=== PATIENT | male | born 1955 | race Caucasian/White ===

== ENCOUNTER 2016-07-15 19:24 | Emergency (ER) | payer OTHER ==
[~2016-07-15 19:24] MED LIST: TRAM-29 PO
--- NOTE | 2016-07-15 20:32 | PHYS DOC ---
Past Medical History Past Medical History: No Pertinent History Past Surgical History: Other Additional Past Surgical Histo: bilateral groin hernia repair Additional Information: 3 ppd Alcohol Use: None Drug Use: None Adult General Chief Complaint Chief Complaint: LOWER EXT PAIN [facility] HPI Patient is a 61 year old male who presents emergency room today with complaint of bilateral lower leg swelling and redness that is been going on for greater than 1 month. States he has redness that is constant bilaterally and fluctuating bilateral lower extremity swelling. States swelling is worse in the evening after work. Has achy pain when swelling is worst. Swelling improves after he sleeps. He is not purposefully elevating feet. Patient's was concerned that it may be due to an episode that happened years ago in which a tree had fallen onto his left leg causing an injury. 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 He denies any additional injury to his leg. Patient states that he does have a primary care doctor. He denies any history of chronic, ongoing medical conditions. He denies antibiotic use within the past 90 days. He states that the pain in his left leg in the swelling in his foot is primary reason for coming to the emergency room tonight. Review of Systems Review of Systems Constitutional: Denies fever or chills [] Eyes: Denies change in visual acuity, redness, or eye pain [] HENT: Denies nasal congestion or sore throat [] Respiratory: Denies cough or shortness of breath [] Cardiovascular: No additional information not addressed in HPI [] GI: Denies abdominal pain, nausea, vomiting, bloody stools or diarrhea [] : Denies dysuria or hematuria [] Musculoskeletal: Denies back pain or joint pain [] Integument: Denies rash or skin lesions [] Neurologic: Denies headache, focal weakness or sensory changes [] Endocrine: Denies polyuria or polydipsia [] Allergies Allergies Allergies Coded Allergies Type Severity Reaction Last Updated Verified codeine Allergy Intermediate Rash 06/07/14 Yes Physical Exam Physical Exam Constitutional: Well developed, well nourished, no acute distress, non-toxic appearance. Patient is afebrile. HENT: Normocephalic, atraumatic, bilateral external ears normal, oropharynx moist, no oral exudates, nose normal. [] Eyes: PERRLA, EOMI, conjunctiva normal, no discharge. [] Neck: Normal range of motion, no tenderness, supple, no stridor. [] Cardiovascular:Heart rate regular rhythm, no murmur [] Lungs & Thorax: Bilateral breath sounds clear to auscultation [] Abdomen: Bowel sounds normal, soft, no tenderness, no masses, no pulsatile masses. [] Skin: Warm, dry, no erythema, no rash. [] Back: No tenderness, no CVA tenderness. [] Extremities: Bilateral lower extremities with 2+ edema distal to knees. Left minimally greater than right. No tenderness/warmth/crepitance/induration/ fluctuance. The color and character of the patient's skin is more consistent with chronic venous stasis and hemosiderin deposition in the skin itself.. There are callous formation primarily to the medial and lateral aspects of each foot were friction areas from shoe wear would be. There are also small blisters to the medial edge of his feet with clear fluid filling. These areas are nontender. There is no purulent drainage. Neurologic: Alert and oriented X 3, normal motor function, normal sensory function, no focal deficits noted. [] Psychologic: Affect normal, judgement normal, mood normal. [] Current Patient Data Vital Signs Vital Signs Date Time Temp Pulse Resp B/P Pulse Ox O2 Delivery O2 Flow Rate FiO2 07/15/16 21:54 86 22 162/93 98 Room Air 07/15/16 20:10 98.3 98.3 Lab Values Laboratory Tests Test 07/15/16 20:31 White Blood Count 6.9x10^3/uL (4.0-11.0) Red Blood Count 4.68x10^6/uL (4.30-5.70) Hemoglobin 14.9g/dL (13.0-17.5) Hematocrit 44.4% (39.0-53.0) Mean Corpuscular Volume 95fL (79-100) Mean Corpuscular Hemoglobin 32pg (25-35) Mean Corpuscular Hemoglobin Concent 34g/dL (31-37) Red Cell Distribution Width 13.7% (11.5-14.5) Platelet Count 228x10^3/uL (140-400) Neutrophils (%) (Auto) 47% (31-73) Lymphocytes (%) (Auto) 37% (24-48) Monocytes (%) (Auto) 10% (0-9) H Eosinophils (%) (Auto) 6% (0-3) H Basophils (%) (Auto) 1% (0-3) Neutrophils # (Auto) 3.2x10^3uL (1.8-7.7) Lymphocytes # (Auto) 2.6x10^3/uL (1.0-4.8) Monocytes # (Auto) 0.7x10^3/uL (0.0-1.1) Eosinophils # (Auto) 0.4x10^3/uL (0.0-0.7) Basophils # (Auto) 0.1x10^3/uL (0.0-0.2) Sodium Level 139mmol/L (136-145) Potassium Level 3.6mmol/L (3.5-5.1) Chloride Level 104mmol/L (98-107) Carbon Dioxide Level 27mmol/L (21-32) Anion Gap 8 (6-14) Blood Urea Nitrogen 13mg/dL (8-26) Creatinine 0.7mg/dL (0.7-1.3) Estimated GFR (Cockcroft-Gault) 113.9 BUN/Creatinine Ratio 19 (6-20) Glucose Level 114mg/dL (70-99) H Calcium Level 9.3mg/dL (8.5-10.1) Total Bilirubin 0.5mg/dL (0.2-1.0) Aspartate Amino Transferase (AST) 95U/L (15-37) H Alanine Aminotransferase (ALT) 129U/L (16-63) H Alkaline Phosphatase 139U/L (46-116) H Troponin I Quantitative < 0.017ng/mL (0.000-0.055) LX-Wqh-N-Type Natriuretic Peptide 41pg/mL (0-124) Total Protein 7.7g/dL (6.4-8.2) Albumin 3.6g/dL (3.4-5.0) Albumin/Globulin Ratio 0.9 (1.0-1.7) L Laboratory Tests 07/15/16 20:31 Laboratory Tests 07/15/16 20:31 EKG EKG Twelve-lead EKG performed at 2028 shows a sinus rhythm with a heart rate of 103 bpm. There appeared to be PACs. MD interval is 152 ms with a QRS mandaeism of 88 ms and a QT duration of 468 ms. Radiology/Procedures Radiology/Procedures 3 views patient's left leg, ankle and foot were performed with adequate technique. The lamination technician had initially performed x-rays of the right leg instead of the left. There is no evidence of acute injury, osteomyelitis. There is evidence of an old avulsion fracture the base of the fifth metatarsal. Course & Med Decision Making Course & Med Decision Making Patient was moved from the [facility] area the emergency department to the acute area for IV access, laboratory work and EKG to workup possible infectious vs cardiogenic vs other cause of edema and skin discoloration. Laboratory evaluation is unremarkable other than transaminitis which is not likely related to his current issue. Discussed he likely has chronic venous stasis changes. Discussed symptomatic care with leg elevation and use of compressive stockings. Discussed the importance of follow-up with primary care for further symptomatic care and evaluation. Return precautions given. He understands and agrees with plan. Patient was seen and examined with FABIO Bourgeois. I agree with documentation. I have edited documentation to coincide with my encounter as well as his. -MD Ivette Panchal Disclaimer Ivette Disclaimer This electronic medical record was generated, in whole or in part, using a voice recognition dictation system. Departure Departure Impression: Primary Impression: Venous stasis dermatitis Additional Impression: Friction blisters of the soles Disposition: 01 HOME, SELF-CARE Condition: GOOD Referrals: UNKNOWN PCP NAME (PCP) Patient Instructions: Blisters, Venous Stasis and Chronic Venous Insufficiency Additional Instructions: 1. There is no evidence of infection at this time. Your laboratory work and x- rays here today are normal. 2. Review the discharge instructions provided for self-care guidelines and reasons to return to the emergency department. You will need to put your feet above the level of your heart at the end of the day to help get the swelling down in your legs. 3. You need a primary care doctor to address your medical concerns. A pamphlet is provided to you for assistance in finding a primary care doctor in which you should follow-up within the next 7-10 days. Problem Qualifiers LEE SANTIAGO Jul 15, 2016 20:32 Felicia CARSON MD Jul 16, 2016 22:14
[2016-07-15 20:39] LABS: BASO # 0.1 x10^3/uL (0.0-0.2); BASO % 1 % (0-3); EOS % 6 % (0-3); HEMATOCRIT 44.4 % (39.0-53.0); HEMOGLOBIN 14.9 g/dL (13.0-17.5); LYMPH # 2.6 x10^3/uL (1.0-4.8); LYMPH % 37 % (24-48); MEAN CORPUSCULAR HEMOGLOBIN 32 pg (25-35); MEAN CORPUSCULAR HGB CONC 34 g/dL (31-37); MEAN CORPUSCULAR VOLUME 95 fL (79-100); MONO % 10 % (0-9); NEUT % 47 % (31-73); PLATELET COUNT 228 x10^3/uL (140-400); RED BLOOD COUNT 4.68 x10^6/uL (4.30-5.70); RED CELL DISTRIBUTION WIDTH 13.7 % (11.5-14.5); WHITE BLOOD COUNT 6.9 x10^3/uL (4.0-11.0)
[2016-07-15 21:04] LABS: CALCIUM 9.3 mg/dL (8.5-10.1); CREATININE 0.7 mg/dL (0.7-1.3); GFR 113.9; POTASSIUM 3.6 mmol/L (3.5-5.1)
[2016-07-15 21:10] LABS: TOTAL BILIRUBIN 0.5 mg/dL (0.2-1.0); TOTAL PROTEIN 7.7 g/dL (6.4-8.2)
[2016-07-15 21:26] LABS: ALBUMIN 3.6 g/dL (3.4-5.0); ALBUMIN/GLOBULIN RATIO 0.9 (1.0-1.7)
[2016-07-15 21:54] VITALS: BP 162/93
--- NOTE | 2016-07-16 06:31 | EKG ---
[facility] [address] [place] [address] Test Date: 2016-07-15 Test Time: 20:29:42 Pat Name: DEANDRE WARREN Department: Room: Gender: M Physical Therapy Resident: : 1955 Requested By: LEE SANTIAGO Order Number: [id number] Reading MD: Measurements Intervals [place] Rate: 103 P: 38 [place]: 152 QRS: 43 QRSD: 88 T: 43 QT: 356 QTc: 468 Interpretive Statements SINUS TACHYCARDIA ATRIAL PREMATURE COMPLEX(ES) OTHERWISE NORMAL ECG RI6.01 No previous ECG available for comparison
--- NOTE | 2016-07-16 09:10 | RAD ---
Bilateral feet, 6 views, 07/15/2016: History: Foot pain, erythema A well-defined calcific density adjacent to the base of the fifth metatarsal is compatible with an old nonunited fracture fragment. There are mild scattered degenerative changes, including the first MTP joints bilaterally. No acute fracture or destructive bony lesion is seen. There is moderate diffuse soft tissue swelling about both feet. IMPRESSION: 1. Old nonunited fracture fragment at the base of the right fifth metatarsal. 2. Mild degenerative changes. 3. No acute bony abnormality is detected. Bilateral ankles, 6 views, 07/15/2016: No acute fracture or dislocation is identified. There is moderate diffuse soft tissue swelling about both ankles. IMPRESSION: No acute bony abnormality is detected. Bilateral lower legs, 4 views, 07/15/2016: History: Pain, swelling No fracture or destructive bony lesion is seen. There is moderate diffuse subcutaneous edema about both lower legs.
== END 2016-07-15 22:01 | disposition home or self-care (01) ==
LOC: ER 19:24
DX: I83.10 Varicose veins of unspecified lower extremity with inflammation (principal); F17.200 Nicotine dependence, unspecified, uncomplicated; Z88.6 Allergy status to analgesic agent
CPT/HCPCS: 36415; 73590; 73610; 73630; 80053; 83880; 84484; 85027; 93005; 99285-25

== ENCOUNTER 2017-01-07 09:57 | Emergency (ER) | payer OTHER ==
[~2017-01-07] VITALS: Ht 175.3 cm; Wt 83.9 kg
[~2017-01-07 09:57] MED LIST changes: -TRAM-29 PO; +TRAM-48 PO
[2017-01-07 10:10] VITALS: BP 125/81
--- NOTE | 2017-01-07 10:44 | RAD ---
Indication pain. Fall. AP oblique and lateral views of the left wrist were obtained. There are chronic changes involving the carpal bones. There appears to be an old, healed, fracture associated with the navicular. There is a subtle lucency through the radial styloid suggesting a nondisplaced fracture at this level. No additional bony finding seen IMPRESSION: Probable nondisplaced fracture involving the radial styloid
--- NOTE | 2017-01-07 10:56 | PHYS DOC ---
Past Medical History Past Medical History: Asthma Past Surgical History: Other Additional Past Surgical Histo: bilateral groin hernia repair, r arm sx Alcohol Use: None Drug Use: None Adult General Chief Complaint Chief Complaint: WRIST PAIN HPI HPI Patient is a 61 year old male with history of asthma who presents today complaining of moderate pain to the left distal radius that began 3 days ago after he fell on some logs. Patient denies any loss of consciousness. Review of Systems Review of Systems Constitutional: Denies fever or chills [] Musculoskeletal: left wrist pain Integument: Denies rash or skin lesions [] Neurologic: Denies headache, focal weakness or sensory changes [] Endocrine: Denies polyuria or polydipsia [] Current Medications Current Medications Current Medications Medications (Trade) Dose Ordered Sig/[place] Start Time Stop Time Status Last Admin Dose Admin Fentanyl Citrate (Fentanyl 2ml Vial) 50 mcg 1X ONCE 01/07/17 11:00 01/07/17 11:01 DC 01/07/17 10:37 50 MCG Ondansetron HCl (Zofran Odt) 4 mg 1X ONCE 01/07/17 11:00 01/07/17 11:01 DC 01/07/17 10:37 4 MG Allergies Allergies Allergies Coded Allergies Type Severity Reaction Last Updated Verified codeine Allergy Intermediate Rash 06/07/14 Yes Physical Exam Physical Exam Constitutional: Well developed, well nourished, no acute distress, non-toxic appearance. [] Skin: Warm, dry, no erythema, no rash. [] Back: No tenderness, no CVA tenderness. [] Extremities: Left wrist appears very swollen. Moderate tenderness on the distal radial bone on exam of the left wrist. Mild scaphoid tenderness. Full range of motion to the left fingers. Very limited range of motion to the left wrist. Adequate radial medial and ulnar sensation to the left hand. +2 left radial pulse. Cap refill less than 2 seconds the left fingers. Neurologic: Alert and oriented X 3, normal motor function, normal sensory function, no focal deficits noted. [] Psychologic: Affect normal, judgement normal, mood normal. [] Current Patient Data Vital Signs Vital Signs Date Time Temp Pulse Resp B/P (MAP) Pulse Ox O2 Delivery O2 Flow Rate FiO2 01/07/17 10:10 98.6 108 16 98 Room Air 98.6 EKG EKG [] Radiology/Procedures Radiology/Procedures []PROCEDURE: WRIST 3V LEFT Indication pain. Fall. AP oblique and lateral views of the left wrist were obtained. There are chronic changes involving the carpal bones. There appears to be an old, healed, fracture associated with the navicular. There is a subtle lucency through the radial styloid suggesting a nondisplaced fracture at this level. No additional bony finding seen IMPRESSION: Probable nondisplaced fracture involving the radial styloid DICTATED and SIGNED BY: JANET ZARATE MD DATE: 01/07/17 1040 CC: KRISTI HAMM APRN; NO PCP; NON,STAFF ~ Course & Med Decision Making Course & Med Decision Making Pertinent Labs and Imaging studies reviewed. (See chart for details) Patient is in the ED with left wrist pain after falling. Left wrist x-rays interpreted by radiologist 3 views:probable nondisplaced fracture involving the radial styloid. Patient was placed in a thumb spica by the endoscopy technician, neurovascular exam done by me is normal. Follow-up with orthopedic doctor by calling the office today. Ice elevation encouraged. Dragon Disclaimer Dragon Disclaimer This electronic medical record was generated, in whole or in part, using a voice recognition dictation system. Departure Departure Impression: Primary Impression: Radius distal fracture Additional Impression: Fall from standing Disposition: 01 HOME, SELF-CARE Condition: STABLE Referrals: NO PCP (PCP) Call the orthopedic doctor provided today and set up a follow-up appointment LUX RAMOS MD Patient Instructions: Wrist Fracture Additional Instructions: You were seen for left wrist fracture. Ice and elevate the extremity. Take Tylenol or Motrin as needed for pain. Follow-up with the orthopedic doctor provided by calling the office today to set up a follow-up appointment. Scripts Ondansetron (ZOFRAN ODT) 4 Mg Tab.rapdis 1 TAB SL Q8HRS, #15 TAB Prov: KRISTI HAMM APRN 01/07/17 Problem Qualifiers Primary Impression: Radius distal fracture Encounter type: initial encounter Fracture type: closed Fracture morphology : unspecified fracture morphology Laterality: left Qualified Codes: S52.502A - Unspecified fracture of the lower end of left radius, initial encounter for closed fracture Additional Impression: Fall from standing Encounter type: initial encounter Qualified Codes: W19.XXXA - Unspecified fall, initial encounter KRISTI HAMM APRN Jan 07, 2017 10:56
[2017-01-07] MEDS ORDERED: fentaNYL PF VIAL 100 MCG/2 ML VIAL IM ONE (11:00)
[2017-01-07] MEDS ORDERED: ONDANSETRON ODT 4 MG TAB.RAPDIS. PO ONE (11:00)
[2017-01-07] MEDS ORDERED: ONDA4TAB10 SL (11:08)
== END 2017-01-07 11:16 | disposition home or self-care (01) ==
LOC: ER 09:57
DX: S52.502A Unspecified fracture of the lower end of left radius, initial encounter for closed fracture (principal); J45.909 Unspecified asthma, uncomplicated; Z88.5 Allergy status to narcotic agent; Z98.890 Other specified postprocedural states; W18.30XA Fall on same level, unspecified, initial encounter; Y93.89 Activity, other specified; Y99.8 Other external cause status; Y92.89 Other specified places as the place of occurrence of the external cause
CPT/HCPCS: 29125; 73110; 96372; 99284; J3010; Q0162

== ENCOUNTER 2017-03-21 12:44 | Emergency (ER) | payer OTHER ==
[~2017-03-21] VITALS: Ht 175.3 cm; Wt 83.5 kg
[~2017-03-21 12:44] MED LIST changes: +ONDA4TAB10 SL
[2017-03-21 12:58] VITALS: BP 105/73
[2017-03-21] MEDS ORDERED: IBUP800T19 PO (13:08)
[2017-03-21] MEDS ORDERED: CYCL5TAB PO (13:08)
--- NOTE | 2017-03-21 13:08 | PHYS DOC ---
Past Medical History Past Medical History: Asthma Past Surgical History: Other Additional Past Surgical Histo: bilateral groin hernia repair, r arm sx Alcohol Use: None Drug Use: None Adult General Chief Complaint Chief Complaint: NECK INJURY [facility] HPI Patient is a 61 year old male presents the ED complaining of right shoulder injury times one day ago. Patient states he was lifting a log and felt a pull in his muscle above the shoulder. Describes the pain as sharp. Rates the pain as 5 out of 10. States the pain is worse with range of motion. Denies chest pain , shortness of breath, dizziness, neck pain, trauma, headache, vision changes or fever. Review of Systems Review of Systems Constitutional: Denies fever or chills [] Eyes: Denies change in visual acuity, redness, or eye pain [] HENT: Denies nasal congestion or sore throat [] Respiratory: Denies cough or shortness of breath [] Cardiovascular: No additional information not addressed in HPI [] GI: Denies abdominal pain, nausea, vomiting, bloody stools or diarrhea [] : Denies dysuria or hematuria [] Musculoskeletal: Complains of shoulder pain. Denies back pain or joint pain [] Integument: Denies rash or skin lesions [] Neurologic: Denies headache, focal weakness or sensory changes [] Endocrine: Denies polyuria or polydipsia [] Allergies Allergies Allergies Coded Allergies Type Severity Reaction Last Updated Verified codeine Allergy Intermediate Rash 06/07/14 Yes Physical Exam Physical Exam Constitutional: Well developed, well nourished, no acute distress, non-toxic appearance. [] HENT: Normocephalic, atraumatic, bilateral external ears normal, oropharynx moist, no oral exudates, nose normal. [] Eyes: PERRLA, EOMI, conjunctiva normal, no discharge. [] Neck: Normal range of motion, no tenderness, supple, no stridor. [] Cardiovascular:Heart rate regular rhythm, no murmur [] Lungs & Thorax: Bilateral breath sounds clear to auscultation [] Abdomen: Bowel sounds normal, soft, no tenderness, no masses, no pulsatile masses. [] Skin: Warm, dry, no erythema, no rash. [] Back: No tenderness, no CVA tenderness. [] Extremities: MILD TENDERNESS TO TRAPEZIUS MUSCLE WITH FLEXION OF SHOULDER. NO BONY TENDERNESS. no cyanosis, no clubbing, ROM intact, no edema. [] Neurologic: Alert and oriented X 3, normal motor function, normal sensory function, no focal deficits noted. [] Psychologic: Affect normal, judgement normal, mood normal. [] Current Patient Data Vital Signs Vital Signs Date Time Temp Pulse Resp B/P (MAP) Pulse Ox O2 Delivery O2 Flow Rate FiO2 03/21/17 12:58 97.6 61 16 98 Room Air 97.6 EKG EKG [] Radiology/Procedures Radiology/Procedures [] Course & Med Decision Making Course & Med Decision Making Pertinent Labs and Imaging studies reviewed. (See chart for details) []No bony tenderness. No x-ray warranted. Patient requesting muscle relaxers. Will discharge with ibuprofen and Flexeril. Discussed symptomatic treatment and follow-up with orthopedics. Discussed reasons to return to the ED. Patient understands and agrees with plan. Dragon Disclaimer Dragon Disclaimer This electronic medical record was generated, in whole or in part, using a voice recognition dictation system. Departure Departure Impression: Primary Impression: Muscle strain Disposition: 01 HOME, SELF-CARE Condition: STABLE Referrals: NO PCP (PCP) DEANDRE DYKES MD Patient Instructions: Muscle Strain Scripts Cyclobenzaprine Hcl (CYCLOBENZAPRINE HCL) 5 Mg Tablet 1 TAB PO TID, #14 TAB Prov: SELENE MOREL 03/21/17 Ibuprofen (Ibuprofen) 800 Mg Tablet 800 MG PO Q6-8HRS, #14 TAB Prov: SELENE MOREL 03/21/17 SELENE MOREL Mar 21, 2017 13:08
== END 2017-03-21 13:15 | disposition home or self-care (01) ==
LOC: ER 12:44
DX: S46.911A Strain of unspecified muscle, fascia and tendon at shoulder and upper arm level, right arm, initial encounter (principal); J45.909 Unspecified asthma, uncomplicated; Z88.5 Allergy status to narcotic agent; X50.0XXA Overexertion from strenuous movement or load, initial encounter; Y93.89 Activity, other specified; Y99.8 Other external cause status; Y92.89 Other specified places as the place of occurrence of the external cause
CPT/HCPCS: 99283

== ENCOUNTER 2017-09-23 15:17 | Emergency (ER) | payer OTHER | END 2017-09-23 16:41 | disposition left against medical advice (07) | LOC: ER 16:41 | DX: M79.671 Pain in right foot (principal); Z53.21 Procedure and treatment not carried out due to patient leaving prior to being seen by health care provider ==

== ENCOUNTER 2019-01-12 08:44 | Emergency (ER) | payer MEDICAID, OTHER ==
[~2019-01-12] VITALS: Ht 175.3 cm; Wt 81.6 kg
[~2019-01-12 08:44] MED LIST changes: +CYCL5TAB PO; +IBUP800T19 PO
[2019-01-12 09:17] VITALS: BP 143/91
--- NOTE | 2019-01-12 09:38 | PHYS DOC ---
Past Medical History Past Medical History: Asthma Past Surgical History: Other Additional Past Surgical Histo: bilateral groin hernia repair, r arm sx Alcohol Use: None Drug Use: None Adult General Chief Complaint Chief Complaint: HAND PROBLEM HPI HPI Patient is a 63 year old male presents to the ED complaining of right hand injury �2 days ago. 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 States he landed on his right hand. Describes the pain as sharp. Rates the pain as 7 out of 10. Denies head/neck injury, LOC, vision changes, nausea/vomiting, dizziness, weakness, symptoms prior to fall or use of blood thinners. Review of Systems Review of Systems Constitutional: Denies fever or chills [] Eyes: Denies change in visual acuity, redness, or eye pain [] HENT: Denies nasal congestion or sore throat [] Respiratory: Denies cough or shortness of breath [] Cardiovascular: No additional information not addressed in HPI [] GI: Denies abdominal pain, nausea, vomiting, bloody stools or diarrhea [] : Denies dysuria or hematuria [] Musculoskeletal: Complains of hand pain. Denies back pain.[] Integument: Denies rash or skin lesions [] Neurologic: Denies headache, focal weakness or sensory changes [] All other systems were reviewed and found to be within normal limits, except as documented in this note. Allergies Allergies Allergies Coded Allergies Type Severity Reaction Last Updated Verified codeine Allergy Intermediate Rash 06/07/14 Yes Physical Exam Physical Exam Constitutional: Well developed, well nourished, no acute distress, non-toxic appearance. [] HENT: Normocephalic, atraumatic Neck: Normal range of motion, no tenderness, supple, no stridor. [] Cardiovascular:Heart rate regular rhythm, no murmur [] Lungs & Thorax: Bilateral breath sounds clear to auscultation [] Skin: Warm, dry, no erythema, no rash. [] Back: No tenderness, no CVA tenderness. [] Extremities: mild right 4th and 5th metacarpal tenderness, Decreased ROM with extension due to pain. NV intact. no overlying skin changes. no cyanosis, no clubbing, ROM intact. [] Neurologic: Alert and oriented X 3, normal motor function, normal sensory function, no focal deficits noted. [] Psychologic: Affect normal, judgement normal, mood normal. [] Current Patient Data Vital Signs Vital Signs Date Time Temp Pulse Resp B/P (MAP) Pulse Ox O2 Delivery O2 Flow Rate FiO2 01/12/19 09:17 97.8 89 16 143/91 (108) 96 Room Air 97.8 EKG EKG [] Radiology/Procedures Radiology/Procedures []PROCEDURE: HAND RIGHT 3V Three-view right hand study Clinical indications: Injury and pain FINDINGS: No acute fracture or dislocation or lytic process is seen. Degenerative spurring of the interphalangeal joints and the first metacarpal phalangeal joint and third metacarpal phalangeal joint and the first carpal metacarpal joint and the scaphoid trapezium joint is seen. There is medial subluxation of the first proximal phalanx with respect to the first metacarpal bone. This may be secondary to ligament laxity from degenerative osteoarthritis or could be due to a ligament injury. IMPRESSION: No acute osseous abnormality. Subluxation of the first metacarpal phalangeal joint. Degenerative osteoarthritis. Course & Med Decision Making Course & Med Decision Making Pertinent Labs and Imaging studies reviewed. (See chart for details) []Discussed imaging findings with patient. Patient's pain improved in the ED. Patient placed in a brace. Neurovascular intact post placement. Discussed symptomatic treatment. Discussed follow-up with orthopedics if pain persists. Provided contact information/education. Discussed reasons to return to the ED. Patient understands and agrees with plan. Dragon Disclaimer Dragon Disclaimer This electronic medical record was generated, in whole or in part, using a voice recognition dictation system. Departure Departure Impression: Primary Impression: Hand sprain Disposition: 01 HOME, SELF-CARE Condition: IMPROVED Referrals: NO PCP (PCP) PASTOR SANTAMARIA MD Patient Instructions: Hand Injuries SELENE MOREL Jan 12, 2019 09:38
--- NOTE | 2019-01-12 10:03 | RAD ---
Three-view right hand study Clinical indications: Injury and pain FINDINGS: No acute fracture or dislocation or lytic process is seen. Degenerative spurring of the interphalangeal joints and the first metacarpal phalangeal joint and third metacarpal phalangeal joint and the first carpal metacarpal joint and the scaphoid trapezium joint is seen. There is medial subluxation of the first proximal phalanx with respect to the first metacarpal bone. This may be secondary to ligament laxity from degenerative osteoarthritis or could be due to a ligament injury. IMPRESSION: No acute osseous abnormality. Subluxation of the first metacarpal phalangeal joint. Degenerative osteoarthritis. Electronically signed by: David Hodges MD (01/12/2019 10:00 AM) [facility]
== END 2019-01-12 10:33 | disposition home or self-care (01) ==
LOC: ER 08:44
DX: S63.8X1A Sprain of other part of right wrist and hand, initial encounter (principal); J45.909 Unspecified asthma, uncomplicated; Z88.5 Allergy status to narcotic agent; W23.1XXA Caught, crushed, jammed, or pinched between stationary objects, initial encounter; Y93.89 Activity, other specified; Y92.89 Other specified places as the place of occurrence of the external cause; Y99.0 Civilian activity done for income or pay
CPT/HCPCS: 29125; 73130; 99284

== ENCOUNTER 2019-07-25 11:09 | Emergency (ER) | payer MEDICAID ==
[~2019-07-25] VITALS: Ht 175.3 cm; Wt 84.1 kg
[2019-07-25] MEDS ORDERED: IPRATRPIUM/ALBUTEROL 0.5/2.5MG 3 ML NEBU. NEB ONE (12:15)
[2019-07-25 12:39] LABS: INFLUENZA A PATIENT NEGATIVE (NEGATIVE); INFLUENZA B PATIENT NEGATIVE (NEGATIVE)
--- NOTE | 2019-07-25 12:57 | RAD ---
CHEST PA LATERAL Clinical indications: Fever and cough for 3 days COMPARISON: June 07, 2014. Findings: No acute lung infiltrate or pleural effusion or pulmonary edema or lung mass or pneumothorax is seen. The heart size, pulmonary vasculature, mediastinum and both shakeel are unremarkable. The osseous structures appear intact. Impression: No acute radiographic abnormality is seen. Electronically signed by: David Hodges MD (07/25/2019 12:55 PM) [facility]
[2019-07-25] MEDS ORDERED: ALBU2.5V8 IH (13:13)
[2019-07-25] MEDS ORDERED: BENZ100C PO (13:13)
[2019-07-25] MEDS ORDERED: PRED50TA PO (13:13)
--- NOTE | 2019-07-25 13:13 | PHYS DOC ---
Past Medical History Past Medical History: Asthma Past Surgical History: Other Additional Past Surgical Histo: bilateral groin hernia repair, r arm sx Smoking Status: Current Every Day Smoker Alcohol Use: None Drug Use: None Adult General Chief Complaint Chief Complaint: COUGH HPI HPI Patient is a 64 year old male with history of asthma who presents to the ED today complaining of productive cough, subjective fevers, body aches and chills for 3 days. Review of Systems Review of Systems Constitutional: Reports subjective fevers, body aches and chills Eyes: Denies change in visual acuity, redness, or eye pain [] HENT: Denies nasal congestion or sore throat [] Respiratory: Reports cough, denies shortness of breath [] Cardiovascular: No additional information not addressed in HPI [] GI: Denies abdominal pain, nausea, vomiting, bloody stools or diarrhea [] : Denies dysuria or hematuria [] Musculoskeletal: Denies back pain or joint pain [] Integument: Denies rash or skin lesions [] Neurologic: Denies headache, focal weakness or sensory changes [] All other systems were reviewed and found to be within normal limits, except as documented in this note. Current Medications Current Medications Current Medications Medications (Trade) Dose Ordered Sig/Casper Start Time Stop Time Status Last Admin Dose Admin Albuterol/ Ipratropium (Duoneb) 3 ml 1X ONCE 07/25/19 12:15 07/25/19 12:16 DC 07/25/19 12:22 3 ML Allergies Allergies Allergies Coded Allergies Type Severity Reaction Last Updated Verified codeine Allergy Intermediate Rash 06/07/14 Yes Physical Exam Physical Exam Constitutional: Well developed, well nourished, no acute distress, non-toxic appearance. [] HENT: Normocephalic, atraumatic, bilateral external ears normal, oropharynx moist, no oral exudates, nose normal. [] Eyes: PERRLA, EOMI, conjunctiva normal, no discharge. [] Neck: Normal range of motion, no tenderness, supple, no stridor. [] Cardiovascular:Heart rate regular rhythm, no murmur [] Lungs & Thorax: Coarse lungs Abdomen: Bowel sounds normal, soft, no tenderness, no masses, no pulsatile masses. [] Skin: Warm, dry, no erythema, no rash. [] Back: No tenderness, no CVA tenderness. [] Extremities: No tenderness, no cyanosis, no clubbing, ROM intact, no edema. [] Neurologic: Alert and oriented X 3, normal motor function, normal sensory function, no focal deficits noted. [] Psychologic: Affect normal, judgement normal, mood normal. [] Current Patient Data Vital Signs Vital Signs Date Time Temp Pulse Resp B/P (MAP) Pulse Ox O2 Delivery O2 Flow Rate FiO2 07/25/19 12:24 Room Air 07/25/19 11:37 99.0 63 16 110/70 (83) 97 99.0 Lab Values Laboratory Tests Test 07/25/19 12:00 Influenza Type A Antigen Negative (NEGATIVE) Influenza Type B Antigen Negative (NEGATIVE) EKG EKG [] Radiology/Procedures Radiology/Procedures []PROCEDURE: CHEST PA & LATERAL CHEST PA LATERAL Clinical indications: Fever and cough for 3 days COMPARISON: June 07, 2014. Findings: No acute lung infiltrate or pleural effusion or pulmonary edema or lung mass or pneumothorax is seen. The heart size, pulmonary vasculature, mediastinum and both shakeel are unremarkable. The osseous structures appear intact. Impression: No acute radiographic abnormality is seen. Electronically signed by: Tom Hodges MD (07/25/2019 12:55 PM) [facility] DICTATED and SIGNED BY: TOM HODGES MD DATE: 07/25/19 0935 Course & Med Decision Making Course & Med Decision Making Pertinent Labs and Imaging studies reviewed. (See chart for details) This is a 64-year-old male patient presenting to the ED today with productive cough, fever body aches and chills for 3 days, negative influenza A or B. Chest x-ray interpreted by radiologist is negative for any acute findings. Discharged to home. Follow-up with PCP next week. Dragon Disclaimer Dragon Disclaimer This electronic medical record was generated, in whole or in part, using a voice recognition dictation system. Departure Departure Impression: Primary Impression: Acute bronchitis Additional Impression: Fever Disposition: 01 HOME, SELF-CARE Condition: STABLE Referrals: NO PCP (PCP) follow up in 1-2 weeks Patient Instructions: Acute Bronchitis, Fever, Adult Additional Instructions: Your Influenza test is negative, your chest x-ray is negative. We sent you home on medications, take them as prescribed. Follow-up with your doctor in one week Scripts Albuterol Sulfate (Proair Hfa) 8.5 Gm Hfa.aer.ad 2 PUFF IH PRN Q4-6HRS PRN for wheezing for 21 Days, #1 INHALER 0 Refills Prov: KRISTI HAMM APRN 07/25/19 Benzonatate (TESSALON PERLE) 100 Mg Capsule 1 CAP PO TID, #30 CAP Prov: KRISTI HAMM APRN 07/25/19 Prednisone (PREDNISONE) 50 Mg Tablet 1 TAB PO DAILY, #5 TAB Prov: KRISTI HAMM APRN 07/25/19 Problem Qualifiers Primary Impression: Acute bronchitis Bronchitis organism: unspecified organism Qualified Codes: J20.9 - Acute bronchitis, unspecified Additional Impression: Fever Fever type: unspecified Qualified Codes: R50.9 - Fever, unspecified KRISTI HAMM APRN Jul 25, 2019 13:13
[2019-07-25 13:20] VITALS: BP 127/72
== END 2019-07-25 13:22 | disposition home or self-care (01) ==
LOC: ER 11:09
DX: J20.9 Acute bronchitis, unspecified (principal); J45.909 Unspecified asthma, uncomplicated; F17.200 Nicotine dependence, unspecified, uncomplicated; Z88.5 Allergy status to narcotic agent
CPT/HCPCS: 71046; 87804; 94640; 99284; J7620

== ENCOUNTER 2019-07-30 17:36 | Inpatient (IN) | payer MEDICAID ==
[~2019-07-30] VITALS: Ht 182.9 cm; Wt 78.6 kg
[~2019-07-30 17:36] MED LIST changes: +ALBU2.5V8 IH; +BENZ100C PO; +PRED50TA PO
[2019-07-30 17:57] LABS: BASE EXCESS ABG -2 mmol/L (-3-3); HCO3 ABG 19 mmol/L (21-28); PCO2 ABG 23 mmHg (35-46); PO2 ABG 136 mmHg (65-108); SAT O2 ABG 99 % (92-99)
[2019-07-30] MEDS ORDERED: dilTIAZem IV PUSH 25 MG/5 ML VIAL IVP ONE (18:00)
[2019-07-30] MEDS ORDERED: IPRATRPIUM/ALBUTEROL 0.5/2.5MG 3 ML NEBU. NEB ONE (18:00)
[2019-07-30] MEDS ORDERED: ALBUTEROL SULFATE 2.5 MG/3 ML NEBU. CONT NEB ONE (18:00)
[2019-07-30] MEDS ORDERED: MORPHINE SULFATE 2 MG/ML VIAL. IV/SQ PRN (18:00)
[2019-07-30] MEDS ORDERED: dilTIAZem INJ 125 MG in IV NORMAL SALINE 100ML 100 ML IV ONE (18:00)
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
[2019-07-30 18:12] LABS: BASO % 0 % (0-3); EOS % 0 % (0-3); HEMATOCRIT 48.2 % (39.0-53.0); HEMOGLOBIN 16.6 g/dL (13.0-17.5); LYMPH # 0.6 x10^3/uL (1.0-4.8); LYMPH % 6 % (24-48); MEAN CORPUSCULAR HEMOGLOBIN 32 pg (25-35); MEAN CORPUSCULAR HGB CONC 34 g/dL (31-37); MEAN CORPUSCULAR VOLUME 94 fL (79-100); MONO % 0 % (0-9); NEUT # 9.4 x10^3/uL (1.8-7.7); NEUT % 94 % (31-73); PLATELET COUNT 298 x10^3/uL (140-400); RED BLOOD COUNT 5.12 x10^6/uL (4.30-5.70); RED CELL DISTRIBUTION WIDTH 13.5 % (11.5-14.5)
[2019-07-30 18:17] LABS: BILIRUBIN,URINE MODERATE (NEG); CLARITY,URINE CLOUDY; COLOR,URINE ORANGE; NITRITE,URINE POSITIVE (NEG); PROTEIN,URINE 100 mg/dL (NEG-TRACE)
[2019-07-30 18:22] LABS: FIO2 ABG 60
[2019-07-30 18:27] LABS: AMORPHOUS SEDIMENT,UR PRESENT /HPF; SQUAMOUS EPITHELIAL CELL,UR MOD /LPF
[2019-07-30 18:28] LABS: BACTERIA,URINE FEW /HPF (0-FEW); RBC,URINE OCC /HPF (0-2)
[2019-07-30 18:40] LABS: INFLUENZA A PATIENT POSITIVE (NEGATIVE); INFLUENZA B PATIENT NEGATIVE (NEGATIVE)
[2019-07-30] MEDS ORDERED: AMIODARONE 150 MG in IV DEXTROSE 5% 100ML 100 ML IV ONE (18:45)
[2019-07-30] MEDS ORDERED: AMIODARONE 450 MG in IV DEXTROSE 5% 250 ML IV PRN (18:45)
[2019-07-30] MEDS ORDERED: IV NORMAL SALINE 1000ML BAG 1,000 ML IV ONE (18:45)
[2019-07-30] MEDS ORDERED: DIGOXIN IV 500 MCG/2 ML AMPUL. IV ONE (18:45)
[2019-07-30 18:50] LABS: CALCIUM 8.9 mg/dL (8.5-10.1); GFR 74.8; POTASSIUM 3.2 mmol/L (3.5-5.1)
[2019-07-30] MEDS ORDERED: NORMAL SALINE IV SCH (18:53)
[2019-07-30 18:56] LABS: % ATYL 3 % (0-0); % BANDS 59 % (0-9); % LYMPHS 9 % (24-48); % MONOS 1 % (0-10); % SEGS 28 % (35-66); PLT ESTIMATE ADEQUATE (ADEQUATE); TOXIC GRANULATION MOD
[2019-07-30 18:56] LABS: ALBUMIN 2.1 g/dL (3.4-5.0); ALBUMIN/GLOBULIN RATIO 0.5 (1.0-1.7); TOTAL BILIRUBIN 2.3 mg/dL (0.2-1.0); TOTAL PROTEIN 6.5 g/dL (6.4-8.2)
[2019-07-30 18:57] LABS: TOXIC VACUOLATION MOD
[2019-07-30] MEDS ORDERED: PIPERACILLIN/TAZOBACTAM 4.5 GM in IV NORMAL SALINE 100ML 100 ML IV ONE (19:00)
[2019-07-30] MEDS ORDERED: NOREPINEPHRINE VIAL 8 MG in IV DEXTROSE 5% 250 ML IV PRN (19:00)
[2019-07-30] MEDS ORDERED: VANCOMYCIN PER PHARMACY MC ONE (19:00)
--- NOTE | 2019-07-30 19:12 | RAD ---
AP chest. HISTORY: Dyspnea Portal AP view was taken of the chest. There is been marked worsening compared to the study of July 25. There is a consolidating infiltrate superimposed on the right hilum. There is a right pleural effusion. There are other basilar infiltrates on the right. There is mild infiltrate in the medial left lung base. Heart is normal in size. IMPRESSION: 1. Worsening infiltrates. 2. Right pleural effusion. 3. Follow-up study recommended. Electronically signed by: Daniel Nieves MD (07/30/2019 7:09 PM) [id number]
[2019-07-30] MEDS ORDERED: MORPHINE SULFATE 4 MG/ML VIAL. IV PRN (19:15)
[2019-07-30] MEDS ORDERED: VANCOMYCIN 2 GM in IV NORMAL SALINE 500ML BAG 500 ML IV ONE (19:15)
[2019-07-30] MEDS ORDERED: MIDAZOLAM HCL 50 MG in IV NORMAL SALINE 50ML 50 ML IV PRN (19:15)
[2019-07-30] MEDS ORDERED: MORPHINE SULFATE 2 MG/ML VIAL. IV PRN (19:15)
[2019-07-30] MEDS ORDERED: fentaNYL PF VIAL 100 MCG/2 ML VIAL IV PRN ×2 (19:15)
--- NOTE | 2019-07-30 20:12 | EKG ---
[facility] [address] [place] [address] Test Date: 2019-07-30 Test Time: 18:10:43 Pat Name: DEANDRE WARREN Department: Room: Gender: M [employer] Support Specialist: : 1955 Requested By: RANDOLPH MAYS Order Number: [id number] Reading MD: Measurements Intervals Gary Rate: 185 P: AL: QRS: 31 QRSD: 92 T: 29 QT: 264 QTc: 463 Interpretive Statements IRREGULAR RHYTHM, NO P-WAVE FOUND T ABNORMALITY IN INFERIOR LEADS ABNORMAL ECG RI6.01 No previous ECG available for comparison
--- NOTE | 2019-07-30 20:13 | RAD ---
AP chest. HISTORY: Post intubation AP view was taken of the chest. There is an endotracheal tube at the level the bottom of the clavicles just above the aortic arch. There is a right pleural effusion. There are right lung infiltrates. There is a right jugular central line extending to the mid superior vena cava. NG tube extends into the abdomen. IMPRESSION: 1. Endotracheal tube in good position. 2. Central line in good position. 3. Persistent right infiltrates and right pleural effusion. Electronically signed by: Daniel Nieves MD (07/30/2019 8:10 PM) [id number]
[2019-07-30] MEDS ORDERED: ACETAMINOPHEN 650 MG SUPP.RECT. PR ONE (20:15)
[2019-07-30] MEDS: POTASSIUM CHLORIDE 10MEQ 100 ML IV SCH ×2 (20:23→21:31)
[2019-07-30] MEDS ORDERED: ACETAMINOPHEN 325 MG TABLET. PO PRN (20:30)
[2019-07-30] MEDS ORDERED: ONDANSETRON PF 4 MG/2 ML VIAL. IV PRN (20:30)
[2019-07-30 20:32] LABS: BASE EXCESS COOX -7 mmol/L (-3-3); HCO3 COOX 24 mmol/L (21-28); METHEMOGLOBIN 0.6 % (0.0-1.9); OXYHEMOGLOBIN 86.5 %; PO2 COOX 67 mmHg (65-108); SAT O2 COOX 88 % (92-99)
[2019-07-30 20:35] LABS: CORRECTED PCO2 COOX 79 mmHg; CORRECTED PH COOX 7.12; CORRECTED PO2 COOX 80 mmHg
[2019-07-30] MEDS: CHLORHEXIDINE 0.12% 15 ML MOUTHWASH. MM SCH (21:00)
[2019-07-30] MEDS ORDERED: ETOMIDATE 20 MG/10 ML VIAL. IV ONE ×2 (21:15→23:45)
[2019-07-30] MEDS ORDERED: ROCURONIUM 50 MG/5 ML VIAL. ONE (21:16)
--- NOTE | 2019-07-30 21:34 | RAD ---
Exam: Ultrasound right lower extremity arterial study Indication: Cold legs with dorsal pedal pulse Technique: Real-time grayscale and color Doppler images of the right lower extremity were obtained by the department children's literature professor. Comparisons: None FINDINGS: Peak systolic velocities as follows(cm/s) GATE TENDER: 144 DFA: 122 Proximal SFA: 114 Mid SFA: 137 Distal SFA: 135 Popliteal: 89 SUPPLY CHAIN SYSTEMS MANAGER proximal: 60 SUPPLY CHAIN SYSTEMS MANAGER distal: 76 Peroneal: 72 NILAY: 50 DPA: 24 Triphasic waveforms in the upper leg with biphasic waveforms from the popliteal artery into the distal lower extremity. Mild to moderate plaque in the GATE TENDER Mild plaque in the SFA and distal arterial extremity vessels vasculature IMPRESSION: Patent arterial vasculature in the right lower extremity. Mild to moderate plaque as described above. Electronically signed by: Don Chaudhry MD (07/30/2019 9:32 PM) [id number]
[2019-07-30] MEDS ORDERED: dilTIAZem INJ 125 MG in IV NORMAL SALINE 100ML 100 ML IV PRN (22:30)
[2019-07-30 22:36] LABS: PCO2 COOX 71 mmHg (35-46)
[2019-07-30] MEDS ORDERED: SODIUM BICARBONATE VIAL 100 MEQ in IV DEXTROSE 5% 1,000 ML IV ONE (23:00)
[2019-07-30 23:02] LABS: ALBUMIN/GLOBULIN RATIO 0.4 (1.0-1.7); CALCIUM 8.5 mg/dL (8.5-10.1); CREATININE 1.2 mg/dL (0.7-1.3); GFR 60.6; POTASSIUM 3.6 mmol/L (3.5-5.1); TOTAL BILIRUBIN 2.4 mg/dL (0.2-1.0); TOTAL PROTEIN 6.5 g/dL (6.4-8.2)
--- NOTE | 2019-07-30 23:12 | RAD ---
Exam: CT head INDICATION: Altered mental status TECHNIQUE: Sequential axial images through the head were obtained without the administration of IV contrast. Comparisons: None FINDINGS: No focal parenchymal lesion or hemorrhage is identified. There is no midline shift or sulcal effacement. No acute vascular territory infarction is identified. Lindsey-white distinction is preserved. The ventricular system is within normal limits without compression hydrocephalus. The basal cisterns are well maintained. The visualized portions of the paranasal sinuses and mastoid air cells are well-pneumatized. No acute fractures. IMPRESSION: No acute intracranial abnormality. Exposure: One or more of the following in the visualized dose reduction techniques were utilized for this examination: 1. Automated exposure control 2. Adjustment of the MA and/or KV according to patient size Use of iterative of reconstructive technique Electronically signed by: Don Chaudhry MD (07/30/2019 11:09 PM) [id number]
[2019-07-30 23:15] VITALS: BP 96/49
[2019-07-30 23:30] VITALS: BP 99/51
[2019-07-30 23:45] VITALS: BP 102/51
[2019-07-30] MEDS ORDERED: ROCURONIUM 50 MG/5 ML VIAL. IV ONE ×2 (23:45)
[2019-07-30 23:49] LABS: FIO2 ABG 65; HCO3 ABG 22 mmol/L (21-28); PCO2 ABG 58 mmHg (35-46); PO2 ABG 75 mmHg (65-108); SAT O2 ABG 93 % (92-99)
[2019-07-31] VITALS (25 sets, daily range): BP systolic 87–136; BP diastolic 42–71
[2019-07-31] MEDS ORDERED: HEPARIN 25,000UTS/250ML PREMIX 250 ML IV PRN
[2019-07-31] MEDS ORDERED: DIGOXIN IV 500 MCG/2 ML AMPUL. IV ONE (00:30)
[2019-07-31] MEDS: MIDAZOLAM HCL 50 MG in IV NORMAL SALINE 50ML 50 ML IV PRN ×2 (00:45→12:40)
[2019-07-31] MEDS: HEPARIN for IV BOLUS 10,000 UNIT/10 ML VIAL. IV PRN ×4 (01:03→23:13)
[2019-07-31] MEDS: HEPARIN 25,000UTS/250ML PREMIX 250 ML IV PRN ×2 (01:03→20:07)
[2019-07-31] MEDS: IPRATRPIUM/ALBUTEROL 0.5/2.5MG 3 ML NEBU. NEB SCH ×6 (01:37→20:53)
[2019-07-31] MEDS ORDERED: VANCOMYCIN PER PHARMACY MC PRN (02:30)
[2019-07-31] MEDS: IV NORMAL SALINE 1000ML BAG 1,000 ML IV SCH ×2 (02:30→10:50)
[2019-07-31] MEDS: ANTI-COAG MONITOR BY PHARMACY. MC PRN ×2 (03:29→13:57)
--- NOTE | 2019-07-31 03:31 | NUR ---
Pharmacy Vancomycin Dosing Note S:Consulted to monitor and dose vancomycin started 07/30/19. O:DEANDRE WARREN is a 64 year old M with Sepsis Pneumonia . Height: 5 feet, 9 inches Weight: 88.0 kg [place] Body Weight: 70.70 Adjusted Body Weight: 77.62 Dosing Weight: Actual Other Antibiotics: LABS: Last BUN: 35 Last Creatinine: 1.2 Creatinine Clearance: 66 mL/min Last WBC: 10 Last Procalcitonin: Tmax (past 24 hours): Microbiology: I/O: Drug Levels: Last level: on at Last dose given 07/30/19 at 2000 Vancomycin Dosing: Loading Dose: 2000 mg x1 Dosing Weight: Actual Target Trough: 15-20 A: Based on: WT AND CRCL P: 1. Begin Vancomycin 1250 mg IV q12h 2. Follow up Trough level on 08/01/19 at 0730 3. Pharmacy will continue to monitor, follow and adjust therapy as needed. ADELINE ZARATE RPH, 07/31/19330 Signed: 07/31/19 at 330 by ADELINE ZARATE RPH PHA
[2019-07-31 06:07] LABS: ALBUMIN 1.6 g/dL (3.4-5.0); ALBUMIN/GLOBULIN RATIO 0.4 (1.0-1.7); CALCIUM 7.6 mg/dL (8.5-10.1); CREATININE 1.7 mg/dL (0.7-1.3); GFR 40.5; POTASSIUM 3.4 mmol/L (3.5-5.1); TOTAL BILIRUBIN 2.2 mg/dL (0.2-1.0); TOTAL PROTEIN 5.5 g/dL (6.4-8.2)
[2019-07-31 06:10] LABS: BASO % 0 % (0-3); EOS % 0 % (0-3); HEMATOCRIT 41.7 % (39.0-53.0); HEMOGLOBIN 13.8 g/dL (13.0-17.5); LYMPH # 1.2 x10^3/uL (1.0-4.8); LYMPH % 7 % (24-48); MEAN CORPUSCULAR HEMOGLOBIN 32 pg (25-35); MEAN CORPUSCULAR HGB CONC 33 g/dL (31-37); MEAN CORPUSCULAR VOLUME 96 fL (79-100); MONO # 0.1 x10^3/uL (0.0-1.1); MONO % 1 % (0-9); NEUT # 15.2 x10^3/uL (1.8-7.7); NEUT % 92 % (31-73); PLATELET COUNT 301 x10^3/uL (140-400); RED BLOOD COUNT 4.35 x10^6/uL (4.30-5.70); RED CELL DISTRIBUTION WIDTH 13.8 % (11.5-14.5); WHITE BLOOD COUNT 16.5 x10^3/uL (4.0-11.0)
[2019-07-31] MEDS ORDERED: VANCOMYCIN 1.25 GM in IV NORMAL SALINE 250ML 250 ML IV SCH (08:00)
[2019-07-31 08:47] LABS: BASE EXCESS ABG -3 mmol/L (-3-3); HCO3 ABG 22 mmol/L (21-28); PCO2 ABG 37 mmHg (35-46); PO2 ABG 65 mmHg (65-108); SAT O2 ABG 93 % (92-99)
[2019-07-31 08:49] LABS: FIO2 ABG 50%
[2019-07-31] MEDS: CHLORHEXIDINE 0.12% 15 ML MOUTHWASH. MM SCH ×2 (09:04→21:15)
[2019-07-31] MEDS: MICAFUNGIN 100 MG in IV DEXTROSE 5% 100ML 100 ML IV SCH (09:05)
[2019-07-31] MEDS: OSELTAMIVIR 30 MG CAPSULE PO SCH ×2 (09:05→21:16)
--- NOTE | 2019-07-31 09:18 | NUR ---
IP: Pt is Influenza + requiring droplet precautions for 7 days and 24 hours without a fever, whichever is longest.
[2019-07-31] MEDS ORDERED: DAPTOmycin (GENERIC) IVPB 490 MG in IV NORMAL SALINE 50ML 50 ML IV SCH (10:00)
[2019-07-31] MEDS: MEROPENEM 1 GM in IV NORMAL SALINE 100ML 100 ML IV SCH ×2 (10:14→21:15)
[2019-07-31] MEDS ORDERED: POTASSIUM BICARB 20 MEQ EFFERVESCENT TABLET. PEG ONE (10:30)
--- NOTE | 2019-07-31 10:33 | PDOC1 ---
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 ventricular systolic function is normal. The ejection fraction is 55-60%. Trace mitral regurgitation. Trace tricuspid regurgitation with an estimated PAP of 27 mmHg. There is no evidence of significant pericardial effusion. Signed by : Leobardo Kim, Electronically Approved : 07/31/2019 13:10:54 AP chest. HISTORY: Post intubation AP view was taken of the chest. There is an endotracheal tube at the level the bottom of the clavicles just above the aortic arch. There is a right pleural effusion. There are right lung infiltrates. There is a right jugular central line extending to the mid superior vena cava. NG tube extends into the abdomen. IMPRESSION: 1. Endotracheal tube in good position. 2. Central line in good position. 3. Persistent right infiltrates and right pleural effusion. Electronically signed by: Daniel Nieves MD (07/30/2019 8:10 PM) [id number] VTE Prophylaxis Ordered VTE Prophylaxis Devices: Contraindicated VTE Pharmacological Prophylaxi: Yes Assessment/Plan Assessment/Plan impression 1. ACUTE HYPOXIC RESPIRATORY FAILURE 2. INFLUENZA A 3. Sepsis 4, PNA (pneumonia) 5. Altered mental status 6. ischemic right 4th toe 7. SONIA 8. a fib rvr 9. severe sepsis 10. homeless, self neglect due to lack of funds plan admit ICU BED CONSULT PULM CONSULT ID VENT SUPPORT CONSULT NEUROLOGY dvt prophylaxis vascular surgery consult Nephrology consult cardiology consult CORY Andrew MD Jul 31, 2019 10:33
--- NOTE | 2019-07-31 10:44 | PDOC2 ---
CARDIAC CONSULT DATE OF CONSULT Date of Consult DATE: 07/31/19 TIME: 10:20 SOURCE Source: Chart review, Patient PAST MEDICAL HISTORY Pulmonary: Asthma PAST SURGICAL HISTORY Past Surgical History: Hernia Repair (bilateral inguinal) FAMILY HISTORY Family History: Family History Unknown SOCIAL HISTORY Smoke: <1 pack per day ALCOHOL: none Drugs: None Lives: Alone CURRENT MEDICATIONS CURRENT MEDICATIONS Current Medications Medications (Trade) Dose Ordered Sig/[place] Route PRN Reason Start Time Stop Time Status Last Admin Dose Admin Albuterol/ Ipratropium (Duoneb) 3 ml 1X ONCE NEB 07/30/19 18:00 07/30/19 18:01 DC 07/30/19 18:00 Albuterol Sulfate (Ventolin Neb Soln) 10 mg 1X ONCE CONT NEB 07/30/19 18:00 07/30/19 18:01 DC 07/30/19 18:00 Morphine Sulfate (Morphine Sulfate) 2 mg PRN Q15MIN PRN IV/SQ PAIN GREATER THAN 3/10 07/30/19 18:00 07/31/19 00:10 DC 07/30/19 18:08 Diltiazem HCl (Cardizem Iv Push) 10 mg 1X ONCE IVP 07/30/19 18:00 07/30/19 18:01 DC 07/30/19 18:01 Diltiazem HCl 125 mg/Sodium Chloride 125 ml @ 5 mls/hr 1X ONCE IV 07/30/19 18:00 07/31/19 18:59 07/30/19 18:36 Lorazepam (Ativan Inj) 2 mg 1X ONCE IVP 07/30/19 18:15 07/30/19 18:16 DC 07/30/19 18:35 Digoxin (Lanoxin) 250 mcg 1X ONCE IV 07/30/19 18:45 07/30/19 18:46 DC 07/30/19 18:53 Amiodarone HCl 150 mg/Dextrose 103 ml @ 618 mls/hr 1X ONCE IV 07/30/19 18:45 07/30/19 18:54 DC 07/30/19 20:07 Amiodarone HCl 450 mg/Dextrose 259 ml @ 0 mls/hr CONT PRN IV SEE I/O RECORD 07/30/19 18:45 07/30/19 20:21 Sodium Chloride 1,000 ml @ 1,000 mls/hr 1X ONCE IV 07/30/19 18:45 07/31/19 02:15 DC 07/30/19 18:20 Sodium Chloride 2,130 ml @ 2,130 mls/hr Q1H IV 07/30/19 18:53 07/31/19 02:15 DC 07/30/19 19:02 Piperacillin Sod/ Tazobactam Sod 4.5 gm/Sodium Chloride 100 ml @ 200 mls/hr 1X ONCE IV 07/30/19 19:00 07/31/19 08:04 DC 07/30/19 19:06 Potassium Chloride/Water 100 ml @ 100 mls/hr Q1H IV 07/30/19 19:30 07/30/19 21:29 DC 07/30/19 21:31 Vancomycin HCl 2 gm/Sodium Chloride 500 ml @ 250 mls/hr 1X ONCE IV 07/30/19 19:15 07/30/19 21:14 DC 07/30/19 20:15 Chlorhexidine Gluconate (Peridex) 15 ml BID MM 07/30/19 21:00 07/31/19 09:04 Midazolam HCl 50 mg/Sodium Chloride 50 ml @ 0 mls/hr CONT PRN IV SEE PROTOCOL 07/30/19 19:15 07/31/19 00:10 DC 07/30/19 20:40 Acetaminophen (Tylenol Supp) 650 mg 1X ONCE [place] 07/30/19 20:15 07/30/19 20:16 DC 07/30/19 20:49 Heparin Sodium/ Dextrose 250 ml @ 0 mls/hr CONT PRN IV PER PROTOCOL 07/30/19 20:45 07/31/19 01:03 Heparin Sodium (Porcine) (Heparin Sodium) 2,200 unit PRN Q6HRS PRN IV FOR UFH LEVEL LESS THAN 0.2 07/30/19 20:45 07/31/19 07:59 Info (Anti-Coagulation Monitoring By Pharmacy) 1 each PRN DAILY PRN MC SEE COMMENTS 07/30/19 21:00 07/31/19 03:29 Sodium Bicarbonate 100 meq/Dextrose 1,100 ml @ 75 mls/hr 1X ONCE IV 07/30/19 23:00 07/31/19 13:39 07/31/19 01:54 Etomidate (Amidate) 20 mg 1X ONCE IV 07/30/19 23:45 07/30/19 23:46 DC 07/30/19 19:27 Rocuronium [place] (Zemuron) 50 mg 1X ONCE IV 07/30/19 23:45 07/30/19 23:46 DC 07/30/19 19:28 Rocuronium [place] (Zemuron) 50 mg 1X ONCE IV 07/30/19 23:45 07/30/19 23:46 DC 07/30/19 19:28 Digoxin (Lanoxin) 250 mcg 1X ONCE IV 07/31/19 00:30 07/31/19 00:31 DC 07/31/19 00:12 Fentanyl Citrate 30 ml @ 0 mls/hr CONT PRN IV SEE PROTOCOL 07/31/19 00:15 07/31/19 00:47 Midazolam HCl 50 mg/Sodium Chloride 50 ml @ 0 mls/hr CONT PRN IV SEE PROTOCOL 07/31/19 00:15 07/31/19 00:45 Albuterol/ Ipratropium (Duoneb) 3 ml Q4HRS NEB 07/31/19 04:00 07/31/19 08:32 Sodium Chloride 1,000 ml @ 120 mls/hr Q8H20M IV 07/31/19 02:30 07/31/19 02:30 Vancomycin HCl (Vanco Per Pharmacy) 1 each PRN DAILY PRN MC SEE COMMENTS 07/31/19 02:30 07/31/19 08:06 DC 07/31/19 03:30 Vancomycin HCl 1.25 gm/Sodium Chloride 250 ml @ 167 mls/hr Q12H IV 07/31/19 08:00 07/31/19 08:06 DC 07/31/19 07:57 Micafungin Sodium 100 mg/Dextrose 100 ml @ 100 mls/hr Q24H IV 07/31/19 08:00 07/31/19 09:05 Oseltamivir Phosphate (Tamiflu) 30 mg BID PO 07/31/19 09:00 08/05/19 08:59 07/31/19 09:05 Linezolid/Dextrose 300 ml @ 300 mls/hr Q12HR IV 07/31/19 09:00 07/31/19 10:04 Meropenem 1 gm/ Sodium Chloride 100 ml @ 200 mls/hr Q12HR IV 07/31/19 09:00 07/31/19 10:14 ALLERGIES ALLERGIES: Coded Allergies: codeine (Verified Allergy, Intermediate, Rash, 1/5/15) ROS Review of System unreliable, intubated PHYSICAL EXAM General: Other (sedated) HEENT: Atraumatic, Mucous membr. moist/pink Lungs: Other (vent, intubated) Abdomen: Soft Extremities: Other (1+ bilateral LE pitting edema; dusky right foot and hillman 4th toe; dopplerable DP) Skin: Other (right 4th toe lesion) Psych/Mental Status: Other (sedated) MUSCULOSKELETAL: Osteoarthritic changes both hands VITALS/I&O VITALS/I&O: Vital Signs Date Time Temp Pulse Resp B/P (MAP) Pulse Ox O2 Delivery O2 Flow Rate FiO2 07/31/19 09:30 97 Ventilator 07/31/19 09:00 111 20 95/61 (72) 07/31/19 08:00 101.2 101.2 07/31/19 01:17 80.0 I & O 07/30/19 07/30/19 07/31/19 15:00 23:00 07:00 Intake Total 3046.8 ml Output Total 185 ml Balance 3046.8 ml -185 ml LABS Lab: Laboratory Tests Test 07/30/19 17:45 07/30/19 17:53 07/30/19 18:00 07/30/19 18:12 White Blood Count 10.0 x10^3/uL (4.0-11.0) Red Blood Count 5.12 x10^6/uL (4.30-5.70) Hemoglobin 16.6 g/dL (13.0-17.5) Hematocrit 48.2 % (39.0-53.0) Mean Corpuscular Volume 94 fL (79-100) Mean Corpuscular Hemoglobin 32 pg (25-35) Mean Corpuscular Hemoglobin Concent 34 g/dL (31-37) Red Cell Distribution Width 13.5 % (11.5-14.5) Platelet Count 298 x10^3/uL (140-400) Neutrophils (%) (Auto) 94 % (31-73) H Lymphocytes (%) (Auto) 6 % (24-48) L Monocytes (%) (Auto) 0 % (0-9) Eosinophils (%) (Auto) 0 % (0-3) Basophils (%) (Auto) 0 % (0-3) Neutrophils # (Auto) 9.4 x10^3/uL (1.8-7.7) H Lymphocytes # (Auto) 0.6 x10^3/uL (1.0-4.8) L Monocytes # (Auto) 0.0 x10^3/uL (0.0-1.1) Eosinophils # (Auto) 0.0 x10^3/uL (0.0-0.7) Basophils # (Auto) 0.0 x10^3/uL (0.0-0.2) Segmented Neutrophils % 28 % (35-66) L Band Neutrophils % 59 % (0-9) H Lymphocytes % 9 % (24-48) L Atypical Lymphocytes % (Manual) 3 % (0-0) H Monocytes % 1 % (0-10) Toxic Granulation Mod Toxic Vacuolation Mod Platelet Estimate Adequate (ADEQUATE) Large Platelets Mod Giant Platelets Occ Lactic Acid Level 6.6 mmol/L (0.4-2.0) *H O2 Saturation 99 % (92-99) Arterial Blood pH 7.52 (7.35-7.45) H Arterial Blood pCO2 at Patient Temp 23 mmHg (35-46) L Arterial Blood pO2 at Patient Temp 136 mmHg (65-108) H Arterial Blood HCO3 19 mmol/L (21-28) L Arterial Blood Base Excess -2 mmol/L (-3-3) FiO2 60 Urine Collection Type Unknown Urine Color [place] Urine Clarity Cloudy Urine pH 6.0 Urine Specific [place] 1.025 Urine Protein 100 mg/dL (NEG-TRACE) Urine Glucose (UA) Negative mg/dL (NEG) Urine Ketones (Stick) Trace mg/dL (NEG) Urine Blood Small (NEG) Urine Nitrite Positive (NEG) Urine Bilirubin Moderate (NEG) Urine Urobilinogen Dipstick 2.0 mg/dL (0.2 mg/dL) Urine Leukocyte Esterase Small (NEG) Urine RBC Occ /HPF (0-2) Urine WBC 1-4 /HPF (0-4) Urine Squamous Epithelial Cells Mod /LPF Urine Amorphous Sediment Present /HPF Urine Bacteria Few /HPF (0-FEW) Urine Mucus Marked /LPF Influenza Type A Antigen Positive (NEGATIVE) Influenza Type B Antigen Negative (NEGATIVE) Test 07/30/19 18:15 07/30/19 18:25 07/30/19 20:26 07/30/19 21:25 Ammonia 14 mcmol/L (11-34) D-Dimer (Arlette) 2.92 ug/mlFEU (0.00-0.50) H Sodium Level 138 mmol/L (136-145) 139 mmol/L (136-145) Potassium Level 3.2 mmol/L (3.5-5.1) L 3.6 mmol/L (3.5-5.1) Chloride Level 99 mmol/L (98-107) 102 mmol/L (98-107) Carbon Dioxide Level 23 mmol/L (21-32) 22 mmol/L (21-32) Anion Gap 16 (6-14) H 15 (6-14) H Blood Urea Nitrogen 34 mg/dL (8-26) H 35 mg/dL (8-26) H Creatinine 1.0 mg/dL (0.7-1.3) 1.2 mg/dL (0.7-1.3) Estimated GFR (Cockcroft-Gault) 74.8 60.6 BUN/Creatinine Ratio 34 (6-20) H 29 (6-20) H Glucose Level 89 mg/dL (70-99) 98 mg/dL (70-99) Calcium Level 8.9 mg/dL (8.5-10.1) 8.5 mg/dL (8.5-10.1) Total Bilirubin 2.3 mg/dL (0.2-1.0) H 2.4 mg/dL (0.2-1.0) H Aspartate Amino Transferase (AST) 45 U/L (15-37) H 49 U/L (15-37) H Alanine Aminotransferase (ALT) 22 U/L (16-63) 22 U/L (16-63) Alkaline Phosphatase 73 U/L (46-116) 72 U/L (46-116) Troponin I Quantitative 0.041 ng/mL (0.000-0.055) 0.109 ng/mL (0.000-0.055) TS-Tpq-W-Type Natriuretic Peptide 727 pg/mL (0-124) H Total Protein 6.5 g/dL (6.4-8.2) 6.5 g/dL (6.4-8.2) Albumin 2.1 g/dL (3.4-5.0) L 2.0 g/dL (3.4-5.0) L Albumin/Globulin Ratio 0.5 (1.0-1.7) L 0.4 (1.0-1.7) L Thyroid Stimulating Hormone (TSH) 0.823 uIU/mL (0.358-3.74) O2 Saturation 88 % (92-99) L Arterial Blood pH 7.15 (7.35-7.45) *L Arterial Blood pH (Temp corrected) 7.12 Arterial Blood pCO2 at Patient Temp 71 mmHg (35-46) *H Arterial Blood pCO2 (Temp correct) 79 mmHg Arterial Blood pO2 at Patient Temp 67 mmHg (65-108) Arterial Blood pO2 (Temp corrected) 80 mmHg Arterial Blood HCO3 24 mmol/L (21-28) Arterial Blood Base Excess -7 mmol/L (-3-3) L Oxyhemoglobin 86.5 % Methemoglobin 0.6 % (0.0-1.9) Carbon Monoxide, Quantitative 0.7 % (0.0-1.9) FiO2 65 Lactic Acid Level 6.1 mmol/L (0.4-2.0) *H Test 07/30/19 22:25 07/31/19 02:50 07/31/19 05:30 07/31/19 06:40 O2 Saturation 93 % (92-99) Arterial Blood pH 7.19 (7.35-7.45) *L Arterial Blood pCO2 at Patient Temp 58 mmHg (35-46) H Arterial Blood pO2 at Patient Temp 75 mmHg (65-108) Arterial Blood HCO3 22 mmol/L (21-28) FiO2 65 Troponin I Quantitative 0.118 ng/mL (0.000-0.055) White Blood Count 16.5 x10^3/uL (4.0-11.0) H Red Blood Count 4.35 x10^6/uL (4.30-5.70) Hemoglobin 13.8 g/dL (13.0-17.5) Hematocrit 41.7 % (39.0-53.0) Mean Corpuscular Volume 96 fL (79-100) Mean Corpuscular Hemoglobin 32 pg (25-35) Mean Corpuscular Hemoglobin Concent 33 g/dL (31-37) Red Cell Distribution Width 13.8 % (11.5-14.5) Platelet Count 301 x10^3/uL (140-400) Neutrophils (%) (Auto) 92 % (31-73) H Lymphocytes (%) (Auto) 7 % (24-48) L Monocytes (%) (Auto) 1 % (0-9) Eosinophils (%) (Auto) 0 % (0-3) Basophils (%) (Auto) 0 % (0-3) Neutrophils # (Auto) 15.2 x10^3/uL (1.8-7.7) H Lymphocytes # (Auto) 1.2 x10^3/uL (1.0-4.8) Monocytes # (Auto) 0.1 x10^3/uL (0.0-1.1) Eosinophils # (Auto) 0.0 x10^3/uL (0.0-0.7) Basophils # (Auto) 0.0 x10^3/uL (0.0-0.2) Sodium Level 138 mmol/L (136-145) Potassium Level 3.4 mmol/L (3.5-5.1) L Chloride Level 103 mmol/L (98-107) Carbon Dioxide Level 23 mmol/L (21-32) Anion Gap 12 (6-14) Blood Urea Nitrogen 40 mg/dL (8-26) H Creatinine 1.7 mg/dL (0.7-1.3) H Estimated GFR (Cockcroft-Gault) 40.5 BUN/Creatinine Ratio 24 (6-20) H Glucose Level 98 mg/dL (70-99) Calcium Level 7.6 mg/dL (8.5-10.1) L Total Bilirubin 2.2 mg/dL (0.2-1.0) H Aspartate Amino Transferase (AST) 86 U/L (15-37) H Alanine Aminotransferase (ALT) 27 U/L (16-63) Alkaline Phosphatase 55 U/L (46-116) Total Protein 5.5 g/dL (6.4-8.2) L Albumin 1.6 g/dL (3.4-5.0) L Albumin/Globulin Ratio 0.4 (1.0-1.7) L Heparin Anti-Xa Act, Unfractionated < 0.10 IU/mL (0.30-0.70) L Test 07/31/19 08:20 07/31/19 08:45 Lactic Acid Level 3.7 mmol/L (0.4-2.0) H O2 Saturation 93 % (92-99) Arterial Blood pH 7.39 (7.35-7.45) Arterial Blood pCO2 at Patient Temp 37 mmHg (35-46) Arterial Blood pO2 at Patient Temp 65 mmHg (65-108) Arterial Blood HCO3 22 mmol/L (21-28) Arterial Blood Base Excess -3 mmol/L (-3-3) FiO2 50% Laboratory Tests 07/30/19 17:45 07/31/19 05:30 Laboratory Tests 07/30/19 18:25 07/30/19 21:25 07/31/19 05:30 ASSESSMENT/PLAN ASSESSMENT/PLAN 1. Acute respiratory hypercapnic respiratory failure with Pneumonia, flu and possible COPD 2. Flu A 3. Sepsis with UTI/pneumonia 4. Pneumonia 5. SONIA 6. AFIB RVR: chronic per report. rate goal <110 7. Mildly elevated troponin: peaked at 0.11. Demand mediated with culprits above 8. Metabolic/hypoxic encephalopathy 9. Noncompliance: limited financial constraints. Does not take any routine meds. 10. Severe PAD: ischemia to right foot with grayish 4th toe possibly cardioemboli. Vascular surgery has been consulted 11. Noncompliance: no noted home medications 12. Homelessness 13. Tobaccoism Recommendations 1. Vent per pulmonary. ID consulted 2. Will obtain baseline TTE. Continue cardizem drip and titrate per trend, heparin drip. Dig total given at 500 mcg IV. 3. SS consult. per staff recently lost his home and living in car. 4. Supportive care. VANNA WHITNEY APRN Jul 31, 2019 10:44
--- NOTE | 2019-07-31 10:51 | PDOC ---
PULMONARY PROGRESS NOTES Vitals Vital Signs Date Time Temp Pulse Resp B/P (MAP) Pulse Ox O2 Delivery O2 Flow Rate FiO2 07/31/19 10:00 121 20 116/71 (86) 96 Ventilator 07/31/19 08:00 101.2 101.2 07/31/19 01:17 80.0 Labs Laboratory Tests Test 07/30/19 17:45 07/30/19 17:53 07/30/19 18:00 07/30/19 18:12 White Blood Count 10.0 x10^3/uL (4.0-11.0) Red Blood Count 5.12 x10^6/uL (4.30-5.70) Hemoglobin 16.6 g/dL (13.0-17.5) Hematocrit 48.2 % (39.0-53.0) Mean Corpuscular Volume 94 fL (79-100) Mean Corpuscular Hemoglobin 32 pg (25-35) Mean Corpuscular Hemoglobin Concent 34 g/dL (31-37) Red Cell Distribution Width 13.5 % (11.5-14.5) Platelet Count 298 x10^3/uL (140-400) Neutrophils (%) (Auto) 94 % (31-73) Lymphocytes (%) (Auto) 6 % (24-48) Monocytes (%) (Auto) 0 % (0-9) Eosinophils (%) (Auto) 0 % (0-3) Basophils (%) (Auto) 0 % (0-3) Neutrophils # (Auto) 9.4 x10^3/uL (1.8-7.7) Lymphocytes # (Auto) 0.6 x10^3/uL (1.0-4.8) Monocytes # (Auto) 0.0 x10^3/uL (0.0-1.1) Eosinophils # (Auto) 0.0 x10^3/uL (0.0-0.7) Basophils # (Auto) 0.0 x10^3/uL (0.0-0.2) Segmented Neutrophils % 28 % (35-66) Band Neutrophils % 59 % (0-9) Lymphocytes % 9 % (24-48) Atypical Lymphocytes % (Manual) 3 % (0-0) Monocytes % 1 % (0-10) Toxic Granulation Mod Toxic Vacuolation Mod Platelet Estimate Adequate (ADEQUATE) Large Platelets Mod Giant Platelets Occ Lactic Acid Level 6.6 mmol/L (0.4-2.0) O2 Saturation 99 % (92-99) Arterial Blood pH 7.52 (7.35-7.45) Arterial Blood pCO2 at Patient Temp 23 mmHg (35-46) Arterial Blood pO2 at Patient Temp 136 mmHg (65-108) Arterial Blood HCO3 19 mmol/L (21-28) Arterial Blood Base Excess -2 mmol/L (-3-3) FiO2 60 Urine Collection Type Unknown Urine Color Alsen Urine Clarity Cloudy Urine pH 6.0 Urine Specific [place] 1.025 Urine Protein 100 mg/dL (NEG-TRACE) Urine Glucose (UA) Negative mg/dL (NEG) Urine Ketones (Stick) Trace mg/dL (NEG) Urine Blood Small (NEG) Urine Nitrite Positive (NEG) Urine Bilirubin Moderate (NEG) Urine Urobilinogen Dipstick 2.0 mg/dL (0.2 mg/dL) Urine Leukocyte Esterase Small (NEG) Urine RBC Occ /HPF (0-2) Urine WBC 1-4 /HPF (0-4) Urine Squamous Epithelial Cells Mod /LPF Urine Amorphous Sediment Present /HPF Urine Bacteria Few /HPF (0-FEW) Urine Mucus Marked /LPF Influenza Type A Antigen Positive (NEGATIVE) Influenza Type B Antigen Negative (NEGATIVE) Test 07/30/19 18:15 07/30/19 18:25 07/30/19 20:26 07/30/19 21:25 Ammonia 14 mcmol/L (11-34) D-Dimer (Arlette) 2.92 ug/mlFEU (0.00-0.50) Sodium Level 138 mmol/L (136-145) 139 mmol/L (136-145) Potassium Level 3.2 mmol/L (3.5-5.1) 3.6 mmol/L (3.5-5.1) Chloride Level 99 mmol/L (98-107) 102 mmol/L (98-107) Carbon Dioxide Level 23 mmol/L (21-32) 22 mmol/L (21-32) Anion Gap 16 (6-14) 15 (6-14) Blood Urea Nitrogen 34 mg/dL (8-26) 35 mg/dL (8-26) Creatinine 1.0 mg/dL (0.7-1.3) 1.2 mg/dL (0.7-1.3) Estimated GFR (Cockcroft-Gault) 74.8 60.6 BUN/Creatinine Ratio 34 (6-20) 29 (6-20) Glucose Level 89 mg/dL (70-99) 98 mg/dL (70-99) Calcium Level 8.9 mg/dL (8.5-10.1) 8.5 mg/dL (8.5-10.1) Total Bilirubin 2.3 mg/dL (0.2-1.0) 2.4 mg/dL (0.2-1.0) Aspartate Amino Transf (AST/SGOT) 45 U/L (15-37) 49 U/L (15-37) Alanine Aminotransferase (ALT/SGPT) 22 U/L (16-63) 22 U/L (16-63) Alkaline Phosphatase 73 U/L (46-116) 72 U/L (46-116) Troponin I Quantitative 0.041 ng/mL (0.000-0.055) 0.109 ng/mL (0.000-0.055) LE-Vfw-Z-Type Natriuretic Peptide 727 pg/mL (0-124) Total Protein 6.5 g/dL (6.4-8.2) 6.5 g/dL (6.4-8.2) Albumin 2.1 g/dL (3.4-5.0) 2.0 g/dL (3.4-5.0) Albumin/Globulin Ratio 0.5 (1.0-1.7) 0.4 (1.0-1.7) Thyroid Stimulating Hormone (TSH) 0.823 uIU/mL (0.358-3.74) O2 Saturation 88 % (92-99) Arterial Blood pH 7.15 (7.35-7.45) Arterial Blood pH (Temp corrected) 7.12 Arterial Blood pCO2 at Patient Temp 71 mmHg (35-46) Arterial Blood pCO2 (Temp correct) 79 mmHg Arterial Blood pO2 at Patient Temp 67 mmHg (65-108) Arterial Blood pO2 (Temp corrected) 80 mmHg Arterial Blood HCO3 24 mmol/L (21-28) Arterial Blood Base Excess -7 mmol/L (-3-3) Oxyhemoglobin 86.5 % Methemoglobin 0.6 % (0.0-1.9) Carbon Monoxide, Quantitative 0.7 % (0.0-1.9) FiO2 65 Lactic Acid Level 6.1 mmol/L (0.4-2.0) Test 07/30/19 22:25 07/31/19 02:50 07/31/19 05:30 07/31/19 06:40 O2 Saturation 93 % (92-99) Arterial Blood pH 7.19 (7.35-7.45) Arterial Blood pCO2 at Patient Temp 58 mmHg (35-46) Arterial Blood pO2 at Patient Temp 75 mmHg (65-108) Arterial Blood HCO3 22 mmol/L (21-28) FiO2 65 Troponin I Quantitative 0.118 ng/mL (0.000-0.055) White Blood Count 16.5 x10^3/uL (4.0-11.0) Red Blood Count 4.35 x10^6/uL (4.30-5.70) Hemoglobin 13.8 g/dL (13.0-17.5) Hematocrit 41.7 % (39.0-53.0) Mean Corpuscular Volume 96 fL (79-100) Mean Corpuscular Hemoglobin 32 pg (25-35) Mean Corpuscular Hemoglobin Concent 33 g/dL (31-37) Red Cell Distribution Width 13.8 % (11.5-14.5) Platelet Count 301 x10^3/uL (140-400) Neutrophils (%) (Auto) 92 % (31-73) Lymphocytes (%) (Auto) 7 % (24-48) Monocytes (%) (Auto) 1 % (0-9) Eosinophils (%) (Auto) 0 % (0-3) Basophils (%) (Auto) 0 % (0-3) Neutrophils # (Auto) 15.2 x10^3/uL (1.8-7.7) Lymphocytes # (Auto) 1.2 x10^3/uL (1.0-4.8) Monocytes # (Auto) 0.1 x10^3/uL (0.0-1.1) Eosinophils # (Auto) 0.0 x10^3/uL (0.0-0.7) Basophils # (Auto) 0.0 x10^3/uL (0.0-0.2) Sodium Level 138 mmol/L (136-145) Potassium Level 3.4 mmol/L (3.5-5.1) Chloride Level 103 mmol/L (98-107) Carbon Dioxide Level 23 mmol/L (21-32) Anion Gap 12 (6-14) Blood Urea Nitrogen 40 mg/dL (8-26) Creatinine 1.7 mg/dL (0.7-1.3) Estimated GFR (Cockcroft-Gault) 40.5 BUN/Creatinine Ratio 24 (6-20) Glucose Level 98 mg/dL (70-99) Calcium Level 7.6 mg/dL (8.5-10.1) Total Bilirubin 2.2 mg/dL (0.2-1.0) Aspartate Amino Transf (AST/SGOT) 86 U/L (15-37) Alanine Aminotransferase (ALT/SGPT) 27 U/L (16-63) Alkaline Phosphatase 55 U/L (46-116) Creatine Kinase 96 U/L (39-308) Total Protein 5.5 g/dL (6.4-8.2) Albumin 1.6 g/dL (3.4-5.0) Albumin/Globulin Ratio 0.4 (1.0-1.7) Heparin Anti-Xa Act, Unfractionated < 0.10 IU/mL (0.30-0.70) Test 07/31/19 08:20 07/31/19 08:45 Lactic Acid Level 3.7 mmol/L (0.4-2.0) O2 Saturation 93 % (92-99) Arterial Blood pH 7.39 (7.35-7.45) Arterial Blood pCO2 at Patient Temp 37 mmHg (35-46) Arterial Blood pO2 at Patient Temp 65 mmHg (65-108) Arterial Blood HCO3 22 mmol/L (21-28) Arterial Blood Base Excess -3 mmol/L (-3-3) FiO2 50% Laboratory Tests Test 07/30/19 17:45 07/30/19 17:53 07/30/19 18:00 07/30/19 18:12 White Blood Count 10.0 x10^3/uL (4.0-11.0) Red Blood Count 5.12 x10^6/uL (4.30-5.70) Hemoglobin 16.6 g/dL (13.0-17.5) Hematocrit 48.2 % (39.0-53.0) Mean Corpuscular Volume 94 fL (79-100) Mean Corpuscular Hemoglobin 32 pg (25-35) Mean Corpuscular Hemoglobin Concent 34 g/dL (31-37) Red Cell Distribution Width 13.5 % (11.5-14.5) Platelet Count 298 x10^3/uL (140-400) Neutrophils (%) (Auto) 94 % (31-73) Lymphocytes (%) (Auto) 6 % (24-48) Monocytes (%) (Auto) 0 % (0-9) Eosinophils (%) (Auto) 0 % (0-3) Basophils (%) (Auto) 0 % (0-3) Neutrophils # (Auto) 9.4 x10^3/uL (1.8-7.7) Lymphocytes # (Auto) 0.6 x10^3/uL (1.0-4.8) Monocytes # (Auto) 0.0 x10^3/uL (0.0-1.1) Eosinophils # (Auto) 0.0 x10^3/uL (0.0-0.7) Basophils # (Auto) 0.0 x10^3/uL (0.0-0.2) Segmented Neutrophils % 28 % (35-66) Band Neutrophils % 59 % (0-9) Lymphocytes % 9 % (24-48) Atypical Lymphocytes % (Manual) 3 % (0-0) Monocytes % 1 % (0-10) Toxic Granulation Mod Toxic Vacuolation Mod Platelet Estimate Adequate (ADEQUATE) Large Platelets Mod Giant Platelets Occ Lactic Acid Level 6.6 mmol/L (0.4-2.0) O2 Saturation 99 % (92-99) Arterial Blood pH 7.52 (7.35-7.45) Arterial Blood pCO2 at Patient Temp 23 mmHg (35-46) Arterial Blood pO2 at Patient Temp 136 mmHg (65-108) Arterial Blood HCO3 19 mmol/L (21-28) Arterial Blood Base Excess -2 mmol/L (-3-3) FiO2 60 Urine Collection Type Unknown Urine Color Alsen Urine Clarity Cloudy Urine pH 6.0 Urine Specific [place] 1.025 Urine Protein 100 mg/dL (NEG-TRACE) Urine Glucose (UA) Negative mg/dL (NEG) Urine Ketones (Stick) Trace mg/dL (NEG) Urine Blood Small (NEG) Urine Nitrite Positive (NEG) Urine Bilirubin Moderate (NEG) Urine Urobilinogen Dipstick 2.0 mg/dL (0.2 mg/dL) Urine Leukocyte Esterase Small (NEG) Urine RBC Occ /HPF (0-2) Urine WBC 1-4 /HPF (0-4) Urine Squamous Epithelial Cells Mod /LPF Urine Amorphous Sediment Present /HPF Urine Bacteria Few /HPF (0-FEW) Urine Mucus Marked /LPF Influenza Type A Antigen Positive (NEGATIVE) Influenza Type B Antigen Negative (NEGATIVE) Test 07/30/19 18:15 07/30/19 18:25 07/30/19 20:26 07/30/19 21:25 Ammonia 14 mcmol/L (11-34) D-Dimer (Arlette) 2.92 ug/mlFEU (0.00-0.50) Sodium Level 138 mmol/L (136-145) 139 mmol/L (136-145) Potassium Level 3.2 mmol/L (3.5-5.1) 3.6 mmol/L (3.5-5.1) Chloride Level 99 mmol/L (98-107) 102 mmol/L (98-107) Carbon Dioxide Level 23 mmol/L (21-32) 22 mmol/L (21-32) Anion Gap 16 (6-14) 15 (6-14) Blood Urea Nitrogen 34 mg/dL (8-26) 35 mg/dL (8-26) Creatinine 1.0 mg/dL (0.7-1.3) 1.2 mg/dL (0.7-1.3) Estimated GFR (Cockcroft-Gault) 74.8 60.6 BUN/Creatinine Ratio 34 (6-20) 29 (6-20) Glucose Level 89 mg/dL (70-99) 98 mg/dL (70-99) Calcium Level 8.9 mg/dL (8.5-10.1) 8.5 mg/dL (8.5-10.1) Total Bilirubin 2.3 mg/dL (0.2-1.0) 2.4 mg/dL (0.2-1.0) Aspartate Amino Transf (AST/SGOT) 45 U/L (15-37) 49 U/L (15-37) Alanine Aminotransferase (ALT/SGPT) 22 U/L (16-63) 22 U/L (16-63) Alkaline Phosphatase 73 U/L (46-116) 72 U/L (46-116) Troponin I Quantitative 0.041 ng/mL (0.000-0.055) 0.109 ng/mL (0.000-0.055) KB-Vfl-T-Type Natriuretic Peptide 727 pg/mL (0-124) Total Protein 6.5 g/dL (6.4-8.2) 6.5 g/dL (6.4-8.2) Albumin 2.1 g/dL (3.4-5.0) 2.0 g/dL (3.4-5.0) Albumin/Globulin Ratio 0.5 (1.0-1.7) 0.4 (1.0-1.7) Thyroid Stimulating Hormone (TSH) 0.823 uIU/mL (0.358-3.74) O2 Saturation 88 % (92-99) Arterial Blood pH 7.15 (7.35-7.45) Arterial Blood pH (Temp corrected) 7.12 Arterial Blood pCO2 at Patient Temp 71 mmHg (35-46) Arterial Blood pCO2 (Temp correct) 79 mmHg Arterial Blood pO2 at Patient Temp 67 mmHg (65-108) Arterial Blood pO2 (Temp corrected) 80 mmHg Arterial Blood HCO3 24 mmol/L (21-28) Arterial Blood Base Excess -7 mmol/L (-3-3) Oxyhemoglobin 86.5 % Methemoglobin 0.6 % (0.0-1.9) Carbon Monoxide, Quantitative 0.7 % (0.0-1.9) FiO2 65 Lactic Acid Level 6.1 mmol/L (0.4-2.0) Test 07/30/19 22:25 07/31/19 02:50 07/31/19 05:30 07/31/19 06:40 O2 Saturation 93 % (92-99) Arterial Blood pH 7.19 (7.35-7.45) Arterial Blood pCO2 at Patient Temp 58 mmHg (35-46) Arterial Blood pO2 at Patient Temp 75 mmHg (65-108) Arterial Blood HCO3 22 mmol/L (21-28) FiO2 65 Troponin I Quantitative 0.118 ng/mL (0.000-0.055) White Blood Count 16.5 x10^3/uL (4.0-11.0) Red Blood Count 4.35 x10^6/uL (4.30-5.70) Hemoglobin 13.8 g/dL (13.0-17.5) Hematocrit 41.7 % (39.0-53.0) Mean Corpuscular Volume 96 fL (79-100) Mean Corpuscular Hemoglobin 32 pg (25-35) Mean Corpuscular Hemoglobin Concent 33 g/dL (31-37) Red Cell Distribution Width 13.8 % (11.5-14.5) Platelet Count 301 x10^3/uL (140-400) Neutrophils (%) (Auto) 92 % (31-73) Lymphocytes (%) (Auto) 7 % (24-48) Monocytes (%) (Auto) 1 % (0-9) Eosinophils (%) (Auto) 0 % (0-3) Basophils (%) (Auto) 0 % (0-3) Neutrophils # (Auto) 15.2 x10^3/uL (1.8-7.7) Lymphocytes # (Auto) 1.2 x10^3/uL (1.0-4.8) Monocytes # (Auto) 0.1 x10^3/uL (0.0-1.1) Eosinophils # (Auto) 0.0 x10^3/uL (0.0-0.7) Basophils # (Auto) 0.0 x10^3/uL (0.0-0.2) Sodium Level 138 mmol/L (136-145) Potassium Level 3.4 mmol/L (3.5-5.1) Chloride Level 103 mmol/L (98-107) Carbon Dioxide Level 23 mmol/L (21-32) Anion Gap 12 (6-14) Blood Urea Nitrogen 40 mg/dL (8-26) Creatinine 1.7 mg/dL (0.7-1.3) Estimated GFR (Cockcroft-Gault) 40.5 BUN/Creatinine Ratio 24 (6-20) Glucose Level 98 mg/dL (70-99) Calcium Level 7.6 mg/dL (8.5-10.1) Total Bilirubin 2.2 mg/dL (0.2-1.0) Aspartate Amino Transf (AST/SGOT) 86 U/L (15-37) Alanine Aminotransferase (ALT/SGPT) 27 U/L (16-63) Alkaline Phosphatase 55 U/L (46-116) Creatine Kinase 96 U/L (39-308) Total Protein 5.5 g/dL (6.4-8.2) Albumin 1.6 g/dL (3.4-5.0) Albumin/Globulin Ratio 0.4 (1.0-1.7) Heparin Anti-Xa Act, Unfractionated < 0.10 IU/mL (0.30-0.70) Test 07/31/19 08:20 07/31/19 08:45 Lactic Acid Level 3.7 mmol/L (0.4-2.0) O2 Saturation 93 % (92-99) Arterial Blood pH 7.39 (7.35-7.45) Arterial Blood pCO2 at Patient Temp 37 mmHg (35-46) Arterial Blood pO2 at Patient Temp 65 mmHg (65-108) Arterial Blood HCO3 22 mmol/L (21-28) Arterial Blood Base Excess -3 mmol/L (-3-3) FiO2 50% Medications Active Scripts Medications Dose Route/Sig Max Daily Dose Days Date Category Proair Hfa (Albuterol Sulfate) 8.5 Gm Hfa.aer.ad 2 Puff IH PRN Q4-6HRS PRN 21 07/25/19 Rx Tessalon Perle (Benzonatate) 100 Mg Capsule 1 Cap PO TID 07/25/19 Rx Prednisone 50 Mg Tablet 1 Tab PO DAILY 07/25/19 Rx Cyclobenzaprine Hcl 5 Mg Tablet 1 Tab PO TID 03/21/17 Rx Ibuprofen 800 Mg Tablet 800 Mg PO Q6-8HRS 03/21/17 Rx Zofran Odt (Ondansetron) 4 Mg Tab.rapdis 1 Tab SL Q8HRS 01/07/17 Rx Ultram (Tramadol Hcl) 50 Mg Tablet 1 Tab PO Q6HRS 01/29/16 Rx Impression . FULL NOTE DICTATED THANKS ACUTE RESP FAILURE SEPSIS INFLUENZA PVD AGREE WITH CURRENT RX AISHA ARIZA MD Jul 31, 2019 10:51
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
[2019-07-31] MEDS: dilTIAZem INJ 125 MG in IV NORMAL SALINE 100ML 100 ML IV PRN (12:40)
--- NOTE | 2019-07-31 13:11 | CARD ---
MR#: [id number] Date of Study: 07/31/2019 Ordering Physician: YURI CHAWLA, Referring Physician: YURI CHAWLA, Tech: Yessica De Guzman APPROVED REPORT EXAM: Two-dimensional and M-mode echocardiogram with Doppler and color Doppler. Other Information Quality : AverageHR: 121bpm Technically limited study due to rapid heart rate INDICATION Arrhythmia Atrial Fibrillation RVR RISK FACTORS Smoking 2D DIMENSIONS RVDd3.0 (2.9-3.5cm)Left Atrium(2D)2.8 (1.6-4.0cm) IVSd1.1 (0.7-1.1cm)Aortic Root(2D)3.5 (2.0-3.7cm) LVDd3.8 (3.9-5.9cm)LVOT Diameter2.2 (1.8-2.4cm) PWd1.1 (0.7-1.1cm)LVDs2.6 (2.5-4.0cm) FS (%) 32.9 %SV38.7 ml LVEF(%)62.1 (>50%) Aortic Valve AoV Peak Junaid.153.4cm/sAoV VTI26.9cm AO Peak GR.9.4mmHgLVOT VTI 20.91cm AO Mean GR.11mmHg Mitral Valve MV E Jvgerpgf25.3cm/sMV DECEL [id number] MV A Heegynle25.3cm/sE/A Ratio1.2 TDI Lateral E' P. V8.30cm/sMedial E' P. V9.40cm/s E/Lateral E'7.5E/Medial E'6.6 Tricuspid Valve TR P. Hwdypmvv539ki/sRAP LEMLNLYV8lbMf TR Peak Gr.90ucHcABPR94zbDb Pulmonary Vein S1 Biqnmalp77.5cm/sS2 Ixuqxeoc77.05cm/s D2 Tsuujyqx11.0cm/sPVa okiwvaju62lgls LEFT VENTRICLE The left ventricle is normal size. There is mild concentric left ventricular hypertrophy. The left ve ntricular systolic function is normal. The ejection fraction is 55-60%. Wall motion consistent with c onduction abnormality. RIGHT VENTRICLE The right ventricle is normal size. There is normal right ventricular wall thickness. The right ventr icular systolic function is normal. ATRIA The left atrium is borderline dilated. The right atrium size is normal. The interatrial septum is int act with no evidence for an atrial septal defect or patent foramen ovale as noted on 2-D or Doppler i maging. AORTIC VALVE The aortic valve is not well visualized. Doppler and Color Flow revealed no significant aortic regurg itation. There is no significant aortic valvular stenosis. MITRAL VALVE The mitral valve is normal in structure and function. There is no evidence of mitral valve prolapse. There is no mitral valve stenosis. Doppler and Color-flow revealed trace mitral regurgitation. TRICUSPID VALVE The tricuspid valve is normal in structure and function. Doppler and Color Flow revealed trace tricus pid regurgitation with an estimated PAP of 27 mmHg. There is no tricuspid valve stenosis. PULMONIC VALVE The pulmonic valve is not well visualized. Doppler and Color Flow revealed no pulmonic valvular regur gitation. GREAT VESSELS The aortic root is normal in size. The IVC is normal in size and collapses >50% with inspiration. PERICARDIAL EFFUSION There is no evidence of significant pericardial effusion. Critical Notification Critical Value: No <Conclusion> The left ventricular systolic function is normal. The ejection fraction is 55-60%. Trace mitral regurgitation. Trace tricuspid regurgitation with an estimated PAP of 27 mmHg. There is no evidence of significant pericardial effusion. Signed by : Leobardo Kim, Electronically Approved : 07/31/2019 13:10:54
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
[2019-07-31] MEDS: ALBUMIN HUMAN 25% 100 ML IV SCH ×2 (14:22→21:16)
--- NOTE | 2019-07-31 14:31 | NUR ---
SS following for discharge planning. SS reviewed pt chart. Pt is from home and is currently on the vent. SS will continue to follow for discharge planning.
[2019-07-31] MEDS ORDERED: IV NORMAL SALINE 1000ML BAG 2,340 ML IV SCH (14:48)
[2019-07-31] MEDS ORDERED: BISACODYL 10 MG SUPP.RECT. PR PRN (15:00)
[2019-07-31] MEDS ORDERED: 0.9 % SODIUM CHLORIDE 10 ML DISP.SYRIN. IV PRN (15:00)
[2019-07-31] MEDS ORDERED: IV NORMAL SALINE 500ML BAG 500 ML IV PRN (15:00)
[2019-07-31] MEDS ORDERED: ONDANSETRON PF 4 MG/2 ML VIAL. IV PRN (15:00)
[2019-07-31] MEDS ORDERED: PROCHLORPERAZINE 25 MG SUPP.RECT. PR PRN (15:00)
[2019-07-31 15:17] LABS: PROTHROMBIN TIME PATIENT 14.7 SEC (11.7-14.0)
[2019-07-31 15:34] LABS: D-DIMER 3.94 ug/mlFEU (0.00-0.50)
[2019-07-31] MEDS ORDERED: VITS A & D/LANOLIN TOPICAL OINTMENT 42GM TUBE. TP PRN (16:45)
--- NOTE | 2019-07-31 17:10 | NUR ---
Wound Care: Patient seen per wound care consult. See wound assessment. Tube feeding placed on hold. 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 Wound cleansed, assessed, measured, and pictured. Recommendations for Iodoflex to wound bed, cover with gauze and kerlix. Patient has bilateral rooke boots. Vascular has been consulted. No other wounds noted upon complete head to toe assessment. Dressing change instructions left in room as well as extra Iodoflex. Bed lowered and HOB elevated above 30 degrees, tube feeding turned back on. patient on ICU bed at this time. patient on vent at this time. Will follow patient regarding wound care.
[2019-07-31] MEDS: THIAMINE INJ 100 MG in IV DEXTROSE 5% 50 ML IV SCH (17:18)
--- NOTE | 2019-07-31 19:41 | CONS ---
DATE OF CONSULTATION: 07/31/2019 CHIEF COMPLAINT: Cyanosis of his feet. HISTORY OF PRESENT ILLNESS: The patient is a 64-year-old male who has been homeless and living in his car, presented to the hospital very confused after he was found driving around in circles. The patient was hypoxic with respiratory failure and intubated. He was also found to have tachycardia and was in atrial fibrillation. It was noted that his feet were fairly cyanotic with severe mottling of the right foot. Vascular Surgery was consulted. An arterial duplex scan of the right leg shows atherosclerotic disease without significant stenosis and patency of his vessels. He is currently intubated and cannot give us a history. REVIEW OF SYSTEMS: Unobtainable because he is intubated. PAST MEDICAL HISTORY: There is no past medical history listed and he has been homeless without medical care. PAST SURGICAL HISTORY: None that we know of. ALLERGIES: INCLUDE CODEINE. MEDICATIONS: Please see his full MAR. PHYSICAL EXAMINATION: GENERAL: The patient is intubated and sedated on the ventilator. VITAL SIGNS: His blood pressure is 102/62, pulse is 117. He is febrile with a temperature of 101.2. NECK: Supple. HEART: Tachycardic without murmurs. LUNGS: He has bilateral breath sounds to auscultation. ABDOMEN: Soft, nondistended. EXTREMITIES: His bilateral lower extremities have palpable femoral pulses in his feet. He has strong dopplerable dorsalis pedis and posterior tibial pulses in his feet. He has no significant swelling. His right foot is very mottled and cyanotic and appears that he has had ischemia or mal-perfusion at some point; however, the circulation is definitely intact and strong at this point. He has signs of early gangrene developing in his toes. His left forefoot has some areas of cyanosis and mild mottling of the skin with no sandy gangrene. His calves are soft without significant swelling. His bilateral upper extremities are warm without edema. LABORATORY STUDIES: His white blood count is 16, hemoglobin is 13. His CK level is normal at 96. His creatinine is 1.7. IMPRESSION: 1. Ischemic skin changes to his right and left foot, worse in the right foot compared to the left with early gangrene despite adequate circulation. 2. Respiratory failure. 3. Confusion at presentation and he has been homeless with no medical care. PLAN: The patient has ischemic type changes in his right and left foot. The right foot is significantly worse than the left. There is mottling, demarcation and signs of early gangrene in his right foot. His left foot has mottling, but no sandy gangrene at this point. He does have good circulation in his legs with dopplerable pulses in both of his feet and duplex scan of the right leg shows patency of his vessels. No arterial intervention is needed at this point. I do recommend continuing his heparin drip and warming his feet and lower legs. He may end up requiring amputation of his feet in the future, but no urgent surgical intervention is needed at this point. We will continue to monitor. CYNTHIA DE ANDA MD DR: JAKOB/darling JOB#: [id number] / [id number]
[2019-07-31] MEDS ORDERED: FAMOTIDINE 20 MG/2 ML VIAL IVP SCH (21:00)
[2019-07-31] MEDS: FAMOTIDINE 20 MG/2 ML VIAL IVP SCH (21:16)
[2019-08-01] VITALS (24 sets, daily range): BP systolic 108–131; BP diastolic 52–68
[2019-08-01] MEDS: IPRATRPIUM/ALBUTEROL 0.5/2.5MG 3 ML NEBU. NEB SCH ×6 (00:33→20:00)
[2019-08-01] MEDS: dilTIAZem INJ 125 MG in IV NORMAL SALINE 100ML 100 ML IV PRN (03:03)
[2019-08-01] MEDS: MIDAZOLAM HCL 50 MG in IV NORMAL SALINE 50ML 50 ML IV PRN ×2 (03:04→14:09)
--- NOTE | 2019-08-01 05:38 | RAD ---
Single view chest dated 08/01/2019. Comparison made to 07/30/2019. Clinical data indication: Intubation. FINDINGS: Single upright portable exam performed. Endotracheal tube, nasogastric tube and right internal jugular catheter is in place, unchanged. Heart and mediastinal contours are stable. There is patchy airspace disease at the mid and lower lung zone on the right, unchanged. There is also patchy perihilar opacity in the left, stable. No new infiltrate or pleural effusion. No pneumothorax. IMPRESSION: No significant interval change compared to 07/30/2019. Electronically signed by: Robert Meyer MD (08/01/2019 5:35 AM) [id number]
[2019-08-01 05:43] LABS: BASO % 0 % (0-3); EOS # 0.1 x10^3/uL (0.0-0.7); EOS % 1 % (0-3); HEMATOCRIT 35.2 % (39.0-53.0); HEMOGLOBIN 11.8 g/dL (13.0-17.5); LYMPH # 1.2 x10^3/uL (1.0-4.8); LYMPH % 8 % (24-48); MEAN CORPUSCULAR HEMOGLOBIN 32 pg (25-35); MEAN CORPUSCULAR HGB CONC 34 g/dL (31-37); MEAN CORPUSCULAR VOLUME 96 fL (79-100); MONO # 0.1 x10^3/uL (0.0-1.1); MONO % 1 % (0-9); NEUT # 13.6 x10^3/uL (1.8-7.7); NEUT % 91 % (31-73); PLATELET COUNT 277 x10^3/uL (140-400); RED BLOOD COUNT 3.68 x10^6/uL (4.30-5.70); RED CELL DISTRIBUTION WIDTH 13.9 % (11.5-14.5)
[2019-08-01 05:50] LABS: ALBUMIN 2.1 g/dL (3.4-5.0); ALBUMIN/GLOBULIN RATIO 0.8 (1.0-1.7); CALCIUM 7.7 mg/dL (8.5-10.1); CREATININE 3.4 mg/dL (0.7-1.3); GFR 18.2; POTASSIUM 3.5 mmol/L (3.5-5.1); TOTAL BILIRUBIN 2.1 mg/dL (0.2-1.0); TOTAL PROTEIN 4.9 g/dL (6.4-8.2)
[2019-08-01 07:18] LABS: BASE EXCESS ABG -3 mmol/L (-3-3); HCO3 ABG 21 mmol/L (21-28); PCO2 ABG 35 mmHg (35-46); PO2 ABG 101 mmHg (65-108); SAT O2 ABG 97 % (92-99)
[2019-08-01 07:20] LABS: FIO2 ABG 50%
[2019-08-01] MEDS: MICAFUNGIN 100 MG in IV DEXTROSE 5% 100ML 100 ML IV SCH (07:23)
--- NOTE | 2019-08-01 08:05 | PDOC ---
PULMONARY PROGRESS NOTES Subjective SEDATED ON AC MODE IV HEPARIN IV CARDIZEM Vitals Vital Signs Date Time Temp Pulse Resp B/P (MAP) Pulse Ox O2 Delivery O2 Flow Rate FiO2 08/01/19 07:07 97 Ventilator 08/01/19 07:00 109 16 110/56 (74) 08/01/19 04:00 101.3 101.3 Lungs: Crackles Cardiovascular: S1, S2 Abdomen: Soft Extremities: Other (PVD) Skin: Warm Labs Laboratory Tests Test 07/30/19 17:45 07/30/19 17:53 07/30/19 18:00 07/30/19 18:12 White Blood Count 10.0 x10^3/uL (4.0-11.0) Red Blood Count 5.12 x10^6/uL (4.30-5.70) Hemoglobin 16.6 g/dL (13.0-17.5) Hematocrit 48.2 % (39.0-53.0) Mean Corpuscular Volume 94 fL (79-100) Mean Corpuscular Hemoglobin 32 pg (25-35) Mean Corpuscular Hemoglobin Concent 34 g/dL (31-37) Red Cell Distribution Width 13.5 % (11.5-14.5) Platelet Count 298 x10^3/uL (140-400) Neutrophils (%) (Auto) 94 % (31-73) Lymphocytes (%) (Auto) 6 % (24-48) Monocytes (%) (Auto) 0 % (0-9) Eosinophils (%) (Auto) 0 % (0-3) Basophils (%) (Auto) 0 % (0-3) Neutrophils # (Auto) 9.4 x10^3/uL (1.8-7.7) Lymphocytes # (Auto) 0.6 x10^3/uL (1.0-4.8) Monocytes # (Auto) 0.0 x10^3/uL (0.0-1.1) Eosinophils # (Auto) 0.0 x10^3/uL (0.0-0.7) Basophils # (Auto) 0.0 x10^3/uL (0.0-0.2) Segmented Neutrophils % 28 % (35-66) Band Neutrophils % 59 % (0-9) Lymphocytes % 9 % (24-48) Atypical Lymphocytes % (Manual) 3 % (0-0) Monocytes % 1 % (0-10) Toxic Granulation Mod Toxic Vacuolation Mod Platelet Estimate Adequate (ADEQUATE) Large Platelets Mod Giant Platelets Occ Lactic Acid Level 6.6 mmol/L (0.4-2.0) O2 Saturation 99 % (92-99) Arterial Blood pH 7.52 (7.35-7.45) Arterial Blood pCO2 at Patient Temp 23 mmHg (35-46) Arterial Blood pO2 at Patient Temp 136 mmHg (65-108) Arterial Blood HCO3 19 mmol/L (21-28) Arterial Blood Base Excess -2 mmol/L (-3-3) FiO2 60 Urine Collection Type Unknown Urine Color [place] Urine Clarity Cloudy Urine pH 6.0 Urine Specific [place] 1.025 Urine Protein 100 mg/dL (NEG-TRACE) Urine Glucose (UA) Negative mg/dL (NEG) Urine Ketones (Stick) Trace mg/dL (NEG) Urine Blood Small (NEG) Urine Nitrite Positive (NEG) Urine Bilirubin Moderate (NEG) Urine Urobilinogen Dipstick 2.0 mg/dL (0.2 mg/dL) Urine Leukocyte Esterase Small (NEG) Urine RBC Occ /HPF (0-2) Urine WBC 1-4 /HPF (0-4) Urine Squamous Epithelial Cells Mod /LPF Urine Amorphous Sediment Present /HPF Urine Bacteria Few /HPF (0-FEW) Urine Mucus Marked /LPF Influenza Type A Antigen Positive (NEGATIVE) Influenza Type B Antigen Negative (NEGATIVE) Test 07/30/19 18:15 07/30/19 18:25 07/30/19 20:26 07/30/19 21:25 Ammonia 14 mcmol/L (11-34) D-Dimer (Arlette) 2.92 ug/mlFEU (0.00-0.50) Sodium Level 138 mmol/L (136-145) 139 mmol/L (136-145) Potassium Level 3.2 mmol/L (3.5-5.1) 3.6 mmol/L (3.5-5.1) Chloride Level 99 mmol/L (98-107) 102 mmol/L (98-107) Carbon Dioxide Level 23 mmol/L (21-32) 22 mmol/L (21-32) Anion Gap 16 (6-14) 15 (6-14) Blood Urea Nitrogen 34 mg/dL (8-26) 35 mg/dL (8-26) Creatinine 1.0 mg/dL (0.7-1.3) 1.2 mg/dL (0.7-1.3) Estimated GFR (Cockcroft-Gault) 74.8 60.6 BUN/Creatinine Ratio 34 (6-20) 29 (6-20) Glucose Level 89 mg/dL (70-99) 98 mg/dL (70-99) Calcium Level 8.9 mg/dL (8.5-10.1) 8.5 mg/dL (8.5-10.1) Total Bilirubin 2.3 mg/dL (0.2-1.0) 2.4 mg/dL (0.2-1.0) Aspartate Amino Transf (AST/SGOT) 45 U/L (15-37) 49 U/L (15-37) Alanine Aminotransferase (ALT/SGPT) 22 U/L (16-63) 22 U/L (16-63) Alkaline Phosphatase 73 U/L (46-116) 72 U/L (46-116) Troponin I Quantitative 0.041 ng/mL (0.000-0.055) 0.109 ng/mL (0.000-0.055) HI-Xmw-G-Type Natriuretic Peptide 727 pg/mL (0-124) Total Protein 6.5 g/dL (6.4-8.2) 6.5 g/dL (6.4-8.2) Albumin 2.1 g/dL (3.4-5.0) 2.0 g/dL (3.4-5.0) Albumin/Globulin Ratio 0.5 (1.0-1.7) 0.4 (1.0-1.7) Thyroid Stimulating Hormone (TSH) 0.823 uIU/mL (0.358-3.74) O2 Saturation 88 % (92-99) Arterial Blood pH 7.15 (7.35-7.45) Arterial Blood pH (Temp corrected) 7.12 Arterial Blood pCO2 at Patient Temp 71 mmHg (35-46) Arterial Blood pCO2 (Temp correct) 79 mmHg Arterial Blood pO2 at Patient Temp 67 mmHg (65-108) Arterial Blood pO2 (Temp corrected) 80 mmHg Arterial Blood HCO3 24 mmol/L (21-28) Arterial Blood Base Excess -7 mmol/L (-3-3) Oxyhemoglobin 86.5 % Methemoglobin 0.6 % (0.0-1.9) Carbon Monoxide, Quantitative 0.7 % (0.0-1.9) FiO2 65 Lactic Acid Level 6.1 mmol/L (0.4-2.0) Test 07/30/19 22:25 07/31/19 02:50 07/31/19 05:30 07/31/19 06:40 O2 Saturation 93 % (92-99) Arterial Blood pH 7.19 (7.35-7.45) Arterial Blood pCO2 at Patient Temp 58 mmHg (35-46) Arterial Blood pO2 at Patient Temp 75 mmHg (65-108) Arterial Blood HCO3 22 mmol/L (21-28) FiO2 65 Troponin I Quantitative 0.118 ng/mL (0.000-0.055) White Blood Count 16.5 x10^3/uL (4.0-11.0) Red Blood Count 4.35 x10^6/uL (4.30-5.70) Hemoglobin 13.8 g/dL (13.0-17.5) Hematocrit 41.7 % (39.0-53.0) Mean Corpuscular Volume 96 fL (79-100) Mean Corpuscular Hemoglobin 32 pg (25-35) Mean Corpuscular Hemoglobin Concent 33 g/dL (31-37) Red Cell Distribution Width 13.8 % (11.5-14.5) Platelet Count 301 x10^3/uL (140-400) Neutrophils (%) (Auto) 92 % (31-73) Lymphocytes (%) (Auto) 7 % (24-48) Monocytes (%) (Auto) 1 % (0-9) Eosinophils (%) (Auto) 0 % (0-3) Basophils (%) (Auto) 0 % (0-3) Neutrophils # (Auto) 15.2 x10^3/uL (1.8-7.7) Lymphocytes # (Auto) 1.2 x10^3/uL (1.0-4.8) Monocytes # (Auto) 0.1 x10^3/uL (0.0-1.1) Eosinophils # (Auto) 0.0 x10^3/uL (0.0-0.7) Basophils # (Auto) 0.0 x10^3/uL (0.0-0.2) Sodium Level 138 mmol/L (136-145) Potassium Level 3.4 mmol/L (3.5-5.1) Chloride Level 103 mmol/L (98-107) Carbon Dioxide Level 23 mmol/L (21-32) Anion Gap 12 (6-14) Blood Urea Nitrogen 40 mg/dL (8-26) Creatinine 1.7 mg/dL (0.7-1.3) Estimated GFR (Cockcroft-Gault) 40.5 BUN/Creatinine Ratio 24 (6-20) Glucose Level 98 mg/dL (70-99) Calcium Level 7.6 mg/dL (8.5-10.1) Magnesium Level 2.1 mg/dL (1.8-2.4) Total Bilirubin 2.2 mg/dL (0.2-1.0) Aspartate Amino Transf (AST/SGOT) 86 U/L (15-37) Alanine Aminotransferase (ALT/SGPT) 27 U/L (16-63) Alkaline Phosphatase 55 U/L (46-116) Creatine Kinase 96 U/L (39-308) Total Protein 5.5 g/dL (6.4-8.2) Albumin 1.6 g/dL (3.4-5.0) Albumin/Globulin Ratio 0.4 (1.0-1.7) Procalcitonin 25.67 ng/mL (0.00-0.10) Heparin Anti-Xa Act, Unfractionated < 0.10 IU/mL (0.30-0.70) Test 07/31/19 08:20 07/31/19 08:45 07/31/19 15:00 07/31/19 22:20 Lactic Acid Level 3.7 mmol/L (0.4-2.0) O2 Saturation 93 % (92-99) Arterial Blood pH 7.39 (7.35-7.45) Arterial Blood pCO2 at Patient Temp 37 mmHg (35-46) Arterial Blood pO2 at Patient Temp 65 mmHg (65-108) Arterial Blood HCO3 22 mmol/L (21-28) Arterial Blood Base Excess -3 mmol/L (-3-3) FiO2 50% Prothrombin Time 14.7 SEC (11.7-14.0) Prothromb Time International Ratio 1.2 (0.8-1.1) Activated Partial Thromboplast Time 39 SEC (24-38) Fibrinogen 755 mg/dL (200-440) D-Dimer (Arlette) 3.94 ug/mlFEU (0.00-0.50) Heparin Anti-Xa Act, Unfractionated < 0.10 IU/mL (0.30-0.70) < 0.10 IU/mL (0.30-0.70) Test 08/01/19 05:15 08/01/19 07:15 White Blood Count 15.0 x10^3/uL (4.0-11.0) Red Blood Count 3.68 x10^6/uL (4.30-5.70) Hemoglobin 11.8 g/dL (13.0-17.5) Hematocrit 35.2 % (39.0-53.0) Mean Corpuscular Volume 96 fL (79-100) Mean Corpuscular Hemoglobin 32 pg (25-35) Mean Corpuscular Hemoglobin Concent 34 g/dL (31-37) Red Cell Distribution Width 13.9 % (11.5-14.5) Platelet Count 277 x10^3/uL (140-400) Neutrophils (%) (Auto) 91 % (31-73) Lymphocytes (%) (Auto) 8 % (24-48) Monocytes (%) (Auto) 1 % (0-9) Eosinophils (%) (Auto) 1 % (0-3) Basophils (%) (Auto) 0 % (0-3) Neutrophils # (Auto) 13.6 x10^3/uL (1.8-7.7) Lymphocytes # (Auto) 1.2 x10^3/uL (1.0-4.8) Monocytes # (Auto) 0.1 x10^3/uL (0.0-1.1) Eosinophils # (Auto) 0.1 x10^3/uL (0.0-0.7) Basophils # (Auto) 0.0 x10^3/uL (0.0-0.2) Sodium Level 139 mmol/L (136-145) Potassium Level 3.5 mmol/L (3.5-5.1) Chloride Level 101 mmol/L (98-107) Carbon Dioxide Level 24 mmol/L (21-32) Anion Gap 14 (6-14) Blood Urea Nitrogen 60 mg/dL (8-26) Creatinine 3.4 mg/dL (0.7-1.3) Estimated GFR (Cockcroft-Gault) 18.2 BUN/Creatinine Ratio 18 (6-20) Glucose Level 89 mg/dL (70-99) Calcium Level 7.7 mg/dL (8.5-10.1) Total Bilirubin 2.1 mg/dL (0.2-1.0) Aspartate Amino Transf (AST/SGOT) 79 U/L (15-37) Alanine Aminotransferase (ALT/SGPT) 23 U/L (16-63) Alkaline Phosphatase 61 U/L (46-116) Total Protein 4.9 g/dL (6.4-8.2) Albumin 2.1 g/dL (3.4-5.0) Albumin/Globulin Ratio 0.8 (1.0-1.7) O2 Saturation 97 % (92-99) Arterial Blood pH 7.41 (7.35-7.45) Arterial Blood pCO2 at Patient Temp 35 mmHg (35-46) Arterial Blood pO2 at Patient Temp 101 mmHg (65-108) Arterial Blood HCO3 21 mmol/L (21-28) Arterial Blood Base Excess -3 mmol/L (-3-3) FiO2 50% Laboratory Tests Test 07/31/19 08:20 07/31/19 08:45 07/31/19 15:00 07/31/19 22:20 Lactic Acid Level 3.7 mmol/L (0.4-2.0) O2 Saturation 93 % (92-99) Arterial Blood pH 7.39 (7.35-7.45) Arterial Blood pCO2 at Patient Temp 37 mmHg (35-46) Arterial Blood pO2 at Patient Temp 65 mmHg (65-108) Arterial Blood HCO3 22 mmol/L (21-28) Arterial Blood Base Excess -3 mmol/L (-3-3) FiO2 50% Prothrombin Time 14.7 SEC (11.7-14.0) Prothromb Time International Ratio 1.2 (0.8-1.1) Activated Partial Thromboplast Time 39 SEC (24-38) Fibrinogen 755 mg/dL (200-440) D-Dimer (Arlette) 3.94 ug/mlFEU (0.00-0.50) Heparin Anti-Xa Act, Unfractionated < 0.10 IU/mL (0.30-0.70) < 0.10 IU/mL (0.30-0.70) Test 08/01/19 05:15 08/01/19 07:15 White Blood Count 15.0 x10^3/uL (4.0-11.0) Red Blood Count 3.68 x10^6/uL (4.30-5.70) Hemoglobin 11.8 g/dL (13.0-17.5) Hematocrit 35.2 % (39.0-53.0) Mean Corpuscular Volume 96 fL (79-100) Mean Corpuscular Hemoglobin 32 pg (25-35) Mean Corpuscular Hemoglobin Concent 34 g/dL (31-37) Red Cell Distribution Width 13.9 % (11.5-14.5) Platelet Count 277 x10^3/uL (140-400) Neutrophils (%) (Auto) 91 % (31-73) Lymphocytes (%) (Auto) 8 % (24-48) Monocytes (%) (Auto) 1 % (0-9) Eosinophils (%) (Auto) 1 % (0-3) Basophils (%) (Auto) 0 % (0-3) Neutrophils # (Auto) 13.6 x10^3/uL (1.8-7.7) Lymphocytes # (Auto) 1.2 x10^3/uL (1.0-4.8) Monocytes # (Auto) 0.1 x10^3/uL (0.0-1.1) Eosinophils # (Auto) 0.1 x10^3/uL (0.0-0.7) Basophils # (Auto) 0.0 x10^3/uL (0.0-0.2) Sodium Level 139 mmol/L (136-145) Potassium Level 3.5 mmol/L (3.5-5.1) Chloride Level 101 mmol/L (98-107) Carbon Dioxide Level 24 mmol/L (21-32) Anion Gap 14 (6-14) Blood Urea Nitrogen 60 mg/dL (8-26) Creatinine 3.4 mg/dL (0.7-1.3) Estimated GFR (Cockcroft-Gault) 18.2 BUN/Creatinine Ratio 18 (6-20) Glucose Level 89 mg/dL (70-99) Calcium Level 7.7 mg/dL (8.5-10.1) Total Bilirubin 2.1 mg/dL (0.2-1.0) Aspartate Amino Transf (AST/SGOT) 79 U/L (15-37) Alanine Aminotransferase (ALT/SGPT) 23 U/L (16-63) Alkaline Phosphatase 61 U/L (46-116) Total Protein 4.9 g/dL (6.4-8.2) Albumin 2.1 g/dL (3.4-5.0) Albumin/Globulin Ratio 0.8 (1.0-1.7) O2 Saturation 97 % (92-99) Arterial Blood pH 7.41 (7.35-7.45) Arterial Blood pCO2 at Patient Temp 35 mmHg (35-46) Arterial Blood pO2 at Patient Temp 101 mmHg (65-108) Arterial Blood HCO3 21 mmol/L (21-28) Arterial Blood Base Excess -3 mmol/L (-3-3) FiO2 50% Medications Active Scripts Medications Dose Route/Sig Max Daily Dose Days Date Category Proair Hfa (Albuterol Sulfate) 8.5 Gm Hfa.aer.ad 2 Puff IH PRN Q4-6HRS PRN 21 07/25/19 Rx Tessalon Perle (Benzonatate) 100 Mg Capsule 1 Cap PO TID 07/25/19 Rx Prednisone 50 Mg Tablet 1 Tab PO DAILY 07/25/19 Rx Cyclobenzaprine Hcl 5 Mg Tablet 1 Tab PO TID 03/21/17 Rx Ibuprofen 800 Mg Tablet 800 Mg PO Q6-8HRS 03/21/17 Rx Zofran Odt (Ondansetron) 4 Mg Tab.rapdis 1 Tab SL Q8HRS 01/07/17 Rx Ultram (Tramadol Hcl) 50 Mg Tablet 1 Tab PO Q6HRS 01/29/16 Rx Impression . IMPRESSION: 1. Acute hypoxemic respiratory failure. MULTIFACTORIAL 2. Sepsis. 3. Pneumonia, suspect gram-negative, possibly gram-positive. 4. Influenza A. 5. New onset atrial fibrillation. 6. Peripheral vascular disease with possible peripheral emboli. 7. Metabolic acidosis. 8. Acute renal failure. 9. Severe protein malnutrition, present upon admission. 10. Elevated total bilirubin. DR DE ANDA NOTE IMPRESSION: 1. Ischemic skin changes to his right and left foot, worse in the right foot compared to the left with early gangrene despite adequate circulation. 2. Respiratory failure. 3. Confusion at presentation and he has been homeless with no medical care. PLAN: The patient has ischemic type changes in his right and left foot. The right foot is significantly worse than the left. There is mottling, demarcation and signs of early gangrene in his right foot. His left foot has mottling, but no sandy gangrene at this point. He does have good circulation in his legs with dopplerable pulses in both of his feet and duplex scan of the right leg shows patency of his vessels. No arterial intervention is needed at this point. I do recommend continuing his heparin drip and warming his feet and lower legs. He may end up requiring amputation of his feet in the future, but no urgent surgical intervention is needed at this point. We will continue to monitor. Plan . WILL CONTINUE SUPPORT NO SURGERY PLANNED FOR NOW IV HEPARIN ANTI BX DECREASE MINUTE VENTILATION 07/31 1. We will continue support with mechanical ventilation, adjust minute ventilation to normalize pH. 2. Continue IV antibiotics. 3. Vascular Surgery has been consulted. 4. Follow Cardiology. 4. Echocardiogram pending. 5. Follow up blood cultures. 6. DVT and GI prophylaxis. 7. Nebulized treatments. 8. Control ventricular response in atrial fibrillation. AISHA ARIZA MD Aug 01, 2019 08:05
[2019-08-01] MEDS: MEROPENEM 1 GM in IV NORMAL SALINE 100ML 100 ML IV SCH ×2 (08:30→20:45)
[2019-08-01] MEDS: CHLORHEXIDINE 0.12% 15 ML MOUTHWASH. MM SCH ×2 (08:57→20:46)
[2019-08-01] MEDS: ALBUMIN HUMAN 25% 100 ML IV SCH ×3 (08:57→20:45)
[2019-08-01] MEDS: THIAMINE INJ 100 MG in IV DEXTROSE 5% 50 ML IV SCH (08:57)
[2019-08-01] MEDS: OSELTAMIVIR 30 MG CAPSULE PO SCH ×2 (08:57→20:46)
[2019-08-01] MEDS: HEPARIN for IV BOLUS 10,000 UNIT/10 ML VIAL. IV PRN ×2 (09:11→15:42)
--- NOTE | 2019-08-01 09:24 | PDOC ---
PROGRESS NOTES History of Present Illness History of Present Illness VTE Prophylaxis Ordered VTE Prophylaxis Devices: Contraindicated VTE Pharmacological Prophylaxi: Yes Assessment/Plan Assessment/Plan impression 1. ACUTE HYPOXIC RESPIRATORY FAILURE 2. INFLUENZA A 3. Sepsis 4, PNA (pneumonia) 5. Altered mental status 6. ischemic right 4th toe 7. SONIA 8. a fib rvr 9. severe sepsis 10. homeless, self neglect due to lack of funds plan admit ICU BED CONSULT PULM CONSULT ID Daptomycin and Merrem and Tamiflu renally dosed Zyvox Micafungin, for groin dermatitis, // yeast. VENT SUPPORT CONSULT NEUROLOGY dvt prophylaxis vascular surgery FOLLOWING Nephrology consult cardiology consult cardizem drip Let the tissues demarcate and possibly areas heal. He has good circulation to both feet. Will continue heparin drip and [place] boots. 33 min cc time Vitals Vitals Vital Signs Date Time Temp Pulse Resp B/P (MAP) Pulse Ox O2 Delivery O2 Flow Rate FiO2 08/01/19 09:00 111 14 114/56 (75) 96 Ventilator 08/01/19 08:00 100.0 100.0 Physical Exam Physical Exam Cardiovascular: tachycardic rate with irregular rhythm[] Lungs & Thorax: [place] breath sounds are noted bilaterally with coarse inspiratory and expiratory rhonchi to auscultation [] Abdomen: Bowel sounds normal, soft, no tenderness. [] Skin: Warm, dry, no erythema, no rash. [] Extremities: No tenderness, mottled on the anterior aspect of thighs, ROM intact, feet are cold with bilateral edema. [] Neurologic: SEDATED ON VENT Rectal Exam: not examined Extremities: No cyanosis, Other (ischemic right 4th toe) General: No acute distress, Other (sedated) Lungs: Crackles Abdomen: Soft Extremities: No cyanosis, Other (ischemic right 4th toe) Skin: Other (right 4th toe lesion) Labs LABS Single view chest dated 08/01/2019. Comparison made to 07/30/2019. Clinical data indication: Intubation. FINDINGS: Single upright portable exam performed. Endotracheal tube, nasogastric tube and right internal jugular catheter is in place, unchanged. Heart and mediastinal contours are stable. There is patchy airspace disease at the mid and lower lung zone on the right, unchanged. There is also patchy perihilar opacity in the left, stable. No new infiltrate or pleural effusion. No pneumothorax. IMPRESSION: No significant interval change compared to 07/30/2019. Electronically signed by: Robert Meyer MD (08/01/2019 5:35 AM) [id number] DICTATED and SIGNED BY: ROBERT MEYER MD DATE: 08/01/19 0535 Laboratory Tests Test 07/31/19 15:00 07/31/19 22:20 08/01/19 05:15 08/01/19 07:15 Prothrombin Time 14.7 SEC (11.7-14.0) Prothromb Time International Ratio 1.2 (0.8-1.1) Activated Partial Thromboplast Time 39 SEC (24-38) Fibrinogen 755 mg/dL (200-440) D-Dimer (Arlette) 3.94 ug/mlFEU (0.00-0.50) Heparin Anti-Xa Act, Unfractionated < 0.10 IU/mL (0.30-0.70) < 0.10 IU/mL (0.30-0.70) White Blood Count 15.0 x10^3/uL (4.0-11.0) Red Blood Count 3.68 x10^6/uL (4.30-5.70) Hemoglobin 11.8 g/dL (13.0-17.5) Hematocrit 35.2 % (39.0-53.0) Mean Corpuscular Volume 96 fL (79-100) Mean Corpuscular Hemoglobin 32 pg (25-35) Mean Corpuscular Hemoglobin Concent 34 g/dL (31-37) Red Cell Distribution Width 13.9 % (11.5-14.5) Platelet Count 277 x10^3/uL (140-400) Neutrophils (%) (Auto) 91 % (31-73) Lymphocytes (%) (Auto) 8 % (24-48) Monocytes (%) (Auto) 1 % (0-9) Eosinophils (%) (Auto) 1 % (0-3) Basophils (%) (Auto) 0 % (0-3) Neutrophils # (Auto) 13.6 x10^3/uL (1.8-7.7) Lymphocytes # (Auto) 1.2 x10^3/uL (1.0-4.8) Monocytes # (Auto) 0.1 x10^3/uL (0.0-1.1) Eosinophils # (Auto) 0.1 x10^3/uL (0.0-0.7) Basophils # (Auto) 0.0 x10^3/uL (0.0-0.2) Sodium Level 139 mmol/L (136-145) Potassium Level 3.5 mmol/L (3.5-5.1) Chloride Level 101 mmol/L (98-107) Carbon Dioxide Level 24 mmol/L (21-32) Anion Gap 14 (6-14) Blood Urea Nitrogen 60 mg/dL (8-26) Creatinine 3.4 mg/dL (0.7-1.3) Estimated GFR (Cockcroft-Gault) 18.2 BUN/Creatinine Ratio 18 (6-20) Glucose Level 89 mg/dL (70-99) Calcium Level 7.7 mg/dL (8.5-10.1) Total Bilirubin 2.1 mg/dL (0.2-1.0) Aspartate Amino Transf (AST/SGOT) 79 U/L (15-37) Alanine Aminotransferase (ALT/SGPT) 23 U/L (16-63) Alkaline Phosphatase 61 U/L (46-116) Total Protein 4.9 g/dL (6.4-8.2) Albumin 2.1 g/dL (3.4-5.0) Albumin/Globulin Ratio 0.8 (1.0-1.7) O2 Saturation 97 % (92-99) Arterial Blood pH 7.41 (7.35-7.45) Arterial Blood pCO2 at Patient Temp 35 mmHg (35-46) Arterial Blood pO2 at Patient Temp 101 mmHg (65-108) Arterial Blood HCO3 21 mmol/L (21-28) Arterial Blood Base Excess -3 mmol/L (-3-3) FiO2 50% Test 08/01/19 08:15 Heparin Anti-Xa Act, Unfractionated 0.13 IU/mL (0.30-0.70) Assessment and Plan Assessmemt and Plan Problems Medical Problems: (1) Altered mental status Status: Acute Comment Review of Relevant I have reviewed the following items hay (where applicable) has been applied. Labs Laboratory Tests Test 07/30/19 17:45 07/30/19 17:53 07/30/19 18:00 07/30/19 18:12 White Blood Count 10.0 x10^3/uL (4.0-11.0) Red Blood Count 5.12 x10^6/uL (4.30-5.70) Hemoglobin 16.6 g/dL (13.0-17.5) Hematocrit 48.2 % (39.0-53.0) Mean Corpuscular Volume 94 fL (79-100) Mean Corpuscular Hemoglobin 32 pg (25-35) Mean Corpuscular Hemoglobin Concent 34 g/dL (31-37) Red Cell Distribution Width 13.5 % (11.5-14.5) Platelet Count 298 x10^3/uL (140-400) Neutrophils (%) (Auto) 94 % (31-73) Lymphocytes (%) (Auto) 6 % (24-48) Monocytes (%) (Auto) 0 % (0-9) Eosinophils (%) (Auto) 0 % (0-3) Basophils (%) (Auto) 0 % (0-3) Neutrophils # (Auto) 9.4 x10^3/uL (1.8-7.7) Lymphocytes # (Auto) 0.6 x10^3/uL (1.0-4.8) Monocytes # (Auto) 0.0 x10^3/uL (0.0-1.1) Eosinophils # (Auto) 0.0 x10^3/uL (0.0-0.7) Basophils # (Auto) 0.0 x10^3/uL (0.0-0.2) Segmented Neutrophils % 28 % (35-66) Band Neutrophils % 59 % (0-9) Lymphocytes % 9 % (24-48) Atypical Lymphocytes % (Manual) 3 % (0-0) Monocytes % 1 % (0-10) Toxic Granulation Mod Toxic Vacuolation Mod Platelet Estimate Adequate (ADEQUATE) Large Platelets Mod Giant Platelets Occ Lactic Acid Level 6.6 mmol/L (0.4-2.0) O2 Saturation 99 % (92-99) Arterial Blood pH 7.52 (7.35-7.45) Arterial Blood pCO2 at Patient Temp 23 mmHg (35-46) Arterial Blood pO2 at Patient Temp 136 mmHg (65-108) Arterial Blood HCO3 19 mmol/L (21-28) Arterial Blood Base Excess -2 mmol/L (-3-3) FiO2 60 Urine Collection Type Unknown Urine Color [place] Urine Clarity Cloudy Urine pH 6.0 Urine Specific [place] 1.025 Urine Protein 100 mg/dL (NEG-TRACE) Urine Glucose (UA) Negative mg/dL (NEG) Urine Ketones (Stick) Trace mg/dL (NEG) Urine Blood Small (NEG) Urine Nitrite Positive (NEG) Urine Bilirubin Moderate (NEG) Urine Urobilinogen Dipstick 2.0 mg/dL (0.2 mg/dL) Urine Leukocyte Esterase Small (NEG) Urine RBC Occ /HPF (0-2) Urine WBC 1-4 /HPF (0-4) Urine Squamous Epithelial Cells Mod /LPF Urine Amorphous Sediment Present /HPF Urine Bacteria Few /HPF (0-FEW) Urine Mucus Marked /LPF Influenza Type A Antigen Positive (NEGATIVE) Influenza Type B Antigen Negative (NEGATIVE) Test 07/30/19 18:15 07/30/19 18:25 07/30/19 20:26 07/30/19 21:25 Ammonia 14 mcmol/L (11-34) D-Dimer (Arlette) 2.92 ug/mlFEU (0.00-0.50) Sodium Level 138 mmol/L (136-145) 139 mmol/L (136-145) Potassium Level 3.2 mmol/L (3.5-5.1) 3.6 mmol/L (3.5-5.1) Chloride Level 99 mmol/L (98-107) 102 mmol/L (98-107) Carbon Dioxide Level 23 mmol/L (21-32) 22 mmol/L (21-32) Anion Gap 16 (6-14) 15 (6-14) Blood Urea Nitrogen 34 mg/dL (8-26) 35 mg/dL (8-26) Creatinine 1.0 mg/dL (0.7-1.3) 1.2 mg/dL (0.7-1.3) Estimated GFR (Cockcroft-Gault) 74.8 60.6 BUN/Creatinine Ratio 34 (6-20) 29 (6-20) Glucose Level 89 mg/dL (70-99) 98 mg/dL (70-99) Calcium Level 8.9 mg/dL (8.5-10.1) 8.5 mg/dL (8.5-10.1) Total Bilirubin 2.3 mg/dL (0.2-1.0) 2.4 mg/dL (0.2-1.0) Aspartate Amino Transf (AST/SGOT) 45 U/L (15-37) 49 U/L (15-37) Alanine Aminotransferase (ALT/SGPT) 22 U/L (16-63) 22 U/L (16-63) Alkaline Phosphatase 73 U/L (46-116) 72 U/L (46-116) Troponin I Quantitative 0.041 ng/mL (0.000-0.055) 0.109 ng/mL (0.000-0.055) IG-Wgi-Q-Type Natriuretic Peptide 727 pg/mL (0-124) Total Protein 6.5 g/dL (6.4-8.2) 6.5 g/dL (6.4-8.2) Albumin 2.1 g/dL (3.4-5.0) 2.0 g/dL (3.4-5.0) Albumin/Globulin Ratio 0.5 (1.0-1.7) 0.4 (1.0-1.7) Thyroid Stimulating Hormone (TSH) 0.823 uIU/mL (0.358-3.74) O2 Saturation 88 % (92-99) Arterial Blood pH 7.15 (7.35-7.45) Arterial Blood pH (Temp corrected) 7.12 Arterial Blood pCO2 at Patient Temp 71 mmHg (35-46) Arterial Blood pCO2 (Temp correct) 79 mmHg Arterial Blood pO2 at Patient Temp 67 mmHg (65-108) Arterial Blood pO2 (Temp corrected) 80 mmHg Arterial Blood HCO3 24 mmol/L (21-28) Arterial Blood Base Excess -7 mmol/L (-3-3) Oxyhemoglobin 86.5 % Methemoglobin 0.6 % (0.0-1.9) Carbon Monoxide, Quantitative 0.7 % (0.0-1.9) FiO2 65 Lactic Acid Level 6.1 mmol/L (0.4-2.0) Test 07/30/19 22:25 07/31/19 02:50 07/31/19 05:30 07/31/19 06:40 O2 Saturation 93 % (92-99) Arterial Blood pH 7.19 (7.35-7.45) Arterial Blood pCO2 at Patient Temp 58 mmHg (35-46) Arterial Blood pO2 at Patient Temp 75 mmHg (65-108) Arterial Blood HCO3 22 mmol/L (21-28) FiO2 65 Troponin I Quantitative 0.118 ng/mL (0.000-0.055) White Blood Count 16.5 x10^3/uL (4.0-11.0) Red Blood Count 4.35 x10^6/uL (4.30-5.70) Hemoglobin 13.8 g/dL (13.0-17.5) Hematocrit 41.7 % (39.0-53.0) Mean Corpuscular Volume 96 fL (79-100) Mean Corpuscular Hemoglobin 32 pg (25-35) Mean Corpuscular Hemoglobin Concent 33 g/dL (31-37) Red Cell Distribution Width 13.8 % (11.5-14.5) Platelet Count 301 x10^3/uL (140-400) Neutrophils (%) (Auto) 92 % (31-73) Lymphocytes (%) (Auto) 7 % (24-48) Monocytes (%) (Auto) 1 % (0-9) Eosinophils (%) (Auto) 0 % (0-3) Basophils (%) (Auto) 0 % (0-3) Neutrophils # (Auto) 15.2 x10^3/uL (1.8-7.7) Lymphocytes # (Auto) 1.2 x10^3/uL (1.0-4.8) Monocytes # (Auto) 0.1 x10^3/uL (0.0-1.1) Eosinophils # (Auto) 0.0 x10^3/uL (0.0-0.7) Basophils # (Auto) 0.0 x10^3/uL (0.0-0.2) Sodium Level 138 mmol/L (136-145) Potassium Level 3.4 mmol/L (3.5-5.1) Chloride Level 103 mmol/L (98-107) Carbon Dioxide Level 23 mmol/L (21-32) Anion Gap 12 (6-14) Blood Urea Nitrogen 40 mg/dL (8-26) Creatinine 1.7 mg/dL (0.7-1.3) Estimated GFR (Cockcroft-Gault) 40.5 BUN/Creatinine Ratio 24 (6-20) Glucose Level 98 mg/dL (70-99) Calcium Level 7.6 mg/dL (8.5-10.1) Magnesium Level 2.1 mg/dL (1.8-2.4) Total Bilirubin 2.2 mg/dL (0.2-1.0) Aspartate Amino Transf (AST/SGOT) 86 U/L (15-37) Alanine Aminotransferase (ALT/SGPT) 27 U/L (16-63) Alkaline Phosphatase 55 U/L (46-116) Creatine Kinase 96 U/L (39-308) Total Protein 5.5 g/dL (6.4-8.2) Albumin 1.6 g/dL (3.4-5.0) Albumin/Globulin Ratio 0.4 (1.0-1.7) Procalcitonin 25.67 ng/mL (0.00-0.10) Heparin Anti-Xa Act, Unfractionated < 0.10 IU/mL (0.30-0.70) Test 07/31/19 08:20 07/31/19 08:45 07/31/19 15:00 07/31/19 22:20 Lactic Acid Level 3.7 mmol/L (0.4-2.0) O2 Saturation 93 % (92-99) Arterial Blood pH 7.39 (7.35-7.45) Arterial Blood pCO2 at Patient Temp 37 mmHg (35-46) Arterial Blood pO2 at Patient Temp 65 mmHg (65-108) Arterial Blood HCO3 22 mmol/L (21-28) Arterial Blood Base Excess -3 mmol/L (-3-3) FiO2 50% Prothrombin Time 14.7 SEC (11.7-14.0) Prothromb Time International Ratio 1.2 (0.8-1.1) Activated Partial Thromboplast Time 39 SEC (24-38) Fibrinogen 755 mg/dL (200-440) D-Dimer (Arlette) 3.94 ug/mlFEU (0.00-0.50) Heparin Anti-Xa Act, Unfractionated < 0.10 IU/mL (0.30-0.70) < 0.10 IU/mL (0.30-0.70) Test 08/01/19 05:15 08/01/19 07:15 08/01/19 08:15 White Blood Count 15.0 x10^3/uL (4.0-11.0) Red Blood Count 3.68 x10^6/uL (4.30-5.70) Hemoglobin 11.8 g/dL (13.0-17.5) Hematocrit 35.2 % (39.0-53.0) Mean Corpuscular Volume 96 fL (79-100) Mean Corpuscular Hemoglobin 32 pg (25-35) Mean Corpuscular Hemoglobin Concent 34 g/dL (31-37) Red Cell Distribution Width 13.9 % (11.5-14.5) Platelet Count 277 x10^3/uL (140-400) Neutrophils (%) (Auto) 91 % (31-73) Lymphocytes (%) (Auto) 8 % (24-48) Monocytes (%) (Auto) 1 % (0-9) Eosinophils (%) (Auto) 1 % (0-3) Basophils (%) (Auto) 0 % (0-3) Neutrophils # (Auto) 13.6 x10^3/uL (1.8-7.7) Lymphocytes # (Auto) 1.2 x10^3/uL (1.0-4.8) Monocytes # (Auto) 0.1 x10^3/uL (0.0-1.1) Eosinophils # (Auto) 0.1 x10^3/uL (0.0-0.7) Basophils # (Auto) 0.0 x10^3/uL (0.0-0.2) Sodium Level 139 mmol/L (136-145) Potassium Level 3.5 mmol/L (3.5-5.1) Chloride Level 101 mmol/L (98-107) Carbon Dioxide Level 24 mmol/L (21-32) Anion Gap 14 (6-14) Blood Urea Nitrogen 60 mg/dL (8-26) Creatinine 3.4 mg/dL (0.7-1.3) Estimated GFR (Cockcroft-Gault) 18.2 BUN/Creatinine Ratio 18 (6-20) Glucose Level 89 mg/dL (70-99) Calcium Level 7.7 mg/dL (8.5-10.1) Total Bilirubin 2.1 mg/dL (0.2-1.0) Aspartate Amino Transf (AST/SGOT) 79 U/L (15-37) Alanine Aminotransferase (ALT/SGPT) 23 U/L (16-63) Alkaline Phosphatase 61 U/L (46-116) Total Protein 4.9 g/dL (6.4-8.2) Albumin 2.1 g/dL (3.4-5.0) Albumin/Globulin Ratio 0.8 (1.0-1.7) O2 Saturation 97 % (92-99) Arterial Blood pH 7.41 (7.35-7.45) Arterial Blood pCO2 at Patient Temp 35 mmHg (35-46) Arterial Blood pO2 at Patient Temp 101 mmHg (65-108) Arterial Blood HCO3 21 mmol/L (21-28) Arterial Blood Base Excess -3 mmol/L (-3-3) FiO2 50% Heparin Anti-Xa Act, Unfractionated 0.13 IU/mL (0.30-0.70) Laboratory Tests Test 07/31/19 15:00 07/31/19 22:20 08/01/19 05:15 08/01/19 07:15 Prothrombin Time 14.7 SEC (11.7-14.0) Prothromb Time International Ratio 1.2 (0.8-1.1) Activated Partial Thromboplast Time 39 SEC (24-38) Fibrinogen 755 mg/dL (200-440) D-Dimer (Arlette) 3.94 ug/mlFEU (0.00-0.50) Heparin Anti-Xa Act, Unfractionated < 0.10 IU/mL (0.30-0.70) < 0.10 IU/mL (0.30-0.70) White Blood Count 15.0 x10^3/uL (4.0-11.0) Red Blood Count 3.68 x10^6/uL (4.30-5.70) Hemoglobin 11.8 g/dL (13.0-17.5) Hematocrit 35.2 % (39.0-53.0) Mean Corpuscular Volume 96 fL (79-100) Mean Corpuscular Hemoglobin 32 pg (25-35) Mean Corpuscular Hemoglobin Concent 34 g/dL (31-37) Red Cell Distribution Width 13.9 % (11.5-14.5) Platelet Count 277 x10^3/uL (140-400) Neutrophils (%) (Auto) 91 % (31-73) Lymphocytes (%) (Auto) 8 % (24-48) Monocytes (%) (Auto) 1 % (0-9) Eosinophils (%) (Auto) 1 % (0-3) Basophils (%) (Auto) 0 % (0-3) Neutrophils # (Auto) 13.6 x10^3/uL (1.8-7.7) Lymphocytes # (Auto) 1.2 x10^3/uL (1.0-4.8) Monocytes # (Auto) 0.1 x10^3/uL (0.0-1.1) Eosinophils # (Auto) 0.1 x10^3/uL (0.0-0.7) Basophils # (Auto) 0.0 x10^3/uL (0.0-0.2) Sodium Level 139 mmol/L (136-145) Potassium Level 3.5 mmol/L (3.5-5.1) Chloride Level 101 mmol/L (98-107) Carbon Dioxide Level 24 mmol/L (21-32) Anion Gap 14 (6-14) Blood Urea Nitrogen 60 mg/dL (8-26) Creatinine 3.4 mg/dL (0.7-1.3) Estimated GFR (Cockcroft-Gault) 18.2 BUN/Creatinine Ratio 18 (6-20) Glucose Level 89 mg/dL (70-99) Calcium Level 7.7 mg/dL (8.5-10.1) Total Bilirubin 2.1 mg/dL (0.2-1.0) Aspartate Amino Transf (AST/SGOT) 79 U/L (15-37) Alanine Aminotransferase (ALT/SGPT) 23 U/L (16-63) Alkaline Phosphatase 61 U/L (46-116) Total Protein 4.9 g/dL (6.4-8.2) Albumin 2.1 g/dL (3.4-5.0) Albumin/Globulin Ratio 0.8 (1.0-1.7) O2 Saturation 97 % (92-99) Arterial Blood pH 7.41 (7.35-7.45) Arterial Blood pCO2 at Patient Temp 35 mmHg (35-46) Arterial Blood pO2 at Patient Temp 101 mmHg (65-108) Arterial Blood HCO3 21 mmol/L (21-28) Arterial Blood Base Excess -3 mmol/L (-3-3) FiO2 50% Test 08/01/19 08:15 Heparin Anti-Xa Act, Unfractionated 0.13 IU/mL (0.30-0.70) Microbiology 07/30/19 Blood Culture - Final, Complete Medications Current Medications Albuterol/ Ipratropium (Duoneb) 3 ml 1X ONCE NEB Last administered on 07/30/19at 18:00; Start 07/30/19 at 18:00; Stop 07/30/19 at 18:01; Status DC Albuterol Sulfate (Ventolin Neb Soln) 10 mg 1X ONCE CONT NEB Last administered on 07/30/19at 18:00; Start 07/30/19 at 18:00; Stop 07/30/19 at 18:01; Status DC Morphine Sulfate (Morphine Sulfate) 2 mg PRN Q15MIN PRN IV/SQ PAIN GREATER THAN 3/10 Last administered on 07/30/19at 18:08; Start 07/30/19 at 18:00; Stop 07/31/19 at 00:10; Status DC Diltiazem HCl (Cardizem Iv Push) 10 mg 1X ONCE IVP Last administered on 07/30/19at 18:01; Start 07/30/19 at 18:00; Stop 07/30/19 at 18:01; Status DC Diltiazem HCl 125 mg/Sodium Chloride 125 ml @ 5 mls/hr 1X ONCE IV Last administered on 07/30/19at 18:36; Start 07/30/19 at 18:00; Stop 07/31/19 at 18:59; Status DC Lorazepam (Ativan Inj) 2 mg 1X ONCE IVP Last administered on 07/30/19at 18:35; Start 07/30/19 at 18:15; Stop 07/30/19 at 18:16; Status DC Lorazepam (Ativan Inj) 2 mg STK-MED ONCE .ROUTE ; Start 07/30/19 at 18:14; Stop 07/30/19 at 18:14; Status DC Digoxin (Lanoxin) 250 mcg 1X ONCE IV Last administered on 07/30/19at 18:53; Start 07/30/19 at 18:45; Stop 07/30/19 at 18:46; Status DC Amiodarone HCl 150 mg/Dextrose 103 ml @ 618 mls/hr 1X ONCE IV Last administered on 07/30/19at 20:07; Start 07/30/19 at 18:45; Stop 07/30/19 at 18:54; Status DC Amiodarone HCl 450 mg/Dextrose 259 ml @ 0 mls/hr CONT PRN IV SEE I/O RECORD Last administered on 07/30/19at 20:21; Start 07/30/19 at 18:45 Sodium Chloride 1,000 ml @ 1,000 mls/hr 1X ONCE IV Last administered on 07/30/19at 18:20; Start 07/30/19 at 18:45; Stop 07/31/19 at 02:15; Status DC Sodium Chloride 2,130 ml @ 2,130 mls/hr Q1H IV Last administered on 07/30/19at 19:02; Start 07/30/19 at 18:53; Stop 07/31/19 at 02:15; Status DC Piperacillin Sod/ Tazobactam Sod 4.5 gm/Sodium Chloride 100 ml @ 200 mls/hr 1X ONCE IV Last administered on 07/30/19at 19:06; Start 07/30/19 at 19:00; Stop 07/31/19 at 08:04; Status DC Vancomycin HCl (Vanco Per Pharmacy) 1 each 1X ONCE MC ; Start 07/30/19 at 19:00; Stop 07/31/19 at 08:04; Status DC Norepinephrine Bitartrate 8 mg/ Dextrose 258 ml @ 0 mls/hr CONT PRN IV PER PROTOCOL; Start 07/30/19 at 19:00; Stop 07/31/19 at 08:04; Status DC Potassium Chloride/Water 100 ml @ 100 mls/hr Q1H IV Last administered on 07/30/19at 21:31; Start 07/30/19 at 19:30; Stop 07/30/19 at 21:29; Status DC Vancomycin HCl 2 gm/Sodium Chloride 500 ml @ 250 mls/hr 1X ONCE IV Last administered on 07/30/19at 20:15; Start 07/30/19 at 19:15; Stop 07/30/19 at 21:14; Status DC Fentanyl Citrate (Fentanyl 2ml Vial) 25 mcg PRN Q1HR PRN IV SEE COMMENTS; Start 07/30/19 at 19:15; Stop 07/31/19 at 00:11; Status DC Fentanyl Citrate (Fentanyl 2ml Vial) 50 mcg PRN Q1HR PRN IV SEE COMMENTS; Start 07/30/19 at 19:15; Stop 07/31/19 at 00:11; Status DC Chlorhexidine Gluconate (Peridex) 15 ml BID MM Last administered on 08/01/19at 08:57; Start 07/30/19 at 21:00 Morphine Sulfate (Morphine Sulfate) 2 mg PRN Q1HR PRN IV SEE COMMENTS.; Start 07/30/19 at 19:15; Stop 07/31/19 at 00:11; Status DC Morphine Sulfate (Morphine Sulfate) 4 mg PRN Q1HR PRN IV SEE COMMENTS.; Start 07/30/19 at 19:15; Stop 07/31/19 at 00:11; Status DC Midazolam HCl 50 mg/Sodium Chloride 50 ml @ 0 mls/hr CONT PRN IV SEE PROTOCOL Last administered on 07/30/19at 20:40; Start 07/30/19 at 19:15; Stop 07/31/19 at 00:10; Status DC Acetaminophen (Tylenol Supp) 650 mg 1X ONCE IA Last administered on 07/30/19at 20:49; Start 07/30/19 at 20:15; Stop 07/30/19 at 20:16; Status DC Ondansetron HCl (Zofran) 4 mg PRN Q8HRS PRN IV NAUSEA/VOMITING; Start 07/30/19 at 20:30; Stop 07/31/19 at 20:29; Status DC Acetaminophen (Tylenol) 650 mg PRN Q4HRS PRN PO FEVER Last administered on 07/31/19at 12:49; Start 07/30/19 at 20:30; Stop 07/31/19 at 20:29; Status DC Heparin Sodium/ Dextrose 250 ml @ 0 mls/hr CONT PRN IV PER PROTOCOL Last ad ministered on 07/31/19at 20:07; Start 07/30/19 at 20:45 Heparin Sodium (Porcine) (Heparin Sodium) 2,200 unit PRN Q6HRS PRN IV FOR UFH LEVEL LESS THAN 0.2 Last administered on 08/01/19at 09:11; Start 07/30/19 at 20:45 Info (Anti-Coagulation Monitoring By Pharmacy) 1 each PRN DAILY PRN MC SEE COMMENTS Last administered on 07/31/19at 13:57; Start 07/30/19 at 21:00 Etomidate (Amidate) 20 mg STK-MED ONCE IV ; Start 07/30/19 at 21:15; Stop 07/30/19 at 21:16; Status DC Rocuronium Chase (Zemuron) 50 mg STK-MED ONCE .ROUTE ; Start 07/30/19 at 21:16; Stop 07/30/19 at 21:16; Status DC Diltiazem HCl 125 mg/Sodium Chloride 125 ml @ 5 mls/hr CONT PRN IV SEE I/O RECORD; Start 07/30/19 at 22:30; Stop 07/31/19 at 06:01; Status DC Sodium Bicarbonate 100 meq/Dextrose 1,100 ml @ 75 mls/hr 1X ONCE IV Last administered on 07/31/19at 01:54; Start 07/30/19 at 23:00; Stop 07/31/19 at 13:39; Status DC Etomidate (Amidate) 20 mg 1X ONCE IV Last administered on 07/30/19at 19:27; Start 07/30/19 at 23:45; Stop 07/30/19 at 23:46; Status DC Rocuronium [place] (Zemuron) 50 mg 1X ONCE IV Last administered on 07/30/19at 19:28; Start 07/30/19 at 23:45; Stop 07/30/19 at 23:46; Status DC Rocuronium Chase (Zemuron) 50 mg 1X ONCE IV Last administered on 07/30/19at 19:28; Start 07/30/19 at 23:45; Stop 07/30/19 at 23:46; Status DC Digoxin (Lanoxin) 250 mcg 1X ONCE IV Last administered on 07/31/19at 00:12; Start 07/31/19 at 00:30; Stop 07/31/19 at 00:31; Status DC Heparin Sodium/ Dextrose 250 ml @ 0 mls/hr CONT PRN IV SEE I/O RECORD; Start 07/31/19 at 00:00; Status UNV Fentanyl Citrate 30 ml @ 0 mls/hr CONT PRN IV SEE PROTOCOL Last administered on 07/31/19at 22:27; Start 07/31/19 at 00:15 Midazolam HCl 50 mg/Sodium Chloride 50 ml @ 0 mls/hr CONT PRN IV SEE PROTOCOL Last administered on 08/01/19at 03:04; Start 07/31/19 at 00:15 Diltiazem HCl 125 mg/Sodium Chloride 125 ml @ 5 mls/hr CONT PRN IV SEE I/O RECORD Last administered on 08/01/19at 03:03; Start 07/31/19 at 01:00 Albuterol/ Ipratropium (Duoneb) 3 ml Q4HRS NEB Last administered on 08/01/19at 07:07; Start 07/31/19 at 04:00 Sodium Chloride 1,000 ml @ 120 mls/hr Q8H20M IV Last administered on 07/31/19at 02:30; Start 07/31/19 at 02:30; Stop 07/31/19 at 13:55; Status DC Vancomycin HCl (Vanco Per Pharmacy) 1 each PRN DAILY PRN MC SEE COMMENTS Last administered on 07/31/19at 03:30; Start 07/31/19 at 02:30; Stop 07/31/19 at 08:06; Status DC Vancomycin HCl 1.25 gm/Sodium Chloride 250 ml @ 167 mls/hr Q12H IV Last administered on 07/31/19at 07:57; Start 07/31/19 at 08:00; Stop 07/31/19 at 0 8:06; Status DC Vancomycin HCl (Vancomycin Trough Level) 1 each 1X ONCE MC ; Start 08/01/19 at 07:30; Stop 08/01/19 at 07:31; Status Cancel Micafungin Sodium 100 mg/Dextrose 100 ml @ 100 mls/hr Q24H IV Last administered on 08/01/19at 07:23; Start 07/31/19 at 08:00 Oseltamivir Phosphate (Tamiflu) 30 mg BID PO Last administered on 08/01/19at 08:57; Start 07/31/19 at 09:00; Stop 08/05/19 at 08:59 Linezolid/Dextrose 300 ml @ 300 mls/hr Q12HR IV Last administered on 07/31/19at 21:15; Start 07/31/19 at 09:00 Daptomycin 490 mg/ Sodium Chloride 50 ml @ 100 mls/hr Q24H IV Last administered on 07/31/19at 12:40; Start 07/31/19 at 10:00; Stop 08/01/19 at 09:01; Status DC Meropenem 1 gm/ Sodium Chloride 100 ml @ 200 mls/hr Q12HR IV Last administered on 08/01/19at 08:30; Start 07/31/19 at 09:00 Potassium Bicarbonate (Potassium Effervescent Tablet) 40 meq 1X ONCE PEG Last administered on 07/31/19at 10:54; Start 07/31/19 at 10:30; Stop 07/31/19 at 10:43; Status DC Famotidine (Pepcid Vial) 20 mg QHS IVP Last administered on 07/31/19at 21:16; Start 07/31/19 at 21:00 Albumin Human 100 ml @ 100 mls/hr TID IV Last administered on 08/01/19at 08:57; Start 07/31/19 at 14:30; Stop 08/02/19 at 09:59 Sodium Chloride 2,340 ml @ 2,340 mls/hr Q1H IV ; Start 07/31/19 at 14:48; St atus UNV Sodium Chloride 500 ml @ 1,000 mls/hr PRN Q30MIN PRN IV SEE COMMENTS; Start 07/31/19 at 15:00; Status UNV Dobutamine HCl/ Dextrose 250 ml @ 0 mls/hr CONT PRN IV SEE I/O RECORD; Start 07/31/19 at 15:00; Status UNV Ondansetron HCl (Zofran) 4 mg PRN Q6HRS PRN IV NAUSEA/VOMITING; Start 07/31/19 at 15:00 Prochlorperazine (Compazine) 25 mg PRN Q12HR PRN IA NAUSEA/VOMITING; Start 07/31/19 at 15:00 Famotidine (Pepcid Vial) 20 mg BID IVP ; Start 07/31/19 at 21:00; Status UNV Sodium Chloride (Normal Saline Flush) 3 ml QSHIFT PRN IV AFTER MEDS AND BLOOD DRAWS; Start 07/31/19 at 15:00 Bisacodyl (Dulcolax Supp) 10 mg PRN DAILY PRN IA CONSTIPATION; Start 07/31/19 at 15:00 Thiamine HCl 100 mg/Dextrose 51 ml @ 102 mls/hr DAILY IV Last administered on 08/01/19at 08:57; Start 07/31/19 at 17:00 Vitamin A/Vitamin D (Vitamin A & D Ointment) 1 milton PRN Q1HR PRN TP SKIN PROTECTION; Start 07/31/19 at 16:45 Daptomycin 490 mg/ Sodium Chloride 50 ml @ 100 mls/hr Q48H IV ; Start 08/01/19 at 10:00 Active Scripts Active Proair Hfa (Albuterol Sulfate) 8.5 Gm Hfa.aer.ad 2 Puff IH PRN Q4-6HRS PRN 21 Days Tessalon Perle (Benzonatate) 100 Mg Capsule 1 Cap PO TID Prednisone 50 Mg Tablet 1 Tab PO DAILY Cyclobenzaprine Hcl 5 Mg Tablet 1 Tab PO TID Ibuprofen 800 Mg Tablet 800 Mg PO Q6-8HRS Zofran Odt (Ondansetron) 4 Mg Tab.rapdis 1 Tab SL Q8HRS Ultram (Tramadol Hcl) 50 Mg Tablet 1 Tab PO Q6HRS Vitals/I & O Vital Sign - Last 24 Hours 07/31/19 07/31/19 07/31/19 07/31/19 09:30 10:00 11:00 11:13 Pulse 121 123 Resp 20 20 B/P (MAP) 116/71 (86) 109/64 (79) Pulse Ox 97 96 97 96 O2 Delivery Ventilator Ventilator Ventilator Ventilator 07/31/19 07/31/19 07/31/19 07/31/19 11:46 12:00 13:00 13:09 Temp 103.0 103.0 Pulse 117 121 Resp 20 16 B/P (MAP) 102/62 (75) 91/61 (71) Pulse Ox 97 96 97 O2 Delivery Mechanical Ventilator Ventilator Ventilator Ventilator 07/31/19 07/31/19 07/31/19 07/31/19 14:00 15:00 15:31 15:43 Temp 102.2 102.2 Pulse 114 111 Resp 17 18 B/P (MAP) 105/60 (75) 100/62 (75) Pulse Ox 98 97 93 O2 Delivery Ventilator Ventilator Ventilator Mechanical Ventilator 07/31/19 07/31/19 07/31/19 07/31/19 16:00 16:51 17:00 18:00 Temp 100.2 100.2 Pulse 108 105 104 Resp 18 16 16 B/P (MAP) 98/56 (70) 98/57 (71) 104/52 (69) Pulse Ox 96 92 94 96 O2 Delivery Ventilator Ventilator Ventilator Ventilator 07/31/19 07/31/19 07/31/19 07/31/19 19:00 20:00 20:00 20:50 Temp 100.2 100.2 Pulse 107 112 Resp 16 16 B/P (MAP) 108/63 (78) 112/59 (76) Pulse Ox 96 97 93 O2 Delivery Ventilator Ventilator Mechanical Ventilator Ventilator 07/31/19 07/31/19 07/31/19 07/31/19 21:00 22:00 22:09 23:00 Pulse 110 110 107 Resp 16 16 16 B/P (MAP) 136/64 (88) 124/59 (80) 99/51 (67) Pulse Ox 96 96 93 97 O2 Delivery Ventilator Ventilator Ventilator Ventilator 08/01/19 08/01/19 08/01/19 08/01/19 00:00 00:00 00:31 01:00 Temp 101.2 101.2 Pulse 105 103 Resp 16 16 B/P (MAP) 112/52 (72) 123/54 (77) Pulse Ox 98 96 98 O2 Delivery Ventilator Mechanical Ventilator Ventilator Ventilator 08/01/19 08/01/19 08/01/19 08/01/19 02:00 03:00 03:06 04:00 Pulse 105 104 Resp 16 16 B/P (MAP) 112/53 (72) 119/56 (77) Pulse Ox 98 98 96 O2 Delivery Ventilator Ventilator Ventilator Mechanical Ventilator 08/01/19 08/01/19 08/01/19 08/01/19 04:00 05:00 05:44 06:00 Temp 101.3 101.3 Pulse 106 108 109 Resp 16 16 16 B/P (MAP) 124/58 (80) 128/62 (84) 118/53 (74) Pulse Ox 98 98 96 98 O2 Delivery Ventilator Ventilator Ventilator Ventilator 08/01/19 08/01/19 08/01/19 08/01/19 07:00 07:07 08:00 08:00 Temp 100.0 100.0 Pulse 109 106 Resp 16 16 B/P (MAP) 110/56 (74) 111/55 (73) Pulse Ox 96 97 97 O2 Delivery Ventilator Ventilator Mechanical Ventilator Ventilator 08/01/19 08/01/19 08:34 09:00 Pulse 111 Resp 14 B/P (MAP) 114/56 (75) Pulse Ox 96 96 O2 Delivery Ventilator Ventilator Intake and Output 07/31/19 07/31/19 08/01/19 14:59 22:59 06:59 Intake Total 1000 ml 2165 ml 1606.4 ml Output Total 93 ml 34 ml 35 ml Balance 907 ml 2131 ml 1571.4 ml Nutrition Consultation Dietary Evaluation: Recommendations by RD: Dietary education by RD, Increase Calorie Intake Comments: REC TFs per following: VitalAF@20 ml/hr, increase 10 ml q8 hrs as tolerated to goal rate 65 ml/hr w/200 ml water flushes q4 hrs or flushes per MD Expected Outcomes/Goals: Initiation of TFs within 24 - 48 hrs of intubation Malnutrition Findings: Food and Nutrition Intake (Mod: <75% est energy req 7days Body Fat Depletion (Non Severe: Mild Depletion Weight Status: Appropriate CORY SCHMIDT MD Aug 01, 2019 09:24
--- NOTE | 2019-08-01 09:55 | PDOC ---
Infectious Disease Note Subjective Subjective Orally intubated and sedated FiO2 45%, SpO2 96% Tube feedings on hold On a Cardizem gtt Fevers Tmax 103 ROS ROS unobtainable Vital Sign Vital Signs Vital Signs Date Time Temp Pulse Resp B/P (MAP) Pulse Ox O2 Delivery O2 Flow Rate FiO2 08/01/19 09:00 111 14 114/56 (75) 96 Ventilator 08/01/19 08:00 100.0 100.0 Physical Exam PHYSICAL EXAM GENERAL: Sedated, orally intubated HEENT: Pupils equal, little bit blood left eye, ETT and OGT in place. NECK: Supple. LUNGS: Improved aeration HEART: S1, S2, tachycardic, irregular rhythm. ABDOMEN: Obese, soft : Valladares in place, scrotal swelling, erythema EXTREMITIES: Mottling/ischemic changes to feet bilaterally, (R>L). Rooke boots DERMATOLOGIC: As above. No generalized rash. NEUROLOGIC: Sedated and intubated. RIJ in place. PIV Labs Lab Laboratory Tests Test 07/31/19 15:00 07/31/19 22:20 08/01/19 05:15 08/01/19 07:15 Prothrombin Time 14.7 SEC (11.7-14.0) Prothromb Time International Ratio 1.2 (0.8-1.1) Activated Partial Thromboplast Time 39 SEC (24-38) Fibrinogen 755 mg/dL (200-440) D-Dimer (Arlette) 3.94 ug/mlFEU (0.00-0.50) Heparin Anti-Xa Act, Unfractionated < 0.10 IU/mL (0.30-0.70) < 0.10 IU/mL (0.30-0.70) White Blood Count 15.0 x10^3/uL (4.0-11.0) Red Blood Count 3.68 x10^6/uL (4.30-5.70) Hemoglobin 11.8 g/dL (13.0-17.5) Hematocrit 35.2 % (39.0-53.0) Mean Corpuscular Volume 96 fL (79-100) Mean Corpuscular Hemoglobin 32 pg (25-35) Mean Corpuscular Hemoglobin Concent 34 g/dL (31-37) Red Cell Distribution Width 13.9 % (11.5-14.5) Platelet Count 277 x10^3/uL (140-400) Neutrophils (%) (Auto) 91 % (31-73) Lymphocytes (%) (Auto) 8 % (24-48) Monocytes (%) (Auto) 1 % (0-9) Eosinophils (%) (Auto) 1 % (0-3) Basophils (%) (Auto) 0 % (0-3) Neutrophils # (Auto) 13.6 x10^3/uL (1.8-7.7) Lymphocytes # (Auto) 1.2 x10^3/uL (1.0-4.8) Monocytes # (Auto) 0.1 x10^3/uL (0.0-1.1) Eosinophils # (Auto) 0.1 x10^3/uL (0.0-0.7) Basophils # (Auto) 0.0 x10^3/uL (0.0-0.2) Sodium Level 139 mmol/L (136-145) Potassium Level 3.5 mmol/L (3.5-5.1) Chloride Level 101 mmol/L (98-107) Carbon Dioxide Level 24 mmol/L (21-32) Anion Gap 14 (6-14) Blood Urea Nitrogen 60 mg/dL (8-26) Creatinine 3.4 mg/dL (0.7-1.3) Estimated GFR (Cockcroft-Gault) 18.2 BUN/Creatinine Ratio 18 (6-20) Glucose Level 89 mg/dL (70-99) Calcium Level 7.7 mg/dL (8.5-10.1) Total Bilirubin 2.1 mg/dL (0.2-1.0) Aspartate Amino Transf (AST/SGOT) 79 U/L (15-37) Alanine Aminotransferase (ALT/SGPT) 23 U/L (16-63) Alkaline Phosphatase 61 U/L (46-116) Total Protein 4.9 g/dL (6.4-8.2) Albumin 2.1 g/dL (3.4-5.0) Albumin/Globulin Ratio 0.8 (1.0-1.7) O2 Saturation 97 % (92-99) Arterial Blood pH 7.41 (7.35-7.45) Arterial Blood pCO2 at Patient Temp 35 mmHg (35-46) Arterial Blood pO2 at Patient Temp 101 mmHg (65-108) Arterial Blood HCO3 21 mmol/L (21-28) Arterial Blood Base Excess -3 mmol/L (-3-3) FiO2 50% Test 08/01/19 08:15 Heparin Anti-Xa Act, Unfractionated 0.13 IU/mL (0.30-0.70) Micro 07/30. BLOOD CULTURE Final GRAM POSITIVE COCCI, IN SINGLES, PAIRS AND CHAINS, IN 4 OF 4 BOTTLES, TWO SETS DRAWN ON 07/30/19. CALLED TO KAYLEIGH BROWN RN IN ICU AT 8:40 ON 08/01/19 [facility] Objective Assessment Septic shock GPC in chains/pairs bacteremia, (4 of 4 bottles), 07/30 ? source Influenza A, respiratory tract infection. Acute hypoxic respiratory failure with pneumonia, status post intubation. Encephalopathy. Lactic acidosis. Acute kidney injury. Hyperbilirubinemia. LFT elevation. High troponin. Atrial fibrillation with rapid ventricular response, on amiodarone. Severe peripheral vascular disease, mainly in the right lower extremity. Right 4th toe ? ischemic/ embolic Homelessness. Groin dermatitis. Tinea Plan Plan of Care Daptomycin and Merrem and Tamiflu renally dosed Zyvox Micafungin, for groin dermatitis, likely yeast. Follow up labs and cultures Repeat BC Maintain aspiration precautions Droplet precautions Critically ill Prognosis poor Patient seen and examined. Labs, micro, and chart reviewed. D/W SWATCH CHECKER Agree with above A/P D/W EVELINA HANSEN APRN Aug 01, 2019 09:55 YURI CHAWLA MD Aug 01, 2019 11:17
[2019-08-01] MEDS: DAPTOmycin (GENERIC) IVPB 490 MG in IV NORMAL SALINE 50ML 50 ML IV SCH (10:36)
--- NOTE | 2019-08-01 11:10 | PDOC ---
Provider Note Provider Note Vascular Surgery Intubated on the vent bilateral lower extremities with swelling right foot with demarcating areas of tissue ischemic type changes with cyanosis/early gangrene and blistering, the plantar foot and several toes are much pinker today, strong DP/PT doppler pulses left foot is pink, no further cyanosis, doppler DP/PT pulse A/P 64 year old male in septic shock has early demarcating gangrene in the right foot. This may be secondary to ischemic event however he has had good circulation and patent duplex since admission. He is homeless and present confused to hospital so could also be frostbite or injury? He surgical intervention needed at this point. Will let the tissues demarcate and possibly areas heal. He has good circulation to both feet. Will continue heparin drip and Rooke boots. CYNTHIA DE ANDA MD Aug 01, 2019 11:10
--- NOTE | 2019-08-01 12:06 | PDOC ---
SUBJECTIVE ROS Patient remains sedated intubated on the vent area and he has not made much urine over the last 24 hours. OBJECTIVE Vital Signs Vital Signs Date Time Temp Pulse Resp B/P (MAP) Pulse Ox O2 Delivery O2 Flow Rate FiO2 08/01/19 11:57 Mechanical Ventilator 08/01/19 11:30 98 08/01/19 11:00 105 14 130/59 (82) 08/01/19 08:00 100.0 100.0 I & 0 Intake and Output 08/01/19 07:00 Intake Total 4771.4 ml Output Total 137 ml Balance 4634.4 ml Intake IV Total 2864.4 ml Tube Feeding 1307 ml Other 600 ml Output Urine Total 137 ml PHYSICAL EXAM Physical Exam GEN: sedated intubated on the vent EYES: , Conjunctiva Normal, sclera anicteric EN: No EN Drainage, Mucous Membranes moist, orally intubated NECK: no JVD, min JVP, Supple, no Thyromegaly CVS: S1S2, ? Murmur, No Gallop, No Rub, no Edema RESP: few Rales, no Rhonchi,no Acc. Muscle Use GI: BS + ve, NO Bruit, Non Tender, Non Distended : no CVA tenderness, no Suprapubic Tenderness Assessment & Plan ARF: Possible ATN: Patient remains oligo anuric at this time. We'll proceed with hemodialysis in the near future Elevated lactic acid: Appears to be trending downwards. Gap was closed and hence suspect this is resolved. Hypoalbuminemia: Suspect malnutrition, IV albumin as ordered Oligo anuria: IV Lasix will be ordered after albumin is down to see if this can elicit the urinary response Hypokalemia: Appears to have been replaced. Replace as needed thereafter hypocalcemia: Appropriate for low albumin Respiratory failure: Patient on the ventilator defer to Dr. Bowden. Influenza A is positive. COMMENT/RELEVANT DATA Meds Current Medications Medications (Trade) Dose Ordered Sig/Casper Start Time Stop Time Status Last Admin Dose Admin Acetaminophen (Tylenol Supp) 650 mg 1X ONCE 07/30/19 20:15 07/30/19 20:16 DC 07/30/19 20:49 650 MG Acetaminophen (Tylenol) 650 mg PRN Q4HRS PRN 07/30/19 20:30 07/31/19 20:29 DC 07/31/19 12:49 650 MG Albumin Human 100 ml @ 100 mls/hr TID 07/31/19 14:30 08/02/19 09:59 08/01/19 08:57 100 MLS/HR Albuterol Sulfate (Ventolin Neb Soln) 10 mg 1X ONCE 07/30/19 18:00 07/30/19 18:01 DC 07/30/19 18:00 10 MG Albuterol/ Ipratropium (Duoneb) 3 ml Q4HRS 07/31/19 04:00 08/01/19 11:30 3 ML Amiodarone HCl 150 mg/Dextrose 103 ml @ 618 mls/hr 1X ONCE 07/30/19 18:45 07/30/19 18:54 DC 07/30/19 20:07 618 MLS/HR Amiodarone HCl 450 mg/Dextrose 259 ml @ 0 mls/hr CONT PRN 07/30/19 18:45 07/30/19 20:21 33.3 MLS/HR Bisacodyl (Dulcolax Supp) 10 mg PRN DAILY PRN 07/31/19 15:00 Chlorhexidine Gluconate (Peridex) 15 ml BID 07/30/19 21:00 08/01/19 08:57 15 ML Daptomycin 490 mg/ Sodium Chloride 50 ml @ 100 mls/hr Q48H 08/01/19 10:00 08/01/19 10:36 100 MLS/HR Digoxin (Lanoxin) 250 mcg 1X ONCE 07/31/19 00:30 07/31/19 00:31 DC 07/31/19 00:12 250 MCG Diltiazem HCl (Cardizem Iv Push) 10 mg 1X ONCE 07/30/19 18:00 07/30/19 18:01 DC 07/30/19 18:01 10 MG Diltiazem HCl 125 mg/Sodium Chloride 125 ml @ 5 mls/hr CONT PRN 07/31/19 01:00 08/01/19 03:03 5 MLS/HR Dobutamine HCl/ Dextrose 250 ml @ 0 mls/hr CONT PRN 07/31/19 15:00 UNV Etomidate (Amidate) 20 mg 1X ONCE 07/30/19 23:45 07/30/19 23:46 DC 07/30/19 19:27 20 MG Famotidine (Pepcid Vial) 20 mg BID 07/31/19 21:00 UNV Fentanyl Citrate 30 ml @ 0 mls/hr CONT PRN 07/31/19 00:15 07/31/19 22:27 1.25 MLS/HR Fentanyl Citrate (Fentanyl 2ml Vial) 50 mcg PRN Q1HR PRN 07/30/19 19:15 07/31/19 00:11 DC Furosemide (Lasix) 40 mg 1X ONCE 08/01/19 22:30 08/01/19 22:31 Heparin Sodium (Porcine) (Heparin Sodium) 2,200 unit PRN Q6HRS PRN 07/30/19 20:45 08/01/19 09:11 2,200 UNIT Heparin Sodium/ Dextrose 250 ml @ 0 mls/hr CONT PRN 07/31/19 00:00 UNV Info (Anti-Coagulation Monitoring By Pharmacy) 1 each PRN DAILY PRN 07/30/19 21:00 07/31/19 13:57 1 EACH Linezolid/Dextrose 300 ml @ 300 mls/hr Q12HR 07/31/19 09:00 08/01/19 09:33 300 MLS/HR Lorazepam (Ativan Inj) 2 mg STK-MED ONCE 07/30/19 18:14 07/30/19 18:14 DC Meropenem 1 gm/ Sodium Chloride 100 ml @ 200 mls/hr Q12HR 07/31/19 09:00 08/01/19 08:30 200 MLS/HR Micafungin Sodium 100 mg/Dextrose 100 ml @ 100 mls/hr Q24H 07/31/19 08:00 08/01/19 07:23 100 MLS/HR Midazolam HCl 50 mg/Sodium Chloride 50 ml @ 0 mls/hr CONT PRN 07/31/19 00:15 08/01/19 03:04 5 MLS/HR Morphine Sulfate (Morphine Sulfate) 4 mg PRN Q1HR PRN 07/30/19 19:15 07/31/19 00:11 DC Norepinephrine Bitartrate 8 mg/ Dextrose 258 ml @ 0 mls/hr CONT PRN 07/30/19 19:00 07/31/19 08:04 DC Ondansetron HCl (Zofran) 4 mg PRN Q6HRS PRN 07/31/19 15:00 Oseltamivir Phosphate (Tamiflu) 30 mg BID 07/31/19 09:00 08/05/19 08:59 08/01/19 08:57 30 MG Piperacillin Sod/ Tazobactam Sod 4.5 gm/Sodium Chloride 100 ml @ 200 mls/hr 1X ONCE 07/30/19 19:00 07/31/19 08:04 DC 07/30/19 19:06 200 MLS/HR Potassium Bicarbonate (Potassium Effervescent Tablet) 40 meq 1X ONCE 07/31/19 10:30 07/31/19 10:43 DC 07/31/19 10:54 40 MEQ Potassium Chloride/Water 100 ml @ 100 mls/hr Q1H 07/30/19 19:30 07/30/19 21:29 DC 07/30/19 21:31 100 MLS/HR Prochlorperazine (Compazine) 25 mg PRN Q12HR PRN 07/31/19 15:00 Rocuronium Wanda (Zemuron) 50 mg 1X ONCE 07/30/19 23:45 07/30/19 23:46 DC 07/30/19 19:28 50 MG Sodium Bicarbonate 100 meq/Dextrose 1,100 ml @ 75 mls/hr 1X ONCE 07/30/19 23:00 07/31/19 13:39 DC 07/31/19 01:54 75 MLS/HR Sodium Chloride (Normal Saline Flush) 3 ml QSHIFT PRN 07/31/19 15:00 Thiamine HCl 100 mg/Dextrose 51 ml @ 102 mls/hr DAILY 07/31/19 17:00 08/01/19 08:57 102 MLS/HR Vancomycin HCl (Vanco Per Pharmacy) 1 each PRN DAILY PRN 07/31/19 02:30 07/31/19 08:06 DC 07/31/19 03:30 1 EACH Vancomycin HCl (Vancomycin Trough Level) 1 each 1X ONCE 08/01/19 07:30 08/01/19 07:31 Cancel Vancomycin HCl 1.25 gm/Sodium Chloride 250 ml @ 167 mls/hr Q12H 07/31/19 08:00 07/31/19 08:06 DC 07/31/19 07:57 167 MLS/HR Vancomycin HCl 2 gm/Sodium Chloride 500 ml @ 250 mls/hr 1X ONCE 07/30/19 19:15 2/27/20 21:14 DC 07/30/19 20:15 250 MLS/HR Vitamin A/Vitamin D (Vitamin A & D Ointment) 1 milton PRN Q1HR PRN 07/31/19 16:45 Lab Laboratory Tests Test 07/31/19 15:00 07/31/19 22:20 08/01/19 05:15 08/01/19 07:15 Prothrombin Time 14.7 SEC (11.7-14.0) Prothromb Time International Ratio 1.2 (0.8-1.1) Activated Partial Thromboplast Time 39 SEC (24-38) Fibrinogen 755 mg/dL (200-440) D-Dimer (Arlette) 3.94 ug/mlFEU (0.00-0.50) Heparin Anti-Xa Act, Unfractionated < 0.10 IU/mL (0.30-0.70) < 0.10 IU/mL (0.30-0.70) White Blood Count 15.0 x10^3/uL (4.0-11.0) Red Blood Count 3.68 x10^6/uL (4.30-5.70) Hemoglobin 11.8 g/dL (13.0-17.5) Hematocrit 35.2 % (39.0-53.0) Mean Corpuscular Volume 96 fL (79-100) Mean Corpuscular Hemoglobin 32 pg (25-35) Mean Corpuscular Hemoglobin Concent 34 g/dL (31-37) Red Cell Distribution Width 13.9 % (11.5-14.5) Platelet Count 277 x10^3/uL (140-400) Neutrophils (%) (Auto) 91 % (31-73) Lymphocytes (%) (Auto) 8 % (24-48) Monocytes (%) (Auto) 1 % (0-9) Eosinophils (%) (Auto) 1 % (0-3) Basophils (%) (Auto) 0 % (0-3) Neutrophils # (Auto) 13.6 x10^3/uL (1.8-7.7) Lymphocytes # (Auto) 1.2 x10^3/uL (1.0-4.8) Monocytes # (Auto) 0.1 x10^3/uL (0.0-1.1) Eosinophils # (Auto) 0.1 x10^3/uL (0.0-0.7) Basophils # (Auto) 0.0 x10^3/uL (0.0-0.2) Sodium Level 139 mmol/L (136-145) Potassium Level 3.5 mmol/L (3.5-5.1) Chloride Level 101 mmol/L (98-107) Carbon Dioxide Level 24 mmol/L (21-32) Anion Gap 14 (6-14) Blood Urea Nitrogen 60 mg/dL (8-26) Creatinine 3.4 mg/dL (0.7-1.3) Estimated GFR (Cockcroft-Gault) 18.2 BUN/Creatinine Ratio 18 (6-20) Glucose Level 89 mg/dL (70-99) Calcium Level 7.7 mg/dL (8.5-10.1) Total Bilirubin 2.1 mg/dL (0.2-1.0) Aspartate Amino Transf (AST/SGOT) 79 U/L (15-37) Alanine Aminotransferase (ALT/SGPT) 23 U/L (16-63) Alkaline Phosphatase 61 U/L (46-116) Total Protein 4.9 g/dL (6.4-8.2) Albumin 2.1 g/dL (3.4-5.0) Albumin/Globulin Ratio 0.8 (1.0-1.7) O2 Saturation 97 % (92-99) Arterial Blood pH 7.41 (7.35-7.45) Arterial Blood pCO2 at Patient Temp 35 mmHg (35-46) Arterial Blood pO2 at Patient Temp 101 mmHg (65-108) Arterial Blood HCO3 21 mmol/L (21-28) Arterial Blood Base Excess -3 mmol/L (-3-3) FiO2 50% Test 08/01/19 08:15 Heparin Anti-Xa Act, Unfractionated 0.13 IU/mL (0.30-0.70) Results All relevant outside records, renal labs, imaging studies, telemetry/EKG's were reviewed. STEPHANE CHAWLA MD Aug 01, 2019 12:06
[2019-08-01] MEDS: HEPARIN 25,000UTS/250ML PREMIX 250 ML IV PRN (12:11)
--- NOTE | 2019-08-01 16:15 | PDOC ---
PROGRESS NOTES Subjective Subjective Intubated and sedated Objective Objective Vital Signs Date Time Temp Pulse Resp B/P (MAP) Pulse Ox O2 Delivery O2 Flow Rate FiO2 08/01/19 16:00 99.8 103 14 119/59 (79) 97 Ventilator 99.8 Intake and Output 08/01/19 07:00 Intake Total 4771.4 ml Output Total 137 ml Balance 4634.4 ml Intake IV Total 2864.4 ml Tube Feeding 1307 ml Other 600 ml Output Urine Total 137 ml Physical Exam Abdomen: Soft Heart: Other (heart rate is irregular) Extremities: No cyanosis, Other (ischemic right 4th toe) General: Other (sedated) HEENT: Atraumatic Lungs: Other (vent, intubated) Psych/Mental Status: Other (sedated) Skin: Other (right 4th toe lesion) Assessment Assessment 1. Acute respiratory hypercapnic respiratory failure with Pneumonia, flu and possible COPD s/p intubation. Continue vent management per pulmonary team. 2. Flu A 3. Sepsis with UTI/pneumonia: Continue antibiotics 4. Pneumonia 5. SONIA: Per nephrology team 6. AFIB RVR: chronic per report. Heart rate is relatively well controlled with Cardizem infusion. Continue heparin infusion per protocol. 7. Mildly elevated troponin: peaked at 0.11. Demand mediated with culprits above. 2-D echo showed normal LV systolic function. 8. Metabolic/hypoxic encephalopathy 9. Noncompliance: limited financial constraints. Does not take any routine meds. 10. Severe PAD: ischemia to right foot with grayish 4th toe possibly cardioemboli. Vascular surgery has been consulted 11. Noncompliance: no noted home medications 12. Homelessness 13. Tobaccoism Plan Plan of Care Problems Medical Problems: (1) Altered mental status Status: Acute Comment Review of Relevant I have reviewed the following items hay (where applicable) has been applied. Labs Laboratory Tests Test 07/31/19 22:20 08/01/19 05:15 08/01/19 07:15 08/01/19 08:15 Heparin Anti-Xa Act, Unfractionated < 0.10 IU/mL (0.30-0.70) 0.13 IU/mL (0.30-0.70) White Blood Count 15.0 x10^3/uL (4.0-11.0) Red Blood Count 3.68 x10^6/uL (4.30-5.70) Hemoglobin 11.8 g/dL (13.0-17.5) Hematocrit 35.2 % (39.0-53.0) Mean Corpuscular Volume 96 fL (79-100) Mean Corpuscular Hemoglobin 32 pg (25-35) Mean Corpuscular Hemoglobin Concent 34 g/dL (31-37) Red Cell Distribution Width 13.9 % (11.5-14.5) Platelet Count 277 x10^3/uL (140-400) Neutrophils (%) (Auto) 91 % (31-73) Lymphocytes (%) (Auto) 8 % (24-48) Monocytes (%) (Auto) 1 % (0-9) Eosinophils (%) (Auto) 1 % (0-3) Basophils (%) (Auto) 0 % (0-3) Neutrophils # (Auto) 13.6 x10^3/uL (1.8-7.7) Lymphocytes # (Auto) 1.2 x10^3/uL (1.0-4.8) Monocytes # (Auto) 0.1 x10^3/uL (0.0-1.1) Eosinophils # (Auto) 0.1 x10^3/uL (0.0-0.7) Basophils # (Auto) 0.0 x10^3/uL (0.0-0.2) Sodium Level 139 mmol/L (136-145) Potassium Level 3.5 mmol/L (3.5-5.1) Chloride Level 101 mmol/L (98-107) Carbon Dioxide Level 24 mmol/L (21-32) Anion Gap 14 (6-14) Blood Urea Nitrogen 60 mg/dL (8-26) Creatinine 3.4 mg/dL (0.7-1.3) Estimated GFR (Cockcroft-Gault) 18.2 BUN/Creatinine Ratio 18 (6-20) Glucose Level 89 mg/dL (70-99) Calcium Level 7.7 mg/dL (8.5-10.1) Total Bilirubin 2.1 mg/dL (0.2-1.0) Aspartate Amino Transf (AST/SGOT) 79 U/L (15-37) Alanine Aminotransferase (ALT/SGPT) 23 U/L (16-63) Alkaline Phosphatase 61 U/L (46-116) Total Protein 4.9 g/dL (6.4-8.2) Albumin 2.1 g/dL (3.4-5.0) Albumin/Globulin Ratio 0.8 (1.0-1.7) O2 Saturation 97 % (92-99) Arterial Blood pH 7.41 (7.35-7.45) Arterial Blood pCO2 at Patient Temp 35 mmHg (35-46) Arterial Blood pO2 at Patient Temp 101 mmHg (65-108) Arterial Blood HCO3 21 mmol/L (21-28) Arterial Blood Base Excess -3 mmol/L (-3-3) FiO2 50% Test 08/01/19 15:00 Heparin Anti-Xa Act, Unfractionated 0.16 IU/mL (0.30-0.70) Microbiology 07/30/19 Blood Culture - Final, Complete Medications Current Medications Daptomycin 490 mg/ Sodium Chloride 50 ml @ 100 mls/hr Q48H IV Last administered on 08/01/19at 10:36; Start 08/01/19 at 10:00 Famotidine (Pepcid Vial) 20 mg BID IVP ; Start 07/31/19 at 21:00; Status UNV Famotidine (Pepcid Vial) 20 mg QHS IVP Last administered on 07/31/19at 21:16; Start 07/31/19 at 21:00 Furosemide (Lasix) 40 mg 1X ONCE IVP ; Start 08/01/19 at 22:30; Stop 08/01/19 at 22:31 Thiamine HCl 100 mg/Dextrose 51 ml @ 102 mls/hr DAILY IV Last administered on 08/01/19at 08:57; Start 07/31/19 at 17:00 Vancomycin HCl (Vancomycin Trough Level) 1 each 1X ONCE MC ; Start 08/01/19 at 07:30; Stop 08/01/19 at 07:31; Status Cancel Vitamin A/Vitamin D (Vitamin A & D Ointment) 1 milton PRN Q1HR PRN TP SKIN PROTECTION; Start 07/31/19 at 16:45 Vitals/I & O Vital Sign - Last 24 Hours 07/31/19 07/31/19 07/31/19 07/31/19 16:51 17:00 18:00 19:00 Temp 100.2 100.2 Pulse 105 104 107 Resp 16 16 16 B/P (MAP) 98/57 (71) 104/52 (69) 108/63 (78) Pulse Ox 92 94 96 96 O2 Delivery Ventilator Ventilator Ventilator Ventilator 07/31/19 07/31/19 07/31/19 07/31/19 20:00 20:00 20:50 21:00 Temp 100.2 100.2 Pulse 112 110 Resp 16 16 B/P (MAP) 112/59 (76) 136/64 (88) Pulse Ox 97 93 96 O2 Delivery Ventilator Mechanical Ventilator Ventilator Ventilator 07/31/19 07/31/19 07/31/19 08/01/19 22:00 22:09 23:00 00:00 Temp 101.2 101.2 Pulse 110 107 105 Resp 16 16 16 B/P (MAP) 124/59 (80) 99/51 (67) 112/52 (72) Pulse Ox 96 93 97 98 O2 Delivery Ventilator Ventilator Ventilator Ventilator 08/01/19 08/01/19 08/01/19 08/01/19 00:00 00:31 01:00 02:00 Pulse 103 105 Resp 16 16 B/P (MAP) 123/54 (77) 112/53 (72) Pulse Ox 96 98 98 O2 Delivery Mechanical Ventilator Ventilator Ventilator Ventilator 08/01/19 08/01/19 08/01/19 08/01/19 03:00 03:06 04:00 04:00 Temp 101.3 101.3 Pulse 104 106 Resp 16 16 B/P (MAP) 119/56 (77) 124/58 (80) Pulse Ox 98 96 98 O2 Delivery Ventilator Ventilator Mechanical Ventilator Ventilator 08/01/19 08/01/19 08/01/19 08/01/19 05:00 05:44 06:00 07:00 Pulse 108 109 109 Resp 16 16 16 B/P (MAP) 128/62 (84) 118/53 (74) 110/56 (74) Pulse Ox 98 96 98 96 O2 Delivery Ventilator Ventilator Ventilator Ventilator 08/01/19 08/01/19 08/01/19 08/01/19 07:07 08:00 08:00 08:34 Temp 100.0 100.0 Pulse 106 Resp 16 B/P (MAP) 111/55 (73) Pulse Ox 97 97 96 O2 Delivery Ventilator Mechanical Ventilator Ventilator Ventilator 08/01/19 08/01/19 08/01/19 08/01/19 09:00 10:00 11:00 11:30 Pulse 111 108 105 Resp 14 14 14 B/P (MAP) 114/56 (75) 116/56 (76) 130/59 (82) Pulse Ox 96 97 98 98 O2 Delivery Ventilator Ventilator Ventilator Ventilator 08/01/19 08/01/19 08/01/19 08/01/19 11:57 12:00 13:00 14:00 Temp 100.0 100.0 Pulse 109 101 104 Resp 14 14 14 B/P (MAP) 126/63 (84) 119/63 (81) 122/62 (82) Pulse Ox 97 98 98 O2 Delivery Mechanical Ventilator Ventilator Ventilator Ventilator 08/01/19 08/01/19 08/01/19 08/01/19 15:00 15:04 15:47 16:00 Temp 99.8 99.8 Pulse 106 103 Resp 14 14 B/P (MAP) 128/60 (82) 119/59 (79) Pulse Ox 98 98 97 O2 Delivery Ventilator Ventilator Mechanical Ventilator Ventilator Intake and Output 07/31/19 07/31/19 08/01/19 15:00 23:00 07:00 Intake Total 1000 ml 2165 ml 1606.4 ml Output Total 73 ml 29 ml 35 ml Balance 927 ml 2136 ml 1571.4 ml ISAURA CORTES MD Aug 01, 2019 16:15
[2019-08-01] MEDS: FAMOTIDINE 20 MG/2 ML VIAL IVP SCH (20:46)
[2019-08-01] MEDS ORDERED: FUROSEMIDE 40 MG/4 ML VIAL. IVP ONE (22:30)
[2019-08-01] MEDS ORDERED: POTASSIUM BICARB 20 MEQ EFFERVESCENT TABLET. PEG ONE (22:30)
[2019-08-02] VITALS (24 sets, daily range): BP systolic 94–135; BP diastolic 48–68
[2019-08-02] MEDS: MIDAZOLAM HCL 50 MG in IV NORMAL SALINE 50ML 50 ML IV PRN ×2 (01:32→15:39)
[2019-08-02] MEDS: HEPARIN 25,000UTS/250ML PREMIX 250 ML IV PRN ×3 (01:33→21:18)
[2019-08-02] MEDS: IPRATRPIUM/ALBUTEROL 0.5/2.5MG 3 ML NEBU. NEB SCH ×7 (04:00→23:00)
[2019-08-02 05:53] LABS: BASO % 0 % (0-3); EOS # 0.2 x10^3/uL (0.0-0.7); EOS % 2 % (0-3); HEMATOCRIT 33.4 % (39.0-53.0); HEMOGLOBIN 11.2 g/dL (13.0-17.5); LYMPH # 1.2 x10^3/uL (1.0-4.8); LYMPH % 8 % (24-48); MEAN CORPUSCULAR HEMOGLOBIN 32 pg (25-35); MEAN CORPUSCULAR HGB CONC 34 g/dL (31-37); MEAN CORPUSCULAR VOLUME 96 fL (79-100); MONO # 0.2 x10^3/uL (0.0-1.1); MONO % 2 % (0-9); NEUT # 13.9 x10^3/uL (1.8-7.7); NEUT % 89 % (31-73); PLATELET COUNT 251 x10^3/uL (140-400); RED BLOOD COUNT 3.49 x10^6/uL (4.30-5.70); WHITE BLOOD COUNT 15.7 x10^3/uL (4.0-11.0)
[2019-08-02 06:13] LABS: ALBUMIN 2.5 g/dL (3.4-5.0); ALBUMIN/GLOBULIN RATIO 0.9 (1.0-1.7); CALCIUM 7.5 mg/dL (8.5-10.1); CREATININE 4.5 mg/dL (0.7-1.3); GFR 13.2; POTASSIUM 3.6 mmol/L (3.5-5.1); TOTAL BILIRUBIN 2.3 mg/dL (0.2-1.0); TOTAL PROTEIN 5.3 g/dL (6.4-8.2)
[2019-08-02] MEDS: MICAFUNGIN 100 MG in IV DEXTROSE 5% 100ML 100 ML IV SCH (07:06)
[2019-08-02 07:27] LABS: BASE EXCESS ABG -3 mmol/L (-3-3); HCO3 ABG 22 mmol/L (21-28); PCO2 ABG 38 mmHg (35-46); PO2 ABG 94 mmHg (65-108); SAT O2 ABG 97 % (92-99)
[2019-08-02 07:28] LABS: FIO2 ABG 40%
--- NOTE | 2019-08-02 08:26 | RAD ---
PORTABLE CHEST 1V INDICATION: Respiratory failure. COMPARISON STUDY: 08/01/2019. FINDINGS: Life Support Devices: Stable endotracheal tube, enteric tube, and right IJ central venous catheter. Lungs: Low lung volume. Bilateral perihilar and basilar heterogeneous opacities, slightly improved on the right. Stable pulmonary vasculature. Pleura: Stable small bilateral pleural effusions. Heart and Mediastinum: Stable cardiomediastinal silhouette and great vessels. IMPRESSION: 1. Stable life support devices. 2. Bilateral perihilar and basilar opacities, slightly improved on the right. 3. Stable small bilateral effusions. Electronically signed by: Duglas Donahue MD (08/02/2019 8:23 AM) [id number]
--- NOTE | 2019-08-02 08:35 | PDOC ---
SUBJECTIVE ROS Follow-up for acute kidney injury, ATN Patient remains sedated and intubated on the vent urine output has been minimal. thick secretions from ETT OBJECTIVE Vital Signs Vital Signs Date Time Temp Pulse Resp B/P (MAP) Pulse Ox O2 Delivery O2 Flow Rate FiO2 08/02/19 08:00 Mechanical Ventilator 08/02/19 07:17 97 08/02/19 06:00 88 14 117/64 (81) 08/02/19 04:00 99.3 99.3 I & 0 Intake and Output 08/02/19 07:00 Intake Total 1270 ml Output Total 640 ml Balance 630 ml Intake IV Total 1270 ml Output Urine Total 215 ml Gastric Drainage Total 425 ml PHYSICAL EXAM Physical Exam GEN: sedated intubated on the vent EYES: , Conjunctiva Normal, sclera anicteric EN: No EN Drainage, Mucous Membranes moist, orally intubated NECK: no JVD, min JVP, Supple, no Thyromegaly CVS: S1S2, ? Murmur, No Gallop, No Rub, no Edema RESP: few Rales, no Rhonchi,no Acc. Muscle Use GI: BS + ve, NO Bruit, Non Tender, Non Distended : no CVA tenderness, no Suprapubic Tenderness Assessment & Plan ARF: Possible ATN: Patient remains oligo anuric at this time. We'll proceed with hemodialysis in the a.m. Hypoalbuminemia: Suspect malnutrition, IV albumin as ordered Oligo anuria: IV Lasix will be ordered after albumin is down to see if this can elicit the urinary response Hypokalemia: Appears to have been replaced. Replace as needed for potassium less than 3.5. Nonoliguric state will not be aggressive with placement of this time hypocalcemia: Appropriate for low albumin Respiratory failure: Patient on the ventilator defer to Dr. Bowden. Influenza A is positive, Peak Pressures are acceptable COMMENT/RELEVANT DATA Meds Current Medications Medications (Trade) Dose Ordered Sig/[place] Start Time Stop Time Status Last Admin Dose Admin Acetaminophen (Tylenol Supp) 650 mg 1X ONCE 07/30/19 20:15 07/30/19 20:16 DC 07/30/19 20:49 650 MG Acetaminophen (Tylenol) 650 mg PRN Q4HRS PRN 07/30/19 20:30 07/31/19 20:29 DC 2/28/20 12:49 650 MG Albumin Human 100 ml @ 100 mls/hr TID 07/31/19 14:30 08/02/19 09:59 08/01/19 20:45 100 MLS/HR Albuterol Sulfate (Ventolin Neb Soln) 10 mg 1X ONCE 07/30/19 18:00 07/30/19 18:01 DC 07/30/19 18:00 10 MG Albuterol/ Ipratropium (Duoneb) 3 ml Q4HRS 07/31/19 04:00 08/02/19 07:17 3 ML Amiodarone HCl 150 mg/Dextrose 103 ml @ 618 mls/hr 1X ONCE 07/30/19 18:45 07/30/19 18:54 DC 07/30/19 20:07 618 MLS/HR Amiodarone HCl 450 mg/Dextrose 259 ml @ 0 mls/hr CONT PRN 07/30/19 18:45 07/30/19 20:21 33.3 MLS/HR Bisacodyl (Dulcolax Supp) 10 mg PRN DAILY PRN 07/31/19 15:00 Chlorhexidine Gluconate (Peridex) 15 ml BID 07/30/19 21:00 08/01/19 20:46 15 ML Daptomycin 490 mg/ Sodium Chloride 50 ml @ 100 mls/hr Q48H 08/01/19 10:00 08/01/19 10:36 100 MLS/HR Digoxin (Lanoxin) 250 mcg 1X ONCE 07/31/19 00:30 07/31/19 00:31 DC 07/31/19 00:12 250 MCG Diltiazem HCl (Cardizem Iv Push) 10 mg 1X ONCE 07/30/19 18:00 07/30/19 18:01 DC 07/30/19 18:01 10 MG Diltiazem HCl 125 mg/Sodium Chloride 125 ml @ 5 mls/hr CONT PRN 07/31/19 01:00 08/01/19 03:03 5 MLS/HR Dobutamine HCl/ Dextrose 250 ml @ 0 mls/hr CONT PRN 07/31/19 15:00 UNV Etomidate (Amidate) 20 mg 1X ONCE 07/30/19 23:45 07/30/19 23:46 DC 07/30/19 19:27 20 MG Famotidine (Pepcid Vial) 20 mg BID 07/31/19 21:00 UNV Fentanyl Citrate 30 ml @ 0 mls/hr CONT PRN 07/31/19 00:15 08/01/19 20:48 1.25 MLS/HR Fentanyl Citrate (Fentanyl 2ml Vial) 50 mcg PRN Q1HR PRN 07/30/19 19:15 07/31/19 00:11 DC Furosemide (Lasix) 40 mg 1X ONCE 08/01/19 22:30 08/01/19 22:31 DC 08/01/19 22:14 40 MG Heparin Sodium (Porcine) (Heparin Sodium) 2,200 unit PRN Q6HRS PRN 07/30/19 20:45 08/01/19 15:42 2,200 UNIT Heparin Sodium/ Dextrose 250 ml @ 0 mls/hr CONT PRN 07/31/19 00:00 UNV Info (Anti-Coagulation Monitoring By Pharmacy) 1 each PRN DAILY PRN 07/30/19 21:00 07/31/19 13:57 1 EACH Linezolid/Dextrose 300 ml @ 300 mls/hr Q12HR 07/31/19 09:00 08/01/19 20:46 300 MLS/HR Lorazepam (Ativan Inj) 2 mg STK-MED ONCE 07/30/19 18:14 07/30/19 18:14 DC Meropenem 1 gm/ Sodium Chloride 100 ml @ 200 mls/hr Q12HR 07/31/19 09:00 08/01/19 20:45 200 MLS/HR Micafungin Sodium 100 mg/Dextrose 100 ml @ 100 mls/hr Q24H 07/31/19 08:00 08/02/19 07:06 100 MLS/HR Midazolam HCl 50 mg/Sodium Chloride 50 ml @ 0 mls/hr CONT PRN 07/31/19 00:15 08/02/19 01:32 5 MLS/HR Morphine Sulfate (Morphine Sulfate) 4 mg PRN Q1HR PRN 07/30/19 19:15 07/31/19 00:11 DC Norepinephrine Bitartrate 8 mg/ Dextrose 258 ml @ 0 mls/hr CONT PRN 07/30/19 19:00 07/31/19 08:04 DC Ondansetron HCl (Zofran) 4 mg PRN Q6HRS PRN 07/31/19 15:00 Oseltamivir Phosphate (Tamiflu) 30 mg BID 07/31/19 09:00 08/05/19 08:59 08/01/19 20:46 30 MG Piperacillin Sod/ Tazobactam Sod 4.5 gm/Sodium Chloride 100 ml @ 200 mls/hr 1X ONCE 07/30/19 19:00 07/31/19 08:04 DC 07/30/19 19:06 200 MLS/HR Potassium Bicarbonate (Potassium Effervescent Tablet) 20 meq 1X ONCE 08/01/19 22:30 08/01/19 22:31 DC 08/01/19 22:14 20 MEQ Potassium Chloride/Water 100 ml @ 100 mls/hr Q1H 07/30/19 19:30 07/30/19 21:29 DC 07/30/19 21:31 100 MLS/HR Prochlorperazine (Compazine) 25 mg PRN Q12HR PRN 07/31/19 15:00 Rocuronium [place] (Zemuron) 50 mg 1X ONCE 07/30/19 23:45 07/30/19 23:46 DC 07/30/19 19:28 50 MG Sodium Bicarbonate 100 meq/Dextrose 1,100 ml @ 75 mls/hr 1X ONCE 07/30/19 23:00 07/31/19 13:39 DC 07/31/19 01:54 75 MLS/HR Sodium Chloride (Normal Saline Flush) 3 ml QSHIFT PRN 07/31/19 15:00 Thiamine HCl 100 mg/Dextrose 51 ml @ 102 mls/hr DAILY 07/31/19 17:00 08/01/19 08:57 102 MLS/HR Vancomycin HCl (Vanco Per Pharmacy) 1 each PRN DAILY PRN 07/31/19 02:30 07/31/19 08:06 DC 07/31/19 03:30 1 EACH Vancomycin HCl (Vancomycin Trough Level) 1 each 1X ONCE 08/01/19 07:30 08/01/19 07:31 Cancel Vancomycin HCl 1.25 gm/Sodium Chloride 250 ml @ 167 mls/hr Q12H 07/31/19 08:00 07/31/19 08:06 DC 07/31/19 07:57 167 MLS/HR Vancomycin HCl 2 gm/Sodium Chloride 500 ml @ 250 mls/hr 1X ONCE 07/30/19 19:15 07/30/19 21:14 DC 07/30/19 20:15 250 MLS/HR Vitamin A/Vitamin D (Vitamin A & D Ointment) 1 [place] PRN Q1HR PRN 07/31/19 16:45 Lab Laboratory Tests Test 08/01/19 15:00 08/01/19 22:20 08/02/19 05:00 08/02/19 07:20 Heparin Anti-Xa Act, Unfractionated 0.16 IU/mL (0.30-0.70) 0.26 IU/mL (0.30-0.70) White Blood Count 15.7 x10^3/uL (4.0-11.0) Red Blood Count 3.49 x10^6/uL (4.30-5.70) Hemoglobin 11.2 g/dL (13.0-17.5) Hematocrit 33.4 % (39.0-53.0) Mean Corpuscular Volume 96 fL (79-100) Mean Corpuscular Hemoglobin 32 pg (25-35) Mean Corpuscular Hemoglobin Concent 34 g/dL (31-37) Red Cell Distribution Width 14.0 % (11.5-14.5) Platelet Count 251 x10^3/uL (140-400) Neutrophils (%) (Auto) 89 % (31-73) Lymphocytes (%) (Auto) 8 % (24-48) Monocytes (%) (Auto) 2 % (0-9) Eosinophils (%) (Auto) 2 % (0-3) Basophils (%) (Auto) 0 % (0-3) Neutrophils # (Auto) 13.9 x10^3/uL (1.8-7.7) Lymphocytes # (Auto) 1.2 x10^3/uL (1.0-4.8) Monocytes # (Auto) 0.2 x10^3/uL (0.0-1.1) Eosinophils # (Auto) 0.2 x10^3/uL (0.0-0.7) Basophils # (Auto) 0.0 x10^3/uL (0.0-0.2) Sodium Level 136 mmol/L (136-145) Potassium Level 3.6 mmol/L (3.5-5.1) Chloride Level 99 mmol/L (98-107) Carbon Dioxide Level 23 mmol/L (21-32) Anion Gap 14 (6-14) Blood Urea Nitrogen 81 mg/dL (8-26) Creatinine 4.5 mg/dL (0.7-1.3) Estimated GFR (Cockcroft-Gault) 13.2 BUN/Creatinine Ratio 18 (6-20) Glucose Level 89 mg/dL (70-99) Calcium Level 7.5 mg/dL (8.5-10.1) Total Bilirubin 2.3 mg/dL (0.2-1.0) Aspartate Amino Transf (AST/SGOT) 66 U/L (15-37) Alanine Aminotransferase (ALT/SGPT) 21 U/L (16-63) Alkaline Phosphatase 58 U/L (46-116) Total Protein 5.3 g/dL (6.4-8.2) Albumin 2.5 g/dL (3.4-5.0) Albumin/Globulin Ratio 0.9 (1.0-1.7) O2 Saturation 97 % (92-99) Arterial Blood pH 7.37 (7.35-7.45) Arterial Blood pCO2 at Patient Temp 38 mmHg (35-46) Arterial Blood pO2 at Patient Temp 94 mmHg (65-108) Arterial Blood HCO3 22 mmol/L (21-28) Arterial Blood Base Excess -3 mmol/L (-3-3) FiO2 40% Test 08/02/19 07:25 Heparin Anti-Xa Act, Unfractionated 0.25 IU/mL (0.30-0.70) Results All relevant outside records, renal labs, imaging studies, telemetry/EKG's were reviewed. Other Life Support Devices: Stable endotracheal tube, enteric tube, and right IJ central venous catheter. Lungs: Low lung volume. Bilateral perihilar and basilar heterogeneous opacities, slightly improved on the right. Stable pulmonary vasculature. Pleura: Stable small bilateral pleural effusions. Heart and Mediastinum: Stable cardiomediastinal silhouette and great vessels. IMPRESSION: 1. Stable life support devices. 2. Bilateral perihilar and basilar opacities, slightly improved on the right. 3. Stable small bilateral effusions. STEPHANE CHAWLA MD Aug 02, 2019 08:35
--- NOTE | 2019-08-02 08:44 | PDOC ---
Infectious Disease Note Subjective Subjective Orally intubated/vent and sedated FiO2 40% down from 45%, SpO2 96% Fevers Tmax 101.4 UO low ROS ROS unobtainable Vital Sign Vital Signs Vital Signs Date Time Temp Pulse Resp B/P (MAP) Pulse Ox O2 Delivery O2 Flow Rate FiO2 08/02/19 08:00 Mechanical Ventilator 08/02/19 07:17 97 08/02/19 06:00 88 14 117/64 (81) 08/02/19 04:00 99.3 99.3 Physical Exam PHYSICAL EXAM GENERAL: Sedated, orally intubated/vent HEENT: Pupils equal, ETT and OGT in place. NECK: Supple. LUNGS: Diminished aeration bases HEART: S1, S2, irregular rhythm. ABDOMEN: Obese, soft, mildly distended : Valladares in place, scrotal swelling, erythema, EXTREMITIES: Ischemic changes right foot; Left foot pink. Rooke boots bilaterally DERMATOLOGIC: No generalized rash. NEUROLOGIC: Sedated and intubated. RIJ without signs of complications PIVs Labs Lab Laboratory Tests Test 08/01/19 15:00 08/01/19 22:20 08/02/19 05:00 08/02/19 07:20 Heparin Anti-Xa Act, Unfractionated 0.16 IU/mL (0.30-0.70) 0.26 IU/mL (0.30-0.70) White Blood Count 15.7 x10^3/uL (4.0-11.0) Red Blood Count 3.49 x10^6/uL (4.30-5.70) Hemoglobin 11.2 g/dL (13.0-17.5) Hematocrit 33.4 % (39.0-53.0) Mean Corpuscular Volume 96 fL (79-100) Mean Corpuscular Hemoglobin 32 pg (25-35) Mean Corpuscular Hemoglobin Concent 34 g/dL (31-37) Red Cell Distribution Width 14.0 % (11.5-14.5) Platelet Count 251 x10^3/uL (140-400) Neutrophils (%) (Auto) 89 % (31-73) Lymphocytes (%) (Auto) 8 % (24-48) Monocytes (%) (Auto) 2 % (0-9) Eosinophils (%) (Auto) 2 % (0-3) Basophils (%) (Auto) 0 % (0-3) Neutrophils # (Auto) 13.9 x10^3/uL (1.8-7.7) Lymphocytes # (Auto) 1.2 x10^3/uL (1.0-4.8) Monocytes # (Auto) 0.2 x10^3/uL (0.0-1.1) Eosinophils # (Auto) 0.2 x10^3/uL (0.0-0.7) Basophils # (Auto) 0.0 x10^3/uL (0.0-0.2) Sodium Level 136 mmol/L (136-145) Potassium Level 3.6 mmol/L (3.5-5.1) Chloride Level 99 mmol/L (98-107) Carbon Dioxide Level 23 mmol/L (21-32) Anion Gap 14 (6-14) Blood Urea Nitrogen 81 mg/dL (8-26) Creatinine 4.5 mg/dL (0.7-1.3) Estimated GFR (Cockcroft-Gault) 13.2 BUN/Creatinine Ratio 18 (6-20) Glucose Level 89 mg/dL (70-99) Calcium Level 7.5 mg/dL (8.5-10.1) Total Bilirubin 2.3 mg/dL (0.2-1.0) Aspartate Amino Transf (AST/SGOT) 66 U/L (15-37) Alanine Aminotransferase (ALT/SGPT) 21 U/L (16-63) Alkaline Phosphatase 58 U/L (46-116) Total Protein 5.3 g/dL (6.4-8.2) Albumin 2.5 g/dL (3.4-5.0) Albumin/Globulin Ratio 0.9 (1.0-1.7) O2 Saturation 97 % (92-99) Arterial Blood pH 7.37 (7.35-7.45) Arterial Blood pCO2 at Patient Temp 38 mmHg (35-46) Arterial Blood pO2 at Patient Temp 94 mmHg (65-108) Arterial Blood HCO3 22 mmol/L (21-28) Arterial Blood Base Excess -3 mmol/L (-3-3) FiO2 40% Test 08/02/19 07:25 Heparin Anti-Xa Act, Unfractionated 0.25 IU/mL (0.30-0.70) TTE, 07/31 <Conclusion> The left ventricular systolic function is normal. The ejection fraction is 55-60%. Trace mitral regurgitation. Trace tricuspid regurgitation with an estimated PAP of 27 mmHg. There is no evidence of significant pericardial effusion. Micro 07/30. BLOOD CULTURE Final GRAM POSITIVE COCCI, IN SINGLES, PAIRS AND CHAINS, IN 4 OF 4 BOTTLES, TWO SETS DRAWN ON 07/30/19. CALLED TO KAYLEIGH BROWN RN IN ICU AT 8:40 ON 08/01/19 DW MT BLOOD CULTURE Preliminary NO GROWTH AFTER 1 DAY 07/31. GRAM STAIN RESULT 1 Final Few gram positive cocci GRAM STAIN RESULT 2 Final Few gram positive rods. SPUTUM CULTURE-LC PENDING 07/30. URINE CULTURE RES 1 Final Mixed urogenital jany Objective Assessment Septic shock procalcitonin 25.26 GPC in chains/pairs bacteremia, (4 of 4 bottles), 07/30 ? source. -Repeat BC neg to date. TTE (07/31) no evidence veg Influenza A, respiratory tract infection. Acute hypoxic respiratory failure with pneumonia, status post intubation. 07/31. GPC & GPR on gram stain. culture in process Encephalopathy. Lactic acidosis. Acute kidney injury Hyperbilirubinemia. LFT elevation. High troponin. Atrial fibrillation with rapid ventricular response, on amiodarone. Severe peripheral vascular disease, right foot ischemia Homelessness. Groin dermatitis. Tinea Plan Plan of Care Daptomycin, Merrem, Zyvox and micafungin Tamiflu renally dosed Follow up labs and cultures Repeat BC neg to date Maintain aspiration precautions Droplet precautions Dialysis plans underway D/w Dr. Jonnie Xavier Critically ill Prognosis poor Attending Co-Sign Attending Co-Sign The patient was seen and examined at the bedside. The chart was reviewed. The case was discussed with [employer]. Continue current treatment . Condition critical EVELINA CORREA APRN Aug 02, 2019 08:44 YURI XAVIER MD Aug 02, 2019 10:43
[2019-08-02] MEDS: MEROPENEM 1 GM in IV NORMAL SALINE 100ML 100 ML IV SCH ×2 (08:53→21:11)
[2019-08-02] MEDS: THIAMINE INJ 100 MG in IV DEXTROSE 5% 50 ML IV SCH (08:53)
--- NOTE | 2019-08-02 09:23 | PDOC ---
PROGRESS NOTES Subjective Subjective Intubated and sedated Objective Objective Vital Signs Date Time Temp Pulse Resp B/P (MAP) Pulse Ox O2 Delivery O2 Flow Rate FiO2 08/02/19 09:10 97 Ventilator 08/02/19 09:00 84 14 119/68 (85) 08/02/19 08:00 99.0 99.0 Intake and Output 08/02/19 07:00 Intake Total 1270 ml Output Total 640 ml Balance 630 ml Intake IV Total 1270 ml Output Urine Total 215 ml Gastric Drainage Total 425 ml Physical Exam Abdomen: Soft Heart: Other (heart rate is irregular) Extremities: No cyanosis, Other (ischemic right 4th toe) General: Other (sedated) HEENT: Atraumatic Lungs: Other (vent, intubated) Psych/Mental Status: Other (sedated) Skin: Other (right 4th toe lesion) Assessment Assessment 1. Acute respiratory hypercapnic respiratory failure with Pneumonia, flu and possible COPD s/p intubation. Continue vent management per pulmonary team. 2. Flu A 3. Sepsis with UTI/pneumonia: Continue antibiotics 4. Pneumonia 5. SONIA: Per nephrology team 6. AFIB RVR: chronic per report. Heart rate is relatively well controlled with Cardizem infusion. Continue heparin infusion per protocol. 7. Mildly elevated troponin: peaked at 0.11. Demand mediated with culprits above. 2-D echo showed normal LV systolic function. 8. Metabolic/hypoxic encephalopathy 9. Noncompliance: limited financial constraints. Does not take any routine meds. 10. Severe PAD: ischemia to right foot with grayish 4th toe possibly cardioemboli. Vascular surgery following 11. Noncompliance: no noted home medications 12. Homelessness 13. Tobaccoism Plan Plan of Care Problems Medical Problems: (1) Altered mental status Status: Acute Comment Review of Relevant I have reviewed the following items hay (where applicable) has been applied. Labs Laboratory Tests Test 08/01/19 15:00 08/01/19 22:20 08/02/19 05:00 08/02/19 07:20 Heparin Anti-Xa Act, Unfractionated 0.16 IU/mL (0.30-0.70) 0.26 IU/mL (0.30-0.70) White Blood Count 15.7 x10^3/uL (4.0-11.0) Red Blood Count 3.49 x10^6/uL (4.30-5.70) Hemoglobin 11.2 g/dL (13.0-17.5) Hematocrit 33.4 % (39.0-53.0) Mean Corpuscular Volume 96 fL (79-100) Mean Corpuscular Hemoglobin 32 pg (25-35) Mean Corpuscular Hemoglobin Concent 34 g/dL (31-37) Red Cell Distribution Width 14.0 % (11.5-14.5) Platelet Count 251 x10^3/uL (140-400) Neutrophils (%) (Auto) 89 % (31-73) Lymphocytes (%) (Auto) 8 % (24-48) Monocytes (%) (Auto) 2 % (0-9) Eosinophils (%) (Auto) 2 % (0-3) Basophils (%) (Auto) 0 % (0-3) Neutrophils # (Auto) 13.9 x10^3/uL (1.8-7.7) Lymphocytes # (Auto) 1.2 x10^3/uL (1.0-4.8) Monocytes # (Auto) 0.2 x10^3/uL (0.0-1.1) Eosinophils # (Auto) 0.2 x10^3/uL (0.0-0.7) Basophils # (Auto) 0.0 x10^3/uL (0.0-0.2) Sodium Level 136 mmol/L (136-145) Potassium Level 3.6 mmol/L (3.5-5.1) Chloride Level 99 mmol/L (98-107) Carbon Dioxide Level 23 mmol/L (21-32) Anion Gap 14 (6-14) Blood Urea Nitrogen 81 mg/dL (8-26) Creatinine 4.5 mg/dL (0.7-1.3) Estimated GFR (Cockcroft-Gault) 13.2 BUN/Creatinine Ratio 18 (6-20) Glucose Level 89 mg/dL (70-99) Calcium Level 7.5 mg/dL (8.5-10.1) Total Bilirubin 2.3 mg/dL (0.2-1.0) Aspartate Amino Transf (AST/SGOT) 66 U/L (15-37) Alanine Aminotransferase (ALT/SGPT) 21 U/L (16-63) Alkaline Phosphatase 58 U/L (46-116) Total Protein 5.3 g/dL (6.4-8.2) Albumin 2.5 g/dL (3.4-5.0) Albumin/Globulin Ratio 0.9 (1.0-1.7) O2 Saturation 97 % (92-99) Arterial Blood pH 7.37 (7.35-7.45) Arterial Blood pCO2 at Patient Temp 38 mmHg (35-46) Arterial Blood pO2 at Patient Temp 94 mmHg (65-108) Arterial Blood HCO3 22 mmol/L (21-28) Arterial Blood Base Excess -3 mmol/L (-3-3) FiO2 40% Test 08/02/19 07:25 Heparin Anti-Xa Act, Unfractionated 0.25 IU/mL (0.30-0.70) Microbiology 08/01/19 Blood Culture - Preliminary, Resulted NO GROWTH AFTER 1 DAY 07/31/19 - Final, Resulted 07/31/19 - Final, Resulted 07/31/19 - Final, Resulted 07/31/19 - Final, Resulted 07/31/19 - Preliminary, Resulted 07/31/19 - Preliminary, Resulted 07/31/19 Gram Stain Evaluation - Final, Resulted 07/31/19 Sputum Culture, Resulted Pending 07/30/19 Urine Culture - Final, Complete 07/30/19 Urine Culture Result 1 (SONIA) - Final, Complete Medications Current Medications Daptomycin 490 mg/ Sodium Chloride 50 ml @ 100 mls/hr Q48H IV Last administered on 08/01/19at 10:36; Start 08/01/19 at 10:00 Furosemide (Lasix) 40 mg 1X ONCE IVP Last administered on 08/01/19at 22:14; Start 08/01/19 at 22:30; Stop 08/01/19 at 22:31; Status DC Potassium Bicarbonate (Potassium Effervescent Tablet) 20 meq 1X ONCE PEG Last administered on 08/01/19at 22:14; Start 08/01/19 at 22:30; Stop 08/01/19 at 22:31; Status DC Vitals/I & O Vital Sign - Last 24 Hours 08/01/19 08/01/19 08/01/19 08/01/19 10:00 11:00 11:30 11:57 Pulse 108 105 Resp 14 14 B/P (MAP) 116/56 (76) 130/59 (82) Pulse Ox 97 98 98 O2 Delivery Ventilator Ventilator Ventilator Mechanical Ventilator 08/01/19 08/01/19 08/01/19 08/01/19 12:00 13:00 14:00 15:00 Temp 100.0 100.0 Pulse 109 101 104 106 Resp 14 14 14 14 B/P (MAP) 126/63 (84) 119/63 (81) 122/62 (82) 128/60 (82) Pulse Ox 97 98 98 98 O2 Delivery Ventilator Ventilator Ventilator Ventilator 08/01/19 08/01/19 08/01/19 08/01/19 15:04 15:47 16:00 16:32 Temp 99.8 99.8 Pulse 103 Resp 14 B/P (MAP) 119/59 (79) Pulse Ox 98 97 97 O2 Delivery Ventilator Mechanical Ventilator Ventilator Ventilator 08/01/19 08/01/19 08/01/19 08/01/19 17:00 18:00 19:00 20:00 Pulse 104 105 106 Resp 14 14 14 B/P (MAP) 119/56 (77) 121/68 (85) 131/68 (89) Pulse Ox 96 97 97 O2 Delivery Ventilator Ventilator Ventilator Mechanical Ventilator 08/01/19 08/01/19 08/01/19 08/01/19 20:00 20:40 21:00 22:00 Temp 101.4 101.4 Pulse 134 126 115 Resp 14 14 14 B/P (MAP) 108/56 (73) 110/62 (78) 108/64 (79) Pulse Ox 97 97 97 97 O2 Delivery Ventilator Ventilator Ventilator Ventilator 08/01/19 08/02/19 08/02/19 08/02/19 23:00 00:00 00:00 00:31 Temp 99.4 99.4 Pulse 96 92 Resp 14 14 B/P (MAP) 126/57 (80) 94/48 (63) Pulse Ox 97 98 96 O2 Delivery Ventilator Mechanical Ventilator Ventilator Ventilator 08/02/19 08/02/19 08/02/19 08/02/19 01:00 02:00 02:40 03:00 Pulse 96 91 91 Resp 14 14 14 B/P (MAP) 101/50 (67) 110/53 (72) 107/50 (69) Pulse Ox 96 97 96 97 O2 Delivery Ventilator Ventilator Ventilator Ventilator 08/02/19 08/02/19 08/02/19 08/02/19 04:00 04:00 04:48 05:00 Temp 99.3 99.3 Pulse 85 90 Resp 14 14 B/P (MAP) 104/50 (68) 110/54 (72) Pulse Ox 98 97 96 O2 Delivery Mechanical Ventilator Ventilator Ventilator Ventilator 08/02/19 08/02/19 08/02/19 08/02/19 05:44 06:00 07:00 07:17 Pulse 88 89 Resp 14 14 B/P (MAP) 117/64 (81) 113/58 (76) Pulse Ox 97 97 98 97 O2 Delivery Ventilator Ventilator Ventilator Ventilator 08/02/19 08/02/19 08/02/19 08/02/19 08:00 08:00 09:00 09:10 Temp 99.0 99.0 Pulse 88 84 Resp 14 14 B/P (MAP) 118/64 (82) 119/68 (85) Pulse Ox 97 98 97 O2 Delivery Mechanical Ventilator Ventilator Ventilator Ventilator Intake and Output 08/01/19 08/01/19 08/02/19 15:00 23:00 07:00 Intake Total 401 ml 443 ml 426 ml Output Total 467 ml 18 ml 155 ml Balance -66 ml 425 ml 271 ml ISAURA CORTES MD Aug 02, 2019 09:23
[2019-08-02] MEDS: CHLORHEXIDINE 0.12% 15 ML MOUTHWASH. MM SCH ×2 (09:44→21:00)
[2019-08-02] MEDS: ALBUMIN HUMAN 25% 100 ML IV SCH (09:44)
[2019-08-02] MEDS: OSELTAMIVIR 30 MG CAPSULE PO SCH ×2 (09:44→21:16)
--- NOTE | 2019-08-02 10:52 | PDOC ---
PROGRESS NOTES History of Present Illness History of Present Illness VTE Prophylaxis Ordered VTE Prophylaxis Devices: Contraindicated VTE Pharmacological Prophylaxi: Yes Assessment/Plan Assessment/Plan impression 1. ACUTE HYPOXIC RESPIRATORY FAILURE 2. INFLUENZA A 3. Sepsis 4, PNA (pneumonia) 5. Altered mental status 6. ischemic right 4th toe 7. SONIA 8. a fib rvr 9. severe sepsis 10. homeless, self neglect due to lack of funds plan admit ICU BED CONSULT PULM CONSULT ID Daptomycin and Merrem and Tamiflu renally dosed Zyvox Micafungin, for groin dermatitis, // yeast. VENT SUPPORT CONSULT NEUROLOGY dvt prophylaxis vascular surgery FOLLOWING Nephrology consult cardiology consult cardizem drip Let the tissues demarcate and possibly areas heal. He has good circulation to both feet. Will continue heparin drip and Rooke boots. 36 min cc time Vitals Vitals Vital Signs Date Time Temp Pulse Resp B/P (MAP) Pulse Ox O2 Delivery O2 Flow Rate FiO2 08/02/19 10:00 84 14 115/68 (84) 96 Ventilator 08/02/19 08:00 99.0 99.0 Physical Exam Physical Exam GENERAL: Sedated, orally intubated/vent HEENT: Pupils equal, ETT and OGT in place. NECK: Supple. LUNGS: Diminished aeration bases HEART: S1, S2, irregular rhythm. ABDOMEN: Obese, soft, mildly distended : Valladares in place, scrotal swelling, erythema, EXTREMITIES: Ischemic changes right foot; Left foot pink. Rooke boots bilaterally DERMATOLOGIC: No generalized rash. NEUROLOGIC: Sedated and intubated. RIJ without signs of complications PIVs General: Other (sedated) Heart: Other (heart rate is irregular) Lungs: Crackles Abdomen: Soft Extremities: No cyanosis, Other (ischemic right 4th toe) Skin: Other (right 4th toe lesion) Labs LABS APPROVED REPORT EXAM: Two-dimensional and M-mode echocardiogram with Doppler and color Doppler. Other Information Quality : Average HR: 121bpm Technically limited study due to rapid heart rate INDICATION Arrhythmia Atrial Fibrillation RVR RISK FACTORS Smoking 2D DIMENSIONS RVDd 3.0 (2.9-3.5cm) Left Atrium(2D) 2.8 (1.6-4.0cm) IVSd 1.1 (0.7-1.1cm) Aortic Root(2D) 3.5 (2.0-3.7cm) LVDd 3.8 (3.9-5.9cm) LVOT Diameter 2.2 (1.8-2.4cm) PWd 1.1 (0.7-1.1cm) LVDs 2.6 (2.5-4.0cm) FS (%) 32.9 % SV 38.7 ml LVEF(%) 62.1 (>50%) Aortic Valve AoV Peak Junaid. 153.4cm/s AoV VTI 26.9cm AO Peak GR. 9.4mmHg LVOT VTI 20.91cm AO Mean GR. 11mmHg Mitral Valve MV E Velocity 62.3cm/s MV DECEL TIME 158ms MV A Velocity 52.3cm/s E/A Ratio 1.2 TDI Lateral E' P. V 8.30cm/s Medial E' P. V 9.40cm/s E/Lateral E' 7.5 E/Medial E' 6.6 Tricuspid Valve TR P. Velocity 232cm/s RAP ESTIMATE 3mmHg TR Peak Gr. 24mmHg RVSP 27mmHg Pulmonary Vein S1 Velocity 44.5cm/s S2 Velocity 50.05cm/s D2 Velocity 50.0cm/s PVa duration 72msec LEFT VENTRICLE The left ventricle is normal size. There is mild concentric left ventricular hypertrophy. The left ventricular systolic function is normal. The ejection fraction is 55-60%. Wall motion consistent with conduction abnormality. RIGHT VENTRICLE The right ventricle is normal size. There is normal right ventricular wall thickness. The right ventricular systolic function is normal. ATRIA The left atrium is borderline dilated. The right atrium size is normal. The interatrial septum is intact with no evidence for an atrial septal defect or patent foramen ovale as noted on 2-D or Doppler imaging. AORTIC VALVE The aortic valve is not well visualized. Doppler and Color Flow revealed no significant aortic regurgitation. There is no significant aortic valvular stenosis. MITRAL VALVE The mitral valve is normal in structure and function. There is no evidence of mitral valve prolapse. There is no mitral valve stenosis. Doppler and Color-flow revealed trace mitral regurgitation. TRICUSPID VALVE The tricuspid valve is normal in structure and function. Doppler and Color Flow revealed trace tricuspid regurgitation with an estimated PAP of 27 mmHg. There is no tricuspid valve stenosis. PULMONIC VALVE The pulmonic valve is not well visualized. Doppler and Color Flow revealed no pulmonic valvular regurgitation. GREAT VESSELS The aortic root is normal in size. The IVC is normal in size and collapses >50% with inspiration. PERICARDIAL EFFUSION There is no evidence of significant pericardial effusion. Critical Notification Critical Value: No <Conclusion> The left ventricular systolic function is normal. The ejection fraction is 55-60%. Trace mitral regurgitation. Trace tricuspid regurgitation with an estimated PAP of 27 mmHg. There is no evidence of significant pericardial effusion. Signed by : Isaura Kim, Electronically Approved : 07/31/2019 13:10:54 DICTATED and SIGNED BY: ISAURA KIM MD DATE: 07/31/19 1304 Laboratory Tests Test 08/01/19 15:00 08/01/19 22:20 08/02/19 05:00 08/02/19 07:20 Heparin Anti-Xa Act, Unfractionated 0.16 IU/mL (0.30-0.70) 0.26 IU/mL (0.30-0.70) White Blood Count 15.7 x10^3/uL (4.0-11.0) Red Blood Count 3.49 x10^6/uL (4.30-5.70) Hemoglobin 11.2 g/dL (13.0-17.5) Hematocrit 33.4 % (39.0-53.0) Mean Corpuscular Volume 96 fL (79-100) Mean Corpuscular Hemoglobin 32 pg (25-35) Mean Corpuscular Hemoglobin Concent 34 g/dL (31-37) Red Cell Distribution Width 14.0 % (11.5-14.5) Platelet Count 251 x10^3/uL (140-400) Neutrophils (%) (Auto) 89 % (31-73) Lymphocytes (%) (Auto) 8 % (24-48) Monocytes (%) (Auto) 2 % (0-9) Eosinophils (%) (Auto) 2 % (0-3) Basophils (%) (Auto) 0 % (0-3) Neutrophils # (Auto) 13.9 x10^3/uL (1.8-7.7) Lymphocytes # (Auto) 1.2 x10^3/uL (1.0-4.8) Monocytes # (Auto) 0.2 x10^3/uL (0.0-1.1) Eosinophils # (Auto) 0.2 x10^3/uL (0.0-0.7) Basophils # (Auto) 0.0 x10^3/uL (0.0-0.2) Sodium Level 136 mmol/L (136-145) Potassium Level 3.6 mmol/L (3.5-5.1) Chloride Level 99 mmol/L (98-107) Carbon Dioxide Level 23 mmol/L (21-32) Anion Gap 14 (6-14) Blood Urea Nitrogen 81 mg/dL (8-26) Creatinine 4.5 mg/dL (0.7-1.3) Estimated GFR (Cockcroft-Gault) 13.2 BUN/Creatinine Ratio 18 (6-20) Glucose Level 89 mg/dL (70-99) Calcium Level 7.5 mg/dL (8.5-10.1) Total Bilirubin 2.3 mg/dL (0.2-1.0) Aspartate Amino Transf (AST/SGOT) 66 U/L (15-37) Alanine Aminotransferase (ALT/SGPT) 21 U/L (16-63) Alkaline Phosphatase 58 U/L (46-116) Total Protein 5.3 g/dL (6.4-8.2) Albumin 2.5 g/dL (3.4-5.0) Albumin/Globulin Ratio 0.9 (1.0-1.7) O2 Saturation 97 % (92-99) Arterial Blood pH 7.37 (7.35-7.45) Arterial Blood pCO2 at Patient Temp 38 mmHg (35-46) Arterial Blood pO2 at Patient Temp 94 mmHg (65-108) Arterial Blood HCO3 22 mmol/L (21-28) Arterial Blood Base Excess -3 mmol/L (-3-3) FiO2 40% Test 08/02/19 07:25 Heparin Anti-Xa Act, Unfractionated 0.25 IU/mL (0.30-0.70) Assessment and Plan Assessmemt and Plan Problems Medical Problems: (1) Altered mental status Status: Acute Comment Review of Relevant I have reviewed the following items hay (where applicable) has been applied. Labs Laboratory Tests Test 07/31/19 15:00 07/31/19 22:20 2/29/20 05:15 08/01/19 07:15 Prothrombin Time 14.7 SEC (11.7-14.0) Prothromb Time International Ratio 1.2 (0.8-1.1) Activated Partial Thromboplast Time 39 SEC (24-38) Fibrinogen 755 mg/dL (200-440) D-Dimer (Arlette) 3.94 ug/mlFEU (0.00-0.50) Heparin Anti-Xa Act, Unfractionated < 0.10 IU/mL (0.30-0.70) < 0.10 IU/mL (0.30-0.70) White Blood Count 15.0 x10^3/uL (4.0-11.0) Red Blood Count 3.68 x10^6/uL (4.30-5.70) Hemoglobin 11.8 g/dL (13.0-17.5) Hematocrit 35.2 % (39.0-53.0) Mean Corpuscular Volume 96 fL (79-100) Mean Corpuscular Hemoglobin 32 pg (25-35) Mean Corpuscular Hemoglobin Concent 34 g/dL (31-37) Red Cell Distribution Width 13.9 % (11.5-14.5) Platelet Count 277 x10^3/uL (140-400) Neutrophils (%) (Auto) 91 % (31-73) Lymphocytes (%) (Auto) 8 % (24-48) Monocytes (%) (Auto) 1 % (0-9) Eosinophils (%) (Auto) 1 % (0-3) Basophils (%) (Auto) 0 % (0-3) Neutrophils # (Auto) 13.6 x10^3/uL (1.8-7.7) Lymphocytes # (Auto) 1.2 x10^3/uL (1.0-4.8) Monocytes # (Auto) 0.1 x10^3/uL (0.0-1.1) Eosinophils # (Auto) 0.1 x10^3/uL (0.0-0.7) Basophils # (Auto) 0.0 x10^3/uL (0.0-0.2) Sodium Level 139 mmol/L (136-145) Potassium Level 3.5 mmol/L (3.5-5.1) Chloride Level 101 mmol/L (98-107) Carbon Dioxide Level 24 mmol/L (21-32) Anion Gap 14 (6-14) Blood Urea Nitrogen 60 mg/dL (8-26) Creatinine 3.4 mg/dL (0.7-1.3) Estimated GFR (Cockcroft-Gault) 18.2 BUN/Creatinine Ratio 18 (6-20) Glucose Level 89 mg/dL (70-99) Calcium Level 7.7 mg/dL (8.5-10.1) Total Bilirubin 2.1 mg/dL (0.2-1.0) Aspartate Amino Transf (AST/SGOT) 79 U/L (15-37) Alanine Aminotransferase (ALT/SGPT) 23 U/L (16-63) Alkaline Phosphatase 61 U/L (46-116) Total Protein 4.9 g/dL (6.4-8.2) Albumin 2.1 g/dL (3.4-5.0) Albumin/Globulin Ratio 0.8 (1.0-1.7) O2 Saturation 97 % (92-99) Arterial Blood pH 7.41 (7.35-7.45) Arterial Blood pCO2 at Patient Temp 35 mmHg (35-46) Arterial Blood pO2 at Patient Temp 101 mmHg (65-108) Arterial Blood HCO3 21 mmol/L (21-28) Arterial Blood Base Excess -3 mmol/L (-3-3) FiO2 50% Test 08/01/19 08:15 08/01/19 15:00 08/01/19 22:20 08/02/19 05:00 Heparin Anti-Xa Act, Unfractionated 0.13 IU/mL (0.30-0.70) 0.16 IU/mL (0.30-0.70) 0.26 IU/mL (0.30-0.70) White Blood Count 15.7 x10^3/uL (4.0-11.0) Red Blood Count 3.49 x10^6/uL (4.30-5.70) Hemoglobin 11.2 g/dL (13.0-17.5) Hematocrit 33.4 % (39.0-53.0) Mean Corpuscular Volume 96 fL (79-100) Mean Corpuscular Hemoglobin 32 pg (25-35) Mean Corpuscular Hemoglobin Concent 34 g/dL (31-37) Red Cell Distribution Width 14.0 % (11.5-14.5) Platelet Count 251 x10^3/uL (140-400) Neutrophils (%) (Auto) 89 % (31-73) Lymphocytes (%) (Auto) 8 % (24-48) Monocytes (%) (Auto) 2 % (0-9) Eosinophils (%) (Auto) 2 % (0-3) Basophils (%) (Auto) 0 % (0-3) Neutrophils # (Auto) 13.9 x10^3/uL (1.8-7.7) Lymphocytes # (Auto) 1.2 x10^3/uL (1.0-4.8) Monocytes # (Auto) 0.2 x10^3/uL (0.0-1.1) Eosinophils # (Auto) 0.2 x10^3/uL (0.0-0.7) Basophils # (Auto) 0.0 x10^3/uL (0.0-0.2) Sodium Level 136 mmol/L (136-145) Potassium Level 3.6 mmol/L (3.5-5.1) Chloride Level 99 mmol/L (98-107) Carbon Dioxide Level 23 mmol/L (21-32) Anion Gap 14 (6-14) Blood Urea Nitrogen 81 mg/dL (8-26) Creatinine 4.5 mg/dL (0.7-1.3) Estimated GFR (Cockcroft-Gault) 13.2 BUN/Creatinine Ratio 18 (6-20) Glucose Level 89 mg/dL (70-99) Calcium Level 7.5 mg/dL (8.5-10.1) Total Bilirubin 2.3 mg/dL (0.2-1.0) Aspartate Amino Transf (AST/SGOT) 66 U/L (15-37) Alanine Aminotransferase (ALT/SGPT) 21 U/L (16-63) Alkaline Phosphatase 58 U/L (46-116) Total Protein 5.3 g/dL (6.4-8.2) Albumin 2.5 g/dL (3.4-5.0) Albumin/Globulin Ratio 0.9 (1.0-1.7) Test 08/02/19 07:20 08/02/19 07:25 O2 Saturation 97 % (92-99) Arterial Blood pH 7.37 (7.35-7.45) Arterial Blood pCO2 at Patient Temp 38 mmHg (35-46) Arterial Blood pO2 at Patient Temp 94 mmHg (65-108) Arterial Blood HCO3 22 mmol/L (21-28) Arterial Blood Base Excess -3 mmol/L (-3-3) FiO2 40% Heparin Anti-Xa Act, Unfractionated 0.25 IU/mL (0.30-0.70) Laboratory Tests Test 08/01/19 15:00 08/01/19 22:20 08/02/19 05:00 08/02/19 07:20 Heparin Anti-Xa Act, Unfractionated 0.16 IU/mL (0.30-0.70) 0.26 IU/mL (0.30-0.70) White Blood Count 15.7 x10^3/uL (4.0-11.0) Red Blood Count 3.49 x10^6/uL (4.30-5.70) Hemoglobin 11.2 g/dL (13.0-17.5) Hematocrit 33.4 % (39.0-53.0) Mean Corpuscular Volume 96 fL (79-100) Mean Corpuscular Hemoglobin 32 pg (25-35) Mean Corpuscular Hemoglobin Concent 34 g/dL (31-37) Red Cell Distribution Width 14.0 % (11.5-14.5) Platelet Count 251 x10^3/uL (140-400) Neutrophils (%) (Auto) 89 % (31-73) Lymphocytes (%) (Auto) 8 % (24-48) Monocytes (%) (Auto) 2 % (0-9) Eosinophils (%) (Auto) 2 % (0-3) Basophils (%) (Auto) 0 % (0-3) Neutrophils # (Auto) 13.9 x10^3/uL (1.8-7.7) Lymphocytes # (Auto) 1.2 x10^3/uL (1.0-4.8) Monocytes # (Auto) 0.2 x10^3/uL (0.0-1.1) Eosinophils # (Auto) 0.2 x10^3/uL (0.0-0.7) Basophils # (Auto) 0.0 x10^3/uL (0.0-0.2) Sodium Level 136 mmol/L (136-145) Potassium Level 3.6 mmol/L (3.5-5.1) Chloride Level 99 mmol/L (98-107) Carbon Dioxide Level 23 mmol/L (21-32) Anion Gap 14 (6-14) Blood Urea Nitrogen 81 mg/dL (8-26) Creatinine 4.5 mg/dL (0.7-1.3) Estimated GFR (Cockcroft-Gault) 13.2 BUN/Creatinine Ratio 18 (6-20) Glucose Level 89 mg/dL (70-99) Calcium Level 7.5 mg/dL (8.5-10.1) Total Bilirubin 2.3 mg/dL (0.2-1.0) Aspartate Amino Transf (AST/SGOT) 66 U/L (15-37) Alanine Aminotransferase (ALT/SGPT) 21 U/L (16-63) Alkaline Phosphatase 58 U/L (46-116) Total Protein 5.3 g/dL (6.4-8.2) Albumin 2.5 g/dL (3.4-5.0) Albumin/Globulin Ratio 0.9 (1.0-1.7) O2 Saturation 97 % (92-99) Arterial Blood pH 7.37 (7.35-7.45) Arterial Blood pCO2 at Patient Temp 38 mmHg (35-46) Arterial Blood pO2 at Patient Temp 94 mmHg (65-108) Arterial Blood HCO3 22 mmol/L (21-28) Arterial Blood Base Excess -3 mmol/L (-3-3) FiO2 40% Test 08/02/19 07:25 Heparin Anti-Xa Act, Unfractionated 0.25 IU/mL (0.30-0.70) Microbiology 08/01/19 Blood Culture - Preliminary, Resulted NO GROWTH AFTER 1 DAY 07/31/19 - Final, Resulted 07/31/19 - Final, Resulted 07/31/19 - Final, Resulted 07/31/19 - Final, Resulted 07/31/19 - Preliminary, Resulted 07/31/19 - Preliminary, Resulted 07/31/19 Gram Stain Evaluation - Final, Resulted 07/31/19 Sputum Culture, Resulted Pending 07/30/19 Urine Culture - Final, Complete 07/30/19 Urine Culture Result 1 (SONIA) - Final, Complete Medications Current Medications Albuterol/ Ipratropium (Duoneb) 3 ml 1X ONCE NEB Last administered on 07/30/19at 18:00; Start 07/30/19 at 18:00; Stop 07/30/19 at 18:01; Status DC Albuterol Sulfate (Ventolin Neb Soln) 10 mg 1X ONCE CONT NEB Last administered on 07/30/19at 18:00; Start 07/30/19 at 18:00; Stop 07/30/19 at 18:01; Status DC Morphine Sulfate (Morphine Sulfate) 2 mg PRN Q15MIN PRN IV/SQ PAIN GREATER THAN 3/10 Last administered on 07/30/19at 18:08; Start 07/30/19 at 18:00; Stop 07/31/19 at 00:10; Status DC Diltiazem HCl (Cardizem Iv Push) 10 mg 1X ONCE IVP Last administered on 07/30/19at 18:01; Start 07/30/19 at 18:00; Stop 07/30/19 at 18:01; Status DC Diltiazem HCl 125 mg/Sodium Chloride 125 ml @ 5 mls/hr 1X ONCE IV Last administered on 07/30/19at 18:36; Start 07/30/19 at 18:00; Stop 07/31/19 at 18:59; Status DC Lorazepam (Ativan Inj) 2 mg 1X ONCE IVP Last administered on 07/30/19at 18:35; Start 07/30/19 at 18:15; Stop 07/30/19 at 18:16; Status DC Lorazepam (Ativan Inj) 2 mg STK-MED ONCE .ROUTE ; Start 07/30/19 at 18:14; Stop 07/30/19 at 18:14; Status DC Digoxin (Lanoxin) 250 mcg 1X ONCE IV Last administered on 07/30/19at 18:53; Start 07/30/19 at 18:45; Stop 07/30/19 at 18:46; Status DC Amiodarone HCl 150 mg/Dextrose 103 ml @ 618 mls/hr 1X ONCE IV Last administered on 07/30/19at 20:07; Start 07/30/19 at 18:45; Stop 07/30/19 at 18:54; Status DC Amiodarone HCl 450 mg/Dextrose 259 ml @ 0 mls/hr CONT PRN IV SEE I/O RECORD Last administered on 07/30/19at 20:21; Start 07/30/19 at 18:45 Sodium Chloride 1,000 ml @ 1,000 mls/hr 1X ONCE IV Last administered on 07/30/19at 18:20; Start 07/30/19 at 18:45; Stop 07/31/19 at 02:15; Status DC Sodium Chloride 2,130 ml @ 2,130 mls/hr Q1H IV Last administered on 07/30/19at 19:02; Start 07/30/19 at 18:53; Stop 07/31/19 at 02:15; Status DC Piperacillin Sod/ Tazobactam Sod 4.5 gm/Sodium Chloride 100 ml @ 200 mls/hr 1X ONCE IV Last administered on 07/30/19at 19:06; Start 07/30/19 at 19:00; Stop 07/31/19 at 08:04; Status DC Vancomycin HCl (Vanco Per Pharmacy) 1 each 1X ONCE MC ; Start 07/30/19 at 19:00; Stop 07/31/19 at 08:04; Status DC Norepinephrine Bitartrate 8 mg/ Dextrose 258 ml @ 0 mls/hr CONT PRN IV PER PROTOCOL; Start 07/30/19 at 19:00; Stop 07/31/19 at 08:04; Status DC Potassium Chloride/Water 100 ml @ 100 mls/hr Q1H IV Last administered on 07/30/19at 21:31; Start 07/30/19 at 19:30; Stop 07/30/19 at 21:29; Status DC Vancomycin HCl 2 gm/Sodium Chloride 500 ml @ 250 mls/hr 1X ONCE IV Last administered on 07/30/19at 20:15; Start 07/30/19 at 19:15; Stop 07/30/19 at 21:14; Status DC Fentanyl Citrate (Fentanyl 2ml Vial) 25 mcg PRN Q1HR PRN IV SEE COMMENTS; Start 07/30/19 at 19:15; Stop 07/31/19 at 00:11; Status DC Fentanyl Citrate (Fentanyl 2ml Vial) 50 mcg PRN Q1HR PRN IV SEE COMMENTS; Start 07/30/19 at 19:15; Stop 07/31/19 at 00:11; Status DC Chlorhexidine Gluconate (Peridex) 15 ml BID MM Last administered on 08/02/19at 09:44; Start 07/30/19 at 21:00 Morphine Sulfate (Morphine Sulfate) 2 mg PRN Q1HR PRN IV SEE COMMENTS.; Start 07/30/19 at 19:15; Stop 07/31/19 at 00:11; Status DC Morphine Sulfate (Morphine Sulfate) 4 mg PRN Q1HR PRN IV SEE COMMENTS.; Start 07/30/19 at 19:15; Stop 07/31/19 at 00:11; Status DC Midazolam HCl 50 mg/Sodium Chloride 50 ml @ 0 mls/hr CONT PRN IV SEE PROTOCOL Last administered on 07/30/19at 20:40; Start 07/30/19 at 19:15; Stop 07/31/19 at 00:10; Status DC Acetaminophen (Tylenol Supp) 650 mg 1X ONCE RI Last administered on 07/30/19at 20:49; Start 07/30/19 at 20:15; Stop 07/30/19 at 20:16; Status DC Ondansetron HCl (Zofran) 4 mg PRN Q8HRS PRN IV NAUSEA/VOMITING; Start 07/30/19 at 20:30; Stop 07/31/19 at 20:29; Status DC Acetaminophen (Tylenol) 650 mg PRN Q4HRS PRN PO FEVER Last administered on 07/31/19at 12:49; Start 07/30/19 at 20:30; Stop 07/31/19 at 20:29; Status DC Heparin Sodium/ Dextrose 250 ml @ 0 mls/hr CONT PRN IV PER PROTOCOL Last admi nistered on 08/02/19at 01:33; Start 07/30/19 at 20:45 Heparin Sodium (Porcine) (Heparin Sodium) 2,200 unit PRN Q6HRS PRN IV FOR UFH LEVEL LESS THAN 0.2 Last administered on 08/01/19at 15:42; Start 07/30/19 at 20:45 Info (Anti-Coagulation Monitoring By Pharmacy) 1 each PRN DAILY PRN MC SEE COMMENTS Last administered on 07/31/19at 13:57; Start 07/30/19 at 21:00 Etomidate (Amidate) 20 mg STK-MED ONCE IV ; Start 07/30/19 at 21:15; Stop 07/30/19 at 21:16; Status DC Rocuronium Seguin (Zemuron) 50 mg STK-MED ONCE .ROUTE ; Start 2/27/20 at 21:16; Stop 07/30/19 at 21:16; Status DC Diltiazem HCl 125 mg/Sodium Chloride 125 ml @ 5 mls/hr CONT PRN IV SEE I/O RECORD; Start 07/30/19 at 22:30; Stop 07/31/19 at 06:01; Status DC Sodium Bicarbonate 100 meq/Dextrose 1,100 ml @ 75 mls/hr 1X ONCE IV Last administered on 07/31/19at 01:54; Start 07/30/19 at 23:00; Stop 07/31/19 at 13:39; Status DC Etomidate (Amidate) 20 mg 1X ONCE IV Last administered on 07/30/19at 19:27; Start 07/30/19 at 23:45; Stop 07/30/19 at 23:46; Status DC Rocuronium Seguin (Zemuron) 50 mg 1X ONCE IV Last administered on 07/30/19at 19:28; Start 07/30/19 at 23:45; Stop 07/30/19 at 23:46; Status DC Rocuronium Seguin (Zemuron) 50 mg 1X ONCE IV Last administered on 07/30/19at 19:28; Start 07/30/19 at 23:45; Stop 07/30/19 at 23:46; Status DC Digoxin (Lanoxin) 250 mcg 1X ONCE IV Last administered on 07/31/19at 00:12; Start 07/31/19 at 00:30; Stop 07/31/19 at 00:31; Status DC Heparin Sodium/ Dextrose 250 ml @ 0 mls/hr CONT PRN IV SEE I/O RECORD; Start 07/31/19 at 00:00; Status UNV Fentanyl Citrate 30 ml @ 0 mls/hr CONT PRN IV SEE PROTOCOL Last administered on 08/01/19at 20:48; Start 07/31/19 at 00:15 Midazolam HCl 50 mg/Sodium Chloride 50 ml @ 0 mls/hr CONT PRN IV SEE PROTOCOL Last administered on 08/02/19at 01:32; Start 07/31/19 at 00:15 Diltiazem HCl 125 mg/Sodium Chloride 125 ml @ 5 mls/hr CONT PRN IV SEE I/O RECORD Last administered on 08/01/19at 03:03; Start 07/31/19 at 01:00 Albuterol/ Ipratropium (Duoneb) 3 ml Q4HRS NEB Last administered on 08/02/19at 07:17; Start 07/31/19 at 04:00 Sodium Chloride 1,000 ml @ 120 mls/hr Q8H20M IV Last administered on 07/31/19at 02:30; Start 07/31/19 at 02:30; Stop 07/31/19 at 13:55; Status DC Vancomycin HCl (Vanco Per Pharmacy) 1 each PRN DAILY PRN MC SEE COMMENTS Last administered on 07/31/19at 03:30; Start 07/31/19 at 02:30; Stop 07/31/19 at 08:06; Status DC Vancomycin HCl 1.25 gm/Sodium Chloride 250 ml @ 167 mls/hr Q12H IV Last administered on 07/31/19at 07:57; Start 07/31/19 at 08:00; Stop 07/31/19 at 08:06; Status DC Vancomycin HCl (Vancomycin Trough Level) 1 each 1X ONCE MC ; Start 08/01/19 at 07:30; Stop 08/01/19 at 07:31; Status Cancel Micafungin Sodium 100 mg/Dextrose 100 ml @ 100 mls/hr Q24H IV Last administered on 08/02/19at 07:06; Start 07/31/19 at 08:00 Oseltamivir Phosphate (Tamiflu) 30 mg BID PO Last administered on 08/02/19at 09:44; Start 07/31/19 at 09:00; Stop 08/05/19 at 08:59 Linezolid/Dextrose 300 ml @ 300 mls/hr Q12HR IV Last administered on 08/02/19at 09:44; Start 07/31/19 at 09:00 Daptomycin 490 mg/ Sodium Chloride 50 ml @ 100 mls/hr Q24H IV Last administered on 07/31/19at 12:40; Start 07/31/19 at 10:00; Stop 08/01/19 at 09:01; Status DC Meropenem 1 gm/ Sodium Chloride 100 ml @ 200 mls/hr Q12HR IV Last administered on 08/02/19at 08:53; Start 07/31/19 at 09:00 Potassium Bicarbonate (Potassium Effervescent Tablet) 40 meq 1X ONCE PEG Last administered on 07/31/19at 10:54; Start 07/31/19 at 10:30; Stop 07/31/19 at 10:43; Status DC Famotidine (Pepcid Vial) 20 mg QHS IVP Last administered on 08/01/19at 20:46; Start 07/31/19 at 21:00 Albumin Human 100 ml @ 100 mls/hr TID IV Last administered on 08/02/19at 09:44; Start 07/31/19 at 14:30; Stop 08/02/19 at 09:59; Status DC Sodium Chloride 2,340 ml @ 2,340 mls/hr Q1H IV ; Start 07/31/19 at 14:48; Status UNV Sodium Chloride 500 ml @ 1,000 mls/hr PRN Q30MIN PRN IV SEE COMMENTS; Start 07/31/19 at 15:00; Status UNV Dobutamine HCl/ Dextrose 250 ml @ 0 mls/hr CONT PRN IV SEE I/O RECORD; Start 07/31/19 at 15:00; Status UNV Ondansetron HCl (Zofran) 4 mg PRN Q6HRS PRN IV NAUSEA/VOMITING; Start 07/31/19 at 15:00 Prochlorperazine (Compazine) 25 mg PRN Q12HR PRN RI NAUSEA/VOMITING; Start 07/31/19 at 15:00 Famotidine (Pepcid Vial) 20 mg BID IVP ; Start 07/31/19 at 21:00; Status UNV Sodium Chloride (Normal Saline Flush) 3 ml QSHIFT PRN IV AFTER MEDS AND BLOOD DRAWS; Start 07/31/19 at 15:00 Bisacodyl (Dulcolax Supp) 10 mg PRN DAILY PRN RI CONSTIPATION; Start 07/31/19 at 15:00 Thiamine HCl 100 mg/Dextrose 51 ml @ 102 mls/hr DAILY IV Last administered on 08/02/19at 08:53; Start 07/31/19 at 17:00 Vitamin A/Vitamin D (Vitamin A & D Ointment) 1 milton PRN Q1HR PRN TP SKIN PROTECTION; Start 07/31/19 at 16:45 Daptomycin 490 mg/ Sodium Chloride 50 ml @ 100 mls/hr Q48H IV Last administered on 08/01/19at 10:36; Start 08/01/19 at 10:00 Furosemide (Lasix) 40 mg 1X ONCE IVP Last administered on 08/01/19at 22:14; Start 08/01/19 at 22:30; Stop 08/01/19 at 22:31; Status DC Potassium Bicarbonate (Potassium Effervescent Tablet) 20 meq 1X ONCE PEG Last administered on 08/01/19at 22:14; Start 08/01/19 at 22:30; Stop 08/01/19 at 22:31; Status DC Active Scripts Active Proair Hfa (Albuterol Sulfate) 8.5 Gm Hfa.aer.ad 2 Puff IH PRN Q4-6HRS PRN 21 Days Tessalon Perle (Benzonatate) 100 Mg Capsule 1 Cap PO TID Prednisone 50 Mg Tablet 1 Tab PO DAILY Cyclobenzaprine Hcl 5 Mg Tablet 1 Tab PO TID Ibuprofen 800 Mg Tablet 800 Mg PO Q6-8HRS Zofran Odt (Ondansetron) 4 Mg Tab.rapdis 1 Tab SL Q8HRS Ultram (Tramadol Hcl) 50 Mg Tablet 1 Tab PO Q6HRS Vitals/I & O Vital Sign - Last 24 Hours 08/01/19 08/01/19 08/01/19 08/01/19 11:00 11:30 11:57 12:00 Temp 100.0 100.0 Pulse 105 109 Resp 14 14 B/P (MAP) 130/59 (82) 126/63 (84) Pulse Ox 98 98 97 O2 Delivery Ventilator Ventilator Mechanical Ventilator Ventilator 08/01/19 08/01/19 08/01/19 08/01/19 13:00 14:00 15:00 15:04 Pulse 101 104 106 Resp 14 14 14 B/P (MAP) 119/63 (81) 122/62 (82) 128/60 (82) Pulse Ox 98 98 98 98 O2 Delivery Ventilator Ventilator Ventilator Ventilator 08/01/19 08/01/19 08/01/19 08/01/19 15:47 16:00 16:32 17:00 Temp 99.8 99.8 Pulse 103 104 Resp 14 14 B/P (MAP) 119/59 (79) 119/56 (77) Pulse Ox 97 97 96 O2 Delivery Mechanical Ventilator Ventilator Ventilator Ventilator 08/01/19 08/01/19 08/01/19 08/01/19 18:00 19:00 20:00 20:00 Temp 101.4 101.4 Pulse 105 106 134 Resp 14 14 14 B/P (MAP) 121/68 (85) 131/68 (89) 108/56 (73) Pulse Ox 97 97 97 O2 Delivery Ventilator Ventilator Mechanical Ventilator Ventilator 08/01/19 08/01/19 08/01/19 08/01/19 20:40 21:00 22:00 23:00 Pulse 126 115 96 Resp 14 14 14 B/P (MAP) 110/62 (78) 108/64 (79) 126/57 (80) Pulse Ox 97 97 97 97 O2 Delivery Ventilator Ventilator Ventilator Ventilator 08/02/19 08/02/19 08/02/19 08/02/19 00:00 00:00 00:31 01:00 Temp 99.4 99.4 Pulse 92 96 Resp 14 14 B/P (MAP) 94/48 (63) 101/50 (67) Pulse Ox 98 96 96 O2 Delivery Mechanical Ventilator Ventilator Ventilator Ventilator 08/02/19 08/02/19 08/02/19 08/02/19 02:00 02:40 03:00 04:00 Pulse 91 91 Resp 14 14 B/P (MAP) 110/53 (72) 107/50 (69) Pulse Ox 97 96 97 O2 Delivery Ventilator Ventilator Ventilator Mechanical Ventilator 08/02/19 08/02/19 08/02/19 08/02/19 04:00 04:48 05:00 05:44 Temp 99.3 99.3 Pulse 85 90 Resp 14 14 B/P (MAP) 104/50 (68) 110/54 (72) Pulse Ox 98 97 96 97 O2 Delivery Ventilator Ventilator Ventilator Ventilator 08/02/19 08/02/19 08/02/19 08/02/19 06:00 07:00 07:17 08:00 Pulse 88 89 Resp 14 14 B/P (MAP) 117/64 (81) 113/58 (76) Pulse Ox 97 98 97 O2 Delivery Ventilator Ventilator Ventilator Mechanical Ventilator 08/02/19 08/02/19 08/02/19 08/02/19 08:00 09:00 09:10 10:00 Temp 99.0 99.0 Pulse 88 84 84 Resp 14 14 14 B/P (MAP) 118/64 (82) 119/68 (85) 115/68 (84) Pulse Ox 97 98 97 96 O2 Delivery Ventilator Ventilator Ventilator Ventilator Intake and Output 08/01/19 08/01/19 08/02/19 15:00 23:00 07:00 Intake Total 401 ml 443 ml 426 ml Output Total 467 ml 18 ml 155 ml Balance -66 ml 425 ml 271 ml Nutrition Consultation Dietary Evaluation: Recommendations by RD: Dietary education by RD, Increase Calorie Intake Comments: REC TFs per following: VitalAF@20 ml/hr, increase 10 ml q8 hrs as tolerated to goal rate 65 ml/hr w/200 ml water flushes q4 hrs or flushes per MD Expected Outcomes/Goals: Initiation of TFs within 24 - 48 hrs of intubation Malnutrition Findings: Food and Nutrition Intake (Mod: <75% est energy req 7days Body Fat Depletion (Non Severe: Mild Depletion Weight Status: Appropriate CORY SCHMIDT MD Aug 02, 2019 10:52
--- NOTE | 2019-08-02 11:22 | PDOC ---
PULMONARY PROGRESS NOTES Subjective SEDATED ON AC MODE IV HEPARIN IV CARDIZEM Vitals Vital Signs Date Time Temp Pulse Resp B/P (MAP) Pulse Ox O2 Delivery O2 Flow Rate FiO2 08/02/19 11:00 82 14 116/64 (81) 98 Ventilator 08/02/19 08:00 99.0 99.0 Lungs: Crackles Cardiovascular: S1, S2 Abdomen: Soft Extremities: Other (PVD) Skin: Warm Labs Laboratory Tests Test 07/31/19 15:00 07/31/19 22:20 08/01/19 05:15 08/01/19 07:15 Prothrombin Time 14.7 SEC (11.7-14.0) Prothromb Time International Ratio 1.2 (0.8-1.1) Activated Partial Thromboplast Time 39 SEC (24-38) Fibrinogen 755 mg/dL (200-440) D-Dimer (Arlette) 3.94 ug/mlFEU (0.00-0.50) Heparin Anti-Xa Act, Unfractionated < 0.10 IU/mL (0.30-0.70) < 0.10 IU/mL (0.30-0.70) White Blood Count 15.0 x10^3/uL (4.0-11.0) Red Blood Count 3.68 x10^6/uL (4.30-5.70) Hemoglobin 11.8 g/dL (13.0-17.5) Hematocrit 35.2 % (39.0-53.0) Mean Corpuscular Volume 96 fL (79-100) Mean Corpuscular Hemoglobin 32 pg (25-35) Mean Corpuscular Hemoglobin Concent 34 g/dL (31-37) Red Cell Distribution Width 13.9 % (11.5-14.5) Platelet Count 277 x10^3/uL (140-400) Neutrophils (%) (Auto) 91 % (31-73) Lymphocytes (%) (Auto) 8 % (24-48) Monocytes (%) (Auto) 1 % (0-9) Eosinophils (%) (Auto) 1 % (0-3) Basophils (%) (Auto) 0 % (0-3) Neutrophils # (Auto) 13.6 x10^3/uL (1.8-7.7) Lymphocytes # (Auto) 1.2 x10^3/uL (1.0-4.8) Monocytes # (Auto) 0.1 x10^3/uL (0.0-1.1) Eosinophils # (Auto) 0.1 x10^3/uL (0.0-0.7) Basophils # (Auto) 0.0 x10^3/uL (0.0-0.2) Sodium Level 139 mmol/L (136-145) Potassium Level 3.5 mmol/L (3.5-5.1) Chloride Level 101 mmol/L (98-107) Carbon Dioxide Level 24 mmol/L (21-32) Anion Gap 14 (6-14) Blood Urea Nitrogen 60 mg/dL (8-26) Creatinine 3.4 mg/dL (0.7-1.3) Estimated GFR (Cockcroft-Gault) 18.2 BUN/Creatinine Ratio 18 (6-20) Glucose Level 89 mg/dL (70-99) Calcium Level 7.7 mg/dL (8.5-10.1) Total Bilirubin 2.1 mg/dL (0.2-1.0) Aspartate Amino Transf (AST/SGOT) 79 U/L (15-37) Alanine Aminotransferase (ALT/SGPT) 23 U/L (16-63) Alkaline Phosphatase 61 U/L (46-116) Total Protein 4.9 g/dL (6.4-8.2) Albumin 2.1 g/dL (3.4-5.0) Albumin/Globulin Ratio 0.8 (1.0-1.7) O2 Saturation 97 % (92-99) Arterial Blood pH 7.41 (7.35-7.45) Arterial Blood pCO2 at Patient Temp 35 mmHg (35-46) Arterial Blood pO2 at Patient Temp 101 mmHg (65-108) Arterial Blood HCO3 21 mmol/L (21-28) Arterial Blood Base Excess -3 mmol/L (-3-3) FiO2 50% Test 08/01/19 08:15 08/01/19 15:00 08/01/19 22:20 08/02/19 05:00 Heparin Anti-Xa Act, Unfractionated 0.13 IU/mL (0.30-0.70) 0.16 IU/mL (0.30-0.70) 0.26 IU/mL (0.30-0.70) White Blood Count 15.7 x10^3/uL (4.0-11.0) Red Blood Count 3.49 x10^6/uL (4.30-5.70) Hemoglobin 11.2 g/dL (13.0-17.5) Hematocrit 33.4 % (39.0-53.0) Mean Corpuscular Volume 96 fL (79-100) Mean Corpuscular Hemoglobin 32 pg (25-35) Mean Corpuscular Hemoglobin Concent 34 g/dL (31-37) Red Cell Distribution Width 14.0 % (11.5-14.5) Platelet Count 251 x10^3/uL (140-400) Neutrophils (%) (Auto) 89 % (31-73) Lymphocytes (%) (Auto) 8 % (24-48) Monocytes (%) (Auto) 2 % (0-9) Eosinophils (%) (Auto) 2 % (0-3) Basophils (%) (Auto) 0 % (0-3) Neutrophils # (Auto) 13.9 x10^3/uL (1.8-7.7) Lymphocytes # (Auto) 1.2 x10^3/uL (1.0-4.8) Monocytes # (Auto) 0.2 x10^3/uL (0.0-1.1) Eosinophils # (Auto) 0.2 x10^3/uL (0.0-0.7) Basophils # (Auto) 0.0 x10^3/uL (0.0-0.2) Sodium Level 136 mmol/L (136-145) Potassium Level 3.6 mmol/L (3.5-5.1) Chloride Level 99 mmol/L (98-107) Carbon Dioxide Level 23 mmol/L (21-32) Anion Gap 14 (6-14) Blood Urea Nitrogen 81 mg/dL (8-26) Creatinine 4.5 mg/dL (0.7-1.3) Estimated GFR (Cockcroft-Gault) 13.2 BUN/Creatinine Ratio 18 (6-20) Glucose Level 89 mg/dL (70-99) Calcium Level 7.5 mg/dL (8.5-10.1) Total Bilirubin 2.3 mg/dL (0.2-1.0) Aspartate Amino Transf (AST/SGOT) 66 U/L (15-37) Alanine Aminotransferase (ALT/SGPT) 21 U/L (16-63) Alkaline Phosphatase 58 U/L (46-116) Total Protein 5.3 g/dL (6.4-8.2) Albumin 2.5 g/dL (3.4-5.0) Albumin/Globulin Ratio 0.9 (1.0-1.7) Test 08/02/19 07:20 08/02/19 07:25 O2 Saturation 97 % (92-99) Arterial Blood pH 7.37 (7.35-7.45) Arterial Blood pCO2 at Patient Temp 38 mmHg (35-46) Arterial Blood pO2 at Patient Temp 94 mmHg (65-108) Arterial Blood HCO3 22 mmol/L (21-28) Arterial Blood Base Excess -3 mmol/L (-3-3) FiO2 40% Heparin Anti-Xa Act, Unfractionated 0.25 IU/mL (0.30-0.70) Laboratory Tests Test 08/01/19 15:00 08/01/19 22:20 08/02/19 05:00 08/02/19 07:20 Heparin Anti-Xa Act, Unfractionated 0.16 IU/mL (0.30-0.70) 0.26 IU/mL (0.30-0.70) White Blood Count 15.7 x10^3/uL (4.0-11.0) Red Blood Count 3.49 x10^6/uL (4.30-5.70) Hemoglobin 11.2 g/dL (13.0-17.5) Hematocrit 33.4 % (39.0-53.0) Mean Corpuscular Volume 96 fL (79-100) Mean Corpuscular Hemoglobin 32 pg (25-35) Mean Corpuscular Hemoglobin Concent 34 g/dL (31-37) Red Cell Distribution Width 14.0 % (11.5-14.5) Platelet Count 251 x10^3/uL (140-400) Neutrophils (%) (Auto) 89 % (31-73) Lymphocytes (%) (Auto) 8 % (24-48) Monocytes (%) (Auto) 2 % (0-9) Eosinophils (%) (Auto) 2 % (0-3) Basophils (%) (Auto) 0 % (0-3) Neutrophils # (Auto) 13.9 x10^3/uL (1.8-7.7) Lymphocytes # (Auto) 1.2 x10^3/uL (1.0-4.8) Monocytes # (Auto) 0.2 x10^3/uL (0.0-1.1) Eosinophils # (Auto) 0.2 x10^3/uL (0.0-0.7) Basophils # (Auto) 0.0 x10^3/uL (0.0-0.2) Sodium Level 136 mmol/L (136-145) Potassium Level 3.6 mmol/L (3.5-5.1) Chloride Level 99 mmol/L (98-107) Carbon Dioxide Level 23 mmol/L (21-32) Anion Gap 14 (6-14) Blood Urea Nitrogen 81 mg/dL (8-26) Creatinine 4.5 mg/dL (0.7-1.3) Estimated GFR (Cockcroft-Gault) 13.2 BUN/Creatinine Ratio 18 (6-20) Glucose Level 89 mg/dL (70-99) Calcium Level 7.5 mg/dL (8.5-10.1) Total Bilirubin 2.3 mg/dL (0.2-1.0) Aspartate Amino Transf (AST/SGOT) 66 U/L (15-37) Alanine Aminotransferase (ALT/SGPT) 21 U/L (16-63) Alkaline Phosphatase 58 U/L (46-116) Total Protein 5.3 g/dL (6.4-8.2) Albumin 2.5 g/dL (3.4-5.0) Albumin/Globulin Ratio 0.9 (1.0-1.7) O2 Saturation 97 % (92-99) Arterial Blood pH 7.37 (7.35-7.45) Arterial Blood pCO2 at Patient Temp 38 mmHg (35-46) Arterial Blood pO2 at Patient Temp 94 mmHg (65-108) Arterial Blood HCO3 22 mmol/L (21-28) Arterial Blood Base Excess -3 mmol/L (-3-3) FiO2 40% Test 08/02/19 07:25 Heparin Anti-Xa Act, Unfractionated 0.25 IU/mL (0.30-0.70) Medications Active Scripts Medications Dose Route/Sig Max Daily Dose Days Date Category Proair Hfa (Albuterol Sulfate) 8.5 Gm Hfa.aer.ad 2 Puff IH PRN Q4-6HRS PRN 21 07/25/19 Rx Tessalon Perle (Benzonatate) 100 Mg Capsule 1 Cap PO TID 07/25/19 Rx Prednisone 50 Mg Tablet 1 Tab PO DAILY 07/25/19 Rx Cyclobenzaprine Hcl 5 Mg Tablet 1 Tab PO TID 03/21/17 Rx Ibuprofen 800 Mg Tablet 800 Mg PO Q6-8HRS 03/21/17 Rx Zofran Odt (Ondansetron) 4 Mg Tab.rapdis 1 Tab SL Q8HRS 01/07/17 Rx Ultram (Tramadol Hcl) 50 Mg Tablet 1 Tab PO Q6HRS 01/29/16 Rx Impression . IMPRESSION: 1. Acute hypoxemic respiratory failure. MULTIFACTORIAL 2. Sepsis. 3. Pneumonia, suspect gram-negative, possibly gram-positive. 4. Influenza A. 5. New onset atrial fibrillation. 6. Peripheral vascular disease with possible peripheral emboli. 7. Metabolic acidosis. 8. Acute renal failure. 9. Severe protein malnutrition, present upon admission. 10. Elevated total bilirubin. ID3/1 Assessment Septic shock procalcitonin 25.26 GPC in chains/pairs bacteremia, (4 of 4 bottles), 07/30 ? source. -Repeat BC neg to date. TTE (07/31) no evidence veg Influenza A, respiratory tract infection. Acute hypoxic respiratory failure with pneumonia, status post intubation. 07/31. GPC & GPR on gram stain. culture in process DR DE ANDA NOTE IMPRESSION: 1. Ischemic skin changes to his right and left foot, worse in the right foot compared to the left with early gangrene despite adequate circulation. 2. Respiratory failure. 3. Confusion at presentation and he has been homeless with no medical care. PLAN: The patient has ischemic type changes in his right and left foot. The right foot is significantly worse than the left. There is mottling, demarcation and signs of early gangrene in his right foot. His left foot has mottling, but no sandy gangrene at this point. He does have good circulation in his legs with dopplerable pulses in both of his feet and duplex scan of the right leg shows patency of his vessels. No arterial intervention is needed at this point. I do recommend continuing his heparin drip and warming his feet and lower legs. He may end up requiring amputation of his feet in the future, but no urgent surgical intervention is needed at this point. We will continue to monitor. Plan . SCHEDULE FOR HD IN AM ANTI BNX PER ID CXR REVIEWED ? IMPROVEMENT NO SURGERY PLANNED FOR NOW IV HEPARIN ANTI BX ABG NOTED 07/31 1. We will continue support with mechanical ventilation, adjust minute ventilation to normalize pH. 2. Continue IV antibiotics. 3. Vascular Surgery has been consulted. 4. Follow Cardiology. 4. Echocardiogram pending. 5. Follow up blood cultures. 6. DVT and GI prophylaxis. 7. Nebulized treatments. 8. Control ventricular response in atrial fibrillation. AISHA ARIZA MD Aug 02, 2019 11:22
[2019-08-02] MEDS: FAMOTIDINE 20 MG/2 ML VIAL IVP SCH (21:11)
[2019-08-02 22:19] LABS: CALCIUM 7.9 mg/dL (8.5-10.1); CREATININE 4.9 mg/dL (0.7-1.3); GFR 11.9; MAGNESIUM 2.5 mg/dL (1.8-2.4); POTASSIUM 3.4 mmol/L (3.5-5.1)
[2019-08-03] VITALS (24 sets, daily range): BP systolic 109–144; BP diastolic 61–78
[2019-08-03] MEDS: MIDAZOLAM HCL 50 MG in IV NORMAL SALINE 50ML 50 ML IV PRN ×3 (01:51→22:35)
[2019-08-03] MEDS: IPRATRPIUM/ALBUTEROL 0.5/2.5MG 3 ML NEBU. NEB SCH ×5 (02:37→20:09)
--- NOTE | 2019-08-03 05:00 | RAD ---
PORTABLE CHEST 1V History: Respiratory failure Comparison: August 02, 2019 Findings: Bilateral interstitial and alveolar opacities, increased within the left mid and lower lung. Small bilateral pleural effusions, unchanged. Stable endotracheal tube, enteric tube and right IJ central line. Impression: 1. Bilateral interstitial and alveolar opacities, increased within the left mid and lower lung. 2. Small bilateral pleural effusions, unchanged. Electronically signed by: Tramaine Granado DO (08/03/2019 4:57 AM) [id number]
[2019-08-03] MEDS: HEPARIN 25,000UTS/250ML PREMIX 250 ML IV PRN ×2 (06:01→15:12)
[2019-08-03 07:03] LABS: GFR 11.7; MAGNESIUM 2.8 mg/dL (1.8-2.4); POTASSIUM 3.5 mmol/L (3.5-5.1)
[2019-08-03 07:23] LABS: BASO % 0 % (0-3); EOS # 0.3 x10^3/uL (0.0-0.7); EOS % 3 % (0-3); HEMATOCRIT 33.6 % (39.0-53.0); HEMOGLOBIN 11.2 g/dL (13.0-17.5); LYMPH # 0.9 x10^3/uL (1.0-4.8); LYMPH % 7 % (24-48); MEAN CORPUSCULAR HEMOGLOBIN 32 pg (25-35); MEAN CORPUSCULAR HGB CONC 33 g/dL (31-37); MEAN CORPUSCULAR VOLUME 95 fL (79-100); MONO # 0.4 x10^3/uL (0.0-1.1); MONO % 3 % (0-9); NEUT # 11.6 x10^3/uL (1.8-7.7); NEUT % 87 % (31-73); PLATELET COUNT 234 x10^3/uL (140-400); RED BLOOD COUNT 3.54 x10^6/uL (4.30-5.70); RED CELL DISTRIBUTION WIDTH 13.8 % (11.5-14.5); WHITE BLOOD COUNT 13.3 x10^3/uL (4.0-11.0)
[2019-08-03] MEDS: CHLORHEXIDINE 0.12% 15 ML MOUTHWASH. MM SCH ×2 (08:14→20:55)
[2019-08-03] MEDS: OSELTAMIVIR 30 MG CAPSULE PO SCH ×2 (08:14→20:55)
[2019-08-03] MEDS: THIAMINE INJ 100 MG in IV DEXTROSE 5% 50 ML IV SCH (08:14)
[2019-08-03] MEDS: MICAFUNGIN 100 MG in IV DEXTROSE 5% 100ML 100 ML IV SCH (08:14)
[2019-08-03] MEDS: MEROPENEM 1 GM in IV NORMAL SALINE 100ML 100 ML IV SCH ×2 (08:15→20:55)
[2019-08-03] MEDS ORDERED: LIDOCAINE WITH 8.4% SOD BICARB 3 ML DISP.SYRIN. ONE (09:05)
--- NOTE | 2019-08-03 09:16 | PDOC ---
Infectious Disease Note Subjective Subjective Orally intubated/vent and sedated FiO2 40% SpO2 96% Fevers Tmax 101.4 UO low ROS ROS unable to obtain Vital Sign Vital Signs Vital Signs Date Time Temp Pulse Resp B/P (MAP) Pulse Ox O2 Delivery O2 Flow Rate FiO2 08/03/19 08:00 Mechanical Ventilator 08/03/19 06:00 80 17 120/63 (82) 99 08/03/19 04:00 98.5 98.5 Physical Exam PHYSICAL EXAM GENERAL: Sedated, orally intubated/vent HEENT: Pupils equal, ETT and OGT in place. NECK: Supple. LUNGS: Diminished aeration bases HEART: S1, S2, irregular rhythm. ABDOMEN: Obese, soft, mildly distended : Valladares in place, scrotal swelling, erythema, EXTREMITIES: Ischemic changes right foot with bullous lesion/gangrene; Left foot pink. Rooke boots bilaterally DERMATOLOGIC: No generalized rash. NEUROLOGIC: Sedated and intubated. RIJ without signs of complications PIVs Labs Lab Laboratory Tests Test 08/02/19 15:00 08/02/19 21:15 08/02/19 21:30 08/03/19 03:00 Heparin Anti-Xa Act, Unfractionated 0.22 IU/mL (0.30-0.70) 0.21 IU/mL (0.30-0.70) 0.45 IU/mL (0.30-0.70) Sodium Level 135 mmol/L (136-145) Potassium Level 3.4 mmol/L (3.5-5.1) Chloride Level 98 mmol/L (98-107) Carbon Dioxide Level 23 mmol/L (21-32) Anion Gap 14 (6-14) Blood Urea Nitrogen 94 mg/dL (8-26) Creatinine 4.9 mg/dL (0.7-1.3) Estimated GFR (Cockcroft-Gault) 11.9 Glucose Level 86 mg/dL (70-99) Calcium Level 7.9 mg/dL (8.5-10.1) Magnesium Level 2.5 mg/dL (1.8-2.4) Test 08/03/19 05:15 White Blood Count 13.3 x10^3/uL (4.0-11.0) Red Blood Count 3.54 x10^6/uL (4.30-5.70) Hemoglobin 11.2 g/dL (13.0-17.5) Hematocrit 33.6 % (39.0-53.0) Mean Corpuscular Volume 95 fL (79-100) Mean Corpuscular Hemoglobin 32 pg (25-35) Mean Corpuscular Hemoglobin Concent 33 g/dL (31-37) Red Cell Distribution Width 13.8 % (11.5-14.5) Platelet Count 234 x10^3/uL (140-400) Neutrophils (%) (Auto) 87 % (31-73) Lymphocytes (%) (Auto) 7 % (24-48) Monocytes (%) (Auto) 3 % (0-9) Eosinophils (%) (Auto) 3 % (0-3) Basophils (%) (Auto) 0 % (0-3) Neutrophils # (Auto) 11.6 x10^3/uL (1.8-7.7) Lymphocytes # (Auto) 0.9 x10^3/uL (1.0-4.8) Monocytes # (Auto) 0.4 x10^3/uL (0.0-1.1) Eosinophils # (Auto) 0.3 x10^3/uL (0.0-0.7) Basophils # (Auto) 0.0 x10^3/uL (0.0-0.2) Sodium Level 136 mmol/L (136-145) Potassium Level 3.5 mmol/L (3.5-5.1) Chloride Level 99 mmol/L (98-107) Carbon Dioxide Level 23 mmol/L (21-32) Anion Gap 14 (6-14) Blood Urea Nitrogen 104 mg/dL (8-26) Creatinine 5.0 mg/dL (0.7-1.3) Estimated GFR (Cockcroft-Gault) 11.7 Glucose Level 81 mg/dL (70-99) Calcium Level 8.0 mg/dL (8.5-10.1) Magnesium Level 2.8 mg/dL (1.8-2.4) Micro Microbiology 08/02/19 Blood Culture - Preliminary, Resulted NO GROWTH AFTER 1 DAY 07/31/19 - Final, Resulted 07/31/19 - Final, Resulted 07/31/19 - Final, Resulted 07/31/19 - Preliminary, Resulted 07/31/19 - Preliminary, Resulted 07/31/19 - Preliminary, Resulted 07/31/19 Gram Stain Evaluation - Final, Resulted 07/31/19 Sputum Culture, Resulted Pending 07/30/19 Urine Culture - Final, Complete 07/30/19 Urine Culture Result 1 (SONIA) - Final, Complete Objective Assessment Septic shock procalcitonin 25.26 GPC in chains/pairs bacteremia, (4 of 4 bottles), 07/30 ? source.- ?lung with strep pneumo ? foot -Repeat BC and 08/01 neg to date. TTE (07/31) no evidence veg Influenza A 07/30 , respiratory tract infection. Acute hypoxic respiratory failure with pneumonia, status post intubation. 07/31. strep pneumo & GPR on gram stain/mold. culture in process Severe peripheral vascular disease, right foot ischemia/gangrene Encephalopathy.- sedated now Lactic acidosis. Acute kidney injury Hyperbilirubinemia. LFT elevation. High troponin. Atrial fibrillation with rapid ventricular response, on amiodarone. Homelessness. Groin dermatitis. Tinea Plan Plan of Care Cont Daptomycin, Merrem, Zyvox and micafungin Tamiflu renally dosed Renal HD cath today Follow up labs and cultures Maintain aspiration precautions Droplet precautions Critically ill Prognosis poor MATTHEW SEPULVEDA MD Aug 03, 2019 09:16
[2019-08-03 09:18] LABS: BASE EXCESS ABG -4 mmol/L (-3-3); HCO3 ABG 21 mmol/L (21-28); PCO2 ABG 39 mmHg (35-46); PO2 ABG 97 mmHg (65-108); SAT O2 ABG 97 % (92-99)
[2019-08-03 09:21] LABS: FIO2 ABG 40
[2019-08-03] MEDS ORDERED: LIDOCAINE WITH 8.4% SOD BICARB 3 ML DISP.SYRIN. INJ ONE (09:30)
--- NOTE | 2019-08-03 09:48 | PDOC ---
SUBJECTIVE ROS Intubated OBJECTIVE Vital Signs Vital Signs Date Time Temp Pulse Resp B/P (MAP) Pulse Ox O2 Delivery O2 Flow Rate FiO2 08/03/19 08:10 98 Ventilator 08/03/19 06:00 80 17 120/63 (82) 08/03/19 04:00 98.5 98.5 I & 0 Intake and Output 08/03/19 07:00 Intake Total 1938 ml Output Total 600 ml Balance 1338 ml Intake IV Total 1788 ml Tube Feeding 150 ml Output Urine Total 600 ml PHYSICAL EXAM Physical Exam GENERAL: Sedated, orally intubated/vent HEENT: ETT and OGT in place. NECK: Supple. LUNGS: Diminished aeration bases HEART: S1, S2, irregular rhythm. ABDOMEN: Obese, soft, : Valladares in place, scrotal swelling, EXTREMITIES: Ischemic changes right foot with bullous lesion/gangrene; DERMATOLOGIC: No generalized rash. NEUROLOGIC: Sedated and intubated. DIAGNOSIS/ASSESSMENT Assessment & Plan ARF: Possible ATN: Patient remains oligo anuric at this time. Initiated on Hemodialysis, seen during treatment, tolerating , continue as ordered, Magno Mixon Septic shock, GPC in chains/pairs bacteremia TTE (07/31) no evidence veg Influenza A 07/30 , respiratory tract infection. Acute hypoxic respiratory failure with pneumonia, status post intubation. 07/31. strep pneumo Severe peripheral vascular disease, right foot ischemia/gangrene Encephalopathy.- sedated Lactic acidosis. Hyperbilirubinemia/LFT elevation. Atrial fibrillation with rapid ventricular response, on amiodarone. COMMENT/RELEVANT DATA Meds Current Medications Medications (Trade) Dose Ordered Sig/[place] Start Time Stop Time Status Last Admin Dose Admin Acetaminophen (Tylenol Supp) 650 mg 1X ONCE 07/30/19 20:15 07/30/19 20:16 DC 07/30/19 20:49 650 MG Acetaminophen (Tylenol) 650 mg PRN Q4HRS PRN 07/30/19 20:30 07/31/19 20:29 DC 07/31/19 12:49 650 MG Albumin Human 100 ml @ 100 mls/hr TID 07/31/19 14:30 08/02/19 09:59 DC 08/02/19 09:44 100 MLS/HR Albuterol Sulfate (Ventolin Neb Soln) 10 mg 1X ONCE 2/27/20 18:00 07/30/19 18:01 DC 07/30/19 18:00 10 MG Albuterol/ Ipratropium (Duoneb) 3 ml Q4HRS 07/31/19 04:00 08/03/19 08:10 3 ML Amiodarone HCl 150 mg/Dextrose 103 ml @ 618 mls/hr 1X ONCE 07/30/19 18:45 07/30/19 18:54 DC 07/30/19 20:07 618 MLS/HR Amiodarone HCl 450 mg/Dextrose 259 ml @ 0 mls/hr CONT PRN 07/30/19 18:45 07/30/19 20:21 33.3 MLS/HR Bisacodyl (Dulcolax Supp) 10 mg PRN DAILY PRN 07/31/19 15:00 Chlorhexidine Gluconate (Peridex) 15 ml BID 07/30/19 21:00 08/03/19 08:14 15 ML Daptomycin 490 mg/ Sodium Chloride 50 ml @ 100 mls/hr Q48H 08/01/19 10:00 08/01/19 10:36 100 MLS/HR Digoxin (Lanoxin) 250 mcg 1X ONCE 07/31/19 00:30 07/31/19 00:31 DC 07/31/19 00:12 250 MCG Diltiazem HCl (Cardizem Iv Push) 10 mg 1X ONCE 07/30/19 18:00 07/30/19 18:01 DC 07/30/19 18:01 10 MG Diltiazem HCl 125 mg/Sodium Chloride 125 ml @ 5 mls/hr CONT PRN 07/31/19 01:00 08/01/19 03:03 5 MLS/HR Dobutamine HCl/ Dextrose 250 ml @ 0 mls/hr CONT PRN 07/31/19 15:00 UNV Etomidate (Amidate) 20 mg 1X ONCE 07/30/19 23:45 07/30/19 23:46 DC 07/30/19 19:27 20 MG Famotidine (Pepcid Vial) 20 mg BID 07/31/19 21:00 UNV Fentanyl Citrate 30 ml @ 0 mls/hr CONT PRN 07/31/19 00:15 08/02/19 16:53 1.25 MLS/HR Fentanyl Citrate (Fentanyl 2ml Vial) 50 mcg PRN Q1HR PRN 07/30/19 19:15 07/31/19 00:11 DC Furosemide (Lasix) 40 mg 1X ONCE 08/01/19 22:30 08/01/19 22:31 DC 08/01/19 22:14 40 MG Heparin Sodium (Porcine) (Heparin Sodium) 2,200 unit PRN Q6HRS PRN 07/30/19 20:45 08/01/19 15:42 2,200 UNIT Heparin Sodium/ Dextrose 250 ml @ 0 mls/hr CONT PRN 07/31/19 00:00 UNV Info (Anti-Coagulation Monitoring By Pharmacy) 1 each PRN DAILY PRN 07/30/19 21:00 07/31/19 13:57 1 EACH Lidocaine HCl (Buffered Lidocaine 1%) 3 ml 1X ONCE 08/03/19 09:30 08/03/19 09:31 DC 08/03/19 09:28 3 ML Linezolid/Dextrose 300 ml @ 300 mls/hr Q12HR 07/31/19 09:00 08/03/19 08:15 300 MLS/HR Lorazepam (Ativan Inj) 2 mg STK-MED ONCE 07/30/19 18:14 07/30/19 18:14 DC Meropenem 1 gm/ Sodium Chloride 100 ml @ 200 mls/hr Q12HR 07/31/19 09:00 08/03/19 08:15 200 MLS/HR Micafungin Sodium 100 mg/Dextrose 100 ml @ 100 mls/hr Q24H 07/31/19 08:00 08/03/19 08:14 100 MLS/HR Midazolam HCl 50 mg/Sodium Chloride 50 ml @ 0 mls/hr CONT PRN 07/31/19 00:15 08/03/19 01:51 5 MLS/HR Morphine Sulfate (Morphine Sulfate) 4 mg PRN Q1HR PRN 07/30/19 19:15 07/31/19 00:11 DC Norepinephrine Bitartrate 8 mg/ Dextrose 258 ml @ 0 mls/hr CONT PRN 07/30/19 19:00 07/31/19 08:04 DC Ondansetron HCl (Zofran) 4 mg PRN Q6HRS PRN 07/31/19 15:00 Oseltamivir Phosphate (Tamiflu) 30 mg BID 07/31/19 09:00 08/05/19 08:59 08/03/19 08:14 30 MG Piperacillin Sod/ Tazobactam Sod 4.5 gm/Sodium Chloride 100 ml @ 200 mls/hr 1X ONCE 07/30/19 19:00 07/31/19 08:04 DC 07/30/19 19:06 200 MLS/HR Potassium Bicarbonate (Potassium Effervescent Tablet) 20 meq 1X ONCE 08/01/19 22:30 08/01/19 22:31 DC 08/01/19 22:14 20 MEQ Potassium Chloride/Water 100 ml @ 100 mls/hr Q1H 07/30/19 19:30 07/30/19 21:29 DC 07/30/19 21:31 100 MLS/HR Prochlorperazine (Compazine) 25 mg PRN Q12HR PRN 07/31/19 15:00 Rocuronium [place] (Zemuron) 50 mg 1X ONCE 07/30/19 23:45 07/30/19 23:46 DC 07/30/19 19:28 50 MG Sodium Bicarbonate 100 meq/Dextrose 1,100 ml @ 75 mls/hr 1X ONCE 07/30/19 23:00 07/31/19 13:39 DC 07/31/19 01:54 75 MLS/HR Sodium Chloride (Normal Saline Flush) 3 ml QSHIFT PRN 07/31/19 15:00 Thiamine HCl 100 mg/Dextrose 51 ml @ 102 mls/hr DAILY 07/31/19 17:00 08/03/19 08:14 102 MLS/HR Vancomycin HCl (Vanco Per Pharmacy) 1 each PRN DAILY PRN 07/31/19 02:30 07/31/19 08:06 DC 07/31/19 03:30 1 EACH Vancomycin HCl (Vancomycin Trough Level) 1 each 1X ONCE 08/01/19 07:30 08/01/19 07:31 Cancel Vancomycin HCl 1.25 gm/Sodium Chloride 250 ml @ 167 mls/hr Q12H 07/31/19 08:00 07/31/19 08:06 DC 07/31/19 07:57 167 MLS/HR Vancomycin HCl 2 gm/Sodium Chloride 500 ml @ 250 mls/hr 1X ONCE 07/30/19 19:15 07/30/19 21:14 DC 07/30/19 20:15 250 MLS/HR Vitamin A/Vitamin D (Vitamin A & D Ointment) 1 [place] PRN Q1HR PRN 07/31/19 16:45 08/03/19 08:14 1 [place] Lab Laboratory Tests Test 08/02/19 15:00 08/02/19 21:15 08/02/19 21:30 08/03/19 03:00 Heparin Anti-Xa Act, Unfractionated 0.22 IU/mL (0.30-0.70) 0.21 IU/mL (0.30-0.70) 0.45 IU/mL (0.30-0.70) Sodium Level 135 mmol/L (136-145) Potassium Level 3.4 mmol/L (3.5-5.1) Chloride Level 98 mmol/L (98-107) Carbon Dioxide Level 23 mmol/L (21-32) Anion Gap 14 (6-14) Blood Urea Nitrogen 94 mg/dL (8-26) Creatinine 4.9 mg/dL (0.7-1.3) Estimated GFR (Cockcroft-Gault) 11.9 Glucose Level 86 mg/dL (70-99) Calcium Level 7.9 mg/dL (8.5-10.1) Magnesium Level 2.5 mg/dL (1.8-2.4) Test 08/03/19 05:15 08/03/19 08:10 08/03/19 08:38 White Blood Count 13.3 x10^3/uL (4.0-11.0) Red Blood Count 3.54 x10^6/uL (4.30-5.70) Hemoglobin 11.2 g/dL (13.0-17.5) Hematocrit 33.6 % (39.0-53.0) Mean Corpuscular Volume 95 fL (79-100) Mean Corpuscular Hemoglobin 32 pg (25-35) Mean Corpuscular Hemoglobin Concent 33 g/dL (31-37) Red Cell Distribution Width 13.8 % (11.5-14.5) Platelet Count 234 x10^3/uL (140-400) Neutrophils (%) (Auto) 87 % (31-73) Lymphocytes (%) (Auto) 7 % (24-48) Monocytes (%) (Auto) 3 % (0-9) Eosinophils (%) (Auto) 3 % (0-3) Basophils (%) (Auto) 0 % (0-3) Neutrophils # (Auto) 11.6 x10^3/uL (1.8-7.7) Lymphocytes # (Auto) 0.9 x10^3/uL (1.0-4.8) Monocytes # (Auto) 0.4 x10^3/uL (0.0-1.1) Eosinophils # (Auto) 0.3 x10^3/uL (0.0-0.7) Basophils # (Auto) 0.0 x10^3/uL (0.0-0.2) Sodium Level 136 mmol/L (136-145) Potassium Level 3.5 mmol/L (3.5-5.1) Chloride Level 99 mmol/L (98-107) Carbon Dioxide Level 23 mmol/L (21-32) Anion Gap 14 (6-14) Blood Urea Nitrogen 104 mg/dL (8-26) Creatinine 5.0 mg/dL (0.7-1.3) Estimated GFR (Cockcroft-Gault) 11.7 Glucose Level 81 mg/dL (70-99) Calcium Level 8.0 mg/dL (8.5-10.1) Magnesium Level 2.8 mg/dL (1.8-2.4) O2 Saturation 97 % (92-99) Arterial Blood pH 7.36 (7.35-7.45) Arterial Blood pCO2 at Patient Temp 39 mmHg (35-46) Arterial Blood pO2 at Patient Temp 97 mmHg (65-108) Arterial Blood HCO3 21 mmol/L (21-28) Arterial Blood Base Excess -4 mmol/L (-3-3) FiO2 40 Heparin Anti-Xa Act, Unfractionated 0.40 IU/mL (0.30-0.70) Results All relevant outside records, renal labs, imaging studies, telemetry/EKG's were reviewed. Other 1. Bilateral interstitial and alveolar opacities, increased within the left mid and lower lung. 2. Small bilateral pleural effusions, unchanged. JOSE DAVID ANTON MD Aug 03, 2019 09:48
--- NOTE | 2019-08-03 10:37 | PDOC ---
PROGRESS NOTES History of Present Illness History of Present Illness VTE Prophylaxis Ordered VTE Prophylaxis Devices: Contraindicated VTE Pharmacological Prophylaxi: Yes Assessment/Plan Assessment/Plan impression 1. ACUTE HYPOXIC RESPIRATORY FAILURE 2. INFLUENZA A 3. Sepsis 4, PNA (pneumonia) 5. Altered mental status 6. ischemic right 4th toe 7. SONIA 8. a fib rvr 9. severe sepsis 10. homeless, self neglect due to lack of funds 11. right foot with LARGE LATERAL bullous lesion/gangrene plan admit ICU BED CONSULT PULM CONSULT ID Daptomycin and Merrem and Tamiflu renally dosed Zyvox Micafungin, for groin dermatitis, // yeast. VENT SUPPORT CONSULT NEUROLOGY dvt prophylaxis vascular surgery FOLLOWING Nephrology consult cardiology consult cardizem drip Let the tissues demarcate and possibly areas heal. . Will continue heparin drip and Rooke boots. GUARDED PROGNOSIS 34 min cc time Vitals Vitals Vital Signs Date Time Temp Pulse Resp B/P (MAP) Pulse Ox O2 Delivery O2 Flow Rate FiO2 08/03/19 10:10 98 Ventilator 08/03/19 10:00 78 16 123/61 (81) 08/03/19 08:00 98.6 98.6 Physical Exam Physical Exam GENERAL: Sedated, orally intubated/vent HEENT: Pupils equal, ETT and OGT in place. NECK: Supple. LUNGS: Diminished aeration bases HEART: S1, S2, irregular rhythm. ABDOMEN: Obese, soft, mildly distended : Valladares in place, scrotal swelling, erythema, EXTREMITIES: Ischemic changes right foot with LARGE LATERAL bullous lesion/gangrene; Left foot pink. Rooke boots bilaterally DERMATOLOGIC: No generalized rash. NEUROLOGIC: Sedated and intubated. RIJ without signs of complications PIVs General: Other (sedated) Heart: Other (heart rate is irregular) Lungs: Crackles Abdomen: Normal bowel sounds, Soft Extremities: No cyanosis, Other (ischemic right 4th toe) Skin: Other (right 4th toe lesion) Labs LABS Procedure Result GRAM STAIN WHITE BLOOD CELLS Final Few GRAM STAIN EPITHELIAL CELLS Final None seen GRAM STAIN RESULT 1 Final Comment Few gram positive cocci GRAM STAIN RESULT 2 Final Comment Few gram positive rods. GRAM STAIN RESULT 3 Preliminary Test not performed GRAM STAIN RESULT 4 Preliminary Test not performed GRAM STAIN EVALUATION Final Comment This specimen is of good quality and is acceptable for routine bacterial culture. Performed at: [facility] - [facility] [address], [place], [place] [id number] [employer] Inspector: MILADY Wang MD, Phone: [phone] SPUTUM CULTURE-LC Final Preliminary report Final report SPUTUM CULT RES 1 Final Streptococcus species Comment PORTABLE CHEST 1V History: Respiratory failure Comparison: August 02, 2019 Findings: Bilateral interstitial and alveolar opacities, increased within the left mid and lower lung. Small bilateral pleural effusions, unchanged. Stable endotracheal tube, enteric tube and right IJ central line. Impression: 1. Bilateral interstitial and alveolar opacities, increased within the left mid and lower lung. 2. Small bilateral pleural effusions, unchanged. Electronically signed by: Tramaine Davis DO (08/03/2019 4:57 AM) [id number] DICTATED and SIGNED BY: TRAMAINE DAVIS DO DATE: 08/03/19 0457 Laboratory Tests Test 08/02/19 15:00 08/02/19 21:15 08/02/19 21:30 08/03/19 03:00 Heparin Anti-Xa Act, Unfractionated 0.22 IU/mL (0.30-0.70) 0.21 IU/mL (0.30-0.70) 0.45 IU/mL (0.30-0.70) Sodium Level 135 mmol/L (136-145) Potassium Level 3.4 mmol/L (3.5-5.1) Chloride Level 98 mmol/L (98-107) Carbon Dioxide Level 23 mmol/L (21-32) Anion Gap 14 (6-14) Blood Urea Nitrogen 94 mg/dL (8-26) Creatinine 4.9 mg/dL (0.7-1.3) Estimated GFR (Cockcroft-Gault) 11.9 Glucose Level 86 mg/dL (70-99) Calcium Level 7.9 mg/dL (8.5-10.1) Magnesium Level 2.5 mg/dL (1.8-2.4) Test 08/03/19 05:15 08/03/19 08:10 08/03/19 08:38 White Blood Count 13.3 x10^3/uL (4.0-11.0) Red Blood Count 3.54 x10^6/uL (4.30-5.70) Hemoglobin 11.2 g/dL (13.0-17.5) Hematocrit 33.6 % (39.0-53.0) Mean Corpuscular Volume 95 fL (79-100) Mean Corpuscular Hemoglobin 32 pg (25-35) Mean Corpuscular Hemoglobin Concent 33 g/dL (31-37) Red Cell Distribution Width 13.8 % (11.5-14.5) Platelet Count 234 x10^3/uL (140-400) Neutrophils (%) (Auto) 87 % (31-73) Lymphocytes (%) (Auto) 7 % (24-48) Monocytes (%) (Auto) 3 % (0-9) Eosinophils (%) (Auto) 3 % (0-3) Basophils (%) (Auto) 0 % (0-3) Neutrophils # (Auto) 11.6 x10^3/uL (1.8-7.7) Lymphocytes # (Auto) 0.9 x10^3/uL (1.0-4.8) Monocytes # (Auto) 0.4 x10^3/uL (0.0-1.1) Eosinophils # (Auto) 0.3 x10^3/uL (0.0-0.7) Basophils # (Auto) 0.0 x10^3/uL (0.0-0.2) Sodium Level 136 mmol/L (136-145) Potassium Level 3.5 mmol/L (3.5-5.1) Chloride Level 99 mmol/L (98-107) Carbon Dioxide Level 23 mmol/L (21-32) Anion Gap 14 (6-14) Blood Urea Nitrogen 104 mg/dL (8-26) Creatinine 5.0 mg/dL (0.7-1.3) Estimated GFR (Cockcroft-Gault) 11.7 Glucose Level 81 mg/dL (70-99) Calcium Level 8.0 mg/dL (8.5-10.1) Magnesium Level 2.8 mg/dL (1.8-2.4) O2 Saturation 97 % (92-99) Arterial Blood pH 7.36 (7.35-7.45) Arterial Blood pCO2 at Patient Temp 39 mmHg (35-46) Arterial Blood pO2 at Patient Temp 97 mmHg (65-108) Arterial Blood HCO3 21 mmol/L (21-28) Arterial Blood Base Excess -4 mmol/L (-3-3) FiO2 40 Heparin Anti-Xa Act, Unfractionated 0.40 IU/mL (0.30-0.70) Assessment and Plan Assessmemt and Plan Problems Medical Problems: (1) Altered mental status Status: Acute Comment Review of Relevant I have reviewed the following items hay (where applicable) has been applied. Labs Laboratory Tests Test 08/01/19 15:00 08/01/19 22:20 08/02/19 05:00 08/02/19 07:20 Heparin Anti-Xa Act, Unfractionated 0.16 IU/mL (0.30-0.70) 0.26 IU/mL (0.30-0.70) White Blood Count 15.7 x10^3/uL (4.0-11.0) Red Blood Count 3.49 x10^6/uL (4.30-5.70) Hemoglobin 11.2 g/dL (13.0-17.5) Hematocrit 33.4 % (39.0-53.0) Mean Corpuscular Volume 96 fL (79-100) Mean Corpuscular Hemoglobin 32 pg (25-35) Mean Corpuscular Hemoglobin Concent 34 g/dL (31-37) Red Cell Distribution Width 14.0 % (11.5-14.5) Platelet Count 251 x10^3/uL (140-400) Neutrophils (%) (Auto) 89 % (31-73) Lymphocytes (%) (Auto) 8 % (24-48) Monocytes (%) (Auto) 2 % (0-9) Eosinophils (%) (Auto) 2 % (0-3) Basophils (%) (Auto) 0 % (0-3) Neutrophils # (Auto) 13.9 x10^3/uL (1.8-7.7) Lymphocytes # (Auto) 1.2 x10^3/uL (1.0-4.8) Monocytes # (Auto) 0.2 x10^3/uL (0.0-1.1) Eosinophils # (Auto) 0.2 x10^3/uL (0.0-0.7) Basophils # (Auto) 0.0 x10^3/uL (0.0-0.2) Sodium Level 136 mmol/L (136-145) Potassium Level 3.6 mmol/L (3.5-5.1) Chloride Level 99 mmol/L (98-107) Carbon Dioxide Level 23 mmol/L (21-32) Anion Gap 14 (6-14) Blood Urea Nitrogen 81 mg/dL (8-26) Creatinine 4.5 mg/dL (0.7-1.3) Estimated GFR (Cockcroft-Gault) 13.2 BUN/Creatinine Ratio 18 (6-20) Glucose Level 89 mg/dL (70-99) Calcium Level 7.5 mg/dL (8.5-10.1) Total Bilirubin 2.3 mg/dL (0.2-1.0) Aspartate Amino Transf (AST/SGOT) 66 U/L (15-37) Alanine Aminotransferase (ALT/SGPT) 21 U/L (16-63) Alkaline Phosphatase 58 U/L (46-116) Total Protein 5.3 g/dL (6.4-8.2) Albumin 2.5 g/dL (3.4-5.0) Albumin/Globulin Ratio 0.9 (1.0-1.7) O2 Saturation 97 % (92-99) Arterial Blood pH 7.37 (7.35-7.45) Arterial Blood pCO2 at Patient Temp 38 mmHg (35-46) Arterial Blood pO2 at Patient Temp 94 mmHg (65-108) Arterial Blood HCO3 22 mmol/L (21-28) Arterial Blood Base Excess -3 mmol/L (-3-3) FiO2 40% Test 08/02/19 07:25 08/02/19 15:00 08/02/19 21:15 08/02/19 21:30 Heparin Anti-Xa Act, Unfractionated 0.25 IU/mL (0.30-0.70) 0.22 IU/mL (0.30-0.70) 0.21 IU/mL (0.30-0.70) Sodium Level 135 mmol/L (136-145) Potassium Level 3.4 mmol/L (3.5-5.1) Chloride Level 98 mmol/L (98-107) Carbon Dioxide Level 23 mmol/L (21-32) Anion Gap 14 (6-14) Blood Urea Nitrogen 94 mg/dL (8-26) Creatinine 4.9 mg/dL (0.7-1.3) Estimated GFR (Cockcroft-Gault) 11.9 Glucose Level 86 mg/dL (70-99) Calcium Level 7.9 mg/dL (8.5-10.1) Magnesium Level 2.5 mg/dL (1.8-2.4) Test 08/03/19 03:00 08/03/19 05:15 08/03/19 08:10 08/03/19 08:38 Heparin Anti-Xa Act, Unfractionated 0.45 IU/mL (0.30-0.70) 0.40 IU/mL (0.30-0.70) White Blood Count 13.3 x10^3/uL (4.0-11.0) Red Blood Count 3.54 x10^6/uL (4.30-5.70) Hemoglobin 11.2 g/dL (13.0-17.5) Hematocrit 33.6 % (39.0-53.0) Mean Corpuscular Volume 95 fL (79-100) Mean Corpuscular Hemoglobin 32 pg (25-35) Mean Corpuscular Hemoglobin Concent 33 g/dL (31-37) Red Cell Distribution Width 13.8 % (11.5-14.5) Platelet Count 234 x10^3/uL (140-400) Neutrophils (%) (Auto) 87 % (31-73) Lymphocytes (%) (Auto) 7 % (24-48) Monocytes (%) (Auto) 3 % (0-9) Eosinophils (%) (Auto) 3 % (0-3) Basophils (%) (Auto) 0 % (0-3) Neutrophils # (Auto) 11.6 x10^3/uL (1.8-7.7) Lymphocytes # (Auto) 0.9 x10^3/uL (1.0-4.8) Monocytes # (Auto) 0.4 x10^3/uL (0.0-1.1) Eosinophils # (Auto) 0.3 x10^3/uL (0.0-0.7) Basophils # (Auto) 0.0 x10^3/uL (0.0-0.2) Sodium Level 136 mmol/L (136-145) Potassium Level 3.5 mmol/L (3.5-5.1) Chloride Level 99 mmol/L (98-107) Carbon Dioxide Level 23 mmol/L (21-32) Anion Gap 14 (6-14) Blood Urea Nitrogen 104 mg/dL (8-26) Creatinine 5.0 mg/dL (0.7-1.3) Estimated GFR (Cockcroft-Gault) 11.7 Glucose Level 81 mg/dL (70-99) Calcium Level 8.0 mg/dL (8.5-10.1) Magnesium Level 2.8 mg/dL (1.8-2.4) O2 Saturation 97 % (92-99) Arterial Blood pH 7.36 (7.35-7.45) Arterial Blood pCO2 at Patient Temp 39 mmHg (35-46) Arterial Blood pO2 at Patient Temp 97 mmHg (65-108) Arterial Blood HCO3 21 mmol/L (21-28) Arterial Blood Base Excess -4 mmol/L (-3-3) FiO2 40 Laboratory Tests Test 08/02/19 15:00 08/02/19 21:15 08/02/19 21:30 08/03/19 03:00 Heparin Anti-Xa Act, Unfractionated 0.22 IU/mL (0.30-0.70) 0.21 IU/mL (0.30-0.70) 0.45 IU/mL (0.30-0.70) Sodium Level 135 mmol/L (136-145) Potassium Level 3.4 mmol/L (3.5-5.1) Chloride Level 98 mmol/L (98-107) Carbon Dioxide Level 23 mmol/L (21-32) Anion Gap 14 (6-14) Blood Urea Nitrogen 94 mg/dL (8-26) Creatinine 4.9 mg/dL (0.7-1.3) Estimated GFR (Cockcroft-Gault) 11.9 Glucose Level 86 mg/dL (70-99) Calcium Level 7.9 mg/dL (8.5-10.1) Magnesium Level 2.5 mg/dL (1.8-2.4) Test 08/03/19 05:15 08/03/19 08:10 08/03/19 08:38 White Blood Count 13.3 x10^3/uL (4.0-11.0) Red Blood Count 3.54 x10^6/uL (4.30-5.70) Hemoglobin 11.2 g/dL (13.0-17.5) Hematocrit 33.6 % (39.0-53.0) Mean Corpuscular Volume 95 fL (79-100) Mean Corpuscular Hemoglobin 32 pg (25-35) Mean Corpuscular Hemoglobin Concent 33 g/dL (31-37) Red Cell Distribution Width 13.8 % (11.5-14.5) Platelet Count 234 x10^3/uL (140-400) Neutrophils (%) (Auto) 87 % (31-73) Lymphocytes (%) (Auto) 7 % (24-48) Monocytes (%) (Auto) 3 % (0-9) Eosinophils (%) (Auto) 3 % (0-3) Basophils (%) (Auto) 0 % (0-3) Neutrophils # (Auto) 11.6 x10^3/uL (1.8-7.7) Lymphocytes # (Auto) 0.9 x10^3/uL (1.0-4.8) Monocytes # (Auto) 0.4 x10^3/uL (0.0-1.1) Eosinophils # (Auto) 0.3 x10^3/uL (0.0-0.7) Basophils # (Auto) 0.0 x10^3/uL (0.0-0.2) Sodium Level 136 mmol/L (136-145) Potassium Level 3.5 mmol/L (3.5-5.1) Chloride Level 99 mmol/L (98-107) Carbon Dioxide Level 23 mmol/L (21-32) Anion Gap 14 (6-14) Blood Urea Nitrogen 104 mg/dL (8-26) Creatinine 5.0 mg/dL (0.7-1.3) Estimated GFR (Cockcroft-Gault) 11.7 Glucose Level 81 mg/dL (70-99) Calcium Level 8.0 mg/dL (8.5-10.1) Magnesium Level 2.8 mg/dL (1.8-2.4) O2 Saturation 97 % (92-99) Arterial Blood pH 7.36 (7.35-7.45) Arterial Blood pCO2 at Patient Temp 39 mmHg (35-46) Arterial Blood pO2 at Patient Temp 97 mmHg (65-108) Arterial Blood HCO3 21 mmol/L (21-28) Arterial Blood Base Excess -4 mmol/L (-3-3) FiO2 40 Heparin Anti-Xa Act, Unfractionated 0.40 IU/mL (0.30-0.70) Microbiology 08/02/19 Blood Culture - Preliminary, Resulted NO GROWTH AFTER 1 DAY 07/31/19 - Final, Resulted 07/31/19 - Final, Resulted 07/31/19 - Final, Resulted 07/31/19 - Preliminary, Resulted 07/31/19 - Preliminary, Resulted 07/31/19 - Preliminary, Resulted 07/31/19 Gram Stain Evaluation - Final, Resulted 07/31/19 Sputum Culture, Resulted Pending 07/30/19 Urine Culture - Final, Complete 07/30/19 Urine Culture Result 1 (SONIA) - Final, Complete Medications Current Medications Albuterol/ Ipratropium (Duoneb) 3 ml 1X ONCE NEB Last administered on 07/30/19at 18:00; Start 07/30/19 at 18:00; Stop 07/30/19 at 18:01; Status DC Albuterol Sulfate (Ventolin Neb Soln) 10 mg 1X ONCE CONT NEB Last administered on 07/30/19at 18:00; Start 07/30/19 at 18:00; Stop 07/30/19 at 18:01; Status DC Morphine Sulfate (Morphine Sulfate) 2 mg PRN Q15MIN PRN IV/SQ PAIN GREATER THAN 3/10 Last administered on 07/30/19at 18:08; Start 07/30/19 at 18:00; Stop 07/31/19 at 00:10; Status DC Diltiazem HCl (Cardizem Iv Push) 10 mg 1X ONCE IVP Last administered on 07/30/19at 18:01; Start 07/30/19 at 18:00; Stop 07/30/19 at 18:01; Status DC Diltiazem HCl 125 mg/Sodium Chloride 125 ml @ 5 mls/hr 1X ONCE IV Last administered on 07/30/19at 18:36; Start 07/30/19 at 18:00; Stop 07/31/19 at 18:59; Status DC Lorazepam (Ativan Inj) 2 mg 1X ONCE IVP Last administered on 07/30/19at 18:35; Start 07/30/19 at 18:15; Stop 07/30/19 at 18:16; Status DC Lorazepam (Ativan Inj) 2 mg STK-MED ONCE .ROUTE ; Start 07/30/19 at 18:14; Stop 07/30/19 at 18:14; Status DC Digoxin (Lanoxin) 250 mcg 1X ONCE IV Last administered on 07/30/19at 18:53; Start 07/30/19 at 18:45; Stop 07/30/19 at 18:46; Status DC Amiodarone HCl 150 mg/Dextrose 103 ml @ 618 mls/hr 1X ONCE IV Last administered on 07/30/19at 20:07; Start 07/30/19 at 18:45; Stop 07/30/19 at 18:54; Status DC Amiodarone HCl 450 mg/Dextrose 259 ml @ 0 mls/hr CONT PRN IV SEE I/O RECORD Last administered on 07/30/19at 20:21; Start 07/30/19 at 18:45 Sodium Chloride 1,000 ml @ 1,000 mls/hr 1X ONCE IV Last administered on 07/30at 18:20; Start 07/30/19 at 18:45; Stop 07/31/19 at 02:15; Status DC Sodium Chloride 2,130 ml @ 2,130 mls/hr Q1H IV Last administered on 07/30/19at 19:02; Start 07/30/19 at 18:53; Stop 07/31/19 at 02:15; Status DC Piperacillin Sod/ Tazobactam Sod 4.5 gm/Sodium Chloride 100 ml @ 200 mls/hr 1X ONCE IV Last administered on 07/30/19at 19:06; Start 07/30/19 at 19:00; Stop 07/31/19 at 08:04; Status DC Vancomycin HCl (Vanco Per Pharmacy) 1 each 1X ONCE MC ; Start 07/30/19 at 19:00; Stop 07/31/19 at 08:04; Status DC Norepinephrine Bitartrate 8 mg/ Dextrose 258 ml @ 0 mls/hr CONT PRN IV PER PROTOCOL; Start 07/30/19 at 19:00; Stop 07/31/19 at 08:04; Status DC Potassium Chloride/Water 100 ml @ 100 mls/hr Q1H IV Last administered on 07/30/19at 21:31; Start 07/30/19 at 19:30; Stop 07/30/19 at 21:29; Status DC Vancomycin HCl 2 gm/Sodium Chloride 500 ml @ 250 mls/hr 1X ONCE IV Last administered on 07/30/19at 20:15; Start 07/30/19 at 19:15; Stop 07/30/19 at 21:14; Status DC Fentanyl Citrate (Fentanyl 2ml Vial) 25 mcg PRN Q1HR PRN IV SEE COMMENTS; Start 07/30/19 at 19:15; Stop 07/31/19 at 00:11; Status DC Fentanyl Citrate (Fentanyl 2ml Vial) 50 mcg PRN Q1HR PRN IV SEE COMMENTS; Start 07/30/19 at 19:15; Stop 07/31/19 at 00:11; Status DC Chlorhexidine Gluconate (Peridex) 15 ml BID MM Last administered on 08/03/19at 08:14; Start 07/30/19 at 21:00 Morphine Sulfate (Morphine Sulfate) 2 mg PRN Q1HR PRN IV SEE COMMENTS.; Start 07/30/19 at 19:15; Stop 07/31/19 at 00:11; Status DC Morphine Sulfate (Morphine Sulfate) 4 mg PRN Q1HR PRN IV SEE COMMENTS.; Start 07/30/19 at 19:15; Stop 07/31/19 at 00:11; Status DC Midazolam HCl 50 mg/Sodium Chloride 50 ml @ 0 mls/hr CONT PRN IV SEE PROTOCOL Last administered on 07/30/19at 20:40; Start 07/30/19 at 19:15; Stop 07/31/19 at 00:10; Status DC Acetaminophen (Tylenol Supp) 650 mg 1X ONCE AK Last administered on 07/30/19at 20:49; Start 07/30/19 at 20:15; Stop 07/30/19 at 20:16; Status DC Ondansetron HCl (Zofran) 4 mg PRN Q8HRS PRN IV NAUSEA/VOMITING; Start 07/30/19 at 20:30; Stop 07/31/19 at 20:29; Status DC Acetaminophen (Tylenol) 650 mg PRN Q4HRS PRN PO FEVER Last administered on 07/31/19at 12:49; Start 07/30/19 at 20:30; Stop 07/31/19 at 20:29; Status DC Heparin Sodium/ Dextrose 250 ml @ 0 mls/hr CONT PRN IV PER PROTOCOL Last administered on 08/03/19at 06:01; Start 07/30/19 at 20:45 Heparin Sodium (Porcine) (Heparin Sodium) 2,200 unit PRN Q6HRS PRN IV FOR UFH LEVEL LESS THAN 0.2 Last administered on 08/01/19at 15:42; Start 07/30/19 at 20:45 Info (Anti-Coagulation Monitoring By Pharmacy) 1 each PRN DAILY PRN MC SEE COMMENTS Last administered on 07/31/19at 13:57; Start 07/30/19 at 21:00 Etomidate (Amidate) 20 mg STK-MED ONCE IV ; Start 07/30/19 at 21:15; Stop 07/30/19 at 21:16; Status DC Rocuronium Girdler (Zemuron) 50 mg STK-MED ONCE .ROUTE ; Start 07/30/19 at 21:16; Stop 07/30/19 at 21:16; Status DC Diltiazem HCl 125 mg/Sodium Chloride 125 ml @ 5 mls/hr CONT PRN IV SEE I/O RECORD; Start 07/30/19 at 22:30; Stop 07/31/19 at 06:01; Status DC Sodium Bicarbonate 100 meq/Dextrose 1,100 ml @ 75 mls/hr 1X ONCE IV Last administered on 07/31/19at 01:54; Start 07/30/19 at 23:00; Stop 07/31/19 at 13:39; Status DC Etomidate (Amidate) 20 mg 1X ONCE IV Last administered on 07/30/19at 19:27; Start 07/30/19 at 23:45; Stop 07/30/19 at 23:46; Status DC Rocuronium Girdler (Zemuron) 50 mg 1X ONCE IV Last administered on 07/30/19at 19:28; Start 07/30/19 at 23:45; Stop 07/30/19 at 23:46; Status DC Rocuronium Girdler (Zemuron) 50 mg 1X ONCE IV Last administered on 07/30/19at 19:28; Start 07/30/19 at 23:45; Stop 07/30/19 at 23:46; Status DC Digoxin (Lanoxin) 250 mcg 1X ONCE IV Last administered on 07/31/19at 00:12; Start 07/31/19 at 00:30; Stop 07/31/19 at 00:31; Status DC Heparin Sodium/ Dextrose 250 ml @ 0 mls/hr CONT PRN IV SEE I/O RECORD; Start 07/31/19 at 00:00; Status UNV Fentanyl Citrate 30 ml @ 0 mls/hr CONT PRN IV SEE PROTOCOL Last administered on 08/02/19at 16:53; Start 07/31/19 at 00:15 Midazolam HCl 50 mg/Sodium Chloride 50 ml @ 0 mls/hr CONT PRN IV SEE PROTOCOL Last administered on 08/03/19at 01:51; Start 07/31/19 at 00:15 Diltiazem HCl 125 mg/Sodium Chloride 125 ml @ 5 mls/hr CONT PRN IV SEE I/O RE CORD Last administered on 08/01/19at 03:03; Start 07/31/19 at 01:00 Albuterol/ Ipratropium (Duoneb) 3 ml Q4HRS NEB Last administered on 08/03/19at 08:10; Start 07/31/19 at 04:00 Sodium Chloride 1,000 ml @ 120 mls/hr Q8H20M IV Last administered on 07/31/19at 02:30; Start 07/31/19 at 02:30; Stop 07/31/19 at 13:55; Status DC Vancomycin HCl (Vanco Per Pharmacy) 1 each PRN DAILY PRN MC SEE COMMENTS Last administered on 07/31/19at 03:30; Start 07/31/19 at 02:30; Stop 07/31/19 at 08:06; Status DC Vancomycin HCl 1.25 gm/Sodium Chloride 250 ml @ 167 mls/hr Q12H IV Last administered on 07/31/19at 07:57; Start 07/31/19 at 08:00; Stop 07/31/19 at 08:06; Status DC Vancomycin HCl (Vancomycin Trough Level) 1 each 1X ONCE MC ; Start 08/01/19 at 07:30; Stop 08/01/19 at 07:31; Status Cancel Micafungin Sodium 100 mg/Dextrose 100 ml @ 100 mls/hr Q24H IV Last administered on 08/03/19at 08:14; Start 07/31/19 at 08:00 Oseltamivir Phosphate (Tamiflu) 30 mg BID PO Last administered on 08/03/19 08:14; Start 07/31/19 at 09:00; Stop 08/05/19 at 08:59 Linezolid/Dextrose 300 ml @ 300 mls/hr Q12HR IV Last administered on 08/03/19 08:15; Start 07/31/19 at 09:00 Daptomycin 490 mg/ Sodium Chloride 50 ml @ 100 mls/hr Q24H IV Last administered on 07/31/19at 12:40; Start 07/31/19 at 10:00; Stop 08/01/19 at 09:01; Status DC Meropenem 1 gm/ Sodium Chloride 100 ml @ 200 mls/hr Q12HR IV Last administered on 08/03/19at 08:15; Start 07/31/19 at 09:00 Potassium Bicarbonate (Potassium Effervescent Tablet) 40 meq 1X ONCE PEG Last administered on 07/31/19at 10:54; Start 07/31/19 at 10:30; Stop 07/31/19 at 10:43; Status DC Famotidine (Pepcid Vial) 20 mg QHS IVP Last administered on 08/02/19at 21:11; Start 07/31/19 at 21:00 Albumin Human 100 ml @ 100 mls/hr TID IV Last administered on 08/02/19at 09:44; Start 07/31/19 at 14:30; Stop 08/02/19 at 09:59; Status DC Sodium Chloride 2,340 ml @ 2,340 mls/hr Q1H IV ; Start 07/31/19 at 14:48; Status UNV Sodium Chloride 500 ml @ 1,000 mls/hr PRN Q30MIN PRN IV SEE COMMENTS; Start 07/31/19 at 15:00; Status UNV Dobutamine HCl/ Dextrose 250 ml @ 0 mls/hr CONT PRN IV SEE I/O RECORD; Start 07/31/19 at 15:00; Status UNV Ondansetron HCl (Zofran) 4 mg PRN Q6HRS PRN IV NAUSEA/VOMITING; Start 07/31/19 at 15:00 Prochlorperazine (Compazine) 25 mg PRN Q12HR PRN AK NAUSEA/VOMITING; Start 07/31/19 at 15:00 Famotidine (Pepcid Vial) 20 mg BID IVP ; Start 07/31/19 at 21:00; Status UNV Sodium Chloride (Normal Saline Flush) 3 ml QSHIFT PRN IV AFTER MEDS AND BLOOD DRAWS; Start 07/31/19 at 15:00 Bisacodyl (Dulcolax Supp) 10 mg PRN DAILY PRN AK CONSTIPATION; Start 07/31/19 at 15:00 Thiamine HCl 100 mg/Dextrose 51 ml @ 102 mls/hr DAILY IV Last administered on 08/03/19at 08:14; Start 07/31/19 at 17:00 Vitamin A/Vitamin D (Vitamin A & D Ointment) 1 milton PRN Q1HR PRN TP SKIN PROTE CTION Last administered on 08/03/19at 08:14; Start 07/31/19 at 16:45 Daptomycin 490 mg/ Sodium Chloride 50 ml @ 100 mls/hr Q48H IV Last administered on 08/01/19at 10:36; Start 08/01/19 at 10:00 Furosemide (Lasix) 40 mg 1X ONCE IVP Last administered on 08/01/19at 22:14; Start 08/01/19 at 22:30; Stop 08/01/19 at 22:31; Status DC Potassium Bicarbonate (Potassium Effervescent Tablet) 20 meq 1X ONCE PEG Last administered on 08/01/19at 22:14; Start 08/01/19 at 22:30; Stop 08/01/19 at 22:31; Status DC Lidocaine HCl (Buffered Lidocaine 1%) 3 ml STK-MED ONCE .ROUTE ; Start 08/03/19 at 09:05; Stop 08/03/19 at 09:05; Status DC Lidocaine HCl (Buffered Lidocaine 1%) 3 ml 1X ONCE INJ Last administered on 08/03/19at 09:28; Start 08/03/19 at 09:30; Stop 08/03/19 at 09:31; Status DC Multivitamins/ Minerals Therapeutic (Centrum Multivit-Mineral Liq) 5 ml DAILY PEG ; Start 08/03/19 at 12:00 Active Scripts Active Proair Hfa (Albuterol Sulfate) 8.5 Gm Hfa.aer.ad 2 Puff IH PRN Q4-6HRS PRN 21 Days Tessalon Perle (Benzonatate) 100 Mg Capsule 1 Cap PO TID Prednisone 50 Mg Tablet 1 Tab PO DAILY Cyclobenzaprine Hcl 5 Mg Tablet 1 Tab PO TID Ibuprofen 800 Mg Tablet 800 Mg PO Q6-8HRS Zofran Odt (Ondansetron) 4 Mg Tab.rapdis 1 Tab SL Q8HRS Ultram (Tramadol Hcl) 50 Mg Tablet 1 Tab PO Q6HRS Vitals/I & O Vital Sign - Last 24 Hours 08/02/19 08/02/19 08/02/19 08/02/19 11:00 11:33 12:00 12:00 Pulse 82 82 Resp 14 14 B/P (MAP) 116/64 (81) 119/64 (82) Pulse Ox 98 97 96 O2 Delivery Ventilator Ventilator Ventilator Mechanical Ventilator 08/02/19 08/02/19 08/02/19 08/02/19 12:45 13:00 14:00 15:00 Temp 98.9 98.9 Pulse 82 82 87 Resp 14 14 14 B/P (MAP) 118/65 (82) 119/68 (85) 119/57 (77) Pulse Ox 97 97 97 98 O2 Delivery Ventilator Ventilator Ventilator Ventilator 08/02/19 08/02/19 08/02/19 08/02/19 15:25 15:41 16:00 17:00 Temp 98.6 98.6 Pulse 87 88 Resp 14 14 B/P (MAP) 120/60 (80) 128/65 (86) Pulse Ox 98 98 98 O2 Delivery Ventilator Mechanical Ventilator Ventilator Ventilator 08/02/19 08/02/19 08/02/19 08/02/19 18:00 18:02 19:00 19:44 Pulse 89 89 Resp 14 14 B/P (MAP) 135/52 (79) 132/66 (88) Pulse Ox 98 97 94 96 O2 Delivery Ventilator Ventilator Ventilator Ventilator 08/02/19 08/02/19 08/02/19 08/02/19 20:00 20:00 21:00 21:00 Temp 98.9 98.9 Pulse 88 86 Resp 16 18 B/P (MAP) 127/68 (87) 128/64 (85) Pulse Ox 98 96 97 O2 Delivery Mechanical Ventilator Ventilator Ventilator Ventilator 08/02/19 08/02/19 08/02/19 08/02/19 22:00 23:00 23:00 23:59 Pulse 84 83 Resp 16 16 B/P (MAP) 132/66 (88) 125/67 (86) Pulse Ox 97 97 97 O2 Delivery Ventilator Ventilator Ventilator Mechanical Ventilator 08/03/19 08/03/19 08/03/19 08/03/19 00:00 01:00 02:00 02:37 Temp 98.8 98.8 Pulse 84 84 79 Resp 16 19 17 B/P (MAP) 118/61 (80) 127/63 (84) 144/73 (96) Pulse Ox 97 97 98 97 O2 Delivery Ventilator Ventilator Ventilator Ventilator 08/03/19 08/03/19 08/03/19 08/03/19 03:00 04:00 04:00 05:00 Temp 98.5 98.5 Pulse 81 87 81 Resp 17 16 17 B/P (MAP) 134/68 (90) 134/66 (88) 121/63 (82) Pulse Ox 98 98 98 O2 Delivery Ventilator Ventilator Mechanical Ventilator Ventilator 08/03/19 08/03/19 08/03/19 08/03/19 05:35 06:00 07:00 08:00 Pulse 80 80 Resp 17 17 B/P (MAP) 120/63 (82) 109/61 (77) Pulse Ox 99 99 99 O2 Delivery Ventilator Ventilator Ventilator Mechanical Ventilator 08/03/19 08/03/19 08/03/19 08/03/19 08:00 08:10 09:00 10:00 Temp 98.6 98.6 Pulse 78 78 78 Resp 16 16 16 B/P (MAP) 119/64 (82) 134/69 (90) 123/61 (81) Pulse Ox 98 98 99 99 O2 Delivery Ventilator Ventilator Ventilator Ventilator 08/03/19 10:10 Pulse Ox 98 O2 Delivery Ventilator Intake and Output 08/02/19 08/02/19 08/03/19 15:00 23:00 07:00 Intake Total 551 ml 816 ml 571 ml Output Total 200 ml 400 ml Balance 551 ml 616 ml 171 ml Nutrition Consultation Dietary Evaluation: Recommendations by RD: Dietary education by RD, Increase Calorie Intake Comments: REC TFs per following: VitalAF@20 ml/hr, increase 10 ml q8 hrs as tolerated to goal rate 65 ml/hr w/200 ml water flushes q4 hrs or flushes per MD Expected Outcomes/Goals: Initiation of TFs within 24 - 48 hrs of intubation Malnutrition Findings: Food and Nutrition Intake (Mod: <75% est energy req 7days Body Fat Depletion (Non Severe: Mild Depletion Weight Status: Appropriate CORY SCHMIDT MD Aug 03, 2019 10:37
[2019-08-03] MEDS: DAPTOmycin (GENERIC) IVPB 490 MG in IV NORMAL SALINE 50ML 50 ML IV SCH (11:19)
[2019-08-03] MEDS: MULTIVITAMINS,THERAPEUTIC 5 ML ORAL LIQUID. PEG SCH (12:00)
--- NOTE | 2019-08-03 12:58 | NUR ---
SS following up with discharge planning. Pt remains on the vent at this time. SS will continue to follow for discharge planning.
--- NOTE | 2019-08-03 13:22 | PDOC ---
PULMONARY PROGRESS NOTES Subjective SEDATED ON AC MODE IV HEPARIN IV CARDIZEM Vitals Vital Signs Date Time Temp Pulse Resp B/P (MAP) Pulse Ox O2 Delivery O2 Flow Rate FiO2 08/03/19 12:14 97 Ventilator 08/03/19 11:00 80 16 128/72 (90) 08/03/19 08:00 98.6 98.6 Lungs: Crackles Cardiovascular: S1, S2 Abdomen: Soft Extremities: Other (PVD) Skin: Warm Labs Laboratory Tests Test 08/01/19 15:00 08/01/19 22:20 08/02/19 05:00 08/02/19 07:20 Heparin Anti-Xa Act, Unfractionated 0.16 IU/mL (0.30-0.70) 0.26 IU/mL (0.30-0.70) White Blood Count 15.7 x10^3/uL (4.0-11.0) Red Blood Count 3.49 x10^6/uL (4.30-5.70) Hemoglobin 11.2 g/dL (13.0-17.5) Hematocrit 33.4 % (39.0-53.0) Mean Corpuscular Volume 96 fL (79-100) Mean Corpuscular Hemoglobin 32 pg (25-35) Mean Corpuscular Hemoglobin Concent 34 g/dL (31-37) Red Cell Distribution Width 14.0 % (11.5-14.5) Platelet Count 251 x10^3/uL (140-400) Neutrophils (%) (Auto) 89 % (31-73) Lymphocytes (%) (Auto) 8 % (24-48) Monocytes (%) (Auto) 2 % (0-9) Eosinophils (%) (Auto) 2 % (0-3) Basophils (%) (Auto) 0 % (0-3) Neutrophils # (Auto) 13.9 x10^3/uL (1.8-7.7) Lymphocytes # (Auto) 1.2 x10^3/uL (1.0-4.8) Monocytes # (Auto) 0.2 x10^3/uL (0.0-1.1) Eosinophils # (Auto) 0.2 x10^3/uL (0.0-0.7) Basophils # (Auto) 0.0 x10^3/uL (0.0-0.2) Sodium Level 136 mmol/L (136-145) Potassium Level 3.6 mmol/L (3.5-5.1) Chloride Level 99 mmol/L (98-107) Carbon Dioxide Level 23 mmol/L (21-32) Anion Gap 14 (6-14) Blood Urea Nitrogen 81 mg/dL (8-26) Creatinine 4.5 mg/dL (0.7-1.3) Estimated GFR (Cockcroft-Gault) 13.2 BUN/Creatinine Ratio 18 (6-20) Glucose Level 89 mg/dL (70-99) Calcium Level 7.5 mg/dL (8.5-10.1) Total Bilirubin 2.3 mg/dL (0.2-1.0) Aspartate Amino Transf (AST/SGOT) 66 U/L (15-37) Alanine Aminotransferase (ALT/SGPT) 21 U/L (16-63) Alkaline Phosphatase 58 U/L (46-116) Total Protein 5.3 g/dL (6.4-8.2) Albumin 2.5 g/dL (3.4-5.0) Albumin/Globulin Ratio 0.9 (1.0-1.7) O2 Saturation 97 % (92-99) Arterial Blood pH 7.37 (7.35-7.45) Arterial Blood pCO2 at Patient Temp 38 mmHg (35-46) Arterial Blood pO2 at Patient Temp 94 mmHg (65-108) Arterial Blood HCO3 22 mmol/L (21-28) Arterial Blood Base Excess -3 mmol/L (-3-3) FiO2 40% Test 08/02/19 07:25 08/02/19 15:00 08/02/19 21:15 08/02/19 21:30 Heparin Anti-Xa Act, Unfractionated 0.25 IU/mL (0.30-0.70) 0.22 IU/mL (0.30-0.70) 0.21 IU/mL (0.30-0.70) Sodium Level 135 mmol/L (136-145) Potassium Level 3.4 mmol/L (3.5-5.1) Chloride Level 98 mmol/L (98-107) Carbon Dioxide Level 23 mmol/L (21-32) Anion Gap 14 (6-14) Blood Urea Nitrogen 94 mg/dL (8-26) Creatinine 4.9 mg/dL (0.7-1.3) Estimated GFR (Cockcroft-Gault) 11.9 Glucose Level 86 mg/dL (70-99) Calcium Level 7.9 mg/dL (8.5-10.1) Magnesium Level 2.5 mg/dL (1.8-2.4) Test 08/03/19 03:00 08/03/19 05:15 08/03/19 08:10 08/03/19 08:38 Heparin Anti-Xa Act, Unfractionated 0.45 IU/mL (0.30-0.70) 0.40 IU/mL (0.30-0.70) White Blood Count 13.3 x10^3/uL (4.0-11.0) Red Blood Count 3.54 x10^6/uL (4.30-5.70) Hemoglobin 11.2 g/dL (13.0-17.5) Hematocrit 33.6 % (39.0-53.0) Mean Corpuscular Volume 95 fL (79-100) Mean Corpuscular Hemoglobin 32 pg (25-35) Mean Corpuscular Hemoglobin Concent 33 g/dL (31-37) Red Cell Distribution Width 13.8 % (11.5-14.5) Platelet Count 234 x10^3/uL (140-400) Neutrophils (%) (Auto) 87 % (31-73) Lymphocytes (%) (Auto) 7 % (24-48) Monocytes (%) (Auto) 3 % (0-9) Eosinophils (%) (Auto) 3 % (0-3) Basophils (%) (Auto) 0 % (0-3) Neutrophils # (Auto) 11.6 x10^3/uL (1.8-7.7) Lymphocytes # (Auto) 0.9 x10^3/uL (1.0-4.8) Monocytes # (Auto) 0.4 x10^3/uL (0.0-1.1) Eosinophils # (Auto) 0.3 x10^3/uL (0.0-0.7) Basophils # (Auto) 0.0 x10^3/uL (0.0-0.2) Sodium Level 136 mmol/L (136-145) Potassium Level 3.5 mmol/L (3.5-5.1) Chloride Level 99 mmol/L (98-107) Carbon Dioxide Level 23 mmol/L (21-32) Anion Gap 14 (6-14) Blood Urea Nitrogen 104 mg/dL (8-26) Creatinine 5.0 mg/dL (0.7-1.3) Estimated GFR (Cockcroft-Gault) 11.7 Glucose Level 81 mg/dL (70-99) Calcium Level 8.0 mg/dL (8.5-10.1) Magnesium Level 2.8 mg/dL (1.8-2.4) O2 Saturation 97 % (92-99) Arterial Blood pH 7.36 (7.35-7.45) Arterial Blood pCO2 at Patient Temp 39 mmHg (35-46) Arterial Blood pO2 at Patient Temp 97 mmHg (65-108) Arterial Blood HCO3 21 mmol/L (21-28) Arterial Blood Base Excess -4 mmol/L (-3-3) FiO2 40 Laboratory Tests Test 08/02/19 15:00 08/02/19 21:15 08/02/19 21:30 08/03/19 03:00 Heparin Anti-Xa Act, Unfractionated 0.22 IU/mL (0.30-0.70) 0.21 IU/mL (0.30-0.70) 0.45 IU/mL (0.30-0.70) Sodium Level 135 mmol/L (136-145) Potassium Level 3.4 mmol/L (3.5-5.1) Chloride Level 98 mmol/L (98-107) Carbon Dioxide Level 23 mmol/L (21-32) Anion Gap 14 (6-14) Blood Urea Nitrogen 94 mg/dL (8-26) Creatinine 4.9 mg/dL (0.7-1.3) Estimated GFR (Cockcroft-Gault) 11.9 Glucose Level 86 mg/dL (70-99) Calcium Level 7.9 mg/dL (8.5-10.1) Magnesium Level 2.5 mg/dL (1.8-2.4) Test 08/03/19 05:15 08/03/19 08:10 08/03/19 08:38 White Blood Count 13.3 x10^3/uL (4.0-11.0) Red Blood Count 3.54 x10^6/uL (4.30-5.70) Hemoglobin 11.2 g/dL (13.0-17.5) Hematocrit 33.6 % (39.0-53.0) Mean Corpuscular Volume 95 fL (79-100) Mean Corpuscular Hemoglobin 32 pg (25-35) Mean Corpuscular Hemoglobin Concent 33 g/dL (31-37) Red Cell Distribution Width 13.8 % (11.5-14.5) Platelet Count 234 x10^3/uL (140-400) Neutrophils (%) (Auto) 87 % (31-73) Lymphocytes (%) (Auto) 7 % (24-48) Monocytes (%) (Auto) 3 % (0-9) Eosinophils (%) (Auto) 3 % (0-3) Basophils (%) (Auto) 0 % (0-3) Neutrophils # (Auto) 11.6 x10^3/uL (1.8-7.7) Lymphocytes # (Auto) 0.9 x10^3/uL (1.0-4.8) Monocytes # (Auto) 0.4 x10^3/uL (0.0-1.1) Eosinophils # (Auto) 0.3 x10^3/uL (0.0-0.7) Basophils # (Auto) 0.0 x10^3/uL (0.0-0.2) Sodium Level 136 mmol/L (136-145) Potassium Level 3.5 mmol/L (3.5-5.1) Chloride Level 99 mmol/L (98-107) Carbon Dioxide Level 23 mmol/L (21-32) Anion Gap 14 (6-14) Blood Urea Nitrogen 104 mg/dL (8-26) Creatinine 5.0 mg/dL (0.7-1.3) Estimated GFR (Cockcroft-Gault) 11.7 Glucose Level 81 mg/dL (70-99) Calcium Level 8.0 mg/dL (8.5-10.1) Magnesium Level 2.8 mg/dL (1.8-2.4) O2 Saturation 97 % (92-99) Arterial Blood pH 7.36 (7.35-7.45) Arterial Blood pCO2 at Patient Temp 39 mmHg (35-46) Arterial Blood pO2 at Patient Temp 97 mmHg (65-108) Arterial Blood HCO3 21 mmol/L (21-28) Arterial Blood Base Excess -4 mmol/L (-3-3) FiO2 40 Heparin Anti-Xa Act, Unfractionated 0.40 IU/mL (0.30-0.70) Medications Active Scripts Medications Dose Route/Sig Max Daily Dose Days Date Category Proair Hfa (Albuterol Sulfate) 8.5 Gm Hfa.aer.ad 2 Puff IH PRN Q4-6HRS PRN 21 07/25/19 Rx Tessalon Perle (Benzonatate) 100 Mg Capsule 1 Cap PO TID 07/25/19 Rx Prednisone 50 Mg Tablet 1 Tab PO DAILY 07/25/19 Rx Cyclobenzaprine Hcl 5 Mg Tablet 1 Tab PO TID 03/21/17 Rx Ibuprofen 800 Mg Tablet 800 Mg PO Q6-8HRS 03/21/17 Rx Zofran Odt (Ondansetron) 4 Mg Tab.rapdis 1 Tab SL Q8HRS 01/07/17 Rx Ultram (Tramadol Hcl) 50 Mg Tablet 1 Tab PO Q6HRS 01/29/16 Rx Impression . IMPRESSION: 1. Acute hypoxemic respiratory failure. MULTIFACTORIAL 2. Sepsis. 3. Pneumonia, suspect gram-negative, possibly gram-positive. 4. Influenza A. 5. New onset atrial fibrillation. 6. Peripheral vascular disease with possible peripheral emboli. 7. Metabolic acidosis. 8. Acute renal failure. 9. Severe protein malnutrition, present upon admission. 10. Elevated total bilirubin. ID3/1 Assessment Septic shock procalcitonin 25.26 GPC in chains/pairs bacteremia, (4 of 4 bottles), 07/30 ? source. -Repeat BC neg to date. TTE (07/31) no evidence veg Influenza A, respiratory tract infection. Acute hypoxic respiratory failure with pneumonia, status post intubation. 07/31. GPC & GPR on gram stain. culture in process CXR Impression: 1. Bilateral interstitial and alveolar opacities, increased within the left mid and lower lung. 2. Small bilateral pleural effusions, unchanged. DR DE ANDA NOTE IMPRESSION: 1. Ischemic skin changes to his right and left foot, worse in the right foot compared to the left with early gangrene despite adequate circulation. 2. Respiratory failure. 3. Confusion at presentation and he has been homeless with no medical care. PLAN: The patient has ischemic type changes in his right and left foot. The right foot is significantly worse than the left. There is mottling, demarcation and signs of early gangrene in his right foot. His left foot has mottling, but no sandy gangrene at this point. He does have good circulation in his legs with dopplerable pulses in both of his feet and duplex scan of the right leg shows patency of his vessels. No arterial intervention is needed at this point. I do recommend continuing his heparin drip and warming his feet and lower legs. He may end up requiring amputation of his feet in the future, but no urgent surgical intervention is needed at this point. We will continue to monitor. Plan . NO BETTER TODAY WILL CONTINUE SUPPORT HD ANTI BNX PER ID CXR REVIEWED NO SURGERY PLANNED FOR NOW IV HEPARIN ANTI BX ABG NOTED AISHA ARIZA MD Aug 03, 2019 13:22
[2019-08-03] MEDS ORDERED: IV NORMAL SALINE 1000ML BAG 1,000 ML IV PRN ×2 (13:31)
[2019-08-03] MEDS ORDERED: DIALYSIS PATIENT. MC PRN ×2 (13:45)
--- NOTE | 2019-08-03 14:24 | PDOC ---
Provider Note Provider Note Intubated on the vent bilateral lower extremities warm and pink right foot with large blister on the dorsal foot which I removed, underlying tissue is pink, the right 4th toe has black gangrene and an open wound on the lateral toe deep to the bone left foot is pink with no tissue breakdown Good circulation in the legs/feet Recommend right 4th toe amputation for the gangrene, continue wound care to the open wounds. Will plan toe amputation tomorrow if family agreeable. CYNTHIA DE ANDA MD Aug 03, 2019 14:24
--- NOTE | 2019-08-03 15:04 | RAD ---
Procedure: Ultrasound-guided placement of right internal jugular temporary dialysis catheter08/03/2019 12:59 PM Clinical Indication: Temp HD Cath Placement, Dialysis Discussion: The risks and benefits of the procedure were discussed the patient and/or their fraud representative. Informed consent was obtained. A timeout procedure was performed. All elements of maximal sterile barrier technique including the use of a cap, mask, sterile gown, sterile gloves, large sterile sheet, appropriate hand hygiene, and 2% chlorhexidine for cutaneous antisepsis (or acceptable alternative antiseptic per current guidelines) were followed for this procedure. The patient was prepped and draped in the usual sterile fashion. Ultrasound interrogation of the right neck revealed patency and compressibility of the right internal jugular vein. A 21-gauge micropuncture was then used to gain access to this vein under ultrasound guidance. A hard copy ultrasound image was recorded. A guidewire was advanced centrally. 5 Frisian sheath was placed. Over a wire following dilatation, a dual-lumen temporary dialysis catheter was advanced centrally. Catheter was found to flush and aspirate normally. Follow-up chest radiograph demonstrates tip at the cavoatrial junction. Catheter secured in place and a sterile dressing was applied. No immediate complications were identified. Impression: Successful ultrasound-guided placement of right internal jugular temporary dialysis central venous catheter
[2019-08-03] MEDS: ANTI-COAG MONITOR BY PHARMACY. MC PRN (16:04)
--- NOTE | 2019-08-03 16:40 | RAD ---
AP portable chest radiograph 08/03/2019 Clinical History: Postcentral line placement. An AP supine portable digital radiograph of the chest was obtained. Comparison study is dated 08/03/2019. The ET tube, NG tube and right internal jugular central venous catheter are unchanged in position. A large bore right internal jugular dual-lumen central venous catheter has been placed. The tip of this catheter extends to overlie the right atrium of the heart. The cardiac silhouette is mildly enlarged. The thoracic aorta is tortuous. Atherosclerotic calcification of the thoracic aorta is seen. There are small bilateral pleural effusions. No pneumothorax is noted. Perihilar infiltrates are seen which likely reflect pulmonary edema. These have not significantly changed. The osseous structures are unchanged. Impression: Interval placement of a right internal jugular central venous catheter as discussed above. The tip of this catheter extends to overlie the right atrium of the heart. No pneumothorax is seen. Electronically signed by: Mikael Nuñez MD (08/03/2019 4:37 PM) [id number]
--- NOTE | 2019-08-03 17:07 | PDOC ---
PROGRESS NOTES Subjective Subjective Patient seen and examined Objective Objective Vital Signs Date Time Temp Pulse Resp B/P (MAP) Pulse Ox O2 Delivery O2 Flow Rate FiO2 08/03/19 16:08 97 Ventilator 08/03/19 16:00 98.9 80 16 134/70 (91) 98.9 08/03/19 14:46 80.0 Intake and Output 08/03/19 07:00 Intake Total 1938 ml Output Total 600 ml Balance 1338 ml Intake IV Total 1788 ml Tube Feeding 150 ml Output Urine Total 600 ml Physical Exam Abdomen: Normal bowel sounds Heart: Other (irregular rhythm) General: Other (intubated) Lungs: Other (decreased breath sounds) Assessment Assessment Problems Medical Problems: (1) Altered mental status Status: Acute 1. Acute respiratory hypercapnic respiratory failure with Pneumonia, flu and possible COPD s/p intubation. Slow progress. Continue vent management per pulmonary team. 2. Flu A 3. Sepsis with UTI/pneumonia: Continue antibiotics 4. Pneumonia 5. SONIA: Creatinine to 5.0. Followed by the renal service. 6. AFIB RVR: chronic per report. Heart rate is under better control. Will continue present treatment. 7. Mildly elevated troponin: peaked at 0.11. Demand mediated with culprits above. 2-D echo showed normal LV systolic function. 8. Metabolic/hypoxic encephalopathy 9. Noncompliance: limited financial constraints. Does not take any routine meds. 10. Severe PAD: ischemia to right foot with grayish 4th toe possibly cardioemboli. Vascular surgery following 11. Noncompliance: no noted home medications 12. Homelessness 13. Tobaccoism Comment Review of Relevant I have reviewed the following items hya (where applicable) has been applied. Labs Laboratory Tests Test 08/01/19 22:20 08/02/19 05:00 08/02/19 07:20 08/02/19 07:25 Heparin Anti-Xa Act, Unfractionated 0.26 IU/mL (0.30-0.70) 0.25 IU/mL (0.30-0.70) White Blood Count 15.7 x10^3/uL (4.0-11.0) Red Blood Count 3.49 x10^6/uL (4.30-5.70) Hemoglobin 11.2 g/dL (13.0-17.5) Hematocrit 33.4 % (39.0-53.0) Mean Corpuscular Volume 96 fL (79-100) Mean Corpuscular Hemoglobin 32 pg (25-35) Mean Corpuscular Hemoglobin Concent 34 g/dL (31-37) Red Cell Distribution Width 14.0 % (11.5-14.5) Platelet Count 251 x10^3/uL (140-400) Neutrophils (%) (Auto) 89 % (31-73) Lymphocytes (%) (Auto) 8 % (24-48) Monocytes (%) (Auto) 2 % (0-9) Eosinophils (%) (Auto) 2 % (0-3) Basophils (%) (Auto) 0 % (0-3) Neutrophils # (Auto) 13.9 x10^3/uL (1.8-7.7) Lymphocytes # (Auto) 1.2 x10^3/uL (1.0-4.8) Monocytes # (Auto) 0.2 x10^3/uL (0.0-1.1) Eosinophils # (Auto) 0.2 x10^3/uL (0.0-0.7) Basophils # (Auto) 0.0 x10^3/uL (0.0-0.2) Sodium Level 136 mmol/L (136-145) Potassium Level 3.6 mmol/L (3.5-5.1) Chloride Level 99 mmol/L (98-107) Carbon Dioxide Level 23 mmol/L (21-32) Anion Gap 14 (6-14) Blood Urea Nitrogen 81 mg/dL (8-26) Creatinine 4.5 mg/dL (0.7-1.3) Estimated GFR (Cockcroft-Gault) 13.2 BUN/Creatinine Ratio 18 (6-20) Glucose Level 89 mg/dL (70-99) Calcium Level 7.5 mg/dL (8.5-10.1) Total Bilirubin 2.3 mg/dL (0.2-1.0) Aspartate Amino Transf (AST/SGOT) 66 U/L (15-37) Alanine Aminotransferase (ALT/SGPT) 21 U/L (16-63) Alkaline Phosphatase 58 U/L (46-116) Total Protein 5.3 g/dL (6.4-8.2) Albumin 2.5 g/dL (3.4-5.0) Albumin/Globulin Ratio 0.9 (1.0-1.7) O2 Saturation 97 % (92-99) Arterial Blood pH 7.37 (7.35-7.45) Arterial Blood pCO2 at Patient Temp 38 mmHg (35-46) Arterial Blood pO2 at Patient Temp 94 mmHg (65-108) Arterial Blood HCO3 22 mmol/L (21-28) Arterial Blood Base Excess -3 mmol/L (-3-3) FiO2 40% Test 08/02/19 15:00 08/02/19 21:15 08/02/19 21:30 08/03/19 03:00 Heparin Anti-Xa Act, Unfractionated 0.22 IU/mL (0.30-0.70) 0.21 IU/mL (0.30-0.70) 0.45 IU/mL (0.30-0.70) Sodium Level 135 mmol/L (136-145) Potassium Level 3.4 mmol/L (3.5-5.1) Chloride Level 98 mmol/L (98-107) Carbon Dioxide Level 23 mmol/L (21-32) Anion Gap 14 (6-14) Blood Urea Nitrogen 94 mg/dL (8-26) Creatinine 4.9 mg/dL (0.7-1.3) Estimated GFR (Cockcroft-Gault) 11.9 Glucose Level 86 mg/dL (70-99) Calcium Level 7.9 mg/dL (8.5-10.1) Magnesium Level 2.5 mg/dL (1.8-2.4) Test 08/03/19 05:15 08/03/19 08:10 08/03/19 08:38 08/03/19 16:21 White Blood Count 13.3 x10^3/uL (4.0-11.0) Red Blood Count 3.54 x10^6/uL (4.30-5.70) Hemoglobin 11.2 g/dL (13.0-17.5) Hematocrit 33.6 % (39.0-53.0) Mean Corpuscular Volume 95 fL (79-100) Mean Corpuscular Hemoglobin 32 pg (25-35) Mean Corpuscular Hemoglobin Concent 33 g/dL (31-37) Red Cell Distribution Width 13.8 % (11.5-14.5) Platelet Count 234 x10^3/uL (140-400) Neutrophils (%) (Auto) 87 % (31-73) Lymphocytes (%) (Auto) 7 % (24-48) Monocytes (%) (Auto) 3 % (0-9) Eosinophils (%) (Auto) 3 % (0-3) Basophils (%) (Auto) 0 % (0-3) Neutrophils # (Auto) 11.6 x10^3/uL (1.8-7.7) Lymphocytes # (Auto) 0.9 x10^3/uL (1.0-4.8) Monocytes # (Auto) 0.4 x10^3/uL (0.0-1.1) Eosinophils # (Auto) 0.3 x10^3/uL (0.0-0.7) Basophils # (Auto) 0.0 x10^3/uL (0.0-0.2) Sodium Level 136 mmol/L (136-145) Potassium Level 3.5 mmol/L (3.5-5.1) Chloride Level 99 mmol/L (98-107) Carbon Dioxide Level 23 mmol/L (21-32) Anion Gap 14 (6-14) Blood Urea Nitrogen 104 mg/dL (8-26) Creatinine 5.0 mg/dL (0.7-1.3) Estimated GFR (Cockcroft-Gault) 11.7 Glucose Level 81 mg/dL (70-99) Calcium Level 8.0 mg/dL (8.5-10.1) Magnesium Level 2.8 mg/dL (1.8-2.4) O2 Saturation 97 % (92-99) Arterial Blood pH 7.36 (7.35-7.45) Arterial Blood pCO2 at Patient Temp 39 mmHg (35-46) Arterial Blood pO2 at Patient Temp 97 mmHg (65-108) Arterial Blood HCO3 21 mmol/L (21-28) Arterial Blood Base Excess -4 mmol/L (-3-3) FiO2 40 Heparin Anti-Xa Act, Unfractionated 0.40 IU/mL (0.30-0.70) 0.40 IU/mL (0.30-0.70) Laboratory Tests Test 08/02/19 21:15 08/02/19 21:30 08/03/19 03:00 08/03/19 05:15 Sodium Level 135 mmol/L (136-145) 136 mmol/L (136-145) Potassium Level 3.4 mmol/L (3.5-5.1) 3.5 mmol/L (3.5-5.1) Chloride Level 98 mmol/L (98-107) 99 mmol/L (98-107) Carbon Dioxide Level 23 mmol/L (21-32) 23 mmol/L (21-32) Anion Gap 14 (6-14) 14 (6-14) Blood Urea Nitrogen 94 mg/dL (8-26) 104 mg/dL (8-26) Creatinine 4.9 mg/dL (0.7-1.3) 5.0 mg/dL (0.7-1.3) Estimated GFR (Cockcroft-Gault) 11.9 11.7 Glucose Level 86 mg/dL (70-99) 81 mg/dL (70-99) Calcium Level 7.9 mg/dL (8.5-10.1) 8.0 mg/dL (8.5-10.1) Magnesium Level 2.5 mg/dL (1.8-2.4) 2.8 mg/dL (1.8-2.4) Heparin Anti-Xa Act, Unfractionated 0.21 IU/mL (0.30-0.70) 0.45 IU/mL (0.30-0.70) White Blood Count 13.3 x10^3/uL (4.0-11.0) Red Blood Count 3.54 x10^6/uL (4.30-5.70) Hemoglobin 11.2 g/dL (13.0-17.5) Hematocrit 33.6 % (39.0-53.0) Mean Corpuscular Volume 95 fL (79-100) Mean Corpuscular Hemoglobin 32 pg (25-35) Mean Corpuscular Hemoglobin Concent 33 g/dL (31-37) Red Cell Distribution Width 13.8 % (11.5-14.5) Platelet Count 234 x10^3/uL (140-400) Neutrophils (%) (Auto) 87 % (31-73) Lymphocytes (%) (Auto) 7 % (24-48) Monocytes (%) (Auto) 3 % (0-9) Eosinophils (%) (Auto) 3 % (0-3) Basophils (%) (Auto) 0 % (0-3) Neutrophils # (Auto) 11.6 x10^3/uL (1.8-7.7) Lymphocytes # (Auto) 0.9 x10^3/uL (1.0-4.8) Monocytes # (Auto) 0.4 x10^3/uL (0.0-1.1) Eosinophils # (Auto) 0.3 x10^3/uL (0.0-0.7) Basophils # (Auto) 0.0 x10^3/uL (0.0-0.2) Test 08/03/19 08:10 08/03/19 08:38 08/03/19 16:21 O2 Saturation 97 % (92-99) Arterial Blood pH 7.36 (7.35-7.45) Arterial Blood pCO2 at Patient Temp 39 mmHg (35-46) Arterial Blood pO2 at Patient Temp 97 mmHg (65-108) Arterial Blood HCO3 21 mmol/L (21-28) Arterial Blood Base Excess -4 mmol/L (-3-3) FiO2 40 Heparin Anti-Xa Act, Unfractionated 0.40 IU/mL (0.30-0.70) 0.40 IU/mL (0.30-0.70) Microbiology 08/02/19 Blood Culture - Preliminary, Resulted NO GROWTH AFTER 1 DAY 07/31/19 - Final, Resulted 07/31/19 - Final, Resulted 07/31/19 - Final, Resulted 07/31/19 - Preliminary, Resulted 07/31/19 - Preliminary, Resulted 07/31/19 - Preliminary, Resulted 07/31/19 Gram Stain Evaluation - Final, Resulted 07/31/19 Sputum Culture, Resulted Pending 07/30/19 Urine Culture - Final, Complete 07/30/19 Urine Culture Result 1 (SONIA) - Final, Complete Medications Current Medications Albuterol/ Ipratropium (Duoneb) 3 ml 1X ONCE NEB Last administered on 07/30/19at 18:00; Start 07/30/19 at 18:00; Stop 07/30/19 at 18:01; Status DC Albuterol Sulfate (Ventolin Neb Soln) 10 mg 1X ONCE CONT NEB Last administered on 07/30/19at 18:00; Start 07/30/19 at 18:00; Stop 07/30/19 at 18:01; Status DC Morphine Sulfate (Morphine Sulfate) 2 mg PRN Q15MIN PRN IV/SQ PAIN GREATER THAN 3/10 Last administered on 07/30/19at 18:08; Start 07/30/19 at 18:00; Stop 07/31/19 at 00:10; Status DC Diltiazem HCl (Cardizem Iv Push) 10 mg 1X ONCE IVP Last administered on 07/30/19at 18:01; Start 07/30/19 at 18:00; Stop 07/30/19 at 18:01; Status DC Diltiazem HCl 125 mg/Sodium Chloride 125 ml @ 5 mls/hr 1X ONCE IV Last administered on 07/30/19at 18:36; Start 07/30/19 at 18:00; Stop 07/31/19 at 18:59; Status DC Lorazepam (Ativan Inj) 2 mg 1X ONCE IVP Last administered on 07/30/19at 18:35; Start 07/30/19 at 18:15; Stop 07/30/19 at 18:16; Status DC Lorazepam (Ativan Inj) 2 mg STK-MED ONCE .ROUTE ; Start 07/30/19 at 18:14; Stop 07/30/19 at 18:14; Status DC Digoxin (Lanoxin) 250 mcg 1X ONCE IV Last administered on 07/30/19at 18:53; Start 07/30/19 at 18:45; Stop 07/30/19 at 18:46; Status DC Amiodarone HCl 150 mg/Dextrose 103 ml @ 618 mls/hr 1X ONCE IV Last administered on 07/30/19at 20:07; Start 07/30/19 at 18:45; Stop 07/30/19 at 18:54; Status DC Amiodarone HCl 450 mg/Dextrose 259 ml @ 0 mls/hr CONT PRN IV SEE I/O RECORD Last administered on 07/30/19at 20:21; Start 07/30/19 at 18:45 Sodium Chloride 1,000 ml @ 1,000 mls/hr 1X ONCE IV Last administered on 07/30/19at 18:20; Start 07/30/19 at 18:45; Stop 07/31/19 at 02:15; Status DC Sodium Chloride 2,130 ml @ 2,130 mls/hr Q1H IV Last administered on 07/30/19at 19:02; Start 07/30/19 at 18:53; Stop 07/31/19 at 02:15; Status DC Piperacillin Sod/ Tazobactam Sod 4.5 gm/Sodium Chloride 100 ml @ 200 mls/hr 1X ONCE IV Last administered on 07/30/19at 19:06; Start 07/30/19 at 19:00; Stop 07/31/19 at 08:04; Status DC Vancomycin HCl (Vanco Per Pharmacy) 1 each 1X ONCE MC ; Start 07/30/19 at 19:00; Stop 07/31/19 at 08:04; Status DC Norepinephrine Bitartrate 8 mg/ Dextrose 258 ml @ 0 mls/hr CONT PRN IV PER PROTOCOL; Start 07/30/19 at 19:00; Stop 07/31/19 at 08:04; Status DC Potassium Chloride/Water 100 ml @ 100 mls/hr Q1H IV Last administered on 07/30/19at 21:31; Start 07/30/19 at 19:30; Stop 07/30/19 at 21:29; Status DC Vancomycin HCl 2 gm/Sodium Chloride 500 ml @ 250 mls/hr 1X ONCE IV Last administered on 07/30/19at 20:15; Start 07/30/19 at 19:15; Stop 07/30/19 at 21:14; Status DC Fentanyl Citrate (Fentanyl 2ml Vial) 25 mcg PRN Q1HR PRN IV SEE COMMENTS; Start 07/30/19 at 19:15; Stop 07/31/19 at 00:11; Status DC Fentanyl Citrate (Fentanyl 2ml Vial) 50 mcg PRN Q1HR PRN IV SEE COMMENTS; Start 07/30/19 at 19:15; Stop 07/31/19 at 00:11; Status DC Chlorhexidine Gluconate (Peridex) 15 ml BID MM Last administered on 08/03/19at 08:14; Start 07/30/19 at 21:00 Morphine Sulfate (Morphine Sulfate) 2 mg PRN Q1HR PRN IV SEE COMMENTS.; Start 07/30/19 at 19:15; Stop 07/31/19 at 00:11; Status DC Morphine Sulfate (Morphine Sulfate) 4 mg PRN Q1HR PRN IV SEE COMMENTS.; Start 07/30/19 at 19:15; Stop 07/31/19 at 00:11; Status DC Midazolam HCl 50 mg/Sodium Chloride 50 ml @ 0 mls/hr CONT PRN IV SEE PROTOCOL Last administered on 07/30/19at 20:40; Start 07/30/19 at 19:15; Stop 07/31/19 at 00:10; Status DC Acetaminophen (Tylenol Supp) 650 mg 1X ONCE [place] Last administered on 07/30/19at 20:49; Start 07/30/19 at 20:15; Stop 07/30/19 at 20:16; Status DC Ondansetron HCl (Zofran) 4 mg PRN Q8HRS PRN IV NAUSEA/VOMITING; Start 07/30/19 at 20:30; Stop 07/31/19 at 20:29; Status DC Acetaminophen (Tylenol) 650 mg PRN Q4HRS PRN PO FEVER Last administered on 07/31/19at 12:49; Start 07/30/19 at 20:30; Stop 07/31/19 at 20:29; Status DC Heparin Sodium/ Dextrose 250 ml @ 0 mls/hr CONT PRN IV PER PROTOCOL Last administered on 08/03/19at 15:12; Start 07/30/19 at 20:45 Heparin Sodium (Porcine) (Heparin Sodium) 2,200 unit PRN Q6HRS PRN IV FOR UFH LEVEL LESS THAN 0.2 Last administered on 08/01/19at 15:42; Start 07/30/19 at 20:45 Info (Anti-Coagulation Monitoring By Pharmacy) 1 each PRN DAILY PRN MC SEE COMMENTS Last administered on 08/03/19at 16:04; Start 07/30/19 at 21:00 Etomidate (Amidate) 20 mg STK-MED ONCE IV ; Start 07/30/19 at 21:15; Stop 07/30/19 at 21:16; Status DC Rocuronium [place] (Zemuron) 50 mg STK-MED ONCE .ROUTE ; Start 07/30/19 at 21:16; Stop 07/30/19 at 21:16; Status DC Diltiazem HCl 125 mg/Sodium Chloride 125 ml @ 5 mls/hr CONT PRN IV SEE I/O RECORD; Start 07/30/19 at 22:30; Stop 07/31/19 at 06:01; Status DC Sodium Bicarbonate 100 meq/Dextrose 1,100 ml @ 75 mls/hr 1X ONCE IV Last administered on 07/31/19at 01:54; Start 07/30/19 at 23:00; Stop 07/31/19 at 13:39; Status DC Etomidate (Amidate) 20 mg 1X ONCE IV Last administered on 07/30/19at 19:27; Start 07/30/19 at 23:45; Stop 07/30/19 at 23:46; Status DC Rocuronium [place] (Zemuron) 50 mg 1X ONCE IV Last administered on 07/30/19at 19:28; Start 07/30/19 at 23:45; Stop 07/30/19 at 23:46; Status DC Rocuronium [place] (Zemuron) 50 mg 1X ONCE IV Last administered on 07/30/19at 19:28; Start 07/30/19 at 23:45; Stop 07/30/19 at 23:46; Status DC Digoxin (Lanoxin) 250 mcg 1X ONCE IV Last administered on 07/31/19at 00:12; Start 07/31/19 at 00:30; Stop 07/31/19 at 00:31; Status DC Heparin Sodium/ Dextrose 250 ml @ 0 mls/hr CONT PRN IV SEE I/O RECORD; Start 07/31/19 at 00:00; Status UNV Fentanyl Citrate 30 ml @ 0 mls/hr CONT PRN IV SEE PROTOCOL Last administered on 08/03/19 14:46; Start 07/31/19 at 00:15 Midazolam HCl 50 mg/Sodium Chloride 50 ml @ 0 mls/hr CONT PRN IV SEE PROTOCOL Last administered on 08/03/19 14:44; Start 07/31/19 at 00:15 Diltiazem HCl 125 mg/Sodium Chloride 125 ml @ 5 mls/hr CONT PRN IV SEE I/O RECORD Last administered on 08/01/19 03:03; Start 07/31/19 at 01:00 Albuterol/ Ipratropium (Duoneb) 3 ml Q4HRS NEB Last administered on 08/03/19 16:08; Start 07/31/19 at 04:00 Sodium Chloride 1,000 ml @ 120 mls/hr Q8H20M IV Last administered on 07/31/19 02:30; Start 07/31/19 at 02:30; Stop 07/31/19 at 13:55; Status DC Vancomycin HCl (Vanco Per Pharmacy) 1 each PRN DAILY PRN MC SEE COMMENTS Last administered on 07/31/19at 03:30; Start 07/31/19 at 02:30; Stop 07/31/19 at 08:06; Status DC Vancomycin HCl 1.25 gm/Sodium Chloride 250 ml @ 167 mls/hr Q12H IV Last administered on 07/31/19at 07:57; Start 07/31/19 at 08:00; Stop 07/31/19 at 08:06; Status DC Vancomycin HCl (Vancomycin Trough Level) 1 each 1X ONCE MC ; Start 08/01/19 at 07:30; Stop 08/01/19 at 07:31; Status Cancel Micafungin Sodium 100 mg/Dextrose 100 ml @ 100 mls/hr Q24H IV Last administered on 08/03/19at 08:14; Start 07/31/19 at 08:00 Oseltamivir Phosphate (Tamiflu) 30 mg BID PO Last administered on 08/03/19at 08:14; Start 07/31/19 at 09:00; Stop 08/05/19 at 08:59 Linezolid/Dextrose 300 ml @ 300 mls/hr Q12HR IV Last administered on 08/03/19at 08:15; Start 07/31/19 at 09:00 Daptomycin 490 mg/ Sodium Chloride 50 ml @ 100 mls/hr Q24H IV Last administered on 07/31/19at 12:40; Start 07/31/19 at 10:00; Stop 08/01/19 at 09:01; Status DC Meropenem 1 gm/ Sodium Chloride 100 ml @ 200 mls/hr Q12HR IV Last administered on 08/03/19at 08:15; Start 07/31/19 at 09:00 Potassium Bicarbonate (Potassium Effervescent Tablet) 40 meq 1X ONCE PEG Last administered on 07/31/19at 10:54; Start 07/31/19 at 10:30; Stop 07/31/19 at 10:43; Status DC Famotidine (Pepcid Vial) 20 mg QHS IVP Last administered on 08/02/19at 21:11; Start 07/31/19 at 21:00 Albumin Human 100 ml @ 100 mls/hr TID IV Last administered on 08/02/19at 09:44; Start 07/31/19 at 14:30; Stop 08/02/19 at 09:59; Status DC Sodium Chloride 2,340 ml @ 2,340 mls/hr Q1H IV ; Start 07/31/19 at 14:48; Status UNV Sodium Chloride 500 ml @ 1,000 mls/hr PRN Q30MIN PRN IV SEE COMMENTS; Start 07/31/19 at 15:00; Status UNV Dobutamine HCl/ Dextrose 250 ml @ 0 mls/hr CONT PRN IV SEE I/O RECORD; Start 07/31/19 at 15:00; Status UNV Ondansetron HCl (Zofran) 4 mg PRN Q6HRS PRN IV NAUSEA/VOMITING; Start 07/31/19 at 15:00 Prochlorperazine (Compazine) 25 mg PRN Q12HR PRN [place] NAUSEA/VOMITING; Start 07/31/19 at 15:00 Famotidine (Pepcid Vial) 20 mg BID IVP ; Start 07/31/19 at 21:00; Status UNV Sodium Chloride (Normal Saline Flush) 3 ml QSHIFT PRN IV AFTER MEDS AND BLOOD DRAWS; Start 07/31/19 at 15:00 Bisacodyl (Dulcolax Supp) 10 mg PRN DAILY PRN [place] CONSTIPATION; Start 07/31/19 at 15:00 Thiamine HCl 100 mg/Dextrose 51 ml @ 102 mls/hr DAILY IV Last administered on 08/03/19at 08:14; Start 07/31/19 at 17:00 Vitamin A/Vitamin D (Vitamin A & D Ointment) 1 [place] PRN Q1HR PRN TP SKIN PROTECTION Last administered on 08/03/19at 08:14; Start 07/31/19 at 16:45 Daptomycin 490 mg/ Sodium Chloride 50 ml @ 100 mls/hr Q48H IV Last administered on 08/03/19at 11:19; Start 08/01/19 at 10:00 Furosemide (Lasix) 40 mg 1X ONCE IVP Last administered on 08/01/19at 22:14; Start 08/01/19 at 22:30; Stop 08/01/19 at 22:31; Status DC Potassium Bicarbonate (Potassium Effervescent Tablet) 20 meq 1X ONCE PEG Last administered on 08/01/19at 22:14; Start 08/01/19 at 22:30; Stop 08/01/19 at 22:31; Status DC Lidocaine HCl (Buffered Lidocaine 1%) 3 ml STK-MED ONCE .ROUTE ; Start 08/03/19 at 09:05; Stop 08/03/19 at 09:05; Status DC Lidocaine HCl (Buffered Lidocaine 1%) 3 ml 1X ONCE INJ Last administered on 08/03/19at 09:28; Start 08/03/19 at 09:30; Stop 08/03/19 at 09:31; Status DC Multivitamins/ Minerals Therapeutic (Centrum Multivit-Mineral Liq) 5 ml DAILY PEG ; Start 08/03/19 at 12:00 Sodium Chloride 1,000 ml @ 1,000 mls/hr Q1H PRN IV hypotension; Start 08/03/19 at 13:31; Stop 08/03/19 at 19:30 Sodium Chloride 1,000 ml @ 400 mls/hr Q2H30M PRN IV PATENCY; Start 08/03/19 at 13:31; Stop 08/04/19 at 01:30 Info (PHARMACY MONITORING -- do not chart) 1 each PRN DAILY PRN MC SEE COMMENTS; Start 08/03/19 at 13:45; Status UNV Info (PHARMACY MONITORING -- do not chart) 1 each PRN DAILY PRN MC SEE COMMENTS; Start 08/03/19 at 13:45 Ondansetron HCl (Zofran) 4 mg PRN Q6HRS PRN IV NAUSEA/VOMITING; Start 08/04/19 at 07:00; Stop 08/05/19 at 06:59 Fentanyl Citrate (Fentanyl 2ml Vial) 25 mcg PRN Q5MIN PRN IV MILD PAIN 1-3; Start 08/04/19 at 07:00; Stop 08/05/19 at 06:59 Fentanyl Citrate (Fentanyl 2ml Vial) 50 mcg PRN Q5MIN PRN IV MODERATE TO SEVERE PAIN; Start 08/04/19 at 07:00; Stop 08/05/19 at 06:59 Ringer's Solution 1,000 ml @ 30 mls/hr Q24H IV ; Start 08/04/19 at 07:00; Stop 08/04/19 at 18:59 Prochlorperazine Edisylate (Compazine) 5 mg PACU PRN PRN IV NAUSEA, MRX1; Start 08/04/19 at 07:00; Stop 08/05/19 at 06:59 Active Scripts Active Proair Hfa (Albuterol Sulfate) 8.5 Gm Hfa.aer.ad 2 Puff IH PRN Q4-6HRS PRN 21 Days Tessalon Perle (Benzonatate) 100 Mg Capsule 1 Cap PO TID Prednisone 50 Mg Tablet 1 Tab PO DAILY Cyclobenzaprine Hcl 5 Mg Tablet 1 Tab PO TID Ibuprofen 800 Mg Tablet 800 Mg PO Q6-8HRS Zofran Odt (Ondansetron) 4 Mg Tab.rapdis 1 Tab SL Q8HRS Ultram (Tramadol Hcl) 50 Mg Tablet 1 Tab PO Q6HRS Vitals/I & O Vital Sign - Last 24 Hours 08/02/19 08/02/19 08/02/19 08/02/19 18:00 18:02 19:00 19:44 Pulse 89 89 Resp 14 14 B/P (MAP) 135/52 (79) 132/66 (88) Pulse Ox 98 97 94 96 O2 Delivery Ventilator Ventilator Ventilator Ventilator 08/02/19 08/02/19 08/02/19 08/02/19 20:00 20:00 21:00 21:00 Temp 98.9 98.9 Pulse 88 86 Resp 16 18 B/P (MAP) 127/68 (87) 128/64 (85) Pulse Ox 98 96 97 O2 Delivery Mechanical Ventilator Ventilator Ventilator Ventilator 08/02/19 08/02/19 08/02/19 08/02/19 22:00 23:00 23:00 23:59 Pulse 84 83 Resp 16 16 B/P (MAP) 132/66 (88) 125/67 (86) Pulse Ox 97 97 97 O2 Delivery Ventilator Ventilator Ventilator Mechanical Ventilator 08/03/19 08/03/19 08/03/19 08/03/19 00:00 01:00 02:00 02:37 Temp 98.8 98.8 Pulse 84 84 79 Resp 16 19 17 B/P (MAP) 118/61 (80) 127/63 (84) 144/73 (96) Pulse Ox 97 97 98 97 O2 Delivery Ventilator Ventilator Ventilator Ventilator 08/03/19 08/03/19 08/03/19 08/03/19 03:00 04:00 04:00 05:00 Temp 98.5 98.5 Pulse 81 87 81 Resp 17 16 17 B/P (MAP) 134/68 (90) 134/66 (88) 121/63 (82) Pulse Ox 98 98 98 O2 Delivery Ventilator Ventilator Mechanical Ventilator Ventilator 08/03/19 08/03/19 08/03/19 08/03/19 05:35 06:00 07:00 08:00 Pulse 80 80 Resp 17 17 B/P (MAP) 120/63 (82) 109/61 (77) Pulse Ox 99 99 99 O2 Delivery Ventilator Ventilator Ventilator Mechanical Ventilator 08/03/19 08/03/19 08/03/19 08/03/19 08:00 08:10 09:00 10:00 Temp 98.6 98.6 Pulse 78 78 78 Resp 16 16 16 B/P (MAP) 119/64 (82) 134/69 (90) 123/61 (81) Pulse Ox 98 98 99 99 O2 Delivery Ventilator Ventilator Ventilator Ventilator 08/03/19 08/03/19 08/03/19 08/03/19 10:10 11:00 12:00 12:00 Temp 98.4 98.4 Pulse 80 80 Resp 16 16 B/P (MAP) 128/72 (90) 133/69 (90) Pulse Ox 98 99 98 O2 Delivery Ventilator Ventilator Mechanical Ventilator Ventilator 08/03/19 08/03/19 08/03/19 08/03/19 12:14 13:00 14:00 14:46 Pulse 80 82 Resp 16 16 B/P (MAP) 140/71 (94) 134/74 (94) Pulse Ox 97 99 99 97 O2 Delivery Ventilator Ventilator Ventilator O2 Flow Rate 80.0 08/03/19 08/03/19 08/03/19 15:00 16:00 16:08 Temp 98.9 98.9 Pulse 80 80 Resp 16 16 B/P (MAP) 142/78 (99) 134/70 (91) Pulse Ox 99 98 97 O2 Delivery Ventilator Ventilator Ventilator Intake and Output 08/02/19 08/02/19 08/03/19 15:00 23:00 07:00 Intake Total 551 ml 816 ml 571 ml Output Total 200 ml 400 ml Balance 551 ml 616 ml 171 ml Nutrition Consultation Dietary Evaluation: Recommendations by RD: Dietary education by RD, Increase Calorie Intake, Protein supplementation Comments: REC advance VitalHP 10 ml q8 hrs as tolerated to goal rate 65 ml/hr w/100 ml water flushes q4 hrs or flushes per MD; recommend switching formula back to VitalAF once formula becomes available to avoid excessive protein intake REC Javi BID (once in AM and once in PM) for wound healing, dissolve each packet in ~4 oz water to dissolve and flush tube w/~30 ml water before and after each packet REC MVI for wound healing - discussed RN (Claudia) Expected Outcomes/Goals: Initiation of TFs within 24 - 48 hrs of intubation - met, new goal estanblished New goal 08/02: TF infusion to meet >75% est needs Malnutrition Findings: Food and Nutrition Intake (Mod: <75% est energy req 7days Body Fat Depletion (Non Severe: Mild Depletion Weight Status: Appropriate SRI BANKS MD Aug 03, 2019 17:07
[2019-08-03] MEDS: FAMOTIDINE 20 MG/2 ML VIAL IVP SCH (20:55)
[2019-08-04] VITALS (24 sets, daily range): BP systolic 102–160; BP diastolic 54–81
[2019-08-04] MEDS: IPRATRPIUM/ALBUTEROL 0.5/2.5MG 3 ML NEBU. NEB SCH ×7 (00:10→22:51)
[2019-08-04] MEDS: HEPARIN 25,000UTS/250ML PREMIX 250 ML IV PRN ×3 (03:34→21:01)
[2019-08-04] MEDS: MIDAZOLAM HCL 50 MG in IV NORMAL SALINE 50ML 50 ML IV PRN ×2 (05:57→17:27)
[2019-08-04 06:15] LABS: BASO % 0 % (0-3); EOS # 0.3 x10^3/uL (0.0-0.7); EOS % 2 % (0-3); HEMATOCRIT 34.3 % (39.0-53.0); HEMOGLOBIN 11.4 g/dL (13.0-17.5); LYMPH # 1.1 x10^3/uL (1.0-4.8); LYMPH % 9 % (24-48); MEAN CORPUSCULAR HEMOGLOBIN 32 pg (25-35); MEAN CORPUSCULAR HGB CONC 33 g/dL (31-37); MEAN CORPUSCULAR VOLUME 95 fL (79-100); MONO # 0.5 x10^3/uL (0.0-1.1); MONO % 4 % (0-9); NEUT # 10.8 x10^3/uL (1.8-7.7); NEUT % 85 % (31-73); PLATELET COUNT 247 x10^3/uL (140-400); RED BLOOD COUNT 3.62 x10^6/uL (4.30-5.70); RED CELL DISTRIBUTION WIDTH 13.8 % (11.5-14.5); WHITE BLOOD COUNT 12.8 x10^3/uL (4.0-11.0)
[2019-08-04 06:31] LABS: ALBUMIN 2.1 g/dL (3.4-5.0); CALCIUM 8.2 mg/dL (8.5-10.1); CREATININE 3.7 mg/dL (0.7-1.3); GFR 16.5; PHOSPHORUS 5.4 mg/dL (2.6-4.7); POTASSIUM 3.7 mmol/L (3.5-5.1)
[2019-08-04] MEDS ORDERED: fentaNYL PF VIAL 100 MCG/2 ML VIAL IV PRN ×2 (07:00)
[2019-08-04] MEDS ORDERED: ONDANSETRON PF 4 MG/2 ML VIAL. IV PRN (07:00)
[2019-08-04] MEDS ORDERED: PROCHLORPERAZINE 10 MG/2 ML VIAL. IV PRN (07:00)
[2019-08-04] MEDS ORDERED: IV RINGERS,LACTATED 1000ML 1,000 ML IV SCH (07:00)
[2019-08-04 07:31] LABS: BASE EXCESS ABG -2 mmol/L (-3-3); HCO3 ABG 22 mmol/L (21-28); PCO2 ABG 35 mmHg (35-46); PO2 ABG 97 mmHg (65-108); SAT O2 ABG 97 % (92-99)
--- NOTE | 2019-08-04 08:00 | PDOC ---
Infectious Disease Note Subjective Subjective Orally intubated/vent and sedated FiO2 40% SpO2 96% UO low ROS ROS unable to obtain Vital Sign Vital Signs Vital Signs Date Time Temp Pulse Resp B/P (MAP) Pulse Ox O2 Delivery O2 Flow Rate FiO2 08/04/19 07:20 99 Ventilator 08/04/19 06:00 82 24 120/61 (80) 08/04/19 04:00 98.6 98.6 08/03/19 15:16 80.0 Physical Exam PHYSICAL EXAM GENERAL: Sedated, orally intubated/vent HEENT: Pupils equal, ETT and OGT in place. NECK: Supple. LUNGS: Diminished aeration bases HEART: S1, S2, irregular rhythm. ABDOMEN: Obese, soft, mildly distended : Valladares in place, scrotal swelling, erythema, EXTREMITIES: Ischemic changes right foot with gangrene toe; Left foot pink. Rooke boots bilaterally DERMATOLOGIC: No generalized rash. NEUROLOGIC: Sedated and intubated. RIJ without signs of complications . R HD cath (08/02) PIVs Labs Lab Laboratory Tests Test 08/03/19 08:10 08/03/19 08:38 08/03/19 16:21 08/04/19 05:30 O2 Saturation 97 % (92-99) Arterial Blood pH 7.36 (7.35-7.45) Arterial Blood pCO2 at Patient Temp 39 mmHg (35-46) Arterial Blood pO2 at Patient Temp 97 mmHg (65-108) Arterial Blood HCO3 21 mmol/L (21-28) Arterial Blood Base Excess -4 mmol/L (-3-3) FiO2 40 Heparin Anti-Xa Act, Unfractionated 0.40 IU/mL (0.30-0.70) 0.40 IU/mL (0.30-0.70) White Blood Count 12.8 x10^3/uL (4.0-11.0) Red Blood Count 3.62 x10^6/uL (4.30-5.70) Hemoglobin 11.4 g/dL (13.0-17.5) Hematocrit 34.3 % (39.0-53.0) Mean Corpuscular Volume 95 fL (79-100) Mean Corpuscular Hemoglobin 32 pg (25-35) Mean Corpuscular Hemoglobin Concent 33 g/dL (31-37) Red Cell Distribution Width 13.8 % (11.5-14.5) Platelet Count 247 x10^3/uL (140-400) Neutrophils (%) (Auto) 85 % (31-73) Lymphocytes (%) (Auto) 9 % (24-48) Monocytes (%) (Auto) 4 % (0-9) Eosinophils (%) (Auto) 2 % (0-3) Basophils (%) (Auto) 0 % (0-3) Neutrophils # (Auto) 10.8 x10^3/uL (1.8-7.7) Lymphocytes # (Auto) 1.1 x10^3/uL (1.0-4.8) Monocytes # (Auto) 0.5 x10^3/uL (0.0-1.1) Eosinophils # (Auto) 0.3 x10^3/uL (0.0-0.7) Basophils # (Auto) 0.0 x10^3/uL (0.0-0.2) Sodium Level 138 mmol/L (136-145) Potassium Level 3.7 mmol/L (3.5-5.1) Chloride Level 100 mmol/L (98-107) Carbon Dioxide Level 26 mmol/L (21-32) Anion Gap 12 (6-14) Blood Urea Nitrogen 72 mg/dL (8-26) Creatinine 3.7 mg/dL (0.7-1.3) Estimated GFR (Cockcroft-Gault) 16.5 Glucose Level 85 mg/dL (70-99) Calcium Level 8.2 mg/dL (8.5-10.1) Phosphorus Level 5.4 mg/dL (2.6-4.7) Albumin 2.1 g/dL (3.4-5.0) Micro Streptococcus pneumoniae Mucoid strain Performed at: DA - [facility] [address] [address], [place], [place] [id number] Cheerleading Coach: MILADY Wang MD, Phone: [phone] Streptococcus pneumoniae Mucoid strain This nonmeningitis penicillin-susceptible pneumococcal isolate can be considered susceptible to the oral agents amoxicillin, amoxicillin-clavulanic acid, ampicillin, cefaclor, cefdinir, cefditoren, cefpodoxime, cefprozil, cefuroxime, and loracarbef, and to the parenteral agents ampicillin, ampicillin-sulbactam, cefepime, cefotaxime, ceftizoxime, ceftriaxone, cefuroxime, ertapenem, imipenem, and meropenem, for approved indications. Doses of IV penicillin of at least 2 million units every 4 hours in adults with normal renal function (12 million units per day) are effective in treating nonmeningeal pneumococcal infections due to strains that are susceptible to penicillin. (CLSI 2011) Use of cefotaxime or ceftriaxone in meningitis requires therapy with maximum doses. (CLSI) For cefotaxime, use of interpretive criteria for nonmeningitis requires doses appropriate for serious pneumococcal infections (e.g., at least 1 g (adults) or 50 mg/kg (children) every eight hours or more frequently). (CLSI) Use of penicillin in meningitis requires therapy with maximum doses of IV penicillin (e.g. at least 3 million units every 4 hours in adults with normal renal function). (CLSI) CONTINUED ON NEXT PAGE RUN DATE: 08/03/19 [facility] *LIVE* PAGE 2 RUN TIME: 181 Specimen Inquiry SPEC: [id number] PATIENT: DEANDRE WARREN [id number] (Continued) Procedure Result ANTIMICROBIAL SUSCEPTIBILITY Final Comment S = Susceptible; I = Intermediate; R = Resistant P = Positive; N = Negative MICS are expressed in micrograms per mL Antibiotic RSLT#1 RSLT#2 RSLT#3 RSLT#4 Cefotaxime (meningitis) S<=0.25 Cefotaxime (non-meningitis) S<=0.25 Ceftriaxone (meningitis) S<=0.25 Ceftriaxone (non-meningitis) S<=0.25 Erythromycin S<=0.06 Levofloxacin S =1 Meropenem S<=0.06 Penicillin (oral pen V) S<=0.03 Penicillin IV (meningitis) S<=0.03 Penicillin IV (non-mening) S<=0.03 Tetracycline R> 4 Trimethoprim/Sulfa S<=0.25 Vancomycin S =0.5 Microbiology 08/02/19 Blood Culture - Preliminary, Resulted NO GROWTH AFTER 1 DAY 07/31/19 - Final, Resulted 07/31/19 - Final, Resulted 07/31/19 - Final, Resulted 07/31/19 - Preliminary, Resulted 07/31/19 - Preliminary, Resulted 07/31/19 - Preliminary, Resulted 07/31/19 Gram Stain Evaluation - Final, Resulted 07/31/19 Sputum Culture, Resulted Pending 07/30/19 Urine Culture - Final, Complete 07/30/19 Urine Culture Result 1 (SONIA) - Final, Complete Objective Assessment Septic shock procalcitonin 25.26 Strep pneumo sepsis (4 of 4 bottles), 07/30 ? source.- ?lung with strep pneumo ? foot -Repeat BC and 08/01 neg to date. TTE (07/31) no evidence veg Influenza A 07/30 , respiratory tract infection. Acute hypoxic respiratory failure with pneumonia, status post intubation. 07/31. strep pneumo & GPR on gram stain/mold. culture in process Severe peripheral vascular disease, right foot ischemia/gangrene Encephalopathy.- sedated now Lactic acidosis. Acute kidney injury Hyperbilirubinemia. LFT elevation. High troponin. Atrial fibrillation with rapid ventricular response, on amiodarone. Homelessness. Groin dermatitis. Tinea Plan Plan of Care Disont Daptomycin Cont Merrem, Zyvox and micafungin - taper soon Tamiflu renally dosed Follow up labs and cultures Maintain aspiration precautions Droplet precautions Surgery today Critically ill Prognosis poor D/w nursing MATTHEW SEPULVEDA MD Aug 04, 2019 08:00
[2019-08-04] MEDS: MICAFUNGIN 100 MG in IV DEXTROSE 5% 100ML 100 ML IV SCH (08:32)
[2019-08-04] MEDS: CHLORHEXIDINE 0.12% 15 ML MOUTHWASH. MM SCH ×2 (08:33→21:01)
[2019-08-04] MEDS: THIAMINE INJ 100 MG in IV DEXTROSE 5% 50 ML IV SCH (08:33)
[2019-08-04] MEDS: MEROPENEM 1 GM in IV NORMAL SALINE 100ML 100 ML IV SCH ×2 (08:33→21:02)
[2019-08-04] MEDS: MULTIVITAMINS,THERAPEUTIC 5 ML ORAL LIQUID. PEG SCH (08:34)
[2019-08-04] MEDS: OSELTAMIVIR 30 MG CAPSULE PO SCH ×2 (08:34→21:02)
--- NOTE | 2019-08-04 09:07 | RAD ---
EXAM: PORTABLE CHEST 1V INDICATION: Respiratory failure. TECHNIQUE: Single AP view COMPARISON: 08/03/2019 chest x-ray FINDINGS: Patient remains intubated with ET tube terminating 2.3 cm above the risa. Right dual-lumen central venous catheter from a jugular approach remains present, unchanged in position with the tip near the cavoatrial junction. Overlapping that is a second right jugular post central venous catheter also similar. In position with the tip obscured by the indwelling dual-lumen catheter. Patient's enteric tube remains present passing below the diaphragms. The heart size is normal. Great vessels show aortic calcification and tortuosity similar to prior. There is persistent prominence of the pulmonary arteries bilaterally. There is no hilar or mediastinal mass. Lungs show bilateral diffuse interstitial pulmonary vascular congestion and bibasilar opacities. Small bilateral pleural effusions are present. No pneumothorax. There are no significant osseous abnormalities. IMPRESSION: Stable lines and tubes with persistent findings of pulmonary vascular congestion and bilateral pleural effusions. Electronically signed by: Margret Arango MD (08/04/2019 9:05 AM) [id number]
--- NOTE | 2019-08-04 09:24 | PDOC ---
SUBJECTIVE ROS Intubated, right 4th toe amputation for the gangrene recommended by Vascular , OBJECTIVE Vital Signs Vital Signs Date Time Temp Pulse Resp B/P (MAP) Pulse Ox O2 Delivery O2 Flow Rate FiO2 08/04/19 07:20 99 Ventilator 08/04/19 06:00 82 24 120/61 (80) 08/04/19 04:00 98.6 98.6 08/03/19 15:16 80.0 I & 0 Intake and Output 08/04/19 07:00 Intake Total 1718 ml Output Total 785 ml Balance 933 ml Intake IV Total 1418 ml Tube Feeding 300 ml Output Urine Total 785 ml Gastric Drainage Total 0 ml PHYSICAL EXAM Physical Exam GENERAL: Sedated, orally intubated/vent HEENT: ETT and OGT in place. NECK: Supple. LUNGS: Diminished aeration bases HEART: S1, S2, irregular rhythm. ABDOMEN: Obese, soft, : Valladares in place, scrotal swelling, EXTREMITIES: Ischemic changes right foot with bullous lesion/gangrene; DERMATOLOGIC: No generalized rash. NEUROLOGIC: Sedated and intubated. DIAGNOSIS/ASSESSMENT Assessment & Plan ARF: Possible ATN: Patient remains oligo anuric at this time. 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 Acute hypoxic respiratory failure with pneumonia, status post intubation. 07/31. strep pneumo Severe peripheral vascular disease, right foot ischemia/gangrene Encephalopathy.- sedated Lactic acidosis. Hyperbilirubinemia/LFT elevation. Atrial fibrillation with rapid ventricular response, on amiodarone. COMMENT/RELEVANT DATA Meds Current Medications Medications (Trade) Dose Ordered Sig/[place] Start Time Stop Time Status Last Admin Dose Admin Acetaminophen (Tylenol Supp) 650 mg 1X ONCE 07/30/19 20:15 07/30/19 20:16 DC 07/30/19 20:49 650 MG Acetaminophen (Tylenol) 650 mg PRN Q4HRS PRN 07/30/19 20:30 07/31/19 20:29 DC 07/31/19 12:49 650 MG Albumin Human 100 ml @ 100 mls/hr TID 07/31/19 14:30 08/02/19 09:59 DC 08/02/19 09:44 100 MLS/HR Albuterol Sulfate (Ventolin Neb Soln) 10 mg 1X ONCE 07/30/19 18:00 07/30/19 18:01 DC 07/30/19 18:00 10 MG Albuterol/ Ipratropium (Duoneb) 3 ml Q4HRS 07/31/19 04:00 08/04/19 07:20 3 ML Amiodarone HCl 150 mg/Dextrose 103 ml @ 618 mls/hr 1X ONCE 07/30/19 18:45 07/30/19 18:54 DC 07/30/19 20:07 618 MLS/HR Amiodarone HCl 450 mg/Dextrose 259 ml @ 0 mls/hr CONT PRN 07/30/19 18:45 07/30/19 20:21 33.3 MLS/HR Bisacodyl (Dulcolax Supp) 10 mg PRN DAILY PRN 07/31/19 15:00 Cefazolin Sodium 1 gm/Sodium Chloride 500 ml @ 500 mls/hr 1X ONCE 08/04/19 06:00 08/04/19 06:59 DC Chlorhexidine Gluconate (Peridex) 15 ml BID 07/30/19 21:00 08/04/19 08:33 15 ML Daptomycin 490 mg/ Sodium Chloride 50 ml @ 100 mls/hr Q48H 08/01/19 10:00 08/04/19 07:59 DC 08/03/19 11:19 100 MLS/HR Digoxin (Lanoxin) 250 mcg 1X ONCE 07/31/19 00:30 07/31/19 00:31 DC 07/31/19 00:12 250 MCG Diltiazem HCl (Cardizem Iv Push) 10 mg 1X ONCE 07/30/19 18:00 07/30/19 18:01 DC 07/30/19 18:01 10 MG Diltiazem HCl 125 mg/Sodium Chloride 125 ml @ 5 mls/hr CONT PRN 07/31/19 01:00 08/01/19 03:03 5 MLS/HR Dobutamine HCl/ Dextrose 250 ml @ 0 mls/hr CONT PRN 07/31/19 15:00 UNV Etomidate (Amidate) 20 mg 1X ONCE 07/30/19 23:45 07/30/19 23:46 DC 07/30/19 19:27 20 MG Famotidine (Pepcid Vial) 20 mg BID 07/31/19 21:00 UNV Fentanyl Citrate (Fentanyl 2ml Vial) 50 mcg PRN Q5MIN PRN 08/04/19 07:00 08/05/19 06:59 Furosemide (Lasix) 40 mg 1X ONCE 08/01/19 22:30 08/01/19 22:31 DC 08/01/19 22:14 40 MG Heparin Sodium (Porcine) (Heparin Sodium) 2,200 unit PRN Q6HRS PRN 07/30/19 20:45 08/01/19 15:42 2,200 UNIT Heparin Sodium/ Dextrose 250 ml @ 0 mls/hr CONT PRN 07/31/19 00:00 UNV Info (Anti-Coagulation Monitoring By Pharmacy) 1 each PRN DAILY PRN 07/30/19 21:00 08/03/19 16:04 1 EACH Info (PHARMACY MONITORING -- do not chart) 1 each PRN DAILY PRN 08/03/19 13:45 Lidocaine HCl (Buffered Lidocaine 1%) 3 ml 1X ONCE 08/03/19 09:30 08/03/19 09:31 DC 08/03/19 09:28 3 ML Linezolid/Dextrose 300 ml @ 300 mls/hr Q12HR 07/31/19 09:00 08/04/19 08:33 300 MLS/HR Lorazepam (Ativan Inj) 2 mg STK-MED ONCE 07/30/19 18:14 07/30/19 18:14 DC Meropenem 1 gm/ Sodium Chloride 100 ml @ 200 mls/hr Q12HR 07/31/19 09:00 08/04/19 08:33 200 MLS/HR Micafungin Sodium 100 mg/Dextrose 100 ml @ 100 mls/hr Q24H 07/31/19 08:00 08/04/19 08:32 100 MLS/HR Midazolam HCl 50 mg/Sodium Chloride 50 ml @ 0 mls/hr CONT PRN 07/31/19 00:15 08/04/19 05:57 5 MLS/HR Morphine Sulfate (Morphine Sulfate) 4 mg PRN Q1HR PRN 07/30/19 19:15 07/31/19 00:11 DC Multivitamins/ Minerals Therapeutic (Centrum Multivit-Mineral Liq) 5 ml DAILY 08/03/19 12:00 08/04/19 08:34 5 ML Norepinephrine Bitartrate 8 mg/ Dextrose 258 ml @ 0 mls/hr CONT PRN 07/30/19 19:00 07/31/19 08:04 DC Ondansetron HCl (Zofran) 4 mg PRN Q6HRS PRN 08/04/19 07:00 08/05/19 06:59 Oseltamivir Phosphate (Tamiflu) 30 mg BID 07/31/19 09:00 08/05/19 08:59 08/04/19 08:34 30 MG Piperacillin Sod/ Tazobactam Sod 4.5 gm/Sodium Chloride 100 ml @ 200 mls/hr 1X ONCE 07/30/19 19:00 07/31/19 08:04 DC 07/30/19 19:06 200 MLS/HR Potassium Bicarbonate (Potassium Effervescent Tablet) 20 meq 1X ONCE 08/01/19 22:30 08/01/19 22:31 DC 08/01/19 22:14 20 MEQ Potassium Chloride/Water 100 ml @ 100 mls/hr Q1H 07/30/19 19:30 07/30/19 21:29 DC 07/30/19 21:31 100 MLS/HR Prochlorperazine (Compazine) 25 mg PRN Q12HR PRN 07/31/19 15:00 Prochlorperazine Edisylate (Compazine) 5 mg PACU PRN PRN 08/04/19 07:00 08/05/19 06:59 Ringer's Solution 1,000 ml @ 30 mls/hr Q24H 08/04/19 07:00 08/04/19 18:59 Rocuronium [place] (Zemuron) 50 mg 1X ONCE 07/30/19 23:45 07/30/19 23:46 DC 07/30/19 19:28 50 MG Sodium Bicarbonate 100 meq/Dextrose 1,100 ml @ 75 mls/hr 1X ONCE 07/30/19 23:00 07/31/19 13:39 DC 07/31/19 01:54 75 MLS/HR Sodium Chloride 1,000 ml @ 400 mls/hr Q2H30M PRN 08/03/19 13:31 08/04/19 01:30 DC Sodium Chloride (Normal Saline Flush) 3 ml QSHIFT PRN 07/31/19 15:00 Thiamine HCl 100 mg/Dextrose 51 ml @ 102 mls/hr DAILY 07/31/19 17:00 08/04/19 08:33 102 MLS/HR Vancomycin HCl (Vanco Per Pharmacy) 1 each PRN DAILY PRN 07/31/19 02:30 07/31/19 08:06 DC 07/31/19 03:30 1 EACH Vancomycin HCl (Vancomycin Trough Level) 1 each 1X ONCE 08/01/19 07:30 08/01/19 07:31 Cancel Vancomycin HCl 1.25 gm/Sodium Chloride 250 ml @ 167 mls/hr Q12H 07/31/19 08:00 07/31/19 08:06 DC 07/31/19 07:57 167 MLS/HR Vancomycin HCl 2 gm/Sodium Chloride 500 ml @ 250 mls/hr 1X ONCE 07/30/19 19:15 07/30/19 21:14 DC 07/30/19 20:15 250 MLS/HR Vitamin A/Vitamin D (Vitamin A & D Ointment) 1 [place] PRN Q1HR PRN 07/31/19 16:45 08/03/19 08:14 1 [place] Lab Laboratory Tests Test 08/03/19 16:21 08/04/19 05:30 Heparin Anti-Xa Act, Unfractionated 0.40 IU/mL (0.30-0.70) White Blood Count 12.8 x10^3/uL (4.0-11.0) Red Blood Count 3.62 x10^6/uL (4.30-5.70) Hemoglobin 11.4 g/dL (13.0-17.5) Hematocrit 34.3 % (39.0-53.0) Mean Corpuscular Volume 95 fL (79-100) Mean Corpuscular Hemoglobin 32 pg (25-35) Mean Corpuscular Hemoglobin Concent 33 g/dL (31-37) Red Cell Distribution Width 13.8 % (11.5-14.5) Platelet Count 247 x10^3/uL (140-400) Neutrophils (%) (Auto) 85 % (31-73) Lymphocytes (%) (Auto) 9 % (24-48) Monocytes (%) (Auto) 4 % (0-9) Eosinophils (%) (Auto) 2 % (0-3) Basophils (%) (Auto) 0 % (0-3) Neutrophils # (Auto) 10.8 x10^3/uL (1.8-7.7) Lymphocytes # (Auto) 1.1 x10^3/uL (1.0-4.8) Monocytes # (Auto) 0.5 x10^3/uL (0.0-1.1) Eosinophils # (Auto) 0.3 x10^3/uL (0.0-0.7) Basophils # (Auto) 0.0 x10^3/uL (0.0-0.2) Sodium Level 138 mmol/L (136-145) Potassium Level 3.7 mmol/L (3.5-5.1) Chloride Level 100 mmol/L (98-107) Carbon Dioxide Level 26 mmol/L (21-32) Anion Gap 12 (6-14) Blood Urea Nitrogen 72 mg/dL (8-26) Creatinine 3.7 mg/dL (0.7-1.3) Estimated GFR (Cockcroft-Gault) 16.5 Glucose Level 85 mg/dL (70-99) Calcium Level 8.2 mg/dL (8.5-10.1) Phosphorus Level 5.4 mg/dL (2.6-4.7) Albumin 2.1 g/dL (3.4-5.0) Results All relevant outside records, renal labs, imaging studies, telemetry/EKG's were reviewed. Other Great vessels show aortic calcification and tortuosity similar to prior. There is persistent prominence of the pulmonary arteries bilaterally. There is no hilar or mediastinal mass. Lungs show bilateral diffuse interstitial pulmonary vascular congestion and bibasilar opacities. Small bilateral pleural effusions are present. No pneumothorax. There are no significant osseous abnormalities. IMPRESSION: Stable lines and tubes with persistent findings of pulmonary vascular congestion and bilateral pleural effusions. JOSE DAVID ANTON MD Aug 04, 2019 09:24
--- NOTE | 2019-08-04 10:26 | PDOC ---
PROGRESS NOTES History of Present Illness History of Present Illness VTE Prophylaxis Ordered VTE Prophylaxis Devices: Contraindicated VTE Pharmacological Prophylaxi: Yes Assessment/Plan Assessment/Plan impression 1. ACUTE HYPOXIC RESPIRATORY FAILURE 2. INFLUENZA A 3. Sepsis 4, PNA (pneumonia) 5. Altered mental status 6. ischemic right 4th toe 7. SONIA 8. a fib rvr 9. severe sepsis 10. homeless, self neglect due to lack of funds 11. right foot with LARGE LATERAL bullous lesion/gangrene plan admit ICU BED CONSULT PULM CONSULT ID Daptomycin and Merrem and Tamiflu renally dosed Zyvox Micafungin, for groin dermatitis, // yeast. VENT SUPPORT CONSULT NEUROLOGY dvt prophylaxis vascular surgery FOLLOWING Nephrology consult cardiology consult cardizem drip Let the tissues demarcate and possibly areas heal. . Will continue heparin drip and Rooke boots. GUARDED PROGNOSIS 31 min cc time Vitals Vitals Vital Signs Date Time Temp Pulse Resp B/P (MAP) Pulse Ox O2 Delivery O2 Flow Rate FiO2 08/04/19 09:00 80 24 111/59 (76) 99 Ventilator 08/04/19 07:00 98.4 98.4 08/03/19 15:16 80.0 Physical Exam Physical Exam GENERAL: Sedated, orally intubated/vent HEENT: Pupils equal, ETT and OGT in place. NECK: Supple. LUNGS: Diminished aeration bases HEART: S1, S2, irregular rhythm. ABDOMEN: Obese, soft, mildly distended : Valladares in place, scrotal swelling, erythema, EXTREMITIES: Ischemic changes right foot with gangrene toe; Left foot pink. Rooke boots bilaterally DERMATOLOGIC: No generalized rash. NEUROLOGIC: Sedated and intubated. RIJ without signs of complications . R HD cath (08/02) PIVs General: Other (intubated) Heart: Other (irregular rhythm) Lungs: Crackles Abdomen: Normal bowel sounds Extremities: No cyanosis, Other (ischemic right 4th toe) Skin: Other (right 4th toe lesion) Labs LABS SPEC #: [id number] YASSINE: 08/01/19 STATUS: RES REQ #: [id number] RECD: 08/01/19 [facility] [address]: YURI CHAWLA MD SOURCE: BLOOD ENTR: 08/01/19-[address] [facility] [address]: CYNTHIA DE ANDA [facility] MD,INEZ BANKS,SRI PINON,JOHN Agudelo MD NO PCP ORDERED: BCULT Procedure Result BLOOD CULTURE Preliminary NO GROWTH AFTER 3 DAYS INDICATION: Respiratory failure. TECHNIQUE: Single AP view COMPARISON: 08/03/2019 chest x-ray FINDINGS: Patient remains intubated with ET tube terminating 2.3 cm above the risa. Right dual-lumen central venous catheter from a jugular approach remains present, unchanged in position with the tip near the cavoatrial junction. Overlapping that is a second right jugular post central venous catheter also similar. In position with the tip obscured by the indwelling dual-lumen catheter. Patient's enteric tube remains present passing below the diaphragms. The heart size is normal. Great vessels show aortic calcification and tortuosity similar to prior. There is persistent prominence of the pulmonary arteries bilaterally. There is no hilar or mediastinal mass. Lungs show bilateral diffuse interstitial pulmonary vascular congestion and bibasilar opacities. Small bilateral pleural effusions are present. No pneumothorax. There are no significant osseous abnormalities. IMPRESSION: Stable lines and tubes with persistent findings of pulmonary vascular congestion and bilateral pleural effusions. Electronically signed by: Lola Arango MD (08/04/2019 9:05 AM) [id number] DICTATED and SIGNED BY: LOLA ARANGO MD DATE: 08/04/19904 Laboratory Tests Test 08/03/19 16:21 08/04/19 05:30 Heparin Anti-Xa Act, Unfractionated 0.40 IU/mL (0.30-0.70) White Blood Count 12.8 x10^3/uL (4.0-11.0) Red Blood Count 3.62 x10^6/uL (4.30-5.70) Hemoglobin 11.4 g/dL (13.0-17.5) Hematocrit 34.3 % (39.0-53.0) Mean Corpuscular Volume 95 fL (79-100) Mean Corpuscular Hemoglobin 32 pg (25-35) Mean Corpuscular Hemoglobin Concent 33 g/dL (31-37) Red Cell Distribution Width 13.8 % (11.5-14.5) Platelet Count 247 x10^3/uL (140-400) Neutrophils (%) (Auto) 85 % (31-73) Lymphocytes (%) (Auto) 9 % (24-48) Monocytes (%) (Auto) 4 % (0-9) Eosinophils (%) (Auto) 2 % (0-3) Basophils (%) (Auto) 0 % (0-3) Neutrophils # (Auto) 10.8 x10^3/uL (1.8-7.7) Lymphocytes # (Auto) 1.1 x10^3/uL (1.0-4.8) Monocytes # (Auto) 0.5 x10^3/uL (0.0-1.1) Eosinophils # (Auto) 0.3 x10^3/uL (0.0-0.7) Basophils # (Auto) 0.0 x10^3/uL (0.0-0.2) Sodium Level 138 mmol/L (136-145) Potassium Level 3.7 mmol/L (3.5-5.1) Chloride Level 100 mmol/L (98-107) Carbon Dioxide Level 26 mmol/L (21-32) Anion Gap 12 (6-14) Blood Urea Nitrogen 72 mg/dL (8-26) Creatinine 3.7 mg/dL (0.7-1.3) Estimated GFR (Cockcroft-Gault) 16.5 Glucose Level 85 mg/dL (70-99) Calcium Level 8.2 mg/dL (8.5-10.1) Phosphorus Level 5.4 mg/dL (2.6-4.7) Albumin 2.1 g/dL (3.4-5.0) Assessment and Plan Assessmemt and Plan Problems Medical Problems: (1) Altered mental status Status: Acute Comment Review of Relevant I have reviewed the following items hay (where applicable) has been applied. Labs Laboratory Tests Test 08/02/19 15:00 08/02/19 21:15 08/02/19 21:30 08/03/19 03:00 Heparin Anti-Xa Act, Unfractionated 0.22 IU/mL (0.30-0.70) 0.21 IU/mL (0.30-0.70) 0.45 IU/mL (0.30-0.70) Sodium Level 135 mmol/L (136-145) Potassium Level 3.4 mmol/L (3.5-5.1) Chloride Level 98 mmol/L (98-107) Carbon Dioxide Level 23 mmol/L (21-32) Anion Gap 14 (6-14) Blood Urea Nitrogen 94 mg/dL (8-26) Creatinine 4.9 mg/dL (0.7-1.3) Estimated GFR (Cockcroft-Gault) 11.9 Glucose Level 86 mg/dL (70-99) Calcium Level 7.9 mg/dL (8.5-10.1) Magnesium Level 2.5 mg/dL (1.8-2.4) Test 08/03/19 05:15 08/03/19 08:10 08/03/19 08:38 08/03/19 16:21 White Blood Count 13.3 x10^3/uL (4.0-11.0) Red Blood Count 3.54 x10^6/uL (4.30-5.70) Hemoglobin 11.2 g/dL (13.0-17.5) Hematocrit 33.6 % (39.0-53.0) Mean Corpuscular Volume 95 fL (79-100) Mean Corpuscular Hemoglobin 32 pg (25-35) Mean Corpuscular Hemoglobin Concent 33 g/dL (31-37) Red Cell Distribution Width 13.8 % (11.5-14.5) Platelet Count 234 x10^3/uL (140-400) Neutrophils (%) (Auto) 87 % (31-73) Lymphocytes (%) (Auto) 7 % (24-48) Monocytes (%) (Auto) 3 % (0-9) Eosinophils (%) (Auto) 3 % (0-3) Basophils (%) (Auto) 0 % (0-3) Neutrophils # (Auto) 11.6 x10^3/uL (1.8-7.7) Lymphocytes # (Auto) 0.9 x10^3/uL (1.0-4.8) Monocytes # (Auto) 0.4 x10^3/uL (0.0-1.1) Eosinophils # (Auto) 0.3 x10^3/uL (0.0-0.7) Basophils # (Auto) 0.0 x10^3/uL (0.0-0.2) Sodium Level 136 mmol/L (136-145) Potassium Level 3.5 mmol/L (3.5-5.1) Chloride Level 99 mmol/L (98-107) Carbon Dioxide Level 23 mmol/L (21-32) Anion Gap 14 (6-14) Blood Urea Nitrogen 104 mg/dL (8-26) Creatinine 5.0 mg/dL (0.7-1.3) Estimated GFR (Cockcroft-Gault) 11.7 Glucose Level 81 mg/dL (70-99) Calcium Level 8.0 mg/dL (8.5-10.1) Magnesium Level 2.8 mg/dL (1.8-2.4) Hepatitis B Surface Antigen Nonreactive (Nonreactive) Hepatitis B Surface Antibody Nonreactive O2 Saturation 97 % (92-99) Arterial Blood pH 7.36 (7.35-7.45) Arterial Blood pCO2 at Patient Temp 39 mmHg (35-46) Arterial Blood pO2 at Patient Temp 97 mmHg (65-108) Arterial Blood HCO3 21 mmol/L (21-28) Arterial Blood Base Excess -4 mmol/L (-3-3) FiO2 40 Heparin Anti-Xa Act, Unfractionated 0.40 IU/mL (0.30-0.70) 0.40 IU/mL (0.30-0.70) Test 08/04/19 05:30 White Blood Count 12.8 x10^3/uL (4.0-11.0) Red Blood Count 3.62 x10^6/uL (4.30-5.70) Hemoglobin 11.4 g/dL (13.0-17.5) Hematocrit 34.3 % (39.0-53.0) Mean Corpuscular Volume 95 fL (79-100) Mean Corpuscular Hemoglobin 32 pg (25-35) Mean Corpuscular Hemoglobin Concent 33 g/dL (31-37) Red Cell Distribution Width 13.8 % (11.5-14.5) Platelet Count 247 x10^3/uL (140-400) Neutrophils (%) (Auto) 85 % (31-73) Lymphocytes (%) (Auto) 9 % (24-48) Monocytes (%) (Auto) 4 % (0-9) Eosinophils (%) (Auto) 2 % (0-3) Basophils (%) (Auto) 0 % (0-3) Neutrophils # (Auto) 10.8 x10^3/uL (1.8-7.7) Lymphocytes # (Auto) 1.1 x10^3/uL (1.0-4.8) Monocytes # (Auto) 0.5 x10^3/uL (0.0-1.1) Eosinophils # (Auto) 0.3 x10^3/uL (0.0-0.7) Basophils # (Auto) 0.0 x10^3/uL (0.0-0.2) Sodium Level 138 mmol/L (136-145) Potassium Level 3.7 mmol/L (3.5-5.1) Chloride Level 100 mmol/L (98-107) Carbon Dioxide Level 26 mmol/L (21-32) Anion Gap 12 (6-14) Blood Urea Nitrogen 72 mg/dL (8-26) Creatinine 3.7 mg/dL (0.7-1.3) Estimated GFR (Cockcroft-Gault) 16.5 Glucose Level 85 mg/dL (70-99) Calcium Level 8.2 mg/dL (8.5-10.1) Phosphorus Level 5.4 mg/dL (2.6-4.7) Albumin 2.1 g/dL (3.4-5.0) Laboratory Tests Test 08/03/19 16:21 08/04/19 05:30 Heparin Anti-Xa Act, Unfractionated 0.40 IU/mL (0.30-0.70) White Blood Count 12.8 x10^3/uL (4.0-11.0) Red Blood Count 3.62 x10^6/uL (4.30-5.70) Hemoglobin 11.4 g/dL (13.0-17.5) Hematocrit 34.3 % (39.0-53.0) Mean Corpuscular Volume 95 fL (79-100) Mean Corpuscular Hemoglobin 32 pg (25-35) Mean Corpuscular Hemoglobin Concent 33 g/dL (31-37) Red Cell Distribution Width 13.8 % (11.5-14.5) Platelet Count 247 x10^3/uL (140-400) Neutrophils (%) (Auto) 85 % (31-73) Lymphocytes (%) (Auto) 9 % (24-48) Monocytes (%) (Auto) 4 % (0-9) Eosinophils (%) (Auto) 2 % (0-3) Basophils (%) (Auto) 0 % (0-3) Neutrophils # (Auto) 10.8 x10^3/uL (1.8-7.7) Lymphocytes # (Auto) 1.1 x10^3/uL (1.0-4.8) Monocytes # (Auto) 0.5 x10^3/uL (0.0-1.1) Eosinophils # (Auto) 0.3 x10^3/uL (0.0-0.7) Basophils # (Auto) 0.0 x10^3/uL (0.0-0.2) Sodium Level 138 mmol/L (136-145) Potassium Level 3.7 mmol/L (3.5-5.1) Chloride Level 100 mmol/L (98-107) Carbon Dioxide Level 26 mmol/L (21-32) Anion Gap 12 (6-14) Blood Urea Nitrogen 72 mg/dL (8-26) Creatinine 3.7 mg/dL (0.7-1.3) Estimated GFR (Cockcroft-Gault) 16.5 Glucose Level 85 mg/dL (70-99) Calcium Level 8.2 mg/dL (8.5-10.1) Phosphorus Level 5.4 mg/dL (2.6-4.7) Albumin 2.1 g/dL (3.4-5.0) Microbiology 08/02/19 Blood Culture - Preliminary, Resulted NO GROWTH AFTER 2 DAYS 07/31/19 - Final, Resulted 07/31/19 - Final, Resulted 07/31/19 - Final, Resulted 07/31/19 - Preliminary, Resulted 07/31/19 - Preliminary, Resulted 07/31/19 - Preliminary, Resulted 07/31/19 Gram Stain Evaluation - Final, Resulted 07/31/19 Sputum Culture, Resulted Pending 07/30/19 Urine Culture - Final, Complete 07/30/19 Urine Culture Result 1 (SONIA) - Final, Complete Medications Current Medications Albuterol/ Ipratropium (Duoneb) 3 ml 1X ONCE NEB Last administered on 07/30/19at 18:00; Start 07/30/19 at 18:00; Stop 07/30/19 at 18:01; Status DC Albuterol Sulfate (Ventolin Neb Soln) 10 mg 1X ONCE CONT NEB Last administered on 07/30/19at 18:00; Start 07/30/19 at 18:00; Stop 07/30/19 at 18:01; Status DC Morphine Sulfate (Morphine Sulfate) 2 mg PRN Q15MIN PRN IV/SQ PAIN GREATER THAN 3/10 Last administered on 07/30/19at 18:08; Start 07/30/19 at 18:00; Stop 07/31/19 at 00:10; Status DC Diltiazem HCl (Cardizem Iv Push) 10 mg 1X ONCE IVP Last administered on 07/30/19at 18:01; Start 07/30/19 at 18:00; Stop 07/30/19 at 18:01; Status DC Diltiazem HCl 125 mg/Sodium Chloride 125 ml @ 5 mls/hr 1X ONCE IV Last administered on 07/30/19at 18:36; Start 07/30/19 at 18:00; Stop 07/31/19 at 18:59; Status DC Lorazepam (Ativan Inj) 2 mg 1X ONCE IVP Last administered on 07/30/19at 18:35; Start 07/30/19 at 18:15; Stop 07/30/19 at 18:16; Status DC Lorazepam (Ativan Inj) 2 mg STK-MED ONCE .ROUTE ; Start 07/30/19 at 18:14; Stop 07/30/19 at 18:14; Status DC Digoxin (Lanoxin) 250 mcg 1X ONCE IV Last administered on 07/30/19at 18:53; Start 07/30/19 at 18:45; Stop 07/30/19 at 18:46; Status DC Amiodarone HCl 150 mg/Dextrose 103 ml @ 618 mls/hr 1X ONCE IV Last administered on 07/30/19at 20:07; Start 07/30/19 at 18:45; Stop 07/30/19 at 1 8:54; Status DC Amiodarone HCl 450 mg/Dextrose 259 ml @ 0 mls/hr CONT PRN IV SEE I/O RECORD Last administered on 07/30/19at 20:21; Start 07/30/19 at 18:45 Sodium Chloride 1,000 ml @ 1,000 mls/hr 1X ONCE IV Last administered on 07/30/19at 18:20; Start 07/30/19 at 18:45; Stop 07/31/19 at 02:15; Status DC Sodium Chloride 2,130 ml @ 2,130 mls/hr Q1H IV Last administered on 07/30/19at 19:02; Start 07/30/19 at 18:53; Stop 07/31/19 at 02:15; Status DC Piperacillin Sod/ Tazobactam Sod 4.5 gm/Sodium Chloride 100 ml @ 200 mls/hr 1X ONCE IV Last administered on 07/30/19at 19:06; Start 07/30/19 at 19:00; Stop 07/31/19 at 08:04; Status DC Vancomycin HCl (Vanco Per Pharmacy) 1 each 1X ONCE MC ; Start 07/30/19 at 19:00; Stop 07/31/19 at 08:04; Status DC Norepinephrine Bitartrate 8 mg/ Dextrose 258 ml @ 0 mls/hr CONT PRN IV PER PROTOCOL; Start 07/30/19 at 19:00; Stop 07/31/19 at 08:04; Status DC Potassium Chloride/Water 100 ml @ 100 mls/hr Q1H IV Last administered on 07/30/19at 21:31; Start 07/30/19 at 19:30; Stop 07/30/19 at 21:29; Status DC Vancomycin HCl 2 gm/Sodium Chloride 500 ml @ 250 mls/hr 1X ONCE IV Last administered on 07/30/19at 20:15; Start 07/30/19 at 19:15; Stop 07/30/19 at 21:14; Status DC Fentanyl Citrate (Fentanyl 2ml Vial) 25 mcg PRN Q1HR PRN IV SEE COMMENTS; Start 07/30/19 at 19:15; Stop 07/31/19 at 00:11; Status DC Fentanyl Citrate (Fentanyl 2ml Vial) 50 mcg PRN Q1HR PRN IV SEE COMMENTS; Start 07/30/19 at 19:15; Stop 07/31/19 at 00:11; Status DC Chlorhexidine Gluconate (Peridex) 15 ml BID MM Last administered on 08/04/19at 08:33; Start 07/30/19 at 21:00 Morphine Sulfate (Morphine Sulfate) 2 mg PRN Q1HR PRN IV SEE COMMENTS.; Start 07/30/19 at 19:15; Stop 07/31/19 at 00:11; Status DC Morphine Sulfate (Morphine Sulfate) 4 mg PRN Q1HR PRN IV SEE COMMENTS.; Start 07/30/19 at 19:15; Stop 07/31/19 at 00:11; Status DC Midazolam HCl 50 mg/Sodium Chloride 50 ml @ 0 mls/hr CONT PRN IV SEE PROTOCOL Last administered on 07/30/19at 20:40; Start 07/30/19 at 19:15; Stop 07/31/19 at 00:10; Status DC Acetaminophen (Tylenol Supp) 650 mg 1X ONCE CA Last administered on 07/30/19at 20:49; Start 07/30/19 at 20:15; Stop 07/30/19 at 20:16; Status DC Ondansetron HCl (Zofran) 4 mg PRN Q8HRS PRN IV NAUSEA/VOMITING; Start 07/30/19 at 20:30; Stop 07/31/19 at 20:29; Status DC Acetaminophen (Tylenol) 650 mg PRN Q4HRS PRN PO FEVER Last administered on 07/31/19at 12:49; Start 07/30/19 at 20:30; Stop 07/31/19 at 20:29; Status DC Heparin Sodium/ Dextrose 250 ml @ 0 mls/hr CONT PRN IV PER PROTOCOL Last administered on 08/04/19at 03:34; Start 07/30/19 at 20:45 Heparin Sodium (Porcine) (Heparin Sodium) 2,200 unit PRN Q6HRS PRN IV FOR UFH LEVEL LESS THAN 0.2 Last administered on 08/01/19at 15:42; Start 07/30/19 at 20:45 Info (Anti-Coagulation Monitoring By Pharmacy) 1 each PRN DAILY PRN MC SEE COMMENTS Last administered on 08/03/19at 16:04; Start 07/30/19 at 21:00 Etomidate (Amidate) 20 mg STK-MED ONCE IV ; Start 07/30/19 at 21:15; Stop 07/30/19 at 21:16; Status DC Rocuronium [place] (Zemuron) 50 mg STK-MED ONCE .ROUTE ; Start 07/30/19 at 21:16; Stop 07/30/19 at 21:16; Status DC Diltiazem HCl 125 mg/Sodium Chloride 125 ml @ 5 mls/hr CONT PRN IV SEE I/O RECORD; Start 07/30/19 at 22:30; Stop 07/31/19 at 06:01; Status DC Sodium Bicarbonate 100 meq/Dextrose 1,100 ml @ 75 mls/hr 1X ONCE IV Last administered on 07/31/19at 01:54; Start 07/30/19 at 23:00; Stop 07/31/19 at 13:39; Status DC Etomidate (Amidate) 20 mg 1X ONCE IV Last administered on 07/30/19at 19:27; Start 07/30/19 at 23:45; Stop 07/30/19 at 23:46; Status DC Rocuronium [place] (Zemuron) 50 mg 1X ONCE IV Last administered on 07/30/19at 19:28; Start 07/30/19 at 23:45; Stop 07/30/19 at 23:46; Status DC Rocuronium [place] (Zemuron) 50 mg 1X ONCE IV Last administered on 07/30/19at 19:28; Start 07/30/19 at 23:45; Stop 07/30/19 at 23:46; Status DC Digoxin (Lanoxin) 250 mcg 1X ONCE IV Last administered on 07/31/19at 00:12; Start 07/31/19 at 00:30; Stop 07/31/19 at 00:31; Status DC Heparin Sodium/ Dextrose 250 ml @ 0 mls/hr CONT PRN IV SEE I/O RECORD; Start 07/31/19 at 00:00; Status UNV Fentanyl Citrate 30 ml @ 0 mls/hr CONT PRN IV SEE PROTOCOL Last administered on 08/03/19at 14:46; Start 07/31/19 at 00:15 Midazolam HCl 50 mg/Sodium Chloride 50 ml @ 0 mls/hr CONT PRN IV SEE PROTOCOL Last administered on 08/04/19at 05:57; Start 07/31/19 at 00:15 Diltiazem HCl 125 mg/Sodium Chloride 125 ml @ 5 mls/hr CONT PRN IV SEE I/O RECORD Last administered on 08/01/19at 03:03; Start 07/31/19 at 01:00 Albuterol/ Ipratropium (Duoneb) 3 ml Q4HRS NEB Last administered on 08/04/19at 07:20; Start 07/31/19 at 04:00 Sodium Chloride 1,000 ml @ 120 mls/hr Q8H20M IV Last administered on 07/31/19at 02:30; Start 07/31/19 at 02:30; Stop 07/31/19 at 13:55; Status DC Vancomycin HCl (Vanco Per Pharmacy) 1 each PRN DAILY PRN MC SEE COMMENTS Last administered on 07/31/19at 03:30; Start 07/31/19 at 02:30; Stop 07/31/19 at 08:06; Status DC Vancomycin HCl 1.25 gm/Sodium Chloride 250 ml @ 167 mls/hr Q12H IV Last administered on 07/31/19at 07:57; Start 07/31/19 at 08:00; Stop 07/31/19 at 08:06; Status DC Vancomycin HCl (Vancomycin Trough Level) 1 each 1X ONCE MC ; Start 08/01/19 at 07:30; Stop 08/01/19 at 07:31; Status Cancel Micafungin Sodium 100 mg/Dextrose 100 ml @ 100 mls/hr Q24H IV Last administered on 08/04/19at 08:32; Start 07/31/19 at 08:00 Oseltamivir Phosphate (Tamiflu) 30 mg BID PO Last administered on 08/04/19at 08:34; Start 07/31/19 at 09:00; Stop 08/05/19 at 08:59 Linezolid/Dextrose 300 ml @ 300 mls/hr Q12HR IV Last administered on 08/04/19at 08:33; Start 07/31/19 at 09:00 Daptomycin 490 mg/ Sodium Chloride 50 ml @ 100 mls/hr Q24H IV Last administered on 07/31/19at 12:40; Start 07/31/19 at 10:00; Stop 08/01/19 at 09: 01; Status DC Meropenem 1 gm/ Sodium Chloride 100 ml @ 200 mls/hr Q12HR IV Last administered on 08/04/19at 08:33; Start 07/31/19 at 09:00 Potassium Bicarbonate (Potassium Effervescent Tablet) 40 meq 1X ONCE PEG Last administered on 07/31/19at 10:54; Start 07/31/19 at 10:30; Stop 07/31/19 at 10:43; Status DC Famotidine (Pepcid Vial) 20 mg QHS IVP Last administered on 08/03/19at 20:55; Start 07/31/19 at 21:00 Albumin Human 100 ml @ 100 mls/hr TID IV Last administered on 08/02/19at 09:44; Start 07/31/19 at 14:30; Stop 08/02/19 at 09:59; Status DC Sodium Chloride 2,340 ml @ 2,340 mls/hr Q1H IV ; Start 07/31/19 at 14:48; Status UNV Sodium Chloride 500 ml @ 1,000 mls/hr PRN Q30MIN PRN IV SEE COMMENTS; Start 07/31/19 at 15:00; Status UNV Dobutamine HCl/ Dextrose 250 ml @ 0 mls/hr CONT PRN IV SEE I/O RECORD; Start 07/31/19 at 15:00; Status UNV Ondansetron HCl (Zofran) 4 mg PRN Q6HRS PRN IV NAUSEA/VOMITING; Start 07/31/19 at 15:00 Prochlorperazine (Compazine) 25 mg PRN Q12HR PRN CA NAUSEA/VOMITING; Start at 15:00 Famotidine (Pepcid Vial) 20 mg BID IVP ; Start 07/31/19 at 21:00; Status UNV Sodium Chloride (Normal Saline Flush) 3 ml QSHIFT PRN IV AFTER MEDS AND BLOOD DRAWS; Start 07/31/19 at 15:00 Bisacodyl (Dulcolax Supp) 10 mg PRN DAILY PRN CA CONSTIPATION; Start 07/31/19 at 15:00 Thiamine HCl 100 mg/Dextrose 51 ml @ 102 mls/hr DAILY IV Last administered on 08/04/19at 08:33; Start 07/31/19 at 17:00 Vitamin A/Vitamin D (Vitamin A & D Ointment) 1 milton PRN Q1HR PRN TP SKIN PROTECTION Last administered on 08/03/19at 08:14; Start 07/31/19 at 16:45 Daptomycin 490 mg/ Sodium Chloride 50 ml @ 100 mls/hr Q48H IV Last administered on 08/03/19at 11:19; Start 08/01/19 at 10:00; Stop 08/04/19 at 07:59; Status DC Furosemide (Lasix) 40 mg 1X ONCE IVP Last administered on 08/01/19at 22:14; Start 08/01/19 at 22:30; Stop 08/01/19 at 22:31; Status DC Potassium Bicarbonate (Potassium Effervescent Tablet) 20 meq 1X ONCE PEG Last administered on 08/01/19at 22:14; Start 08/01/19 at 22:30; Stop 08/01/19 at 22:31; Status DC Lidocaine HCl (Buffered Lidocaine 1%) 3 ml STK-MED ONCE .ROUTE ; Start 08/03/19 at 09:05; Stop 08/03/19 at 09:05; Status DC Lidocaine HCl (Buffered Lidocaine 1%) 3 ml 1X ONCE INJ Last administered on 08/03/19at 09:28; Start 08/03/19 at 09:30; Stop 08/03/19 at 09:31; Status DC Multivitamins/ Minerals Therapeutic (Centrum Multivit-Mineral Liq) 5 ml DAILY PEG Last administered on 08/04/19at 08:34; Start 08/03/19 at 12:00 Sodium Chloride 1,000 ml @ 1,000 mls/hr Q1H PRN IV hypotension; Start 08/03/19 at 13:31; Stop 08/03/19 at 19:30; Status DC Sodium Chloride 1,000 ml @ 400 mls/hr Q2H30M PRN IV PATENCY; Start 08/03/19 at 13:31; Stop 08/04/19 at 01:30; Status DC Info (PHARMACY MONITORING -- do not chart) 1 each PRN DAILY PRN MC SEE COMMENTS; Start 08/03/19 at 13:45; Status UNV Info (PHARMACY MONITORING -- do not chart) 1 each PRN DAILY PRN MC SEE COMMENTS; Start 08/03/19 at 13:45 Ondansetron HCl (Zofran) 4 mg PRN Q6HRS PRN IV NAUSEA/VOMITING; Start 08/04/19 at 07:00; Stop 08/05/19 at 06:59 Fentanyl Citrate (Fentanyl 2ml Vial) 25 mcg PRN Q5MIN PRN IV MILD PAIN 1-3; Start 08/04/19 at 07:00; Stop 08/05/19 at 06:59 Fentanyl Citrate (Fentanyl 2ml Vial) 50 mcg PRN Q5MIN PRN IV MODERATE TO SEVERE PAIN; Start 08/04/19 at 07:00; Stop 08/05/19 at 06:59 Ringer's Solution 1,000 ml @ 30 mls/hr Q24H IV ; Start 08/04/19 at 07:00; Stop 08/04/19 at 18:59 Prochlorperazine Edisylate (Compazine) 5 mg PACU PRN PRN IV NAUSEA, MRX1; Start 08/04/19 at 07:00; Stop 08/05/19 at 06:59 Cefazolin Sodium 1 gm/Sodium Chloride 500 ml @ 500 mls/hr 1X ONCE IRR ; Start 08/04/19 at 06:00; Stop 08/04/19 at 06:59; Status DC Active Scripts Active Proair Hfa (Albuterol Sulfate) 8.5 Gm Hfa.aer.ad 2 Puff IH PRN Q4-6HRS PRN 21 Days Tessalon Perle (Benzonatate) 100 Mg Capsule 1 Cap PO TID Prednisone 50 Mg Tablet 1 Tab PO DAILY Cyclobenzaprine Hcl 5 Mg Tablet 1 Tab PO TID Ibuprofen 800 Mg Tablet 800 Mg PO Q6-8HRS Zofran Odt (Ondansetron) 4 Mg Tab.rapdis 1 Tab SL Q8HRS Ultram (Tramadol Hcl) 50 Mg Tablet 1 Tab PO Q6HRS Vitals/I & O Vital Sign - Last 24 Hours 08/03/19 08/03/19 08/03/19 08/03/19 11:00 12:00 12:00 12:14 Temp 98.4 98.4 Pulse 80 80 Resp 16 16 B/P (MAP) 128/72 (90) 133/69 (90) Pulse Ox 99 98 97 O2 Delivery Ventilator Mechanical Ventilator Ventilator Ventilator 08/03/19 08/03/19 08/03/19 08/03/19 13:00 14:00 14:46 15:00 Pulse 80 82 80 Resp 16 16 16 B/P (MAP) 140/71 (94) 134/74 (94) 142/78 (99) Pulse Ox 99 99 97 99 O2 Delivery Ventilator Ventilator Ventilator O2 Flow Rate 80.0 08/03/19 08/03/19 08/03/19 08/03/19 15:16 16:00 16:00 16:08 Temp 98.9 98.9 Pulse 80 Resp 16 B/P (MAP) 134/70 (91) Pulse Ox 98 98 97 O2 Delivery Ventilator Mechanical Ventilator Ventilator O2 Flow Rate 80.0 08/03/19 08/03/19 08/03/19 08/03/19 17:00 18:00 18:00 19:00 Pulse 84 86 86 Resp 16 16 24 B/P (MAP) 110/67 (81) 128/73 (91) 114/68 (83) Pulse Ox 99 98 99 97 O2 Delivery Ventilator Ventilator Ventilator Ventilator 08/03/19 08/03/19 08/03/19 08/03/19 20:00 20:00 20:11 20:57 Temp 98.7 98.7 Pulse 88 Resp 22 B/P (MAP) 121/72 (88) Pulse Ox 99 97 97 O2 Delivery Mechanical Ventilator Ventilator Ventilator Ventilator 08/03/19 08/03/19 08/03/19 08/03/19 21:00 22:00 23:00 23:59 Pulse 89 88 88 Resp 22 26 B/P (MAP) 119/68 (85) 117/67 (84) 119/67 (84) Pulse Ox 97 97 97 O2 Delivery Ventilator Ventilator Ventilator Mechanical Ventilator 08/04/19 08/04/19 08/04/19 08/04/19 00:00 00:10 01:00 02:00 Temp 98.7 98.7 Pulse 86 88 82 Resp 22 24 24 B/P (MAP) 111/59 (76) 112/60 (77) 103/54 (70) Pulse Ox 97 97 97 98 O2 Delivery Ventilator Ventilator Ventilator Ventilator 08/04/19 08/04/19 08/04/19 08/04/19 02:45 03:00 04:00 04:00 Temp 98.6 98.6 Pulse 84 82 Resp 22 B/P (MAP) 104/55 (71) 103/57 (72) Pulse Ox 98 98 98 O2 Delivery Ventilator Ventilator Ventilator Mechanical Ventilator 08/04/19 08/04/19 08/04/19 08/04/19 05:00 05:40 06:00 07:00 Temp 98.4 98.4 Pulse 89 82 82 Resp 24 24 24 B/P (MAP) 112/56 (74) 120/61 (80) 118/68 (85) Pulse Ox 98 98 99 98 O2 Delivery Ventilator Ventilator Ventilator Ventilator 08/04/19 08/04/19 08/04/19 08/04/19 07:20 08:00 08:00 09:00 Pulse 82 80 Resp 24 24 B/P (MAP) 102/54 (70) 111/59 (76) Pulse Ox 99 99 99 O2 Delivery Ventilator Ventilator Mechanical Ventilator Ventilator Intake and Output 08/03/19 08/03/19 08/04/19 14:59 22:59 06:59 Intake Total 752 ml 866 ml 100 ml Output Total 0 ml 85 ml 700 ml Balance 752 ml 781 ml -600 ml Nutrition Consultation Dietary Evaluation: Recommendations by RD: Dietary education by RD, Increase Calorie Intake, Protein supplementation Comments: REC advance VitalHP 10 ml q8 hrs as tolerated to goal rate 65 ml/hr w/100 ml water flushes q4 hrs or flushes per MD; recommend switching formula back to VitalAF once formula becomes available to avoid excessive protein intake REC Javi BID (once in AM and once in PM) for wound healing, dissolve each packet in ~4 oz water to dissolve and flush tube w/~30 ml water before and after each packet REC MVI for wound healing - discussed RN (Claudia) Expected Outcomes/Goals: Initiation of TFs within 24 - 48 hrs of intubation - met, new goal estanblished New goal 08/02: TF infusion to meet >75% est needs Malnutrition Findings: Food and Nutrition Intake (Mod: <75% est energy req 7days Body Fat Depletion (Non Severe: Mild Depletion Weight Status: Appropriate CORY SCHMIDT MD Aug 04, 2019 10:26
[2019-08-04 11:07] LABS: FIO2 ABG 40
--- NOTE | 2019-08-04 11:27 | PDOC ---
PULMONARY PROGRESS NOTES Subjective SEDATED ON AC MODE IV HEPARIN Vitals Vital Signs Date Time Temp Pulse Resp B/P (MAP) Pulse Ox O2 Delivery O2 Flow Rate FiO2 08/04/19 09:00 80 24 111/59 (76) 99 Ventilator 08/04/19 07:00 98.4 98.4 08/03/19 15:16 80.0 Lungs: Clear Cardiovascular: S1, S2 Abdomen: Soft Extremities: Other (PVD) Skin: Warm Labs Laboratory Tests Test 08/02/19 15:00 08/02/19 21:15 08/02/19 21:30 08/03/19 03:00 Heparin Anti-Xa Act, Unfractionated 0.22 IU/mL (0.30-0.70) 0.21 IU/mL (0.30-0.70) 0.45 IU/mL (0.30-0.70) Sodium Level 135 mmol/L (136-145) Potassium Level 3.4 mmol/L (3.5-5.1) Chloride Level 98 mmol/L (98-107) Carbon Dioxide Level 23 mmol/L (21-32) Anion Gap 14 (6-14) Blood Urea Nitrogen 94 mg/dL (8-26) Creatinine 4.9 mg/dL (0.7-1.3) Estimated GFR (Cockcroft-Gault) 11.9 Glucose Level 86 mg/dL (70-99) Calcium Level 7.9 mg/dL (8.5-10.1) Magnesium Level 2.5 mg/dL (1.8-2.4) Test 08/03/19 05:15 08/03/19 08:10 08/03/19 08:38 08/03/19 16:21 White Blood Count 13.3 x10^3/uL (4.0-11.0) Red Blood Count 3.54 x10^6/uL (4.30-5.70) Hemoglobin 11.2 g/dL (13.0-17.5) Hematocrit 33.6 % (39.0-53.0) Mean Corpuscular Volume 95 fL (79-100) Mean Corpuscular Hemoglobin 32 pg (25-35) Mean Corpuscular Hemoglobin Concent 33 g/dL (31-37) Red Cell Distribution Width 13.8 % (11.5-14.5) Platelet Count 234 x10^3/uL (140-400) Neutrophils (%) (Auto) 87 % (31-73) Lymphocytes (%) (Auto) 7 % (24-48) Monocytes (%) (Auto) 3 % (0-9) Eosinophils (%) (Auto) 3 % (0-3) Basophils (%) (Auto) 0 % (0-3) Neutrophils # (Auto) 11.6 x10^3/uL (1.8-7.7) Lymphocytes # (Auto) 0.9 x10^3/uL (1.0-4.8) Monocytes # (Auto) 0.4 x10^3/uL (0.0-1.1) Eosinophils # (Auto) 0.3 x10^3/uL (0.0-0.7) Basophils # (Auto) 0.0 x10^3/uL (0.0-0.2) Sodium Level 136 mmol/L (136-145) Potassium Level 3.5 mmol/L (3.5-5.1) Chloride Level 99 mmol/L (98-107) Carbon Dioxide Level 23 mmol/L (21-32) Anion Gap 14 (6-14) Blood Urea Nitrogen 104 mg/dL (8-26) Creatinine 5.0 mg/dL (0.7-1.3) Estimated GFR (Cockcroft-Gault) 11.7 Glucose Level 81 mg/dL (70-99) Calcium Level 8.0 mg/dL (8.5-10.1) Magnesium Level 2.8 mg/dL (1.8-2.4) Hepatitis B Surface Antigen Nonreactive (Nonreactive) Hepatitis B Surface Antibody Nonreactive O2 Saturation 97 % (92-99) Arterial Blood pH 7.36 (7.35-7.45) Arterial Blood pCO2 at Patient Temp 39 mmHg (35-46) Arterial Blood pO2 at Patient Temp 97 mmHg (65-108) Arterial Blood HCO3 21 mmol/L (21-28) Arterial Blood Base Excess -4 mmol/L (-3-3) FiO2 40 Heparin Anti-Xa Act, Unfractionated 0.40 IU/mL (0.30-0.70) 0.40 IU/mL (0.30-0.70) Test 08/04/19 05:30 08/04/19 07:20 White Blood Count 12.8 x10^3/uL (4.0-11.0) Red Blood Count 3.62 x10^6/uL (4.30-5.70) Hemoglobin 11.4 g/dL (13.0-17.5) Hematocrit 34.3 % (39.0-53.0) Mean Corpuscular Volume 95 fL (79-100) Mean Corpuscular Hemoglobin 32 pg (25-35) Mean Corpuscular Hemoglobin Concent 33 g/dL (31-37) Red Cell Distribution Width 13.8 % (11.5-14.5) Platelet Count 247 x10^3/uL (140-400) Neutrophils (%) (Auto) 85 % (31-73) Lymphocytes (%) (Auto) 9 % (24-48) Monocytes (%) (Auto) 4 % (0-9) Eosinophils (%) (Auto) 2 % (0-3) Basophils (%) (Auto) 0 % (0-3) Neutrophils # (Auto) 10.8 x10^3/uL (1.8-7.7) Lymphocytes # (Auto) 1.1 x10^3/uL (1.0-4.8) Monocytes # (Auto) 0.5 x10^3/uL (0.0-1.1) Eosinophils # (Auto) 0.3 x10^3/uL (0.0-0.7) Basophils # (Auto) 0.0 x10^3/uL (0.0-0.2) Sodium Level 138 mmol/L (136-145) Potassium Level 3.7 mmol/L (3.5-5.1) Chloride Level 100 mmol/L (98-107) Carbon Dioxide Level 26 mmol/L (21-32) Anion Gap 12 (6-14) Blood Urea Nitrogen 72 mg/dL (8-26) Creatinine 3.7 mg/dL (0.7-1.3) Estimated GFR (Cockcroft-Gault) 16.5 Glucose Level 85 mg/dL (70-99) Calcium Level 8.2 mg/dL (8.5-10.1) Phosphorus Level 5.4 mg/dL (2.6-4.7) Albumin 2.1 g/dL (3.4-5.0) O2 Saturation 97 % (92-99) Arterial Blood pH 7.42 (7.35-7.45) Arterial Blood pCO2 at Patient Temp 35 mmHg (35-46) Arterial Blood pO2 at Patient Temp 97 mmHg (65-108) Arterial Blood HCO3 22 mmol/L (21-28) Arterial Blood Base Excess -2 mmol/L (-3-3) FiO2 40 Laboratory Tests Test 08/03/19 16:21 08/04/19 05:30 08/04/19 07:20 Heparin Anti-Xa Act, Unfractionated 0.40 IU/mL (0.30-0.70) White Blood Count 12.8 x10^3/uL (4.0-11.0) Red Blood Count 3.62 x10^6/uL (4.30-5.70) Hemoglobin 11.4 g/dL (13.0-17.5) Hematocrit 34.3 % (39.0-53.0) Mean Corpuscular Volume 95 fL (79-100) Mean Corpuscular Hemoglobin 32 pg (25-35) Mean Corpuscular Hemoglobin Concent 33 g/dL (31-37) Red Cell Distribution Width 13.8 % (11.5-14.5) Platelet Count 247 x10^3/uL (140-400) Neutrophils (%) (Auto) 85 % (31-73) Lymphocytes (%) (Auto) 9 % (24-48) Monocytes (%) (Auto) 4 % (0-9) Eosinophils (%) (Auto) 2 % (0-3) Basophils (%) (Auto) 0 % (0-3) Neutrophils # (Auto) 10.8 x10^3/uL (1.8-7.7) Lymphocytes # (Auto) 1.1 x10^3/uL (1.0-4.8) Monocytes # (Auto) 0.5 x10^3/uL (0.0-1.1) Eosinophils # (Auto) 0.3 x10^3/uL (0.0-0.7) Basophils # (Auto) 0.0 x10^3/uL (0.0-0.2) Sodium Level 138 mmol/L (136-145) Potassium Level 3.7 mmol/L (3.5-5.1) Chloride Level 100 mmol/L (98-107) Carbon Dioxide Level 26 mmol/L (21-32) Anion Gap 12 (6-14) Blood Urea Nitrogen 72 mg/dL (8-26) Creatinine 3.7 mg/dL (0.7-1.3) Estimated GFR (Cockcroft-Gault) 16.5 Glucose Level 85 mg/dL (70-99) Calcium Level 8.2 mg/dL (8.5-10.1) Phosphorus Level 5.4 mg/dL (2.6-4.7) Albumin 2.1 g/dL (3.4-5.0) O2 Saturation 97 % (92-99) Arterial Blood pH 7.42 (7.35-7.45) Arterial Blood pCO2 at Patient Temp 35 mmHg (35-46) Arterial Blood pO2 at Patient Temp 97 mmHg (65-108) Arterial Blood HCO3 22 mmol/L (21-28) Arterial Blood Base Excess -2 mmol/L (-3-3) FiO2 40 Medications Active Scripts Medications Dose Route/Sig Max Daily Dose Days Date Category Proair Hfa (Albuterol Sulfate) 8.5 Gm Hfa.aer.ad 2 Puff IH PRN Q4-6HRS PRN 21 07/25/19 Rx Tessalon Perle (Benzonatate) 100 Mg Capsule 1 Cap PO TID 07/25/19 Rx Prednisone 50 Mg Tablet 1 Tab PO DAILY 07/25/19 Rx Cyclobenzaprine Hcl 5 Mg Tablet 1 Tab PO TID 03/21/17 Rx Ibuprofen 800 Mg Tablet 800 Mg PO Q6-8HRS 03/21/17 Rx Zofran Odt (Ondansetron) 4 Mg Tab.rapdis 1 Tab SL Q8HRS 01/07/17 Rx Ultram (Tramadol Hcl) 50 Mg Tablet 1 Tab PO Q6HRS 01/29/16 Rx Impression . IMPRESSION: 1. Acute hypoxemic respiratory failure. MULTIFACTORIAL 2. Sepsis. 3. Pneumonia, suspect gram-negative, possibly gram-positive. 4. Influenza A. 5. New onset atrial fibrillation. 6. Peripheral vascular disease with possible peripheral emboli. 7. Metabolic acidosis. 8. Acute renal failure. 9. Severe protein malnutrition, present upon admission. 10. Elevated total bilirubin. ID3/1 Assessment Septic shock procalcitonin 25.26 GPC in chains/pairs bacteremia, (4 of 4 bottles), 07/30 ? source. -Repeat BC neg to date. TTE (07/31) no evidence veg Influenza A, respiratory tract infection. Acute hypoxic respiratory failure with pneumonia, status post intubation. 07/31. GPC & GPR on gram stain. culture in process CXR Impression: 1. Bilateral interstitial and alveolar opacities, increased within the left mid and lower lung. 2. Small bilateral pleural effusions, unchanged. DR DE ANDA NOTE IMPRESSION: 1. Ischemic skin changes to his right and left foot, worse in the right foot compared to the left with early gangrene despite adequate circulation. 2. Respiratory failure. 3. Confusion at presentation and he has been homeless with no medical care. PLAN: The patient has ischemic type changes in his right and left foot. The right foot is significantly worse than the left. There is mottling, demarcation and signs of early gangrene in his right foot. His left foot has mottling, but no sandy gangrene at this point. He does have good circulation in his legs with dopplerable pulses in both of his feet and duplex scan of the right leg shows patency of his vessels. No arterial intervention is needed at this point. I do recommend continuing his heparin drip and warming his feet and lower legs. He may end up requiring amputation of his feet in the future, but no urgent surgical intervention is needed at this point. We will continue to monitor. Plan . AC MODE WILL CONTINUE SUPPORT HD ANTI BX PER ID CXR REVIEWED SURGERY PLANNED ONCE CONSENT DONE IV HEPARIN ANTI BX ABG NOTED IENZ BARRIOS MD Aug 04, 2019 11:27
[2019-08-04] MEDS: ANTI-COAG MONITOR BY PHARMACY. MC PRN (15:55)
[2019-08-04] MEDS: FAMOTIDINE 20 MG/2 ML VIAL IVP SCH (21:01)
[2019-08-05] VITALS (23 sets, daily range): BP systolic 116–171; BP diastolic 31–77
[2019-08-05] MEDS: IPRATRPIUM/ALBUTEROL 0.5/2.5MG 3 ML NEBU. NEB SCH ×5 (02:57→20:00)
[2019-08-05] MEDS: MIDAZOLAM HCL 50 MG in IV NORMAL SALINE 50ML 50 ML IV PRN ×3 (03:56→21:13)
[2019-08-05 05:46] LABS: BASO # 0.1 x10^3/uL (0.0-0.2); BASO % 1 % (0-3); EOS # 0.3 x10^3/uL (0.0-0.7); EOS % 3 % (0-3); HEMATOCRIT 33.7 % (39.0-53.0); HEMOGLOBIN 11.4 g/dL (13.0-17.5); LYMPH # 1.4 x10^3/uL (1.0-4.8); LYMPH % 12 % (24-48); MEAN CORPUSCULAR HEMOGLOBIN 32 pg (25-35); MEAN CORPUSCULAR HGB CONC 34 g/dL (31-37); MEAN CORPUSCULAR VOLUME 96 fL (79-100); MONO # 0.5 x10^3/uL (0.0-1.1); MONO % 4 % (0-9); NEUT # 9.4 x10^3/uL (1.8-7.7); NEUT % 81 % (31-73); PLATELET COUNT 254 x10^3/uL (140-400); RED BLOOD COUNT 3.53 x10^6/uL (4.30-5.70); RED CELL DISTRIBUTION WIDTH 13.9 % (11.5-14.5); WHITE BLOOD COUNT 11.7 x10^3/uL (4.0-11.0)
[2019-08-05 05:53] LABS: ALBUMIN 2.1 g/dL (3.4-5.0); ALBUMIN/GLOBULIN RATIO 0.5 (1.0-1.7); CALCIUM 8.2 mg/dL (8.5-10.1); CREATININE 3.5 mg/dL (0.7-1.3); GFR 17.6; POTASSIUM 3.8 mmol/L (3.5-5.1); TOTAL BILIRUBIN 1.5 mg/dL (0.2-1.0); TOTAL PROTEIN 6.4 g/dL (6.4-8.2)
--- NOTE | 2019-08-05 07:49 | RAD ---
Single view of the chest. 08/05/2019 9:00 AM Indication: Respiratory failure Comparison: Chest radiograph, yesterday Findings: Support lines and tubes including endotracheal tube, enteric tube, right internal jugular central line, and right internal jugular temporary dialysis catheter are stable. No pneumothorax. There are likely small layering pleural effusions bilaterally. Mild central vascular congestion and interstitial edema are similar. The overall appearance is similar to yesterday's exam. No acute osseous changes noted in the interim. IMPRESSION: 1. Stable support lines and tubes 2. Small layering pleural effusions, similar to yesterday's exam 3. Central vascular congestion and interstitial thickening, likely edema, similar to yesterday's exam. Electronically signed by: Elvin Vega MD (08/05/2019 7:46 AM) [id number]
--- NOTE | 2019-08-05 08:04 | PDOC ---
Infectious Disease Note Subjective Subjective Orally intubated/vent and sedated FiO2 40% ROS ROS unable to obtain Vital Sign Vital Signs Vital Signs Date Time Temp Pulse Resp B/P (MAP) Pulse Ox O2 Delivery O2 Flow Rate FiO2 08/05/19 07:00 82 29 141/68 (92) 98 Ventilator 08/05/19 04:00 98.8 98.8 08/04/19 23:10 80.0 Physical Exam PHYSICAL EXAM GENERAL: Sedated, orally intubated/vent HEENT: Pupils equal, ETT and OGT in place. NECK: Supple. LUNGS: Diminished aeration bases HEART: S1, S2, irregular rhythm. ABDOMEN: Obese, soft, mildly distended : Valladares in place, 1 - 2 + scrotal swelling, erythema, EXTREMITIES: Ischemic changes right foot with gangrene toe; Left foot pink. Rooke boots bilaterally DERMATOLOGIC: No generalized rash. NEUROLOGIC: Sedated and intubated. RIJ without signs of complications . R HD cath (08/02) PIVs Labs Lab Laboratory Tests Test 08/04/19 11:16 08/05/19 05:00 Heparin Anti-Xa Act, Unfractionated 1.04 IU/mL (0.30-0.70) 0.42 IU/mL (0.30-0.70) White Blood Count 11.7 x10^3/uL (4.0-11.0) Red Blood Count 3.53 x10^6/uL (4.30-5.70) Hemoglobin 11.4 g/dL (13.0-17.5) Hematocrit 33.7 % (39.0-53.0) Mean Corpuscular Volume 96 fL (79-100) Mean Corpuscular Hemoglobin 32 pg (25-35) Mean Corpuscular Hemoglobin Concent 34 g/dL (31-37) Red Cell Distribution Width 13.9 % (11.5-14.5) Platelet Count 254 x10^3/uL (140-400) Neutrophils (%) (Auto) 81 % (31-73) Lymphocytes (%) (Auto) 12 % (24-48) Monocytes (%) (Auto) 4 % (0-9) Eosinophils (%) (Auto) 3 % (0-3) Basophils (%) (Auto) 1 % (0-3) Neutrophils # (Auto) 9.4 x10^3/uL (1.8-7.7) Lymphocytes # (Auto) 1.4 x10^3/uL (1.0-4.8) Monocytes # (Auto) 0.5 x10^3/uL (0.0-1.1) Eosinophils # (Auto) 0.3 x10^3/uL (0.0-0.7) Basophils # (Auto) 0.1 x10^3/uL (0.0-0.2) Sodium Level 139 mmol/L (136-145) Potassium Level 3.8 mmol/L (3.5-5.1) Chloride Level 102 mmol/L (98-107) Carbon Dioxide Level 27 mmol/L (21-32) Anion Gap 10 (6-14) Blood Urea Nitrogen 80 mg/dL (8-26) Creatinine 3.5 mg/dL (0.7-1.3) Estimated GFR (Cockcroft-Gault) 17.6 BUN/Creatinine Ratio 23 (6-20) Glucose Level 96 mg/dL (70-99) Calcium Level 8.2 mg/dL (8.5-10.1) Total Bilirubin 1.5 mg/dL (0.2-1.0) Aspartate Amino Transf (AST/SGOT) 59 U/L (15-37) Alanine Aminotransferase (ALT/SGPT) 13 U/L (16-63) Alkaline Phosphatase 80 U/L (46-116) Total Protein 6.4 g/dL (6.4-8.2) Albumin 2.1 g/dL (3.4-5.0) Albumin/Globulin Ratio 0.5 (1.0-1.7) Micro Streptococcus pneumoniae Mucoid strain Performed at: DA - [facility] [address] [id number] [employer]er: MILADY Wang MD, Phone: [phone] Streptococcus pneumoniae Mucoid strain This nonmeningitis penicillin-susceptible pneumococcal isolate can be considered susceptible to the oral agents amoxicillin, amoxicillin-clavulanic acid, ampicillin, cefaclor, cefdinir, cefditoren, cefpodoxime, cefprozil, cefuroxime, and loracarbef, and to the parenteral agents ampicillin, ampicillin-sulbactam, cefepime, cefotaxime, ceftizoxime, ceftriaxone, cefuroxime, ertapenem, imipenem, and meropenem, for approved indications. Doses of IV penicillin of at least 2 million units every 4 hours in adults with normal renal function (12 million units per day) are effective in treating nonmeningeal pneumococcal infections due to strains that are susceptible to penicillin. (CLSI 2011) Use of cefotaxime or ceftriaxone in meningitis requires therapy with maximum doses. (CLSI) For cefotaxime, use of interpretive criteria for nonmeningitis requires doses appropriate for serious pneumococcal infections (e.g., at least 1 g (adults) or 50 mg/kg (children) every eight hours or more frequently). (CLSI) Use of penicillin in meningitis requires therapy with maximum doses of IV penicillin (e.g. at least 3 million units every 4 hours in adults with normal renal function). (CLSI) CONTINUED ON NEXT PAGE RUN DATE: 08/03/19 [facility] [employer] [facility] *LIVE* PAGE 2 RUN TIME: 1810 Specimen Inquiry SPEC: [id number] PATIENT: DEANDRE WARREN [id number] (Continued) -- Procedure Result ANTIMICROBIAL SUSCEPTIBILITY Final Comment S = Susceptible; I = Intermediate; R = Resistant P = Positive; N = Negative MICS are expressed in micrograms per mL Antibiotic RSLT#1 RSLT#2 RSLT#3 RSLT#4 Cefotaxime (meningitis) S<=0.25 Cefotaxime (non-meningitis) S<=0.25 Ceftriaxone (meningitis) S<=0.25 Ceftriaxone (non-meningitis) S<=0.25 Erythromycin S<=0.06 Levofloxacin S =1 Meropenem S<=0.06 Penicillin (oral pen V) S<=0.03 Penicillin IV (meningitis) S<=0.03 Penicillin IV (non-mening) S<=0.03 Tetracycline R> 4 Trimethoprim/Sulfa S<=0.25 Vancomycin S =0.5 Microbiology 08/02/19 Blood Culture - Preliminary, Resulted NO GROWTH AFTER 1 DAY 07/31/19 - Final, Resulted 07/31/19 - Final, Resulted 07/31/19 - Final, Resulted 07/31/19 - Preliminary, Resulted 07/31/19 - Preliminary, Resulted 07/31/19 - Preliminary, Resulted 07/31/19 Gram Stain Evaluation - Final, Resulted 07/31/19 Sputum Culture, Resulted Pending 07/30/19 Urine Culture - Final, Complete 07/30/19 Urine Culture Result 1 (SONIA) - Final, Complete Objective Assessment Septic shock procalcitonin 25.26 Strep pneumo sepsis (4 of 4 bottles), 07/30 ? source.- ?lung with strep pneumo ? foot -Repeat BC and 08/01 neg to date. TTE (07/31) no evidence veg Leukocytosis - better Influenza A 07/30 , respiratory tract infection. Acute hypoxic respiratory failure with pneumonia, status post intubation. 07/31. strep pneumo & GPR - no identified on gram stain/mold. culture in process Severe peripheral vascular disease, right foot ischemia/gangrene Encephalopathy.- sedated now Lactic acidosis. Acute kidney injury Hyperbilirubinemia. LFT elevation. High troponin. Atrial fibrillation with rapid ventricular response, on amiodarone. Homelessness. Groin dermatitis. Tinea Plan Plan of Care Off Daptomycin D/c Zyvox today Cont Merrem, and micafungin Tamiflu renally dosed Follow up labs and cultures Maintain aspiration precautions Droplet precautions can be discontinued Surgery - not performed as unable to get consent per nursing Critically ill Prognosis poor D/w nursing MATTHEW SEPULVEDA MD Aug 05, 2019 08:04
[2019-08-05 08:10] LABS: BASE EXCESS ABG 1 mmol/L (-3-3); HCO3 ABG 26 mmol/L (21-28); PCO2 ABG 45 mmHg (35-46); PO2 ABG 102 mmHg (65-108); SAT O2 ABG 97 % (92-99)
[2019-08-05 08:11] LABS: FIO2 ABG 40
--- NOTE | 2019-08-05 08:22 | PDOC ---
SUBJECTIVE ROS Intubated, OBJECTIVE Vital Signs Vital Signs Date Time Temp Pulse Resp B/P (MAP) Pulse Ox O2 Delivery O2 Flow Rate FiO2 08/05/19 07:00 82 29 141/68 (92) 98 Ventilator 08/05/19 04:00 98.8 98.8 08/04/19 23:10 80.0 I & 0 Intake and Output 08/05/19 07:00 Intake Total 2068 ml Output Total 1100 ml Balance 968 ml Intake IV Total 1768 ml Tube Feeding 300 ml Output Urine Total 1100 ml Gastric Drainage Total 0 ml PHYSICAL EXAM Physical Exam GENERAL: Sedated, orally intubated/vent HEENT: ETT and OGT in place. NECK: Supple. LUNGS: Diminished aeration bases HEART: S1, S2, irregular rhythm. ABDOMEN: Obese, soft, : Valladares in place, scrotal swelling, EXTREMITIES: Ischemic changes right foot with bullous lesion/gangrene; DERMATOLOGIC: No generalized rash. NEUROLOGIC: Sedated and intubated. DIAGNOSIS/ASSESSMENT Assessment & Plan ARF: Possible ATN: Patient remains oligo anuric at this time. Initiated on Hemodialysis 08/02 , improvement in uop,stable renal function, HD today , monitor for renal recovery Dialysis today , UF 3-4 as tolerated, Dw DRn Supportive care , avoid nephrotoxins , re-eval in am for [employer] HEAD Septic shock, GPC in chains/pairs bacteremia TTE (07/31) no evidence veg Rt 4th toe has black gangrene and an open wound on the lateral toe deep to the bone- vascular Recommends right 4th toe amputation Influenza A 07/30 , respiratory tract infection. Acute hypoxic respiratory failure with pneumonia, status post intubation. 07/31. strep pneumo Severe peripheral vascular disease, right foot ischemia/gangrene Encephalopathy.- sedated Lactic acidosis. Hyperbilirubinemia/LFT elevation. Atrial fibrillation with rapid ventricular response, on amiodarone. COMMENT/RELEVANT DATA Meds Current Medications Medications (Trade) Dose Ordered Sig/[place] Start Time Stop Time Status Last Admin Dose Admin Acetaminophen (Tylenol Supp) 650 mg 1X ONCE 07/30/19 20:15 07/30/19 20:16 DC 07/30/19 20:49 650 MG Acetaminophen (Tylenol) 650 mg PRN Q4HRS PRN 07/30/19 20:30 07/31/19 20:29 DC 07/31/19 12:49 650 MG Albumin Human 100 ml @ 100 mls/hr TID 07/31/19 14:30 08/02/19 09:59 DC 08/02/19 09:44 100 MLS/HR Albuterol Sulfate (Ventolin Neb Soln) 10 mg 1X ONCE 07/30/19 18:00 07/30/19 18:01 DC 07/30/19 18:00 10 MG Albuterol/ Ipratropium (Duoneb) 3 ml Q4HRS 07/31/19 04:00 08/05/19 02:57 3 ML Amiodarone HCl 150 mg/Dextrose 103 ml @ 618 mls/hr 1X ONCE 07/30/19 18:45 07/30/19 18:54 DC 07/30/19 20:07 618 MLS/HR Amiodarone HCl 450 mg/Dextrose 259 ml @ 0 mls/hr CONT PRN 07/30/19 18:45 07/30/19 20:21 33.3 MLS/HR Bisacodyl (Dulcolax Supp) 10 mg PRN DAILY PRN 07/31/19 15:00 Cefazolin Sodium 1 gm/Sodium Chloride 500 ml @ 500 mls/hr 1X ONCE 08/04/19 06:00 08/04/19 06:59 DC Chlorhexidine Gluconate (Peridex) 15 ml BID 07/30/19 21:00 08/04/19 21:01 15 ML Daptomycin 490 mg/ Sodium Chloride 50 ml @ 100 mls/hr Q48H 08/01/19 10:00 08/04/19 07:59 DC 08/03/19 11:19 100 MLS/HR Digoxin (Lanoxin) 250 mcg 1X ONCE 07/31/19 00:30 07/31/19 00:31 DC 07/31/19 00:12 250 MCG Diltiazem HCl (Cardizem Iv Push) 10 mg 1X ONCE 07/30/19 18:00 07/30/19 18:01 DC 07/30/19 18:01 10 MG Diltiazem HCl 125 mg/Sodium Chloride 125 ml @ 5 mls/hr CONT PRN 07/31/19 01:00 08/01/19 03:03 5 MLS/HR Dobutamine HCl/ Dextrose 250 ml @ 0 mls/hr CONT PRN 07/31/19 15:00 UNV Etomidate (Amidate) 20 mg 1X ONCE 07/30/19 23:45 07/30/19 23:46 DC 07/30/19 19:27 20 MG Famotidine (Pepcid Vial) 20 mg BID 07/31/19 21:00 UNV Fentanyl Citrate (Fentanyl 2ml Vial) 50 mcg PRN Q5MIN PRN 08/04/19 07:00 08/05/19 06:59 DC Furosemide (Lasix) 40 mg 1X ONCE 08/01/19 22:30 08/01/19 22:31 DC 08/01/19 22:14 40 MG Heparin Sodium (Porcine) (Heparin Sodium) 2,200 unit PRN Q6HRS PRN 07/30/19 20:45 08/01/19 15:42 2,200 UNIT Heparin Sodium/ Dextrose 250 ml @ 0 mls/hr CONT PRN 07/31/19 00:00 UNV Info (Anti-Coagulation Monitoring By Pharmacy) 1 each PRN DAILY PRN 07/30/19 21:00 08/04/19 15:55 1 EACH Info (PHARMACY MONITORING -- do not chart) 1 each PRN DAILY PRN 08/03/19 13:45 Lidocaine HCl (Buffered Lidocaine 1%) 3 ml 1X ONCE 08/03/19 09:30 08/03/19 09:31 DC 08/03/19 09:28 3 ML Linezolid/Dextrose 300 ml @ 300 mls/hr Q12HR 07/31/19 09:00 08/05/19 08:02 DC 08/04/19 21:02 300 MLS/HR Lorazepam (Ativan Inj) 2 mg STK-MED ONCE 07/30/19 18:14 07/30/19 18:14 DC Meropenem 1 gm/ Sodium Chloride 100 ml @ 200 mls/hr Q12HR 07/31/19 09:00 08/04/19 21:02 200 MLS/HR Micafungin Sodium 100 mg/Dextrose 100 ml @ 100 mls/hr Q24H 07/31/19 08:00 08/04/19 08:32 100 MLS/HR Midazolam HCl 50 mg/Sodium Chloride 50 ml @ 0 mls/hr CONT PRN 07/31/19 00:15 08/05/19 03:56 5 MLS/HR Morphine Sulfate (Morphine Sulfate) 4 mg PRN Q1HR PRN 07/30/19 19:15 07/31/19 00:11 DC Multivitamins/ Minerals Therapeutic (Centrum Multivit-Mineral Liq) 5 ml DAILY 08/03/19 12:00 08/04/19 08:34 5 ML Norepinephrine Bitartrate 8 mg/ Dextrose 258 ml @ 0 mls/hr CONT PRN 07/30/19 19:00 07/31/19 08:04 DC Ondansetron HCl (Zofran) 4 mg PRN Q6HRS PRN 08/04/19 07:00 08/05/19 06:59 DC Oseltamivir Phosphate (Tamiflu) 30 mg BID 07/31/19 09:00 08/05/19 08:59 08/04/19 21:02 30 MG Piperacillin Sod/ Tazobactam Sod 4.5 gm/Sodium Chloride 100 ml @ 200 mls/hr 1X ONCE 07/30/19 19:00 07/31/19 08:04 DC 07/30/19 19:06 200 MLS/HR Potassium Bicarbonate (Potassium Effervescent Tablet) 20 meq 1X ONCE 08/01/19 22:30 08/01/19 22:31 DC 08/01/19 22:14 20 MEQ Potassium Chloride/Water 100 ml @ 100 mls/hr Q1H 07/30/19 19:30 07/30/19 21:29 DC 07/30/19 21:31 100 MLS/HR Prochlorperazine (Compazine) 25 mg PRN Q12HR PRN 07/31/19 15:00 Prochlorperazine Edisylate (Compazine) 5 mg PACU PRN PRN 08/04/19 07:00 08/05/19 06:59 DC Ringer's Solution 1,000 ml @ 30 mls/hr Q24H 08/04/19 07:00 08/04/19 18:59 DC Rocuronium [place] (Zemuron) 50 mg 1X ONCE 07/30/19 23:45 07/30/19 23:46 DC 07/30/19 19:28 50 MG Sodium Bicarbonate 100 meq/Dextrose 1,100 ml @ 75 mls/hr 1X ONCE 07/30/19 23:00 07/31/19 13:39 DC 07/31/19 01:54 75 MLS/HR Sodium Chloride 1,000 ml @ 400 mls/hr Q2H30M PRN 08/03/19 13:31 08/04/19 01:30 DC Sodium Chloride (Normal Saline Flush) 3 ml QSHIFT PRN 07/31/19 15:00 Thiamine HCl 100 mg/Dextrose 51 ml @ 102 mls/hr DAILY 07/31/19 17:00 08/04/19 08:33 102 MLS/HR Vancomycin HCl (Vanco Per Pharmacy) 1 each PRN DAILY PRN 07/31/19 02:30 07/31/19 08:06 DC 07/31/19 03:30 1 EACH Vancomycin HCl (Vancomycin Trough Level) 1 each 1X ONCE 08/01/19 07:30 08/01/19 07:31 Cancel Vancomycin HCl 1.25 gm/Sodium Chloride 250 ml @ 167 mls/hr Q12H 07/31/19 08:00 07/31/19 08:06 DC 07/31/19 07:57 167 MLS/HR Vancomycin HCl 2 gm/Sodium Chloride 500 ml @ 250 mls/hr 1X ONCE 07/30/19 19:15 07/30/19 21:14 DC 07/30/19 20:15 250 MLS/HR Vitamin A/Vitamin D (Vitamin A & D Ointment) 1 [place] PRN Q1HR PRN 07/31/19 16:45 08/03/19 08:14 1 [place] Lab Laboratory Tests Test 08/04/19 11:16 08/05/19 05:00 08/05/19 08:00 Heparin Anti-Xa Act, Unfractionated 1.04 IU/mL (0.30-0.70) 0.42 IU/mL (0.30-0.70) White Blood Count 11.7 x10^3/uL (4.0-11.0) Red Blood Count 3.53 x10^6/uL (4.30-5.70) Hemoglobin 11.4 g/dL (13.0-17.5) Hematocrit 33.7 % (39.0-53.0) Mean Corpuscular Volume 96 fL (79-100) Mean Corpuscular Hemoglobin 32 pg (25-35) Mean Corpuscular Hemoglobin Concent 34 g/dL (31-37) Red Cell Distribution Width 13.9 % (11.5-14.5) Platelet Count 254 x10^3/uL (140-400) Neutrophils (%) (Auto) 81 % (31-73) Lymphocytes (%) (Auto) 12 % (24-48) Monocytes (%) (Auto) 4 % (0-9) Eosinophils (%) (Auto) 3 % (0-3) Basophils (%) (Auto) 1 % (0-3) Neutrophils # (Auto) 9.4 x10^3/uL (1.8-7.7) Lymphocytes # (Auto) 1.4 x10^3/uL (1.0-4.8) Monocytes # (Auto) 0.5 x10^3/uL (0.0-1.1) Eosinophils # (Auto) 0.3 x10^3/uL (0.0-0.7) Basophils # (Auto) 0.1 x10^3/uL (0.0-0.2) Sodium Level 139 mmol/L (136-145) Potassium Level 3.8 mmol/L (3.5-5.1) Chloride Level 102 mmol/L (98-107) Carbon Dioxide Level 27 mmol/L (21-32) Anion Gap 10 (6-14) Blood Urea Nitrogen 80 mg/dL (8-26) Creatinine 3.5 mg/dL (0.7-1.3) Estimated GFR (Cockcroft-Gault) 17.6 BUN/Creatinine Ratio 23 (6-20) Glucose Level 96 mg/dL (70-99) Calcium Level 8.2 mg/dL (8.5-10.1) Total Bilirubin 1.5 mg/dL (0.2-1.0) Aspartate Amino Transf (AST/SGOT) 59 U/L (15-37) Alanine Aminotransferase (ALT/SGPT) 13 U/L (16-63) Alkaline Phosphatase 80 U/L (46-116) Total Protein 6.4 g/dL (6.4-8.2) Albumin 2.1 g/dL (3.4-5.0) Albumin/Globulin Ratio 0.5 (1.0-1.7) O2 Saturation 97 % (92-99) Arterial Blood pH 7.38 (7.35-7.45) Arterial Blood pCO2 at Patient Temp 45 mmHg (35-46) Arterial Blood pO2 at Patient Temp 102 mmHg (65-108) Arterial Blood HCO3 26 mmol/L (21-28) Arterial Blood Base Excess 1 mmol/L (-3-3) FiO2 40 Results All relevant outside records, renal labs, imaging studies, telemetry/EKG's were reviewed. JOSE DAVID ANTON MD Aug 05, 2019 08:22
--- NOTE | 2019-08-05 09:32 | PDOC ---
Provider Note Provider Note Vascular S: Sedated on Vent O: Sedated VSS, afebrile bilateral lower extremities warm and pink right foot with open blister on the dorsal, underlying tissue is pink, the right 4th toe has black gangrene and an open wound on the lateral toe deep to the bone left foot is pink with no tissue breakdown WBC 11.7 A/P: Adequate circulation to bilateral feet, recommend right 4th toe amputation for the gangrene, continue wound care to the open wounds. Rooke boots. Awaiting consent from family. Will continue to monitor for now. MARGY LEE APRN Aug 05, 2019 09:32
--- NOTE | 2019-08-05 09:59 | PDOC ---
PULMONARY PROGRESS NOTES Subjective SEDATED ON AC MODE IV HEPARIN Vitals Vital Signs Date Time Temp Pulse Resp B/P (MAP) Pulse Ox O2 Delivery O2 Flow Rate FiO2 08/05/19 08:00 98 Ventilator 08/05/19 07:00 82 29 141/68 (92) 08/05/19 04:00 98.8 98.8 08/04/19 23:10 80.0 Lungs: Clear Cardiovascular: S1, S2 Abdomen: Soft Extremities: Other (PVD) Skin: Warm Labs Laboratory Tests Test 08/03/19 16:21 08/04/19 05:30 08/04/19 07:20 08/04/19 11:16 Heparin Anti-Xa Act, Unfractionated 0.40 IU/mL (0.30-0.70) 1.04 IU/mL (0.30-0.70) White Blood Count 12.8 x10^3/uL (4.0-11.0) Red Blood Count 3.62 x10^6/uL (4.30-5.70) Hemoglobin 11.4 g/dL (13.0-17.5) Hematocrit 34.3 % (39.0-53.0) Mean Corpuscular Volume 95 fL (79-100) Mean Corpuscular Hemoglobin 32 pg (25-35) Mean Corpuscular Hemoglobin Concent 33 g/dL (31-37) Red Cell Distribution Width 13.8 % (11.5-14.5) Platelet Count 247 x10^3/uL (140-400) Neutrophils (%) (Auto) 85 % (31-73) Lymphocytes (%) (Auto) 9 % (24-48) Monocytes (%) (Auto) 4 % (0-9) Eosinophils (%) (Auto) 2 % (0-3) Basophils (%) (Auto) 0 % (0-3) Neutrophils # (Auto) 10.8 x10^3/uL (1.8-7.7) Lymphocytes # (Auto) 1.1 x10^3/uL (1.0-4.8) Monocytes # (Auto) 0.5 x10^3/uL (0.0-1.1) Eosinophils # (Auto) 0.3 x10^3/uL (0.0-0.7) Basophils # (Auto) 0.0 x10^3/uL (0.0-0.2) Sodium Level 138 mmol/L (136-145) Potassium Level 3.7 mmol/L (3.5-5.1) Chloride Level 100 mmol/L (98-107) Carbon Dioxide Level 26 mmol/L (21-32) Anion Gap 12 (6-14) Blood Urea Nitrogen 72 mg/dL (8-26) Creatinine 3.7 mg/dL (0.7-1.3) Estimated GFR (Cockcroft-Gault) 16.5 Glucose Level 85 mg/dL (70-99) Calcium Level 8.2 mg/dL (8.5-10.1) Phosphorus Level 5.4 mg/dL (2.6-4.7) Albumin 2.1 g/dL (3.4-5.0) O2 Saturation 97 % (92-99) Arterial Blood pH 7.42 (7.35-7.45) Arterial Blood pCO2 at Patient Temp 35 mmHg (35-46) Arterial Blood pO2 at Patient Temp 97 mmHg (65-108) Arterial Blood HCO3 22 mmol/L (21-28) Arterial Blood Base Excess -2 mmol/L (-3-3) FiO2 40 Test 08/05/19 05:00 08/05/19 08:00 White Blood Count 11.7 x10^3/uL (4.0-11.0) Red Blood Count 3.53 x10^6/uL (4.30-5.70) Hemoglobin 11.4 g/dL (13.0-17.5) Hematocrit 33.7 % (39.0-53.0) Mean Corpuscular Volume 96 fL (79-100) Mean Corpuscular Hemoglobin 32 pg (25-35) Mean Corpuscular Hemoglobin Concent 34 g/dL (31-37) Red Cell Distribution Width 13.9 % (11.5-14.5) Platelet Count 254 x10^3/uL (140-400) Neutrophils (%) (Auto) 81 % (31-73) Lymphocytes (%) (Auto) 12 % (24-48) Monocytes (%) (Auto) 4 % (0-9) Eosinophils (%) (Auto) 3 % (0-3) Basophils (%) (Auto) 1 % (0-3) Neutrophils # (Auto) 9.4 x10^3/uL (1.8-7.7) Lymphocytes # (Auto) 1.4 x10^3/uL (1.0-4.8) Monocytes # (Auto) 0.5 x10^3/uL (0.0-1.1) Eosinophils # (Auto) 0.3 x10^3/uL (0.0-0.7) Basophils # (Auto) 0.1 x10^3/uL (0.0-0.2) Heparin Anti-Xa Act, Unfractionated 0.42 IU/mL (0.30-0.70) Sodium Level 139 mmol/L (136-145) Potassium Level 3.8 mmol/L (3.5-5.1) Chloride Level 102 mmol/L (98-107) Carbon Dioxide Level 27 mmol/L (21-32) Anion Gap 10 (6-14) Blood Urea Nitrogen 80 mg/dL (8-26) Creatinine 3.5 mg/dL (0.7-1.3) Estimated GFR (Cockcroft-Gault) 17.6 BUN/Creatinine Ratio 23 (6-20) Glucose Level 96 mg/dL (70-99) Calcium Level 8.2 mg/dL (8.5-10.1) Total Bilirubin 1.5 mg/dL (0.2-1.0) Aspartate Amino Transf (AST/SGOT) 59 U/L (15-37) Alanine Aminotransferase (ALT/SGPT) 13 U/L (16-63) Alkaline Phosphatase 80 U/L (46-116) Total Protein 6.4 g/dL (6.4-8.2) Albumin 2.1 g/dL (3.4-5.0) Albumin/Globulin Ratio 0.5 (1.0-1.7) O2 Saturation 97 % (92-99) Arterial Blood pH 7.38 (7.35-7.45) Arterial Blood pCO2 at Patient Temp 45 mmHg (35-46) Arterial Blood pO2 at Patient Temp 102 mmHg (65-108) Arterial Blood HCO3 26 mmol/L (21-28) Arterial Blood Base Excess 1 mmol/L (-3-3) FiO2 40 Laboratory Tests Test 08/04/19 11:16 08/05/19 05:00 08/05/19 08:00 Heparin Anti-Xa Act, Unfractionated 1.04 IU/mL (0.30-0.70) 0.42 IU/mL (0.30-0.70) White Blood Count 11.7 x10^3/uL (4.0-11.0) Red Blood Count 3.53 x10^6/uL (4.30-5.70) Hemoglobin 11.4 g/dL (13.0-17.5) Hematocrit 33.7 % (39.0-53.0) Mean Corpuscular Volume 96 fL (79-100) Mean Corpuscular Hemoglobin 32 pg (25-35) Mean Corpuscular Hemoglobin Concent 34 g/dL (31-37) Red Cell Distribution Width 13.9 % (11.5-14.5) Platelet Count 254 x10^3/uL (140-400) Neutrophils (%) (Auto) 81 % (31-73) Lymphocytes (%) (Auto) 12 % (24-48) Monocytes (%) (Auto) 4 % (0-9) Eosinophils (%) (Auto) 3 % (0-3) Basophils (%) (Auto) 1 % (0-3) Neutrophils # (Auto) 9.4 x10^3/uL (1.8-7.7) Lymphocytes # (Auto) 1.4 x10^3/uL (1.0-4.8) Monocytes # (Auto) 0.5 x10^3/uL (0.0-1.1) Eosinophils # (Auto) 0.3 x10^3/uL (0.0-0.7) Basophils # (Auto) 0.1 x10^3/uL (0.0-0.2) Sodium Level 139 mmol/L (136-145) Potassium Level 3.8 mmol/L (3.5-5.1) Chloride Level 102 mmol/L (98-107) Carbon Dioxide Level 27 mmol/L (21-32) Anion Gap 10 (6-14) Blood Urea Nitrogen 80 mg/dL (8-26) Creatinine 3.5 mg/dL (0.7-1.3) Estimated GFR (Cockcroft-Gault) 17.6 BUN/Creatinine Ratio 23 (6-20) Glucose Level 96 mg/dL (70-99) Calcium Level 8.2 mg/dL (8.5-10.1) Total Bilirubin 1.5 mg/dL (0.2-1.0) Aspartate Amino Transf (AST/SGOT) 59 U/L (15-37) Alanine Aminotransferase (ALT/SGPT) 13 U/L (16-63) Alkaline Phosphatase 80 U/L (46-116) Total Protein 6.4 g/dL (6.4-8.2) Albumin 2.1 g/dL (3.4-5.0) Albumin/Globulin Ratio 0.5 (1.0-1.7) O2 Saturation 97 % (92-99) Arterial Blood pH 7.38 (7.35-7.45) Arterial Blood pCO2 at Patient Temp 45 mmHg (35-46) Arterial Blood pO2 at Patient Temp 102 mmHg (65-108) Arterial Blood HCO3 26 mmol/L (21-28) Arterial Blood Base Excess 1 mmol/L (-3-3) FiO2 40 Medications Active Scripts Medications Dose Route/Sig Max Daily Dose Days Date Category Proair Hfa (Albuterol Sulfate) 8.5 Gm Hfa.aer.ad 2 Puff IH PRN Q4-6HRS PRN 21 07/25/19 Rx Tessalon Perle (Benzonatate) 100 Mg Capsule 1 Cap PO TID 07/25/19 Rx Prednisone 50 Mg Tablet 1 Tab PO DAILY 07/25/19 Rx Cyclobenzaprine Hcl 5 Mg Tablet 1 Tab PO TID 03/21/17 Rx Ibuprofen 800 Mg Tablet 800 Mg PO Q6-8HRS 03/21/17 Rx Zofran Odt (Ondansetron) 4 Mg Tab.rapdis 1 Tab SL Q8HRS 01/07/17 Rx Ultram (Tramadol Hcl) 50 Mg Tablet 1 Tab PO Q6HRS 01/29/16 Rx Comments CXR 3/4 CHF/ RIGHT EFFUSION Impression . IMPRESSION: 1. Acute hypoxemic respiratory failure. MULTIFACTORIAL 2. Sepsis. 3. Pneumonia, suspect gram-negative, possibly gram-positive. 4. Influenza A. 5. New onset atrial fibrillation. 6. Peripheral vascular disease with possible peripheral emboli. 7. Metabolic acidosis. 8. Acute renal failure. 9. Severe protein malnutrition, present upon admission. 10. Elevated total bilirubin. 11. Abnormal cxr/ CHF ID3/1 Assessment Septic shock procalcitonin 25.26 GPC in chains/pairs bacteremia, (4 of 4 bottles), 07/30 ? source. -Repeat BC neg to date. TTE (07/31) no evidence veg Influenza A, respiratory tract infection. Acute hypoxic respiratory failure with pneumonia, status post intubation. 07/31. GPC & GPR on gram stain. culture in process CXR Impression: 1. Bilateral interstitial and alveolar opacities, increased within the left mid and lower lung. 2. Small bilateral pleural effusions, unchanged. DR DE ANDA NOTE IMPRESSION: 1. Ischemic skin changes to his right and left foot, worse in the right foot compared to the left with early gangrene despite adequate circulation. 2. Respiratory failure. 3. Confusion at presentation and he has been homeless with no medical care. PLAN: The patient has ischemic type changes in his right and left foot. The right foot is significantly worse than the left. There is mottling, demarcation and signs of early gangrene in his right foot. His left foot has mottling, but no sandy gangrene at this point. He does have good circulation in his legs with dopplerable pulses in both of his feet and duplex scan of the right leg shows patency of his vessels. No arterial intervention is needed at this point. I do recommend continuing his heparin drip and warming his feet and lower legs. He may end up requiring amputation of his feet in the future, but no urgent surgical intervention is needed at this point. We will continue to monitor. Plan . AC MODE D/W RN. NO CONSENT AVAILABLE FOR SURGERY WILL TRY TO EXTUBATE AND GET CONSENT WILL CONTINUE SUPPORT HD/ UF TODAY D/W RENAL ANTI BX PER ID CXR REVIEWED SURGERY PLANNED ONCE CONSENT DONE IV HEPARIN ANTI BX ABG NOTED INEZ BARRIOS MD Aug 05, 2019 09:59
[2019-08-05] MEDS: MEROPENEM 1 GM in IV NORMAL SALINE 100ML 100 ML IV SCH ×2 (10:15→21:00)
[2019-08-05] MEDS: THIAMINE INJ 100 MG in IV DEXTROSE 5% 50 ML IV SCH (10:15)
[2019-08-05] MEDS: MULTIVITAMINS,THERAPEUTIC 5 ML ORAL LIQUID. PEG SCH (10:16)
[2019-08-05] MEDS: CHLORHEXIDINE 0.12% 15 ML MOUTHWASH. MM SCH ×2 (10:16→21:00)
[2019-08-05] MEDS: MICAFUNGIN 100 MG in IV DEXTROSE 5% 100ML 100 ML IV SCH (10:16)
--- NOTE | 2019-08-05 10:41 | PDOC ---
PROGRESS NOTES History of Present Illness History of Present Illness VTE Prophylaxis Ordered VTE Prophylaxis Devices: Contraindicated VTE Pharmacological Prophylaxi: Yes Assessment/Plan Assessment/Plan impression 1. ACUTE HYPOXIC RESPIRATORY FAILURE 2. INFLUENZA A 3. Sepsis 4, PNA (pneumonia) 5. Altered mental status 6. ischemic right 4th toe 7. SONIA 8. a fib rvr 9. severe sepsis 10. homeless, self neglect due to lack of funds 11. right foot with LARGE LATERAL bullous lesion/gangrene plan admit ICU BED CONSULT PULM CONSULT ID Daptomycin and Merrem and Tamiflu renally dosed Zyvox Micafungin, for groin dermatitis, // yeast. VENT SUPPORT CONSULT NEUROLOGY dvt prophylaxis vascular surgery FOLLOWING Nephrology consult cardiology consult cardizem drip Let the tissues demarcate and possibly areas heal. . Will continue heparin drip and Rooke boots. GUARDED PROGNOSIS 31 min cc time Vitals Vitals Vital Signs Date Time Temp Pulse Resp B/P (MAP) Pulse Ox O2 Delivery O2 Flow Rate FiO2 08/05/19 10:03 98 Ventilator 08/05/19 07:00 82 29 141/68 (92) 08/05/19 04:00 98.8 98.8 08/04/19 23:10 80.0 Physical Exam Physical Exam GENERAL: Sedated, orally intubated/vent HEENT: Pupils equal, ETT and OGT in place. NECK: Supple. LUNGS: Diminished aeration bases HEART: S1, S2, irregular rhythm. ABDOMEN: Obese, soft, mildly distended : Valladares in place, 1 - 2 + scrotal swelling, erythema, EXTREMITIES: Ischemic changes right foot with gangrene toe; Left foot pink. Rooke boots bilaterally DERMATOLOGIC: No generalized rash. NEUROLOGIC: Sedated and intubated. RIJ without signs of complications . R HD cath (08/02) PIVs General: Other (intubated) Heart: Other (irregular rhythm) Lungs: Clear Abdomen: Normal bowel sounds Extremities: No cyanosis, Other (ischemic right 4th toe) Skin: Other (right 4th toe lesion) Labs LABS Laboratory Tests Test 08/04/19 11:16 08/05/19 05:00 08/05/19 08:00 Heparin Anti-Xa Act, Unfractionated 1.04 IU/mL (0.30-0.70) 0.42 IU/mL (0.30-0.70) White Blood Count 11.7 x10^3/uL (4.0-11.0) Red Blood Count 3.53 x10^6/uL (4.30-5.70) Hemoglobin 11.4 g/dL (13.0-17.5) Hematocrit 33.7 % (39.0-53.0) Mean Corpuscular Volume 96 fL (79-100) Mean Corpuscular Hemoglobin 32 pg (25-35) Mean Corpuscular Hemoglobin Concent 34 g/dL (31-37) Red Cell Distribution Width 13.9 % (11.5-14.5) Platelet Count 254 x10^3/uL (140-400) Neutrophils (%) (Auto) 81 % (31-73) Lymphocytes (%) (Auto) 12 % (24-48) Monocytes (%) (Auto) 4 % (0-9) Eosinophils (%) (Auto) 3 % (0-3) Basophils (%) (Auto) 1 % (0-3) Neutrophils # (Auto) 9.4 x10^3/uL (1.8-7.7) Lymphocytes # (Auto) 1.4 x10^3/uL (1.0-4.8) Monocytes # (Auto) 0.5 x10^3/uL (0.0-1.1) Eosinophils # (Auto) 0.3 x10^3/uL (0.0-0.7) Basophils # (Auto) 0.1 x10^3/uL (0.0-0.2) Sodium Level 139 mmol/L (136-145) Potassium Level 3.8 mmol/L (3.5-5.1) Chloride Level 102 mmol/L (98-107) Carbon Dioxide Level 27 mmol/L (21-32) Anion Gap 10 (6-14) Blood Urea Nitrogen 80 mg/dL (8-26) Creatinine 3.5 mg/dL (0.7-1.3) Estimated GFR (Cockcroft-Gault) 17.6 BUN/Creatinine Ratio 23 (6-20) Glucose Level 96 mg/dL (70-99) Calcium Level 8.2 mg/dL (8.5-10.1) Total Bilirubin 1.5 mg/dL (0.2-1.0) Aspartate Amino Transf (AST/SGOT) 59 U/L (15-37) Alanine Aminotransferase (ALT/SGPT) 13 U/L (16-63) Alkaline Phosphatase 80 U/L (46-116) Total Protein 6.4 g/dL (6.4-8.2) Albumin 2.1 g/dL (3.4-5.0) Albumin/Globulin Ratio 0.5 (1.0-1.7) O2 Saturation 97 % (92-99) Arterial Blood pH 7.38 (7.35-7.45) Arterial Blood pCO2 at Patient Temp 45 mmHg (35-46) Arterial Blood pO2 at Patient Temp 102 mmHg (65-108) Arterial Blood HCO3 26 mmol/L (21-28) Arterial Blood Base Excess 1 mmol/L (-3-3) FiO2 40 Assessment and Plan Assessmemt and Plan Problems Medical Problems: (1) Altered mental status Status: Acute Comment Review of Relevant I have reviewed the following items hay (where applicable) has been applied. Labs Laboratory Tests Test 08/03/19 16:21 08/04/19 05:30 08/04/19 07:20 08/04/19 11:16 Heparin Anti-Xa Act, Unfractionated 0.40 IU/mL (0.30-0.70) 1.04 IU/mL (0.30-0.70) White Blood Count 12.8 x10^3/uL (4.0-11.0) Red Blood Count 3.62 x10^6/uL (4.30-5.70) Hemoglobin 11.4 g/dL (13.0-17.5) Hematocrit 34.3 % (39.0-53.0) Mean Corpuscular Volume 95 fL (79-100) Mean Corpuscular Hemoglobin 32 pg (25-35) Mean Corpuscular Hemoglobin Concent 33 g/dL (31-37) Red Cell Distribution Width 13.8 % (11.5-14.5) Platelet Count 247 x10^3/uL (140-400) Neutrophils (%) (Auto) 85 % (31-73) Lymphocytes (%) (Auto) 9 % (24-48) Monocytes (%) (Auto) 4 % (0-9) Eosinophils (%) (Auto) 2 % (0-3) Basophils (%) (Auto) 0 % (0-3) Neutrophils # (Auto) 10.8 x10^3/uL (1.8-7.7) Lymphocytes # (Auto) 1.1 x10^3/uL (1.0-4.8) Monocytes # (Auto) 0.5 x10^3/uL (0.0-1.1) Eosinophils # (Auto) 0.3 x10^3/uL (0.0-0.7) Basophils # (Auto) 0.0 x10^3/uL (0.0-0.2) Sodium Level 138 mmol/L (136-145) Potassium Level 3.7 mmol/L (3.5-5.1) Chloride Level 100 mmol/L (98-107) Carbon Dioxide Level 26 mmol/L (21-32) Anion Gap 12 (6-14) Blood Urea Nitrogen 72 mg/dL (8-26) Creatinine 3.7 mg/dL (0.7-1.3) Estimated GFR (Cockcroft-Gault) 16.5 Glucose Level 85 mg/dL (70-99) Calcium Level 8.2 mg/dL (8.5-10.1) Phosphorus Level 5.4 mg/dL (2.6-4.7) Albumin 2.1 g/dL (3.4-5.0) O2 Saturation 97 % (92-99) Arterial Blood pH 7.42 (7.35-7.45) Arterial Blood pCO2 at Patient Temp 35 mmHg (35-46) Arterial Blood pO2 at Patient Temp 97 mmHg (65-108) Arterial Blood HCO3 22 mmol/L (21-28) Arterial Blood Base Excess -2 mmol/L (-3-3) FiO2 40 Test 08/05/19 05:00 08/05/19 08:00 White Blood Count 11.7 x10^3/uL (4.0-11.0) Red Blood Count 3.53 x10^6/uL (4.30-5.70) Hemoglobin 11.4 g/dL (13.0-17.5) Hematocrit 33.7 % (39.0-53.0) Mean Corpuscular Volume 96 fL (79-100) Mean Corpuscular Hemoglobin 32 pg (25-35) Mean Corpuscular Hemoglobin Concent 34 g/dL (31-37) Red Cell Distribution Width 13.9 % (11.5-14.5) Platelet Count 254 x10^3/uL (140-400) Neutrophils (%) (Auto) 81 % (31-73) Lymphocytes (%) (Auto) 12 % (24-48) Monocytes (%) (Auto) 4 % (0-9) Eosinophils (%) (Auto) 3 % (0-3) Basophils (%) (Auto) 1 % (0-3) Neutrophils # (Auto) 9.4 x10^3/uL (1.8-7.7) Lymphocytes # (Auto) 1.4 x10^3/uL (1.0-4.8) Monocytes # (Auto) 0.5 x10^3/uL (0.0-1.1) Eosinophils # (Auto) 0.3 x10^3/uL (0.0-0.7) Basophils # (Auto) 0.1 x10^3/uL (0.0-0.2) Heparin Anti-Xa Act, Unfractionated 0.42 IU/mL (0.30-0.70) Sodium Level 139 mmol/L (136-145) Potassium Level 3.8 mmol/L (3.5-5.1) Chloride Level 102 mmol/L (98-107) Carbon Dioxide Level 27 mmol/L (21-32) Anion Gap 10 (6-14) Blood Urea Nitrogen 80 mg/dL (8-26) Creatinine 3.5 mg/dL (0.7-1.3) Estimated GFR (Cockcroft-Gault) 17.6 BUN/Creatinine Ratio 23 (6-20) Glucose Level 96 mg/dL (70-99) Calcium Level 8.2 mg/dL (8.5-10.1) Total Bilirubin 1.5 mg/dL (0.2-1.0) Aspartate Amino Transf (AST/SGOT) 59 U/L (15-37) Alanine Aminotransferase (ALT/SGPT) 13 U/L (16-63) Alkaline Phosphatase 80 U/L (46-116) Total Protein 6.4 g/dL (6.4-8.2) Albumin 2.1 g/dL (3.4-5.0) Albumin/Globulin Ratio 0.5 (1.0-1.7) O2 Saturation 97 % (92-99) Arterial Blood pH 7.38 (7.35-7.45) Arterial Blood pCO2 at Patient Temp 45 mmHg (35-46) Arterial Blood pO2 at Patient Temp 102 mmHg (65-108) Arterial Blood HCO3 26 mmol/L (21-28) Arterial Blood Base Excess 1 mmol/L (-3-3) FiO2 40 Laboratory Tests Test 08/04/19 11:16 08/05/19 05:00 08/05/19 08:00 Heparin Anti-Xa Act, Unfractionated 1.04 IU/mL (0.30-0.70) 0.42 IU/mL (0.30-0.70) White Blood Count 11.7 x10^3/uL (4.0-11.0) Red Blood Count 3.53 x10^6/uL (4.30-5.70) Hemoglobin 11.4 g/dL (13.0-17.5) Hematocrit 33.7 % (39.0-53.0) Mean Corpuscular Volume 96 fL (79-100) Mean Corpuscular Hemoglobin 32 pg (25-35) Mean Corpuscular Hemoglobin Concent 34 g/dL (31-37) Red Cell Distribution Width 13.9 % (11.5-14.5) Platelet Count 254 x10^3/uL (140-400) Neutrophils (%) (Auto) 81 % (31-73) Lymphocytes (%) (Auto) 12 % (24-48) Monocytes (%) (Auto) 4 % (0-9) Eosinophils (%) (Auto) 3 % (0-3) Basophils (%) (Auto) 1 % (0-3) Neutrophils # (Auto) 9.4 x10^3/uL (1.8-7.7) Lymphocytes # (Auto) 1.4 x10^3/uL (1.0-4.8) Monocytes # (Auto) 0.5 x10^3/uL (0.0-1.1) Eosinophils # (Auto) 0.3 x10^3/uL (0.0-0.7) Basophils # (Auto) 0.1 x10^3/uL (0.0-0.2) Sodium Level 139 mmol/L (136-145) Potassium Level 3.8 mmol/L (3.5-5.1) Chloride Level 102 mmol/L (98-107) Carbon Dioxide Level 27 mmol/L (21-32) Anion Gap 10 (6-14) Blood Urea Nitrogen 80 mg/dL (8-26) Creatinine 3.5 mg/dL (0.7-1.3) Estimated GFR (Cockcroft-Gault) 17.6 BUN/Creatinine Ratio 23 (6-20) Glucose Level 96 mg/dL (70-99) Calcium Level 8.2 mg/dL (8.5-10.1) Total Bilirubin 1.5 mg/dL (0.2-1.0) Aspartate Amino Transf (AST/SGOT) 59 U/L (15-37) Alanine Aminotransferase (ALT/SGPT) 13 U/L (16-63) Alkaline Phosphatase 80 U/L (46-116) Total Protein 6.4 g/dL (6.4-8.2) Albumin 2.1 g/dL (3.4-5.0) Albumin/Globulin Ratio 0.5 (1.0-1.7) O2 Saturation 97 % (92-99) Arterial Blood pH 7.38 (7.35-7.45) Arterial Blood pCO2 at Patient Temp 45 mmHg (35-46) Arterial Blood pO2 at Patient Temp 102 mmHg (65-108) Arterial Blood HCO3 26 mmol/L (21-28) Arterial Blood Base Excess 1 mmol/L (-3-3) FiO2 40 Microbiology 08/02/19 Blood Culture - Preliminary, Resulted NO GROWTH AFTER 3 DAYS 07/31/19 - Final, Resulted 07/31/19 - Final, Resulted 07/31/19 - Final, Resulted 07/31/19 - Preliminary, Resulted 07/31/19 - Preliminary, Resulted 07/31/19 - Preliminary, Resulted 07/31/19 Gram Stain Evaluation - Final, Resulted 07/31/19 Sputum Culture - Final, Resulted 07/31/19 Sputum Result 1 - Final, Resulted 07/30/19 Urine Culture - Final, Complete 07/30/19 Urine Culture Result 1 (SONIA) - Final, Complete Medications Current Medications Albuterol/ Ipratropium (Duoneb) 3 ml 1X ONCE NEB Last administered on 07/30/19at 18:00; Start 07/30/19 at 18:00; Stop 07/30/19 at 18:01; Status DC Albuterol Sulfate (Ventolin Neb Soln) 10 mg 1X ONCE CONT NEB Last administered on 07/30/19at 18:00; Start 07/30/19 at 18:00; Stop 07/30/19 at 18:01; Status DC Morphine Sulfate (Morphine Sulfate) 2 mg PRN Q15MIN PRN IV/SQ PAIN GREATER THAN 3/10 Last administered on 07/30/19at 18:08; Start 07/30/19 at 18:00; Stop 07/31/19 at 00:10; Status DC Diltiazem HCl (Cardizem Iv Push) 10 mg 1X ONCE IVP Last administered on 07/30/19at 18:01; Start 07/30/19 at 18:00; Stop 07/30/19 at 18:01; Status DC Diltiazem HCl 125 mg/Sodium Chloride 125 ml @ 5 mls/hr 1X ONCE IV Last administered on 07/30/19at 18:36; Start 07/30/19 at 18:00; Stop 07/31/19 at 18:59; Status DC Lorazepam (Ativan Inj) 2 mg 1X ONCE IVP Last administered on 07/30/19at 18:35; Start 07/30/19 at 18:15; Stop 07/30/19 at 18:16; Status DC Lorazepam (Ativan Inj) 2 mg STK-MED ONCE .ROUTE ; Start 07/30/19 at 18:14; Stop 07/30/19 at 18:14; Status DC Digoxin (Lanoxin) 250 mcg 1X ONCE IV Last administered on 07/30/19at 18:53; Start 07/30/19 at 18:45; Stop 07/30/19 at 18:46; Status DC Amiodarone HCl 150 mg/Dextrose 103 ml @ 618 mls/hr 1X ONCE IV Last administered on 07/30/19at 20:07; Start 07/30/19 at 18:45; Stop 07/30/19 at 18:54; Status DC Amiodarone HCl 450 mg/Dextrose 259 ml @ 0 mls/hr CONT PRN IV SEE I/O RECORD Last administered on 07/30/19at 20:21; Start 07/30/19 at 18:45 Sodium Chloride 1,000 ml @ 1,000 mls/hr 1X ONCE IV Last administered on 07/30/19at 18:20; Start 07/30/19 at 18:45; Stop 07/31/19 at 02:15; Status DC Sodium Chloride 2,130 ml @ 2,130 mls/hr Q1H IV Last administered on 07/30/19at 19:02; Start 07/30/19 at 18:53; Stop 07/31/19 at 02:15; Status DC Piperacillin Sod/ Tazobactam Sod 4.5 gm/Sodium Chloride 100 ml @ 200 mls/hr 1X ONCE IV Last administered on 07/30/19at 19:06; Start 07/30/19 at 19:00; Stop 07/31/19 at 08:04; Status DC Vancomycin HCl (Vanco Per Pharmacy) 1 each 1X ONCE MC ; Start 07/30/19 at 19:00; Stop 07/31/19 at 08:04; Status DC Norepinephrine Bitartrate 8 mg/ Dextrose 258 ml @ 0 mls/hr CONT PRN IV PER PROTOCOL; Start 07/30/19 at 19:00; Stop 07/31/19 at 08:04; Status DC Potassium Chloride/Water 100 ml @ 100 mls/hr Q1H IV Last administered on 07/30/19at 21:31; Start 07/30/19 at 19:30; Stop 07/30/19 at 21:29; Status DC Vancomycin HCl 2 gm/Sodium Chloride 500 ml @ 250 mls/hr 1X ONCE IV Last administered on 07/30/19at 20:15; Start 07/30/19 at 19:15; Stop 07/30/19 at 21:14; Status DC Fentanyl Citrate (Fentanyl 2ml Vial) 25 mcg PRN Q1HR PRN IV SEE COMMENTS; Start 07/30/19 at 19:15; Stop 07/31/19 at 00:11; Status DC Fentanyl Citrate (Fentanyl 2ml Vial) 50 mcg PRN Q1HR PRN IV SEE COMMENTS; Start 07/30/19 at 19:15; Stop 07/31/19 at 00:11; Status DC Chlorhexidine Gluconate (Peridex) 15 ml BID MM Last administered on 08/05/19at 10:16; Start 07/30/19 at 21:00 Morphine Sulfate (Morphine Sulfate) 2 mg PRN Q1HR PRN IV SEE COMMENTS.; Start 07/30/19 at 19:15; Stop 07/31/19 at 00:11; Status DC Morphine Sulfate (Morphine Sulfate) 4 mg PRN Q1HR PRN IV SEE COMMENTS.; Start 07/30/19 at 19:15; Stop 07/31/19 at 00:11; Status DC Midazolam HCl 50 mg/Sodium Chloride 50 ml @ 0 mls/hr CONT PRN IV SEE PROTOCOL Last administered on 07/30/19at 20:40; Start 07/30/19 at 19:15; Stop 07/31/19 at 00:10; Status DC Acetaminophen (Tylenol Supp) 650 mg 1X ONCE TN Last administered on 07/30/19at 20:49; Start 07/30/19 at 20:15; Stop 07/30/19 at 20:16; Status DC Ondansetron HCl (Zofran) 4 mg PRN Q8HRS PRN IV NAUSEA/VOMITING; Start 07/30/19 at 20:30; Stop 07/31/19 at 20:29; Status DC Acetaminophen (Tylenol) 650 mg PRN Q4HRS PRN PO FEVER Last administered on 07/31/19at 12:49; Start 07/30/19 at 20:30; Stop 07/31/19 at 20:29; Status DC Heparin Sodium/ Dextrose 250 ml @ 0 mls/hr CONT PRN IV PER PROTOCOL Last administered on 08/04/19at 21:01; Start 07/30/19 at 20:45 Heparin Sodium (Porcine) (Heparin Sodium) 2,200 unit PRN Q6HRS PRN IV FOR UFH LEVEL LESS THAN 0.2 Last administered on 08/01/19at 15:42; Start 07/30/19 at 20:45 Info (Anti-Coagulation Monitoring By Pharmacy) 1 each PRN DAILY PRN MC SEE COMMENTS Last administered on 08/04/19at 15:55; Start 07/30/19 at 21:00 Etomidate (Amidate) 20 mg STK-MED ONCE IV ; Start 07/30/19 at 21:15; Stop 07/30/19 at 21:16; Status DC Rocuronium [place] (Zemuron) 50 mg STK-MED ONCE .ROUTE ; Start 07/30/19 at 21:16; Stop 07/30/19 at 21:16; Status DC Diltiazem HCl 125 mg/Sodium Chloride 125 ml @ 5 mls/hr CONT PRN IV SEE I/O RECORD; Start 07/30/19 at 22:30; Stop 07/31/19 at 06:01; Status DC Sodium Bicarbonate 100 meq/Dextrose 1,100 ml @ 75 mls/hr 1X ONCE IV Last administered on 07/31/19at 01:54; Start 07/30/19 at 23:00; Stop 07/31/19 at 13:39; Status DC Etomidate (Amidate) 20 mg 1X ONCE IV Last administered on 07/30/19at 19:27; Start 07/30/19 at 23:45; Stop 07/30/19 at 23:46; Status DC Rocuronium [place] (Zemuron) 50 mg 1X ONCE IV Last administered on 07/30/19at 19:28; Start 07/30/19 at 23:45; Stop 07/30/19 at 23:46; Status DC Rocuronium [place] (Zemuron) 50 mg 1X ONCE IV Last administered on 07/30/19at 19:28; Start 07/30/19 at 23:45; Stop 07/30/19 at 23:46; Status DC Digoxin (Lanoxin) 250 mcg 1X ONCE IV Last administered on 07/31/19at 00:12; Start 07/31/19 at 00:30; Stop 07/31/19 at 00:31; Status DC Heparin Sodium/ Dextrose 250 ml @ 0 mls/hr CONT PRN IV SEE I/O RECORD; Start 07/31/19 at 00:00; Status UNV Fentanyl Citrate 30 ml @ 0 mls/hr CONT PRN IV SEE PROTOCOL Last administered on 08/04/19at 22:40; Start 07/31/19 at 00:15 Midazolam HCl 50 mg/Sodium Chloride 50 ml @ 0 mls/hr CONT PRN IV SEE PROTOCOL Last administered on 08/05/19at 03:56; Start 07/31/19 at 00:15 Diltiazem HCl 125 mg/Sodium Chloride 125 ml @ 5 mls/hr CONT PRN IV SEE I/O RECORD Last administered on 08/01/19at 03:03; Start 07/31/19 at 01:00 Albuterol/ Ipratropium (Duoneb) 3 ml Q4HRS NEB Last administered on 08/05/19at 08:00; Start 07/31/19 at 04:00 Sodium Chloride 1,000 ml @ 120 mls/hr Q8H20M IV Last administered on 07/31/19at 02:30; Start 07/31/19 at 02:30; Stop 07/31/19 at 13:55; Status DC Vancomycin HCl (Vanco Per Pharmacy) 1 each PRN DAILY PRN MC SEE COMMENTS Last administered on 07/31/19at 03:30; Start 07/31/19 at 02:30; Stop 07/31/19 at 08:06; Status DC Vancomycin HCl 1.25 gm/Sodium Chloride 250 ml @ 167 mls/hr Q12H IV Last administered on 07/31/19at 07:57; Start 07/31/19 at 08:00; Stop 07/31/19 at 08:06; Status DC Vancomycin HCl (Vancomycin Trough Level) 1 each 1X ONCE MC ; Start 08/01/19 at 07:30; Stop 08/01/19 at 07:31; Status Cancel Micafungin Sodium 100 mg/Dextrose 100 ml @ 100 mls/hr Q24H IV Last administered on 08/05/19at 10:16; Start 07/31/19 at 08:00 Oseltamivir Phosphate (Tamiflu) 30 mg BID PO Last administered on 08/04/19at 21:02; Start 07/31/19 at 09:00; Stop 08/05/19 at 08:59; Status DC Linezolid/Dextrose 300 ml @ 300 mls/hr Q12HR IV Last administered on 08/04/19 21:02; Start 07/31/19 at 09:00; Stop 08/05/19 at 08:02; Status DC Daptomycin 490 mg/ Sodium Chloride 50 ml @ 100 mls/hr Q24H IV Last administered on 07/31/19at 12:40; Start 07/31/19 at 10:00; Stop 08/01/19 at 09:01; Status DC Meropenem 1 gm/ Sodium Chloride 100 ml @ 200 mls/hr Q12HR IV Last administered on 08/05/19 10:15; Start 07/31/19 at 09:00 Potassium Bicarbonate (Potassium Effervescent Tablet) 40 meq 1X ONCE PEG Last administered on 07/31/19at 10:54; Start 07/31/19 at 10:30; Stop 07/31/19 at 10:43; Status DC Famotidine (Pepcid Vial) 20 mg QHS IVP Last administered on 08/04/19at 21:01; Start 07/31/19 at 21:00 Albumin Human 100 ml @ 100 mls/hr TID IV Last administered on 08/02/19at 09:44; Start 07/31/19 at 14:30; Stop 08/02/19 at 09:59; Status DC Sodium Chloride 2,340 ml @ 2,340 mls/hr Q1H IV ; Start 07/31/19 at 14:48; Status UNV Sodium Chloride 500 ml @ 1,000 mls/hr PRN Q30MIN PRN IV SEE COMMENTS; Start 07/31/19 at 15:00; Status UNV Dobutamine HCl/ Dextrose 250 ml @ 0 mls/hr CONT PRN IV SEE I/O RECORD; Start 07/31/19 at 15:00; Status UNV Ondansetron HCl (Zofran) 4 mg PRN Q6HRS PRN IV NAUSEA/VOMITING; Start 07/31/19 at 15:00 Prochlorperazine (Compazine) 25 mg PRN Q12HR PRN TN NAUSEA/VOMITING; Start 07/31/19 at 15:00 Famotidine (Pepcid Vial) 20 mg BID IVP ; Start 07/31/19 at 21:00; Status UNV Sodium Chloride (Normal Saline Flush) 3 ml QSHIFT PRN IV AFTER MEDS AND BLOOD DRAWS; Start 07/31/19 at 15:00 Bisacodyl (Dulcolax Supp) 10 mg PRN DAILY PRN TN CONSTIPATION; Start 07/31/19 at 15:00 Thiamine HCl 100 mg/Dextrose 51 ml @ 102 mls/hr DAILY IV Last administered on 08/05/19at 10:15; Start 07/31/19 at 17:00 Vitamin A/Vitamin D (Vitamin A & D Ointment) 1 [place] PRN Q1HR PRN TP SKIN PROTECTION Last administered on 08/03/19at 08:14; Start 07/31/19 at 16:45 Daptomycin 490 mg/ Sodium Chloride 50 ml @ 100 mls/hr Q48H IV Last administered on 08/03/19at 11:19; Start 08/01/19 at 10:00; Stop 08/04/19 at 07:59; Status DC Furosemide (Lasix) 40 mg 1X ONCE IVP Last administered on 08/01/19at 22:14; Start 08/01/19 at 22:30; Stop 08/01/19 at 22:31; Status DC Potassium Bicarbonate (Potassium Effervescent Tablet) 20 meq 1X ONCE PEG Last administered on 08/01/19at 22:14; Start 08/01/19 at 22:30; Stop 08/01/19 at 22:31; Status DC Lidocaine HCl (Buffered Lidocaine 1%) 3 ml STK-MED ONCE .ROUTE ; Start 08/03/19 at 09:05; Stop 08/03/19 at 09:05; Status DC Lidocaine HCl (Buffered Lidocaine 1%) 3 ml 1X ONCE INJ Last administered on 08/03/19at 09:28; Start 08/03/19 at 09:30; Stop 08/03/19 at 09:31; Status DC Multivitamins/ Minerals Therapeutic (Centrum Multivit-Mineral Liq) 5 ml DAILY PEG Last administered on 08/05/19at 10:16; Start 08/03/19 at 12:00 Sodium Chloride 1,000 ml @ 1,000 mls/hr Q1H PRN IV hypotension; Start 08/03/19 at 13:31; Stop 08/03/19 at 19:30; Status DC Sodium Chloride 1,000 ml @ 400 mls/hr Q2H30M PRN IV PATENCY; Start 08/03/19 at 13:31; Stop 08/04/19 at 01:30; Status DC Info (PHARMACY MONITORING -- do not chart) 1 each PRN DAILY PRN MC SEE COMMENTS; Start 08/03/19 at 13:45; Status UNV Info (PHARMACY MONITORING -- do not chart) 1 each PRN DAILY PRN MC SEE CO MMENTS; Start 08/03/19 at 13:45 Ondansetron HCl (Zofran) 4 mg PRN Q6HRS PRN IV NAUSEA/VOMITING; Start 08/04/19 at 07:00; Stop 08/05/19 at 06:59; Status DC Fentanyl Citrate (Fentanyl 2ml Vial) 25 mcg PRN Q5MIN PRN IV MILD PAIN 1-3; Start 08/04/19 at 07:00; Stop 08/05/19 at 06:59; Status DC Fentanyl Citrate (Fentanyl 2ml Vial) 50 mcg PRN Q5MIN PRN IV MODERATE TO SEVERE PAIN; Start 08/04/19 at 07:00; Stop 08/05/19 at 06:59; Status DC Ringer's Solution 1,000 ml @ 30 mls/hr Q24H IV ; Start 08/04/19 at 07:00; Stop 08/04/19 at 18:59; Status DC Prochlorperazine Edisylate (Compazine) 5 mg PACU PRN PRN IV NAUSEA, MRX1; Start 08/04/19 at 07:00; Stop 08/05/19 at 06:59; Status DC Cefazolin Sodium 1 gm/Sodium Chloride 500 ml @ 500 mls/hr 1X ONCE IRR ; Start 08/04/19 at 06:00; Stop 08/04/19 at 06:59; Status DC Active Scripts Active Proair Hfa (Albuterol Sulfate) 8.5 Gm Hfa.aer.ad 2 Puff IH PRN Q4-6HRS PRN 21 Days Tessalon Perle (Benzonatate) 100 Mg Capsule 1 Cap PO TID Prednisone 50 Mg Tablet 1 Tab PO DAILY Cyclobenzaprine Hcl 5 Mg Tablet 1 Tab PO TID Ibuprofen 800 Mg Tablet 800 Mg PO Q6-8HRS Zofran Odt (Ondansetron) 4 Mg Tab.rapdis 1 Tab SL Q8HRS Ultram (Tramadol Hcl) 50 Mg Tablet 1 Tab PO Q6HRS Vitals/I & O Vital Sign - Last 24 Hours 08/04/19 08/04/19 08/04/19 08/04/19 11:00 11:00 11:51 12:00 Pulse 78 Resp 24 B/P (MAP) 112/58 (76) Pulse Ox 99 97 99 O2 Delivery Ventilator Ventilator Mechanical Ventilator O2 Flow Rate 80.0 08/04/19 08/04/19 08/04/19 08/04/19 12:00 12:21 13:00 13:05 Temp 99.0 99.0 Pulse 82 82 Resp 24 24 B/P (MAP) 126/61 (82) 127/66 (86) Pulse Ox 98 99 99 97 O2 Delivery Ventilator Ventilator Ventilator O2 Flow Rate 80.0 08/04/19 08/04/19 08/04/19 08/04/19 14:00 15:00 15:26 16:00 Temp 99.0 99.0 Pulse 84 84 90 Resp 24 24 24 B/P (MAP) 141/71 (94) 136/71 (92) 136/77 (96) Pulse Ox 99 99 97 98 O2 Delivery Ventilator Ventilator Ventilator Ventilator 08/04/19 08/04/19 08/04/19 08/04/19 16:00 17:00 17:25 18:00 Pulse 86 88 Resp 24 24 B/P (MAP) 151/74 (99) 160/81 (107) Pulse Ox 99 98 99 O2 Delivery Mechanical Ventilator Ventilator Ventilator Ventilator 08/04/19 08/04/19 08/04/19 08/04/19 19:00 19:40 20:00 20:00 Temp 98.6 98.6 Pulse 86 86 Resp 24 B/P (MAP) 144/71 (95) 143/74 (97) Pulse Ox 97 98 98 O2 Delivery Ventilator Ventilator Mechanical Ventilator Ventilator 08/04/19 08/04/19 08/04/19 08/04/19 20:42 21:00 22:00 22:40 Pulse 85 84 Resp B/P (MAP) 137/74 (95) 131/70 (90) Pulse Ox 98 99 98 99 O2 Delivery Ventilator Ventilator Ventilator O2 Flow Rate 80.0 08/04/19 08/04/19 08/04/19 08/04/19 22:51 23:00 23:10 23:59 Pulse 84 Resp 24 B/P (MAP) 131/71 (91) Pulse Ox 98 99 98 O2 Delivery Ventilator Ventilator Mechanical Ventilator O2 Flow Rate 80.0 08/05/19 08/05/19 08/05/19 08/05/19 00:00 01:00 01:30 02:00 Temp 98.6 98.6 Pulse 86 82 82 Resp B/P (MAP) 132/66 (88) 116/56 (76) 129/63 (85) Pulse Ox 97 98 98 98 O2 Delivery Ventilator Ventilator Ventilator Ventilator 08/05/19 08/05/19 08/05/19 08/05/19 02:57 03:00 04:00 04:00 Temp 98.8 98.8 Pulse 82 86 Resp B/P (MAP) 123/59 (80) 148/69 (95) Pulse Ox 98 98 98 O2 Delivery Ventilator Ventilator Mechanical Ventilator Ventilator 08/05/19 08/05/19 08/05/19 08/05/19 05:00 05:33 06:00 07:00 Pulse 83 83 82 Resp 24 24 29 B/P (MAP) 134/66 (88) 141/65 (90) 141/68 (92) Pulse Ox 97 98 98 98 O2 Delivery Ventilator Ventilator Ventilator Ventilator 08/05/19 08/05/19 08:00 10:03 Pulse Ox 98 98 O2 Delivery Ventilator Ventilator Intake and Output 08/04/19 08/04/19 08/05/19 15:00 23:00 07:00 Intake Total 100 ml 1475 ml 493 ml Output Total 0 ml 550 ml 550 ml Balance 100 ml 925 ml -57 ml Nutrition Consultation Dietary Evaluation: Recommendations by RD: Dietary education by RD, Increase Calorie Intake, Protein supplementation Comments: REC advance VitalHP 10 ml q8 hrs as tolerated to goal rate 65 ml/hr w/100 ml water flushes q4 hrs or flushes per MD; recommend switching formula back to VitalAF once formula becomes available to avoid excessive protein intake REC Javi BID (once in AM and once in PM) for wound healing, dissolve each packet in ~4 oz water to dissolve and flush tube w/~30 ml water before and after each packet REC MVI for wound healing - discussed RN (Claudia) Expected Outcomes/Goals: Initiation of TFs within 24 - 48 hrs of intubation - met, new goal estanblished New goal 08/02: TF infusion to meet >75% est needs Malnutrition Findings: Food and Nutrition Intake (Mod: <75% est energy req 7days Body Fat Depletion (Non Severe: Mild Depletion Weight Status: Appropriate CORY SCHMIDT MD Aug 05, 2019 10:41
--- NOTE | 2019-08-05 11:31 | PDOC ---
CARDIO Progress Notes Date and Time Date of Service 08/05/19 Time of Evaluation 1120 Subjective Subjective: Other (intubated/sedated) Vitals Vitals Vital Signs Date Time Temp Pulse Resp B/P (MAP) Pulse Ox O2 Delivery O2 Flow Rate FiO2 08/05/19 11:00 98 80.0 08/05/19 10:03 Ventilator 08/05/19 07:00 82 29 141/68 (92) 08/05/19 04:00 98.8 98.8 Weight Weight [ ] Input and Output Intake and Output Intake and Output 08/05/19 07:00 Intake Total 2068 ml Output Total 1100 ml Balance 968 ml Intake IV Total 1768 ml Tube Feeding 300 ml Output Urine Total 1100 ml Gastric Drainage Total 0 ml Laboratory Labs Laboratory Tests Test 08/05/19 05:00 08/05/19 08:00 White Blood Count 11.7 x10^3/uL (4.0-11.0) Red Blood Count 3.53 x10^6/uL (4.30-5.70) Hemoglobin 11.4 g/dL (13.0-17.5) Hematocrit 33.7 % (39.0-53.0) Mean Corpuscular Volume 96 fL (79-100) Mean Corpuscular Hemoglobin 32 pg (25-35) Mean Corpuscular Hemoglobin Concent 34 g/dL (31-37) Red Cell Distribution Width 13.9 % (11.5-14.5) Platelet Count 254 x10^3/uL (140-400) Neutrophils (%) (Auto) 81 % (31-73) Lymphocytes (%) (Auto) 12 % (24-48) Monocytes (%) (Auto) 4 % (0-9) Eosinophils (%) (Auto) 3 % (0-3) Basophils (%) (Auto) 1 % (0-3) Neutrophils # (Auto) 9.4 x10^3/uL (1.8-7.7) Lymphocytes # (Auto) 1.4 x10^3/uL (1.0-4.8) Monocytes # (Auto) 0.5 x10^3/uL (0.0-1.1) Eosinophils # (Auto) 0.3 x10^3/uL (0.0-0.7) Basophils # (Auto) 0.1 x10^3/uL (0.0-0.2) Heparin Anti-Xa Act, Unfractionated 0.42 IU/mL (0.30-0.70) Sodium Level 139 mmol/L (136-145) Potassium Level 3.8 mmol/L (3.5-5.1) Chloride Level 102 mmol/L (98-107) Carbon Dioxide Level 27 mmol/L (21-32) Anion Gap 10 (6-14) Blood Urea Nitrogen 80 mg/dL (8-26) Creatinine 3.5 mg/dL (0.7-1.3) Estimated GFR (Cockcroft-Gault) 17.6 BUN/Creatinine Ratio 23 (6-20) Glucose Level 96 mg/dL (70-99) Calcium Level 8.2 mg/dL (8.5-10.1) Total Bilirubin 1.5 mg/dL (0.2-1.0) Aspartate Amino Transf (AST/SGOT) 59 U/L (15-37) Alanine Aminotransferase (ALT/SGPT) 13 U/L (16-63) Alkaline Phosphatase 80 U/L (46-116) Total Protein 6.4 g/dL (6.4-8.2) Albumin 2.1 g/dL (3.4-5.0) Albumin/Globulin Ratio 0.5 (1.0-1.7) O2 Saturation 97 % (92-99) Arterial Blood pH 7.38 (7.35-7.45) Arterial Blood pCO2 at Patient Temp 45 mmHg (35-46) Arterial Blood pO2 at Patient Temp 102 mmHg (65-108) Arterial Blood HCO3 26 mmol/L (21-28) Arterial Blood Base Excess 1 mmol/L (-3-3) FiO2 40 Microbiology Micro Microbiology 08/02/19 Blood Culture - Preliminary, Resulted NO GROWTH AFTER 3 DAYS 07/31/19 - Final, Resulted 07/31/19 - Final, Resulted 07/31/19 - Final, Resulted 07/31/19 - Preliminary, Resulted 07/31/19 - Preliminary, Resulted 07/31/19 - Preliminary, Resulted 07/31/19 Gram Stain Evaluation - Final, Resulted 07/31/19 Sputum Culture - Final, Resulted 07/31/19 Sputum Result 1 - Final, Resulted 07/30/19 Urine Culture - Final, Complete 07/30/19 Urine Culture Result 1 (SONIA) - Final, Complete Physical Exam HEENT: Neck Supple W Full Motion Chest: Symmetric LUNGS: Other (mechanical vent ) Heart: S1S2, RRR (SR with PACs) Abdomen: Other (soft ) Extremities: No Edema, Other (Rook boot, extremity warm. DRSG to right foot.) Neurology: other (sedated ) Assessment Assessment 1. Acute respiratory hypercapnic respiratory failure with PNA, influenza, and possible AE COPD. s/p intubation. Slow progress. Continue vent management per pulmonary team. 2. Flu A 3. Sepsis, bacteremia with UTI/pneumonia: Continue antibiotics as per ID 4. SONIA: HD initiated 08/02 5. AFIB RVR: chronic per report. Heart rate is under better control. Will add IV metoprolol for rate control 6. Mildly elevated troponin: peaked at 0.11. Demand mediated with culprits above. 2-D echo showed normal LV systolic function. 7. Metabolic/hypoxic encephalopathy 8. Severe PAD: ischemia to right foot with grayish 4th toe possibly cardioemboli. On heparin. Right 4th toes with gangrenous changes; amputation planned, but waiting extubation for consent. Continue local wound care, rook boot 10. Noncompliance, homelessness 10. Tobaccoism GOKUL MELENDREZ APRN Aug 05, 2019 11:31
[2019-08-05] MEDS ORDERED: IV NORMAL SALINE 1000ML BAG 1,000 ML IV PRN (16:00)
[2019-08-05] MEDS ORDERED: 0.9 % SODIUM CHLORIDE 10 ML DISP.SYRIN. IV PRN ×2 (16:00)
[2019-08-05] MEDS: METOPROLOL TARTRATE 5 MG/5 ML VIAL. IVP SCH (17:55)
[2019-08-05] MEDS ORDERED: DIALYSIS PATIENT. MC PRN ×2 (20:30)
[2019-08-05] MEDS: FAMOTIDINE 20 MG/2 ML VIAL IVP SCH (21:00)
[2019-08-06] VITALS (23 sets, daily range): BP systolic 111–196; BP diastolic 51–94
[2019-08-06] MEDS: METOPROLOL TARTRATE 5 MG/5 ML VIAL. IVP SCH ×4 (00:42→18:02)
[2019-08-06] MEDS: IPRATRPIUM/ALBUTEROL 0.5/2.5MG 3 ML NEBU. NEB SCH ×6 (03:38→20:53)
[2019-08-06] MEDS: HEPARIN 25,000UTS/250ML PREMIX 250 ML IV PRN ×2 (05:06→17:23)
[2019-08-06 06:41] LABS: BASO # 0.1 x10^3/uL (0.0-0.2); BASO % 1 % (0-3); EOS # 0.4 x10^3/uL (0.0-0.7); EOS % 3 % (0-3); HEMATOCRIT 35.2 % (39.0-53.0); HEMOGLOBIN 11.9 g/dL (13.0-17.5); LYMPH # 1.7 x10^3/uL (1.0-4.8); LYMPH % 11 % (24-48); MEAN CORPUSCULAR HEMOGLOBIN 32 pg (25-35); MEAN CORPUSCULAR HGB CONC 34 g/dL (31-37); MEAN CORPUSCULAR VOLUME 95 fL (79-100); MONO # 0.6 x10^3/uL (0.0-1.1); MONO % 4 % (0-9); NEUT # 11.8 x10^3/uL (1.8-7.7); NEUT % 81 % (31-73); PLATELET COUNT 247 x10^3/uL (140-400); RED BLOOD COUNT 3.72 x10^6/uL (4.30-5.70); WHITE BLOOD COUNT 14.6 x10^3/uL (4.0-11.0)
[2019-08-06 06:45] LABS: CALCIUM 8.5 mg/dL (8.5-10.1); CREATININE 2.5 mg/dL (0.7-1.3); POTASSIUM 4.2 mmol/L (3.5-5.1)
[2019-08-06] MEDS: MIDAZOLAM HCL 50 MG in IV NORMAL SALINE 50ML 50 ML IV PRN (06:48)
--- NOTE | 2019-08-06 07:03 | PDOC ---
Infectious Disease Note Subjective Subjective Orally intubated/vent and sedated FiO2 40% 5 PEEP ROS ROS unable to obtain Vital Sign Vital Signs Vital Signs Date Time Temp Pulse Resp B/P (MAP) Pulse Ox O2 Delivery O2 Flow Rate FiO2 08/06/19 06:48 97 80.0 08/06/19 06:05 86 120/56 08/06/19 06:00 20 Ventilator 08/06/19 04:00 98.5 98.5 Physical Exam PHYSICAL EXAM GENERAL: Sedated, orally intubated/vent HEENT: Pupils equal, ETT and OGT in place. NECK: Supple. LUNGS: Diminished aeration bases HEART: S1, S2, irregular rhythm. 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 Rooke boots bilaterally DERMATOLOGIC: No generalized rash. NEUROLOGIC: Sedated and intubated. RIJ without signs of complications . R HD cath (08/02) PIVs Labs Lab Laboratory Tests Test 08/05/19 08:00 08/05/19 11:09 08/06/19 06:00 O2 Saturation 97 % (92-99) Arterial Blood pH 7.38 (7.35-7.45) Arterial Blood pCO2 at Patient Temp 45 mmHg (35-46) Arterial Blood pO2 at Patient Temp 102 mmHg (65-108) Arterial Blood HCO3 26 mmol/L (21-28) Arterial Blood Base Excess 1 mmol/L (-3-3) FiO2 40 Heparin Anti-Xa Act, Unfractionated 0.33 IU/mL (0.30-0.70) White Blood Count 14.6 x10^3/uL (4.0-11.0) Red Blood Count 3.72 x10^6/uL (4.30-5.70) Hemoglobin 11.9 g/dL (13.0-17.5) Hematocrit 35.2 % (39.0-53.0) Mean Corpuscular Volume 95 fL (79-100) Mean Corpuscular Hemoglobin 32 pg (25-35) Mean Corpuscular Hemoglobin Concent 34 g/dL (31-37) Red Cell Distribution Width 14.0 % (11.5-14.5) Platelet Count 247 x10^3/uL (140-400) Neutrophils (%) (Auto) 81 % (31-73) Lymphocytes (%) (Auto) 11 % (24-48) Monocytes (%) (Auto) 4 % (0-9) Eosinophils (%) (Auto) 3 % (0-3) Basophils (%) (Auto) 1 % (0-3) Neutrophils # (Auto) 11.8 x10^3/uL (1.8-7.7) Lymphocytes # (Auto) 1.7 x10^3/uL (1.0-4.8) Monocytes # (Auto) 0.6 x10^3/uL (0.0-1.1) Eosinophils # (Auto) 0.4 x10^3/uL (0.0-0.7) Basophils # (Auto) 0.1 x10^3/uL (0.0-0.2) Sodium Level 139 mmol/L (136-145) Potassium Level 4.2 mmol/L (3.5-5.1) Chloride Level 103 mmol/L (98-107) Carbon Dioxide Level 28 mmol/L (21-32) Anion Gap 8 (6-14) Blood Urea Nitrogen 59 mg/dL (8-26) Creatinine 2.5 mg/dL (0.7-1.3) Estimated GFR (Cockcroft-Gault) 26.0 Glucose Level 99 mg/dL (70-99) Calcium Level 8.5 mg/dL (8.5-10.1) Micro Streptococcus pneumoniae Mucoid strain Performed at: - [facility] [address] [id number] [employer] Man: MILADY Wang MD, Phone: [phone] Streptococcus pneumoniae Mucoid strain This nonmeningitis penicillin-susceptible pneumococcal isolate can be considered susceptible to the oral agents amoxicillin, amoxicillin-clavulanic acid, ampicillin, cefaclor, cefdinir, cefditoren, cefpodoxime, cefprozil, cefuroxime, and loracarbef, and to the parenteral agents ampicillin, ampicillin-sulbactam, cefepime, cefotaxime, ceftizoxime, ceftriaxone, cefuroxime, ertapenem, imipenem, and meropenem, for approved indications. Doses of IV penicillin of at least 2 million units every 4 hours in adults with normal renal function (12 million units per day) are effective in treating nonmeningeal pneumococcal infections due to strains that are susceptible to penicillin. (CLSI 2011) Use of cefotaxime or ceftriaxone in meningitis requires therapy with maximum doses. (CLSI) For cefotaxime, use of interpretive criteria for nonmeningitis requires doses appropriate for serious pneumococcal infections (e.g., at least 1 g (adults) or 50 mg/kg (children) every eight hours or more frequently). (CLSI) Use of penicillin in meningitis requires therapy with maximum doses of IV penicillin (e.g. at least 3 million units every 4 hours in adults with normal renal function). (CLSI) CONTINUED ON NEXT PAGE RUN DATE: 08/03/19 [facility] *LIVE* PAGE 2 RUN TIME: 1810 Specimen Inquiry SPEC: [id number] PATIENT: DEANDRE WARREN [id number] (Continued) Procedure Result ANTIMICROBIAL SUSCEPTIBILITY Final Comment S = Susceptible; I = Intermediate; R = Resistant P = Positive; N = Negative MICS are expressed in micrograms per mL Antibiotic RSLT#1 RSLT#2 RSLT#3 RSLT#4 Cefotaxime (meningitis) S<=0.25 Cefotaxime (non-meningitis) S<=0.25 Ceftriaxone (meningitis) S<=0.25 Ceftriaxone (non-meningitis) S<=0.25 Erythromycin S<=0.06 Levofloxacin S =1 Meropenem S<=0.06 Penicillin (oral pen V) S<=0.03 Penicillin IV (meningitis) S<=0.03 Penicillin IV (non-mening) S<=0.03 Tetracycline R> 4 Trimethoprim/Sulfa S<=0.25 Vancomycin S =0.5 Microbiology 08/02/19 Blood Culture - Preliminary, Resulted NO GROWTH AFTER 1 DAY 07/31/19 - Final, Resulted 07/31/19 - Final, Resulted 07/31/19 - Final, Resulted 07/31/19 - Preliminary, Resulted 07/31/19 - Preliminary, Resulted 07/31/19 - Preliminary, Resulted 07/31/19 Gram Stain Evaluation - Final, Resulted 07/31/19 Sputum Culture, Resulted Pending 07/30/19 Urine Culture - Final, Complete 07/30/19 Urine Culture Result 1 (SONIA) - Final, Complete Objective Assessment Septic shock procalcitonin 25.26 Strep pneumo sepsis (4 of 4 bottles), 07/30 ? source.- ?lung with strep pneumo ? foot -Repeat BC and 08/01 neg to date. TTE (07/31) no evidence veg Leukocytosis - mild increase today - ? reactive - HD 08/04 - AF - clinically stable Influenza A 07/30 , respiratory tract infection. Acute hypoxic respiratory failure with pneumonia, status post intubation. 07/31. strep pneumo & GPR - no identified on gram stain/mold. culture in process Severe peripheral vascular disease, right foot ischemia/gangrene Encephalopathy.- sedated now Lactic acidosis. Acute kidney injury Hyperbilirubinemia. LFT elevation. High troponin. Atrial fibrillation with rapid ventricular response, on amiodarone. Homelessness. Groin dermatitis. Tinea Plan Plan of Care F/u WBC - if worsens or spikes will need cults and broader abx coverage Off Daptomycin D/c Zyvox / Cont Merrem, and micafungin Tamiflu renally dosed Follow up labs and cultures Maintain aspiration precautions Droplet precautions can be discontinued Surgery - not performed as unable to get consent per nursing Critically ill Prognosis poor D/w nursing MATTHEW SEPULVEDA MD Aug 06, 2019 07:03
--- NOTE | 2019-08-06 08:09 | RAD ---
PORTABLE CHEST 1V INDICATION: Respiratory failure. COMPARISON STUDY: 08/05/2019. FINDINGS: Life Support Devices: Stable endotracheal tube, enteric tube, right IJ dual-lumen catheter, and right IJ central venous catheter. Lungs: Normal lung volume. Stable patchy bilateral basilar predominant opacities. Stable pulmonary vasculature. Pleura: Stable small bilateral pleural effusions. Heart and Mediastinum: Stable cardiomediastinal silhouette and great vessels. IMPRESSION: 1. Stable life support devices. 2. Stable basilar predominant opacities. 3. Stable small bilateral effusions. Electronically signed by: Duglas Donahue MD (08/06/2019 8:06 AM) [id number]
[2019-08-06 08:15] LABS: BASE EXCESS ABG 1 mmol/L (-3-3); HCO3 ABG 25 mmol/L (21-28); PCO2 ABG 38 mmHg (35-46); PO2 ABG 103 mmHg (65-108); SAT O2 ABG 98 % (92-99)
--- NOTE | 2019-08-06 08:15 | PDOC ---
SUBJECTIVE ROS Intubated, OBJECTIVE Vital Signs Vital Signs Date Time Temp Pulse Resp B/P (MAP) Pulse Ox O2 Delivery O2 Flow Rate FiO2 08/06/19 07:38 97 Ventilator 08/06/19 07:18 20 08/06/19 07:00 86 126/58 (80) 08/06/19 06:48 80.0 08/06/19 04:00 98.5 98.5 I & 0 Intake and Output 08/06/19 07:00 Intake Total 1525 ml Output Total 1200 ml Balance 325 ml Intake Oral 350 ml IV Total 475 ml Tube Feeding 700 ml Output Urine Total 1200 ml Gastric Drainage Total 0 ml PHYSICAL EXAM Physical Exam GENERAL: Sedated, orally intubated/vent HEENT: ETT and OGT in place. NECK: Supple. LUNGS: Diminished aeration bases HEART: S1, S2, irregular rhythm. ABDOMEN: Obese, soft, : Valladares in place, scrotal swelling, EXTREMITIES: Ischemic changes right foot with bullous lesion/gangrene; DERMATOLOGIC: No generalized rash. NEUROLOGIC: Sedated and intubated. 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 Acute hypoxic respiratory failure with pneumonia, status post intubation. 07/31. strep pneumo Severe peripheral vascular disease, right foot ischemia/gangrene Encephalopathy.- sedated Lactic acidosis. Hyperbilirubinemia/LFT elevation. Atrial fibrillation with rapid ventricular response, on amiodarone. COMMENT/RELEVANT DATA Meds Current Medications Medications (Trade) Dose Ordered Sig/[place] Start Time Stop Time Status Last Admin Dose Admin Acetaminophen (Tylenol Supp) 650 mg 1X ONCE 07/30/19 20:15 07/30/19 20:16 DC 07/30/19 20:49 650 MG Acetaminophen (Tylenol) 650 mg PRN Q4HRS PRN 07/30/19 20:30 07/31/19 20:29 DC 07/31/19 12:49 650 MG Albumin Human 100 ml @ 100 mls/hr TID 07/31/19 14:30 08/02/19 09:59 DC 08/02/19 09:44 100 MLS/HR Albuterol Sulfate (Ventolin Neb Soln) 10 mg 1X ONCE 07/30/19 18:00 07/30/19 18:01 DC 07/30/19 18:00 10 MG Albuterol/ Ipratropium (Duoneb) 3 ml Q4HRS 07/31/19 04:00 08/06/19 08:10 3 ML Amiodarone HCl 150 mg/Dextrose 103 ml @ 618 mls/hr 1X ONCE 07/30/19 18:45 07/30/19 18:54 DC 07/30/19 20:07 618 MLS/HR Amiodarone HCl 450 mg/Dextrose 259 ml @ 0 mls/hr CONT PRN 07/30/19 18:45 07/30/19 20:21 33.3 MLS/HR Bisacodyl (Dulcolax Supp) 10 mg PRN DAILY PRN 07/31/19 15:00 Cefazolin Sodium 1 gm/Sodium Chloride 500 ml @ 500 mls/hr 1X ONCE 08/04/19 06:00 08/04/19 06:59 DC Chlorhexidine Gluconate (Peridex) 15 ml BID 07/30/19 21:00 08/05/19 21:00 15 ML Daptomycin 490 mg/ Sodium Chloride 50 ml @ 100 mls/hr Q48H 08/01/19 10:00 08/04/19 07:59 DC 08/03/19 11:19 100 MLS/HR Digoxin (Lanoxin) 250 mcg 1X ONCE 07/31/19 00:30 07/31/19 00:31 DC 07/31/19 00:12 250 MCG Diltiazem HCl (Cardizem Iv Push) 10 mg 1X ONCE 07/30/19 18:00 07/30/19 18:01 DC 07/30/19 18:01 10 MG Diltiazem HCl 125 mg/Sodium Chloride 125 ml @ 5 mls/hr CONT PRN 07/31/19 01:00 08/01/19 03:03 5 MLS/HR Dobutamine HCl/ Dextrose 250 ml @ 0 mls/hr CONT PRN 07/31/19 15:00 UNV Etomidate (Amidate) 20 mg 1X ONCE 07/30/19 23:45 07/30/19 23:46 DC 07/30/19 19:27 20 MG Famotidine (Pepcid Vial) 20 mg BID 07/31/19 21:00 UNV Fentanyl Citrate (Fentanyl 2ml Vial) 50 mcg PRN Q5MIN PRN 08/04/19 07:00 08/05/19 06:59 DC Furosemide (Lasix) 40 mg 1X ONCE 08/01/19 22:30 08/01/19 22:31 DC 08/01/19 22:14 40 MG Heparin Sodium (Porcine) (Heparin Sodium) 2,200 unit PRN Q6HRS PRN 07/30/19 20:45 08/01/19 15:42 2,200 UNIT Heparin Sodium/ Dextrose 250 ml @ 0 mls/hr CONT PRN 07/31/19 00:00 UNV Info (Anti-Coagulation Monitoring By Pharmacy) 1 each PRN DAILY PRN 07/30/19 21:00 08/04/19 15:55 1 EACH Info (PHARMACY MONITORING -- do not chart) 1 each PRN DAILY PRN 08/05/19 20:30 UNV Lidocaine HCl (Buffered Lidocaine 1%) 3 ml 1X ONCE 08/03/19 09:30 08/03/19 09:31 DC 08/03/19 09:28 3 ML Linezolid/Dextrose 300 ml @ 300 mls/hr Q12HR 07/31/19 09:00 08/05/19 08:02 DC 08/04/19 21:02 300 MLS/HR Lorazepam (Ativan Inj) 2 mg STK-MED ONCE 07/30/19 18:14 07/30/19 18:14 DC Meropenem 1 gm/ Sodium Chloride 100 ml @ 200 mls/hr Q12HR 07/31/19 09:00 08/05/19 21:00 200 MLS/HR Metoprolol Tartrate (Lopressor Vial) 5 mg Q6HRS 08/05/19 18:00 08/06/19 06:05 5 MG Micafungin Sodium 100 mg/Dextrose 100 ml @ 100 mls/hr Q24H 07/31/19 08:00 08/05/19 10:16 100 MLS/HR Midazolam HCl 50 mg/Sodium Chloride 50 ml @ 0 mls/hr CONT PRN 07/31/19 00:15 08/06/19 06:48 7 MLS/HR Morphine Sulfate (Morphine Sulfate) 4 mg PRN Q1HR PRN 07/30/19 19:15 07/31/19 00:11 DC Multivitamins/ Minerals Therapeutic (Centrum Multivit-Mineral Liq) 5 ml DAILY 08/03/19 12:00 08/05/19 10:16 5 ML Norepinephrine Bitartrate 8 mg/ Dextrose 258 ml @ 0 mls/hr CONT PRN 07/30/19 19:00 07/31/19 08:04 DC Ondansetron HCl (Zofran) 4 mg PRN Q6HRS PRN 08/04/19 07:00 08/05/19 06:59 DC Oseltamivir Phosphate (Tamiflu) 30 mg BID 07/31/19 09:00 08/05/19 08:59 DC 08/04/19 21:02 30 MG Piperacillin Sod/ Tazobactam Sod 4.5 gm/Sodium Chloride 100 ml @ 200 mls/hr 1X ONCE 07/30/19 19:00 07/31/19 08:04 DC 07/30/19 19:06 200 MLS/HR Potassium Bicarbonate (Potassium Effervescent Tablet) 20 meq 1X ONCE 08/01/19 22:30 08/01/19 22:31 DC 08/01/19 22:14 20 MEQ Potassium Chloride/Water 100 ml @ 100 mls/hr Q1H 07/30/19 19:30 07/30/19 21:29 DC 07/30/19 21:31 100 MLS/HR Prochlorperazine (Compazine) 25 mg PRN Q12HR PRN 07/31/19 15:00 Prochlorperazine Edisylate (Compazine) 5 mg PACU PRN PRN 08/04/19 07:00 08/05/19 06:59 DC Ringer's Solution 1,000 ml @ 30 mls/hr Q24H 08/04/19 07:00 08/04/19 18:59 DC Rocuronium [place] (Zemuron) 50 mg 1X ONCE 07/30/19 23:45 07/30/19 23:46 DC 07/30/19 19:28 50 MG Sodium Bicarbonate 100 meq/Dextrose 1,100 ml @ 75 mls/hr 1X ONCE 07/30/19 23:00 07/31/19 13:39 DC 07/31/19 01:54 75 MLS/HR Sodium Chloride (Normal Saline Flush) 10 ml 1X PRN PRN 08/05/19 16:00 08/06/19 15:59 Thiamine Mononitrate (Vitamin B-1) 100 mg DAILY 08/06/19 09:00 Thiamine HCl 100 mg/Dextrose 51 ml @ 102 mls/hr DAILY 07/31/19 17:00 08/05/19 23:00 DC 08/05/19 10:15 102 MLS/HR Vancomycin HCl (Vanco Per Pharmacy) 1 each PRN DAILY PRN 07/31/19 02:30 07/31/19 08:06 DC 07/31/19 03:30 1 EACH Vancomycin HCl (Vancomycin Trough Level) 1 each 1X ONCE 08/01/19 07:30 08/01/19 07:31 Cancel Vancomycin HCl 1.25 gm/Sodium Chloride 250 ml @ 167 mls/hr Q12H 07/31/19 08:00 07/31/19 08:06 DC 07/31/19 07:57 167 MLS/HR Vancomycin HCl 2 gm/Sodium Chloride 500 ml @ 250 mls/hr 1X ONCE 07/30/19 19:15 07/30/19 21:14 DC 07/30/19 20:15 250 MLS/HR Vitamin A/Vitamin D (Vitamin A & D Ointment) 1 [place]ton PRN Q1HR PRN 07/31/19 16:45 08/03/19 08:14 1 [place] Lab Laboratory Tests Test 08/05/19 11:09 08/06/19 06:00 Heparin Anti-Xa Act, Unfractionated 0.33 IU/mL (0.30-0.70) 0.22 IU/mL (0.30-0.70) White Blood Count 14.6 x10^3/uL (4.0-11.0) Red Blood Count 3.72 x10^6/uL (4.30-5.70) Hemoglobin 11.9 g/dL (13.0-17.5) Hematocrit 35.2 % (39.0-53.0) Mean Corpuscular Volume 95 fL (79-100) Mean Corpuscular Hemoglobin 32 pg (25-35) Mean Corpuscular Hemoglobin Concent 34 g/dL (31-37) Red Cell Distribution Width 14.0 % (11.5-14.5) Platelet Count 247 x10^3/uL (140-400) Neutrophils (%) (Auto) 81 % (31-73) Lymphocytes (%) (Auto) 11 % (24-48) Monocytes (%) (Auto) 4 % (0-9) Eosinophils (%) (Auto) 3 % (0-3) Basophils (%) (Auto) 1 % (0-3) Neutrophils # (Auto) 11.8 x10^3/uL (1.8-7.7) Lymphocytes # (Auto) 1.7 x10^3/uL (1.0-4.8) Monocytes # (Auto) 0.6 x10^3/uL (0.0-1.1) Eosinophils # (Auto) 0.4 x10^3/uL (0.0-0.7) Basophils # (Auto) 0.1 x10^3/uL (0.0-0.2) Sodium Level 139 mmol/L (136-145) Potassium Level 4.2 mmol/L (3.5-5.1) Chloride Level 103 mmol/L (98-107) Carbon Dioxide Level 28 mmol/L (21-32) Anion Gap 8 (6-14) Blood Urea Nitrogen 59 mg/dL (8-26) Creatinine 2.5 mg/dL (0.7-1.3) Estimated GFR (Cockcroft-Gault) 26.0 Glucose Level 99 mg/dL (70-99) Calcium Level 8.5 mg/dL (8.5-10.1) Results All relevant outside records, renal labs, imaging studies, telemetry/EKG's were reviewed. JOSE DAVID ANTON MD Aug 06, 2019 08:15
[2019-08-06] MEDS: MEROPENEM 1 GM in IV NORMAL SALINE 100ML 100 ML IV SCH ×2 (08:22→21:19)
[2019-08-06] MEDS: MICAFUNGIN 100 MG in IV DEXTROSE 5% 100ML 100 ML IV SCH (08:22)
[2019-08-06 08:41] LABS: FIO2 ABG 40%VENT
--- NOTE | 2019-08-06 09:11 | PDOC ---
Provider Note Provider Note Vascular Patient remains sedated on vent Discussed plan of care with RN Gangrene right 4th toe Recommend right 4th toe amputation. Family refuses to give consent for toe amputation Plan for possible extubation today, will try to obtain consent from patient when he is awake and able to make decisions. MARGY LEE APRN Aug 06, 2019 09:11
--- NOTE | 2019-08-06 09:47 | PDOC ---
PULMONARY PROGRESS NOTES Subjective SEDATED ON AC MODE Vitals Vital Signs Date Time Temp Pulse Resp B/P (MAP) Pulse Ox O2 Delivery O2 Flow Rate FiO2 08/06/19 09:14 97 Ventilator 08/06/19 09:00 94 23 174/78 (110) 08/06/19 08:00 99.2 99.2 08/06/19 06:48 80.0 Lungs: Clear Cardiovascular: S1, S2 Abdomen: Soft Extremities: Other (PVD) Skin: Warm Labs Laboratory Tests Test 08/04/19 11:16 08/05/19 05:00 08/05/19 08:00 08/05/19 11:09 Heparin Anti-Xa Act, Unfractionated 1.04 IU/mL (0.30-0.70) 0.42 IU/mL (0.30-0.70) 0.33 IU/mL (0.30-0.70) White Blood Count 11.7 x10^3/uL (4.0-11.0) Red Blood Count 3.53 x10^6/uL (4.30-5.70) Hemoglobin 11.4 g/dL (13.0-17.5) Hematocrit 33.7 % (39.0-53.0) Mean Corpuscular Volume 96 fL (79-100) Mean Corpuscular Hemoglobin 32 pg (25-35) Mean Corpuscular Hemoglobin Concent 34 g/dL (31-37) Red Cell Distribution Width 13.9 % (11.5-14.5) Platelet Count 254 x10^3/uL (140-400) Neutrophils (%) (Auto) 81 % (31-73) Lymphocytes (%) (Auto) 12 % (24-48) Monocytes (%) (Auto) 4 % (0-9) Eosinophils (%) (Auto) 3 % (0-3) Basophils (%) (Auto) 1 % (0-3) Neutrophils # (Auto) 9.4 x10^3/uL (1.8-7.7) Lymphocytes # (Auto) 1.4 x10^3/uL (1.0-4.8) Monocytes # (Auto) 0.5 x10^3/uL (0.0-1.1) Eosinophils # (Auto) 0.3 x10^3/uL (0.0-0.7) Basophils # (Auto) 0.1 x10^3/uL (0.0-0.2) Sodium Level 139 mmol/L (136-145) Potassium Level 3.8 mmol/L (3.5-5.1) Chloride Level 102 mmol/L (98-107) Carbon Dioxide Level 27 mmol/L (21-32) Anion Gap 10 (6-14) Blood Urea Nitrogen 80 mg/dL (8-26) Creatinine 3.5 mg/dL (0.7-1.3) Estimated GFR (Cockcroft-Gault) 17.6 BUN/Creatinine Ratio 23 (6-20) Glucose Level 96 mg/dL (70-99) Calcium Level 8.2 mg/dL (8.5-10.1) Total Bilirubin 1.5 mg/dL (0.2-1.0) Aspartate Amino Transf (AST/SGOT) 59 U/L (15-37) Alanine Aminotransferase (ALT/SGPT) 13 U/L (16-63) Alkaline Phosphatase 80 U/L (46-116) Total Protein 6.4 g/dL (6.4-8.2) Albumin 2.1 g/dL (3.4-5.0) Albumin/Globulin Ratio 0.5 (1.0-1.7) O2 Saturation 97 % (92-99) Arterial Blood pH 7.38 (7.35-7.45) Arterial Blood pCO2 at Patient Temp 45 mmHg (35-46) Arterial Blood pO2 at Patient Temp 102 mmHg (65-108) Arterial Blood HCO3 26 mmol/L (21-28) Arterial Blood Base Excess 1 mmol/L (-3-3) FiO2 40 Test 08/06/19 06:00 08/06/19 08:00 White Blood Count 14.6 x10^3/uL (4.0-11.0) Red Blood Count 3.72 x10^6/uL (4.30-5.70) Hemoglobin 11.9 g/dL (13.0-17.5) Hematocrit 35.2 % (39.0-53.0) Mean Corpuscular Volume 95 fL (79-100) Mean Corpuscular Hemoglobin 32 pg (25-35) Mean Corpuscular Hemoglobin Concent 34 g/dL (31-37) Red Cell Distribution Width 14.0 % (11.5-14.5) Platelet Count 247 x10^3/uL (140-400) Neutrophils (%) (Auto) 81 % (31-73) Lymphocytes (%) (Auto) 11 % (24-48) Monocytes (%) (Auto) 4 % (0-9) Eosinophils (%) (Auto) 3 % (0-3) Basophils (%) (Auto) 1 % (0-3) Neutrophils # (Auto) 11.8 x10^3/uL (1.8-7.7) Lymphocytes # (Auto) 1.7 x10^3/uL (1.0-4.8) Monocytes # (Auto) 0.6 x10^3/uL (0.0-1.1) Eosinophils # (Auto) 0.4 x10^3/uL (0.0-0.7) Basophils # (Auto) 0.1 x10^3/uL (0.0-0.2) Heparin Anti-Xa Act, Unfractionated 0.22 IU/mL (0.30-0.70) Sodium Level 139 mmol/L (136-145) Potassium Level 4.2 mmol/L (3.5-5.1) Chloride Level 103 mmol/L (98-107) Carbon Dioxide Level 28 mmol/L (21-32) Anion Gap 8 (6-14) Blood Urea Nitrogen 59 mg/dL (8-26) Creatinine 2.5 mg/dL (0.7-1.3) Estimated GFR (Cockcroft-Gault) 26.0 Glucose Level 99 mg/dL (70-99) Calcium Level 8.5 mg/dL (8.5-10.1) O2 Saturation 98 % (92-99) Arterial Blood pH 7.44 (7.35-7.45) Arterial Blood pCO2 at Patient Temp 38 mmHg (35-46) Arterial Blood pO2 at Patient Temp 103 mmHg (65-108) Arterial Blood HCO3 25 mmol/L (21-28) Arterial Blood Base Excess 1 mmol/L (-3-3) FiO2 40%vent Laboratory Tests Test 08/05/19 11:09 08/06/19 06:00 08/06/19 08:00 Heparin Anti-Xa Act, Unfractionated 0.33 IU/mL (0.30-0.70) 0.22 IU/mL (0.30-0.70) White Blood Count 14.6 x10^3/uL (4.0-11.0) Red Blood Count 3.72 x10^6/uL (4.30-5.70) Hemoglobin 11.9 g/dL (13.0-17.5) Hematocrit 35.2 % (39.0-53.0) Mean Corpuscular Volume 95 fL (79-100) Mean Corpuscular Hemoglobin 32 pg (25-35) Mean Corpuscular Hemoglobin Concent 34 g/dL (31-37) Red Cell Distribution Width 14.0 % (11.5-14.5) Platelet Count 247 x10^3/uL (140-400) Neutrophils (%) (Auto) 81 % (31-73) Lymphocytes (%) (Auto) 11 % (24-48) Monocytes (%) (Auto) 4 % (0-9) Eosinophils (%) (Auto) 3 % (0-3) Basophils (%) (Auto) 1 % (0-3) Neutrophils # (Auto) 11.8 x10^3/uL (1.8-7.7) Lymphocytes # (Auto) 1.7 x10^3/uL (1.0-4.8) Monocytes # (Auto) 0.6 x10^3/uL (0.0-1.1) Eosinophils # (Auto) 0.4 x10^3/uL (0.0-0.7) Basophils # (Auto) 0.1 x10^3/uL (0.0-0.2) Sodium Level 139 mmol/L (136-145) Potassium Level 4.2 mmol/L (3.5-5.1) Chloride Level 103 mmol/L (98-107) Carbon Dioxide Level 28 mmol/L (21-32) Anion Gap 8 (6-14) Blood Urea Nitrogen 59 mg/dL (8-26) Creatinine 2.5 mg/dL (0.7-1.3) Estimated GFR (Cockcroft-Gault) 26.0 Glucose Level 99 mg/dL (70-99) Calcium Level 8.5 mg/dL (8.5-10.1) O2 Saturation 98 % (92-99) Arterial Blood pH 7.44 (7.35-7.45) Arterial Blood pCO2 at Patient Temp 38 mmHg (35-46) Arterial Blood pO2 at Patient Temp 103 mmHg (65-108) Arterial Blood HCO3 25 mmol/L (21-28) Arterial Blood Base Excess 1 mmol/L (-3-3) FiO2 40%vent Medications Active Scripts Medications Dose Route/Sig Max Daily Dose Days Date Category Proair Hfa (Albuterol Sulfate) 8.5 Gm Hfa.aer.ad 2 Puff IH PRN Q4-6HRS PRN 21 07/25/19 Rx Tessalon Perle (Benzonatate) 100 Mg Capsule 1 Cap PO TID 07/25/19 Rx Prednisone 50 Mg Tablet 1 Tab PO DAILY 07/25/19 Rx Cyclobenzaprine Hcl 5 Mg Tablet 1 Tab PO TID 03/21/17 Rx Ibuprofen 800 Mg Tablet 800 Mg PO Q6-8HRS 03/21/17 Rx Zofran Odt (Ondansetron) 4 Mg Tab.rapdis 1 Tab SL Q8HRS 01/07/17 Rx Ultram (Tramadol Hcl) 50 Mg Tablet 1 Tab PO Q6HRS 01/29/16 Rx Comments CXR 08/05 CHF/ RIGHT EFFUSION Impression . IMPRESSION: 1. Acute hypoxemic respiratory failure. MULTIFACTORIAL 2. Sepsis. 3. Pneumonia, suspect gram-negative, possibly gram-positive. 4. Influenza A. 5. New onset atrial fibrillation. 6. Peripheral vascular disease with possible peripheral emboli. 7. Metabolic acidosis. 8. Acute renal failure. 9. Severe protein malnutrition, present upon admission. 10. Elevated total bilirubin. 11. Abnormal cxr/ CHF Plan . AC MODE D/W RN. NO CONSENT AVAILABLE FOR SURGERY DC SEDATIOIN/ ASSESS FOR CPAP TRIAL WILL TRY TO EXTUBATE AND GET CONSENT WILL CONTINUE SUPPORT HD/ UF D/W RENAL ANTI BX PER ID CXR REVIEWED SURGERY PLANNED ONCE CONSENT DONE IV HEPARIN ANTI BX ABG NOTED INEZ BARRIOS MD Aug 06, 2019 09:47
[2019-08-06 10:13] LABS: % EOS 2 % (0-5); % MONOS 8 % (0-10); % SEGS 70 % (35-66); PLT ESTIMATE ADEQUATE (ADEQUATE)
[2019-08-06 10:16] LABS: % METAS 2 % (0-0)
[2019-08-06 10:20] LABS: % LYMPHS 17 % (24-48); % MYELOS 1 % (0-0)
[2019-08-06 10:21] LABS: ANISOCYTOSIS SLIGHT
[2019-08-06] MEDS: MULTIVITAMINS,THERAPEUTIC 5 ML ORAL LIQUID. PEG SCH (10:26)
[2019-08-06] MEDS: CHLORHEXIDINE 0.12% 15 ML MOUTHWASH. MM SCH ×2 (10:26→21:19)
[2019-08-06] MEDS: THIAMINE 100 MG TABLET. PEG SCH (10:26)
--- NOTE | 2019-08-06 10:34 | PDOC ---
PROGRESS NOTES History of Present Illness History of Present Illness VTE Prophylaxis Ordered VTE Prophylaxis Devices: Contraindicated VTE Pharmacological Prophylaxi: Yes Assessment/Plan Assessment/Plan impression 1. ACUTE HYPOXIC RESPIRATORY FAILURE 2. INFLUENZA A 3. Sepsis 4, PNA (pneumonia) 5. Altered mental status 6. ischemic right 4th toe 7. SONIA 8. a fib rvr 9. severe sepsis 10. homeless, self neglect due to lack of funds 11. right foot with LARGE LATERAL bullous lesion/gangrene plan admit ICU BED CONSULT PULM CONSULT ID Daptomycin and Merrem and Tamiflu renally dosed Zyvox Micafungin, for groin dermatitis, // yeast. VENT SUPPORT CONSULT NEUROLOGY dvt prophylaxis vascular surgery FOLLOWING Nephrology consult cardiology consult cardizem drip Let the tissues demarcate and possibly areas heal. . Will continue heparin drip and Rooke boots. GUARDED PROGNOSIS 31 min cc time Vitals Vitals Vital Signs Date Time Temp Pulse Resp B/P (MAP) Pulse Ox O2 Delivery O2 Flow Rate FiO2 08/06/19 10:00 95 22 158/74 (102) 98 Ventilator 08/06/19 08:00 99.2 99.2 08/06/19 06:48 80.0 Physical Exam Physical Exam GENERAL: Sedated, orally intubated/vent HEENT: Pupils equal, ETT and OGT in place. NECK: Supple. LUNGS: Diminished aeration bases HEART: S1, S2, irregular rhythm. 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 Rooke boots bilat erally DERMATOLOGIC: No generalized rash. NEUROLOGIC: Sedated and intubated. RIJ without signs of complications . R HD cath (08/02) PIVs General: Other (intubated) Heart: Other (irregular rhythm) Lungs: Clear Abdomen: Normal bowel sounds Extremities: No cyanosis, Other (ischemic right 4th toe) Skin: Other (right 4th toe lesion) Labs LABS INDICATION: Respiratory failure. COMPARISON STUDY: 08/05/2019. FINDINGS: Life Support Devices: Stable endotracheal tube, enteric tube, right IJ dual-lumen catheter, and right IJ central venous catheter. Lungs: Normal lung volume. Stable patchy bilateral basilar predominant opacities. Stable pulmonary vasculature. Pleura: Stable small bilateral pleural effusions. Heart and Mediastinum: Stable cardiomediastinal silhouette and great vessels. IMPRESSION: 1. Stable life support devices. 2. Stable basilar predominant opacities. 3. Stable small bilateral effusions. Electronically signed by: Yair Negron MD (08/06/2019 8:06 AM) [id number] DICTATED and SIGNED BY: YAIR NEGRON MD Laboratory Tests Test 08/05/19 11:09 08/06/19 06:00 08/06/19 08:00 Heparin Anti-Xa Act, Unfractionated 0.33 IU/mL (0.30-0.70) 0.22 IU/mL (0.30-0.70) White Blood Count 14.6 x10^3/uL (4.0-11.0) Red Blood Count 3.72 x10^6/uL (4.30-5.70) Hemoglobin 11.9 g/dL (13.0-17.5) Hematocrit 35.2 % (39.0-53.0) Mean Corpuscular Volume 95 fL (79-100) Mean Corpuscular Hemoglobin 32 pg (25-35) Mean Corpuscular Hemoglobin Concent 34 g/dL (31-37) Red Cell Distribution Width 14.0 % (11.5-14.5) Platelet Count 247 x10^3/uL (140-400) Neutrophils (%) (Auto) 81 % (31-73) Lymphocytes (%) (Auto) 11 % (24-48) Monocytes (%) (Auto) 4 % (0-9) Eosinophils (%) (Auto) 3 % (0-3) Basophils (%) (Auto) 1 % (0-3) Neutrophils # (Auto) 11.8 x10^3/uL (1.8-7.7) Lymphocytes # (Auto) 1.7 x10^3/uL (1.0-4.8) Monocytes # (Auto) 0.6 x10^3/uL (0.0-1.1) Eosinophils # (Auto) 0.4 x10^3/uL (0.0-0.7) Basophils # (Auto) 0.1 x10^3/uL (0.0-0.2) Segmented Neutrophils % 70 % (35-66) Lymphocytes % 17 % (24-48) Monocytes % 8 % (0-10) Eosinophils % 2 % (0-5) Metamyelocytes % 2 % (0-0) Myelocytes % 1 % (0-0) Platelet Estimate Adequate (ADEQUATE) Anisocytosis Slight Sodium Level 139 mmol/L (136-145) Potassium Level 4.2 mmol/L (3.5-5.1) Chloride Level 103 mmol/L (98-107) Carbon Dioxide Level 28 mmol/L (21-32) Anion Gap 8 (6-14) Blood Urea Nitrogen 59 mg/dL (8-26) Creatinine 2.5 mg/dL (0.7-1.3) Estimated GFR (Cockcroft-Gault) 26.0 Glucose Level 99 mg/dL (70-99) Calcium Level 8.5 mg/dL (8.5-10.1) O2 Saturation 98 % (92-99) Arterial Blood pH 7.44 (7.35-7.45) Arterial Blood pCO2 at Patient Temp 38 mmHg (35-46) Arterial Blood pO2 at Patient Temp 103 mmHg (65-108) Arterial Blood HCO3 25 mmol/L (21-28) Arterial Blood Base Excess 1 mmol/L (-3-3) FiO2 40%vent Assessment and Plan Assessmemt and Plan Problems Medical Problems: (1) Altered mental status Status: Acute Comment Review of Relevant I have reviewed the following items hay (where applicable) has been applied. Labs Laboratory Tests Test 08/04/19 11:16 08/05/19 05:00 08/05/19 08:00 08/05/19 11:09 Heparin Anti-Xa Act, Unfractionated 1.04 IU/mL (0.30-0.70) 0.42 IU/mL (0.30-0.70) 0.33 IU/mL (0.30-0.70) White Blood Count 11.7 x10^3/uL (4.0-11.0) Red Blood Count 3.53 x10^6/uL (4.30-5.70) Hemoglobin 11.4 g/dL (13.0-17.5) Hematocrit 33.7 % (39.0-53.0) Mean Corpuscular Volume 96 fL (79-100) Mean Corpuscular Hemoglobin 32 pg (25-35) Mean Corpuscular Hemoglobin Concent 34 g/dL (31-37) Red Cell Distribution Width 13.9 % (11.5-14.5) Platelet Count 254 x10^3/uL (140-400) Neutrophils (%) (Auto) 81 % (31-73) Lymphocytes (%) (Auto) 12 % (24-48) Monocytes (%) (Auto) 4 % (0-9) Eosinophils (%) (Auto) 3 % (0-3) Basophils (%) (Auto) 1 % (0-3) Neutrophils # (Auto) 9.4 x10^3/uL (1.8-7.7) Lymphocytes # (Auto) 1.4 x10^3/uL (1.0-4.8) Monocytes # (Auto) 0.5 x10^3/uL (0.0-1.1) Eosinophils # (Auto) 0.3 x10^3/uL (0.0-0.7) Basophils # (Auto) 0.1 x10^3/uL (0.0-0.2) Sodium Level 139 mmol/L (136-145) Potassium Level 3.8 mmol/L (3.5-5.1) Chloride Level 102 mmol/L (98-107) Carbon Dioxide Level 27 mmol/L (21-32) Anion Gap 10 (6-14) Blood Urea Nitrogen 80 mg/dL (8-26) Creatinine 3.5 mg/dL (0.7-1.3) Estimated GFR (Cockcroft-Gault) 17.6 BUN/Creatinine Ratio 23 (6-20) Glucose Level 96 mg/dL (70-99) Calcium Level 8.2 mg/dL (8.5-10.1) Total Bilirubin 1.5 mg/dL (0.2-1.0) Aspartate Amino Transf (AST/SGOT) 59 U/L (15-37) Alanine Aminotransferase (ALT/SGPT) 13 U/L (16-63) Alkaline Phosphatase 80 U/L (46-116) Total Protein 6.4 g/dL (6.4-8.2) Albumin 2.1 g/dL (3.4-5.0) Albumin/Globulin Ratio 0.5 (1.0-1.7) O2 Saturation 97 % (92-99) Arterial Blood pH 7.38 (7.35-7.45) Arterial Blood pCO2 at Patient Temp 45 mmHg (35-46) Arterial Blood pO2 at Patient Temp 102 mmHg (65-108) Arterial Blood HCO3 26 mmol/L (21-28) Arterial Blood Base Excess 1 mmol/L (-3-3) FiO2 40 Test 08/06/19 06:00 08/06/19 08:00 White Blood Count 14.6 x10^3/uL (4.0-11.0) Red Blood Count 3.72 x10^6/uL (4.30-5.70) Hemoglobin 11.9 g/dL (13.0-17.5) Hematocrit 35.2 % (39.0-53.0) Mean Corpuscular Volume 95 fL (79-100) Mean Corpuscular Hemoglobin 32 pg (25-35) Mean Corpuscular Hemoglobin Concent 34 g/dL (31-37) Red Cell Distribution Width 14.0 % (11.5-14.5) Platelet Count 247 x10^3/uL (140-400) Neutrophils (%) (Auto) 81 % (31-73) Lymphocytes (%) (Auto) 11 % (24-48) Monocytes (%) (Auto) 4 % (0-9) Eosinophils (%) (Auto) 3 % (0-3) Basophils (%) (Auto) 1 % (0-3) Neutrophils # (Auto) 11.8 x10^3/uL (1.8-7.7) Lymphocytes # (Auto) 1.7 x10^3/uL (1.0-4.8) Monocytes # (Auto) 0.6 x10^3/uL (0.0-1.1) Eosinophils # (Auto) 0.4 x10^3/uL (0.0-0.7) Basophils # (Auto) 0.1 x10^3/uL (0.0-0.2) Segmented Neutrophils % 70 % (35-66) Lymphocytes % 17 % (24-48) Monocytes % 8 % (0-10) Eosinophils % 2 % (0-5) Metamyelocytes % 2 % (0-0) Myelocytes % 1 % (0-0) Platelet Estimate Adequate (ADEQUATE) Anisocytosis Slight Heparin Anti-Xa Act, Unfractionated 0.22 IU/mL (0.30-0.70) Sodium Level 139 mmol/L (136-145) Potassium Level 4.2 mmol/L (3.5-5.1) Chloride Level 103 mmol/L (98-107) Carbon Dioxide Level 28 mmol/L (21-32) Anion Gap 8 (6-14) Blood Urea Nitrogen 59 mg/dL (8-26) Creatinine 2.5 mg/dL (0.7-1.3) Estimated GFR (Cockcroft-Gault) 26.0 Glucose Level 99 mg/dL (70-99) Calcium Level 8.5 mg/dL (8.5-10.1) O2 Saturation 98 % (92-99) Arterial Blood pH 7.44 (7.35-7.45) Arterial Blood pCO2 at Patient Temp 38 mmHg (35-46) Arterial Blood pO2 at Patient Temp 103 mmHg (65-108) Arterial Blood HCO3 25 mmol/L (21-28) Arterial Blood Base Excess 1 mmol/L (-3-3) FiO2 40%vent Laboratory Tests Test 08/05/19 11:09 08/06/19 06:00 08/06/19 08:00 Heparin Anti-Xa Act, Unfractionated 0.33 IU/mL (0.30-0.70) 0.22 IU/mL (0.30-0.70) White Blood Count 14.6 x10^3/uL (4.0-11.0) Red Blood Count 3.72 x10^6/uL (4.30-5.70) Hemoglobin 11.9 g/dL (13.0-17.5) Hematocrit 35.2 % (39.0-53.0) Mean Corpuscular Volume 95 fL (79-100) Mean Corpuscular Hemoglobin 32 pg (25-35) Mean Corpuscular Hemoglobin Concent 34 g/dL (31-37) Red Cell Distribution Width 14.0 % (11.5-14.5) Platelet Count 247 x10^3/uL (140-400) Neutrophils (%) (Auto) 81 % (31-73) Lymphocytes (%) (Auto) 11 % (24-48) Monocytes (%) (Auto) 4 % (0-9) Eosinophils (%) (Auto) 3 % (0-3) Basophils (%) (Auto) 1 % (0-3) Neutrophils # (Auto) 11.8 x10^3/uL (1.8-7.7) Lymphocytes # (Auto) 1.7 x10^3/uL (1.0-4.8) Monocytes # (Auto) 0.6 x10^3/uL (0.0-1.1) Eosinophils # (Auto) 0.4 x10^3/uL (0.0-0.7) Basophils # (Auto) 0.1 x10^3/uL (0.0-0.2) Segmented Neutrophils % 70 % (35-66) Lymphocytes % 17 % (24-48) Monocytes % 8 % (0-10) Eosinophils % 2 % (0-5) Metamyelocytes % 2 % (0-0) Myelocytes % 1 % (0-0) Platelet Estimate Adequate (ADEQUATE) Anisocytosis Slight Sodium Level 139 mmol/L (136-145) Potassium Level 4.2 mmol/L (3.5-5.1) Chloride Level 103 mmol/L (98-107) Carbon Dioxide Level 28 mmol/L (21-32) Anion Gap 8 (6-14) Blood Urea Nitrogen 59 mg/dL (8-26) Creatinine 2.5 mg/dL (0.7-1.3) Estimated GFR (Cockcroft-Gault) 26.0 Glucose Level 99 mg/dL (70-99) Calcium Level 8.5 mg/dL (8.5-10.1) O2 Saturation 98 % (92-99) Arterial Blood pH 7.44 (7.35-7.45) Arterial Blood pCO2 at Patient Temp 38 mmHg (35-46) Arterial Blood pO2 at Patient Temp 103 mmHg (65-108) Arterial Blood HCO3 25 mmol/L (21-28) Arterial Blood Base Excess 1 mmol/L (-3-3) FiO2 40%vent Microbiology 08/02/19 Blood Culture - Preliminary, Resulted NO GROWTH AFTER 4 DAYS 07/31/19 - Final, Complete 07/31/19 - Final, Complete 07/31/19 - Final, Complete 07/31/19 Gram Stain Evaluation - Final, Complete 07/31/19 Sputum Culture - Final, Complete 07/31/19 Sputum Result 1 - Final, Complete 07/30/19 Urine Culture - Final, Complete 07/30/19 Urine Culture Result 1 (SONIA) - Final, Complete Medications Current Medications Albuterol/ Ipratropium (Duoneb) 3 ml 1X ONCE NEB Last administered on 07/30/19at 18:00; Start 07/30/19 at 18:00; Stop 07/30/19 at 18:01; Status DC Albuterol Sulfate (Ventolin Neb Soln) 10 mg 1X ONCE CONT NEB Last administered on 07/30/19at 18:00; Start 07/30/19 at 18:00; Stop 07/30/19 at 18:01; Status DC Morphine Sulfate (Morphine Sulfate) 2 mg PRN Q15MIN PRN IV/SQ PAIN GREATER THAN 3/10 Last administered on 07/30/19at 18:08; Start 07/30/19 at 18:00; Stop 07/31/19 at 00:10; Status DC Diltiazem HCl (Cardizem Iv Push) 10 mg 1X ONCE IVP Last administered on 07/30/19at 18:01; Start 07/30/19 at 18:00; Stop 07/30/19 at 18:01; Status DC Diltiazem HCl 125 mg/Sodium Chloride 125 ml @ 5 mls/hr 1X ONCE IV Last administered on 07/30/19at 18:36; Start 07/30/19 at 18:00; Stop 07/31/19 at 18:59; Status DC Lorazepam (Ativan Inj) 2 mg 1X ONCE IVP Last administered on 07/30/19at 18:35; Start 07/30/19 at 18:15; Stop 07/30/19 at 18:16; Status DC Lorazepam (Ativan Inj) 2 mg STK-MED ONCE .ROUTE ; Start 07/30/19 at 18:14; Stop 07/30/19 at 18:14; Status DC Digoxin (Lanoxin) 250 mcg 1X ONCE IV Last administered on 07/30/19at 18:53; Start 07/30/19 at 18:45; Stop 07/30/19 at 18:46; Status DC Amiodarone HCl 150 mg/Dextrose 103 ml @ 618 mls/hr 1X ONCE IV Last administered on 07/30/19at 20:07; Start 07/30/19 at 18:45; Stop 07/30/19 at 18:54; Status DC Amiodarone HCl 450 mg/Dextrose 259 ml @ 0 mls/hr CONT PRN IV SEE I/O RECORD Last administered on 07/30/19at 20:21; Start 07/30/19 at 18:45 Sodium Chloride 1,000 ml @ 1,000 mls/hr 1X ONCE IV Last administered on 07/30/19at 18:20; Start 07/30/19 at 18:45; Stop 07/31/19 at 02:15; Status DC Sodium Chloride 2,130 ml @ 2,130 mls/hr Q1H IV Last administered on 07/30/19at 19:02; Start 07/30/19 at 18:53; Stop 07/31/19 at 02:15; Status DC Piperacillin Sod/ Tazobactam Sod 4.5 gm/Sodium Chloride 100 ml @ 200 mls/hr 1X ONCE IV Last administered on 07/30/19at 19:06; Start 07/30/19 at 19:00; Stop 07/31/19 at 08:04; Status DC Vancomycin HCl (Vanco Per Pharmacy) 1 each 1X ONCE MC ; Start 07/30/19 at 19:00; Stop 07/31/19 at 08:04; Status DC Norepinephrine Bitartrate 8 mg/ Dextrose 258 ml @ 0 mls/hr CONT PRN IV PER PROTOCOL; Start 07/30/19 at 19:00; Stop 07/31/19 at 08:04; Status DC Potassium Chloride/Water 100 ml @ 100 mls/hr Q1H IV Last administered on 07/30/19at 21:31; Start 07/30/19 at 19:30; Stop 07/30/19 at 21:29; Status DC Vancomycin HCl 2 gm/Sodium Chloride 500 ml @ 250 mls/hr 1X ONCE IV Last administered on 07/30/19at 20:15; Start 07/30/19 at 19:15; Stop 07/30/19 at 21:14; Status DC Fentanyl Citrate (Fentanyl 2ml Vial) 25 mcg PRN Q1HR PRN IV SEE COMMENTS; Start 07/30/19 at 19:15; Stop 07/31/19 at 00:11; Status DC Fentanyl Citrate (Fentanyl 2ml Vial) 50 mcg PRN Q1HR PRN IV SEE COMMENTS; Start 07/30/19 at 19:15; Stop 07/31/19 at 00:11; Status DC Chlorhexidine Gluconate (Peridex) 15 ml BID MM Last administered on 08/06/19at 10:26; Start 07/30/19 at 21:00 Morphine Sulfate (Morphine Sulfate) 2 mg PRN Q1HR PRN IV SEE COMMENTS.; Start 07/30/19 at 19:15; Stop 07/31/19 at 00:11; Status DC Morphine Sulfate (Morphine Sulfate) 4 mg PRN Q1HR PRN IV SEE COMMENTS.; Start 07/30/19 at 19:15; Stop 07/31/19 at 00:11; Status DC Midazolam HCl 50 mg/Sodium Chloride 50 ml @ 0 mls/hr CONT PRN IV SEE PROTOCOL Last administered on 07/30/19at 20:40; Start 07/30/19 at 19:15; Stop 07/31/19 at 00:10; Status DC Acetaminophen (Tylenol Supp) 650 mg 1X ONCE AL Last administered on 07/30/19at 20:49; Start 07/30/19 at 20:15; Stop 07/30/19 at 20:16; Status DC Ondansetron HCl (Zofran) 4 mg PRN Q8HRS PRN IV NAUSEA/VOMITING; Start 07/30/19 at 20:30; Stop 07/31/19 at 20:29; Status DC Acetaminophen (Tylenol) 650 mg PRN Q4HRS PRN PO FEVER Last administered on 07/31/19at 12:49; Start 07/30/19 at 20:30; Stop 07/31/19 at 20:29; Status DC Heparin Sodium/ Dextrose 250 ml @ 0 mls/hr CONT PRN IV PER PROTOCOL Last administered on 08/06/19at 05:06; Start 07/30/19 at 20:45 Heparin Sodium (Porcine) (Heparin Sodium) 2,200 unit PRN Q6HRS PRN IV FOR UFH LEVEL LESS THAN 0.2 Last administered on 08/01/19at 15:42; Start 07/30/19 at 20: 45 Info (Anti-Coagulation Monitoring By Pharmacy) 1 each PRN DAILY PRN MC SEE COMMENTS Last administered on 08/04/19at 15:55; Start 07/30/19 at 21:00 Etomidate (Amidate) 20 mg STK-MED ONCE IV ; Start 07/30/19 at 21:15; Stop 07/30/19 at 21:16; Status DC Rocuronium Varney (Zemuron) 50 mg STK-MED ONCE .ROUTE ; Start 07/30/19 at 21:16; Stop 07/30/19 at 21:16; Status DC Diltiazem HCl 125 mg/Sodium Chloride 125 ml @ 5 mls/hr CONT PRN IV SEE I/O RECORD; Start 07/30/19 at 22:30; Stop 07/31/19 at 06:01; Status DC Sodium Bicarbonate 100 meq/Dextrose 1,100 ml @ 75 mls/hr 1X ONCE IV Last administered on 07/31/19at 01:54; Start 07/30/19 at 23:00; Stop 07/31/19 at 13:39; Status DC Etomidate (Amidate) 20 mg 1X ONCE IV Last administered on 07/30/19at 19:27; Start 07/30/19 at 23:45; Stop 07/30/19 at 23:46; Status DC Rocuronium Varney (Zemuron) 50 mg 1X ONCE IV Last administered on 07/30/19at 19:28; Start 07/30/19 at 23:45; Stop 07/30/19 at 23:46; Status DC Rocuronium Varney (Zemuron) 50 mg 1X ONCE IV Last administered on 07/30/19at 19:28; Start 07/30/19 at 23:45; Stop 07/30/19 at 23:46; Status DC Digoxin (Lanoxin) 250 mcg 1X ONCE IV Last administered on 07/31/19at 00:12; Start 07/31/19 at 00:30; Stop 07/31/19 at 00:31; Status DC Heparin Sodium/ Dextrose 250 ml @ 0 mls/hr CONT PRN IV SEE I/O RECORD; Start 07/31/19 at 00:00; Status UNV Fentanyl Citrate 30 ml @ 0 mls/hr CONT PRN IV SEE PROTOCOL Last administered on 08/06/19at 06:48; Start 07/31/19 at 00:15 Midazolam HCl 50 mg/Sodium Chloride 50 ml @ 0 mls/hr CONT PRN IV SEE PROTOCOL Last administered on 08/06/19at 06:48; Start 07/31/19 at 00:15 Diltiazem HCl 125 mg/Sodium Chloride 125 ml @ 5 mls/hr CONT PRN IV SEE I/O RECORD Last administered on 08/01/19at 03:03; Start 07/31/19 at 01:00 Albuterol/ Ipratropium (Duoneb) 3 ml Q4HRS NEB Last administered on 08/06/19at 08:10; Start 07/31/19 at 04:00 Sodium Chloride 1,000 ml @ 120 mls/hr Q8H20M IV Last administered on 07/31/19at 02:30; Start 07/31/19 at 02:30; Stop 07/31/19 at 13:55; Status DC Vancomycin HCl (Vanco Per Pharmacy) 1 each PRN DAILY PRN MC SEE COMMENTS Last administered on 07/31/19at 03:30; Start 07/31/19 at 02:30; Stop 07/31/19 at 0 8:06; Status DC Vancomycin HCl 1.25 gm/Sodium Chloride 250 ml @ 167 mls/hr Q12H IV Last administered on 07/31/19at 07:57; Start 07/31/19 at 08:00; Stop 07/31/19 at 08:06; Status DC Vancomycin HCl (Vancomycin Trough Level) 1 each 1X ONCE MC ; Start 08/01/19 at 07:30; Stop 08/01/19 at 07:31; Status Cancel Micafungin Sodium 100 mg/Dextrose 100 ml @ 100 mls/hr Q24H IV Last admin istered on 08/06/19at 08:22; Start 07/31/19 at 08:00 Oseltamivir Phosphate (Tamiflu) 30 mg BID PO Last administered on 08/04/19at 2 1:02; Start 07/31/19 at 09:00; Stop 08/05/19 at 08:59; Status DC Linezolid/Dextrose 300 ml @ 300 mls/hr Q12HR IV Last administered on 08/04/19at 21:02; Start 07/31/19 at 09:00; Stop 08/05/19 at 08:02; Status DC Daptomycin 490 mg/ Sodium Chloride 50 ml @ 100 mls/hr Q24H IV Last administered on 07/31/19at 12:40; Start 07/31/19 at 10:00; Stop 08/01/19 at 09:01; Status DC Meropenem 1 gm/ Sodium Chloride 100 ml @ 200 mls/hr Q12HR IV Last administered on 08/06/19at 08:22; Start 07/31/19 at 09:00 Potassium Bicarbonate (Potassium Effervescent Tablet) 40 meq 1X ONCE PEG Last administered on 07/31/19at 10:54; Start 07/31/19 at 10:30; Stop 07/31/19 at 10:43; Status DC Famotidine (Pepcid Vial) 20 mg QHS IVP Last administered on 08/05/19at 21:00; Start 07/31/19 at 21:00 Albumin Human 100 ml @ 100 mls/hr TID IV Last administered on 08/02/19at 09:44; Start 07/31/19 at 14:30; Stop 08/02/19 at 09:59; Status DC Sodium Chloride 2,340 ml @ 2,340 mls/hr Q1H IV ; Start 07/31/19 at 14:48; Status UNV Sodium Chloride 500 ml @ 1,000 mls/hr PRN Q30MIN PRN IV SEE COMMENTS; Start 07/31/19 at 15:00; Status UNV Dobutamine HCl/ Dextrose 250 ml @ 0 mls/hr CONT PRN IV SEE I/O RECORD; Start 07/31/19 at 15:00; Status UNV Ondansetron HCl (Zofran) 4 mg PRN Q6HRS PRN IV NAUSEA/VOMITING; Start 07/31/19 at 15:00 Prochlorperazine (Compazine) 25 mg PRN Q12HR PRN AL NAUSEA/VOMITING; Start 07/31/19 at 15:00 Famotidine (Pepcid Vial) 20 mg BID IVP ; Start 07/31/19 at 21:00; Status UNV Sodium Chloride (Normal Saline Flush) 3 ml QSHIFT PRN IV AFTER MEDS AND BLOOD DRAWS; Start 07/31/19 at 15:00 Bisacodyl (Dulcolax Supp) 10 mg PRN DAILY PRN AL CONSTIPATION; Start 07/31/19 at 15:00 Thiamine HCl 100 mg/Dextrose 51 ml @ 102 mls/hr DAILY IV Last administered on 08/05/19at 10:15; Start 07/31/19 at 17:00; Stop 08/05/19 at 23:00; Status DC Vitamin A/Vitamin D (Vitamin A & D Ointment) 1 milton PRN Q1HR PRN TP SKIN PROTECTION Last administered on 08/03/19at 08:14; Start 07/31/19 at 16:45 Daptomycin 490 mg/ Sodium Chloride 50 ml @ 100 mls/hr Q48H IV Last admin istered on 08/03/19at 11:19; Start 08/01/19 at 10:00; Stop 08/04/19 at 07:59; Status DC Furosemide (Lasix) 40 mg 1X ONCE IVP Last administered on 08/01/19at 22:14; Start 08/01/19 at 22:30; Stop 08/01/19 at 22:31; Status DC Potassium Bicarbonate (Potassium Effervescent Tablet) 20 meq 1X ONCE PEG Last administered on 08/01/19at 22:14; Start 08/01/19 at 22:30; Stop 08/01/19 at 22:31; Status DC Lidocaine HCl (Buffered Lidocaine 1%) 3 ml STK-MED ONCE .ROUTE ; Start 08/03/19 at 09:05; Stop 08/03/19 at 09:05; Status DC Lidocaine HCl (Buffered Lidocaine 1%) 3 ml 1X ONCE INJ Last administered on 08/03/19at 09:28; Start 08/03/19 at 09:30; Stop 08/03/19 at 09:31; Status DC Multivitamins/ Minerals Therapeutic (Centrum Multivit-Mineral Liq) 5 ml DAILY PEG Last administered on 08/06/19at 10:26; Start 08/03/19 at 12:00 Sodium Chloride 1,000 ml @ 1,000 mls/hr Q1H PRN IV hypotension; Start 08/03/19 at 13:31; Stop 08/03/19 at 19:30; Status DC Sodium Chloride 1,000 ml @ 400 mls/hr Q2H30M PRN IV PATENCY; Start 08/03/19 at 13:31; Stop 08/04/19 at 01:30; Status DC Info (PHARMACY MONITORING -- do not chart) 1 each PRN DAILY PRN MC SEE COMMENTS; Start 08/03/19 at 13:45; Status UNV Info (PHARMACY MONITORING -- do not chart) 1 each PRN DAILY PRN MC SEE COMMENTS; Start 08/03/19 at 13:45 Ondansetron HCl (Zofran) 4 mg PRN Q6HRS PRN IV NAUSEA/VOMITING; Start 08/04/19 at 07:00; Stop 08/05/19 at 06:59; Status DC Fentanyl Citrate (Fentanyl 2ml Vial) 25 mcg PRN Q5MIN PRN IV MILD PAIN 1-3; Start 08/04/19 at 07:00; Stop 08/05/19 at 06:59; Status DC Fentanyl Citrate (Fentanyl 2ml Vial) 50 mcg PRN Q5MIN PRN IV MODERATE TO SEVERE PAIN; Start 08/04/19 at 07:00; Stop 08/05/19 at 06:59; Status DC Ringer's Solution 1,000 ml @ 30 mls/hr Q24H IV ; Start 08/04/19 at 07:00; Stop 08/04/19 at 18:59; Status DC Prochlorperazine Edisylate (Compazine) 5 mg PACU PRN PRN IV NAUSEA, MRX1; Start 08/04/19 at 07:00; Stop 08/05/19 at 06:59; Status DC Cefazolin Sodium 1 gm/Sodium Chloride 500 ml @ 500 mls/hr 1X ONCE IRR ; Start 08/04/19 at 06:00; Stop 08/04/19 at 06:59; Status DC Metoprolol Tartrate (Lopressor Vial) 5 mg Q6HRS IVP Last administered on 08/06/19at 06:05; Start 08/05/19 at 18:00 Thiamine Mononitrate (Vitamin B-1) 100 mg DAILY PEG Last administered on 08/06/19at 10:26; Start 08/06/19 at 09:00 Sodium Chloride 1,000 ml @ 1,000 mls/hr Q1H PRN IV hypotension; Start 08/05/19 at 16:00; Stop 08/05/19 at 21:59; Status DC Sodium Chloride (Normal Saline Flush) 10 ml 1X PRN PRN IV AP catheter pack; Start 08/05/19 at 16:00; Stop 08/06/19 at 15:59 Sodium Chloride (Normal Saline Flush) 10 ml 1X PRN PRN IV CROP [employer] catheter pack; Start 08/05/19 at 16:00; Stop 08/06/19 at 15:59 Info (PHARMACY MONITORING -- do not chart) 1 each PRN DAILY PRN MC SEE COMMENTS; Start 08/05/19 at 20:30 Info (PHARMACY MONITORING -- do not chart) 1 each PRN DAILY PRN MC SEE COMMENTS; Start 08/05/19 at 20:30; Status UNV Active Scripts Active Proair Hfa (Albuterol Sulfate) 8.5 Gm Hfa.aer.ad 2 Puff IH PRN Q4-6HRS PRN 21 Days Tessalon Perle (Benzonatate) 100 Mg Capsule 1 Cap PO TID Prednisone 50 Mg Tablet 1 Tab PO DAILY Cyclobenzaprine Hcl 5 Mg Tablet 1 Tab PO TID Ibuprofen 800 Mg Tablet 800 Mg PO Q6-8HRS Zofran Odt (Ondansetron) 4 Mg Tab.rapdis 1 Tab SL Q8HRS Ultram (Tramadol Hcl) 50 Mg Tablet 1 Tab PO Q6HRS Vitals/I & O Vital Sign - Last 24 Hours 08/05/19 08/05/19 08/05/19 08/05/19 11:00 11:00 11:30 12:00 Temp 98.8 98.8 Pulse 86 90 Resp 24 B/P (MAP) 138/63 (88) 143/59 (87) Pulse Ox 98 98 98 98 O2 Delivery Ventilator Ventilator O2 Flow Rate 80.0 80.0 08/05/19 08/05/19 08/05/19 08/05/19 12:00 12:00 13:00 13:39 Pulse 90 Resp 26 B/P (MAP) 131/59 (83) Pulse Ox 98 98 98 O2 Delivery Mechanical Ventilator Ventilator Ventilator Ventilator 08/05/19 08/05/19 08/05/19 08/05/19 14:00 15:00 16:00 16:00 Temp 98.4 98.4 Pulse 88 88 90 Resp 24 24 24 B/P (MAP) 158/61 (93) 143/31 (68) 154/61 (92) Pulse Ox 98 98 98 O2 Delivery Ventilator Ventilator Mechanical Ventilator Ventilator 08/05/19 08/05/19 08/05/19 08/05/19 16:10 17:00 17:55 18:00 Pulse 92 93 96 Resp 24 24 B/P (MAP) 144/77 (99) 144/77 139/54 (82) Pulse Ox 97 98 98 O2 Delivery Ventilator Ventilator Ventilator 08/05/19 08/05/19 08/05/19 08/05/19 18:15 19:00 20:00 20:00 Temp 98.4 98.4 Pulse 96 100 Resp 24 24 B/P (MAP) 139/54 (82) 156/75 (102) Pulse Ox 96 96 95 O2 Delivery Ventilator Ventilator Ventilator Mechanical Ventilator 08/05/19 08/05/19 08/05/19 08/05/19 20:01 20:20 20:31 21:00 Pulse 94 Resp 24 B/P (MAP) 171/74 (106) Pulse Ox 96 98 98 96 O2 Delivery Ventilator Ventilator Ventilator O2 Flow Rate 80.0 08/05/19 08/05/19 08/06/19 08/06/19 23:00 23:59 00:00 00:42 Temp 99.5 99.5 Pulse 94 88 90 Resp 24 25 B/P (MAP) 123/60 (81) 123/53 (76) 117/57 Pulse Ox 96 96 O2 Delivery Ventilator Mechanical Ventilator Ventilator 08/06/19 08/06/19 08/06/19 08/06/19 00:47 01:00 02:00 03:04 Pulse 82 91 94 Resp 16 18 20 B/P (MAP) 111/51 (71) 120/60 (80) 124/59 (80) Pulse Ox 98 96 96 98 O2 Delivery Ventilator Ventilator Ventilator Ventilator 08/06/19 08/06/19 08/06/19 08/06/19 03:34 04:00 04:00 05:03 Temp 98.5 98.5 Pulse 89 86 Resp 20 20 B/P (MAP) 134/58 (83) 140/64 (89) Pulse Ox 98 99 96 O2 Delivery Ventilator Ventilator Mechanical Ventilator Ventilator 08/06/19 08/06/19 08/06/19 08/06/19 05:47 06:00 06:05 06:48 Pulse 86 86 Resp 20 B/P (MAP) 120/56 (77) 120/56 Pulse Ox 98 97 97 O2 Delivery Ventilator Ventilator O2 Flow Rate 80.0 08/06/19 08/06/19 08/06/19 08/06/19 07:00 07:18 07:38 08:00 Pulse 86 Resp 20 20 B/P (MAP) 126/58 (80) Pulse Ox 96 96 97 O2 Delivery Ventilator Ventilator Ventilator Mechanical Ventilator 08/06/19 08/06/19 08/06/19 08/06/19 08:00 09:00 09:14 10:00 Temp 99.2 99.2 Pulse 90 94 95 Resp 22 22 B/P (MAP) 122/59 (80) 174/78 (110) 158/74 (102) Pulse Ox 95 97 97 98 O2 Delivery Ventilator Ventilator Ventilator Ventilator l Intake and Output 08/05/19 08/05/19 08/06/19 14:59 22:59 06:59 Intake Total 100 ml 600 ml 825 ml Output Total 0 ml 945 ml 205 ml Balance 100 ml -345 ml 620 ml Nutrition Consultation Dietary Evaluation: Recommendations by RD: Dietary education by RD, Increase Calorie Intake, Protein supplementation Comments: REC switch TF formula to VitalAF, increase 10 ml q8 hrs as tolerated to goal rate 60 ml/hr w/100 ml water flushes q4 hrs Continue w/Javi BID (once in AM and once in PM) for wound healing, dissolve each packet in ~4 oz water to dissolve and flush tube w/~30 ml water before and after each packet Continue w/MVI for wound healing Expected Outcomes/Goals: New goal 08/02: TF infusion to meet >75% est needs - goal ongoing Malnutrition Findings: Food and Nutrition Intake (Mod: <75% est energy req 7days Body Fat Depletion (Non Severe: Mild Depletion Weight Status: Appropriate CORY SCHMIDT MD Aug 06, 2019 10:34
--- NOTE | 2019-08-06 10:41 | NUR ---
IP: Pt has completed 7 days of precautions and is afebrile for 24 hours. Droplet precautions may be discontinued.
--- NOTE | 2019-08-06 12:03 | PDOC ---
GOKUL MELENDREZ [facility] 08/06/19 1203: CARDIO Progress Notes Date and Time Date of Service 08/06/19 Time of Evaluation 1200 Subjective Subjective: Other (sedation off this am, intubated) Vitals Vitals Vital Signs Date Time Temp Pulse Resp B/P (MAP) Pulse Ox O2 Delivery O2 Flow Rate FiO2 08/06/19 11:35 98 Ventilator 08/06/19 11:00 86 22 196/85 (122) 08/06/19 08:00 99.2 99.2 08/06/19 06:48 80.0 Weight Weight [ ] Input and Output Intake and Output Intake and Output 08/06/19 06:59 Intake Total 1525 ml Output Total 1150 ml Balance 375 ml Intake Oral 350 ml IV Total 475 ml Tube Feeding 700 ml Output Urine Total 1150 ml Gastric Drainage Total 0 ml Laboratory Labs Laboratory Tests Test 08/06/19 06:00 08/06/19 08:00 White Blood Count 14.6 x10^3/uL (4.0-11.0) Red Blood Count 3.72 x10^6/uL (4.30-5.70) Hemoglobin 11.9 g/dL (13.0-17.5) Hematocrit 35.2 % (39.0-53.0) Mean Corpuscular Volume 95 fL (79-100) Mean Corpuscular Hemoglobin 32 pg (25-35) Mean Corpuscular Hemoglobin Concent 34 g/dL (31-37) Red Cell Distribution Width 14.0 % (11.5-14.5) Platelet Count 247 x10^3/uL (140-400) Neutrophils (%) (Auto) 81 % (31-73) Lymphocytes (%) (Auto) 11 % (24-48) Monocytes (%) (Auto) 4 % (0-9) Eosinophils (%) (Auto) 3 % (0-3) Basophils (%) (Auto) 1 % (0-3) Neutrophils # (Auto) 11.8 x10^3/uL (1.8-7.7) Lymphocytes # (Auto) 1.7 x10^3/uL (1.0-4.8) Monocytes # (Auto) 0.6 x10^3/uL (0.0-1.1) Eosinophils # (Auto) 0.4 x10^3/uL (0.0-0.7) Basophils # (Auto) 0.1 x10^3/uL (0.0-0.2) Segmented Neutrophils % 70 % (35-66) Lymphocytes % 17 % (24-48) Monocytes % 8 % (0-10) Eosinophils % 2 % (0-5) Metamyelocytes % 2 % (0-0) Myelocytes % 1 % (0-0) Platelet Estimate Adequate (ADEQUATE) Anisocytosis Slight Heparin Anti-Xa Act, Unfractionated 0.22 IU/mL (0.30-0.70) Sodium Level 139 mmol/L (136-145) Potassium Level 4.2 mmol/L (3.5-5.1) Chloride Level 103 mmol/L (98-107) Carbon Dioxide Level 28 mmol/L (21-32) Anion Gap 8 (6-14) Blood Urea Nitrogen 59 mg/dL (8-26) Creatinine 2.5 mg/dL (0.7-1.3) Estimated GFR (Cockcroft-Gault) 26.0 Glucose Level 99 mg/dL (70-99) Calcium Level 8.5 mg/dL (8.5-10.1) O2 Saturation 98 % (92-99) Arterial Blood pH 7.44 (7.35-7.45) Arterial Blood pCO2 at Patient Temp 38 mmHg (35-46) Arterial Blood pO2 at Patient Temp 103 mmHg (65-108) Arterial Blood HCO3 25 mmol/L (21-28) Arterial Blood Base Excess 1 mmol/L (-3-3) FiO2 40%vent Microbiology Micro Microbiology 08/02/19 Blood Culture - Preliminary, Resulted NO GROWTH AFTER 4 DAYS 07/31/19 - Final, Complete 07/31/19 - Final, Complete 07/31/19 - Final, Complete 07/31/19 Gram Stain Evaluation - Final, Complete 07/31/19 Sputum Culture - Final, Complete 07/31/19 Sputum Result 1 - Final, Complete 07/30/19 Urine Culture - Final, Complete 07/30/19 Urine Culture Result 1 (SONIA) - Final, Complete Physical Exam HEENT: Neck Supple W Full Motion Chest: Symmetric LUNGS: Other (mechanical vent ) Heart: S1S2, RRR (SR with PACs, PVCs), other (distant heart tones ) Abdomen: Other (soft ) Extremities: No Edema, Other (Rook boot, extremity warm. DRSG to right foot.) Neurology: other (off sedation; not awake ) Assessment Assessment 1. Acute respiratory hypercapnic respiratory failure with PNA, influenza, and possible AE COPD. s/p intubation. off sedation. Continue vent management per pulmonary team. 2. Flu A 3. Sepsis, bacteremia with UTI/pneumonia: Continue antibiotics as per ID 4. SONIA: HD initiated 3/2. Cr improving 5. PAFIB RVR; converted with Amiodarone. Maintaining SR with PACs. Continue metoprolol for rate control 6. Mildly elevated troponin: peaked at 0.11. Demand mediated with culprits above. 2-D echo showed normal LV systolic function. 7. Metabolic/hypoxic encephalopathy 8. Severe PAD: ischemia to right foot with grayish 4th toe possibly cardioemboli. On heparin. Gangrenous right 4th toe; amputation planned, but waiting extubation for consent. Continue local wound care, marleny mackenzie 10. Noncompliance, homelessness 10. Tobaccoism SRI BANKS MD 08/06/19 1653: CARDIO Progress Notes Assessment Assessment Patient seen and examined. 1. Acute respiratory hypercapnic respiratory failure with PNA, influenza, and possible AE COPD. s/p intubation. off sedation. Continues on a ventilator. Followed by the pulmonary service. 2. Flu A 3. Sepsis, bacteremia with UTI/pneumonia: Continue antibiotics as per ID 4. SONIA: HD initiated 08/02. Cr improving 5. PAFIB RVR; converted with Amiodarone. Maintaining SR with PACs. Continue metoprolol for rate control 6. Mildly elevated troponin: peaked at 0.11. Demand mediated with culprits above. 2-D echo showed normal LV systolic function. 7. Metabolic/hypoxic encephalopathy 8. Severe PAD: ischemia to right foot with grayish 4th toe possibly cardioemboli. On heparin. Gangrenous right 4th toe; amputation planned. Continue local wound care. 10. Noncompliance, homelessness 10. Tobaccoism GOKUL MELENDREZ APRN Aug 06, 2019 12:03 SRI BANKS MD Aug 06, 2019 16:53
[2019-08-06] MEDS ORDERED: PROPOFOL 100 ML IV PRN (13:45)
--- NOTE | 2019-08-06 16:47 | NUR ---
Wound Care: Patient seen per wound care follow up. See wound assessment. Patient has gangrene to right 4th toe. Wound cleansed and assessed. RN stated patient could possibly have amputation tomorrow 08/07/19, therefore just redressed the toe as well as dorsal foot which is an open blister with xeroform gauze, ABD pad and kerlix. Patient has bilateral rooke boots. No other wounds noted upon complete head to toe assessment. Coccyx is reddened but remains blanchable, A&D ointment applied. patient on ICU bed at this time and turned to left using wedge. patient on vent at this time. Will follow patient regarding wound care.
[2019-08-06] MEDS: FAMOTIDINE 20 MG/2 ML VIAL IVP SCH (21:19)
[2019-08-07] VITALS (22 sets, daily range): BP systolic 142–210; BP diastolic 62–95
[2019-08-07] MEDS: IPRATRPIUM/ALBUTEROL 0.5/2.5MG 3 ML NEBU. NEB SCH ×5 (00:08→20:26)
--- NOTE | 2019-08-07 00:10 | RAD ---
RENAL COMPLETE BILATERAL History: Renal failure Comparison: None. Procedure: Transabdominal ultrasound images are obtained of the kidneys and bladder. Findings: Right kidney: measures 13.9 x 5.7 x 6.2 cm. Normal cortical echotexture. Corticomedullary differentiation is preserved. Mild right pelviectasis. No renal cyst. No solid renal mass or calculus. Right renal resistive index 0.75. Left kidney: measures 11.9 x 6.0 x 6.0 cm. Normal cortical echotexture. Corticomedullary differentiation is preserved. No hydronephrosis. No renal cyst. No solid renal mass or calculus. Left renal resistive index 0.71. Urinary bladder: Decompressed urinary bladder. Valladares catheter in place. The IVC is patent. Atheromatous calcifications throughout the nonaneurysmal abdominal aorta. IMPRESSION: 1. Mild right pelviectasis. 2. Mildly elevated bilateral renal artery resistive indices, may indicate medical renal disease. Electronically signed by: Tramaine Granado DO (08/07/2019 12:08 AM) [id number]
[2019-08-07] MEDS: METOPROLOL TARTRATE 5 MG/5 ML VIAL. IVP SCH ×4 (00:50→18:13)
[2019-08-07 04:22] LABS: BASO # 0.1 x10^3/uL (0.0-0.2); BASO % 1 % (0-3); EOS # 0.4 x10^3/uL (0.0-0.7); EOS % 3 % (0-3); HEMATOCRIT 35.7 % (39.0-53.0); HEMOGLOBIN 11.8 g/dL (13.0-17.5); LYMPH # 1.7 x10^3/uL (1.0-4.8); LYMPH % 13 % (24-48); MEAN CORPUSCULAR HEMOGLOBIN 31 pg (25-35); MEAN CORPUSCULAR HGB CONC 33 g/dL (31-37); MEAN CORPUSCULAR VOLUME 95 fL (79-100); MONO # 0.8 x10^3/uL (0.0-1.1); MONO % 6 % (0-9); NEUT # 10.3 x10^3/uL (1.8-7.7); NEUT % 78 % (31-73); PLATELET COUNT 240 x10^3/uL (140-400); RED BLOOD COUNT 3.76 x10^6/uL (4.30-5.70); RED CELL DISTRIBUTION WIDTH 13.8 % (11.5-14.5); WHITE BLOOD COUNT 13.3 x10^3/uL (4.0-11.0)
[2019-08-07 05:59] LABS: ALBUMIN 2.1 g/dL (3.4-5.0); CALCIUM 8.8 mg/dL (8.5-10.1); GFR 33.6; PHOSPHORUS 5.1 mg/dL (2.6-4.7); POTASSIUM 3.9 mmol/L (3.5-5.1)
[2019-08-07] MEDS: HEPARIN 25,000UTS/250ML PREMIX 250 ML IV PRN ×2 (06:20→17:55)
--- NOTE | 2019-08-07 06:30 | RAD ---
PORTABLE CHEST 1V History: Respiratory failure Comparison: August 06, 2019 Findings: Multifocal pulmonary opacities, unchanged. Small bilateral pleural effusions layering, unchanged. Unchanged heart size. Stable endotracheal tube, enteric tube and right IJ central lines. No pneumothorax. Impression: 1. No significant interval change compared to prior. Electronically signed by: Tramaine Granado DO (08/07/2019 6:26 AM) [id number]
--- NOTE | 2019-08-07 06:47 | PDOC ---
Infectious Disease Note Subjective Subjective Orally intubated/vent and sedated FiO2 40% 5 PEEP ROS ROS unable to obtain Vital Sign Vital Signs Vital Signs Date Time Temp Pulse Resp B/P (MAP) Pulse Ox O2 Delivery O2 Flow Rate FiO2 08/07/19 06:18 81 180/72 08/07/19 05:59 100 Ventilator 08/07/19 04:00 99.3 20 99.3 Physical Exam PHYSICAL EXAM GENERAL: Sedated, orally intubated/vent HEENT: Pupils equal, ETT and OGT in place. NECK: Supple. No JVD LUNGS: Diminished aeration bases HEART: S1, S2, irregular rhythm. ABDOMEN: Obese, soft, mildly distended : Valladares in place, 1 + scrotal swelling, erythema, EXTREMITIES: Ischemic changes right foot improved with 4 th toe gangrene toe - appears impregnator and drier - dorsal area appears clean; Left foot pink. Rooke boots bilaterally DERMATOLOGIC: No generalized rash. NEUROLOGIC: Sedated and intubated. RIJ without signs of complications . R HD cath (08/02) PIVs Labs Lab Laboratory Tests Test 08/06/19 08:00 08/06/19 13:43 08/06/19 20:00 08/06/19 21:45 O2 Saturation 98 % (92-99) Arterial Blood pH 7.44 (7.35-7.45) Arterial Blood pCO2 at Patient Temp 38 mmHg (35-46) Arterial Blood pO2 at Patient Temp 103 mmHg (65-108) Arterial Blood HCO3 25 mmol/L (21-28) Arterial Blood Base Excess 1 mmol/L (-3-3) FiO2 40%vent Heparin Anti-Xa Act, Unfractionated 0.34 IU/mL (0.30-0.70) 1.01 IU/mL (0.30-0.70) 0.53 IU/mL (0.30-0.70) Test 08/07/19 03:50 White Blood Count 13.3 x10^3/uL (4.0-11.0) Red Blood Count 3.76 x10^6/uL (4.30-5.70) Hemoglobin 11.8 g/dL (13.0-17.5) Hematocrit 35.7 % (39.0-53.0) Mean Corpuscular Volume 95 fL (79-100) Mean Corpuscular Hemoglobin 31 pg (25-35) Mean Corpuscular Hemoglobin Concent 33 g/dL (31-37) Red Cell Distribution Width 13.8 % (11.5-14.5) Platelet Count 240 x10^3/uL (140-400) Neutrophils (%) (Auto) 78 % (31-73) Lymphocytes (%) (Auto) 13 % (24-48) Monocytes (%) (Auto) 6 % (0-9) Eosinophils (%) (Auto) 3 % (0-3) Basophils (%) (Auto) 1 % (0-3) Neutrophils # (Auto) 10.3 x10^3/uL (1.8-7.7) Lymphocytes # (Auto) 1.7 x10^3/uL (1.0-4.8) Monocytes # (Auto) 0.8 x10^3/uL (0.0-1.1) Eosinophils # (Auto) 0.4 x10^3/uL (0.0-0.7) Basophils # (Auto) 0.1 x10^3/uL (0.0-0.2) Heparin Anti-Xa Act, Unfractionated 0.53 IU/mL (0.30-0.70) Sodium Level 144 mmol/L (136-145) Potassium Level 3.9 mmol/L (3.5-5.1) Chloride Level 106 mmol/L (98-107) Carbon Dioxide Level 29 mmol/L (21-32) Anion Gap 9 (6-14) Blood Urea Nitrogen 62 mg/dL (8-26) Creatinine 2.0 mg/dL (0.7-1.3) Estimated GFR (Cockcroft-Gault) 33.6 Glucose Level 90 mg/dL (70-99) Calcium Level 8.8 mg/dL (8.5-10.1) Phosphorus Level 5.1 mg/dL (2.6-4.7) Albumin 2.1 g/dL (3.4-5.0) Micro Streptococcus pneumoniae Mucoid strain Performed at: DA - [facility] [address] [facility] [facility] [address], [place], [place] [id number] Culturist: MILADY Wang MD, Phone: [phone] Streptococcus pneumoniae Mucoid strain This nonmeningitis penicillin-susceptible pneumococcal isolate can be considered susceptible to the oral agents amoxicillin, amoxicillin-clavulanic acid, ampicillin, cefaclor, cefdinir, cefditoren, cefpodoxime, cefprozil, cefuroxime, and loracarbef, and to the parenteral agents ampicillin, ampicillin-sulbactam, cefepime, cefotaxime, ceftizoxime, ceftriaxone, cefuroxime, ertapenem, imipenem, and meropenem, for approved indications. Doses of IV penicillin of at least 2 million units every 4 hours in adults with normal renal function (12 million units per day) are effective in treating nonmeningeal pneumococcal infections due to strains that are susceptible to penicillin. (CLSI 2011) Use of cefotaxime or ceftriaxone in meningitis requires therapy with maximum doses. (CLSI) For cefotaxime, use of interpretive criteria for nonmeningitis requires doses appropriate for serious pneumococcal infections (e.g., at least 1 g (adults) or 50 mg/kg (children) every eight hours or more frequently). (CLSI) Use of penicillin in meningitis requires therapy with maximum doses of IV penicillin (e.g. at least 3 million units every 4 hours in adults with normal renal function). (CLSI) CONTINUED ON NEXT PAGE RUN DATE: 08/03/19 [facility] *LIVE* PAGE 2 RUN TIME: 1810 Specimen Inquiry SPEC: [id number] PATIENT: DEANDRE WARREN [id number] (Continued) Procedure Result --- --------- ANTIMICROBIAL SUSCEPTIBILITY Final Comment S = Susceptible; I = Intermediate; R = Resistant P = Positive; N = Negative MICS are expressed in micrograms per mL Antibiotic RSLT#1 RSLT#2 RSLT#3 RSLT#4 Cefotaxime (meningitis) S<=0.25 Cefotaxime (non-meningitis) S<=0.25 Ceftriaxone (meningitis) S<=0.25 Ceftriaxone (non-meningitis) S<=0.25 Erythromycin S<=0.06 Levofloxacin S =1 Meropenem S<=0.06 Penicillin (oral pen V) S<=0.03 Penicillin IV (meningitis) S<=0.03 Penicillin IV (non-mening) S<=0.03 Tetracycline R> 4 Trimethoprim/Sulfa S<=0.25 Vancomycin S =0.5 Microbiology 08/02/19 Blood Culture - Preliminary, Resulted NO GROWTH AFTER 1 DAY 07/31/19 - Final, Resulted 07/31/19 - Final, Resulted 07/31/19 - Final, Resulted 07/31/19 - Preliminary, Resulted 07/31/19 - Preliminary, Resulted 07/31/19 - Preliminary, Resulted 07/31/19 Gram Stain Evaluation - Final, Resulted 07/31/19 Sputum Culture, Resulted Pending 07/30/19 Urine Culture - Final, Complete 07/30/19 Urine Culture Result 1 (SONIA) - Final, Complete Objective Assessment Septic shock procalcitonin 25.26 Strep pneumo sepsis (4 of 4 bottles), 07/30 ? source.- ?lung with strep pneumo ? foot -Repeat BC and 08/01 neg to date. TTE (07/31) no evidence veg Leukocytosis - improved today - ? reactive - HD 08/04 - AF - clinically stable Influenza A 07/30 , respiratory tract infection - treated. Acute hypoxic respiratory failure with pneumonia, status post intubation. 07/31. strep pneumo & GPR - no identified on gram stain/mold. culture in process Severe peripheral vascular disease, right foot ischemia/gangrene Encephalopathy.- sedated now Lactic acidosis. Acute kidney injury Hyperbilirubinemia. LFT elevation. High troponin. Atrial fibrillation with rapid ventricular response, on amiodarone. Homelessness. Groin dermatitis. Tinea Plan Plan of Care Off Daptomycin D/c Zyvox 08/04 Cont Merrem, and micafungin - based on Cr may need to increase Meropenem Follow up labs and cultures Maintain aspiration precautions Droplet precautions can be discontinued Surgery on toe- not performed as unable to get consent per nursing Critically ill D/w nursing MATTHEW SEPULVEDA MD Aug 07, 2019 06:47
[2019-08-07 07:18] LABS: BASE EXCESS ABG 1 mmol/L (-3-3); HCO3 ABG 23 mmol/L (21-28); PCO2 ABG 32 mmHg (35-46); PO2 ABG 118 mmHg (65-108); SAT O2 ABG 98 % (92-99)
[2019-08-07] MEDS: MICAFUNGIN 100 MG in IV DEXTROSE 5% 100ML 100 ML IV SCH (07:25)
[2019-08-07] MEDS: MEROPENEM 1 GM in IV NORMAL SALINE 100ML 100 ML IV SCH ×2 (08:40→20:50)
[2019-08-07] MEDS: CHLORHEXIDINE 0.12% 15 ML MOUTHWASH. MM SCH (09:00)
[2019-08-07] MEDS: MULTIVITAMINS,THERAPEUTIC 5 ML ORAL LIQUID. PEG SCH (09:00)
[2019-08-07] MEDS: THIAMINE 100 MG TABLET. PEG SCH (09:00)
--- NOTE | 2019-08-07 09:36 | PDOC ---
SUBJECTIVE ROS Intubated, OBJECTIVE Vital Signs Vital Signs Date Time Temp Pulse Resp B/P (MAP) Pulse Ox O2 Delivery O2 Flow Rate FiO2 08/07/19 09:11 99 Ventilator 08/07/19 06:18 81 180/72 08/07/19 06:00 20 08/07/19 04:00 99.3 99.3 I & 0 Intake and Output 08/07/19 07:00 Intake Total 698 ml Output Total 1645 ml Balance -947 ml IV Total 548 ml Tube Feeding 150 ml Output Urine Total 1645 ml Gastric Drainage Total 0 ml # Bowel Movements 3 PHYSICAL EXAM Physical Exam GENERAL: orally intubated/vent HEENT: ETT and OGT in place. NECK: Supple. LUNGS: Diminished aeration bases HEART: S1, S2, irregular rhythm. ABDOMEN: Obese, soft, : Valladares in place, scrotal swelling, EXTREMITIES: Ischemic changes right foot with bullous lesion/gangrene; DERMATOLOGIC: No generalized rash. NEUROLOGIC: intubated. DIAGNOSIS/ASSESSMENT Assessment & Plan ARF: Possible ATN: Initially Oligouric, UOP improved Initiated on Hemodialysis 08/02 , 2 nd on 08/04 No indication today, Monitor for renal recovery ,Supportive care , avoid nephrotoxins Septic shock, GPC in chains/pairs bacteremia TTE (07/31) no evidence veg Rt 4th toe has black gangrene and an open wound on the lateral toe deep to the bone- vascular Recommends right 4th toe amputation Influenza A 07/30 , respiratory tract infection. Acute hypoxic respiratory failure with pneumonia, status post intubation. 07/31. strep pneumo Severe peripheral vascular disease, right foot ischemia/gangrene Encephalopathy.- sedated Lactic acidosis. Hyperbilirubinemia/LFT elevation. Atrial fibrillation with rapid ventricular response, on amiodarone. COMMENT/RELEVANT DATA Meds Current Medications Medications (Trade) Dose Ordered Sig/Casper Start Time Stop Time Status Last Admin Dose Admin Acetaminophen (Tylenol Supp) 650 mg 1X ONCE 07/30/19 20:15 07/30/19 20:16 DC 07/30/19 20:49 650 MG Acetaminophen (Tylenol) 650 mg PRN Q4HRS PRN 07/30/19 20:30 07/31/19 20:29 DC 07/31/19 12:49 650 MG Albumin Human 100 ml @ 100 mls/hr TID 07/31/19 14:30 08/02/19 09:59 DC 08/02/19 09:44 100 MLS/HR Albuterol Sulfate (Ventolin Neb Soln) 10 mg 1X ONCE 07/30/19 18:00 07/30/19 18:01 DC 07/30/19 18:00 10 MG Albuterol/ Ipratropium (Duoneb) 3 ml Q4HRS 07/31/19 04:00 08/07/19 07:03 3 ML Amiodarone HCl 150 mg/Dextrose 103 ml @ 618 mls/hr 1X ONCE 07/30/19 18:45 07/30/19 18:54 DC 07/30/19 20:07 618 MLS/HR Amiodarone HCl 450 mg/Dextrose 259 ml @ 0 mls/hr CONT PRN 07/30/19 18:45 07/30/19 20:21 33.3 MLS/HR Bisacodyl (Dulcolax Supp) 10 mg PRN DAILY PRN 07/31/19 15:00 Cefazolin Sodium 1 gm/Sodium Chloride 500 ml @ 500 mls/hr 1X ONCE 08/04/19 06:00 08/04/19 06:59 DC Chlorhexidine Gluconate (Peridex) 15 ml BID 07/30/19 21:00 08/06/19 21:19 15 ML Daptomycin 490 mg/ Sodium Chloride 50 ml @ 100 mls/hr Q48H 08/01/19 10:00 08/04/19 07:59 DC 08/03/19 11:19 100 MLS/HR Digoxin (Lanoxin) 250 mcg 1X ONCE 07/31/19 00:30 07/31/19 00:31 DC 07/31/19 00:12 250 MCG Diltiazem HCl (Cardizem Iv Push) 10 mg 1X ONCE 07/30/19 18:00 07/30/19 18:01 DC 07/30/19 18:01 10 MG Diltiazem HCl 125 mg/Sodium Chloride 125 ml @ 5 mls/hr CONT PRN 07/31/19 01:00 08/01/19 03:03 5 MLS/HR Dobutamine HCl/ Dextrose 250 ml @ 0 mls/hr CONT PRN 07/31/19 15:00 UNV Etomidate (Amidate) 20 mg 1X ONCE 07/30/19 23:45 07/30/19 23:46 DC 07/30/19 19:27 20 MG Famotidine (Pepcid Vial) 20 mg BID 07/31/19 21:00 UNV Fentanyl Citrate (Fentanyl 2ml Vial) 50 mcg PRN Q5MIN PRN 08/04/19 07:00 08/05/19 06:59 DC Furosemide (Lasix) 40 mg 1X ONCE 08/01/19 22:30 08/01/19 22:31 DC 08/01/19 22:14 40 MG Heparin Sodium (Porcine) (Heparin Sodium) 2,200 unit PRN Q6HRS PRN 07/30/19 20:45 08/01/19 15:42 2,200 UNIT Heparin Sodium/ Dextrose 250 ml @ 0 mls/hr CONT PRN 07/31/19 00:00 UNV Info (Anti-Coagulation Monitoring By Pharmacy) 1 each PRN DAILY PRN 07/30/19 21:00 08/04/19 15:55 1 EACH Info (PHARMACY MONITORING -- do not chart) 1 each PRN DAILY PRN 08/05/19 20:30 UNV Lidocaine HCl (Buffered Lidocaine 1%) 3 ml 1X ONCE 08/03/19 09:30 08/03/19 09:31 DC 08/03/19 09:28 3 ML Linezolid/Dextrose 300 ml @ 300 mls/hr Q12HR 07/31/19 09:00 08/05/19 08:02 DC 08/04/19 21:02 300 MLS/HR Lorazepam (Ativan Inj) 2 mg STK-MED ONCE 07/30/19 18:14 07/30/19 18:14 DC Meropenem 1 gm/ Sodium Chloride 100 ml @ 200 mls/hr Q12HR 07/31/19 09:00 08/07/19 08:40 200 MLS/HR Metoprolol Tartrate (Lopressor Vial) 5 mg Q6HRS 08/05/19 18:00 08/07/19 06:18 5 MG Micafungin Sodium 100 mg/Dextrose 100 ml @ 100 mls/hr Q24H 07/31/19 08:00 08/07/19 07:25 100 MLS/HR Midazolam HCl 50 mg/Sodium Chloride 50 ml @ 0 mls/hr CONT PRN 07/31/19 00:15 08/06/19 06:48 7 MLS/HR Morphine Sulfate (Morphine Sulfate) 4 mg PRN Q1HR PRN 07/30/19 19:15 07/31/19 00:11 DC Multivitamins/ Minerals Therapeutic (Centrum Multivit-Mineral Liq) 5 ml DAILY 08/03/19 12:00 08/06/19 10:26 5 ML Norepinephrine Bitartrate 8 mg/ Dextrose 258 ml @ 0 mls/hr CONT PRN 07/30/19 19:00 07/31/19 08:04 DC Ondansetron HCl (Zofran) 4 mg PRN Q6HRS PRN 08/04/19 07:00 08/05/19 06:59 DC Oseltamivir Phosphate (Tamiflu) 30 mg BID 07/31/19 09:00 08/05/19 08:59 DC 08/04/19 21:02 30 MG Piperacillin Sod/ Tazobactam Sod 4.5 gm/Sodium Chloride 100 ml @ 200 mls/hr 1X ONCE 07/30/19 19:00 07/31/19 08:04 DC 07/30/19 19:06 200 MLS/HR Potassium Bicarbonate (Potassium Effervescent Tablet) 20 meq 1X ONCE 08/01/19 22:30 08/01/19 22:31 DC 08/01/19 22:14 20 MEQ Potassium Chloride/Water 100 ml @ 100 mls/hr Q1H 07/30/19 19:30 07/30/19 21:29 DC 07/30/19 21:31 100 MLS/HR Prochlorperazine (Compazine) 25 mg PRN Q12HR PRN 07/31/19 15:00 Prochlorperazine Edisylate (Compazine) 5 mg PACU PRN PRN 08/04/19 07:00 08/05/19 06:59 DC Propofol 100 ml @ 0 mls/hr CONT PRN 08/06/19 13:45 08/06/19 13:51 7.4 MLS/HR Ringer's Solution 1,000 ml @ 30 mls/hr Q24H 08/04/19 07:00 08/04/19 18:59 DC Rocuronium Williams (Zemuron) 50 mg 1X ONCE 07/30/19 23:45 07/30/19 23:46 DC 07/30/19 19:28 50 MG Sodium Bicarbonate 100 meq/Dextrose 1,100 ml @ 75 mls/hr 1X ONCE 07/30/19 23:00 07/31/19 13:39 DC 07/31/19 01:54 75 MLS/HR Sodium Chloride (Normal Saline Flush) 10 ml 1X PRN PRN 08/05/19 16:00 08/06/19 15:59 DC Thiamine Mononitrate (Vitamin B-1) 100 mg DAILY 08/06/19 09:00 08/06/19 10:26 100 MG Thiamine HCl 100 mg/Dextrose 51 ml @ 102 mls/hr DAILY 07/31/19 17:00 08/05/19 23:00 DC 08/05/19 10:15 102 MLS/HR Vancomycin HCl (Vanco Per Pharmacy) 1 each PRN DAILY PRN 07/31/19 02:30 07/31/19 08:06 DC 07/31/19 03:30 1 EACH Vancomycin HCl (Vancomycin Trough Level) 1 each 1X ONCE 08/01/19 07:30 08/01/19 07:31 Cancel Vancomycin HCl 1.25 gm/Sodium Chloride 250 ml @ 167 mls/hr Q12H 07/31/19 08:00 07/31/19 08:06 DC 07/31/19 07:57 167 MLS/HR Vancomycin HCl 2 gm/Sodium Chloride 500 ml @ 250 mls/hr 1X ONCE 07/30/19 19:15 07/30/19 21:14 DC 07/30/19 20:15 250 MLS/HR Vitamin A/Vitamin D (Vitamin A & D Ointment) 1 mliton PRN Q1HR PRN 07/31/19 16:45 08/03/19 08:14 1 [facility] Lab Laboratory Tests Test 08/06/19 13:43 08/06/19 20:00 08/06/19 21:45 08/07/19 03:50 Heparin Anti-Xa Act, Unfractionated 0.34 IU/mL (0.30-0.70) 1.01 IU/mL (0.30-0.70) 0.53 IU/mL (0.30-0.70) 0.53 IU/mL (0.30-0.70) White Blood Count 13.3 x10^3/uL (4.0-11.0) Red Blood Count 3.76 x10^6/uL (4.30-5.70) Hemoglobin 11.8 g/dL (13.0-17.5) Hematocrit 35.7 % (39.0-53.0) Mean Corpuscular Volume 95 fL (79-100) Mean Corpuscular Hemoglobin 31 pg (25-35) Mean Corpuscular Hemoglobin Concent 33 g/dL (31-37) Red Cell Distribution Width 13.8 % (11.5-14.5) Platelet Count 240 x10^3/uL (140-400) Neutrophils (%) (Auto) 78 % (31-73) Lymphocytes (%) (Auto) 13 % (24-48) Monocytes (%) (Auto) 6 % (0-9) Eosinophils (%) (Auto) 3 % (0-3) Basophils (%) (Auto) 1 % (0-3) Neutrophils # (Auto) 10.3 x10^3/uL (1.8-7.7) Lymphocytes # (Auto) 1.7 x10^3/uL (1.0-4.8) Monocytes # (Auto) 0.8 x10^3/uL (0.0-1.1) Eosinophils # (Auto) 0.4 x10^3/uL (0.0-0.7) Basophils # (Auto) 0.1 x10^3/uL (0.0-0.2) Sodium Level 144 mmol/L (136-145) Potassium Level 3.9 mmol/L (3.5-5.1) Chloride Level 106 mmol/L (98-107) Carbon Dioxide Level 29 mmol/L (21-32) Anion Gap 9 (6-14) Blood Urea Nitrogen 62 mg/dL (8-26) Creatinine 2.0 mg/dL (0.7-1.3) Estimated GFR (Cockcroft-Gault) 33.6 Glucose Level 90 mg/dL (70-99) Calcium Level 8.8 mg/dL (8.5-10.1) Phosphorus Level 5.1 mg/dL (2.6-4.7) Albumin 2.1 g/dL (3.4-5.0) Results All relevant outside records, renal labs, imaging studies, telemetry/EKG's were reviewed. Other Multifocal pulmonary opacities, unchanged. Small bilateral pleural effusions layering, unchanged. Unchanged heart size. Stable endotracheal tube, enteric tube and right IJ central lines. No pneumothorax. Impression: 1. No significant interval change compared to prior. JOSE DAVID ANTON MD Aug 07, 2019 09:36
[2019-08-07 09:54] LABS: FIO2 ABG 40
[2019-08-07 10:05] LABS: BASE EXCESS ABG 4 mmol/L (-3-3); HCO3 ABG 27 mmol/L (21-28); PCO2 ABG 34 mmHg (35-46); PO2 ABG 134 mmHg (65-108); SAT O2 ABG 99 % (92-99)
--- NOTE | 2019-08-07 10:12 | PDOC ---
PULMONARY PROGRESS NOTES Subjective AWAKE, FOLLOWING COMMANDS ON CPAP TRIAL Vitals Vital Signs Date Time Temp Pulse Resp B/P (MAP) Pulse Ox O2 Delivery O2 Flow Rate FiO2 08/07/19 09:11 99 Ventilator 08/07/19 09:00 94 36 180/82 (114) 08/07/19 08:00 99.6 99.6 General: Alert Lungs: Clear Cardiovascular: S1, S2 Abdomen: Soft Extremities: Other (PVD) Skin: Warm Labs Laboratory Tests Test 08/05/19 11:09 08/06/19 06:00 08/06/19 08:00 08/06/19 13:43 Heparin Anti-Xa Act, Unfractionated 0.33 IU/mL (0.30-0.70) 0.22 IU/mL (0.30-0.70) 0.34 IU/mL (0.30-0.70) White Blood Count 14.6 x10^3/uL (4.0-11.0) Red Blood Count 3.72 x10^6/uL (4.30-5.70) Hemoglobin 11.9 g/dL (13.0-17.5) Hematocrit 35.2 % (39.0-53.0) Mean Corpuscular Volume 95 fL (79-100) Mean Corpuscular Hemoglobin 32 pg (25-35) Mean Corpuscular Hemoglobin Concent 34 g/dL (31-37) Red Cell Distribution Width 14.0 % (11.5-14.5) Platelet Count 247 x10^3/uL (140-400) Neutrophils (%) (Auto) 81 % (31-73) Lymphocytes (%) (Auto) 11 % (24-48) Monocytes (%) (Auto) 4 % (0-9) Eosinophils (%) (Auto) 3 % (0-3) Basophils (%) (Auto) 1 % (0-3) Neutrophils # (Auto) 11.8 x10^3/uL (1.8-7.7) Lymphocytes # (Auto) 1.7 x10^3/uL (1.0-4.8) Monocytes # (Auto) 0.6 x10^3/uL (0.0-1.1) Eosinophils # (Auto) 0.4 x10^3/uL (0.0-0.7) Basophils # (Auto) 0.1 x10^3/uL (0.0-0.2) Segmented Neutrophils % 70 % (35-66) Lymphocytes % 17 % (24-48) Monocytes % 8 % (0-10) Eosinophils % 2 % (0-5) Metamyelocytes % 2 % (0-0) Myelocytes % 1 % (0-0) Platelet Estimate Adequate (ADEQUATE) Anisocytosis Slight Sodium Level 139 mmol/L (136-145) Potassium Level 4.2 mmol/L (3.5-5.1) Chloride Level 103 mmol/L (98-107) Carbon Dioxide Level 28 mmol/L (21-32) Anion Gap 8 (6-14) Blood Urea Nitrogen 59 mg/dL (8-26) Creatinine 2.5 mg/dL (0.7-1.3) Estimated GFR (Cockcroft-Gault) 26.0 Glucose Level 99 mg/dL (70-99) Calcium Level 8.5 mg/dL (8.5-10.1) O2 Saturation 98 % (92-99) Arterial Blood pH 7.44 (7.35-7.45) Arterial Blood pCO2 at Patient Temp 38 mmHg (35-46) Arterial Blood pO2 at Patient Temp 103 mmHg (65-108) Arterial Blood HCO3 25 mmol/L (21-28) Arterial Blood Base Excess 1 mmol/L (-3-3) FiO2 40%vent Test 08/06/19 20:00 08/06/19 21:45 08/07/19 03:50 08/07/19 07:00 Heparin Anti-Xa Act, Unfractionated 1.01 IU/mL (0.30-0.70) 0.53 IU/mL (0.30-0.70) 0.53 IU/mL (0.30-0.70) White Blood Count 13.3 x10^3/uL (4.0-11.0) Red Blood Count 3.76 x10^6/uL (4.30-5.70) Hemoglobin 11.8 g/dL (13.0-17.5) Hematocrit 35.7 % (39.0-53.0) Mean Corpuscular Volume 95 fL (79-100) Mean Corpuscular Hemoglobin 31 pg (25-35) Mean Corpuscular Hemoglobin Concent 33 g/dL (31-37) Red Cell Distribution Width 13.8 % (11.5-14.5) Platelet Count 240 x10^3/uL (140-400) Neutrophils (%) (Auto) 78 % (31-73) Lymphocytes (%) (Auto) 13 % (24-48) Monocytes (%) (Auto) 6 % (0-9) Eosinophils (%) (Auto) 3 % (0-3) Basophils (%) (Auto) 1 % (0-3) Neutrophils # (Auto) 10.3 x10^3/uL (1.8-7.7) Lymphocytes # (Auto) 1.7 x10^3/uL (1.0-4.8) Monocytes # (Auto) 0.8 x10^3/uL (0.0-1.1) Eosinophils # (Auto) 0.4 x10^3/uL (0.0-0.7) Basophils # (Auto) 0.1 x10^3/uL (0.0-0.2) Sodium Level 144 mmol/L (136-145) Potassium Level 3.9 mmol/L (3.5-5.1) Chloride Level 106 mmol/L (98-107) Carbon Dioxide Level 29 mmol/L (21-32) Anion Gap 9 (6-14) Blood Urea Nitrogen 62 mg/dL (8-26) Creatinine 2.0 mg/dL (0.7-1.3) Estimated GFR (Cockcroft-Gault) 33.6 Glucose Level 90 mg/dL (70-99) Calcium Level 8.8 mg/dL (8.5-10.1) Phosphorus Level 5.1 mg/dL (2.6-4.7) Albumin 2.1 g/dL (3.4-5.0) O2 Saturation 98 % (92-99) Arterial Blood pH 7.49 (7.35-7.45) Arterial Blood pCO2 at Patient Temp 32 mmHg (35-46) Arterial Blood pO2 at Patient Temp 118 mmHg (65-108) Arterial Blood HCO3 23 mmol/L (21-28) Arterial Blood Base Excess 1 mmol/L (-3-3) FiO2 40 Laboratory Tests Test 08/06/19 13:43 08/06/19 20:00 08/06/19 21:45 08/07/19 03:50 Heparin Anti-Xa Act, Unfractionated 0.34 IU/mL (0.30-0.70) 1.01 IU/mL (0.30-0.70) 0.53 IU/mL (0.30-0.70) 0.53 IU/mL (0.30-0.70) White Blood Count 13.3 x10^3/uL (4.0-11.0) Red Blood Count 3.76 x10^6/uL (4.30-5.70) Hemoglobin 11.8 g/dL (13.0-17.5) Hematocrit 35.7 % (39.0-53.0) Mean Corpuscular Volume 95 fL (79-100) Mean Corpuscular Hemoglobin 31 pg (25-35) Mean Corpuscular Hemoglobin Concent 33 g/dL (31-37) Red Cell Distribution Width 13.8 % (11.5-14.5) Platelet Count 240 x10^3/uL (140-400) Neutrophils (%) (Auto) 78 % (31-73) Lymphocytes (%) (Auto) 13 % (24-48) Monocytes (%) (Auto) 6 % (0-9) Eosinophils (%) (Auto) 3 % (0-3) Basophils (%) (Auto) 1 % (0-3) Neutrophils # (Auto) 10.3 x10^3/uL (1.8-7.7) Lymphocytes # (Auto) 1.7 x10^3/uL (1.0-4.8) Monocytes # (Auto) 0.8 x10^3/uL (0.0-1.1) Eosinophils # (Auto) 0.4 x10^3/uL (0.0-0.7) Basophils # (Auto) 0.1 x10^3/uL (0.0-0.2) Sodium Level 144 mmol/L (136-145) Potassium Level 3.9 mmol/L (3.5-5.1) Chloride Level 106 mmol/L (98-107) Carbon Dioxide Level 29 mmol/L (21-32) Anion Gap 9 (6-14) Blood Urea Nitrogen 62 mg/dL (8-26) Creatinine 2.0 mg/dL (0.7-1.3) Estimated GFR (Cockcroft-Gault) 33.6 Glucose Level 90 mg/dL (70-99) Calcium Level 8.8 mg/dL (8.5-10.1) Phosphorus Level 5.1 mg/dL (2.6-4.7) Albumin 2.1 g/dL (3.4-5.0) Test 08/07/19 07:00 O2 Saturation 98 % (92-99) Arterial Blood pH 7.49 (7.35-7.45) Arterial Blood pCO2 at Patient Temp 32 mmHg (35-46) Arterial Blood pO2 at Patient Temp 118 mmHg (65-108) Arterial Blood HCO3 23 mmol/L (21-28) Arterial Blood Base Excess 1 mmol/L (-3-3) FiO2 40 Medications Active Scripts Medications Dose Route/Sig Max Daily Dose Days Date Category Proair Hfa (Albuterol Sulfate) 8.5 Gm Hfa.aer.ad 2 Puff IH PRN Q4-6HRS PRN 21 07/25/19 Rx Tessalon Perle (Benzonatate) 100 Mg Capsule 1 Cap PO TID 07/25/19 Rx Prednisone 50 Mg Tablet 1 Tab PO DAILY 07/25/19 Rx Cyclobenzaprine Hcl 5 Mg Tablet 1 Tab PO TID 03/21/17 Rx Ibuprofen 800 Mg Tablet 800 Mg PO Q6-8HRS 03/21/17 Rx Zofran Odt (Ondansetron) 4 Mg Tab.rapdis 1 Tab SL Q8HRS 01/07/17 Rx Ultram (Tramadol Hcl) 50 Mg Tablet 1 Tab PO Q6HRS 01/29/16 Rx Comments CXR 08/06 CHF/ EFFUSION Impression . IMPRESSION: 1. Acute hypoxemic respiratory failure. MULTIFACTORIAL 2. Sepsis. 3. Pneumonia, suspect gram-negative, possibly gram-positive. 4. Influenza A. 5. New onset atrial fibrillation. 6. Peripheral vascular disease with possible peripheral emboli. 7. Metabolic acidosis. 8. Acute renal failure. 9. Severe protein malnutrition, present upon admission. 10. Elevated total bilirubin. 11. Abnormal cxr/ CHF Plan . DOING BETTER ON CPAP TRIAL. ABG ADEQUATE PROCEED WITH EXTUBATION D/W RN. NO CONSENT AVAILABLE FOR SURGERY POST EXTUBATION GET CONSENT WILL CONTINUE SUPPORT HD/ UF TRY LASIX TODAY D/W RENAL ANTI BX PER ID CXR REVIEWED SURGERY PLANNED ONCE CONSENT DONE IV HEPARIN ANTI BX ABG NOTED INEZ BARRIOS MD Aug 07, 2019 10:12
[2019-08-07] MEDS ORDERED: FUROSEMIDE 40 MG/4 ML VIAL. IVP ONE (10:15)
--- NOTE | 2019-08-07 10:15 | PDOC ---
PROGRESS NOTES History of Present Illness History of Present Illness VTE Prophylaxis Ordered VTE Prophylaxis Devices: Contraindicated VTE Pharmacological Prophylaxi: Yes Assessment/Plan Assessment/Plan impression 1. ACUTE HYPOXIC RESPIRATORY FAILURE 2. INFLUENZA A 3. Sepsis 4, PNA (pneumonia) 5. Altered mental status 6. ischemic right 4th toe 7. SONIA 8. a fib rvr 9. severe sepsis 10. homeless, self neglect due to lack of funds 11. right foot with LARGE LATERAL bullous lesion/gangrene plan admit ICU BED CONSULT PULM CONSULT ID Daptomycin and Merrem and Tamiflu renally dosed Zyvox Micafungin, for groin dermatitis, // yeast. VENT SUPPORT CONSULT NEUROLOGY dvt prophylaxis vascular surgery FOLLOWING Nephrology consult cardiology consult cardizem drip Let tissues demarcate and possibly areas heal. . Will continue heparin drip and Rooke boots. Family refuses to give consent for toe amputation GUARDED PROGNOSIS extubated 08/07/19 AM 34 min cc time Vitals Vitals Vital Signs Date Time Temp Pulse Resp B/P (MAP) Pulse Ox O2 Delivery O2 Flow Rate FiO2 08/07/19 09:11 99 Ventilator 08/07/19 09:00 94 36 180/82 (114) 08/07/19 08:00 99.6 99.6 Physical Exam Physical Exam GENERAL: EXTUBATED, CONFUSED, MITTS HEENT: Pupils equal, ETT and OGT in place. NECK: Supple. No JVD LUNGS: Diminished aeration bases HEART: S1, S2, irregular rhythm. 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 Rooke boots bilaterally DERMATOLOGIC: No generalized rash. NEUROLOGIC: CN 3-12 APPEAR INTACT RIJ without signs of complications . R HD cath (08/02) PIVs General: Alert, Cooperative, No acute distress, Other (intubated) Heart: Other (irregular rhythm) Lungs: Clear Abdomen: Normal bowel sounds, Soft Extremities: No cyanosis, Other (ischemic right 4th toe) Skin: Other (right 4th toe lesion) Labs LABS Laboratory Tests Test 08/06/19 13:43 08/06/19 20:00 08/06/19 21:45 08/07/19 03:50 Heparin Anti-Xa Act, Unfractionated 0.34 IU/mL (0.30-0.70) 1.01 IU/mL (0.30-0.70) 0.53 IU/mL (0.30-0.70) 0.53 IU/mL (0.30-0.70) White Blood Count 13.3 x10^3/uL (4.0-11.0) Red Blood Count 3.76 x10^6/uL (4.30-5.70) Hemoglobin 11.8 g/dL (13.0-17.5) Hematocrit 35.7 % (39.0-53.0) Mean Corpuscular Volume 95 fL (79-100) Mean Corpuscular Hemoglobin 31 pg (25-35) Mean Corpuscular Hemoglobin Concent 33 g/dL (31-37) Red Cell Distribution Width 13.8 % (11.5-14.5) Platelet Count 240 x10^3/uL (140-400) Neutrophils (%) (Auto) 78 % (31-73) Lymphocytes (%) (Auto) 13 % (24-48) Monocytes (%) (Auto) 6 % (0-9) Eosinophils (%) (Auto) 3 % (0-3) Basophils (%) (Auto) 1 % (0-3) Neutrophils # (Auto) 10.3 x10^3/uL (1.8-7.7) Lymphocytes # (Auto) 1.7 x10^3/uL (1.0-4.8) Monocytes # (Auto) 0.8 x10^3/uL (0.0-1.1) Eosinophils # (Auto) 0.4 x10^3/uL (0.0-0.7) Basophils # (Auto) 0.1 x10^3/uL (0.0-0.2) Sodium Level 144 mmol/L (136-145) Potassium Level 3.9 mmol/L (3.5-5.1) Chloride Level 106 mmol/L (98-107) Carbon Dioxide Level 29 mmol/L (21-32) Anion Gap 9 (6-14) Blood Urea Nitrogen 62 mg/dL (8-26) Creatinine 2.0 mg/dL (0.7-1.3) Estimated GFR (Cockcroft-Gault) 33.6 Glucose Level 90 mg/dL (70-99) Calcium Level 8.8 mg/dL (8.5-10.1) Phosphorus Level 5.1 mg/dL (2.6-4.7) Albumin 2.1 g/dL (3.4-5.0) Test 08/07/19 07:00 O2 Saturation 98 % (92-99) Arterial Blood pH 7.49 (7.35-7.45) Arterial Blood pCO2 at Patient Temp 32 mmHg (35-46) Arterial Blood pO2 at Patient Temp 118 mmHg (65-108) Arterial Blood HCO3 23 mmol/L (21-28) Arterial Blood Base Excess 1 mmol/L (-3-3) FiO2 40 Assessment and Plan Assessmemt and Plan Problems Medical Problems: (1) Altered mental status Status: Acute Comment Review of Relevant I have reviewed the following items hay (where applicable) has been applied. Labs Laboratory Tests Test 08/05/19 11:09 08/06/19 06:00 08/06/19 08:00 08/06/19 13:43 Heparin Anti-Xa Act, Unfractionated 0.33 IU/mL (0.30-0.70) 0.22 IU/mL (0.30-0.70) 0.34 IU/mL (0.30-0.70) White Blood Count 14.6 x10^3/uL (4.0-11.0) Red Blood Count 3.72 x10^6/uL (4.30-5.70) Hemoglobin 11.9 g/dL (13.0-17.5) Hematocrit 35.2 % (39.0-53.0) Mean Corpuscular Volume 95 fL (79-100) Mean Corpuscular Hemoglobin 32 pg (25-35) Mean Corpuscular Hemoglobin Concent 34 g/dL (31-37) Red Cell Distribution Width 14.0 % (11.5-14.5) Platelet Count 247 x10^3/uL (140-400) Neutrophils (%) (Auto) 81 % (31-73) Lymphocytes (%) (Auto) 11 % (24-48) Monocytes (%) (Auto) 4 % (0-9) Eosinophils (%) (Auto) 3 % (0-3) Basophils (%) (Auto) 1 % (0-3) Neutrophils # (Auto) 11.8 x10^3/uL (1.8-7.7) Lymphocytes # (Auto) 1.7 x10^3/uL (1.0-4.8) Monocytes # (Auto) 0.6 x10^3/uL (0.0-1.1) Eosinophils # (Auto) 0.4 x10^3/uL (0.0-0.7) Basophils # (Auto) 0.1 x10^3/uL (0.0-0.2) Segmented Neutrophils % 70 % (35-66) Lymphocytes % 17 % (24-48) Monocytes % 8 % (0-10) Eosinophils % 2 % (0-5) Metamyelocytes % 2 % (0-0) Myelocytes % 1 % (0-0) Platelet Estimate Adequate (ADEQUATE) Anisocytosis Slight Sodium Level 139 mmol/L (136-145) Potassium Level 4.2 mmol/L (3.5-5.1) Chloride Level 103 mmol/L (98-107) Carbon Dioxide Level 28 mmol/L (21-32) Anion Gap 8 (6-14) Blood Urea Nitrogen 59 mg/dL (8-26) Creatinine 2.5 mg/dL (0.7-1.3) Estimated GFR (Cockcroft-Gault) 26.0 Glucose Level 99 mg/dL (70-99) Calcium Level 8.5 mg/dL (8.5-10.1) O2 Saturation 98 % (92-99) Arterial Blood pH 7.44 (7.35-7.45) Arterial Blood pCO2 at Patient Temp 38 mmHg (35-46) Arterial Blood pO2 at Patient Temp 103 mmHg (65-108) Arterial Blood HCO3 25 mmol/L (21-28) Arterial Blood Base Excess 1 mmol/L (-3-3) FiO2 40%vent Test 08/06/19 20:00 08/06/19 21:45 08/07/19 03:50 08/07/19 07:00 Heparin Anti-Xa Act, Unfractionated 1.01 IU/mL (0.30-0.70) 0.53 IU/mL (0.30-0.70) 0.53 IU/mL (0.30-0.70) White Blood Count 13.3 x10^3/uL (4.0-11.0) Red Blood Count 3.76 x10^6/uL (4.30-5.70) Hemoglobin 11.8 g/dL (13.0-17.5) Hematocrit 35.7 % (39.0-53.0) Mean Corpuscular Volume 95 fL (79-100) Mean Corpuscular Hemoglobin 31 pg (25-35) Mean Corpuscular Hemoglobin Concent 33 g/dL (31-37) Red Cell Distribution Width 13.8 % (11.5-14.5) Platelet Count 240 x10^3/uL (140-400) Neutrophils (%) (Auto) 78 % (31-73) Lymphocytes (%) (Auto) 13 % (24-48) Monocytes (%) (Auto) 6 % (0-9) Eosinophils (%) (Auto) 3 % (0-3) Basophils (%) (Auto) 1 % (0-3) Neutrophils # (Auto) 10.3 x10^3/uL (1.8-7.7) Lymphocytes # (Auto) 1.7 x10^3/uL (1.0-4.8) Monocytes # (Auto) 0.8 x10^3/uL (0.0-1.1) Eosinophils # (Auto) 0.4 x10^3/uL (0.0-0.7) Basophils # (Auto) 0.1 x10^3/uL (0.0-0.2) Sodium Level 144 mmol/L (136-145) Potassium Level 3.9 mmol/L (3.5-5.1) Chloride Level 106 mmol/L (98-107) Carbon Dioxide Level 29 mmol/L (21-32) Anion Gap 9 (6-14) Blood Urea Nitrogen 62 mg/dL (8-26) Creatinine 2.0 mg/dL (0.7-1.3) Estimated GFR (Cockcroft-Gault) 33.6 Glucose Level 90 mg/dL (70-99) Calcium Level 8.8 mg/dL (8.5-10.1) Phosphorus Level 5.1 mg/dL (2.6-4.7) Albumin 2.1 g/dL (3.4-5.0) O2 Saturation 98 % (92-99) Arterial Blood pH 7.49 (7.35-7.45) Arterial Blood pCO2 at Patient Temp 32 mmHg (35-46) Arterial Blood pO2 at Patient Temp 118 mmHg (65-108) Arterial Blood HCO3 23 mmol/L (21-28) Arterial Blood Base Excess 1 mmol/L (-3-3) FiO2 40 Laboratory Tests Test 08/06/19 13:43 08/06/19 20:00 08/06/19 21:45 08/07/19 03:50 Heparin Anti-Xa Act, Unfractionated 0.34 IU/mL (0.30-0.70) 1.01 IU/mL (0.30-0.70) 0.53 IU/mL (0.30-0.70) 0.53 IU/mL (0.30-0.70) White Blood Count 13.3 x10^3/uL (4.0-11.0) Red Blood Count 3.76 x10^6/uL (4.30-5.70) Hemoglobin 11.8 g/dL (13.0-17.5) Hematocrit 35.7 % (39.0-53.0) Mean Corpuscular Volume 95 fL (79-100) Mean Corpuscular Hemoglobin 31 pg (25-35) Mean Corpuscular Hemoglobin Concent 33 g/dL (31-37) Red Cell Distribution Width 13.8 % (11.5-14.5) Platelet Count 240 x10^3/uL (140-400) Neutrophils (%) (Auto) 78 % (31-73) Lymphocytes (%) (Auto) 13 % (24-48) Monocytes (%) (Auto) 6 % (0-9) Eosinophils (%) (Auto) 3 % (0-3) Basophils (%) (Auto) 1 % (0-3) Neutrophils # (Auto) 10.3 x10^3/uL (1.8-7.7) Lymphocytes # (Auto) 1.7 x10^3/uL (1.0-4.8) Monocytes # (Auto) 0.8 x10^3/uL (0.0-1.1) Eosinophils # (Auto) 0.4 x10^3/uL (0.0-0.7) Basophils # (Auto) 0.1 x10^3/uL (0.0-0.2) Sodium Level 144 mmol/L (136-145) Potassium Level 3.9 mmol/L (3.5-5.1) Chloride Level 106 mmol/L (98-107) Carbon Dioxide Level 29 mmol/L (21-32) Anion Gap 9 (6-14) Blood Urea Nitrogen 62 mg/dL (8-26) Creatinine 2.0 mg/dL (0.7-1.3) Estimated GFR (Cockcroft-Gault) 33.6 Glucose Level 90 mg/dL (70-99) Calcium Level 8.8 mg/dL (8.5-10.1) Phosphorus Level 5.1 mg/dL (2.6-4.7) Albumin 2.1 g/dL (3.4-5.0) Test 08/07/19 07:00 O2 Saturation 98 % (92-99) Arterial Blood pH 7.49 (7.35-7.45) Arterial Blood pCO2 at Patient Temp 32 mmHg (35-46) Arterial Blood pO2 at Patient Temp 118 mmHg (65-108) Arterial Blood HCO3 23 mmol/L (21-28) Arterial Blood Base Excess 1 mmol/L (-3-3) FiO2 40 Microbiology 08/02/19 Blood Culture - Final, Complete NO GROWTH AFTER 5 DAYS 07/31/19 - Final, Complete 07/31/19 - Final, Complete 07/31/19 - Final, Complete 07/31/19 Gram Stain Evaluation - Final, Complete 07/31/19 Sputum Culture - Final, Complete 07/31/19 Sputum Result 1 - Final, Complete 07/30/19 Urine Culture - Final, Complete 07/30/19 Urine Culture Result 1 (SONIA) - Final, Complete Medications Current Medications Albuterol/ Ipratropium (Duoneb) 3 ml 1X ONCE NEB Last administered on 07/30/19at 18:00; Start 07/30/19 at 18:00; Stop 07/30/19 at 18:01; Status DC Albuterol Sulfate (Ventolin Neb Soln) 10 mg 1X ONCE CONT NEB Last administered on 07/30/19at 18:00; Start 07/30/19 at 18:00; Stop 07/30/19 at 18:01; Status DC Morphine Sulfate (Morphine Sulfate) 2 mg PRN Q15MIN PRN IV/SQ PAIN GREATER THAN 3/10 Last administered on 07/30/19at 18:08; Start 07/30/19 at 18:00; Stop 07/31/19 at 00:10; Status DC Diltiazem HCl (Cardizem Iv Push) 10 mg 1X ONCE IVP Last administered on 0at 18:01; Start 07/30/19 at 18:00; Stop 07/30/19 at 18:01; Status DC Diltiazem HCl 125 mg/Sodium Chloride 125 ml @ 5 mls/hr 1X ONCE IV Last administered on 07/30/19at 18:36; Start 07/30/19 at 18:00; Stop 07/31/19 at 18:59; Status DC Lorazepam (Ativan Inj) 2 mg 1X ONCE IVP Last administered on 07/30/19at 18:35; Start 07/30/19 at 18:15; Stop 07/30/19 at 18:16; Status DC Lorazepam (Ativan Inj) 2 mg STK-MED ONCE .ROUTE ; Start 07/30/19 at 18:14; Stop 07/30/19 at 18:14; Status DC Digoxin (Lanoxin) 250 mcg 1X ONCE IV Last administered on 07/30/19at 18:53; Start 07/30/19 at 18:45; Stop 07/30/19 at 18:46; Status DC Amiodarone HCl 150 mg/Dextrose 103 ml @ 618 mls/hr 1X ONCE IV Last administered on 07/30/19at 20:07; Start 07/30/19 at 18:45; Stop 07/30/19 at 18:54; Status DC Amiodarone HCl 450 mg/Dextrose 259 ml @ 0 mls/hr CONT PRN IV SEE I/O RECORD Last administered on 07/30/19at 20:21; Start 07/30/19 at 18:45 Sodium Chloride 1,000 ml @ 1,000 mls/hr 1X ONCE IV Last administered on 07/30/19at 18:20; Start 07/30/19 at 18:45; Stop 07/31/19 at 02:15; Status DC Sodium Chloride 2,130 ml @ 2,130 mls/hr Q1H IV Last administered on 07/30/19at 19:02; Start 07/30/19 at 18:53; Stop 07/31/19 at 02:15; Status DC Piperacillin Sod/ Tazobactam Sod 4.5 gm/Sodium Chloride 100 ml @ 200 mls/hr 1X ONCE IV Last administered on 07/30/19at 19:06; Start 07/30/19 at 19:00; Stop 07/31/19 at 08:04; Status DC Vancomycin HCl (Vanco Per Pharmacy) 1 each 1X ONCE MC ; Start 07/30/19 at 19:00; Stop 07/31/19 at 08:04; Status DC Norepinephrine Bitartrate 8 mg/ Dextrose 258 ml @ 0 mls/hr CONT PRN IV PER PROTOCOL; Start 07/30/19 at 19:00; Stop 07/31/19 at 08:04; Status DC Potassium Chloride/Water 100 ml @ 100 mls/hr Q1H IV Last administered on 07/30/19at 21:31; Start 07/30/19 at 19:30; Stop 07/30/19 at 21:29; Status DC Vancomycin HCl 2 gm/Sodium Chloride 500 ml @ 250 mls/hr 1X ONCE IV Last administered on 07/30/19at 20:15; Start 07/30/19 at 19:15; Stop 07/30/19 at 21:14; Status DC Fentanyl Citrate (Fentanyl 2ml Vial) 25 mcg PRN Q1HR PRN IV SEE COMMENTS; Start 07/30/19 at 19:15; Stop 07/31/19 at 00:11; Status DC Fentanyl Citrate (Fentanyl 2ml Vial) 50 mcg PRN Q1HR PRN IV SEE COMMENTS; Start 07/30/19 at 19:15; Stop 07/31/19 at 00:11; Status DC Chlorhexidine Gluconate (Peridex) 15 ml BID MM Last administered on 08/06/19at 21:19; Start 07/30/19 at 21:00 Morphine Sulfate (Morphine Sulfate) 2 mg PRN Q1HR PRN IV SEE COMMENTS.; Start 07/30/19 at 19:15; Stop 07/31/19 at 00:11; Status DC Morphine Sulfate (Morphine Sulfate) 4 mg PRN Q1HR PRN IV SEE COMMENTS.; Start 07/30/19 at 19:15; Stop 07/31/19 at 00:11; Status DC Midazolam HCl 50 mg/Sodium Chloride 50 ml @ 0 mls/hr CONT PRN IV SEE PROTOCOL Last administered on 07/30/19at 20:40; Start 07/30/19 at 19:15; Stop 07/31/19 at 00:10; Status DC Acetaminophen (Tylenol Supp) 650 mg 1X ONCE VA Last administered on 07/30/19at 20:49; Start 07/30/19 at 20:15; Stop 07/30/19 at 20:16; Status DC Ondansetron HCl (Zofran) 4 mg PRN Q8HRS PRN IV NAUSEA/VOMITING; Start 07/30/19 at 20:30; Stop 07/31/19 at 20:29; Status DC Acetaminophen (Tylenol) 650 mg PRN Q4HRS PRN PO FEVER Last administered on 07/31/19at 12:49; Start 07/30/19 at 20:30; Stop 07/31/19 at 20:29; Status DC Heparin Sodium/ Dextrose 250 ml @ 0 mls/hr CONT PRN IV PER PROTOCOL Last administered on 08/07/19at 06:20; Start 07/30/19 at 20:45 Heparin Sodium (Porcine) (Heparin Sodium) 2,200 unit PRN Q6HRS PRN IV FOR UFH LEVEL LESS THAN 0.2 Last administered on 08/01/19at 15:42; Start 07/30/19 at 20:45 Info (Anti-Coagulation Monitoring By Pharmacy) 1 each PRN DAILY PRN MC SEE COMMENTS Last administered on 08/04/19at 15:55; Start 07/30/19 at 21:00 Etomidate (Amidate) 20 mg STK-MED ONCE IV ; Start 07/30/19 at 21:15; Stop 07/30/19 at 21:16; Status DC Rocuronium [place] (Zemuron) 50 mg STK-MED ONCE .ROUTE ; Start 07/30/19 at 21:16; Stop 07/30/19 at 21:16; Status DC Diltiazem HCl 125 mg/Sodium Chloride 125 ml @ 5 mls/hr CONT PRN IV SEE I/O RECORD; Start 07/30/19 at 22:30; Stop 07/31/19 at 06:01; Status DC Sodium Bicarbonate 100 meq/Dextrose 1,100 ml @ 75 mls/hr 1X ONCE IV Last administered on 07/31/19at 01:54; Start 07/30/19 at 23:00; Stop 07/31/19 at 13:39; Status DC Etomidate (Amidate) 20 mg 1X ONCE IV Last administered on 07/30/19at 19:27; Start 07/30/19 at 23:45; Stop 07/30/19 at 23:46; Status DC Rocuronium [place] (Zemuron) 50 mg 1X ONCE IV Last administered on 07/30/19at 19:28; Start 07/30/19 at 23:45; Stop 07/30/19 at 23:46; Status DC Rocuronium [place] (Zemuron) 50 mg 1X ONCE IV Last administered on 07/30/19at 19:28; Start 07/30/19 at 23:45; Stop 07/30/19 at 23:46; Status DC Digoxin (Lanoxin) 250 mcg 1X ONCE IV Last administered on 07/31/19at 00:12; Start 07/31/19 at 00:30; Stop 07/31/19 at 00:31; Status DC Heparin Sodium/ Dextrose 250 ml @ 0 mls/hr CONT PRN IV SEE I/O RECORD; Start 07/31/19 at 00:00; Status UNV Fentanyl Citrate 30 ml @ 0 mls/hr CONT PRN IV SEE PROTOCOL Last administered on 08/06/19at 06:48; Start 07/31/19 at 00:15 Midazolam HCl 50 mg/Sodium Chloride 50 ml @ 0 mls/hr CONT PRN IV SEE PROTOCOL Last administered on 08/06/19at 06:48; Start 07/31/19 at 00:15 Diltiazem HCl 125 mg/Sodium Chloride 125 ml @ 5 mls/hr CONT PRN IV SEE I/O RECORD Last administered on 08/01/19at 03:03; Start 07/31/19 at 01:00 Albuterol/ Ipratropium (Duoneb) 3 ml Q4HRS NEB Last administered on 08/07/19at 07:03; Start 07/31/19 at 04:00 Sodium Chloride 1,000 ml @ 120 mls/hr Q8H20M IV Last administered on 07/31/19at 02:30; Start 07/31/19 at 02:30; Stop 07/31/19 at 13:55; Status DC Vancomycin HCl (Vanco Per Pharmacy) 1 each PRN DAILY PRN MC SEE COMMENTS Last a dministered on 07/31/19at 03:30; Start 07/31/19 at 02:30; Stop 07/31/19 at 08:06; Status DC Vancomycin HCl 1.25 gm/Sodium Chloride 250 ml @ 167 mls/hr Q12H IV Last administered on 07/31/19at 07:57; Start 07/31/19 at 08:00; Stop 07/31/19 at 08:06; Status DC Vancomycin HCl (Vancomycin Trough Level) 1 each 1X ONCE MC ; Start 08/01/19 at 07:30; Stop 08/01/19 at 07:31; Status Cancel Micafungin Sodium 100 mg/Dextrose 100 ml @ 100 mls/hr Q24H IV Last administered on 08/07/19at 07:25; Start 07/31/19 at 08:00 Oseltamivir Phosphate (Tamiflu) 30 mg BID PO Last administered on 08/04/19at 21:02; Start 07/31/19 at 09:00; Stop 08/05/19 at 08:59; Status DC Linezolid/Dextrose 300 ml @ 300 mls/hr Q12HR IV Last administered on 08/04/19at 21:02; Start 07/31/19 at 09:00; Stop 08/05/19 at 08:02; Status DC Daptomycin 490 mg/ Sodium Chloride 50 ml @ 100 mls/hr Q24H IV Last administered on 07/31/19at 12:40; Start 07/31/19 at 10:00; Stop 08/01/19 at 09:01; Status DC Meropenem 1 gm/ Sodium Chloride 100 ml @ 200 mls/hr Q12HR IV Last administered on 08/07/19at 08:40; Start 07/31/19 at 09:00 Potassium Bicarbonate (Potassium Effervescent Tablet) 40 meq 1X ONCE PEG Last administered on 07/31/19at 10:54; Start 07/31/19 at 10:30; Stop 07/31/19 at 10:43; Status DC Famotidine (Pepcid Vial) 20 mg QHS IVP Last administered on 08/06/19at 21:19; Start 07/31/19 at 21:00 Albumin Human 100 ml @ 100 mls/hr TID IV Last administered on 08/02/19at 09:44; Start 07/31/19 at 14:30; Stop 08/02/19 at 09:59; Status DC Sodium Chloride 2,340 ml @ 2,340 mls/hr Q1H IV ; Start 07/31/19 at 14:48; Status UNV Sodium Chloride 500 ml @ 1,000 mls/hr PRN Q30MIN PRN IV SEE COMMENTS; Start at 15:00; Status UNV Dobutamine HCl/ Dextrose 250 ml @ 0 mls/hr CONT PRN IV SEE I/O RECORD; Start 07/31/19 at 15:00; Status UNV Ondansetron HCl (Zofran) 4 mg PRN Q6HRS PRN IV NAUSEA/VOMITING; Start 07/31/19 at 15:00 Prochlorperazine (Compazine) 25 mg PRN Q12HR PRN [place] NAUSEA/VOMITING; Start 07/31/19 at 15:00 Famotidine (Pepcid Vial) 20 mg BID IVP ; Start 07/31/19 at 21:00; Status UNV Sodium Chloride (Normal Saline Flush) 3 ml QSHIFT PRN IV AFTER MEDS AND BLOOD DRAWS; Start 07/31/19 at 15:00 Bisacodyl (Dulcolax Supp) 10 mg PRN DAILY PRN VA CONSTIPATION; Start 07/31/19 at 15:00 Thiamine HCl 100 mg/Dextrose 51 ml @ 102 mls/hr DAILY IV Last administered on 08/05/19at 10:15; Start 07/31/19 at 17:00; Stop 08/05/19 at 23:00; Status DC Vitamin A/Vitamin D (Vitamin A & D Ointment) 1 [place]ton PRN Q1HR PRN TP SKIN PROTECTION Last administered on 08/03/19at 08:14; Start 07/31/19 at 16:45 Daptomycin 490 mg/ Sodium Chloride 50 ml @ 100 mls/hr Q48H IV Last administered on 08/03/19at 11:19; Start 08/01/19 at 10:00; Stop 08/04/19 at 07:59; Status DC Furosemide (Lasix) 40 mg 1X ONCE IVP Last administered on 08/01/19at 22:14; Start 08/01/19 at 22:30; Stop 08/01/19 at 22:31; Status DC Potassium Bicarbonate (Potassium Effervescent Tablet) 20 meq 1X ONCE PEG Last administered on 08/01/19at 22:14; Start 08/01/19 at 22:30; Stop 08/01/19 at 22:31; Status DC Lidocaine HCl (Buffered Lidocaine 1%) 3 ml STK-MED ONCE .ROUTE ; Start 08/03/19 at 09:05; Stop 08/03/19 at 09:05; Status DC Lidocaine HCl (Buffered Lidocaine 1%) 3 ml 1X ONCE INJ Last administered on 08/03/19at 09:28; Start 08/03/19 at 09:30; Stop 08/03/19 at 09:31; Status DC Multivitamins/ Minerals Therapeutic (Centrum Multivit-Mineral Liq) 5 ml DAILY PEG Last administered on 08/06/19at 10:26; Start 08/03/19 at 12:00 Sodium Chloride 1,000 ml @ 1,000 mls/hr Q1H PRN IV hypotension; Start 08/03/19 at 13:31; Stop 08/03/19 at 19:30; Status DC Sodium Chloride 1,000 ml @ 400 mls/hr Q2H30M PRN IV PATENCY; Start 08/03/19 at 13:31; Stop 08/04/19 at 01:30; Status DC Info (PHARMACY MONITORING -- do not chart) 1 each PRN DAILY PRN MC SEE COMMENTS; Start 08/03/19 at 13:45; Status UNV Info (PHARMACY MONITORING -- do not chart) 1 each PRN DAILY PRN MC SEE COMMENTS; Start 08/03/19 at 13:45 Ondansetron HCl (Zofran) 4 mg PRN Q6HRS PRN IV NAUSEA/VOMITING; Start 08/04/19 at 07:00; Stop 08/05/19 at 06:59; Status DC Fentanyl Citrate (Fentanyl 2ml Vial) 25 mcg PRN Q5MIN PRN IV MILD PAIN 1-3; Start 08/04/19 at 07:00; Stop 08/05/19 at 06:59; Status DC Fentanyl Citrate (Fentanyl 2ml Vial) 50 mcg PRN Q5MIN PRN IV MODERATE TO SEVERE PAIN; Start 08/04/19 at 07:00; Stop 08/05/19 at 06:59; Status DC Ringer's Solution 1,000 ml @ 30 mls/hr Q24H IV ; Start 08/04/19 at 07:00; Stop 08/04/19 at 18:59; Status DC Prochlorperazine Edisylate (Compazine) 5 mg PACU PRN PRN IV NAUSEA, MRX1; Start 08/04/19 at 07:00; Stop 08/05/19 at 06:59; Status DC Cefazolin Sodium 1 gm/Sodium Chloride 500 ml @ 500 mls/hr 1X ONCE IRR ; Start 08/04/19 at 06:00; Stop 08/04/19 at 06:59; Status DC Metoprolol Tartrate (Lopressor Vial) 5 mg Q6HRS IVP Last administered on 08/07/19at 06:18; Start 08/05/19 at 18:00 Thiamine Mononitrate (Vitamin B-1) 100 mg DAILY PEG Last administered on 08/06/19at 10:26; Start 08/06/19 at 09:00 Sodium Chloride 1,000 ml @ 1,000 mls/hr Q1H PRN IV hypotension; Start 08/05/19 at 16:00; Stop 08/05/19 at 21:59; Status DC Sodium Chloride (Normal Saline Flush) 10 ml 1X PRN PRN IV AP catheter pack; St art 08/05/19 at 16:00; Stop 08/06/19 at 15:59; Status DC Sodium Chloride (Normal Saline Flush) 10 ml 1X PRN PRN IV [employer] catheter pack; Start 08/05/19 at 16:00; Stop 08/06/19 at 15:59; Status DC Info (PHARMACY MONITORING -- do not chart) 1 each PRN DAILY PRN MC SEE COMMENTS; Start 08/05/19 at 20:30 Info (PHARMACY MONITORING -- do not chart) 1 each PRN DAILY PRN MC SEE COMMENTS; Start 08/05/19 at 20:30; Status UNV Propofol 100 ml @ 0 mls/hr CONT PRN IV SEE PROTOCOL Last administered on 08/06/19at 13:51; Start 08/06/19 at 13:45 Active Scripts Active Proair Hfa (Albuterol Sulfate) 8.5 Gm Hfa.aer.ad 2 Puff IH PRN Q4-6HRS PRN 21 Days Tessalon Perle (Benzonatate) 100 Mg Capsule 1 Cap PO TID Prednisone 50 Mg Tablet 1 Tab PO DAILY Cyclobenzaprine Hcl 5 Mg Tablet 1 Tab PO TID Ibuprofen 800 Mg Tablet 800 Mg PO Q6-8HRS Zofran Odt (Ondansetron) 4 Mg Tab.rapdis 1 Tab SL Q8HRS Ultram (Tramadol Hcl) 50 Mg Tablet 1 Tab PO Q6HRS Vitals/I & O Vital Sign - Last 24 Hours 08/06/19 08/06/19 08/06/19 08/06/19 11:00 11:35 12:00 12:00 Temp 89.9 89.9 Pulse 86 86 Resp 22 21 B/P (MAP) 196/85 (122) 156/89 (111) Pulse Ox 98 98 98 O2 Delivery Ventilator Ventilator Mechanical Ventilator Ventilator 08/06/19 08/06/19 08/06/19 08/06/19 12:28 13:00 13:23 14:00 Pulse 92 90 89 Resp 22 B/P (MAP) 182/81 185/85 (118) 170/79 (109) Pulse Ox 98 98 98 O2 Delivery Ventilator Ventilator Ventilator 08/06/19 08/06/19 08/06/19 08/06/19 15:00 15:29 16:00 17:00 Temp 98.3 98.3 Pulse 86 90 Resp 20 20 B/P (MAP) 141/59 (86) 166/78 (107) Pulse Ox 99 100 99 O2 Delivery Ventilator Ventilator Mechanical Ventilator Ventilator 08/06/19 08/06/19 08/06/19 08/06/19 17:42 18:00 18:02 19:00 Pulse 78 92 80 Resp 20 20 B/P (MAP) 154/74 (100) 166/78 156/73 (100) Pulse Ox 100 99 100 O2 Delivery Ventilator Ventilator Ventilator 08/06/19 08/06/19 08/06/19 08/06/19 20:00 20:00 20:49 21:00 Temp 98.8 98.8 Pulse 82 86 Resp 20 20 B/P (MAP) 160/75 (103) 165/94 (117) Pulse Ox 100 100 100 O2 Delivery Ventilator Mechanical Ventilator Ventilator Ventilator 08/06/19 08/06/19 08/06/19 08/07/19 22:00 22:17 23:00 00:00 Pulse 90 85 Resp 20 20 B/P (MAP) 192/77 (115) 185/75 (111) Pulse Ox 100 98 100 O2 Delivery Ventilator Ventilator Ventilator Mechanical Ventilator 08/07/19 08/07/19 08/07/19 08/07/19 00:06 00:50 01:00 01:40 Temp 98.6 98.6 Pulse 88 84 Resp 20 B/P (MAP) 151/90 151/90 (110) Pulse Ox 100 100 100 O2 Delivery Ventilator Ventilator Ventilator 08/07/19 08/07/19 08/07/19 08/07/19 02:00 03:00 03:45 04:00 Temp 99.3 99.3 Pulse 86 84 80 Resp 20 20 20 B/P (MAP) 153/73 (99) 153/75 (101) 161/67 (98) Pulse Ox 100 100 100 100 O2 Delivery Ventilator Ventilator Ventilator Ventilator 08/07/19 08/07/19 08/07/19 08/07/19 04:00 05:00 05:59 06:00 Pulse 84 84 Resp 20 20 B/P (MAP) 176/78 (110) 180/72 (108) Pulse Ox 100 100 100 O2 Delivery Mechanical Ventilator Ventilator Ventilator Ventilator 08/07/19 08/07/19 08/07/19 08/07/19 06:18 07:00 07:03 08:00 Temp 99.6 99.6 Pulse 81 80 87 Resp 16 23 B/P (MAP) 180/72 155/74 (101) 173/95 (121) Pulse Ox 99 97 99 O2 Delivery Ventilator Ventilator Ventilator 08/07/19 08/07/19 09:00 09:11 Pulse 94 Resp 36 B/P (MAP) 180/82 (114) Pulse Ox 100 99 O2 Delivery Ventilator Ventilator Intake and Output 08/06/19 08/06/19 08/07/19 15:00 23:00 07:00 Intake Total 322 ml 376 ml Output Total 585 ml 505 ml 630 ml Balance -263 ml -129 ml -630 ml Nutrition Consultation Dietary Evaluation: Recommendations by RD: Dietary education by RD, Increase Calorie Intake, Protein supplementation Comments: REC switch TF formula to VitalAF, increase 10 ml q8 hrs as tolerated to goal rate 60 ml/hr w/100 ml water flushes q4 hrs Continue w/Javi BID (once in AM and once in PM) for wound healing, dissolve each packet in ~4 oz water to dissolve and flush tube w/~30 ml water before and after each packet Continue w/MVI for wound healing Expected Outcomes/Goals: New goal 08/02: TF infusion to meet >75% est needs - goal ongoing Malnutrition Findings: Food and Nutrition Intake (Mod: <75% est energy req 7days Body Fat Depletion (Non Severe: Mild Depletion Weight Status: Appropriate CORY SCHMIDT MD Aug 07, 2019 10:14
--- NOTE | 2019-08-07 10:26 | NUR ---
Orders received from Dr. Alejandre to extubate patient. Patient extubated at 1020 to 50% Venti Mask. Will titrate as patient tolerates.
--- NOTE | 2019-08-07 10:51 | PDOC ---
Provider Note Provider Note Vascular S: Patient was extubated today, remains on high flow O2. O: VS - HR 90, elevated temp at 99.6, RR 32, hypertensive Extubated on high flow O2 Opens eyes to verbal stimuli and tracks with eyes, but remains nonverbal and does not follow commands Discussed plan of care with RN A/P: Gangrene right 4th toe We have recommend right 4th toe amputation. Family was not present today at exam, but has thus far refused to give consent for toe amputation. Will await patient's continued improvement to further discuss with him and try to obtain consent when he is able to make decisions. KAEL GUZMAN Aug 07, 2019 10:51
[2019-08-07 12:11] LABS: FIO2 ABG 40
[2019-08-07] MEDS: ANTI-COAG MONITOR BY PHARMACY. MC PRN (16:50)
[2019-08-07] MEDS: hydrALAZINE 20 MG/ML VIAL. IVP PRN (18:13)
[2019-08-07] MEDS ORDERED: ACETAMINOPHEN 650 MG SUPP.RECT. PR PRN (19:30)
--- NOTE | 2019-08-07 19:40 | NUR ---
Day shift nurse advised this RN of patient's increase in impulsive and confused behavior. This RN personally observed pt hollering out trying to throw extremities over the bed. Dr. Summers paged at [phone]. Dr Summers paged back at [phone]. Dr. Summers updated on pt situation and condition, vitals, current medical interventions, allergies, and concerning behaviors. Dr. Summers gave this RN orders for soft restraints PRN, the utilization of a sitter should the need arise due to impulsiveness and confusion endangering patient safety. Bed alarm activated at this time, and measures being utilized to decrease stimuli to patient. Nurse supervisor tank house called at [phone] and informed of situation and orders obtained from provider. Nurse supervisor tank house advised in regards to restraint use, if patient becomes violent, we will call a code [id number] and will continue from that point. Will use less invasive measures to conserve patient safety until that time, if it should occur.
[2019-08-07] MEDS: FAMOTIDINE 20 MG/2 ML VIAL IVP SCH (20:51)
[2019-08-08] VITALS (24 sets, daily range): BP systolic 140–188; BP diastolic 62–80
[2019-08-08] MEDS: METOPROLOL TARTRATE 5 MG/5 ML VIAL. IVP SCH ×4 (00:15→17:41)
[2019-08-08] MEDS: IPRATRPIUM/ALBUTEROL 0.5/2.5MG 3 ML NEBU. NEB SCH ×7 (04:00→23:45)
--- NOTE | 2019-08-08 05:37 | RAD ---
PORTABLE CHEST 1V History: Respiratory failure Comparison: August 07, 2019 Findings: Multifocal pulmonary opacities, unchanged. Small bilateral pleural effusions, unchanged. Unchanged heart size. Interval extubation and removal of enteric tube. Stable right IJ central lines. No pneumothorax. Impression: 1. Interval extubation. 2. Otherwise, no significant interval change compared to prior. Electronically signed by: Tramaine Granado DO (08/08/2019 5:34 AM) [id number]
[2019-08-08 05:51] LABS: BASO # 0.1 x10^3/uL (0.0-0.2); BASO % 1 % (0-3); EOS # 0.3 x10^3/uL (0.0-0.7); EOS % 3 % (0-3); HEMATOCRIT 35.5 % (39.0-53.0); HEMOGLOBIN 11.9 g/dL (13.0-17.5); LYMPH % 19 % (24-48); MEAN CORPUSCULAR HEMOGLOBIN 32 pg (25-35); MEAN CORPUSCULAR HGB CONC 34 g/dL (31-37); MEAN CORPUSCULAR VOLUME 95 fL (79-100); MONO % 9 % (0-9); NEUT # 7.3 x10^3/uL (1.8-7.7); NEUT % 69 % (31-73); PLATELET COUNT 266 x10^3/uL (140-400); RED BLOOD COUNT 3.72 x10^6/uL (4.30-5.70); RED CELL DISTRIBUTION WIDTH 13.1 % (11.5-14.5); WHITE BLOOD COUNT 10.6 x10^3/uL (4.0-11.0)
[2019-08-08 06:07] LABS: ALBUMIN 2.1 g/dL (3.4-5.0); ALBUMIN/GLOBULIN RATIO 0.4 (1.0-1.7); CALCIUM 8.8 mg/dL (8.5-10.1); CREATININE 1.6 mg/dL (0.7-1.3); GFR 43.5; POTASSIUM 3.3 mmol/L (3.5-5.1); TOTAL BILIRUBIN 1.3 mg/dL (0.2-1.0); TOTAL PROTEIN 6.8 g/dL (6.4-8.2)
[2019-08-08] MEDS: HEPARIN 25,000UTS/250ML PREMIX 250 ML IV PRN ×2 (06:46→16:32)
[2019-08-08] MEDS: MICAFUNGIN 100 MG in IV DEXTROSE 5% 100ML 100 ML IV SCH (08:02)
[2019-08-08] MEDS: MULTIVITAMINS,THERAPEUTIC 5 ML ORAL LIQUID. PEG SCH (08:02)
[2019-08-08] MEDS: THIAMINE 100 MG TABLET. PEG SCH (08:02)
[2019-08-08] MEDS: MEROPENEM 1 GM in IV NORMAL SALINE 100ML 100 ML IV SCH ×2 (08:02→20:59)
--- NOTE | 2019-08-08 08:52 | PDOC ---
Infectious Disease Note Subjective Subjective Nonverbal No fevers last 24 hours ROS ROS Unobtainable Vital Sign Vital Signs Vital Signs Date Time Temp Pulse Resp B/P (MAP) Pulse Ox O2 Delivery O2 Flow Rate FiO2 08/08/19 08:14 94 Nasal Cannula 3.0 08/08/19 07:00 51 25 146/74 (98) 08/08/19 04:00 98.2 98.2 Physical Exam PHYSICAL EXAM GENERAL: Awake, nonverbal HEENT: Pupils equal, Oral cavity very dry NECK: Supple. No JVD LUNGS: Nonlabored HEART: S1, S2, irregular rhythm. ABDOMEN: Obese, soft, mildly distended : Valladares in place, 1 + scrotal swelling, erythema, EXTREMITIES: Ischemic changes right foot with 4 th toe gangrene toe. Left foot pink. Rooke boots bilaterally DERMATOLOGIC: No generalized rash. RIJ without signs of complications . R HD cath (08/02) Labs Lab Laboratory Tests Test 08/07/19 10:00 08/08/19 05:00 08/08/19 05:17 O2 Saturation 99 % (92-99) Arterial Blood pH 7.51 (7.35-7.45) Arterial Blood pCO2 at Patient Temp 34 mmHg (35-46) Arterial Blood pO2 at Patient Temp 134 mmHg (65-108) Arterial Blood HCO3 27 mmol/L (21-28) Arterial Blood Base Excess 4 mmol/L (-3-3) FiO2 40 White Blood Count 10.6 x10^3/uL (4.0-11.0) Red Blood Count 3.72 x10^6/uL (4.30-5.70) Hemoglobin 11.9 g/dL (13.0-17.5) Hematocrit 35.5 % (39.0-53.0) Mean Corpuscular Volume 95 fL (79-100) Mean Corpuscular Hemoglobin 32 pg (25-35) Mean Corpuscular Hemoglobin Concent 34 g/dL (31-37) Red Cell Distribution Width 13.1 % (11.5-14.5) Platelet Count 266 x10^3/uL (140-400) Neutrophils (%) (Auto) 69 % (31-73) Lymphocytes (%) (Auto) 19 % (24-48) Monocytes (%) (Auto) 9 % (0-9) Eosinophils (%) (Auto) 3 % (0-3) Basophils (%) (Auto) 1 % (0-3) Neutrophils # (Auto) 7.3 x10^3/uL (1.8-7.7) Lymphocytes # (Auto) 2.0 x10^3/uL (1.0-4.8) Monocytes # (Auto) 1.0 x10^3/uL (0.0-1.1) Eosinophils # (Auto) 0.3 x10^3/uL (0.0-0.7) Basophils # (Auto) 0.1 x10^3/uL (0.0-0.2) Sodium Level 150 mmol/L (136-145) Potassium Level 3.3 mmol/L (3.5-5.1) Chloride Level 111 mmol/L (98-107) Carbon Dioxide Level 30 mmol/L (21-32) Anion Gap 9 (6-14) Blood Urea Nitrogen 58 mg/dL (8-26) Creatinine 1.6 mg/dL (0.7-1.3) Estimated GFR (Cockcroft-Gault) 43.5 BUN/Creatinine Ratio 36 (6-20) Glucose Level 90 mg/dL (70-99) Calcium Level 8.8 mg/dL (8.5-10.1) Total Bilirubin 1.3 mg/dL (0.2-1.0) Aspartate Amino Transf (AST/SGOT) 56 U/L (15-37) Alanine Aminotransferase (ALT/SGPT) 16 U/L (16-63) Alkaline Phosphatase 87 U/L (46-116) Total Protein 6.8 g/dL (6.4-8.2) Albumin 2.1 g/dL (3.4-5.0) Albumin/Globulin Ratio 0.4 (1.0-1.7) Heparin Anti-Xa Act, Unfractionated 0.14 IU/mL (0.30-0.70) CXR, 08/07 Impression: 1. Interval extubation. 2. Otherwise, no significant interval change compared to prior. Micro 07/31. SPUTUM CULT RES 1 Final Mold isolated. Objective Assessment Septic shock procalcitonin 25.26 Strep pneumo sepsis (4 of 4 bottles), 07/30 ? source.- ?lung with strep pneumo ? foot -Repeat BC and 08/01 neg to date. TTE (07/31) no evidence veg Leukocytosis - improved Influenza A, respiratory tract infection. Treated Acute hypoxic respiratory failure with pneumonia, status post intubation. 07/31. strep pneumo & GPR - no identified on gram stain/mold. Severe peripheral vascular disease, right foot ischemia/gangrene Encephalopathy. Lactic acidosis. Acute kidney injury Hyperbilirubinemia. LFT elevation. Atrial fibrillation with rapid ventricular response, on amiodarone. Homelessness. Groin dermatitis. Tinea Hypernatremia I Plan Plan of Care Cont Merrem, and micafungin Off Daptomycin and Zyvox Follow up labs and cultures Maintain aspiration precautions Surgery on toe- not performed as unable to get consent D/w micro, will check if work-up for mold ID is being done Critically ill D/w nursing Attending Co-Sign The patient was seen and interviewed as well as examined at the bedside. The chart was reviewed. The case was discussed. Agree with the plan of care. EVELINA CORREA APRN Aug 08, 2019 08:52 ROBERTO CHAWLA MD Aug 08, 2019 11:31
--- NOTE | 2019-08-08 09:12 | PDOC ---
PULMONARY PROGRESS NOTES Subjective extubated on 08/07/2019 more awake today, Alert X1 Vitals Vital Signs Date Time Temp Pulse Resp B/P (MAP) Pulse Ox O2 Delivery O2 Flow Rate FiO2 08/08/19 08:14 94 Nasal Cannula 3.0 08/08/19 08:00 99.3 54 23 150/69 (96) 99.3 General: Alert Lungs: Clear Cardiovascular: S1, S2 Abdomen: Soft Extremities: Other (PVD) Skin: Warm Labs Laboratory Tests Test 08/06/19 13:43 08/06/19 20:00 08/06/19 21:45 08/07/19 03:50 Heparin Anti-Xa Act, Unfractionated 0.34 IU/mL (0.30-0.70) 1.01 IU/mL (0.30-0.70) 0.53 IU/mL (0.30-0.70) 0.53 IU/mL (0.30-0.70) White Blood Count 13.3 x10^3/uL (4.0-11.0) Red Blood Count 3.76 x10^6/uL (4.30-5.70) Hemoglobin 11.8 g/dL (13.0-17.5) Hematocrit 35.7 % (39.0-53.0) Mean Corpuscular Volume 95 fL (79-100) Mean Corpuscular Hemoglobin 31 pg (25-35) Mean Corpuscular Hemoglobin Concent 33 g/dL (31-37) Red Cell Distribution Width 13.8 % (11.5-14.5) Platelet Count 240 x10^3/uL (140-400) Neutrophils (%) (Auto) 78 % (31-73) Lymphocytes (%) (Auto) 13 % (24-48) Monocytes (%) (Auto) 6 % (0-9) Eosinophils (%) (Auto) 3 % (0-3) Basophils (%) (Auto) 1 % (0-3) Neutrophils # (Auto) 10.3 x10^3/uL (1.8-7.7) Lymphocytes # (Auto) 1.7 x10^3/uL (1.0-4.8) Monocytes # (Auto) 0.8 x10^3/uL (0.0-1.1) Eosinophils # (Auto) 0.4 x10^3/uL (0.0-0.7) Basophils # (Auto) 0.1 x10^3/uL (0.0-0.2) Sodium Level 144 mmol/L (136-145) Potassium Level 3.9 mmol/L (3.5-5.1) Chloride Level 106 mmol/L (98-107) Carbon Dioxide Level 29 mmol/L (21-32) Anion Gap 9 (6-14) Blood Urea Nitrogen 62 mg/dL (8-26) Creatinine 2.0 mg/dL (0.7-1.3) Estimated GFR (Cockcroft-Gault) 33.6 Glucose Level 90 mg/dL (70-99) Calcium Level 8.8 mg/dL (8.5-10.1) Phosphorus Level 5.1 mg/dL (2.6-4.7) Albumin 2.1 g/dL (3.4-5.0) Test 08/07/19 07:00 08/07/19 10:00 08/08/19 05:00 08/08/19 05:17 O2 Saturation 98 % (92-99) 99 % (92-99) Arterial Blood pH 7.49 (7.35-7.45) 7.51 (7.35-7.45) Arterial Blood pCO2 at Patient Temp 32 mmHg (35-46) 34 mmHg (35-46) Arterial Blood pO2 at Patient Temp 118 mmHg (65-108) 134 mmHg (65-108) Arterial Blood HCO3 23 mmol/L (21-28) 27 mmol/L (21-28) Arterial Blood Base Excess 1 mmol/L (-3-3) 4 mmol/L (-3-3) FiO2 40 40 White Blood Count 10.6 x10^3/uL (4.0-11.0) Red Blood Count 3.72 x10^6/uL (4.30-5.70) Hemoglobin 11.9 g/dL (13.0-17.5) Hematocrit 35.5 % (39.0-53.0) Mean Corpuscular Volume 95 fL (79-100) Mean Corpuscular Hemoglobin 32 pg (25-35) Mean Corpuscular Hemoglobin Concent 34 g/dL (31-37) Red Cell Distribution Width 13.1 % (11.5-14.5) Platelet Count 266 x10^3/uL (140-400) Neutrophils (%) (Auto) 69 % (31-73) Lymphocytes (%) (Auto) 19 % (24-48) Monocytes (%) (Auto) 9 % (0-9) Eosinophils (%) (Auto) 3 % (0-3) Basophils (%) (Auto) 1 % (0-3) Neutrophils # (Auto) 7.3 x10^3/uL (1.8-7.7) Lymphocytes # (Auto) 2.0 x10^3/uL (1.0-4.8) Monocytes # (Auto) 1.0 x10^3/uL (0.0-1.1) Eosinophils # (Auto) 0.3 x10^3/uL (0.0-0.7) Basophils # (Auto) 0.1 x10^3/uL (0.0-0.2) Sodium Level 150 mmol/L (136-145) Potassium Level 3.3 mmol/L (3.5-5.1) Chloride Level 111 mmol/L (98-107) Carbon Dioxide Level 30 mmol/L (21-32) Anion Gap 9 (6-14) Blood Urea Nitrogen 58 mg/dL (8-26) Creatinine 1.6 mg/dL (0.7-1.3) Estimated GFR (Cockcroft-Gault) 43.5 BUN/Creatinine Ratio 36 (6-20) Glucose Level 90 mg/dL (70-99) Calcium Level 8.8 mg/dL (8.5-10.1) Total Bilirubin 1.3 mg/dL (0.2-1.0) Aspartate Amino Transf (AST/SGOT) 56 U/L (15-37) Alanine Aminotransferase (ALT/SGPT) 16 U/L (16-63) Alkaline Phosphatase 87 U/L (46-116) Total Protein 6.8 g/dL (6.4-8.2) Albumin 2.1 g/dL (3.4-5.0) Albumin/Globulin Ratio 0.4 (1.0-1.7) Heparin Anti-Xa Act, Unfractionated 0.14 IU/mL (0.30-0.70) Test 08/08/19 08:25 Heparin Anti-Xa Act, Unfractionated 0.39 IU/mL (0.30-0.70) Laboratory Tests Test 08/07/19 10:00 08/08/19 05:00 08/08/19 05:17 08/08/19 08:25 O2 Saturation 99 % (92-99) Arterial Blood pH 7.51 (7.35-7.45) Arterial Blood pCO2 at Patient Temp 34 mmHg (35-46) Arterial Blood pO2 at Patient Temp 134 mmHg (65-108) Arterial Blood HCO3 27 mmol/L (21-28) Arterial Blood Base Excess 4 mmol/L (-3-3) FiO2 40 White Blood Count 10.6 x10^3/uL (4.0-11.0) Red Blood Count 3.72 x10^6/uL (4.30-5.70) Hemoglobin 11.9 g/dL (13.0-17.5) Hematocrit 35.5 % (39.0-53.0) Mean Corpuscular Volume 95 fL (79-100) Mean Corpuscular Hemoglobin 32 pg (25-35) Mean Corpuscular Hemoglobin Concent 34 g/dL (31-37) Red Cell Distribution Width 13.1 % (11.5-14.5) Platelet Count 266 x10^3/uL (140-400) Neutrophils (%) (Auto) 69 % (31-73) Lymphocytes (%) (Auto) 19 % (24-48) Monocytes (%) (Auto) 9 % (0-9) Eosinophils (%) (Auto) 3 % (0-3) Basophils (%) (Auto) 1 % (0-3) Neutrophils # (Auto) 7.3 x10^3/uL (1.8-7.7) Lymphocytes # (Auto) 2.0 x10^3/uL (1.0-4.8) Monocytes # (Auto) 1.0 x10^3/uL (0.0-1.1) Eosinophils # (Auto) 0.3 x10^3/uL (0.0-0.7) Basophils # (Auto) 0.1 x10^3/uL (0.0-0.2) Sodium Level 150 mmol/L (136-145) Potassium Level 3.3 mmol/L (3.5-5.1) Chloride Level 111 mmol/L (98-107) Carbon Dioxide Level 30 mmol/L (21-32) Anion Gap 9 (6-14) Blood Urea Nitrogen 58 mg/dL (8-26) Creatinine 1.6 mg/dL (0.7-1.3) Estimated GFR (Cockcroft-Gault) 43.5 BUN/Creatinine Ratio 36 (6-20) Glucose Level 90 mg/dL (70-99) Calcium Level 8.8 mg/dL (8.5-10.1) Total Bilirubin 1.3 mg/dL (0.2-1.0) Aspartate Amino Transf (AST/SGOT) 56 U/L (15-37) Alanine Aminotransferase (ALT/SGPT) 16 U/L (16-63) Alkaline Phosphatase 87 U/L (46-116) Total Protein 6.8 g/dL (6.4-8.2) Albumin 2.1 g/dL (3.4-5.0) Albumin/Globulin Ratio 0.4 (1.0-1.7) Heparin Anti-Xa Act, Unfractionated 0.14 IU/mL (0.30-0.70) 0.39 IU/mL (0.30-0.70) Medications Active Scripts Medications Dose Route/Sig Max Daily Dose Days Date Category Proair Hfa (Albuterol Sulfate) 8.5 Gm Hfa.aer.ad 2 Puff IH PRN Q4-6HRS PRN 21 07/25/19 Rx Tessalon Perle (Benzonatate) 100 Mg Capsule 1 Cap PO TID 07/25/19 Rx Prednisone 50 Mg Tablet 1 Tab PO DAILY 07/25/19 Rx Cyclobenzaprine Hcl 5 Mg Tablet 1 Tab PO TID 03/21/17 Rx Ibuprofen 800 Mg Tablet 800 Mg PO Q6-8HRS 03/21/17 Rx Zofran Odt (Ondansetron) 4 Mg Tab.rapdis 1 Tab SL Q8HRS 01/07/17 Rx Ultram (Tramadol Hcl) 50 Mg Tablet 1 Tab PO Q6HRS 01/29/16 Rx Comments CXR 3/ CHF/ EFFUSION Impression . IMPRESSION: 1. Acute hypoxemic respiratory failure. MULTIFACTORIAL 2. Sepsis. 3. Pneumonia, suspect gram-negative, possibly gram-positive. 4. Influenza A. 5. New onset atrial fibrillation. 6. Peripheral vascular disease with possible peripheral emboli. 7. Metabolic acidosis. 8. Acute renal failure. 9. Severe protein malnutrition, present upon admission. 10. Elevated total bilirubin. 11. Abnormal cxr/ CHF Plan . extubated on 08/06, remains on N/C, cont. supplemental oxygent o keep sats above 92% Nebs Follow nephrology recs-- sodium is 150 today Antibiotics per ID cont. IV heparin and follow vascular surgery recs -- no alert and oriented to sign consent at this time, hope mentation will continue to improve CXR reviewed D/W INEZ PEÑA MD Aug 08, 2019 09:12
--- NOTE | 2019-08-08 10:52 | PDOC ---
PROGRESS NOTES History of Present Illness History of Present Illness VTE Prophylaxis Ordered VTE Prophylaxis Devices: Contraindicated VTE Pharmacological Prophylaxi: Yes Assessment/Plan Assessment/Plan impression 1. ACUTE HYPOXIC RESPIRATORY FAILURE 2. INFLUENZA A 3. Sepsis 4, PNA (pneumonia) 5. Altered mental status 6. ischemic right 4th toe 7. SONIA 8. a fib rvr 9. severe sepsis 10. homeless, self neglect due to lack of funds 11. 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 LABILE HTN plan admit ICU BED CONSULT PULM CONSULT ID Daptomycin and Merrem and Tamiflu renally dosed Zyvox Micafungin, for groin dermatitis, // yeast. VENT SUPPORT CONSULT NEUROLOGY dvt prophylaxis vascular surgery FOLLOWING Nephrology consult cardiology consult cardizem drip IV HYDRALAZINE 10 MG Q 4 HRS PRN BP SUPPORT Let tissues demarcate and possibly areas heal. . Will continue heparin drip and Rooke boots. Family refuses to give consent for toe amputation 08/06 GUARDED PROGNOSIS extubated 08/07/19 AM Interval extubation. 08/07 32 min cc time Vitals Vitals Vital Signs Date Time Temp Pulse Resp B/P (MAP) Pulse Ox O2 Delivery O2 Flow Rate FiO2 08/08/19 10:00 91 25 159/72 (101) 97 Nasal Cannula 2.0 08/08/19 08:00 99.3 99.3 Physical Exam Physical Exam GENERAL: Awake, HEENT: Pupils equal, NECK: Supple. No JVD LUNGS: Nonlabored HEART: S1, S2, irregular rhythm. ABDOMEN: Obese, soft, mildly distended : Valladares in place, 1 + scrotal swelling, erythema, EXTREMITIES: Ischemic changes right foot with 4 th toe gangrene toe. Left foot pink. Rooke boots bilaterally DERMATOLOGIC: No generalized rash. RIJ without signs of complications . R HD cath (08/02) General: Alert, Oriented X3, Cooperative, No acute distress, Other (intubated) Heart: Regular rate, Normal S1, Other (irregular rhythm) Lungs: Clear Abdomen: Normal bowel sounds, Soft, No tenderness Extremities: No clubbing, No cyanosis, Other (ischemic right 4th toe) Skin: Other (right 4th toe lesion) Labs LABS PORTABLE CHEST 1V History: Respiratory failure Comparison: August 07, 2019 Findings: Multifocal pulmonary opacities, unchanged. Small bilateral pleural effusions, unchanged. Unchanged heart size. Interval extubation and removal of enteric tube. Stable right IJ central lines. No pneumothorax. Impression: 1. Interval extubation. 2. Otherwise, no significant interval change compared to prior. Electronically signed by: Tramaine Davis DO (08/08/2019 5:34 AM) [id number] DICTATED and SIGNED BY: TRAMAINE DAVIS DO DATE: 08/08/19 0534 Bedside Swallow Evaluation completed. Please refer to full report in interventi on section for additional information. Impressions: Oropharyngeal dysphagia consistent w/ laryngeal dysfunction post 9 day intubation compounded by decreased cognitive status and confusion. Pt w/ difficulty managing his own secretions and w/ s/s aspiration w/ minimal PO trials. No safe consistency identified w/ need/length of time for NPO unknown at this time. Recommendations: Strict NPO. Aggressive oral care. ST f/u for dysphagia and to determine readiness for PO. d/w Yoshi. RN; precautions posted in room. Laboratory Tests Test 08/08/19 05:00 08/08/19 05:17 08/08/19 08:25 White Blood Count 10.6 x10^3/uL (4.0-11.0) Red Blood Count 3.72 x10^6/uL (4.30-5.70) Hemoglobin 11.9 g/dL (13.0-17.5) Hematocrit 35.5 % (39.0-53.0) Mean Corpuscular Volume 95 fL (79-100) Mean Corpuscular Hemoglobin 32 pg (25-35) Mean Corpuscular Hemoglobin Concent 34 g/dL (31-37) Red Cell Distribution Width 13.1 % (11.5-14.5) Platelet Count 266 x10^3/uL (140-400) Neutrophils (%) (Auto) 69 % (31-73) Lymphocytes (%) (Auto) 19 % (24-48) Monocytes (%) (Auto) 9 % (0-9) Eosinophils (%) (Auto) 3 % (0-3) Basophils (%) (Auto) 1 % (0-3) Neutrophils # (Auto) 7.3 x10^3/uL (1.8-7.7) Lymphocytes # (Auto) 2.0 x10^3/uL (1.0-4.8) Monocytes # (Auto) 1.0 x10^3/uL (0.0-1.1) Eosinophils # (Auto) 0.3 x10^3/uL (0.0-0.7) Basophils # (Auto) 0.1 x10^3/uL (0.0-0.2) Sodium Level 150 mmol/L (136-145) Potassium Level 3.3 mmol/L (3.5-5.1) Chloride Level 111 mmol/L (98-107) Carbon Dioxide Level 30 mmol/L (21-32) Anion Gap 9 (6-14) Blood Urea Nitrogen 58 mg/dL (8-26) Creatinine 1.6 mg/dL (0.7-1.3) Estimated GFR (Cockcroft-Gault) 43.5 BUN/Creatinine Ratio 36 (6-20) Glucose Level 90 mg/dL (70-99) Calcium Level 8.8 mg/dL (8.5-10.1) Total Bilirubin 1.3 mg/dL (0.2-1.0) Aspartate Amino Transf (AST/SGOT) 56 U/L (15-37) Alanine Aminotransferase (ALT/SGPT) 16 U/L (16-63) Alkaline Phosphatase 87 U/L (46-116) Total Protein 6.8 g/dL (6.4-8.2) Albumin 2.1 g/dL (3.4-5.0) Albumin/Globulin Ratio 0.4 (1.0-1.7) Heparin Anti-Xa Act, Unfractionated 0.14 IU/mL (0.30-0.70) 0.39 IU/mL (0.30-0.70) Assessment and Plan Assessmemt and Plan Problems Medical Problems: (1) Altered mental status Status: Acute Comment Review of Relevant I have reviewed the following items hay (where applicable) has been applied. Labs Laboratory Tests Test 08/06/19 13:43 08/06/19 20:00 08/06/19 21:45 08/07/19 03:50 Heparin Anti-Xa Act, Unfractionated 0.34 IU/mL (0.30-0.70) 1.01 IU/mL (0.30-0.70) 0.53 IU/mL (0.30-0.70) 0.53 IU/mL (0.30-0.70) White Blood Count 13.3 x10^3/uL (4.0-11.0) Red Blood Count 3.76 x10^6/uL (4.30-5.70) Hemoglobin 11.8 g/dL (13.0-17.5) Hematocrit 35.7 % (39.0-53.0) Mean Corpuscular Volume 95 fL (79-100) Mean Corpuscular Hemoglobin 31 pg (25-35) Mean Corpuscular Hemoglobin Concent 33 g/dL (31-37) Red Cell Distribution Width 13.8 % (11.5-14.5) Platelet Count 240 x10^3/uL (140-400) Neutrophils (%) (Auto) 78 % (31-73) Lymphocytes (%) (Auto) 13 % (24-48) Monocytes (%) (Auto) 6 % (0-9) Eosinophils (%) (Auto) 3 % (0-3) Basophils (%) (Auto) 1 % (0-3) Neutrophils # (Auto) 10.3 x10^3/uL (1.8-7.7) Lymphocytes # (Auto) 1.7 x10^3/uL (1.0-4.8) Monocytes # (Auto) 0.8 x10^3/uL (0.0-1.1) Eosinophils # (Auto) 0.4 x10^3/uL (0.0-0.7) Basophils # (Auto) 0.1 x10^3/uL (0.0-0.2) Sodium Level 144 mmol/L (136-145) Potassium Level 3.9 mmol/L (3.5-5.1) Chloride Level 106 mmol/L (98-107) Carbon Dioxide Level 29 mmol/L (21-32) Anion Gap 9 (6-14) Blood Urea Nitrogen 62 mg/dL (8-26) Creatinine 2.0 mg/dL (0.7-1.3) Estimated GFR (Cockcroft-Gault) 33.6 Glucose Level 90 mg/dL (70-99) Calcium Level 8.8 mg/dL (8.5-10.1) Phosphorus Level 5.1 mg/dL (2.6-4.7) Albumin 2.1 g/dL (3.4-5.0) Test 08/07/19 07:00 08/07/19 10:00 08/08/19 05:00 08/08/19 05:17 O2 Saturation 98 % (92-99) 99 % (92-99) Arterial Blood pH 7.49 (7.35-7.45) 7.51 (7.35-7.45) Arterial Blood pCO2 at Patient Temp 32 mmHg (35-46) 34 mmHg (35-46) Arterial Blood pO2 at Patient Temp 118 mmHg (65-108) 134 mmHg (65-108) Arterial Blood HCO3 23 mmol/L (21-28) 27 mmol/L (21-28) Arterial Blood Base Excess 1 mmol/L (-3-3) 4 mmol/L (-3-3) FiO2 40 40 White Blood Count 10.6 x10^3/uL (4.0-11.0) Red Blood Count 3.72 x10^6/uL (4.30-5.70) Hemoglobin 11.9 g/dL (13.0-17.5) Hematocrit 35.5 % (39.0-53.0) Mean Corpuscular Volume 95 fL (79-100) Mean Corpuscular Hemoglobin 32 pg (25-35) Mean Corpuscular Hemoglobin Concent 34 g/dL (31-37) Red Cell Distribution Width 13.1 % (11.5-14.5) Platelet Count 266 x10^3/uL (140-400) Neutrophils (%) (Auto) 69 % (31-73) Lymphocytes (%) (Auto) 19 % (24-48) Monocytes (%) (Auto) 9 % (0-9) Eosinophils (%) (Auto) 3 % (0-3) Basophils (%) (Auto) 1 % (0-3) Neutrophils # (Auto) 7.3 x10^3/uL (1.8-7.7) Lymphocytes # (Auto) 2.0 x10^3/uL (1.0-4.8) Monocytes # (Auto) 1.0 x10^3/uL (0.0-1.1) Eosinophils # (Auto) 0.3 x10^3/uL (0.0-0.7) Basophils # (Auto) 0.1 x10^3/uL (0.0-0.2) Sodium Level 150 mmol/L (136-145) Potassium Level 3.3 mmol/L (3.5-5.1) Chloride Level 111 mmol/L (98-107) Carbon Dioxide Level 30 mmol/L (21-32) Anion Gap 9 (6-14) Blood Urea Nitrogen 58 mg/dL (8-26) Creatinine 1.6 mg/dL (0.7-1.3) Estimated GFR (Cockcroft-Gault) 43.5 BUN/Creatinine Ratio 36 (6-20) Glucose Level 90 mg/dL (70-99) Calcium Level 8.8 mg/dL (8.5-10.1) Total Bilirubin 1.3 mg/dL (0.2-1.0) Aspartate Amino Transf (AST/SGOT) 56 U/L (15-37) Alanine Aminotransferase (ALT/SGPT) 16 U/L (16-63) Alkaline Phosphatase 87 U/L (46-116) Total Protein 6.8 g/dL (6.4-8.2) Albumin 2.1 g/dL (3.4-5.0) Albumin/Globulin Ratio 0.4 (1.0-1.7) Heparin Anti-Xa Act, Unfractionated 0.14 IU/mL (0.30-0.70) Test 08/08/19 08:25 Heparin Anti-Xa Act, Unfractionated 0.39 IU/mL (0.30-0.70) Laboratory Tests Test 08/08/19 05:00 08/08/19 05:17 08/08/19 08:25 White Blood Count 10.6 x10^3/uL (4.0-11.0) Red Blood Count 3.72 x10^6/uL (4.30-5.70) Hemoglobin 11.9 g/dL (13.0-17.5) Hematocrit 35.5 % (39.0-53.0) Mean Corpuscular Volume 95 fL (79-100) Mean Corpuscular Hemoglobin 32 pg (25-35) Mean Corpuscular Hemoglobin Concent 34 g/dL (31-37) Red Cell Distribution Width 13.1 % (11.5-14.5) Platelet Count 266 x10^3/uL (140-400) Neutrophils (%) (Auto) 69 % (31-73) Lymphocytes (%) (Auto) 19 % (24-48) Monocytes (%) (Auto) 9 % (0-9) Eosinophils (%) (Auto) 3 % (0-3) Basophils (%) (Auto) 1 % (0-3) Neutrophils # (Auto) 7.3 x10^3/uL (1.8-7.7) Lymphocytes # (Auto) 2.0 x10^3/uL (1.0-4.8) Monocytes # (Auto) 1.0 x10^3/uL (0.0-1.1) Eosinophils # (Auto) 0.3 x10^3/uL (0.0-0.7) Basophils # (Auto) 0.1 x10^3/uL (0.0-0.2) Sodium Level 150 mmol/L (136-145) Potassium Level 3.3 mmol/L (3.5-5.1) Chloride Level 111 mmol/L (98-107) Carbon Dioxide Level 30 mmol/L (21-32) Anion Gap 9 (6-14) Blood Urea Nitrogen 58 mg/dL (8-26) Creatinine 1.6 mg/dL (0.7-1.3) Estimated GFR (Cockcroft-Gault) 43.5 BUN/Creatinine Ratio 36 (6-20) Glucose Level 90 mg/dL (70-99) Calcium Level 8.8 mg/dL (8.5-10.1) Total Bilirubin 1.3 mg/dL (0.2-1.0) Aspartate Amino Transf (AST/SGOT) 56 U/L (15-37) Alanine Aminotransferase (ALT/SGPT) 16 U/L (16-63) Alkaline Phosphatase 87 U/L (46-116) Total Protein 6.8 g/dL (6.4-8.2) Albumin 2.1 g/dL (3.4-5.0) Albumin/Globulin Ratio 0.4 (1.0-1.7) Heparin Anti-Xa Act, Unfractionated 0.14 IU/mL (0.30-0.70) 0.39 IU/mL (0.30-0.70) Microbiology 08/02/19 Blood Culture - Final, Complete NO GROWTH AFTER 5 DAYS 07/31/19 - Final, Complete 07/31/19 - Final, Complete 07/31/19 - Final, Complete 07/31/19 Gram Stain Evaluation - Final, Complete 07/31/19 Sputum Culture - Final, Complete 07/31/19 Sputum Result 1 - Final, Complete 07/30/19 Urine Culture - Final, Complete 07/30/19 Urine Culture Result 1 (SONIA) - Final, Complete Medications Current Medications Albuterol/ Ipratropium (Duoneb) 3 ml 1X ONCE NEB Last administered on 07/30/19at 18:00; Start 07/30/19 at 18:00; Stop 07/30/19 at 18:01; Status DC Albuterol Sulfate (Ventolin Neb Soln) 10 mg 1X ONCE CONT NEB Last administered on 07/30/19at 18:00; Start 07/30/19 at 18:00; Stop 07/30/19 at 18:01; Status DC Morphine Sulfate (Morphine Sulfate) 2 mg PRN Q15MIN PRN IV/SQ PAIN GREATER THAN 3/10 Last administered on 07/30/19at 18:08; Start 07/30/19 at 18:00; Stop 07/31/19 at 00:10; Status DC Diltiazem HCl (Cardizem Iv Push) 10 mg 1X ONCE IVP Last administered on 07/30/19at 18:01; Start 07/30/19 at 18:00; Stop 07/30/19 at 18:01; Status DC Diltiazem HCl 125 mg/Sodium Chloride 125 ml @ 5 mls/hr 1X ONCE IV Last administered on 07/30/19at 18:36; Start 07/30/19 at 18:00; Stop 07/31/19 at 18:59; Status DC Lorazepam (Ativan Inj) 2 mg 1X ONCE IVP Last administered on 07/30/19at 18:35; Start 07/30/19 at 18:15; Stop 07/30/19 at 18:16; Status DC Lorazepam (Ativan Inj) 2 mg STK-MED ONCE .ROUTE ; Start 07/30/19 at 18:14; Stop 07/30/19 at 18:14; Status DC Digoxin (Lanoxin) 250 mcg 1X ONCE IV Last administered on 07/30/19at 18:53; Start 07/30/19 at 18:45; Stop 07/30/19 at 18:46; Status DC Amiodarone HCl 150 mg/Dextrose 103 ml @ 618 mls/hr 1X ONCE IV Last administered on 07/30/19at 20:07; Start 07/30/19 at 18:45; Stop 07/30/19 at 18:54; Status DC Amiodarone HCl 450 mg/Dextrose 259 ml @ 0 mls/hr CONT PRN IV SEE I/O RECORD Last administered on 07/30/19at 20:21; Start 07/30/19 at 18:45 Sodium Chloride 1,000 ml @ 1,000 mls/hr 1X ONCE IV Last administered on 07/30/19at 18:20; Start 07/30/19 at 18:45; Stop 07/31/19 at 02:15; Status DC Sodium Chloride 2,130 ml @ 2,130 mls/hr Q1H IV Last administered on 07/30/19at 19:02; Start 07/30/19 at 18:53; Stop 07/31/19 at 02:15; Status DC Piperacillin Sod/ Tazobactam Sod 4.5 gm/Sodium Chloride 100 ml @ 200 mls/hr 1X ONCE IV Last administered on 07/30/19at 19:06; Start 07/30/19 at 19:00; Stop 07/31/19 at 08:04; Status DC Vancomycin HCl (Vanco Per Pharmacy) 1 each 1X ONCE MC ; Start 07/30/19 at 19:00; Stop 07/31/19 at 08:04; Status DC Norepinephrine Bitartrate 8 mg/ Dextrose 258 ml @ 0 mls/hr CONT PRN IV PER PROTOCOL; Start 07/30/19 at 19:00; Stop 07/31/19 at 08:04; Status DC Potassium Chloride/Water 100 ml @ 100 mls/hr Q1H IV Last administered on 07/30/19at 21:31; Start 07/30/19 at 19:30; Stop 07/30/19 at 21:29; Status DC Vancomycin HCl 2 gm/Sodium Chloride 500 ml @ 250 mls/hr 1X ONCE IV Last administered on 07/30/19at 20:15; Start 07/30/19 at 19:15; Stop 07/30/19 at 21:14; Status DC Fentanyl Citrate (Fentanyl 2ml Vial) 25 mcg PRN Q1HR PRN IV SEE COMMENTS; Start 07/30/19 at 19:15; Stop 07/31/19 at 00:11; Status DC Fentanyl Citrate (Fentanyl 2ml Vial) 50 mcg PRN Q1HR PRN IV SEE COMMENTS; Start 07/30/19 at 19:15; Stop 07/31/19 at 00:11; Status DC Chlorhexidine Gluconate (Peridex) 15 ml BID MM Last administered on 08/06/19at 21:19; Start 07/30/19 at 21:00; Stop 08/07/19 at 11:18; Status DC Morphine Sulfate (Morphine Sulfate) 2 mg PRN Q1HR PRN IV SEE COMMENTS.; Start 07/30/19 at 19:15; Stop 07/31/19 at 00:11; Status DC Morphine Sulfate (Morphine Sulfate) 4 mg PRN Q1HR PRN IV SEE COMMENTS.; Start 07/30/19 at 19:15; Stop 07/31/19 at 00:11; Status DC Midazolam HCl 50 mg/Sodium Chloride 50 ml @ 0 mls/hr CONT PRN IV SEE PROTOCOL Last administered on 07/30/19at 20:40; Start 07/30/19 at 19:15; Stop 07/31/19 at 00:10; Status DC Acetaminophen (Tylenol Supp) 650 mg 1X ONCE TN Last administered on 07/30/19at 20:49; Start 07/30/19 at 20:15; Stop 07/30/19 at 20:16; Status DC Ondansetron HCl (Zofran) 4 mg PRN Q8HRS PRN IV NAUSEA/VOMITING; Start 07/30/19 at 20:30; Stop 07/31/19 at 20:29; Status DC Acetaminophen (Tylenol) 650 mg PRN Q4HRS PRN PO FEVER Last administered on 07/31/19at 12:49; Start 07/30/19 at 20:30; Stop 07/31/19 at 20:29; Status DC Heparin Sodium/ Dextrose 250 ml @ 0 mls/hr CONT PRN IV PER PROTOCOL Last administered on 08/08/19at 06:46; Start 07/30/19 at 20:45 Heparin Sodium (Porcine) (Heparin Sodium) 2,200 unit PRN Q6HRS PRN IV FOR UFH LEVEL LESS THAN 0.2 Last administered on 08/01/19at 15:42; Start 07/30/19 at 20:45 Info (Anti-Coagulation Monitoring By Pharmacy) 1 each PRN DAILY PRN MC SEE COMMENTS Last administered on 08/07/19at 16:50; Start 07/30/19 at 21:00 Etomidate (Amidate) 20 mg STK-MED ONCE IV ; Start 07/30/19 at 21:15; Stop 07/30/19 at 21:16; Status DC Rocuronium [place] (Zemuron) 50 mg STK-MED ONCE .ROUTE ; Start 07/30/19 at 21:16; Stop 07/30/19 at 21:16; Status DC Diltiazem HCl 125 mg/Sodium Chloride 125 ml @ 5 mls/hr CONT PRN IV SEE I/O RECORD; Start 07/30/19 at 22:30; Stop 07/31/19 at 06:01; Status DC Sodium Bicarbonate 100 meq/Dextrose 1,100 ml @ 75 mls/hr 1X ONCE IV Last administered on 07/31/19at 01:54; Start 07/30/19 at 23:00; Stop 07/31/19 at 13:39; Status DC Etomidate (Amidate) 20 mg 1X ONCE IV Last administered on 07/30/19at 19:27; Start 07/30/19 at 23:45; Stop 07/30/19 at 23:46; Status DC Rocuronium [place] (Zemuron) 50 mg 1X ONCE IV Last administered on 07/30/19at 19:28; Start 07/30/19 at 23:45; Stop 07/30/19 at 23:46; Status DC Rocuronium [place] (Zemuron) 50 mg 1X ONCE IV Last administered on 07/30/19at 19:28; Start 07/30/19 at 23:45; Stop 07/30/19 at 23:46; Status DC Digoxin (Lanoxin) 250 mcg 1X ONCE IV Last administered on 07/31/19at 00:12; Start 07/31/19 at 00:30; Stop 07/31/19 at 00:31; Status DC Heparin Sodium/ Dextrose 250 ml @ 0 mls/hr CONT PRN IV SEE I/O RECORD; Start 07/31/19 at 00:00; Status UNV Fentanyl Citrate 30 ml @ 0 mls/hr CONT PRN IV SEE PROTOCOL Last administered on 08/06/19at 06:48; Start 07/31/19 at 00:15; Stop 08/07/19 at 11:18; Status DC Midazolam HCl 50 mg/Sodium Chloride 50 ml @ 0 mls/hr CONT PRN IV SEE PROTOCOL Last administered on 08/06/19at 06:48; Start 07/31/19 at 00:15; Stop 08/07/19 at 11:18; Status DC Diltiazem HCl 125 mg/Sodium Chloride 125 ml @ 5 mls/hr CONT PRN IV SEE I/O RECORD Last administered on 08/01/19at 03:03; Start 07/31/19 at 01:00 Albuterol/ Ipratropium (Duoneb) 3 ml Q4HRS NEB Last administered on 08/08/19at 08:13; Start 07/31/19 at 04:00 Sodium Chloride 1,000 ml @ 120 mls/hr Q8H20M IV Last administered on 07/31/19at 02:30; Start 07/31/19 at 02:30; Stop 07/31/19 at 13:55; Status DC Vancomycin HCl (Vanco Per Pharmacy) 1 each PRN DAILY PRN MC SEE COMMENTS Last administered on 07/31/19at 03:30; Start 07/31/19 at 02:30; Stop 07/31/19 at 08:06; Status DC Vancomycin HCl 1.25 gm/Sodium Chloride 250 ml @ 167 mls/hr Q12H IV Last administered on 07/31/19at 07:57; Start 07/31/19 at 08:00; Stop 07/31/19 at 08:06; Status DC Vancomycin HCl (Vancomycin Trough Level) 1 each 1X ONCE MC ; Start 08/01/19 at 07:30; Stop 08/01/19 at 07:31; Status Cancel Micafungin Sodium 100 mg/Dextrose 100 ml @ 100 mls/hr Q24H IV Last administered on 08/08/19at 08:02; Start 07/31/19 at 08:00 Oseltamivir Phosphate (Tamiflu) 30 mg BID PO Last administered on 08/04/19at 21:02; Start 07/31/19 at 09:00; Stop 08/05/19 at 08:59; Status DC Linezolid/Dextrose 300 ml @ 300 mls/hr Q12HR IV Last administered on 08/04/19at 21:02; Start 07/31/19 at 09:00; Stop 08/05/19 at 08:02; Status DC Daptomycin 490 mg/ Sodium Chloride 50 ml @ 100 mls/hr Q24H IV Last administered on 07/31/19at 12:40; Start 07/31/19 at 10:00; Stop 08/01/19 at 09:01; Status DC Meropenem 1 gm/ Sodium Chloride 100 ml @ 200 mls/hr Q12HR IV Last administered on 08/08/19at 08:02; Start 07/31/19 at 09:00 Potassium Bicarbonate (Potassium Effervescent Tablet) 40 meq 1X ONCE PEG Last administered on 07/31/19at 10:54; Start 07/31/19 at 10:30; Stop 07/31/19 at 10:43; Status DC Famotidine (Pepcid Vial) 20 mg QHS IVP Last administered on 08/07/19at 20:51; Start 07/31/19 at 21:00 Albumin Human 100 ml @ 100 mls/hr TID IV Last administered on 08/02/19at 09:44; Start 07/31/19 at 14:30; Stop 08/02/19 at 09:59; Status DC Sodium Chloride 2,340 ml @ 2,340 mls/hr Q1H IV ; Start 07/31/19 at 14:48; Status UNV Sodium Chloride 500 ml @ 1,000 mls/hr PRN Q30MIN PRN IV SEE COMMENTS; Start 07/31/19 at 15:00; Status UNV Dobutamine HCl/ Dextrose 250 ml @ 0 mls/hr CONT PRN IV SEE I/O RECORD; Start 07/31/19 at 15:00; Status UNV Ondansetron HCl (Zofran) 4 mg PRN Q6HRS PRN IV NAUSEA/VOMITING; Start 07/31/19 at 15:00 Prochlorperazine (Compazine) 25 mg PRN Q12HR PRN TN NAUSEA/VOMITING; Start 07/31/19 at 15:00 Famotidine (Pepcid Vial) 20 mg BID IVP ; Start 07/31/19 at 21:00; Status UNV Sodium Chloride (Normal Saline Flush) 3 ml QSHIFT PRN IV AFTER MEDS AND BLOOD DRAWS; Start 07/31/19 at 15:00 Bisacodyl (Dulcolax Supp) 10 mg PRN DAILY PRN TN CONSTIPATION; Start 07/31/19 at 15:00 Thiamine HCl 100 mg/Dextrose 51 ml @ 102 mls/hr DAILY IV Last administered on 08/05/19at 10:15; Start 07/31/19 at 17:00; Stop 08/05/19 at 23:00; Status DC Vitamin A/Vitamin D (Vitamin A & D Ointment) 1 [place] PRN Q1HR PRN TP SKIN PROTECTION Last administered on 08/03/19at 08:14; Start 07/31/19 at 16:45 Daptomycin 490 mg/ Sodium Chloride 50 ml @ 100 mls/hr Q48H IV Last administered on 08/03/19at 11:19; Start 08/01/19 at 10:00; Stop 08/04/19 at 07:59; Status DC Furosemide (Lasix) 40 mg 1X ONCE IVP Last administered on 08/01/19at 22:14; Start 08/01/19 at 22:30; Stop 08/01/19 at 22:31; Status DC Potassium Bicarbonate (Potassium Effervescent Tablet) 20 meq 1X ONCE PEG Last administered on 08/01/19at 22:14; Start 08/01/19 at 22:30; Stop 08/01/19 at 22:31; Status DC Lidocaine HCl (Buffered Lidocaine 1%) 3 ml STK-MED ONCE .ROUTE ; Start 08/03/19 at 09:05; Stop 08/03/19 at 09:05; Status DC Lidocaine HCl (Buffered Lidocaine 1%) 3 ml 1X ONCE INJ Last administered on 08/03/19at 09:28; Start 08/03/19 at 09:30; Stop 08/03/19 at 09:31; Status DC Multivitamins/ Minerals Therapeutic (Centrum Multivit-Mineral Liq) 5 ml DAILY PEG Last administered on 08/06/19at 10:26; Start 08/03/19 at 12:00 Sodium Chloride 1,000 ml @ 1,000 mls/hr Q1H PRN IV hypotension; Start 08/03/19 at 13:31; Stop 08/03/19 at 19:30; Status DC Sodium Chloride 1,000 ml @ 400 mls/hr Q2H30M PRN IV PATENCY; Start 08/03/19 at 13:31; Stop 08/04/19 at 01:30; Status DC Info (PHARMACY MONITORING -- do not chart) 1 each PRN DAILY PRN MC SEE COMMENTS; Start 08/03/19 at 13:45; Status UNV Info (PHARMACY MONITORING -- do not chart) 1 each PRN DAILY PRN MC SEE COMMENTS; Start 08/03/19 at 13:45; Stop 08/07/19 at 16:56; Status DC Ondansetron HCl (Zofran) 4 mg PRN Q6HRS PRN IV NAUSEA/VOMITING; Start 08/04/19 at 07:00; Stop 08/05/19 at 06:59; Status DC Fentanyl Citrate (Fentanyl 2ml Vial) 25 mcg PRN Q5MIN PRN IV MILD PAIN 1-3; Start 08/04/19 at 07:00; Stop 08/05/19 at 06:59; Status DC Fentanyl Citrate (Fentanyl 2ml Vial) 50 mcg PRN Q5MIN PRN IV MODERATE TO SEVERE PAIN; Start 08/04/19 at 07:00; Stop 08/05/19 at 06:59; Status DC Ringer's Solution 1,000 ml @ 30 mls/hr Q24H IV ; Start 08/04/19 at 07:00; Stop 08/04/19 at 18:59; Status DC Prochlorperazine Edisylate (Compazine) 5 mg PACU PRN PRN IV NAUSEA, MRX1; Start 08/04/19 at 07:00; Stop 08/05/19 at 06:59; Status DC Cefazolin Sodium 1 gm/Sodium Chloride 500 ml @ 500 mls/hr 1X ONCE IRR ; Start 08/04/19 at 06:00; Stop 08/04/19 at 06:59; Status DC Metoprolol Tartrate (Lopressor Vial) 5 mg Q6HRS IVP Last administered on 08/07/19at 11:35; Start 08/05/19 at 18:00; Stop 08/07/19 at 16:50; Status DC Thiamine Mononitrate (Vitamin B-1) 100 mg DAILY PEG Last administered on 08/06/19at 10:26; Start 08/06/19 at 09:00 Sodium Chloride 1,000 ml @ 1,000 mls/hr Q1H PRN IV hypotension; Start 08/05/19 at 16:00; Stop 08/05/19 at 21:59; Status DC Sodium Chloride (Normal Saline Flush) 10 ml 1X PRN PRN IV AP catheter pack; Start 08/05/19 at 16:00; Stop 08/06/19 at 15:59; Status DC Sodium Chloride (Normal Saline Flush) 10 ml 1X PRN PRN IV D[employer] catheter pack; Start 08/05/19 at 16:00; Stop 08/06/19 at 15:59; Status DC Info (PHARMACY MONITORING -- do not chart) 1 each PRN DAILY PRN MC SEE COMMENTS; Start 08/05/19 at 20:30 Info (PHARMACY MONITORING -- do not chart) 1 each PRN DAILY PRN MC SEE COMMENTS; Start 08/05/19 at 20:30; Status UNV Propofol 100 ml @ 0 mls/hr CONT PRN IV SEE PROTOCOL Last administered on 08/06/19at 13:51; Start 08/06/19 at 13:45; Stop 08/07/19 at 11:18; Status DC Furosemide (Lasix) 40 mg 1X ONCE IVP Last administered on 08/07/19at 10:32; Start 08/07/19 at 10:15; Stop 08/07/19 at 10:19; Status DC Metoprolol Tartrate (Lopressor Vial) 7.5 mg Q6HRS IVP Last administered on 08/08/19at 05:57; Start 08/07/19 at 18:00 Hydralazine HCl (Apresoline Inj) 10 mg PRN Q4HRS PRN IVP ELEVATED BP, SEE COMMENTS Last administered on 08/07/19at 18:13; Start 08/07/19 at 17:00 Lorazepam (Ativan Inj) 0.5 mg PRN Q4HRS PRN IVP ANXIETY / AGITATION Last administered on 08/07/19at 20:51; Start 08/07/19 at 19:30 Acetaminophen (Tylenol Supp) 650 mg PRN Q6HRS PRN [place] MILD PAIN / TEMP; Start 08/07/19 at 19:30 Active Scripts Active Proair Hfa (Albuterol Sulfate) 8.5 Gm Hfa.aer.ad 2 Puff IH PRN Q4-6HRS PRN 21 Days Tessalon Perle (Benzonatate) 100 Mg Capsule 1 Cap PO TID Prednisone 50 Mg Tablet 1 Tab PO DAILY Cyclobenzaprine Hcl 5 Mg Tablet 1 Tab PO TID Ibuprofen 800 Mg Tablet 800 Mg PO Q6-8HRS Zofran Odt (Ondansetron) 4 Mg Tab.rapdis 1 Tab SL Q8HRS Ultram (Tramadol Hcl) 50 Mg Tablet 1 Tab PO Q6HRS Vitals/I & O Vital Sign - Last 24 Hours 08/07/19 08/07/19 08/07/19 08/07/19 11:00 11:35 11:47 12:00 Temp 99.7 99.7 Pulse 90 89 79 Resp 23 30 B/P (MAP) 165/88 (113) 178/90 175/78 (110) Pulse Ox 97 98 99 O2 Delivery Venturi Mask Venturi Mask Venturi Mask O2 Flow Rate 15.0 15.0 15.0 08/07/19 08/07/19 08/07/19 08/07/19 12:00 13:00 14:00 15:00 Pulse 86 86 88 Resp 20 20 31 B/P (MAP) 192/95 (127) 174/80 (111) 188/85 (119) Pulse Ox 99 99 99 O2 Delivery Venturi Mask Venturi Mask Venturi Mask Venturi Mask O2 Flow Rate 15.0 15.0 15.0 15.0 08/07/19 08/07/19 08/07/19 08/07/19 16:00 16:00 16:10 17:00 Temp 99.6 99.6 Pulse 81 78 Resp 21 31 B/P (MAP) 176/78 (110) 168/73 (104) Pulse Ox 98 97 96 O2 Delivery Venturi Mask Venturi Mask Venturi Mask Nasal Cannula O2 Flow Rate 15.0 15.0 12.0 2.0 08/07/19 08/07/19 08/07/19 08/07/19 18:00 18:13 18:13 20:00 Pulse 58 78 78 Resp 25 B/P (MAP) 143/65 (91) 168/73 168/73 Pulse Ox 96 O2 Delivery Nasal Cannula Nasal Cannula O2 Flow Rate 2.0 2.0 08/07/19 08/07/19 08/07/19 08/07/19 20:00 20:25 21:00 22:00 Temp 98.1 98.1 Pulse 80 88 88 Resp 25 25 25 B/P (MAP) 142/66 (91) 150/68 (95) 146/62 (90) Pulse Ox 93 94 96 98 O2 Delivery Nasal Cannula Nasal Cannula Nasal Cannula Nasal Cannula O2 Flow Rate 2.0 3.0 2.0 2.0 08/07/19 08/08/19 08/08/19 08/08/19 23:00 00:00 00:00 00:00 Temp 98.2 98.2 Pulse 90 88 Resp 25 33 B/P (MAP) 149/65 (93) 144/70 (94) Pulse Ox 97 97 O2 Delivery Nasal Cannula Nasal Cannula Nasal Cannula Nasal Cannula O2 Flow Rate 2.0 2.0 2.0 2.0 08/08/19 08/08/19 08/08/19 08/08/19 00:15 01:00 02:00 03:00 Pulse 83 78 82 84 Resp 30 34 35 B/P (MAP) 144/65 140/64 (89) 149/62 (91) 145/63 (90) Pulse Ox 95 96 95 O2 Delivery Nasal Cannula Nasal Cannula Nasal Cannula O2 Flow Rate 2.0 2.0 2.0 08/08/19 08/08/19 08/08/19 08/08/19 04:00 04:00 04:18 05:00 Temp 98.2 98.2 Pulse 82 86 Resp 30 28 B/P (MAP) 155/67 (96) 152/69 (96) Pulse Ox 96 94 96 O2 Delivery Nasal Cannula Nasal Cannula Nasal Cannula Nasal Cannula O2 Flow Rate 2.0 2.0 3.0 2.0 08/08/19 08/08/19 08/08/19 08/08/19 05:57 06:00 07:00 08:00 Temp 99.3 99.3 Pulse 84 82 51 54 Resp 29 25 23 B/P (MAP) 160/71 160/71 (100) 146/74 (98) 150/69 (96) Pulse Ox 96 96 97 O2 Delivery Nasal Cannula Nasal Cannula Nasal Cannula O2 Flow Rate 2.0 2.0 2.0 08/08/19 08/08/19 08/08/19 08/08/19 08:00 08:14 09:00 10:00 Pulse 86 91 Resp 23 25 B/P (MAP) 146/70 (95) 159/72 (101) Pulse Ox 94 97 97 O2 Delivery Nasal Cannula Nasal Cannula Nasal Cannula Nasal Cannula O2 Flow Rate 2.0 3.0 2.0 2.0 Intake and Output 08/07/19 08/07/19 08/08/19 15:00 23:00 07:00 Intake Total 309 ml 540 ml Output Total 1715 ml 850 ml 475 ml Balance -1406 ml -310 ml -475 ml Nutrition Consultation Dietary Evaluation: Recommendations by RD: Dietary education by RD, Increase Calorie Intake, Protein supplementation Comments: REC advance diet as able s/p extubation pending FISH BIN TENDER eval, goal diet regular w/Javi BID and MVI for wound healing If unable to advance diet within 48 - 72 hrs of extubation, recommend consideration of dobhoff placement for TFs per following: Jevity 1.5@goal rate 60 ml/hr w/200 ml water flushes q4 hrs, w/Javi BID via dobhoff and liquid MVI (wound healing) Expected Outcomes/Goals: New goal 08/02: TF infusion to meet >75% est needs - new goal established New goal 08/06: intiaition of nutrition within 24 - 72 hrs s/p extubation Malnutrition Findings: Food and Nutrition Intake (Mod: <75% est energy req 7days Body Fat Depletion (Non Severe: Mild Depletion Weight Status: Appropriate CORY SCHMIDT MD Aug 08, 2019 10:52
--- NOTE | 2019-08-08 11:35 | NUR ---
Bedside Swallow Evaluation completed. Please refer to full report in intervention section for additional information. Impressions: Oropharyngeal dysphagia consistent w/ laryngeal dysfunction post 9 day intubation compounded by decreased cognitive status and confusion. Pt w/ difficulty managing his own secretions and w/ s/s aspiration w/ minimal PO trials. No safe consistency identified w/ need/length of time for NPO unknown at this time. Recommendations: Strict NPO. Aggressive oral care. ST f/u for dysphagia and to determine readiness for PO. d/w Yoshi. RN; precautions posted in room.
--- NOTE | 2019-08-08 12:40 | PDOC ---
SUBJECTIVE ROS Extubated, On O2 by NC OBJECTIVE Vital Signs Vital Signs Date Time Temp Pulse Resp B/P (MAP) Pulse Ox O2 Delivery O2 Flow Rate FiO2 08/08/19 12:26 79 170/76 08/08/19 12:00 95 Nasal Cannula 3.0 08/08/19 12:00 99.0 28 99.0 I & 0 Intake and Output 08/08/19 07:00 Intake Total 849 ml Output Total 3040 ml Balance -2191 ml IV Total 849 ml Output Urine Total 3040 ml PHYSICAL EXAM Physical Exam GENERAL: NAD HEENT: Extubated, On o2 by NC NECK: Supple. LUNGS: Diminished aeration bases HEART: S1, S2, irregular rhythm. ABDOMEN: Obese, soft, : Valladares in place EXTREMITIES: Ischemic changes right foot with bullous lesion/gangrene; DERMATOLOGIC: No generalized rash. 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 Acute hypoxic respiratory failure with pneumonia, status post intubation. 07/31. strep pneumo Severe peripheral vascular disease, right foot ischemia/gangrene Encephalopathy.- sedated Lactic acidosis. Hyperbilirubinemia/LFT elevation. Atrial fibrillation with rapid ventricular response, on amiodarone. COMMENT/RELEVANT DATA Meds Current Medications Medications (Trade) Dose Ordered Sig/Casper Start Time Stop Time Status Last Admin Dose Admin Acetaminophen (Tylenol Supp) 650 mg PRN Q6HRS PRN 08/07/19 19:30 Acetaminophen (Tylenol) 650 mg PRN Q4HRS PRN 07/30/19 20:30 07/31/19 20:29 DC 07/31/19 12:49 650 MG Albumin Human 100 ml @ 100 mls/hr TID 07/31/19 14:30 08/02/19 09:59 DC 08/02/19 09:44 100 MLS/HR Albuterol Sulfate (Ventolin Neb Soln) 10 mg 1X ONCE 07/30/19 18:00 07/30/19 18:01 DC 07/30/19 18:00 10 MG Albuterol/ Ipratropium (Duoneb) 3 ml Q4HRS 07/31/19 04:00 08/08/19 11:59 3 ML Amiodarone HCl 150 mg/Dextrose 103 ml @ 618 mls/hr 1X ONCE 07/30/19 18:45 07/30/19 18:54 DC 07/30/19 20:07 618 MLS/HR Amiodarone HCl 450 mg/Dextrose 259 ml @ 0 mls/hr CONT PRN 07/30/19 18:45 07/30/19 20:21 33.3 MLS/HR Bisacodyl (Dulcolax Supp) 10 mg PRN DAILY PRN 07/31/19 15:00 Cefazolin Sodium 1 gm/Sodium Chloride 500 ml @ 500 mls/hr 1X ONCE 08/04/19 06:00 08/04/19 06:59 DC Chlorhexidine Gluconate (Peridex) 15 ml BID 07/30/19 21:00 08/07/19 11:18 DC 08/06/19 21:19 15 ML Daptomycin 490 mg/ Sodium Chloride 50 ml @ 100 mls/hr Q48H 08/01/19 10:00 08/04/19 07:59 DC 08/03/19 11:19 100 MLS/HR Digoxin (Lanoxin) 250 mcg 1X ONCE 07/31/19 00:30 07/31/19 00:31 DC 07/31/19 00:12 250 MCG Diltiazem HCl (Cardizem Iv Push) 10 mg 1X ONCE 07/30/19 18:00 07/30/19 18:01 DC 07/30/19 18:01 10 MG Diltiazem HCl 125 mg/Sodium Chloride 125 ml @ 5 mls/hr CONT PRN 07/31/19 01:00 08/01/19 03:03 5 MLS/HR Dobutamine HCl/ Dextrose 250 ml @ 0 mls/hr CONT PRN 07/31/19 15:00 UNV Etomidate (Amidate) 20 mg 1X ONCE 07/30/19 23:45 07/30/19 23:46 DC 07/30/19 19:27 20 MG Famotidine (Pepcid Vial) 20 mg BID 07/31/19 21:00 UNV Fentanyl Citrate (Fentanyl 2ml Vial) 50 mcg PRN Q5MIN PRN 08/04/19 07:00 08/05/19 06:59 DC Furosemide (Lasix) 40 mg 1X ONCE 08/07/19 10:15 08/07/19 10:19 DC 08/07/19 10:32 40 MG Heparin Sodium (Porcine) (Heparin Sodium) 2,200 unit PRN Q6HRS PRN 07/30/19 20:45 08/01/19 15:42 2,200 UNIT Heparin Sodium/ Dextrose 250 ml @ 0 mls/hr CONT PRN 07/31/19 00:00 UNV Hydralazine HCl (Apresoline Inj) 10 mg PRN Q4HRS PRN 08/07/19 17:00 08/07/19 18:13 10 MG Info (Anti-Coagulation Monitoring By Pharmacy) 1 each PRN DAILY PRN 07/30/19 21:00 08/07/19 16:50 1 EACH Info (PHARMACY MONITORING -- do not chart) 1 each PRN DAILY PRN 08/05/19 20:30 UNV Lidocaine HCl (Buffered Lidocaine 1%) 3 ml 1X ONCE 08/03/19 09:30 08/03/19 09:31 DC 08/03/19 09:28 3 ML Linezolid/Dextrose 300 ml @ 300 mls/hr Q12HR 07/31/19 09:00 08/05/19 08:02 DC 08/04/19 21:02 300 MLS/HR Lorazepam (Ativan Inj) 0.5 mg PRN Q4HRS PRN 08/07/19 19:30 08/07/19 20:51 0.5 MG Meropenem 1 gm/ Sodium Chloride 100 ml @ 200 mls/hr Q12HR 07/31/19 09:00 08/08/19 08:02 200 MLS/HR Metoprolol Tartrate (Lopressor Vial) 7.5 mg Q6HRS 08/07/19 18:00 08/08/19 12:26 7.5 MG Micafungin Sodium 100 mg/Dextrose 100 ml @ 100 mls/hr Q24H 07/31/19 08:00 08/08/19 08:02 100 MLS/HR Midazolam HCl 50 mg/Sodium Chloride 50 ml @ 0 mls/hr CONT PRN 07/31/19 00:15 08/07/19 11:18 DC 08/06/19 06:48 7 MLS/HR Morphine Sulfate (Morphine Sulfate) 4 mg PRN Q1HR PRN 07/30/19 19:15 07/31/19 00:11 DC Multivitamins/ Minerals Therapeutic (Centrum Multivit-Mineral Liq) 5 ml DAILY 08/03/19 12:00 08/06/19 10:26 5 ML Norepinephrine Bitartrate 8 mg/ Dextrose 258 ml @ 0 mls/hr CONT PRN 07/30/19 19:00 07/31/19 08:04 DC Ondansetron HCl (Zofran) 4 mg PRN Q6HRS PRN 08/04/19 07:00 08/05/19 06:59 DC Oseltamivir Phosphate (Tamiflu) 30 mg BID 07/31/19 09:00 08/05/19 08:59 DC 08/04/19 21:02 30 MG Piperacillin Sod/ Tazobactam Sod 4.5 gm/Sodium Chloride 100 ml @ 200 mls/hr 1X ONCE 07/30/19 19:00 07/31/19 08:04 DC 07/30/19 19:06 200 MLS/HR Potassium Bicarbonate (Potassium Effervescent Tablet) 20 meq 1X ONCE 08/01/19 22:30 08/01/19 22:31 DC 08/01/19 22:14 20 MEQ Potassium Chloride/Water 100 ml @ 100 mls/hr Q1H 07/30/19 19:30 07/30/19 21:29 DC 07/30/19 21:31 100 MLS/HR Prochlorperazine (Compazine) 25 mg PRN Q12HR PRN 07/31/19 15:00 Prochlorperazine Edisylate (Compazine) 5 mg PACU PRN PRN 08/04/19 07:00 08/05/19 06:59 DC Propofol 100 ml @ 0 mls/hr CONT PRN 08/06/19 13:45 08/07/19 11:18 DC 08/06/19 13:51 7.4 MLS/HR Ringer's Solution 1,000 ml @ 30 mls/hr Q24H 08/04/19 07:00 08/04/19 18:59 DC Rocuronium Rhome (Zemuron) 50 mg 1X ONCE 07/30/19 23:45 07/30/19 23:46 DC 07/30/19 19:28 50 MG Sodium Bicarbonate 100 meq/Dextrose 1,100 ml @ 75 mls/hr 1X ONCE 07/30/19 23:00 07/31/19 13:39 DC 07/31/19 01:54 75 MLS/HR Sodium Chloride (Normal Saline Flush) 10 ml 1X PRN PRN 08/05/19 16:00 08/06/19 15:59 DC Thiamine Mononitrate (Vitamin B-1) 100 mg DAILY 08/06/19 09:00 08/06/19 10:26 100 MG Thiamine HCl 100 mg/Dextrose 51 ml @ 102 mls/hr DAILY 07/31/19 17:00 08/05/19 23:00 DC 08/05/19 10:15 102 MLS/HR Vancomycin HCl (Vanco Per Pharmacy) 1 each PRN DAILY PRN 07/31/19 02:30 07/31/19 08:06 DC 07/31/19 03:30 1 EACH Vancomycin HCl (Vancomycin Trough Level) 1 each 1X ONCE 08/01/19 07:30 08/01/19 07:31 Cancel Vancomycin HCl 1.25 gm/Sodium Chloride 250 ml @ 167 mls/hr Q12H 07/31/19 08:00 07/31/19 08:06 DC 07/31/19 07:57 167 MLS/HR Vancomycin HCl 2 gm/Sodium Chloride 500 ml @ 250 mls/hr 1X ONCE 07/30/19 19:15 07/30/19 21:14 DC 07/30/19 20:15 250 MLS/HR Vitamin A/Vitamin D (Vitamin A & D Ointment) 1 milton PRN Q1HR PRN 07/31/19 16:45 08/03/19 08:14 1 [place] Lab Laboratory Tests Test 08/08/19 05:00 08/08/19 05:17 08/08/19 08:25 White Blood Count 10.6 x10^3/uL (4.0-11.0) Red Blood Count 3.72 x10^6/uL (4.30-5.70) Hemoglobin 11.9 g/dL (13.0-17.5) Hematocrit 35.5 % (39.0-53.0) Mean Corpuscular Volume 95 fL (79-100) Mean Corpuscular Hemoglobin 32 pg (25-35) Mean Corpuscular Hemoglobin Concent 34 g/dL (31-37) Red Cell Distribution Width 13.1 % (11.5-14.5) Platelet Count 266 x10^3/uL (140-400) Neutrophils (%) (Auto) 69 % (31-73) Lymphocytes (%) (Auto) 19 % (24-48) Monocytes (%) (Auto) 9 % (0-9) Eosinophils (%) (Auto) 3 % (0-3) Basophils (%) (Auto) 1 % (0-3) Neutrophils # (Auto) 7.3 x10^3/uL (1.8-7.7) Lymphocytes # (Auto) 2.0 x10^3/uL (1.0-4.8) Monocytes # (Auto) 1.0 x10^3/uL (0.0-1.1) Eosinophils # (Auto) 0.3 x10^3/uL (0.0-0.7) Basophils # (Auto) 0.1 x10^3/uL (0.0-0.2) Sodium Level 150 mmol/L (136-145) Potassium Level 3.3 mmol/L (3.5-5.1) Chloride Level 111 mmol/L (98-107) Carbon Dioxide Level 30 mmol/L (21-32) Anion Gap 9 (6-14) Blood Urea Nitrogen 58 mg/dL (8-26) Creatinine 1.6 mg/dL (0.7-1.3) Estimated GFR (Cockcroft-Gault) 43.5 BUN/Creatinine Ratio 36 (6-20) Glucose Level 90 mg/dL (70-99) Calcium Level 8.8 mg/dL (8.5-10.1) Total Bilirubin 1.3 mg/dL (0.2-1.0) Aspartate Amino Transf (AST/SGOT) 56 U/L (15-37) Alanine Aminotransferase (ALT/SGPT) 16 U/L (16-63) Alkaline Phosphatase 87 U/L (46-116) Total Protein 6.8 g/dL (6.4-8.2) Albumin 2.1 g/dL (3.4-5.0) Albumin/Globulin Ratio 0.4 (1.0-1.7) Heparin Anti-Xa Act, Unfractionated 0.14 IU/mL (0.30-0.70) 0.39 IU/mL (0.30-0.70) Results All relevant outside records, renal labs, imaging studies, telemetry/EKG's were reviewed. Other Multifocal pulmonary opacities, unchanged. Small bilateral pleural effusions, unchanged. Unchanged heart size. Interval extubation and removal of enteric tube. Stable right IJ central lines. No pneumothorax. Impression: 1. Interval extubation. 2. Otherwise, no significant interval change compared to prior. JOSE DAVID ANTON MD Aug 08, 2019 12:40
[2019-08-08] MEDS: ANTI-COAG MONITOR BY PHARMACY. MC PRN (13:21)
[2019-08-08] MEDS: hydrALAZINE 20 MG/ML VIAL. IVP PRN ×2 (16:13→22:36)
[2019-08-08] MEDS: IV DEXTROSE 5% 1,000 ML IV SCH (16:29)
[2019-08-08] MEDS: FAMOTIDINE 20 MG/2 ML VIAL IVP SCH (20:59)
[2019-08-09] VITALS (17 sets, daily range): BP systolic 145–183; BP diastolic 66–88
[2019-08-09] MEDS: METOPROLOL TARTRATE 5 MG/5 ML VIAL. IVP SCH ×4 (00:07→17:50)
[2019-08-09] MEDS: IPRATRPIUM/ALBUTEROL 0.5/2.5MG 3 ML NEBU. NEB SCH ×6 (03:37→23:21)
[2019-08-09] MEDS: HEPARIN 25,000UTS/250ML PREMIX 250 ML IV PRN ×2 (05:05→17:56)
[2019-08-09 06:07] LABS: BASO # 0.1 x10^3/uL (0.0-0.2); BASO % 1 % (0-3); EOS # 0.3 x10^3/uL (0.0-0.7); EOS % 3 % (0-3); HEMATOCRIT 36.1 % (39.0-53.0); HEMOGLOBIN 12.1 g/dL (13.0-17.5); LYMPH # 2.1 x10^3/uL (1.0-4.8); LYMPH % 21 % (24-48); MEAN CORPUSCULAR HEMOGLOBIN 32 pg (25-35); MEAN CORPUSCULAR HGB CONC 34 g/dL (31-37); MEAN CORPUSCULAR VOLUME 95 fL (79-100); MONO # 0.9 x10^3/uL (0.0-1.1); MONO % 9 % (0-9); NEUT # 6.6 x10^3/uL (1.8-7.7); NEUT % 66 % (31-73); PLATELET COUNT 270 x10^3/uL (140-400); RED BLOOD COUNT 3.79 x10^6/uL (4.30-5.70); RED CELL DISTRIBUTION WIDTH 13.6 % (11.5-14.5)
[2019-08-09 06:15] LABS: CALCIUM 8.4 mg/dL (8.5-10.1); CREATININE 1.5 mg/dL (0.7-1.3); GFR 46.8
--- NOTE | 2019-08-09 06:58 | RAD ---
AP chest. HISTORY: Follow-up infiltrates, extubated one day ago AP view was taken of the chest. There are persistent bilateral infiltrates without significant change. Central line and dialysis catheter are unchanged. IMPRESSION: 1. Persistent bilateral areas of infiltrate with little change. Electronically signed by: Daniel Nieves MD (08/09/2019 6:55 AM) [id number]
[2019-08-09] MEDS: MULTIVITAMINS,THERAPEUTIC 5 ML ORAL LIQUID. PEG SCH (07:51)
[2019-08-09] MEDS: THIAMINE 100 MG TABLET. PEG SCH (07:52)
--- NOTE | 2019-08-09 08:41 | PDOC ---
Infectious Disease Note Subjective Subjective Nonverbal Fever 100.0 BM x 2 TPN ROS ROS unobtainable Vital Sign Vital Signs Vital Signs Date Time Temp Pulse Resp B/P (MAP) Pulse Ox O2 Delivery O2 Flow Rate FiO2 08/09/19 07:39 96 Nasal Cannula 3.0 08/09/19 07:00 100.0 82 18 145/71 (95) 100.0 Physical Exam PHYSICAL EXAM GENERAL: Opens eyes to name, no response to questions or follows commands HEENT: Pupils equal, Oral cavity dry NECK: Supple. LUNGS: Clear, nonlabored HEART: S1, S2, irregular rhythm. ABDOMEN: Obese, soft, mildly distended : Valladares in place, 1 + scrotal swelling, erythema, EXTREMITIES: Ischemic changes right foot with 4 th toe gangrene toe. Left foot pink. Rooke boots bilaterally SKIN: Wrm to touch. No generalized rash. RIJ and R HD cath (08/02) without signs of complications . Labs Lab Laboratory Tests Test 08/09/19 05:50 White Blood Count 10.0 x10^3/uL (4.0-11.0) Red Blood Count 3.79 x10^6/uL (4.30-5.70) Hemoglobin 12.1 g/dL (13.0-17.5) Hematocrit 36.1 % (39.0-53.0) Mean Corpuscular Volume 95 fL (79-100) Mean Corpuscular Hemoglobin 32 pg (25-35) Mean Corpuscular Hemoglobin Concent 34 g/dL (31-37) Red Cell Distribution Width 13.6 % (11.5-14.5) Platelet Count 270 x10^3/uL (140-400) Neutrophils (%) (Auto) 66 % (31-73) Lymphocytes (%) (Auto) 21 % (24-48) Monocytes (%) (Auto) 9 % (0-9) Eosinophils (%) (Auto) 3 % (0-3) Basophils (%) (Auto) 1 % (0-3) Neutrophils # (Auto) 6.6 x10^3/uL (1.8-7.7) Lymphocytes # (Auto) 2.1 x10^3/uL (1.0-4.8) Monocytes # (Auto) 0.9 x10^3/uL (0.0-1.1) Eosinophils # (Auto) 0.3 x10^3/uL (0.0-0.7) Basophils # (Auto) 0.1 x10^3/uL (0.0-0.2) Heparin Anti-Xa Act, Unfractionated 0.52 IU/mL (0.30-0.70) Sodium Level 152 mmol/L (136-145) Potassium Level 3.0 mmol/L (3.5-5.1) Chloride Level 113 mmol/L (98-107) Carbon Dioxide Level 29 mmol/L (21-32) Anion Gap 10 (6-14) Blood Urea Nitrogen 48 mg/dL (8-26) Creatinine 1.5 mg/dL (0.7-1.3) Estimated GFR (Cockcroft-Gault) 46.8 Glucose Level 95 mg/dL (70-99) Calcium Level 8.4 mg/dL (8.5-10.1) CXR, 08/08 IMPRESSION: 1. Persistent bilateral areas of infiltrate with little change. Micro 07/31. SPUTUM CULT RES 1 Final Mold isolated. Objective Assessment Fever Septic shock procalcitonin 25.26 - improved Strep pneumo sepsis (4 of 4 bottles), 07/30 ? source.- ?lung with strep pneumo ? foot -Repeat BC and 08/01 neg to date. TTE (07/31) no evidence veg Leukocytosis - improved Influenza A, respiratory tract infection. Treated Acute hypoxic respiratory failure with pneumonia, status post intubation. 07/31. strep pneumo & GPR - no identified on gram stain/mold. Severe peripheral vascular disease, right foot ischemia/gangrene Encephalopathy. Lactic acidosis. Acute kidney injury - improving Hyperbilirubinemia. LFT elevation. Atrial fibrillation with rapid ventricular response, on amiodarone. Homelessness. Groin dermatitis. Tinea Hypernatremia I Plan Plan of Care Cont Merrem, and micafungin Off Daptomycin and Zyvox Follow up labs and cultures Maintain aspiration precautions Surgery on toe- not performed as unable to get consent D/w micro, work-up for mold ID underway Critically ill D/w nursing Attending Co-Sign The patient was seen and interviewed as well as examined at the bedside. The chart was reviewed. The case was discussed. Agree with the plan of care. EVELINA CORREA APRN Aug 09, 2019 08:41 ROBERTO CHAWLA MD Aug 09, 2019 11:58
[2019-08-09] MEDS: MICAFUNGIN 100 MG in IV DEXTROSE 5% 100ML 100 ML IV SCH (08:45)
[2019-08-09] MEDS: IV DEXTROSE 5% 1,000 ML IV SCH (10:16)
[2019-08-09] MEDS: MEROPENEM 1 GM in IV NORMAL SALINE 100ML 100 ML IV SCH ×2 (10:17→22:19)
[2019-08-09] MEDS: hydrALAZINE 20 MG/ML VIAL. IVP PRN ×2 (10:18→14:43)
--- NOTE | 2019-08-09 10:42 | PDOC ---
PULMONARY PROGRESS NOTES Subjective extubated on 08/07/2019 , Alert X1 Vitals Vital Signs Date Time Temp Pulse Resp B/P (MAP) Pulse Ox O2 Delivery O2 Flow Rate FiO2 08/09/19 10:18 80 177/83 08/09/19 07:39 96 Nasal Cannula 3.0 08/09/19 07:00 100.0 18 100.0 Lungs: Clear Cardiovascular: S1, S2 Abdomen: Soft Extremities: Other (PVD) Skin: Warm Labs Laboratory Tests Test 08/08/19 05:00 08/08/19 05:17 08/08/19 08:25 08/09/19 05:50 White Blood Count 10.6 x10^3/uL (4.0-11.0) 10.0 x10^3/uL (4.0-11.0) Red Blood Count 3.72 x10^6/uL (4.30-5.70) 3.79 x10^6/uL (4.30-5.70) Hemoglobin 11.9 g/dL (13.0-17.5) 12.1 g/dL (13.0-17.5) Hematocrit 35.5 % (39.0-53.0) 36.1 % (39.0-53.0) Mean Corpuscular Volume 95 fL (79-100) 95 fL (79-100) Mean Corpuscular Hemoglobin 32 pg (25-35) 32 pg (25-35) Mean Corpuscular Hemoglobin Concent 34 g/dL (31-37) 34 g/dL (31-37) Red Cell Distribution Width 13.1 % (11.5-14.5) 13.6 % (11.5-14.5) Platelet Count 266 x10^3/uL (140-400) 270 x10^3/uL (140-400) Neutrophils (%) (Auto) 69 % (31-73) 66 % (31-73) Lymphocytes (%) (Auto) 19 % (24-48) 21 % (24-48) Monocytes (%) (Auto) 9 % (0-9) 9 % (0-9) Eosinophils (%) (Auto) 3 % (0-3) 3 % (0-3) Basophils (%) (Auto) 1 % (0-3) 1 % (0-3) Neutrophils # (Auto) 7.3 x10^3/uL (1.8-7.7) 6.6 x10^3/uL (1.8-7.7) Lymphocytes # (Auto) 2.0 x10^3/uL (1.0-4.8) 2.1 x10^3/uL (1.0-4.8) Monocytes # (Auto) 1.0 x10^3/uL (0.0-1.1) 0.9 x10^3/uL (0.0-1.1) Eosinophils # (Auto) 0.3 x10^3/uL (0.0-0.7) 0.3 x10^3/uL (0.0-0.7) Basophils # (Auto) 0.1 x10^3/uL (0.0-0.2) 0.1 x10^3/uL (0.0-0.2) Sodium Level 150 mmol/L (136-145) 152 mmol/L (136-145) Potassium Level 3.3 mmol/L (3.5-5.1) 3.0 mmol/L (3.5-5.1) Chloride Level 111 mmol/L (98-107) 113 mmol/L (98-107) Carbon Dioxide Level 30 mmol/L (21-32) 29 mmol/L (21-32) Anion Gap 9 (6-14) 10 (6-14) Blood Urea Nitrogen 58 mg/dL (8-26) 48 mg/dL (8-26) Creatinine 1.6 mg/dL (0.7-1.3) 1.5 mg/dL (0.7-1.3) Estimated GFR (Cockcroft-Gault) 43.5 46.8 BUN/Creatinine Ratio 36 (6-20) Glucose Level 90 mg/dL (70-99) 95 mg/dL (70-99) Calcium Level 8.8 mg/dL (8.5-10.1) 8.4 mg/dL (8.5-10.1) Total Bilirubin 1.3 mg/dL (0.2-1.0) Aspartate Amino Transf (AST/SGOT) 56 U/L (15-37) Alanine Aminotransferase (ALT/SGPT) 16 U/L (16-63) Alkaline Phosphatase 87 U/L (46-116) Total Protein 6.8 g/dL (6.4-8.2) Albumin 2.1 g/dL (3.4-5.0) Albumin/Globulin Ratio 0.4 (1.0-1.7) Heparin Anti-Xa Act, Unfractionated 0.14 IU/mL (0.30-0.70) 0.39 IU/mL (0.30-0.70) 0.52 IU/mL (0.30-0.70) Laboratory Tests Test 08/09/19 05:50 White Blood Count 10.0 x10^3/uL (4.0-11.0) Red Blood Count 3.79 x10^6/uL (4.30-5.70) Hemoglobin 12.1 g/dL (13.0-17.5) Hematocrit 36.1 % (39.0-53.0) Mean Corpuscular Volume 95 fL (79-100) Mean Corpuscular Hemoglobin 32 pg (25-35) Mean Corpuscular Hemoglobin Concent 34 g/dL (31-37) Red Cell Distribution Width 13.6 % (11.5-14.5) Platelet Count 270 x10^3/uL (140-400) Neutrophils (%) (Auto) 66 % (31-73) Lymphocytes (%) (Auto) 21 % (24-48) Monocytes (%) (Auto) 9 % (0-9) Eosinophils (%) (Auto) 3 % (0-3) Basophils (%) (Auto) 1 % (0-3) Neutrophils # (Auto) 6.6 x10^3/uL (1.8-7.7) Lymphocytes # (Auto) 2.1 x10^3/uL (1.0-4.8) Monocytes # (Auto) 0.9 x10^3/uL (0.0-1.1) Eosinophils # (Auto) 0.3 x10^3/uL (0.0-0.7) Basophils # (Auto) 0.1 x10^3/uL (0.0-0.2) Heparin Anti-Xa Act, Unfractionated 0.52 IU/mL (0.30-0.70) Sodium Level 152 mmol/L (136-145) Potassium Level 3.0 mmol/L (3.5-5.1) Chloride Level 113 mmol/L (98-107) Carbon Dioxide Level 29 mmol/L (21-32) Anion Gap 10 (6-14) Blood Urea Nitrogen 48 mg/dL (8-26) Creatinine 1.5 mg/dL (0.7-1.3) Estimated GFR (Cockcroft-Gault) 46.8 Glucose Level 95 mg/dL (70-99) Calcium Level 8.4 mg/dL (8.5-10.1) Medications Active Scripts Medications Dose Route/Sig Max Daily Dose Days Date Category Proair Hfa (Albuterol Sulfate) 8.5 Gm Hfa.aer.ad 2 Puff IH PRN Q4-6HRS PRN 21 07/25/19 Rx Tessalon Perle (Benzonatate) 100 Mg Capsule 1 Cap PO TID 07/25/19 Rx Prednisone 50 Mg Tablet 1 Tab PO DAILY 07/25/19 Rx Cyclobenzaprine Hcl 5 Mg Tablet 1 Tab PO TID 03/21/17 Rx Ibuprofen 800 Mg Tablet 800 Mg PO Q6-8HRS 03/21/17 Rx Zofran Odt (Ondansetron) 4 Mg Tab.rapdis 1 Tab SL Q8HRS 01/07/17 Rx Ultram (Tramadol Hcl) 50 Mg Tablet 1 Tab PO Q6HRS 01/29/16 Rx Comments CXR 08/06 CHF/ EFFUSION Impression . IMPRESSION: 1. Acute hypoxemic respiratory failure. MULTIFACTORIAL 2. Sepsis. 3. Pneumonia, suspect gram-negative, possibly gram-positive. 4. Influenza A. 5. New onset atrial fibrillation. 6. Peripheral vascular disease with possible peripheral emboli. 7. Metabolic acidosis. 8. Acute renal failure. 9. Severe protein malnutrition, present upon admission. 10. Elevated total bilirubin. 11. Abnormal cxr/ CHF Plan . extubated on 08/06, remains on N/C, cont. supplemental oxygent o keep sats above 92% Nebs Follow nephrology recs-- monitor sodium Antibiotics per ID cont. IV heparin and follow vascular surgery recs -- no alert and oriented to sign consent at this time, hope mentation will continue to improve CXR reviewed D/W INEZ PEÑA MD Aug 09, 2019 10:42
--- NOTE | 2019-08-09 12:01 | PDOC ---
PROGRESS NOTES History of Present Illness History of Present Illness VTE Prophylaxis Ordered VTE Prophylaxis Devices: Contraindicated VTE Pharmacological Prophylaxi: Yes Assessment/Plan Assessment/Plan impression 1. ACUTE HYPOXIC RESPIRATORY FAILURE 2. INFLUENZA A 3. Sepsis 4, PNA (pneumonia) 5. Altered mental status 6. ischemic right 4th toe 7. SONIA 8. a fib rvr 9. severe sepsis 10. homeless, self neglect due to lack of funds 11. 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 VENT SUPPORT D/C 08/06 CONSULT NEUROLOGY dvt prophylaxis vascular surgery FOLLOWING Nephrology consult cardiology consult cardizem drip IV HYDRALAZINE 10 MG Q 4 HRS PRN BP SUPPORT Let tissues demarcate and possibly areas heal. . Will continue heparin drip and Rooke boots. Family refuses to give consent for toe amputation 08/06 HyperNatremia- D5W IV , GUARDED PROGNOSIS extubated 08/07/19 AM Interval extubation. 08/08 NOT ALERT ENOUGH TO SIGN CONSENT Duration of Treatment Expected * 2 weeks Discharge Recommendations * Correction Unit 27 min cc time Vitals Vitals Vital Signs Date Time Temp Pulse Resp B/P (MAP) Pulse Ox O2 Delivery O2 Flow Rate FiO2 08/09/19 10:18 80 177/83 08/09/19 08:00 Nasal Cannula 2.0 08/09/19 07:39 96 08/09/19 07:00 100.0 18 100.0 Physical Exam Physical Exam GENERAL: Opens eyes to name, no response to questions or follows commands HEENT: Pupils equal, Oral cavity dry NECK: Supple. LUNGS: Clear, nonlabored HEART: S1, S2, irregular rhythm. ABDOMEN: Obese, soft, mildly distended : Valladares in place, 1 + scrotal swelling, erythema, EXTREMITIES: Ischemic changes right foot with 4 th toe gangrene toe. Left foot pink. Rooke boots bilaterally SKIN: Wrm to touch. No generalized rash. RIJ and R HD cath (08/02) without signs of complications . General: Alert, Oriented X3, Cooperative, No acute distress, Other (intubated) Heart: Regular rate, Normal S1, Other (irregular rhythm) Lungs: Clear Abdomen: Normal bowel sounds, Soft, No tenderness Extremities: No clubbing, No cyanosis, Other (ischemic right 4th toe) Skin: Other (right 4th toe lesion) Labs LABS Laboratory Tests Test 08/09/19 05:50 White Blood Count 10.0 x10^3/uL (4.0-11.0) Red Blood Count 3.79 x10^6/uL (4.30-5.70) Hemoglobin 12.1 g/dL (13.0-17.5) Hematocrit 36.1 % (39.0-53.0) Mean Corpuscular Volume 95 fL (79-100) Mean Corpuscular Hemoglobin 32 pg (25-35) Mean Corpuscular Hemoglobin Concent 34 g/dL (31-37) Red Cell Distribution Width 13.6 % (11.5-14.5) Platelet Count 270 x10^3/uL (140-400) Neutrophils (%) (Auto) 66 % (31-73) Lymphocytes (%) (Auto) 21 % (24-48) Monocytes (%) (Auto) 9 % (0-9) Eosinophils (%) (Auto) 3 % (0-3) Basophils (%) (Auto) 1 % (0-3) Neutrophils # (Auto) 6.6 x10^3/uL (1.8-7.7) Lymphocytes # (Auto) 2.1 x10^3/uL (1.0-4.8) Monocytes # (Auto) 0.9 x10^3/uL (0.0-1.1) Eosinophils # (Auto) 0.3 x10^3/uL (0.0-0.7) Basophils # (Auto) 0.1 x10^3/uL (0.0-0.2) Heparin Anti-Xa Act, Unfractionated 0.52 IU/mL (0.30-0.70) Sodium Level 152 mmol/L (136-145) Potassium Level 3.0 mmol/L (3.5-5.1) Chloride Level 113 mmol/L (98-107) Carbon Dioxide Level 29 mmol/L (21-32) Anion Gap 10 (6-14) Blood Urea Nitrogen 48 mg/dL (8-26) Creatinine 1.5 mg/dL (0.7-1.3) Estimated GFR (Cockcroft-Gault) 46.8 Glucose Level 95 mg/dL (70-99) Calcium Level 8.4 mg/dL (8.5-10.1) Assessment and Plan Assessmemt and Plan Problems Medical Problems: (1) Altered mental status Status: Acute ommunication * Very little verbal communication this date Activity Tolerance * Poor Activity Tolerance/ Vitals * Vital signs stable throughout treatment session. Sitting Balance * 1 Pt performs 25-50% Objective Measures Comment * Patient lethargic but arousable. Unable to follow commands at this time. Patient unable to state name. Pt able to verbalize "yes" when asked if he liked sitting on side of bed. RN notified increased swelling in R hand and tight bandaging around pt's R hand. RN ok with leaving mitts off at end of session. PT PAIN COMMENTS * Patient did note demonstrate any signs of pain at this time. Supine to Sit Assistance Required * Dependent Sit to Supine Assistance Required * Dependent * Two-Person Assistance Bed Mobility Comments * Patient able to move LE's off edge of bed but SBA-MAX for trunk flexion. Transfer Comments * Patient was MAX x 2 for supine to sit transfer. Able to move LE's off edge of bed with cuing. Pt sat EOB x 15 minutes with SBA-MAX A for trunk flexion. Pt more alert while sitting EOB. Unable to follow any commands at edge of bed. Ambulation Comments * Not safe for standing or ambulation at this time. Sitting Exercises * Long Arc Quads Sitting Exercises Comments * AAROM x 5 reps Other Information * Continued rehab efforts needed to progress pt towards goals of functional independence. Patient Stated Goal * Unable to state goals at this time Rehab Potential to Achieve Goals * Fair Learning Preferences * One-on-One Instruction Factors Facilitating Goal Achievement * Prior level of function Problem List (body system elements) * Impaired fnctnl mobility * Level of Consciousness * Strength * Cognition * ROM * Balance * Coordination Clinical Presentation * Evolving Evaluation Complexity Level * High Complexity Pt/caregiver agrees with plan of care/goals * Decreased Mentation Patient condition at conclusion of therapy * Pt in bed * Bed alarm on * Call light in reach * Phone in reach * PtIn no apparent distress * Pt denies further needs Communicated Patient Care With (Name, Title) * ASHOK Leonardo; TERESA Cabrera Goal 1 - Bed Mobility Assistance Required * Min Assistance Goal 1 Assessment * Appropriate - Continue Goal 2 - Transfers Assistance Required * Mod Assistance Goal 2 - Transfer Type * Sit to Stand * Stand-Pivot Goal 2 Assessment * Appropriate - Continue Goal 5 * Will tolerate sitting edge of bed x 15 minutes with standby assist Goal 5 Assessment * Appropriate - Continue Treatment Plan * Therapeutic Exercise * Bed Mobility Training * Transfer training * Neuromuscular Re-Ed Frequency of Treatment Expected * 7 visits/week Duration of Treatment Expected * 2 weeks Discharge Recommendations * Correction Unit Discharge Recommendation Comments * Would recommend SNU at this time Comment Review of Relevant I have reviewed the following items hay (where applicable) has been applied. Labs Laboratory Tests Test 08/08/19 05:00 08/08/19 05:17 08/08/19 08:25 08/09/19 05:50 White Blood Count 10.6 x10^3/uL (4.0-11.0) 10.0 x10^3/uL (4.0-11.0) Red Blood Count 3.72 x10^6/uL (4.30-5.70) 3.79 x10^6/uL (4.30-5.70) Hemoglobin 11.9 g/dL (13.0-17.5) 12.1 g/dL (13.0-17.5) Hematocrit 35.5 % (39.0-53.0) 36.1 % (39.0-53.0) Mean Corpuscular Volume 95 fL (79-100) 95 fL (79-100) Mean Corpuscular Hemoglobin 32 pg (25-35) 32 pg (25-35) Mean Corpuscular Hemoglobin Concent 34 g/dL (31-37) 34 g/dL (31-37) Red Cell Distribution Width 13.1 % (11.5-14.5) 13.6 % (11.5-14.5) Platelet Count 266 x10^3/uL (140-400) 270 x10^3/uL (140-400) Neutrophils (%) (Auto) 69 % (31-73) 66 % (31-73) Lymphocytes (%) (Auto) 19 % (24-48) 21 % (24-48) Monocytes (%) (Auto) 9 % (0-9) 9 % (0-9) Eosinophils (%) (Auto) 3 % (0-3) 3 % (0-3) Basophils (%) (Auto) 1 % (0-3) 1 % (0-3) Neutrophils # (Auto) 7.3 x10^3/uL (1.8-7.7) 6.6 x10^3/uL (1.8-7.7) Lymphocytes # (Auto) 2.0 x10^3/uL (1.0-4.8) 2.1 x10^3/uL (1.0-4.8) Monocytes # (Auto) 1.0 x10^3/uL (0.0-1.1) 0.9 x10^3/uL (0.0-1.1) Eosinophils # (Auto) 0.3 x10^3/uL (0.0-0.7) 0.3 x10^3/uL (0.0-0.7) Basophils # (Auto) 0.1 x10^3/uL (0.0-0.2) 0.1 x10^3/uL (0.0-0.2) Sodium Level 150 mmol/L (136-145) 152 mmol/L (136-145) Potassium Level 3.3 mmol/L (3.5-5.1) 3.0 mmol/L (3.5-5.1) Chloride Level 111 mmol/L (98-107) 113 mmol/L (98-107) Carbon Dioxide Level 30 mmol/L (21-32) 29 mmol/L (21-32) Anion Gap 9 (6-14) 10 (6-14) Blood Urea Nitrogen 58 mg/dL (8-26) 48 mg/dL (8-26) Creatinine 1.6 mg/dL (0.7-1.3) 1.5 mg/dL (0.7-1.3) Estimated GFR (Cockcroft-Gault) 43.5 46.8 BUN/Creatinine Ratio 36 (6-20) Glucose Level 90 mg/dL (70-99) 95 mg/dL (70-99) Calcium Level 8.8 mg/dL (8.5-10.1) 8.4 mg/dL (8.5-10.1) Total Bilirubin 1.3 mg/dL (0.2-1.0) Aspartate Amino Transf (AST/SGOT) 56 U/L (15-37) Alanine Aminotransferase (ALT/SGPT) 16 U/L (16-63) Alkaline Phosphatase 87 U/L (46-116) Total Protein 6.8 g/dL (6.4-8.2) Albumin 2.1 g/dL (3.4-5.0) Albumin/Globulin Ratio 0.4 (1.0-1.7) Heparin Anti-Xa Act, Unfractionated 0.14 IU/mL (0.30-0.70) 0.39 IU/mL (0.30-0.70) 0.52 IU/mL (0.30-0.70) Laboratory Tests Test 08/09/19 05:50 White Blood Count 10.0 x10^3/uL (4.0-11.0) Red Blood Count 3.79 x10^6/uL (4.30-5.70) Hemoglobin 12.1 g/dL (13.0-17.5) Hematocrit 36.1 % (39.0-53.0) Mean Corpuscular Volume 95 fL (79-100) Mean Corpuscular Hemoglobin 32 pg (25-35) Mean Corpuscular Hemoglobin Concent 34 g/dL (31-37) Red Cell Distribution Width 13.6 % (11.5-14.5) Platelet Count 270 x10^3/uL (140-400) Neutrophils (%) (Auto) 66 % (31-73) Lymphocytes (%) (Auto) 21 % (24-48) Monocytes (%) (Auto) 9 % (0-9) Eosinophils (%) (Auto) 3 % (0-3) Basophils (%) (Auto) 1 % (0-3) Neutrophils # (Auto) 6.6 x10^3/uL (1.8-7.7) Lymphocytes # (Auto) 2.1 x10^3/uL (1.0-4.8) Monocytes # (Auto) 0.9 x10^3/uL (0.0-1.1) Eosinophils # (Auto) 0.3 x10^3/uL (0.0-0.7) Basophils # (Auto) 0.1 x10^3/uL (0.0-0.2) Heparin Anti-Xa Act, Unfractionated 0.52 IU/mL (0.30-0.70) Sodium Level 152 mmol/L (136-145) Potassium Level 3.0 mmol/L (3.5-5.1) Chloride Level 113 mmol/L (98-107) Carbon Dioxide Level 29 mmol/L (21-32) Anion Gap 10 (6-14) Blood Urea Nitrogen 48 mg/dL (8-26) Creatinine 1.5 mg/dL (0.7-1.3) Estimated GFR (Cockcroft-Gault) 46.8 Glucose Level 95 mg/dL (70-99) Calcium Level 8.4 mg/dL (8.5-10.1) Microbiology 08/02/19 Blood Culture - Final, Complete NO GROWTH AFTER 5 DAYS 07/31/19 - Final, Complete 07/31/19 - Final, Complete 07/31/19 - Final, Complete 07/31/19 Gram Stain Evaluation - Final, Complete 07/31/19 Sputum Culture - Final, Complete 07/31/19 Sputum Result 1 - Final, Complete 07/30/19 Urine Culture - Final, Complete 07/30/19 Urine Culture Result 1 (SONIA) - Final, Complete Medications Current Medications Albuterol/ Ipratropium (Duoneb) 3 ml 1X ONCE NEB Last administered on 07/30/19at 18:00; Start 07/30/19 at 18:00; Stop 07/30/19 at 18:01; Status DC Albuterol Sulfate (Ventolin Neb Soln) 10 mg 1X ONCE CONT NEB Last administered on 07/30/19at 18:00; Start 07/30/19 at 18:00; Stop 07/30/19 at 18:01; Status DC Morphine Sulfate (Morphine Sulfate) 2 mg PRN Q15MIN PRN IV/SQ PAIN GREATER THAN 3/10 Last administered on 07/30/19at 18:08; Start 07/30/19 at 18:00; Stop 07/31/19 at 00:10; Status DC Diltiazem HCl (Cardizem Iv Push) 10 mg 1X ONCE IVP Last administered on 07/30/19at 18:01; Start 07/30/19 at 18:00; Stop 07/30/19 at 18:01; Status DC Diltiazem HCl 125 mg/Sodium Chloride 125 ml @ 5 mls/hr 1X ONCE IV Last administered on 07/30/19at 18:36; Start 07/30/19 at 18:00; Stop 07/31/19 at 18:59; Status DC Lorazepam (Ativan Inj) 2 mg 1X ONCE IVP Last administered on 07/30/19at 18:35; Start 07/30/19 at 18:15; Stop 07/30/19 at 18:16; Status DC Lorazepam (Ativan Inj) 2 mg STK-MED ONCE .ROUTE ; Start 07/30/19 at 18:14; Stop 07/30/19 at 18:14; Status DC Digoxin (Lanoxin) 250 mcg 1X ONCE IV Last administered on 07/30/19at 18:53; Start 07/30/19 at 18:45; Stop 07/30/19 at 18:46; Status DC Amiodarone HCl 150 mg/Dextrose 103 ml @ 618 mls/hr 1X ONCE IV Last administered on 07/30/19at 20:07; Start 07/30/19 at 18:45; Stop 07/30/19 at 18:54; Status DC Amiodarone HCl 450 mg/Dextrose 259 ml @ 0 mls/hr CONT PRN IV SEE I/O RECORD Last administered on 07/30/19at 20:21; Start 07/30/19 at 18:45 Sodium Chloride 1,000 ml @ 1,000 mls/hr 1X ONCE IV Last administered on 07/30/19at 18:20; Start 07/30/19 at 18:45; Stop 07/31/19 at 02:15; Status DC Sodium Chloride 2,130 ml @ 2,130 mls/hr Q1H IV Last administered on 07/30/19at 19:02; Start 07/30/19 at 18:53; Stop 07/31/19 at 02:15; Status DC Piperacillin Sod/ Tazobactam Sod 4.5 gm/Sodium Chloride 100 ml @ 200 mls/hr 1X ONCE IV Last administered on 07/30/19at 19:06; Start 07/30/19 at 19:00; Stop 07/31/19 at 08:04; Status DC Vancomycin HCl (Vanco Per Pharmacy) 1 each 1X ONCE MC ; Start 07/30/19 at 19:00; Stop 07/31/19 at 08:04; Status DC Norepinephrine Bitartrate 8 mg/ Dextrose 258 ml @ 0 mls/hr CONT PRN IV PER PROTOCOL; Start 07/30/19 at 19:00; Stop 07/31/19 at 08:04; Status DC Potassium Chloride/Water 100 ml @ 100 mls/hr Q1H IV Last administered on 07/30/19at 21:31; Start 07/30/19 at 19:30; Stop 07/30/19 at 21:29; Status DC Vancomycin HCl 2 gm/Sodium Chloride 500 ml @ 250 mls/hr 1X ONCE IV Last administered on 07/30/19at 20:15; Start 07/30/19 at 19:15; Stop 07/30/19 at 21:14; Status DC Fentanyl Citrate (Fentanyl 2ml Vial) 25 mcg PRN Q1HR PRN IV SEE COMMENTS; Start 07/30/19 at 19:15; Stop 07/31/19 at 00:11; Status DC Fentanyl Citrate (Fentanyl 2ml Vial) 50 mcg PRN Q1HR PRN IV SEE COMMENTS; Start 07/30/19 at 19:15; Stop 07/31/19 at 00:11; Status DC Chlorhexidine Gluconate (Peridex) 15 ml BID MM Last administered on 08/06/19at 21:19; Start 07/30/19 at 21:00; Stop 08/07/19 at 11:18; Status DC Morphine Sulfate (Morphine Sulfate) 2 mg PRN Q1HR PRN IV SEE COMMENTS.; Start 07/30/19 at 19:15; Stop 07/31/19 at 00:11; Status DC Morphine Sulfate (Morphine Sulfate) 4 mg PRN Q1HR PRN IV SEE COMMENTS.; Start 07/30/19 at 19:15; Stop 07/31/19 at 00:11; Status DC Midazolam HCl 50 mg/Sodium Chloride 50 ml @ 0 mls/hr CONT PRN IV SEE PROTOCOL Last administered on 07/30/19at 20:40; Start 07/30/19 at 19:15; Stop 07/31/19 at 00:10; Status DC Acetaminophen (Tylenol Supp) 650 mg 1X ONCE DC Last administered on 07/30/19at 20:49; Start 07/30/19 at 20:15; Stop 07/30/19 at 20:16; Status DC Ondansetron HCl (Zofran) 4 mg PRN Q8HRS PRN IV NAUSEA/VOMITING; Start 07/30/19 at 20:30; Stop 07/31/19 at 20:29; Status DC Acetaminophen (Tylenol) 650 mg PRN Q4HRS PRN PO FEVER Last administered on 07/31/19at 12:49; Start 07/30/19 at 20:30; Stop 07/31/19 at 20:29; Status DC Heparin Sodium/ Dextrose 250 ml @ 0 mls/hr CONT PRN IV PER PROTOCOL Last administered on 08/09/19at 05:05; Start 07/30/19 at 20:45 Heparin Sodium (Porcine) (Heparin Sodium) 2,200 unit PRN Q6HRS PRN IV FOR UFH LEVEL LESS THAN 0.2 Last administered on 08/01/19at 15:42; Start 07/30/19 at 20:45 Info (Anti-Coagulation Monitoring By Pharmacy) 1 each PRN DAILY PRN MC SEE COMM ENTS Last administered on 08/08/19at 13:21; Start 07/30/19 at 21:00 Etomidate (Amidate) 20 mg STK-MED ONCE IV ; Start 07/30/19 at 21:15; Stop 07/30/19 at 21:16; Status DC Rocuronium [place] (Zemuron) 50 mg STK-MED ONCE .ROUTE ; Start 07/30/19 at 21:16; Stop 07/30/19 at 21:16; Status DC Diltiazem HCl 125 mg/Sodium Chloride 125 ml @ 5 mls/hr CONT PRN IV SEE I/O RECORD; Start 07/30/19 at 22:30; Stop 07/31/19 at 06:01; Status DC Sodium Bicarbonate 100 meq/Dextrose 1,100 ml @ 75 mls/hr 1X ONCE IV Last administered on 07/31/19at 01:54; Start 07/30/19 at 23:00; Stop 07/31/19 at 13:39; Status DC Etomidate (Amidate) 20 mg 1X ONCE IV Last administered on 07/30/19at 19:27; Start 07/30/19 at 23:45; Stop 07/30/19 at 23:46; Status DC Rocuronium [place] (Zemuron) 50 mg 1X ONCE IV Last administered on 07/30/19at 19:28; Start 07/30/19 at 23:45; Stop 07/30/19 at 23:46; Status DC Rocuronium [place] (Zemuron) 50 mg 1X ONCE IV Last administered on 07/30/19at 19:28; Start 07/30/19 at 23:45; Stop 07/30/19 at 23:46; Status DC Digoxin (Lanoxin) 250 mcg 1X ONCE IV Last administered on 07/31/19at 00:12; Start 07/31/19 at 00:30; Stop 07/31/19 at 00:31; Status DC Heparin Sodium/ Dextrose 250 ml @ 0 mls/hr CONT PRN IV SEE I/O RECORD; Start 07/31/19 at 00:00; Status UNV Fentanyl Citrate 30 ml @ 0 mls/hr CONT PRN IV SEE PROTOCOL Last administered on 08/06/19at 06:48; Start 07/31/19 at 00:15; Stop 08/07/19 at 11:18; Status DC Midazolam HCl 50 mg/Sodium Chloride 50 ml @ 0 mls/hr CONT PRN IV SEE PROTOCOL Last administered on 08/06/19at 06:48; Start 07/31/19 at 00:15; Stop 08/07/19 at 11:18; Status DC Diltiazem HCl 125 mg/Sodium Chloride 125 ml @ 5 mls/hr CONT PRN IV SEE I/O RECORD Last administered on 08/01/19at 03:03; Start 07/31/19 at 01:00 Albuterol/ Ipratropium (Duoneb) 3 ml Q4HRS NEB Last administered on 08/09/19at 07:39; Start 07/31/19 at 04:00 Sodium Chloride 1,000 ml @ 120 mls/hr Q8H20M IV Last administered on 07/31/19at 02:30; Start 07/31/19 at 02:30; Stop 07/31/19 at 13:55; Status DC Vancomycin HCl (Vanco Per Pharmacy) 1 each PRN DAILY PRN MC SEE COMMENTS Last administered on 07/31/19at 03:30; Start 07/31/19 at 02:30; Stop 07/31/19 at 08:06; Status DC Vancomycin HCl 1.25 gm/Sodium Chloride 250 ml @ 167 mls/hr Q12H IV Last administered on 07/31/19at 07:57; Start 07/31/19 at 08:00; Stop 2/28/20 at 08:06; Status DC Vancomycin HCl (Vancomycin Trough Level) 1 each 1X ONCE MC ; Start 08/01/19 at 07:30; Stop 08/01/19 at 07:31; Status Cancel Micafungin Sodium 100 mg/Dextrose 100 ml @ 100 mls/hr Q24H IV Last administered on 08/09/19at 08:45; Start 07/31/19 at 08:00 Oseltamivir Phosphate (Tamiflu) 30 mg BID PO Last administered on 08/04/19at 21:02; Start 07/31/19 at 09:00; Stop 08/05/19 at 08:59; Status DC Linezolid/Dextrose 300 ml @ 300 mls/hr Q12HR IV Last administered on 08/04/19at 21:02; Start 07/31/19 at 09:00; Stop 08/05/19 at 08:02; Status DC Daptomycin 490 mg/ Sodium Chloride 50 ml @ 100 mls/hr Q24H IV Last administered on 07/31/19at 12:40; Start 07/31/19 at 10:00; Stop 08/01/19 at 09:01; Status DC Meropenem 1 gm/ Sodium Chloride 100 ml @ 200 mls/hr Q12HR IV Last administered on 08/09/19at 10:17; Start 07/31/19 at 09:00 Potassium Bicarbonate (Potassium Effervescent Tablet) 40 meq 1X ONCE PEG Last administered on 07/31/19at 10:54; Start 07/31/19 at 10:30; Stop 07/31/19 at 1 0:43; Status DC Famotidine (Pepcid Vial) 20 mg QHS IVP Last administered on 08/08/19at 20:59; Start 07/31/19 at 21:00 Albumin Human 100 ml @ 100 mls/hr TID IV Last administered on 08/02/19at 09:44; Start 07/31/19 at 14:30; Stop 08/02/19 at 09:59; Status DC Sodium Chloride 2,340 ml @ 2,340 mls/hr Q1H IV ; Start 07/31/19 at 14:48; Status UNV Sodium Chloride 500 ml @ 1,000 mls/hr PRN Q30MIN PRN IV SEE COMMENTS; Start 07/31/19 at 15:00; Status UNV Dobutamine HCl/ Dextrose 250 ml @ 0 mls/hr CONT PRN IV SEE I/O RECORD; Start 07/31/19 at 15:00; Status UNV Ondansetron HCl (Zofran) 4 mg PRN Q6HRS PRN IV NAUSEA/VOMITING; Start 07/31/19 at 15:00 Prochlorperazine (Compazine) 25 mg PRN Q12HR PRN DC NAUSEA/VOMITING; Start 07/31/19 at 15:00 Famotidine (Pepcid Vial) 20 mg BID IVP ; Start 07/31/19 at 21:00; Status UNV Sodium Chloride (Normal Saline Flush) 3 ml QSHIFT PRN IV AFTER MEDS AND BLOOD DRAWS; Start 07/31/19 at 15:00 Bisacodyl (Dulcolax Supp) 10 mg PRN DAILY PRN DC CONSTIPATION; Start 07/31/19 at 15:00 Thiamine HCl 100 mg/Dextrose 51 ml @ 102 mls/hr DAILY IV Last administered on 08/05/19at 10:15; Start 07/31/19 at 17:00; Stop 08/05/19 at 23:00; Status DC Vitamin A/Vitamin D (Vitamin A & D Ointment) 1 [place] PRN Q1HR PRN TP SKIN PROTECTION Last administered on 08/03/19at 08:14; Start 07/31/19 at 16:45 Daptomycin 490 mg/ Sodium Chloride 50 ml @ 100 mls/hr Q48H IV Last administered on 08/03/19at 11:19; Start 08/01/19 at 10:00; Stop 08/04/19 at 07:59; Status DC Furosemide (Lasix) 40 mg 1X ONCE IVP Last administered on 08/01/19at 22:14; Start 08/01/19 at 22:30; Stop 08/01/19 at 22:31; Status DC Potassium Bicarbonate (Potassium Effervescent Tablet) 20 meq 1X ONCE PEG Last administered on 08/01/19at 22:14; Start 08/01/19 at 22:30; Stop 08/01/19 at 22:31; Status DC Lidocaine HCl (Buffered Lidocaine 1%) 3 ml STK-MED ONCE .ROUTE ; Start 08/03/19 at 09:05; Stop 08/03/19 at 09:05; Status DC Lidocaine HCl (Buffered Lidocaine 1%) 3 ml 1X ONCE INJ Last administered on 08/03/19at 09:28; Start 08/03/19 at 09:30; Stop 08/03/19 at 09:31; Status DC Multivitamins/ Minerals Therapeutic (Centrum Multivit-Mineral Liq) 5 ml DAILY PEG Last administered on 08/06/19at 10:26; Start 08/03/19 at 12:00 Sodium Chloride 1,000 ml @ 1,000 mls/hr Q1H PRN IV hypotension; Start 08/03/19 at 13:31; Stop 08/03/19 at 19:30; Status DC Sodium Chloride 1,000 ml @ 400 mls/hr Q2H30M PRN IV PATENCY; Start 08/03/19 at 13:31; Stop 08/04/19 at 01:30; Status DC Info (PHARMACY MONITORING -- do not chart) 1 each PRN DAILY PRN MC SEE COMMENTS; Start 08/03/19 at 13:45; Status UNV Info (PHARMACY MONITORING -- do not chart) 1 each PRN DAILY PRN MC SEE COMMENTS; Start 08/03/19 at 13:45; Stop 08/07/19 at 16:56; Status DC Ondansetron HCl (Zofran) 4 mg PRN Q6HRS PRN IV NAUSEA/VOMITING; Start 08/04/19 at 07:00; Stop 08/05/19 at 06:59; Status DC Fentanyl Citrate (Fentanyl 2ml Vial) 25 mcg PRN Q5MIN PRN IV MILD PAIN 1-3; Start 08/04/19 at 07:00; Stop 08/05/19 at 06:59; Status DC Fentanyl Citrate (Fentanyl 2ml Vial) 50 mcg PRN Q5MIN PRN IV MODERATE TO SEVERE PAIN; Start 08/04/19 at 07:00; Stop 08/05/19 at 06:59; Status DC Ringer's Solution 1,000 ml @ 30 mls/hr Q24H IV ; Start 08/04/19 at 07:00; Stop 08/04/19 at 18:59; Status DC Prochlorperazine Edisylate (Compazine) 5 mg PACU PRN PRN IV NAUSEA, MRX1; Start 08/04/19 at 07:00; Stop 08/05/19 at 06:59; Status DC Cefazolin Sodium 1 gm/Sodium Chloride 500 ml @ 500 mls/hr 1X ONCE IRR ; Start 08/04/19 at 06:00; Stop 08/04/19 at 06:59; Status DC Metoprolol Tartrate (Lopressor Vial) 5 mg Q6HRS IVP Last administered on 08/07/19at 11:35; Start 08/05/19 at 18:00; Stop 08/07/19 at 16:50; Status DC Thiamine Mononitrate (Vitamin B-1) 100 mg DAILY PEG Last administered on at 10:26; Start 08/06/19 at 09:00 Sodium Chloride 1,000 ml @ 1,000 mls/hr Q1H PRN IV hypotension; Start 08/05/19 at 16:00; Stop 08/05/19 at 21:59; Status DC Sodium Chloride (Normal Saline Flush) 10 ml 1X PRN PRN IV AP catheter pack; Start 08/05/19 at 16:00; Stop 08/06/19 at 15:59; Status DC Sodium Chloride (Normal Saline Flush) 10 ml 1X PRN PRN IV 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; Start 08/05/19 at 16:00; Stop 08/06/19 at 15:59; Status DC Info (PHARMACY MONITORING -- do not chart) 1 each PRN DAILY PRN MC SEE COMMENTS; Start 08/05/19 at 20:30 Info (PHARMACY MONITORING -- do not chart) 1 each PRN DAILY PRN MC SEE COMMENTS; Start 08/05/19 at 20:30; Status UNV Propofol 100 ml @ 0 mls/hr CONT PRN IV SEE PROTOCOL Last administered on 08/06/19at 13:51; Start 08/06/19 at 13:45; Stop 08/07/19 at 11:18; Status DC Furosemide (Lasix) 40 mg 1X ONCE IVP Last administered on 08/07/19at 10:32; Start 08/07/19 at 10:15; Stop 08/07/19 at 10:19; Status DC Metoprolol Tartrate (Lopressor Vial) 7.5 mg Q6HRS IVP Last administered on 08/09/19at 05:17; Start 08/07/19 at 18:00 Hydralazine HCl (Apresoline Inj) 10 mg PRN Q4HRS PRN IVP ELEVATED BP, SEE COMMENTS Last administered on 08/08/19at 22:36; Start 08/07/19 at 17:00; Stop 08/09/19 at 07:42; Status DC Lorazepam (Ativan Inj) 0.5 mg PRN Q4HRS PRN IVP ANXIETY / AGITATION Last administered on 08/09/19at 03:57; Start 08/07/19 at 19:30 Acetaminophen (Tylenol Supp) 650 mg PRN Q6HRS PRN DC MILD PAIN / TEMP Last administered on 08/09/19at 07:27; Start 08/07/19 at 19:30 Hydralazine HCl (Apresoline Inj) 10 mg PRN Q4HRS PRN IVP ELEVATED BP, SEE COMMENTS Last administered on 08/09/19at 10:18; Start 08/08/19 at 12:45 Dextrose 1,000 ml @ 50 mls/hr Q20H IV Last administered on 08/09/19at 10:16; Start 08/08/19 at 16:30 Active Scripts Active Proair Hfa (Albuterol Sulfate) 8.5 Gm Hfa.aer.ad 2 Puff IH PRN Q4-6HRS PRN 21 Days Tessalon Perle (Benzonatate) 100 Mg Capsule 1 Cap PO TID Prednisone 50 Mg Tablet 1 Tab PO DAILY Cyclobenzaprine Hcl 5 Mg Tablet 1 Tab PO TID Ibuprofen 800 Mg Tablet 800 Mg PO Q6-8HRS Zofran Odt (Ondansetron) 4 Mg Tab.rapdis 1 Tab SL Q8HRS Ultram (Tramadol Hcl) 50 Mg Tablet 1 Tab PO Q6HRS Vitals/I & O Vital Sign - Last 24 Hours 08/08/19 08/08/19 08/08/19 08/08/19 12:26 13:00 14:00 15:00 Pulse 79 66 77 86 Resp 27 25 28 B/P (MAP) 170/76 160/75 (103) 155/68 (97) 157/70 (99) Pulse Ox 96 95 97 O2 Delivery Nasal Cannula Nasal Cannula Nasal Cannula O2 Flow Rate 2.0 2.0 2.0 08/08/19 08/08/19 08/08/19 08/08/19 16:00 16:00 16:13 16:15 Temp 98.8 98.8 Pulse 73 81 Resp 30 B/P (MAP) 178/71 (106) 184/37 Pulse Ox 97 O2 Delivery Nasal Cannula Nasal Cannula Nasal Cannula O2 Flow Rate 2.0 2.0 3.0 08/08/19 08/08/19 08/08/19 08/08/19 17:00 17:41 18:00 19:00 Temp 98.8 98.8 Pulse 90 93 85 86 Resp 24 23 24 B/P (MAP) 158/69 (98) 140/67 149/68 (95) 167/69 (101) Pulse Ox 95 95 95 O2 Delivery Nasal Cannula Nasal Cannula Nasal Cannula O2 Flow Rate 2.0 2.0 2.0 08/08/19 08/08/19 08/08/19 08/08/19 19:21 20:00 20:13 21:06 Temp 98.7 98.7 98.7 98.7 Pulse 90 85 Resp 16 26 B/P (MAP) 159/74 (102) 155/65 (95) Pulse Ox 95 95 96 O2 Delivery Nasal Cannula Nasal Cannula Nasal Cannula Nasal Cannula O2 Flow Rate 3.0 3.0 3.0 3.0 08/08/19 08/08/19 08/08/19 08/08/19 22:08 22:36 23:05 23:45 Temp 98.7 98.7 Pulse 87 85 89 Resp 32 B/P (MAP) 152/70 (97) 161/70 168/67 (100) Pulse Ox 96 96 95 O2 Delivery Nasal Cannula Nasal Cannula Nasal Cannula O2 Flow Rate 3.0 3.0 3.0 08/08/19 08/09/19 08/09/19 08/09/19 23:56 00:07 00:57 01:46 Temp 98.7 98.7 98.7 98.7 Pulse 82 78 84 Resp 20 B/P (MAP) 150/66 159/70 (99) 178/73 (108) Pulse Ox 97 96 O2 Delivery Nasal Cannula Nasal Cannula Nasal Cannula O2 Flow Rate 3.0 3.0 3.0 08/09/19 08/09/19 08/09/19 08/09/19 03:37 04:00 04:00 05:11 Temp 98.7 98.7 98.7 98.7 Pulse 86 87 Resp 28 B/P (MAP) 173/77 (109) 183/74 (110) Pulse Ox 96 97 97 O2 Delivery Nasal Cannula Nasal Cannula Nasal Cannula Nasal Cannula O2 Flow Rate 3.0 3.0 3.0 3.0 08/09/19 08/09/19 08/09/19 08/09/19 05:17 06:10 07:00 07:39 Temp 98.7 100.0 98.7 100.0 Pulse 87 57 82 Resp 26 18 B/P (MAP) 183/74 146/71 (96) 145/71 (95) Pulse Ox 96 97 96 O2 Delivery Nasal Cannula Nasal Cannula Nasal Cannula O2 Flow Rate 3.0 2.0 3.0 08/09/19 08/09/19 08:00 10:18 Pulse 80 B/P (MAP) 177/83 O2 Delivery Nasal Cannula O2 Flow Rate 2.0 Intake and Output 08/08/19 08/08/19 08/09/19 15:00 23:00 07:00 Intake Total 1084 ml 50 ml Output Total 385 ml 650 ml 600 ml Balance -385 ml 434 ml -550 ml Nutrition Consultation Dietary Evaluation: Recommendations by RD: Dietary education by RD, Increase Calorie Intake, Protein supplementation Comments: REC advance diet as able s/p extubation pending [employer] eval, goal diet regular w/Javi BID and MVI for wound healing If unable to advance diet within 48 - 72 hrs of extubation, recommend consideration of dobhoff placement for TFs per following: Jevity 1.5@goal rate 60 ml/hr w/200 ml water flushes q4 hrs, w/Javi BID via dobhoff and liquid MVI (wound healing) Expected Outcomes/Goals: New goal 08/02: TF infusion to meet >75% est needs - new goal established New goal 08/06: intiaition of nutrition within 24 - 72 hrs s/p extubation Malnutrition Findings: Food and Nutrition Intake (Mod: <75% est energy req 7days Body Fat Depletion (Non Severe: Mild Depletion Weight Status: Appropriate CORY SCHMIDT MD Aug 09, 2019 12:01
--- NOTE | 2019-08-09 12:25 | PDOC ---
SUBJECTIVE ROS stable OBJECTIVE Vital Signs Vital Signs Date Time Temp Pulse Resp B/P (MAP) Pulse Ox O2 Delivery O2 Flow Rate FiO2 08/09/19 12:05 75 179/78 08/09/19 12:00 98.7 18 96 Nasal Cannula 2.0 98.7 I & 0 Intake and Output 08/09/19 07:00 Intake Total 1134 ml Output Total 1635 ml Balance -501 ml Intake Oral 0 ml IV Total 1084 ml Blood Product IV Normal Saline Flush 50 ml Output Urine Total 1635 ml # Bowel Movements 2 PHYSICAL EXAM Physical Exam GENERAL: NAD HEENT: Extubated, On o2 by NC NECK: Supple. LUNGS: Diminished aeration bases HEART: S1, S2, irregular rhythm. ABDOMEN: Obese, soft, : Valladares in place EXTREMITIES: Ischemic changes right foot with bullous lesion/gangrene; DERMATOLOGIC: No generalized rash. DIAGNOSIS/ASSESSMENT Assessment & Plan ARF: Possible ATN: Initially Oliguric, Initiated on Hemodialysis 08/02 , 2 nd on 08/04 - Improving renal function , Good UOP Supportive care , avoid nephrotoxins , can dc hemodialysis catheter HyperNatremia- D5W IV , Magno RN Septic shock, GPC in chains/pairs bacteremia TTE (07/31) no evidence veg Rt 4th toe has black gangrene and an open wound on the lateral toe deep to the bone- vascular Recommends right 4th toe amputation Influenza A 07/30 , respiratory tract infection. Acute hypoxic respiratory failure with pneumonia, status post intubation. 07/31. strep pneumo Severe peripheral vascular disease, right foot ischemia/gangrene Encephalopathy.- sedated Lactic acidosis. Hyperbilirubinemia/LFT elevation. Atrial fibrillation with rapid ventricular response, on amiodarone. COMMENT/RELEVANT DATA Meds Current Medications Medications (Trade) Dose Ordered Sig/Casper Start Time Stop Time Status Last Admin Dose Admin Acetaminophen (Tylenol Supp) 650 mg PRN Q6HRS PRN 08/07/19 19:30 08/09/19 07:27 650 MG Acetaminophen (Tylenol) 650 mg PRN Q4HRS PRN 07/30/19 20:30 07/31/19 20:29 DC 07/31/19 12:49 650 MG Albumin Human 100 ml @ 100 mls/hr TID 07/31/19 14:30 08/02/19 09:59 DC 08/02/19 09:44 100 MLS/HR Albuterol Sulfate (Ventolin Neb Soln) 10 mg 1X ONCE 07/30/19 18:00 07/30/19 18:01 DC 07/30/19 18:00 10 MG Albuterol/ Ipratropium (Duoneb) 3 ml Q4HRS 07/31/19 04:00 08/09/19 07:39 3 ML Amiodarone HCl 150 mg/Dextrose 103 ml @ 618 mls/hr 1X ONCE 07/30/19 18:45 07/30/19 18:54 DC 07/30/19 20:07 618 MLS/HR Amiodarone HCl 450 mg/Dextrose 259 ml @ 0 mls/hr CONT PRN 07/30/19 18:45 07/30/19 20:21 33.3 MLS/HR Bisacodyl (Dulcolax Supp) 10 mg PRN DAILY PRN 07/31/19 15:00 Cefazolin Sodium 1 gm/Sodium Chloride 500 ml @ 500 mls/hr 1X ONCE 08/04/19 06:00 08/04/19 06:59 DC Chlorhexidine Gluconate (Peridex) 15 ml BID 07/30/19 21:00 08/07/19 11:18 DC 08/06/19 21:19 15 ML Daptomycin 490 mg/ Sodium Chloride 50 ml @ 100 mls/hr Q48H 08/01/19 10:00 08/04/19 07:59 DC 08/03/19 11:19 100 MLS/HR Dextrose 1,000 ml @ 50 mls/hr Q20H 08/08/19 16:30 08/09/19 10:16 50 MLS/HR Digoxin (Lanoxin) 250 mcg 1X ONCE 07/31/19 00:30 07/31/19 00:31 DC 07/31/19 00:12 250 MCG Diltiazem HCl (Cardizem Iv Push) 10 mg 1X ONCE 07/30/19 18:00 07/30/19 18:01 DC 07/30/19 18:01 10 MG Diltiazem HCl 125 mg/Sodium Chloride 125 ml @ 5 mls/hr CONT PRN 07/31/19 01:00 08/01/19 03:03 5 MLS/HR Dobutamine HCl/ Dextrose 250 ml @ 0 mls/hr CONT PRN 07/31/19 15:00 UNV Etomidate (Amidate) 20 mg 1X ONCE 07/30/19 23:45 07/30/19 23:46 DC 07/30/19 19:27 20 MG Famotidine (Pepcid Vial) 20 mg BID 07/31/19 21:00 UNV Fentanyl Citrate (Fentanyl 2ml Vial) 50 mcg PRN Q5MIN PRN 08/04/19 07:00 08/05/19 06:59 DC Furosemide (Lasix) 40 mg 1X ONCE 08/07/19 10:15 08/07/19 10:19 DC 08/07/19 10:32 40 MG Heparin Sodium (Porcine) (Heparin Sodium) 2,200 unit PRN Q6HRS PRN 07/30/19 20:45 08/01/19 15:42 2,200 UNIT Heparin Sodium/ Dextrose 250 ml @ 0 mls/hr CONT PRN 07/31/19 00:00 UNV Hydralazine HCl (Apresoline Inj) 10 mg PRN Q4HRS PRN 08/08/19 12:45 08/09/19 10:18 10 MG Info (Anti-Coagulation Monitoring By Pharmacy) 1 each PRN DAILY PRN 07/30/19 21:00 08/08/19 13:21 1 EACH Info (PHARMACY MONITORING -- do not chart) 1 each PRN DAILY PRN 08/05/19 20:30 UNV Lidocaine HCl (Buffered Lidocaine 1%) 3 ml 1X ONCE 08/03/19 09:30 08/03/19 09:31 DC 08/03/19 09:28 3 ML Linezolid/Dextrose 300 ml @ 300 mls/hr Q12HR 07/31/19 09:00 08/05/19 08:02 DC 08/04/19 21:02 300 MLS/HR Lorazepam (Ativan Inj) 0.5 mg PRN Q4HRS PRN 08/07/19 19:30 08/09/19 03:57 0.5 MG Meropenem 1 gm/ Sodium Chloride 100 ml @ 200 mls/hr Q12HR 07/31/19 09:00 08/09/19 10:17 200 MLS/HR Metoprolol Tartrate (Lopressor Vial) 7.5 mg Q6HRS 08/07/19 18:00 08/09/19 12:05 7.5 MG Micafungin Sodium 100 mg/Dextrose 100 ml @ 100 mls/hr Q24H 07/31/19 08:00 08/09/19 08:45 100 MLS/HR Midazolam HCl 50 mg/Sodium Chloride 50 ml @ 0 mls/hr CONT PRN 07/31/19 00:15 08/07/19 11:18 DC 08/06/19 06:48 7 MLS/HR Morphine Sulfate (Morphine Sulfate) 4 mg PRN Q1HR PRN 07/30/19 19:15 07/31/19 00:11 DC Multivitamins/ Minerals Therapeutic (Centrum Multivit-Mineral Liq) 5 ml DAILY 08/03/19 12:00 08/06/19 10:26 5 ML Norepinephrine Bitartrate 8 mg/ Dextrose 258 ml @ 0 mls/hr CONT PRN 07/30/19 19:00 07/31/19 08:04 DC Ondansetron HCl (Zofran) 4 mg PRN Q6HRS PRN 08/04/19 07:00 08/05/19 06:59 DC Oseltamivir Phosphate (Tamiflu) 30 mg BID 07/31/19 09:00 08/05/19 08:59 DC 08/04/19 21:02 30 MG Piperacillin Sod/ Tazobactam Sod 4.5 gm/Sodium Chloride 100 ml @ 200 mls/hr 1X ONCE 07/30/19 19:00 07/31/19 08:04 DC 07/30/19 19:06 200 MLS/HR Potassium Bicarbonate (Potassium Effervescent Tablet) 20 meq 1X ONCE 08/01/19 22:30 08/01/19 22:31 DC 08/01/19 22:14 20 MEQ Potassium Chloride/Water 100 ml @ 100 mls/hr Q1H 07/30/19 19:30 07/30/19 21:29 DC 07/30/19 21:31 100 MLS/HR Prochlorperazine (Compazine) 25 mg PRN Q12HR PRN 07/31/19 15:00 Prochlorperazine Edisylate (Compazine) 5 mg PACU PRN PRN 08/04/19 07:00 08/05/19 06:59 DC Propofol 100 ml @ 0 mls/hr CONT PRN 08/06/19 13:45 08/07/19 11:18 DC 08/06/19 13:51 7.4 MLS/HR Ringer's Solution 1,000 ml @ 30 mls/hr Q24H 08/04/19 07:00 08/04/19 18:59 DC Rocuronium Siren (Zemuron) 50 mg 1X ONCE 07/30/19 23:45 07/30/19 23:46 DC 07/30/19 19:28 50 MG Sodium Bicarbonate 100 meq/Dextrose 1,100 ml @ 75 mls/hr 1X ONCE 07/30/19 23:00 07/31/19 13:39 DC 07/31/19 01:54 75 MLS/HR Sodium Chloride (Normal Saline Flush) 10 ml 1X PRN PRN 08/05/19 16:00 08/06/19 15:59 DC Thiamine Mononitrate (Vitamin B-1) 100 mg DAILY 08/06/19 09:00 08/06/19 10:26 100 MG Thiamine HCl 100 mg/Dextrose 51 ml @ 102 mls/hr DAILY 07/31/19 17:00 08/05/19 23:00 DC 08/05/19 10:15 102 MLS/HR Vancomycin HCl (Vanco Per Pharmacy) 1 each PRN DAILY PRN 07/31/19 02:30 07/31/19 08:06 DC 07/31/19 03:30 1 EACH Vancomycin HCl (Vancomycin Trough Level) 1 each 1X ONCE 08/01/19 07:30 08/01/19 07:31 Cancel Vancomycin HCl 1.25 gm/Sodium Chloride 250 ml @ 167 mls/hr Q12H 07/31/19 08:00 07/31/19 08:06 DC 07/31/19 07:57 167 MLS/HR Vancomycin HCl 2 gm/Sodium Chloride 500 ml @ 250 mls/hr 1X ONCE 07/30/19 19:15 07/30/19 21:14 DC 07/30/19 20:15 250 MLS/HR Vitamin A/Vitamin D (Vitamin A & D Ointment) 1 milton PRN Q1HR PRN 07/31/19 16:45 08/03/19 08:14 1 [place] Lab Laboratory Tests Test 08/09/19 05:50 White Blood Count 10.0 x10^3/uL (4.0-11.0) Red Blood Count 3.79 x10^6/uL (4.30-5.70) Hemoglobin 12.1 g/dL (13.0-17.5) Hematocrit 36.1 % (39.0-53.0) Mean Corpuscular Volume 95 fL (79-100) Mean Corpuscular Hemoglobin 32 pg (25-35) Mean Corpuscular Hemoglobin Concent 34 g/dL (31-37) Red Cell Distribution Width 13.6 % (11.5-14.5) Platelet Count 270 x10^3/uL (140-400) Neutrophils (%) (Auto) 66 % (31-73) Lymphocytes (%) (Auto) 21 % (24-48) Monocytes (%) (Auto) 9 % (0-9) Eosinophils (%) (Auto) 3 % (0-3) Basophils (%) (Auto) 1 % (0-3) Neutrophils # (Auto) 6.6 x10^3/uL (1.8-7.7) Lymphocytes # (Auto) 2.1 x10^3/uL (1.0-4.8) Monocytes # (Auto) 0.9 x10^3/uL (0.0-1.1) Eosinophils # (Auto) 0.3 x10^3/uL (0.0-0.7) Basophils # (Auto) 0.1 x10^3/uL (0.0-0.2) Heparin Anti-Xa Act, Unfractionated 0.52 IU/mL (0.30-0.70) Sodium Level 152 mmol/L (136-145) Potassium Level 3.0 mmol/L (3.5-5.1) Chloride Level 113 mmol/L (98-107) Carbon Dioxide Level 29 mmol/L (21-32) Anion Gap 10 (6-14) Blood Urea Nitrogen 48 mg/dL (8-26) Creatinine 1.5 mg/dL (0.7-1.3) Estimated GFR (Cockcroft-Gault) 46.8 Glucose Level 95 mg/dL (70-99) Calcium Level 8.4 mg/dL (8.5-10.1) Results All relevant outside records, renal labs, imaging studies, telemetry/EKG's were reviewed. JOSE DAVID ANTON MD Aug 09, 2019 12:25
[2019-08-09] MEDS: ANTI-COAG MONITOR BY PHARMACY. MC PRN (13:18)
[2019-08-09] MEDS: FAMOTIDINE 20 MG/2 ML VIAL IVP SCH (22:19)
[2019-08-10] MEDS: METOPROLOL TARTRATE 5 MG/5 ML VIAL. IVP SCH ×4 (00:53→17:18)
[2019-08-10 03:30] VITALS: BP 165/91
[2019-08-10] MEDS: IPRATRPIUM/ALBUTEROL 0.5/2.5MG 3 ML NEBU. NEB SCH ×5 (03:30→19:28)
[2019-08-10 06:51] LABS: BASO # 0.1 x10^3/uL (0.0-0.2); BASO % 1 % (0-3); EOS # 0.4 x10^3/uL (0.0-0.7); EOS % 4 % (0-3); HEMATOCRIT 35.4 % (39.0-53.0); LYMPH # 1.9 x10^3/uL (1.0-4.8); LYMPH % 18 % (24-48); MEAN CORPUSCULAR HEMOGLOBIN 33 pg (25-35); MEAN CORPUSCULAR HGB CONC 34 g/dL (31-37); MEAN CORPUSCULAR VOLUME 96 fL (79-100); MONO # 0.7 x10^3/uL (0.0-1.1); MONO % 7 % (0-9); NEUT # 7.2 x10^3/uL (1.8-7.7); NEUT % 70 % (31-73); PLATELET COUNT 244 x10^3/uL (140-400); RED BLOOD COUNT 3.68 x10^6/uL (4.30-5.70); RED CELL DISTRIBUTION WIDTH 13.8 % (11.5-14.5); WHITE BLOOD COUNT 10.3 x10^3/uL (4.0-11.0)
[2019-08-10 07:00] VITALS: BP 179/87
[2019-08-10 07:09] LABS: ALBUMIN 2.2 g/dL (3.4-5.0); ALBUMIN/GLOBULIN RATIO 0.5 (1.0-1.7); CALCIUM 8.1 mg/dL (8.5-10.1); CREATININE 1.2 mg/dL (0.7-1.3); GFR 60.6; TOTAL BILIRUBIN 1.3 mg/dL (0.2-1.0); TOTAL PROTEIN 6.9 g/dL (6.4-8.2)
[2019-08-10 07:17] LABS: POTASSIUM 2.8 mmol/L (3.5-5.1)
[2019-08-10] MEDS: HEPARIN 25,000UTS/250ML PREMIX 250 ML IV PRN ×2 (07:54→19:39)
[2019-08-10] MEDS: MULTIVITAMINS,THERAPEUTIC 5 ML ORAL LIQUID. PEG SCH (09:00)
[2019-08-10] MEDS: THIAMINE 100 MG TABLET. PEG SCH (09:00)
--- NOTE | 2019-08-10 09:24 | PDOC ---
Provider Note Provider Note Vascular S: Patient awake, he is more verbal but difficulty to understand. Discussed recommendations for toe amputation. O: Awake and alert to person, minimal verbal response BP 178/87, P 63, R 19, T 98.0 Non-labored respirations, cough Right foot warm, 4th toe gangrene, large open blister area on dorsum of foot, clean, dry. 1st and 3rd toe with small area of eschar. A/P: Right 4th toe gangrene Recommend right 4th toe amputation, patient is more awake and verbal, still unable to consent to surgery. Discussed with RN, she will notify us when patient is more awake and able to give consent. Currently patient is NPO, speech evaluation pending. MARGY LEE APRN Aug 10, 2019 09:24
[2019-08-10] MEDS: POTASSIUM CHLORIDE 20MEQ 100 ML IV SCH ×3 (10:00→11:53)
[2019-08-10] MEDS: IV DEXTROSE 5% 1,000 ML IV SCH (10:07)
[2019-08-10] MEDS: MEROPENEM 1 GM in IV NORMAL SALINE 100ML 100 ML IV SCH ×2 (10:07→20:47)
[2019-08-10] MEDS: hydrALAZINE 20 MG/ML VIAL. IVP PRN (10:08)
[2019-08-10] MEDS: MICAFUNGIN 100 MG in IV DEXTROSE 5% 100ML 100 ML IV SCH (10:08)
[2019-08-10] MEDS: HEPARIN for IV BOLUS 10,000 UNIT/10 ML VIAL. IV PRN (10:11)
--- NOTE | 2019-08-10 10:26 | PDOC ---
Infectious Disease Note Subjective Subjective pt is feeling better ROS ROS no n/v/d/sob Vital Sign Vital Signs Vital Signs Date Time Temp Pulse Resp B/P (MAP) Pulse Ox O2 Delivery O2 Flow Rate FiO2 08/10/19 10:08 68 175/83 08/10/19 07:17 94 Room Air 08/10/19 07:00 98.0 19 98.0 08/09/19 12:29 3.0 Physical Exam PHYSICAL EXAM GENERAL: Opens eyes to name, no response to questions or follows commands HEENT: Pupils equal, Oral cavity dry NECK: Supple. LUNGS: Clear, nonlabored HEART: S1, S2, irregular rhythm. ABDOMEN: Obese, soft, mildly distended : Valladares in place, 1 + scrotal swelling, erythema, EXTREMITIES: Ischemic changes right foot with 4 th toe gangrene toe. Left foot pink. Rooke boots bilaterally SKIN: Wrm to touch. No generalized rash. RIJ and R HD cath (08/02) without signs of complications . Labs Lab Laboratory Tests Test 08/10/19 06:30 08/10/19 07:55 White Blood Count 10.3 x10^3/uL (4.0-11.0) Red Blood Count 3.68 x10^6/uL (4.30-5.70) Hemoglobin 12.0 g/dL (13.0-17.5) Hematocrit 35.4 % (39.0-53.0) Mean Corpuscular Volume 96 fL (79-100) Mean Corpuscular Hemoglobin 33 pg (25-35) Mean Corpuscular Hemoglobin Concent 34 g/dL (31-37) Red Cell Distribution Width 13.8 % (11.5-14.5) Platelet Count 244 x10^3/uL (140-400) Neutrophils (%) (Auto) 70 % (31-73) Lymphocytes (%) (Auto) 18 % (24-48) Monocytes (%) (Auto) 7 % (0-9) Eosinophils (%) (Auto) 4 % (0-3) Basophils (%) (Auto) 1 % (0-3) Neutrophils # (Auto) 7.2 x10^3/uL (1.8-7.7) Lymphocytes # (Auto) 1.9 x10^3/uL (1.0-4.8) Monocytes # (Auto) 0.7 x10^3/uL (0.0-1.1) Eosinophils # (Auto) 0.4 x10^3/uL (0.0-0.7) Basophils # (Auto) 0.1 x10^3/uL (0.0-0.2) Sodium Level 151 mmol/L (136-145) Potassium Level 2.8 mmol/L (3.5-5.1) Chloride Level 113 mmol/L (98-107) Carbon Dioxide Level 28 mmol/L (21-32) Anion Gap 10 (6-14) Blood Urea Nitrogen 41 mg/dL (8-26) Creatinine 1.2 mg/dL (0.7-1.3) Estimated GFR (Cockcroft-Gault) 60.6 BUN/Creatinine Ratio 34 (6-20) Glucose Level 90 mg/dL (70-99) Calcium Level 8.1 mg/dL (8.5-10.1) Total Bilirubin 1.3 mg/dL (0.2-1.0) Aspartate Amino Transf (AST/SGOT) 143 U/L (15-37) Alanine Aminotransferase (ALT/SGPT) 59 U/L (16-63) Alkaline Phosphatase 79 U/L (46-116) Total Protein 6.9 g/dL (6.4-8.2) Albumin 2.2 g/dL (3.4-5.0) Albumin/Globulin Ratio 0.5 (1.0-1.7) Heparin Anti-Xa Act, Unfractionated < 0.10 IU/mL (0.30-0.70) Micro Microbiology 08/02/19 Blood Culture - Final, Complete NO GROWTH AFTER 5 DAYS 07/31/19 - Final, Complete 07/31/19 - Final, Complete 07/31/19 - Final, Complete 07/31/19 Gram Stain Evaluation - Final, Complete 07/31/19 Sputum Culture - Final, Complete 07/31/19 Sputum Result 1 - Final, Complete 07/30/19 Urine Culture - Final, Complete 07/30/19 Urine Culture Result 1 (SONIA) - Final, Complete Objective Assessment Fever Septic shock procalcitonin 25.26 - improved Strep pneumo sepsis (4 of 4 bottles), 07/30 ? source.- ?lung with strep pneumo ? foot -Repeat BC and 08/01 neg to date. TTE (07/31) no evidence veg Leukocytosis - improved Influenza A, respiratory tract infection. Treated Acute hypoxic respiratory failure with pneumonia, status post intubation. 07/31. strep pneumo & GPR - no identified on gram stain/mold. Severe peripheral vascular disease, right foot ischemia/gangrene Encephalopathy. Lactic acidosis. Acute kidney injury - improving Hyperbilirubinemia. LFT elevation. Atrial fibrillation with rapid ventricular response, on amiodarone. Homelessness. Groin dermatitis. Tinea Hypernatremia Plan Plan of Care Cont Merrem, and micafungin Off Daptomycin and Zyvox Follow up labs and cultures Maintain aspiration precautions Surgery on toe- not performed as unable to get consent D/w micro, work-up for mold ID underway Critically ill D/w nursing ROBERTO CHAWLA MD Aug 10, 2019 10:26
[2019-08-10 10:59] VITALS: BP 175/80
--- NOTE | 2019-08-10 11:00 | NUR ---
Pt had one episode of thick bloody sputum, approx. the size of a ping pong ball. Oral care performed, and Dr. Vigil and Dr. Alejandre notified. No further orders received at this time. Will continue to monitor.
--- NOTE | 2019-08-10 12:51 | PDOC ---
PULMONARY PROGRESS NOTES Subjective extubated on 08/07/2019 , ethel Alert Vitals Vital Signs Date Time Temp Pulse Resp B/P (MAP) Pulse Ox O2 Delivery O2 Flow Rate FiO2 08/10/19 12:21 85 172/78 08/10/19 11:19 94 Room Air 08/10/19 10:59 98.6 19 98.6 08/10/19 08:00 2.0 General: Alert Lungs: Clear Cardiovascular: S1, S2 Abdomen: Soft Extremities: Other (PVD) Skin: Warm Labs Laboratory Tests Test 08/09/19 05:50 08/10/19 06:30 08/10/19 07:55 White Blood Count 10.0 x10^3/uL (4.0-11.0) 10.3 x10^3/uL (4.0-11.0) Red Blood Count 3.79 x10^6/uL (4.30-5.70) 3.68 x10^6/uL (4.30-5.70) Hemoglobin 12.1 g/dL (13.0-17.5) 12.0 g/dL (13.0-17.5) Hematocrit 36.1 % (39.0-53.0) 35.4 % (39.0-53.0) Mean Corpuscular Volume 95 fL (79-100) 96 fL (79-100) Mean Corpuscular Hemoglobin 32 pg (25-35) 33 pg (25-35) Mean Corpuscular Hemoglobin Concent 34 g/dL (31-37) 34 g/dL (31-37) Red Cell Distribution Width 13.6 % (11.5-14.5) 13.8 % (11.5-14.5) Platelet Count 270 x10^3/uL (140-400) 244 x10^3/uL (140-400) Neutrophils (%) (Auto) 66 % (31-73) 70 % (31-73) Lymphocytes (%) (Auto) 21 % (24-48) 18 % (24-48) Monocytes (%) (Auto) 9 % (0-9) 7 % (0-9) Eosinophils (%) (Auto) 3 % (0-3) 4 % (0-3) Basophils (%) (Auto) 1 % (0-3) 1 % (0-3) Neutrophils # (Auto) 6.6 x10^3/uL (1.8-7.7) 7.2 x10^3/uL (1.8-7.7) Lymphocytes # (Auto) 2.1 x10^3/uL (1.0-4.8) 1.9 x10^3/uL (1.0-4.8) Monocytes # (Auto) 0.9 x10^3/uL (0.0-1.1) 0.7 x10^3/uL (0.0-1.1) Eosinophils # (Auto) 0.3 x10^3/uL (0.0-0.7) 0.4 x10^3/uL (0.0-0.7) Basophils # (Auto) 0.1 x10^3/uL (0.0-0.2) 0.1 x10^3/uL (0.0-0.2) Heparin Anti-Xa Act, Unfractionated 0.52 IU/mL (0.30-0.70) < 0.10 IU/mL (0.30-0.70) Sodium Level 152 mmol/L (136-145) 151 mmol/L (136-145) Potassium Level 3.0 mmol/L (3.5-5.1) 2.8 mmol/L (3.5-5.1) Chloride Level 113 mmol/L (98-107) 113 mmol/L (98-107) Carbon Dioxide Level 29 mmol/L (21-32) 28 mmol/L (21-32) Anion Gap 10 (6-14) 10 (6-14) Blood Urea Nitrogen 48 mg/dL (8-26) 41 mg/dL (8-26) Creatinine 1.5 mg/dL (0.7-1.3) 1.2 mg/dL (0.7-1.3) Estimated GFR (Cockcroft-Gault) 46.8 60.6 Glucose Level 95 mg/dL (70-99) 90 mg/dL (70-99) Calcium Level 8.4 mg/dL (8.5-10.1) 8.1 mg/dL (8.5-10.1) BUN/Creatinine Ratio 34 (6-20) Total Bilirubin 1.3 mg/dL (0.2-1.0) Aspartate Amino Transf (AST/SGOT) 143 U/L (15-37) Alanine Aminotransferase (ALT/SGPT) 59 U/L (16-63) Alkaline Phosphatase 79 U/L (46-116) Total Protein 6.9 g/dL (6.4-8.2) Albumin 2.2 g/dL (3.4-5.0) Albumin/Globulin Ratio 0.5 (1.0-1.7) Laboratory Tests Test 08/10/19 06:30 08/10/19 07:55 White Blood Count 10.3 x10^3/uL (4.0-11.0) Red Blood Count 3.68 x10^6/uL (4.30-5.70) Hemoglobin 12.0 g/dL (13.0-17.5) Hematocrit 35.4 % (39.0-53.0) Mean Corpuscular Volume 96 fL (79-100) Mean Corpuscular Hemoglobin 33 pg (25-35) Mean Corpuscular Hemoglobin Concent 34 g/dL (31-37) Red Cell Distribution Width 13.8 % (11.5-14.5) Platelet Count 244 x10^3/uL (140-400) Neutrophils (%) (Auto) 70 % (31-73) Lymphocytes (%) (Auto) 18 % (24-48) Monocytes (%) (Auto) 7 % (0-9) Eosinophils (%) (Auto) 4 % (0-3) Basophils (%) (Auto) 1 % (0-3) Neutrophils # (Auto) 7.2 x10^3/uL (1.8-7.7) Lymphocytes # (Auto) 1.9 x10^3/uL (1.0-4.8) Monocytes # (Auto) 0.7 x10^3/uL (0.0-1.1) Eosinophils # (Auto) 0.4 x10^3/uL (0.0-0.7) Basophils # (Auto) 0.1 x10^3/uL (0.0-0.2) Sodium Level 151 mmol/L (136-145) Potassium Level 2.8 mmol/L (3.5-5.1) Chloride Level 113 mmol/L (98-107) Carbon Dioxide Level 28 mmol/L (21-32) Anion Gap 10 (6-14) Blood Urea Nitrogen 41 mg/dL (8-26) Creatinine 1.2 mg/dL (0.7-1.3) Estimated GFR (Cockcroft-Gault) 60.6 BUN/Creatinine Ratio 34 (6-20) Glucose Level 90 mg/dL (70-99) Calcium Level 8.1 mg/dL (8.5-10.1) Total Bilirubin 1.3 mg/dL (0.2-1.0) Aspartate Amino Transf (AST/SGOT) 143 U/L (15-37) Alanine Aminotransferase (ALT/SGPT) 59 U/L (16-63) Alkaline Phosphatase 79 U/L (46-116) Total Protein 6.9 g/dL (6.4-8.2) Albumin 2.2 g/dL (3.4-5.0) Albumin/Globulin Ratio 0.5 (1.0-1.7) Heparin Anti-Xa Act, Unfractionated < 0.10 IU/mL (0.30-0.70) Medications Active Scripts Medications Dose Route/Sig Max Daily Dose Days Date Category Proair Hfa (Albuterol Sulfate) 8.5 Gm Hfa.aer.ad 2 Puff IH PRN Q4-6HRS PRN 21 07/25/19 Rx Tessalon Perle (Benzonatate) 100 Mg Capsule 1 Cap PO TID 07/25/19 Rx Prednisone 50 Mg Tablet 1 Tab PO DAILY 07/25/19 Rx Cyclobenzaprine Hcl 5 Mg Tablet 1 Tab PO TID 03/21/17 Rx Ibuprofen 800 Mg Tablet 800 Mg PO Q6-8HRS 03/21/17 Rx Zofran Odt (Ondansetron) 4 Mg Tab.rapdis 1 Tab SL Q8HRS 01/07/17 Rx Ultram (Tramadol Hcl) 50 Mg Tablet 1 Tab PO Q6HRS 01/29/16 Rx Comments CXR 08/06 CHF/ EFFUSION Impression . IMPRESSION: 1. Acute hypoxemic respiratory failure. MULTIFACTORIAL 2. Sepsis. 3. Pneumonia, suspect gram-negative, possibly gram-positive. 4. Influenza A. 5. New onset atrial fibrillation. 6. Peripheral vascular disease with possible peripheral emboli. 7. Metabolic acidosis. 8. Acute renal failure. 9. Severe protein malnutrition, present upon admission. 10. Elevated total bilirubin. 11. Abnormal cxr/ CHF Plan . extubated on 08/06, remains on N/C, cont. supplemental oxygent o keep sats above 92% Nebs Follow nephrology recs-- monitor sodium Antibiotics per ID cont. IV heparin and follow vascular surgery recs -- awaiting consent for surg oscar CXR reviewed D/W INEZ PEÑA MD Aug 10, 2019 12:51
--- NOTE | 2019-08-10 13:01 | PDOC ---
Renal-Progress Notes Subjective Notes Notes NO NEW COMPLAINTS History of Present Illness Hx of present illness STABLE Vitals Vitals Vital Signs Date Time Temp Pulse Resp B/P (MAP) Pulse Ox O2 Delivery O2 Flow Rate FiO2 08/10/19 12:21 85 172/78 08/10/19 11:19 94 Room Air 08/10/19 10:59 98.6 19 98.6 08/10/19 08:00 2.0 Weight Weight [ ] I.O. Intake and Output Intake and Output 08/10/19 07:00 Intake Total 1650 ml Output Total 1427 ml Balance 223 ml Intake Oral 0 ml IV Total 1200 ml Blood Product IV Normal Saline Flush 450 ml Output Urine Total 1425 ml Stool Total 2 ml Labs Labs Laboratory Tests Test 08/10/19 06:30 08/10/19 07:55 White Blood Count 10.3 x10^3/uL (4.0-11.0) Red Blood Count 3.68 x10^6/uL (4.30-5.70) Hemoglobin 12.0 g/dL (13.0-17.5) Hematocrit 35.4 % (39.0-53.0) Mean Corpuscular Volume 96 fL (79-100) Mean Corpuscular Hemoglobin 33 pg (25-35) Mean Corpuscular Hemoglobin Concent 34 g/dL (31-37) Red Cell Distribution Width 13.8 % (11.5-14.5) Platelet Count 244 x10^3/uL (140-400) Neutrophils (%) (Auto) 70 % (31-73) Lymphocytes (%) (Auto) 18 % (24-48) Monocytes (%) (Auto) 7 % (0-9) Eosinophils (%) (Auto) 4 % (0-3) Basophils (%) (Auto) 1 % (0-3) Neutrophils # (Auto) 7.2 x10^3/uL (1.8-7.7) Lymphocytes # (Auto) 1.9 x10^3/uL (1.0-4.8) Monocytes # (Auto) 0.7 x10^3/uL (0.0-1.1) Eosinophils # (Auto) 0.4 x10^3/uL (0.0-0.7) Basophils # (Auto) 0.1 x10^3/uL (0.0-0.2) Sodium Level 151 mmol/L (136-145) Potassium Level 2.8 mmol/L (3.5-5.1) Chloride Level 113 mmol/L (98-107) Carbon Dioxide Level 28 mmol/L (21-32) Anion Gap 10 (6-14) Blood Urea Nitrogen 41 mg/dL (8-26) Creatinine 1.2 mg/dL (0.7-1.3) Estimated GFR (Cockcroft-Gault) 60.6 BUN/Creatinine Ratio 34 (6-20) Glucose Level 90 mg/dL (70-99) Calcium Level 8.1 mg/dL (8.5-10.1) Total Bilirubin 1.3 mg/dL (0.2-1.0) Aspartate Amino Transf (AST/SGOT) 143 U/L (15-37) Alanine Aminotransferase (ALT/SGPT) 59 U/L (16-63) Alkaline Phosphatase 79 U/L (46-116) Total Protein 6.9 g/dL (6.4-8.2) Albumin 2.2 g/dL (3.4-5.0) Albumin/Globulin Ratio 0.5 (1.0-1.7) Heparin Anti-Xa Act, Unfractionated < 0.10 IU/mL (0.30-0.70) Micro Micro Microbiology 08/02/19 Blood Culture - Final, Complete NO GROWTH AFTER 5 DAYS 07/31/19 - Final, Complete 07/31/19 - Final, Complete 07/31/19 - Final, Complete 07/31/19 Gram Stain Evaluation - Final, Complete 07/31/19 Sputum Culture - Final, Complete 07/31/19 Sputum Result 1 - Final, Complete 07/30/19 Urine Culture - Final, Complete 07/30/19 Urine Culture Result 1 (SONIA) - Final, Complete Review of Systems Constitutional: yes: weakness Ears/Nose/Throat: Yes: no symptom reported Eyes: Yes: no symptom reported Cardiovascular: Yes no symptom reported Gastrointestional: Yes: no symptom reported Genitourinary: Yes: no symptom reported Musculoskeletal: Yes: no symptom reported Skin: Yes no symptom reported Psychiatric/Neurological: Yes: no symptom reported Endocrine: Yes: no symptom reported Physical Exam General Appearance: no apparent distress Skin: warm Respiratory: decreased breath sounds Heart: S1S2 Abdomen: soft, bowel sounds present Extremities: pulses present Neurology: alert, oriented, other (off sedation; not awake ) Assessment Assessment IMP HYPOKALEMIA MILD HYPERNATREMIA RESOLVING SONIA-LAST HD TWICE 3/2 AND 3/4 PNEUMONIA-SEPSIS INFLUENZA A AFIB RVR PAD WITH R 4TH TOE GANGRENE PLAN D5W REPLACE K ANTIBIOTICS HOLD OFF HD FOR NOW IF STILL STABLE TOMORROW WILL HAVE HIS TEMP HD CATHETER REMOVED. WILL FOLLOW JOHN PINON MD Aug 10, 2019 13:01
[2019-08-10 14:45] VITALS: BP 173/83
--- NOTE | 2019-08-10 14:48 | NUR ---
SS following up with discharge planning. Pt is currently on room air and confused. SS attempted to contact pt's sister, Mary Rm, , and left voicemail requesting return call to discuss discharge planning and to see if pt has DPOA. SS awaiting return call at this time. Pt has [facility] Medicaid and would qualify for LTC placement but needs DPOA to complete CARE ASSESSMENT and to make decisions in regards to placement. SS will continue to follow for discharge planning.
--- NOTE | 2019-08-10 17:35 | PDOC ---
PROGRESS NOTES Chief Complaint Chief Complaint Assessment/Plan Assessment/Plan impression 1. ACUTE HYPOXIC RESPIRATORY FAILURE 2. INFLUENZA A 3. Sepsis 4, PNA (pneumonia) 5. Altered mental status 6. ischemic right 4th toe 7. SONIA 8. a fib rvr 9. severe sepsis 10. homeless, self neglect due to lack of funds 11. 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 VENT SUPPORT D/C 08/06 CONSULT NEUROLOGY dvt prophylaxis vascular surgery FOLLOWING Nephrology consult cardiology consult cardizem drip IV HYDRALAZINE 10 MG Q 4 HRS PRN BP SUPPORT Let tissues demarcate and possibly areas heal. . Will continue heparin drip and Rooke boots. Family refuses to give consent for toe amputation 08/06 this can probably be readdressed now that the patient has improved. HyperNatremia- D5W IV , GUARDED PROGNOSIS extubated 08/07/19 AM Interval extubation. 08/08 NOT ALERT ENOUGH TO SIGN CONSENT Duration of Treatment Expected * 2 weeks Discharge Recommendations * [facility] History of Present Illness History of Present Illness Patient continues to be stable, the patient has had a quite prolonged hospital stay. Severely deconditioned in my opinion, will need placement Vitals Vitals Vital Signs Date Time Temp Pulse Resp B/P (MAP) Pulse Ox O2 Delivery O2 Flow Rate FiO2 08/10/19 16:20 93 Room Air 08/10/19 14:45 98.4 78 19 173/83 (113) 98.4 08/10/19 08:00 2.0 Physical Exam Physical Exam GENERAL: Opens eyes to name, no response to questions or follows commands HEENT: Pupils equal, Oral cavity dry NECK: Supple. LUNGS: Clear, nonlabored HEART: S1, S2, irregular rhythm. ABDOMEN: Obese, soft, mildly distended : Valladares in place, 1 + scrotal swelling, erythema, EXTREMITIES: Ischemic changes right foot with 4 th toe gangrene toe. Left foot pink. Rooke boots bilaterally SKIN: Wrm to touch. No generalized rash. RIJ and R HD cath (08/02) without signs of complications . General: Alert, Oriented X3, Cooperative, No acute distress, Other (intubated) Heart: Regular rate, Normal S1, Other (irregular rhythm) Lungs: Clear Abdomen: Normal bowel sounds, Soft, No tenderness Extremities: No clubbing, No cyanosis, Other (ischemic right 4th toe) Skin: Other (right 4th toe lesion) Labs LABS Laboratory Tests Test 08/10/19 06:30 08/10/19 07:55 08/10/19 15:40 White Blood Count 10.3 x10^3/uL (4.0-11.0) Red Blood Count 3.68 x10^6/uL (4.30-5.70) Hemoglobin 12.0 g/dL (13.0-17.5) Hematocrit 35.4 % (39.0-53.0) Mean Corpuscular Volume 96 fL (79-100) Mean Corpuscular Hemoglobin 33 pg (25-35) Mean Corpuscular Hemoglobin Concent 34 g/dL (31-37) Red Cell Distribution Width 13.8 % (11.5-14.5) Platelet Count 244 x10^3/uL (140-400) Neutrophils (%) (Auto) 70 % (31-73) Lymphocytes (%) (Auto) 18 % (24-48) Monocytes (%) (Auto) 7 % (0-9) Eosinophils (%) (Auto) 4 % (0-3) Basophils (%) (Auto) 1 % (0-3) Neutrophils # (Auto) 7.2 x10^3/uL (1.8-7.7) Lymphocytes # (Auto) 1.9 x10^3/uL (1.0-4.8) Monocytes # (Auto) 0.7 x10^3/uL (0.0-1.1) Eosinophils # (Auto) 0.4 x10^3/uL (0.0-0.7) Basophils # (Auto) 0.1 x10^3/uL (0.0-0.2) Sodium Level 151 mmol/L (136-145) Potassium Level 2.8 mmol/L (3.5-5.1) Chloride Level 113 mmol/L (98-107) Carbon Dioxide Level 28 mmol/L (21-32) Anion Gap 10 (6-14) Blood Urea Nitrogen 41 mg/dL (8-26) Creatinine 1.2 mg/dL (0.7-1.3) Estimated GFR (Cockcroft-Gault) 60.6 BUN/Creatinine Ratio 34 (6-20) Glucose Level 90 mg/dL (70-99) Calcium Level 8.1 mg/dL (8.5-10.1) Total Bilirubin 1.3 mg/dL (0.2-1.0) Aspartate Amino Transf (AST/SGOT) 143 U/L (15-37) Alanine Aminotransferase (ALT/SGPT) 59 U/L (16-63) Alkaline Phosphatase 79 U/L (46-116) Total Protein 6.9 g/dL (6.4-8.2) Albumin 2.2 g/dL (3.4-5.0) Albumin/Globulin Ratio 0.5 (1.0-1.7) Heparin Anti-Xa Act, Unfractionated < 0.10 IU/mL (0.30-0.70) 0.77 IU/mL (0.30-0.70) Review of Systems Review of Systems Review of systems pertinent as per HPI otherwise 14 point review of system is negative Assessment and Plan Assessmemt and Plan Problems Medical Problems: (1) Altered mental status Status: Acute Comment Review of Relevant I have reviewed the following items hay (where applicable) has been applied. Labs Laboratory Tests Test 08/09/19 05:50 08/10/19 06:30 08/10/19 07:55 08/10/19 15:40 White Blood Count 10.0 x10^3/uL (4.0-11.0) 10.3 x10^3/uL (4.0-11.0) Red Blood Count 3.79 x10^6/uL (4.30-5.70) 3.68 x10^6/uL (4.30-5.70) Hemoglobin 12.1 g/dL (13.0-17.5) 12.0 g/dL (13.0-17.5) Hematocrit 36.1 % (39.0-53.0) 35.4 % (39.0-53.0) Mean Corpuscular Volume 95 fL (79-100) 96 fL (79-100) Mean Corpuscular Hemoglobin 32 pg (25-35) 33 pg (25-35) Mean Corpuscular Hemoglobin Concent 34 g/dL (31-37) 34 g/dL (31-37) Red Cell Distribution Width 13.6 % (11.5-14.5) 13.8 % (11.5-14.5) Platelet Count 270 x10^3/uL (140-400) 244 x10^3/uL (140-400) Neutrophils (%) (Auto) 66 % (31-73) 70 % (31-73) Lymphocytes (%) (Auto) 21 % (24-48) 18 % (24-48) Monocytes (%) (Auto) 9 % (0-9) 7 % (0-9) Eosinophils (%) (Auto) 3 % (0-3) 4 % (0-3) Basophils (%) (Auto) 1 % (0-3) 1 % (0-3) Neutrophils # (Auto) 6.6 x10^3/uL (1.8-7.7) 7.2 x10^3/uL (1.8-7.7) Lymphocytes # (Auto) 2.1 x10^3/uL (1.0-4.8) 1.9 x10^3/uL (1.0-4.8) Monocytes # (Auto) 0.9 x10^3/uL (0.0-1.1) 0.7 x10^3/uL (0.0-1.1) Eosinophils # (Auto) 0.3 x10^3/uL (0.0-0.7) 0.4 x10^3/uL (0.0-0.7) Basophils # (Auto) 0.1 x10^3/uL (0.0-0.2) 0.1 x10^3/uL (0.0-0.2) Heparin Anti-Xa Act, Unfractionated 0.52 IU/mL (0.30-0.70) < 0.10 IU/mL (0.30-0.70) 0.77 IU/mL (0.30-0.70) Sodium Level 152 mmol/L (136-145) 151 mmol/L (136-145) Potassium Level 3.0 mmol/L (3.5-5.1) 2.8 mmol/L (3.5-5.1) Chloride Level 113 mmol/L (98-107) 113 mmol/L (98-107) Carbon Dioxide Level 29 mmol/L (21-32) 28 mmol/L (21-32) Anion Gap 10 (6-14) 10 (6-14) Blood Urea Nitrogen 48 mg/dL (8-26) 41 mg/dL (8-26) Creatinine 1.5 mg/dL (0.7-1.3) 1.2 mg/dL (0.7-1.3) Estimated GFR (Cockcroft-Gault) 46.8 60.6 Glucose Level 95 mg/dL (70-99) 90 mg/dL (70-99) Calcium Level 8.4 mg/dL (8.5-10.1) 8.1 mg/dL (8.5-10.1) BUN/Creatinine Ratio 34 (6-20) Total Bilirubin 1.3 mg/dL (0.2-1.0) Aspartate Amino Transf (AST/SGOT) 143 U/L (15-37) Alanine Aminotransferase (ALT/SGPT) 59 U/L (16-63) Alkaline Phosphatase 79 U/L (46-116) Total Protein 6.9 g/dL (6.4-8.2) Albumin 2.2 g/dL (3.4-5.0) Albumin/Globulin Ratio 0.5 (1.0-1.7) Laboratory Tests Test 08/10/19 06:30 08/10/19 07:55 08/10/19 15:40 White Blood Count 10.3 x10^3/uL (4.0-11.0) Red Blood Count 3.68 x10^6/uL (4.30-5.70) Hemoglobin 12.0 g/dL (13.0-17.5) Hematocrit 35.4 % (39.0-53.0) Mean Corpuscular Volume 96 fL (79-100) Mean Corpuscular Hemoglobin 33 pg (25-35) Mean Corpuscular Hemoglobin Concent 34 g/dL (31-37) Red Cell Distribution Width 13.8 % (11.5-14.5) Platelet Count 244 x10^3/uL (140-400) Neutrophils (%) (Auto) 70 % (31-73) Lymphocytes (%) (Auto) 18 % (24-48) Monocytes (%) (Auto) 7 % (0-9) Eosinophils (%) (Auto) 4 % (0-3) Basophils (%) (Auto) 1 % (0-3) Neutrophils # (Auto) 7.2 x10^3/uL (1.8-7.7) Lymphocytes # (Auto) 1.9 x10^3/uL (1.0-4.8) Monocytes # (Auto) 0.7 x10^3/uL (0.0-1.1) Eosinophils # (Auto) 0.4 x10^3/uL (0.0-0.7) Basophils # (Auto) 0.1 x10^3/uL (0.0-0.2) Sodium Level 151 mmol/L (136-145) Potassium Level 2.8 mmol/L (3.5-5.1) Chloride Level 113 mmol/L (98-107) Carbon Dioxide Level 28 mmol/L (21-32) Anion Gap 10 (6-14) Blood Urea Nitrogen 41 mg/dL (8-26) Creatinine 1.2 mg/dL (0.7-1.3) Estimated GFR (Cockcroft-Gault) 60.6 BUN/Creatinine Ratio 34 (6-20) Glucose Level 90 mg/dL (70-99) Calcium Level 8.1 mg/dL (8.5-10.1) Total Bilirubin 1.3 mg/dL (0.2-1.0) Aspartate Amino Transf (AST/SGOT) 143 U/L (15-37) Alanine Aminotransferase (ALT/SGPT) 59 U/L (16-63) Alkaline Phosphatase 79 U/L (46-116) Total Protein 6.9 g/dL (6.4-8.2) Albumin 2.2 g/dL (3.4-5.0) Albumin/Globulin Ratio 0.5 (1.0-1.7) Heparin Anti-Xa Act, Unfractionated < 0.10 IU/mL (0.30-0.70) 0.77 IU/mL (0.30-0.70) Microbiology 08/02/19 Blood Culture - Final, Complete NO GROWTH AFTER 5 DAYS 07/31/19 - Final, Complete 07/31/19 - Final, Complete 07/31/19 - Final, Complete 07/31/19 Gram Stain Evaluation - Final, Complete 07/31/19 Sputum Culture - Final, Complete 07/31/19 Sputum Result 1 - Final, Complete 07/30/19 Urine Culture - Final, Complete 07/30/19 Urine Culture Result 1 (SONIA) - Final, Complete Medications Current Medications Albuterol/ Ipratropium (Duoneb) 3 ml 1X ONCE NEB Last administered on 07/30/19at 18:00; Start 07/30/19 at 18:00; Stop 07/30/19 at 18:01; Status DC Albuterol Sulfate (Ventolin Neb Soln) 10 mg 1X ONCE CONT NEB Last administered on 07/30/19at 18:00; Start 07/30/19 at 18:00; Stop 07/30/19 at 18:01; Status DC Morphine Sulfate (Morphine Sulfate) 2 mg PRN Q15MIN PRN IV/SQ PAIN GREATER THAN 3/10 Last administered on 07/30/19at 18:08; Start 07/30/19 at 18:00; Stop 07/31/19 at 00:10; Status DC Diltiazem HCl (Cardizem Iv Push) 10 mg 1X ONCE IVP Last administered on 07/30/19at 18:01; Start 07/30/19 at 18:00; Stop 07/30/19 at 18:01; Status DC Diltiazem HCl 125 mg/Sodium Chloride 125 ml @ 5 mls/hr 1X ONCE IV Last administered on 07/30/19at 18:36; Start 07/30/19 at 18:00; Stop 07/31/19 at 18:59; Status DC Lorazepam (Ativan Inj) 2 mg 1X ONCE IVP Last administered on 07/30/19at 18:35; Start 07/30/19 at 18:15; Stop 07/30/19 at 18:16; Status DC Lorazepam (Ativan Inj) 2 mg STK-MED ONCE .ROUTE ; Start 07/30/19 at 18:14; Stop 07/30/19 at 18:14; Status DC Digoxin (Lanoxin) 250 mcg 1X ONCE IV Last administered on 07/30/19at 18:53; Start 07/30/19 at 18:45; Stop 07/30/19 at 18:46; Status DC Amiodarone HCl 150 mg/Dextrose 103 ml @ 618 mls/hr 1X ONCE IV Last administe red on 07/30/19at 20:07; Start 07/30/19 at 18:45; Stop 07/30/19 at 18:54; Status DC Amiodarone HCl 450 mg/Dextrose 259 ml @ 0 mls/hr CONT PRN IV SEE I/O RECORD Last administered on 07/30/19at 20:21; Start 07/30/19 at 18:45 Sodium Chloride 1,000 ml @ 1,000 mls/hr 1X ONCE IV Last administered on 07/30/19at 18:20; Start 07/30/19 at 18:45; Stop 07/31/19 at 02:15; Status DC Sodium Chloride 2,130 ml @ 2,130 mls/hr Q1H IV Last administered on 07/30/19at 19:02; Start 07/30/19 at 18:53; Stop 07/31/19 at 02:15; Status DC Piperacillin Sod/ Tazobactam Sod 4.5 gm/Sodium Chloride 100 ml @ 200 mls/hr 1X ONCE IV Last administered on 07/30/19at 19:06; Start 07/30/19 at 19:00; Stop 07/31/19 at 08:04; Status DC Vancomycin HCl (Vanco Per Pharmacy) 1 each 1X ONCE MC ; Start 07/30/19 at 19:00; Stop 07/31/19 at 08:04; Status DC Norepinephrine Bitartrate 8 mg/ Dextrose 258 ml @ 0 mls/hr CONT PRN IV PER PROTOCOL; Start 07/30/19 at 19:00; Stop 07/31/19 at 08:04; Status DC Potassium Chloride/Water 100 ml @ 100 mls/hr Q1H IV Last administered on 07/30/19at 21:31; Start 07/30/19 at 19:30; Stop 07/30/19 at 21:29; Status DC Vancomycin HCl 2 gm/Sodium Chloride 500 ml @ 250 mls/hr 1X ONCE IV Last administered on 07/30/19at 20:15; Start 07/30/19 at 19:15; Stop 07/30/19 at 21:14 ; Status DC Fentanyl Citrate (Fentanyl 2ml Vial) 25 mcg PRN Q1HR PRN IV SEE COMMENTS; Start 07/30/19 at 19:15; Stop 07/31/19 at 00:11; Status DC Fentanyl Citrate (Fentanyl 2ml Vial) 50 mcg PRN Q1HR PRN IV SEE COMMENTS; Start 07/30/19 at 19:15; Stop 07/31/19 at 00:11; Status DC Chlorhexidine Gluconate (Peridex) 15 ml BID MM Last administered on 08/06/19at 21:19; Start 07/30/19 at 21:00; Stop 08/07/19 at 11:18; Status DC Morphine Sulfate (Morphine Sulfate) 2 mg PRN Q1HR PRN IV SEE COMMENTS.; Start 07/30/19 at 19:15; Stop 07/31/19 at 00:11; Status DC Morphine Sulfate (Morphine Sulfate) 4 mg PRN Q1HR PRN IV SEE COMMENTS.; Start 07/30/19 at 19:15; Stop 07/31/19 at 00:11; Status DC Midazolam HCl 50 mg/Sodium Chloride 50 ml @ 0 mls/hr CONT PRN IV SEE PROTOCOL Last administered on 07/30/19at 20:40; Start 07/30/19 at 19:15; Stop 07/31/19 at 00:10; Status DC Acetaminophen (Tylenol Supp) 650 mg 1X ONCE CA Last administered on 07/30/19at 20:49; Start 07/30/19 at 20:15; Stop 07/30/19 at 20:16; Status DC Ondansetron HCl (Zofran) 4 mg PRN Q8HRS PRN IV NAUSEA/VOMITING; Start 07/30/19 at 20:30; Stop 07/31/19 at 20:29; Status DC Acetaminophen (Tylenol) 650 mg PRN Q4HRS PRN PO FEVER Last administered on 07/31/19at 12:49; Start 07/30/19 at 20:30; Stop 07/31/19 at 20:29; Status DC Heparin Sodium/ Dextrose 250 ml @ 0 mls/hr CONT PRN IV PER PROTOCOL Last administered on 08/10/19at 07:54; Start 07/30/19 at 20:45 Heparin Sodium (Porcine) (Heparin Sodium) 2,200 unit PRN Q6HRS PRN IV FOR UFH LEVEL LESS THAN 0.2 Last administered on 08/10/19at 10:11; Start 07/30/19 at 20:45 Info (Anti-Coagulation Monitoring By Pharmacy) 1 each PRN DAILY PRN MC SEE COM MENTS Last administered on 08/09/19at 13:18; Start 07/30/19 at 21:00 Etomidate (Amidate) 20 mg STK-MED ONCE IV ; Start 07/30/19 at 21:15; Stop 07/30/19 at 21:16; Status DC Rocuronium [place] (Zemuron) 50 mg STK-MED ONCE .ROUTE ; Start 07/30/19 at 21:16; Stop 07/30/19 at 21:16; Status DC Diltiazem HCl 125 mg/Sodium Chloride 125 ml @ 5 mls/hr CONT PRN IV SEE I/O RECORD; Start 07/30/19 at 22:30; Stop 07/31/19 at 06:01; Status DC Sodium Bicarbonate 100 meq/Dextrose 1,100 ml @ 75 mls/hr 1X ONCE IV Last admi nistered on 07/31/19at 01:54; Start 07/30/19 at 23:00; Stop 07/31/19 at 13:39; Status DC Etomidate (Amidate) 20 mg 1X ONCE IV Last administered on 07/30/19at 19:27; Start 07/30/19 at 23:45; Stop 07/30/19 at 23:46; Status DC Rocuronium [place] (Zemuron) 50 mg 1X ONCE IV Last administered on 07/30/19at 19:28; Start 07/30/19 at 23:45; Stop 07/30/19 at 23:46; Status DC Rocuronium [place] (Zemuron) 50 mg 1X ONCE IV Last administered on 07/30/19at 19:28; Start 07/30/19 at 23:45; Stop 07/30/19 at 23:46; Status DC Digoxin (Lanoxin) 250 mcg 1X ONCE IV Last administered on 07/31/19at 00:12; Start 07/31/19 at 00:30; Stop 07/31/19 at 00:31; Status DC Heparin Sodium/ Dextrose 250 ml @ 0 mls/hr CONT PRN IV SEE I/O RECORD; Start 07/31/19 at 00:00; Status UNV Fentanyl Citrate 30 ml @ 0 mls/hr CONT PRN IV SEE PROTOCOL Last administered on 08/06/19at 06:48; Start 07/31/19 at 00:15; Stop 08/07/19 at 11:18; Status DC Midazolam HCl 50 mg/Sodium Chloride 50 ml @ 0 mls/hr CONT PRN IV SEE PROTOCOL Last administered on 08/06/19at 06:48; Start 07/31/19 at 00:15; Stop 08/07/19 at 11:18; Status DC Diltiazem HCl 125 mg/Sodium Chloride 125 ml @ 5 mls/hr CONT PRN IV SEE I/O RECORD Last administered on 08/01/19at 03:03; Start 07/31/19 at 01:00 Albuterol/ Ipratropium (Duoneb) 3 ml Q4HRS NEB Last administered on 08/10/19at 16:20; Start 07/31/19 at 04:00 Sodium Chloride 1,000 ml @ 120 mls/hr Q8H20M IV Last administered on 07/31/19at 02:30; Start 07/31/19 at 02:30; Stop 07/31/19 at 13:55; Status DC Vancomycin HCl (Vanco Per Pharmacy) 1 each PRN DAILY PRN MC SEE COMMENTS Last administered on 07/31/19at 03:30; Start 07/31/19 at 02:30; Stop 07/31/19 at 08:06; Status DC Vancomycin HCl 1.25 gm/Sodium Chloride 250 ml @ 167 mls/hr Q12H IV Last administered on 07/31/19at 07:57; Start 07/31/19 at 08:00; Stop 07/31/19 at 08:06; Status DC Vancomycin HCl (Vancomycin Trough Level) 1 each 1X ONCE MC ; Start 08/01/19 at 07:30; Stop 08/01/19 at 07:31; Status Cancel Micafungin Sodium 100 mg/Dextrose 100 ml @ 100 mls/hr Q24H IV Last administered on 08/10/19at 10:08; Start 07/31/19 at 08:00 Oseltamivir Phosphate (Tamiflu) 30 mg BID PO Last administered on 08/04/19at 21:02; Start 07/31/19 at 09:00; Stop 08/05/19 at 08:59; Status DC Linezolid/Dextrose 300 ml @ 300 mls/hr Q12HR IV Last administered on 08/04/19at 21:02; Start 07/31/19 at 09:00; Stop 08/05/19 at 08:02; Status DC Daptomycin 490 mg/ Sodium Chloride 50 ml @ 100 mls/hr Q24H IV Last administered on 07/31/19at 12:40; Start 07/31/19 at 10:00; Stop 08/01/19 at 09:01; Status DC Meropenem 1 gm/ Sodium Chloride 100 ml @ 200 mls/hr Q12HR IV Last administered on 08/10/19at 10:07; Start 07/31/19 at 09:00 Potassium Bicarbonate (Potassium Effervescent Tablet) 40 meq 1X ONCE PEG Last administered on 07/31/19at 10:54; Start 07/31/19 at 10:30; Stop 07/31/19 at 10:43; Status DC Famotidine (Pepcid Vial) 20 mg QHS IVP Last administered on 08/09/19at 22:19; Start 07/31/19 at 21:00 Albumin Human 100 ml @ 100 mls/hr TID IV Last administered on 08/02/19at 09:44; Start 07/31/19 at 14:30; Stop 08/02/19 at 09:59; Status DC Sodium Chloride 2,340 ml @ 2,340 mls/hr Q1H IV ; Start 07/31/19 at 14:48; Status UNV Sodium Chloride 500 ml @ 1,000 mls/hr PRN Q30MIN PRN IV SEE COMMENTS; Start 07/31/19 at 15:00; Status UNV Dobutamine HCl/ Dextrose 250 ml @ 0 mls/hr CONT PRN IV SEE I/O RECORD; Start 07/31/19 at 15:00; Status UNV Ondansetron HCl (Zofran) 4 mg PRN Q6HRS PRN IV NAUSEA/VOMITING; Start 07/31/19 at 15:00 Prochlorperazine (Compazine) 25 mg PRN Q12HR PRN CA NAUSEA/VOMITING; Start 07/31/19 at 15:00 Famotidine (Pepcid Vial) 20 mg BID IVP ; Start 07/31/19 at 21:00; Status UNV Sodium Chloride (Normal Saline Flush) 3 ml QSHIFT PRN IV AFTER MEDS AND BLOOD DRAWS; Start 07/31/19 at 15:00 Bisacodyl (Dulcolax Supp) 10 mg PRN DAILY PRN CA CONSTIPATION; Start 07/31/19 at 15:00 Thiamine HCl 100 mg/Dextrose 51 ml @ 102 mls/hr DAILY IV Last administered on 08/05/19at 10:15; Start 07/31/19 at 17:00; Stop 08/05/19 at 23:00; Status DC Vitamin A/Vitamin D (Vitamin A & D Ointment) 1 milton PRN Q1HR PRN TP SKIN PROTECTION Last administered on 08/03/19at 08:14; Start 07/31/19 at 16:45 Daptomycin 490 mg/ Sodium Chloride 50 ml @ 100 mls/hr Q48H IV Last administered on 08/03/19at 11:19; Start 08/01/19 at 10:00; Stop 08/04/19 at 07:59; Status DC Furosemide (Lasix) 40 mg 1X ONCE IVP Last administered on 08/01/19at 22:14; Start 08/01/19 at 22:30; Stop 08/01/19 at 22:31; Status DC Potassium Bicarbonate (Potassium Effervescent Tablet) 20 meq 1X ONCE PEG Last administered on 08/01/19at 22:14; Start 08/01/19 at 22:30; Stop 08/01/19 at 22:31; Status DC Lidocaine HCl (Buffered Lidocaine 1%) 3 ml STK-MED ONCE .ROUTE ; Start 08/03/19 at 09:05; Stop 08/03/19 at 09:05; Status DC Lidocaine HCl (Buffered Lidocaine 1%) 3 ml 1X ONCE INJ Last administered on 08/03/19at 09:28; Start 08/03/19 at 09:30; Stop 08/03/19 at 09:31; Status DC Multivitamins/ Minerals Therapeutic (Centrum Multivit-Mineral Liq) 5 ml DAILY PEG Last administered on 08/06/19at 10:26; Start 08/03/19 at 12:00 Sodium Chloride 1,000 ml @ 1,000 mls/hr Q1H PRN IV hypotension; Start 08/03/19 at 13:31; Stop 08/03/19 at 19:30; Status DC Sodium Chloride 1,000 ml @ 400 mls/hr Q2H30M PRN IV PATENCY; Start 08/03/19 at 13:31; Stop 08/04/19 at 01:30; Status DC Info (PHARMACY MONITORING -- do not chart) 1 each PRN DAILY PRN MC SEE COMMENTS; Start 08/03/19 at 13:45; Status UNV Info (PHARMACY MONITORING -- do not chart) 1 each PRN DAILY PRN MC SEE COMMENTS; Start 08/03/19 at 13:45; Stop 08/07/19 at 16:56; Status DC Ondansetron HCl (Zofran) 4 mg PRN Q6HRS PRN IV NAUSEA/VOMITING; Start 08/04/19 at 07:00; Stop 08/05/19 at 06:59; Status DC Fentanyl Citrate (Fentanyl 2ml Vial) 25 mcg PRN Q5MIN PRN IV MILD PAIN 1-3; Start 08/04/19 at 07:00; Stop 08/05/19 at 06:59; Status DC Fentanyl Citrate (Fentanyl 2ml Vial) 50 mcg PRN Q5MIN PRN IV MODERATE TO SEVERE PAIN; Start 08/04/19 at 07:00; Stop 08/05/19 at 06:59; Status DC Ringer's Solution 1,000 ml @ 30 mls/hr Q24H IV ; Start 08/04/19 at 07:00; Stop 08/04/19 at 18:59; Status DC Prochlorperazine Edisylate (Compazine) 5 mg PACU PRN PRN IV NAUSEA, MRX1; Start 08/04/19 at 07:00; Stop 08/05/19 at 06:59; Status DC Cefazolin Sodium 1 gm/Sodium Chloride 500 ml @ 500 mls/hr 1X ONCE IRR ; Start 08/04/19 at 06:00; Stop 08/04/19 at 06:59; Status DC Metoprolol Tartrate (Lopressor Vial) 5 mg Q6HRS IVP Last administered on 08/07/19at 11:35; Start 08/05/19 at 18:00; Stop 08/07/19 at 16:50; Status DC Thiamine Mononitrate (Vitamin B-1) 100 mg DAILY PEG Last administered on 08/05at 10:26; Start 08/06/19 at 09:00 Sodium Chloride 1,000 ml @ 1,000 mls/hr Q1H PRN IV hypotension; Start 08/05/19 at 16:00; Stop 08/05/19 at 21:59; Status DC Sodium Chloride (Normal Saline Flush) 10 ml 1X PRN PRN IV AP catheter pack; Start 08/05/19 at 16:00; Stop 08/06/19 at 15:59; Status DC Sodium Chloride (Normal Saline Flush) 10 ml 1X PRN PRN IV DESK ASSISTANT catheter pack; Start 08/05/19 at 16:00; Stop 08/06/19 at 15:59; Status DC Info (PHARMACY MONITORING -- do not chart) 1 each PRN DAILY PRN MC SEE COMMENTS; Start 08/05/19 at 20:30 Info (PHARMACY MONITORING -- do not chart) 1 each PRN DAILY PRN MC SEE COMMENTS; Start 08/05/19 at 20:30; Status UNV Propofol 100 ml @ 0 mls/hr CONT PRN IV SEE PROTOCOL Last administered on 08/06/19at 13:51; Start 08/06/19 at 13:45; Stop 08/07/19 at 11:18; Status DC Furosemide (Lasix) 40 mg 1X ONCE IVP Last administered on 08/07/19at 10:32; Start 08/07/19 at 10:15; Stop 08/07/19 at 10:19; Status DC Metoprolol Tartrate (Lopressor Vial) 7.5 mg Q6HRS IVP Last administered on 08/10/19at 12:21; Start 08/07/19 at 18:00 Hydralazine HCl (Apresoline Inj) 10 mg PRN Q4HRS PRN IVP ELEVATED BP, SEE COMMENTS Last administered on 08/08/19at 22:36; Start 08/07/19 at 17:00; Stop 08/09/19 at 07:42; Status DC Lorazepam (Ativan Inj) 0.5 mg PRN Q4HRS PRN IVP ANXIETY / AGITATION Last administered on 08/10/19at 05:26; Start 08/07/19 at 19:30 Acetaminophen (Tylenol Supp) 650 mg PRN Q6HRS PRN CA MILD PAIN / TEMP Last administered on 08/09/19at 07:27; Start 08/07/19 at 19:30 Hydralazine HCl (Apresoline Inj) 10 mg PRN Q4HRS PRN IVP ELEVATED BP, SEE COMMENTS Last administered on 08/10/19at 10:08; Start 08/08/19 at 12:45 Dextrose 1,000 ml @ 50 mls/hr Q20H IV Last administered on 08/10/19at 10:07; Start 08/08/19 at 16:30 Potassium Chloride/Water 100 ml @ 100 mls/hr Q1H IV Last administered on 08/10/19at 10:00; Start 08/10/19 at 08:00; Stop 08/10/19 at 10:59; Status DC Active Scripts Active Proair Hfa (Albuterol Sulfate) 8.5 Gm Hfa.aer.ad 2 Puff IH PRN Q4-6HRS PRN 21 Days Tessalon Perle (Benzonatate) 100 Mg Capsule 1 Cap PO TID Prednisone 50 Mg Tablet 1 Tab PO DAILY Cyclobenzaprine Hcl 5 Mg Tablet 1 Tab PO TID Ibuprofen 800 Mg Tablet 800 Mg PO Q6-8HRS Zofran Odt (Ondansetron) 4 Mg Tab.rapdis 1 Tab SL Q8HRS Ultram (Tramadol Hcl) 50 Mg Tablet 1 Tab PO Q6HRS Vitals/I & O Vital Sign - Last 24 Hours 08/09/19 08/09/19 08/09/19 08/09/19 17:50 19:50 20:00 20:00 Temp 98.3 98.3 Pulse 72 83 Resp 20 B/P (MAP) 163/74 164/84 (110) Pulse Ox 96 95 O2 Delivery Room Air Room Air Room Air 08/09/19 08/09/19 08/09/19 08/10/19 21:09 23:20 23:22 00:53 Temp 98.4 98.4 Pulse 73 75 Resp 16 B/P (MAP) 178/88 (118) 165/91 Pulse Ox 95 92 O2 Delivery Room Air Room Air Room Air 08/10/19 08/10/19 08/10/19 08/10/19 03:30 03:30 06:33 07:00 Temp 98.4 98.0 98.4 98.0 Pulse 82 70 63 Resp 20 19 B/P (MAP) 165/91 (115) 168/88 179/87 (117) Pulse Ox 92 93 O2 Delivery Room Air Room Air Room Air 08/10/19 08/10/19 08/10/19 08/10/19 07:17 08:00 10:08 10:59 Temp 98.6 98.6 Pulse 68 68 Resp 19 B/P (MAP) 175/83 175/80 (111) Pulse Ox 94 94 O2 Delivery Room Air Room Air Room Air O2 Flow Rate 2.0 08/10/19 08/10/19 08/10/19 08/10/19 11:19 12:21 14:45 16:20 Temp 98.4 98.4 Pulse 85 78 Resp 19 B/P (MAP) 172/78 173/83 (113) Pulse Ox 94 93 93 O2 Delivery Room Air Room Air Room Air Intake and Output 08/09/19 08/09/19 08/10/19 15:00 23:00 07:00 Intake Total 1500 ml 150 ml 0 ml Output Total 350 ml 326 ml 751 ml Balance 1150 ml -176 ml -751 ml Nutrition Consultation Dietary Evaluation: Recommendations by RD: Dietary education by RD, Increase Calorie Intake, Protein supplementation Comments: REC advance diet as able pending [employer]ING[employer] SEQUINS eval, goal diet regular w/Javi BID and continue MVI for wound healing If unable to advance diet within 48 - 72 hrs , recommend consideration of dobhoff placement for TFs per following: Jevity 1.5@goal rate 60 ml/hr w/200 ml water flushes q4 hrs, w/Javi BID via dobhoff and liquid MVI (wound healing) Expected Outcomes/Goals: New goal 08/06: intiaition of nutrition within 24 - 72 hrs s/p extubation- not met, goal ongoing Malnutrition Findings: Food and Nutrition Intake (Mod: <75% est energy req 7days Body Fat Depletion (Non Severe: Mild Depletion Weight Status: Appropriate CHI TONY MD Aug 10, 2019 17:35
[2019-08-10 19:15] VITALS: BP 140/69
[2019-08-10] MEDS: FAMOTIDINE 20 MG/2 ML VIAL IVP SCH (20:47)
[2019-08-10 23:20] VITALS: BP 162/86
[2019-08-11] MEDS: METOPROLOL TARTRATE 5 MG/5 ML VIAL. IVP SCH ×4 (00:21→18:01)
[2019-08-11] MEDS: IPRATRPIUM/ALBUTEROL 0.5/2.5MG 3 ML NEBU. NEB SCH ×7 (03:10→21:34)
[2019-08-11 03:25] VITALS: BP 127/61
[2019-08-11] MEDS: IV DEXTROSE 5% 1,000 ML IV SCH (06:05)
[2019-08-11] MEDS: HEPARIN 25,000UTS/250ML PREMIX 250 ML IV PRN ×2 (06:33→21:11)
[2019-08-11 06:34] LABS: CALCIUM 7.8 mg/dL (8.5-10.1); CREATININE 1.1 mg/dL (0.7-1.3); MAGNESIUM 1.3 mg/dL (1.8-2.4)
[2019-08-11 06:42] LABS: POTASSIUM 2.8 mmol/L (3.5-5.1)
[2019-08-11 07:00] VITALS: BP 149/79
[2019-08-11] MEDS: MICAFUNGIN 100 MG in IV DEXTROSE 5% 100ML 100 ML IV SCH (08:42)
[2019-08-11] MEDS: POTASSIUM CHLORIDE 20MEQ 100 ML IV SCH ×4 (08:42→17:56)
[2019-08-11] MEDS: MULTIVITAMINS,THERAPEUTIC 5 ML ORAL LIQUID. PEG SCH (09:00)
[2019-08-11] MEDS: THIAMINE 100 MG TABLET. PEG SCH (09:00)
--- NOTE | 2019-08-11 09:22 | PDOC ---
Infectious Disease Note Subjective Subjective pt is feeling better ROS ROS no n/v/d/sob Vital Sign Vital Signs Vital Signs Date Time Temp Pulse Resp B/P (MAP) Pulse Ox O2 Delivery O2 Flow Rate FiO2 08/11/19 07:38 92 Room Air 08/11/19 07:00 97.7 73 19 149/79 (102) 97.7 08/10/19 20:45 2.0 Physical Exam PHYSICAL EXAM GENERAL: Opens eyes to name, no response to questions or follows commands HEENT: Pupils equal, Oral cavity dry NECK: Supple. LUNGS: Clear, nonlabored HEART: S1, S2, irregular rhythm. ABDOMEN: Obese, soft, mildly distended : Valladares in place, 1 + scrotal swelling, erythema, EXTREMITIES: Ischemic changes right foot with 4 th toe gangrene toe. Left foot pink. Rooke boots bilaterally SKIN: Wrm to touch. No generalized rash. RIJ and R HD cath (08/02) without signs of complications . Labs Lab Laboratory Tests Test 08/10/19 15:40 08/10/19 23:50 08/11/19 06:10 Heparin Anti-Xa Act, Unfractionated 0.77 IU/mL (0.30-0.70) 0.56 IU/mL (0.30-0.70) 0.72 IU/mL (0.30-0.70) Sodium Level 150 mmol/L (136-145) Potassium Level 2.8 mmol/L (3.5-5.1) Chloride Level 115 mmol/L (98-107) Carbon Dioxide Level 26 mmol/L (21-32) Anion Gap 9 (6-14) Blood Urea Nitrogen 35 mg/dL (8-26) Creatinine 1.1 mg/dL (0.7-1.3) Estimated GFR (Cockcroft-Gault) 67.0 Glucose Level 93 mg/dL (70-99) Calcium Level 7.8 mg/dL (8.5-10.1) Magnesium Level 1.3 mg/dL (1.8-2.4) Micro Microbiology 08/02/19 Blood Culture - Final, Complete NO GROWTH AFTER 5 DAYS 07/31/19 - Final, Complete 07/31/19 - Final, Complete 07/31/19 - Final, Complete 07/31/19 Gram Stain Evaluation - Final, Complete 2/28/20 Sputum Culture - Final, Complete 07/31/19 Sputum Result 1 - Final, Complete 07/30/19 Urine Culture - Final, Complete 07/30/19 Urine Culture Result 1 (SONIA) - Final, Complete Objective Assessment Fever Septic shock procalcitonin 25.26 - improved Strep pneumo sepsis (4 of 4 bottles), 07/30 ? source.- ?lung with strep pneumo ? foot -Repeat BC and 08/01 neg to date. TTE (07/31) no evidence veg Leukocytosis - improved Influenza A, respiratory tract infection. Treated Acute hypoxic respiratory failure with pneumonia, status post intubation. 07/31. strep pneumo & GPR - no identified on gram stain/mold. Severe peripheral vascular disease, right foot ischemia/gangrene Encephalopathy. Lactic acidosis. Acute kidney injury - improving Hyperbilirubinemia. LFT elevation. Atrial fibrillation with rapid ventricular response, on amiodarone. Homelessness. Groin dermatitis. Tinea Hypernatremia Plan Plan of Care Cont Merrem, and micafungin Off Daptomycin and Zyvox Follow up labs and cultures Maintain aspiration precautions Surgery on toe- not performed as unable to get consent D/w micro, work-up for mold ID underway Critically ill D/w nursing ROBERTO CHAWLA MD Aug 11, 2019 09:22
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
--- NOTE | 2019-08-11 10:26 | PDOC ---
PULMONARY PROGRESS NOTES Subjective extubated on 08/07/2019 , more Alert Vitals Vital Signs Date Time Temp Pulse Resp B/P (MAP) Pulse Ox O2 Delivery O2 Flow Rate FiO2 08/11/19 07:38 92 Room Air 08/11/19 07:00 97.7 73 19 149/79 (102) 97.7 08/10/19 20:45 2.0 General: Alert Lungs: Clear Cardiovascular: S1, S2 Abdomen: Soft Extremities: Other (PVD) Skin: Warm Labs Laboratory Tests Test 08/10/19 06:30 08/10/19 07:55 08/10/19 15:40 08/10/19 23:50 White Blood Count 10.3 x10^3/uL (4.0-11.0) Red Blood Count 3.68 x10^6/uL (4.30-5.70) Hemoglobin 12.0 g/dL (13.0-17.5) Hematocrit 35.4 % (39.0-53.0) Mean Corpuscular Volume 96 fL (79-100) Mean Corpuscular Hemoglobin 33 pg (25-35) Mean Corpuscular Hemoglobin Concent 34 g/dL (31-37) Red Cell Distribution Width 13.8 % (11.5-14.5) Platelet Count 244 x10^3/uL (140-400) Neutrophils (%) (Auto) 70 % (31-73) Lymphocytes (%) (Auto) 18 % (24-48) Monocytes (%) (Auto) 7 % (0-9) Eosinophils (%) (Auto) 4 % (0-3) Basophils (%) (Auto) 1 % (0-3) Neutrophils # (Auto) 7.2 x10^3/uL (1.8-7.7) Lymphocytes # (Auto) 1.9 x10^3/uL (1.0-4.8) Monocytes # (Auto) 0.7 x10^3/uL (0.0-1.1) Eosinophils # (Auto) 0.4 x10^3/uL (0.0-0.7) Basophils # (Auto) 0.1 x10^3/uL (0.0-0.2) Sodium Level 151 mmol/L (136-145) Potassium Level 2.8 mmol/L (3.5-5.1) Chloride Level 113 mmol/L (98-107) Carbon Dioxide Level 28 mmol/L (21-32) Anion Gap 10 (6-14) Blood Urea Nitrogen 41 mg/dL (8-26) Creatinine 1.2 mg/dL (0.7-1.3) Estimated GFR (Cockcroft-Gault) 60.6 BUN/Creatinine Ratio 34 (6-20) Glucose Level 90 mg/dL (70-99) Calcium Level 8.1 mg/dL (8.5-10.1) Total Bilirubin 1.3 mg/dL (0.2-1.0) Aspartate Amino Transf (AST/SGOT) 143 U/L (15-37) Alanine Aminotransferase (ALT/SGPT) 59 U/L (16-63) Alkaline Phosphatase 79 U/L (46-116) Total Protein 6.9 g/dL (6.4-8.2) Albumin 2.2 g/dL (3.4-5.0) Albumin/Globulin Ratio 0.5 (1.0-1.7) Heparin Anti-Xa Act, Unfractionated < 0.10 IU/mL (0.30-0.70) 0.77 IU/mL (0.30-0.70) 0.56 IU/mL (0.30-0.70) Test 08/11/19 06:10 Heparin Anti-Xa Act, Unfractionated 0.72 IU/mL (0.30-0.70) Sodium Level 150 mmol/L (136-145) Potassium Level 2.8 mmol/L (3.5-5.1) Chloride Level 115 mmol/L (98-107) Carbon Dioxide Level 26 mmol/L (21-32) Anion Gap 9 (6-14) Blood Urea Nitrogen 35 mg/dL (8-26) Creatinine 1.1 mg/dL (0.7-1.3) Estimated GFR (Cockcroft-Gault) 67.0 Glucose Level 93 mg/dL (70-99) Calcium Level 7.8 mg/dL (8.5-10.1) Magnesium Level 1.3 mg/dL (1.8-2.4) Laboratory Tests Test 08/10/19 15:40 08/10/19 23:50 08/11/19 06:10 Heparin Anti-Xa Act, Unfractionated 0.77 IU/mL (0.30-0.70) 0.56 IU/mL (0.30-0.70) 0.72 IU/mL (0.30-0.70) Sodium Level 150 mmol/L (136-145) Potassium Level 2.8 mmol/L (3.5-5.1) Chloride Level 115 mmol/L (98-107) Carbon Dioxide Level 26 mmol/L (21-32) Anion Gap 9 (6-14) Blood Urea Nitrogen 35 mg/dL (8-26) Creatinine 1.1 mg/dL (0.7-1.3) Estimated GFR (Cockcroft-Gault) 67.0 Glucose Level 93 mg/dL (70-99) Calcium Level 7.8 mg/dL (8.5-10.1) Magnesium Level 1.3 mg/dL (1.8-2.4) Medications Active Scripts Medications Dose Route/Sig Max Daily Dose Days Date Category Proair Hfa (Albuterol Sulfate) 8.5 Gm Hfa.aer.ad 2 Puff IH PRN Q4-6HRS PRN 21 07/25/19 Rx Tessalon Perle (Benzonatate) 100 Mg Capsule 1 Cap PO TID 07/25/19 Rx Prednisone 50 Mg Tablet 1 Tab PO DAILY 07/25/19 Rx Cyclobenzaprine Hcl 5 Mg Tablet 1 Tab PO TID 03/21/17 Rx Ibuprofen 800 Mg Tablet 800 Mg PO Q6-8HRS 03/21/17 Rx Zofran Odt (Ondansetron) 4 Mg Tab.rapdis 1 Tab SL Q8HRS 01/07/17 Rx Ultram (Tramadol Hcl) 50 Mg Tablet 1 Tab PO Q6HRS 01/29/16 Rx Comments CXR 08/06 CHF/ EFFUSION Impression . IMPRESSION: 1. Acute hypoxemic respiratory failure. MULTIFACTORIAL 2. Sepsis. 3. Pneumonia, suspect gram-negative, possibly gram-positive. 4. Influenza A. 5. New onset atrial fibrillation. 6. Peripheral vascular disease with possible peripheral emboli. 7. Metabolic acidosis. 8. Acute renal failure. 9. Severe protein malnutrition, present upon admission. 10. Elevated total bilirubin. 11. Abnormal cxr/ CHF Plan . extubated on 08/06, remains on N/C, cont. supplemental oxygent o keep sats above 92% Nebs Follow nephrology recs-- monitor sodium Antibiotics per ID cont. IV heparin and follow vascular surgery recs -- awaiting consent for surgery CXR reviewed stable pulmonary adam D/W INEZ PEÑA MD Aug 11, 2019 10:26
[2019-08-11 10:47] VITALS: BP_SYST 146; BP_SYST 154; BP_DIAS 47; BP_DIAS 72
[2019-08-11] MEDS: MEROPENEM 1 GM in IV NORMAL SALINE 100ML 100 ML IV SCH ×2 (11:10→21:08)
--- NOTE | 2019-08-11 11:12 | PDOC ---
Renal-Progress Notes Subjective Notes Notes DRY MOUTH History of Present Illness Hx of present illness NOT EATING Vitals Vitals Vital Signs Date Time Temp Pulse Resp B/P (MAP) Pulse Ox O2 Delivery O2 Flow Rate FiO2 08/11/19 10:47 97.8 74 18 154/72 (99) 97 Room Air 97.8 08/10/19 20:45 2.0 Weight Weight [ ] I.O. Intake and Output Intake and Output 08/11/19 07:00 Intake Total 0 ml Output Total 2600 ml Balance -2600 ml Intake Oral 0 ml Output Urine Total 2600 ml # Bowel Movements 1 Labs Labs Laboratory Tests Test 08/10/19 15:40 08/10/19 23:50 08/11/19 06:10 Heparin Anti-Xa Act, Unfractionated 0.77 IU/mL (0.30-0.70) 0.56 IU/mL (0.30-0.70) 0.72 IU/mL (0.30-0.70) Sodium Level 150 mmol/L (136-145) Potassium Level 2.8 mmol/L (3.5-5.1) Chloride Level 115 mmol/L (98-107) Carbon Dioxide Level 26 mmol/L (21-32) Anion Gap 9 (6-14) Blood Urea Nitrogen 35 mg/dL (8-26) Creatinine 1.1 mg/dL (0.7-1.3) Estimated GFR (Cockcroft-Gault) 67.0 Glucose Level 93 mg/dL (70-99) Calcium Level 7.8 mg/dL (8.5-10.1) Magnesium Level 1.3 mg/dL (1.8-2.4) Micro Micro Microbiology 08/02/19 Blood Culture - Final, Complete NO GROWTH AFTER 5 DAYS 07/31/19 - Final, Complete 07/31/19 - Final, Complete 07/31/19 - Final, Complete 07/31/19 Gram Stain Evaluation - Final, Complete 07/31/19 Sputum Culture - Final, Complete 07/31/19 Sputum Result 1 - Final, Complete 07/30/19 Urine Culture - Final, Complete 07/30/19 Urine Culture Result 1 (SONIA) - Final, Complete Review of Systems Constitutional: yes: weakness Ears/Nose/Throat: Yes: no symptom reported Eyes: Yes: no symptom reported Cardiovascular: Yes no symptom reported Gastrointestional: Yes: no symptom reported Genitourinary: Yes: no symptom reported Musculoskeletal: Yes: no symptom reported Skin: Yes no symptom reported Psychiatric/Neurological: Yes: no symptom reported Endocrine: Yes: no symptom reported Physical Exam General Appearance: no apparent distress Skin: warm Respiratory: decreased breath sounds Heart: S1S2 Abdomen: soft, bowel sounds present Extremities: pulses present Neurology: alert, oriented, other (off sedation; not awake ) Assessment Assessment IMP HYPOKALEMIA MILD HYPERNATREMIA-BETTER LOW MAG RESOLVING SONIA-LAST HD TWICE 08/02 AND 08/04-CR OF PNEUMONIA-SEPSIS INFLUENZA A AFIB RVR PAD WITH R 4TH TOE GANGRENE PLAN PPN REPLACE K AND MAG ANTIBIOTICS HOLD OFF HD FOR NOW-D/C DIALYSIS CATHETER WILL FOLLOW JOHN PINON MD Aug 11, 2019 11:12
[2019-08-11] MEDS ORDERED: MAGNESIUM SULFATE 2GM 50 ML IV ONE (11:15)
--- NOTE | 2019-08-11 14:40 | NUR ---
Wound Care: Patient seen per wound care follow up. See wound assessment. Patient has gangrene to right 4th toe. Wound cleansed and assessed. Rn stated they are waiting for pt to become A&O to sign consent as family is refusing. therefore just redressed the toe as well as dorsal foot which is an open blister with xeroform gauze, ABD pad and kerlix. Patient has bilateral rooke boots. No other wounds noted upon complete head to toe assessment. Coccyx is reddened but remains blanchable, A&D ointment applied.[id number] bed ordered at this time and turned to left using wedge. Pt educated on PU prevention but will require reinforcement of teaching. Will follow patient regarding wound care.
[2019-08-11 14:50] VITALS: BP 145/70
--- NOTE | 2019-08-11 14:59 | PDOC ---
PROGRESS NOTES Chief Complaint Chief Complaint Assessment/Plan 1. ACUTE HYPOXIC RESPIRATORY FAILURE, extubated on 08/06, 2. INFLUENZA A 3. Sepsis 4, PNA (pneumonia) 5. Altered mental status 6. ischemic right 4th toe 7. SONIA 8. a fib rvr 9. severe sepsis 10. homeless, self neglect due to lack of funds 11. 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 LABILE HTN 13. Unsteady gait plan Follow PULM recommendations ID recommendations greatly appreciated D/C Daptomycin Cont Merrem, and micafungin Off Daptomycin and Zyvox Micafungin, for groin dermatitis, // yeast. VENT SUPPORT D/C 08/06 CONSULT NEUROLOGY dvt prophylaxis vascular surgery FOLLOWING Nephrology consult cardiology consult cardizem drip IV HYDRALAZINE 10 MG Q 4 HRS PRN BP SUPPORT Let tissues demarcate and possibly areas heal. . Will continue heparin drip and Rooke boots. Family refuses to give consent for toe amputation 08/06 this can probably be readdressed now that the patient has improved. HyperNatremia- D5W IV , GUARDED PROGNOSIS extubated 08/07/19 AM Interval extubation. 08/08 NOT ALERT ENOUGH TO SIGN CONSENT Duration of Treatment Expected * 2 weeks Discharge Recommendations * Half-Way Unit History of Present Illness History of Present Illness Patient continues to be stable, the patient has had a quite prolonged hospital stay. Severely deconditioned in my opinion, will need placement Vitals Vitals Vital Signs Date Time Temp Pulse Resp B/P (MAP) Pulse Ox O2 Delivery O2 Flow Rate FiO2 08/11/19 14:50 97.8 74 19 145/70 (95) 97 Room Air 97.8 08/10/19 20:45 2.0 Physical Exam Physical Exam GENERAL: Opens eyes to name, no response to questions or follows commands HEENT: Pupils equal, Oral cavity dry NECK: Supple. LUNGS: Clear, nonlabored HEART: S1, S2, irregular rhythm. ABDOMEN: Obese, soft, mildly distended : Valladares in place, 1 + scrotal swelling, erythema, EXTREMITIES: Ischemic changes right foot with 4 th toe gangrene toe. Left foot pink. Rooke boots bilaterally SKIN: Wrm to touch. No generalized rash. RIJ and R HD cath (08/02) without signs of complications . General: Alert, Oriented X3, Cooperative, No acute distress, Other (intubated) Heart: Regular rate, Normal S1, Other (irregular rhythm) Lungs: Clear Abdomen: Normal bowel sounds, Soft, No tenderness Extremities: No clubbing, No cyanosis, Other (ischemic right 4th toe) Skin: Other (right 4th toe lesion) Labs LABS Laboratory Tests Test 08/10/19 15:40 08/10/19 23:50 08/11/19 06:10 Heparin Anti-Xa Act, Unfractionated 0.77 IU/mL (0.30-0.70) 0.56 IU/mL (0.30-0.70) 0.72 IU/mL (0.30-0.70) Sodium Level 150 mmol/L (136-145) Potassium Level 2.8 mmol/L (3.5-5.1) Chloride Level 115 mmol/L (98-107) Carbon Dioxide Level 26 mmol/L (21-32) Anion Gap 9 (6-14) Blood Urea Nitrogen 35 mg/dL (8-26) Creatinine 1.1 mg/dL (0.7-1.3) Estimated GFR (Cockcroft-Gault) 67.0 Glucose Level 93 mg/dL (70-99) Calcium Level 7.8 mg/dL (8.5-10.1) Magnesium Level 1.3 mg/dL (1.8-2.4) Review of Systems Review of Systems Review of systems pertinent as per HPI otherwise 14 point review of system is negative Assessment and Plan Assessmemt and Plan Problems Medical Problems: (1) Altered mental status Status: Acute Comment Review of Relevant I have reviewed the following items hay (where applicable) has been applied. Labs Laboratory Tests Test 08/10/19 06:30 08/10/19 07:55 08/10/19 15:40 08/10/19 23:50 White Blood Count 10.3 x10^3/uL (4.0-11.0) Red Blood Count 3.68 x10^6/uL (4.30-5.70) Hemoglobin 12.0 g/dL (13.0-17.5) Hematocrit 35.4 % (39.0-53.0) Mean Corpuscular Volume 96 fL (79-100) Mean Corpuscular Hemoglobin 33 pg (25-35) Mean Corpuscular Hemoglobin Concent 34 g/dL (31-37) Red Cell Distribution Width 13.8 % (11.5-14.5) Platelet Count 244 x10^3/uL (140-400) Neutrophils (%) (Auto) 70 % (31-73) Lymphocytes (%) (Auto) 18 % (24-48) Monocytes (%) (Auto) 7 % (0-9) Eosinophils (%) (Auto) 4 % (0-3) Basophils (%) (Auto) 1 % (0-3) Neutrophils # (Auto) 7.2 x10^3/uL (1.8-7.7) Lymphocytes # (Auto) 1.9 x10^3/uL (1.0-4.8) Monocytes # (Auto) 0.7 x10^3/uL (0.0-1.1) Eosinophils # (Auto) 0.4 x10^3/uL (0.0-0.7) Basophils # (Auto) 0.1 x10^3/uL (0.0-0.2) Sodium Level 151 mmol/L (136-145) Potassium Level 2.8 mmol/L (3.5-5.1) Chloride Level 113 mmol/L (98-107) Carbon Dioxide Level 28 mmol/L (21-32) Anion Gap 10 (6-14) Blood Urea Nitrogen 41 mg/dL (8-26) Creatinine 1.2 mg/dL (0.7-1.3) Estimated GFR (Cockcroft-Gault) 60.6 BUN/Creatinine Ratio 34 (6-20) Glucose Level 90 mg/dL (70-99) Calcium Level 8.1 mg/dL (8.5-10.1) Total Bilirubin 1.3 mg/dL (0.2-1.0) Aspartate Amino Transf (AST/SGOT) 143 U/L (15-37) Alanine Aminotransferase (ALT/SGPT) 59 U/L (16-63) Alkaline Phosphatase 79 U/L (46-116) Total Protein 6.9 g/dL (6.4-8.2) Albumin 2.2 g/dL (3.4-5.0) Albumin/Globulin Ratio 0.5 (1.0-1.7) Heparin Anti-Xa Act, Unfractionated < 0.10 IU/mL (0.30-0.70) 0.77 IU/mL (0.30-0.70) 0.56 IU/mL (0.30-0.70) Test 08/11/19 06:10 Heparin Anti-Xa Act, Unfractionated 0.72 IU/mL (0.30-0.70) Sodium Level 150 mmol/L (136-145) Potassium Level 2.8 mmol/L (3.5-5.1) Chloride Level 115 mmol/L (98-107) Carbon Dioxide Level 26 mmol/L (21-32) Anion Gap 9 (6-14) Blood Urea Nitrogen 35 mg/dL (8-26) Creatinine 1.1 mg/dL (0.7-1.3) Estimated GFR (Cockcroft-Gault) 67.0 Glucose Level 93 mg/dL (70-99) Calcium Level 7.8 mg/dL (8.5-10.1) Magnesium Level 1.3 mg/dL (1.8-2.4) Laboratory Tests Test 08/10/19 15:40 08/10/19 23:50 08/11/19 06:10 Heparin Anti-Xa Act, Unfractionated 0.77 IU/mL (0.30-0.70) 0.56 IU/mL (0.30-0.70) 0.72 IU/mL (0.30-0.70) Sodium Level 150 mmol/L (136-145) Potassium Level 2.8 mmol/L (3.5-5.1) Chloride Level 115 mmol/L (98-107) Carbon Dioxide Level 26 mmol/L (21-32) Anion Gap 9 (6-14) Blood Urea Nitrogen 35 mg/dL (8-26) Creatinine 1.1 mg/dL (0.7-1.3) Estimated GFR (Cockcroft-Gault) 67.0 Glucose Level 93 mg/dL (70-99) Calcium Level 7.8 mg/dL (8.5-10.1) Magnesium Level 1.3 mg/dL (1.8-2.4) Microbiology 08/02/19 Blood Culture - Final, Complete NO GROWTH AFTER 5 DAYS 07/31/19 - Final, Complete 07/31/19 - Final, Complete 07/31/19 - Final, Complete 07/31/19 Gram Stain Evaluation - Final, Complete 07/31/19 Sputum Culture - Final, Complete 07/31/19 Sputum Result 1 - Final, Complete 07/30/19 Urine Culture - Final, Complete 07/30/19 Urine Culture Result 1 (SONIA) - Final, Complete Medications Current Medications Albuterol/ Ipratropium (Duoneb) 3 ml 1X ONCE NEB Last administered on 07/30/19at 18:00; Start 07/30/19 at 18:00; Stop 07/30/19 at 18:01; Status DC Albuterol Sulfate (Ventolin Neb Soln) 10 mg 1X ONCE CONT NEB Last administered on 07/30/19at 18:00; Start 07/30/19 at 18:00; Stop 07/30/19 at 18:01; Status DC Morphine Sulfate (Morphine Sulfate) 2 mg PRN Q15MIN PRN IV/SQ PAIN GREATER THAN 3/10 Last administered on 07/30/19at 18:08; Start 07/30/19 at 18:00; Stop 07/31/19 at 00:10; Status DC Diltiazem HCl (Cardizem Iv Push) 10 mg 1X ONCE IVP Last administered on 07/30/19at 18:01; Start 07/30/19 at 18:00; Stop 07/30/19 at 18:01; Status DC Diltiazem HCl 125 mg/Sodium Chloride 125 ml @ 5 mls/hr 1X ONCE IV Last administered on 07/30/19at 18:36; Start 07/30/19 at 18:00; Stop 07/31/19 at 18:59; Status DC Lorazepam (Ativan Inj) 2 mg 1X ONCE IVP Last administered on 07/30/19at 18:35; Start 07/30/19 at 18:15; Stop 07/30/19 at 18:16; Status DC Lorazepam (Ativan Inj) 2 mg STK-MED ONCE .ROUTE ; Start 07/30/19 at 18:14; Stop 07/30/19 at 18:14; Status DC Digoxin (Lanoxin) 250 mcg 1X ONCE IV Last administered on 07/30/19at 18:53; Start 07/30/19 at 18:45; Stop 07/30/19 at 18:46; Status DC Amiodarone HCl 150 mg/Dextrose 103 ml @ 618 mls/hr 1X ONCE IV Last administered on 07/30/19at 20:07; Start 07/30/19 at 18:45; Stop 07/30/19 at 18:54; Status DC Amiodarone HCl 450 mg/Dextrose 259 ml @ 0 mls/hr CONT PRN IV SEE I/O RECORD Last administered on 07/30/19at 20:21; Start 07/30/19 at 18:45 Sodium Chloride 1,000 ml @ 1,000 mls/hr 1X ONCE IV Last administered on 07/30/19at 18:20; Start 07/30/19 at 18:45; Stop 07/31/19 at 02:15; Status DC Sodium Chloride 2,130 ml @ 2,130 mls/hr Q1H IV Last administered on 07/30/19at 19:02; Start 07/30/19 at 18:53; Stop 07/31/19 at 02:15; Status DC Piperacillin Sod/ Tazobactam Sod 4.5 gm/Sodium Chloride 100 ml @ 200 mls/hr 1X ONCE IV Last administered on 07/30/19at 19:06; Start 07/30/19 at 19:00; Stop 07/31/19 at 08:04; Status DC Vancomycin HCl (Vanco Per Pharmacy) 1 each 1X ONCE MC ; Start 07/30/19 at 19:00; Stop 07/31/19 at 08:04; Status DC Norepinephrine Bitartrate 8 mg/ Dextrose 258 ml @ 0 mls/hr CONT PRN IV PER PROTOCOL; Start 07/30/19 at 19:00; Stop 07/31/19 at 08:04; Status DC Potassium Chloride/Water 100 ml @ 100 mls/hr Q1H IV Last administered on 07/30/19at 21:31; Start 07/30/19 at 19:30; Stop 07/30/19 at 21:29; Status DC Vancomycin HCl 2 gm/Sodium Chloride 500 ml @ 250 mls/hr 1X ONCE IV Last administered on 07/30/19at 20:15; Start 07/30/19 at 19:15; Stop 07/30/19 at 21:14; Status DC Fentanyl Citrate (Fentanyl 2ml Vial) 25 mcg PRN Q1HR PRN IV SEE COMMENTS; Start 07/30/19 at 19:15; Stop 07/31/19 at 00:11; Status DC Fentanyl Citrate (Fentanyl 2ml Vial) 50 mcg PRN Q1HR PRN IV SEE COMMENTS; Start 07/30/19 at 19:15; Stop 07/31/19 at 00:11; Status DC Chlorhexidine Gluconate (Peridex) 15 ml BID MM Last administered on 08/06/19at 21:19; Start 07/30/19 at 21:00; Stop 08/07/19 at 11:18; Status DC Morphine Sulfate (Morphine Sulfate) 2 mg PRN Q1HR PRN IV SEE COMMENTS.; Start 07/30/19 at 19:15; Stop 07/31/19 at 00:11; Status DC Morphine Sulfate (Morphine Sulfate) 4 mg PRN Q1HR PRN IV SEE COMMENTS.; Start 07/30/19 at 19:15; Stop 07/31/19 at 00:11; Status DC Midazolam HCl 50 mg/Sodium Chloride 50 ml @ 0 mls/hr CONT PRN IV SEE PROTOCOL Last administered on 07/30/19at 20:40; Start 07/30/19 at 19:15; Stop 07/31/19 at 00:10; Status DC Acetaminophen (Tylenol Supp) 650 mg 1X ONCE OH Last administered on 07/30/19at 20:49; Start 07/30/19 at 20:15; Stop 07/30/19 at 20:16; Status DC Ondansetron HCl (Zofran) 4 mg PRN Q8HRS PRN IV NAUSEA/VOMITING; Start 07/30/19 at 20:30; Stop 07/31/19 at 20:29; Status DC Acetaminophen (Tylenol) 650 mg PRN Q4HRS PRN PO FEVER Last administered on 07/31/19at 12:49; Start 07/30/19 at 20:30; Stop 07/31/19 at 20:29; Status DC Heparin Sodium/ Dextrose 250 ml @ 0 mls/hr CONT PRN IV PER PROTOCOL Last administered on 08/11/19at 06:33; Start 07/30/19 at 20:45 Heparin Sodium (Porcine) (Heparin Sodium) 2,200 unit PRN Q6HRS PRN IV FOR UFH LEVEL LESS THAN 0.2 Last administered on 08/10/19at 10:11; Start 07/30/19 at 20:45 Info (Anti-Coagulation Monitoring By Pharmacy) 1 each PRN DAILY PRN MC SEE COMMENTS Last administered on 08/09/19at 13:18; Start 07/30/19 at 21:00 Etomidate (Amidate) 20 mg STK-MED ONCE IV ; Start 07/30/19 at 21:15; Stop 07/30/19 at 21:16; Status DC Rocuronium Bowdle (Zemuron) 50 mg STK-MED ONCE .ROUTE ; Start 07/30/19 at 21:16; Stop 07/30/19 at 21:16; Status DC Diltiazem HCl 125 mg/Sodium Chloride 125 ml @ 5 mls/hr CONT PRN IV SEE I/O R ECORD; Start 07/30/19 at 22:30; Stop 07/31/19 at 06:01; Status DC Sodium Bicarbonate 100 meq/Dextrose 1,100 ml @ 75 mls/hr 1X ONCE IV Last administered on 07/31/19at 01:54; Start 07/30/19 at 23:00; Stop 07/31/19 at 13:39; Status DC Etomidate (Amidate) 20 mg 1X ONCE IV Last administered on 07/30/19at 19:27; Start 07/30/19 at 23:45; Stop 07/30/19 at 23:46; Status DC Rocuronium Bowdle (Zemuron) 50 mg 1X ONCE IV Last administered on 07/30/19at 19:28; Start 07/30/19 at 23:45; Stop 07/30/19 at 23:46; Status DC Rocuronium Bowdle (Zemuron) 50 mg 1X ONCE IV Last administered on 07/30/19at 19:28; Start 07/30/19 at 23:45; Stop 07/30/19 at 23:46; Status DC Digoxin (Lanoxin) 250 mcg 1X ONCE IV Last administered on 07/31/19at 00:12; Start 07/31/19 at 00:30; Stop 07/31/19 at 00:31; Status DC Heparin Sodium/ Dextrose 250 ml @ 0 mls/hr CONT PRN IV SEE I/O RECORD; Start 07/31/19 at 00:00; Status UNV Fentanyl Citrate 30 ml @ 0 mls/hr CONT PRN IV SEE PROTOCOL Last administered on 08/06/19at 06:48; Start 07/31/19 at 00:15; Stop 08/07/19 at 11:18; Status DC Midazolam HCl 50 mg/Sodium Chloride 50 ml @ 0 mls/hr CONT PRN IV SEE PROTOCOL Last administered on 08/06/19at 06:48; Start 07/31/19 at 00:15; Stop 08/07/19 at 11:18; Status DC Diltiazem HCl 125 mg/Sodium Chloride 125 ml @ 5 mls/hr CONT PRN IV SEE I/O RECORD Last administered on 08/01/19at 03:03; Start 07/31/19 at 01:00 Albuterol/ Ipratropium (Duoneb) 3 ml Q4HRS NEB Last administered on 08/11/19at 12:47; Start 07/31/19 at 04:00 Sodium Chloride 1,000 ml @ 120 mls/hr Q8H20M IV Last administered on 07/31/19at 02:30; Start 07/31/19 at 02:30; Stop 07/31/19 at 13:55; Status DC Vancomycin HCl (Vanco Per Pharmacy) 1 each PRN DAILY PRN MC SEE COMMENTS Last administered on 07/31/19at 03:30; Start 07/31/19 at 02:30; Stop 07/31/19 at 08:06; Status DC Vancomycin HCl 1.25 gm/Sodium Chloride 250 ml @ 167 mls/hr Q12H IV Last administered on 07/31/19at 07:57; Start 07/31/19 at 08:00; Stop 07/31/19 at 08:06; Status DC Vancomycin HCl (Vancomycin Trough Level) 1 each 1X ONCE MC ; Start 08/01/19 at 07:30; Stop 08/01/19 at 07:31; Status Cancel Micafungin Sodium 100 mg/Dextrose 100 ml @ 100 mls/hr Q24H IV Last administered on 08/11/19at 08:42; Start 07/31/19 at 08:00 Oseltamivir Phosphate (Tamiflu) 30 mg BID PO Last administered on 08/04/19at 21:02; Start 07/31/19 at 09:00; Stop 08/05/19 at 08:59; Status DC Linezolid/Dextrose 300 ml @ 300 mls/hr Q12HR IV Last administered on 08/04/19at 21:02; Start 07/31/19 at 09:00; Stop 08/05/19 at 08:02; Status DC Daptomycin 490 mg/ Sodium Chloride 50 ml @ 100 mls/hr Q24H IV Last administered on 07/31/19at 12:40; Start 07/31/19 at 10:00; Stop 08/01/19 at 09:01; Status DC Meropenem 1 gm/ Sodium Chloride 100 ml @ 200 mls/hr Q12HR IV Last administered on 08/11/19at 11:10; Start 07/31/19 at 09:00 Potassium Bicarbonate (Potassium Effervescent Tablet) 40 meq 1X ONCE PEG Last administered on 07/31/19at 10:54; Start 07/31/19 at 10:30; Stop 07/31/19 at 10:43; Status DC Famotidine (Pepcid Vial) 20 mg QHS IVP Last administered on 08/10/19at 20:47; Start 07/31/19 at 21:00; Stop 08/11/19 at 14:34; Status DC Albumin Human 100 ml @ 100 mls/hr TID IV Last administered on 08/02/19at 09:44; Start 07/31/19 at 14:30; Stop 08/02/19 at 09:59; Status DC Sodium Chloride 2,340 ml @ 2,340 mls/hr Q1H IV ; Start 07/31/19 at 14:48; Status UNV Sodium Chloride 500 ml @ 1,000 mls/hr PRN Q30MIN PRN IV SEE COMMENTS; Start 07/31/19 at 15:00; Status UNV Dobutamine HCl/ Dextrose 250 ml @ 0 mls/hr CONT PRN IV SEE I/O RECORD; Start 07/31/19 at 15:00; Status UNV Ondansetron HCl (Zofran) 4 mg PRN Q6HRS PRN IV NAUSEA/VOMITING; Start 07/31/19 at 15:00 Prochlorperazine (Compazine) 25 mg PRN Q12HR PRN [place] NAUSEA/VOMITING; Start 07/31/19 at 15:00 Famotidine (Pepcid Vial) 20 mg BID IVP ; Start 07/31/19 at 21:00; Status UNV Sodium Chloride (Normal Saline Flush) 3 ml QSHIFT PRN IV AFTER MEDS AND BLOOD DRAWS; Start 07/31/19 at 15:00 Bisacodyl (Dulcolax Supp) 10 mg PRN DAILY PRN OH CONSTIPATION; Start 07/31/19 at 15:00 Thiamine HCl 100 mg/Dextrose 51 ml @ 102 mls/hr DAILY IV Last administered on 08/05/19at 10:15; Start 07/31/19 at 17:00; Stop 08/05/19 at 23:00; Status DC Vitamin A/Vitamin D (Vitamin A & D Ointment) 1 milton PRN Q1HR PRN TP SKIN PROTECTION Last administered on 08/03/19at 08:14; Start 07/31/19 at 16:45 Daptomycin 490 mg/ Sodium Chloride 50 ml @ 100 mls/hr Q48H IV Last administered on 08/03/19at 11:19; Start 08/01/19 at 10:00; Stop 08/04/19 at 07:59; Status DC Furosemide (Lasix) 40 mg 1X ONCE IVP Last administered on 08/01/19at 22:14; Start 08/01/19 at 22:30; Stop 08/01/19 at 22:31; Status DC Potassium Bicarbonate (Potassium Effervescent Tablet) 20 meq 1X ONCE PEG Last administered on 08/01/19at 22:14; Start 08/01/19 at 22:30; Stop 08/01/19 at 22:31; Status DC Lidocaine HCl (Buffered Lidocaine 1%) 3 ml STK-MED ONCE .ROUTE ; Start 08/03/19 at 09:05; Stop 08/03/19 at 09:05; Status DC Lidocaine HCl (Buffered Lidocaine 1%) 3 ml 1X ONCE INJ Last administered on 08/03/19at 09:28; Start 08/03/19 at 09:30; Stop 08/03/19 at 09:31; Status DC Multivitamins/ Minerals Therapeutic (Centrum Multivit-Mineral Liq) 5 ml DAILY PEG Last administered on 08/06/19at 10:26; Start 08/03/19 at 12:00 Sodium Chloride 1,000 ml @ 1,000 mls/hr Q1H PRN IV hypotension; Start 08/03/19 at 13:31; Stop 08/03/19 at 19:30; Status DC Sodium Chloride 1,000 ml @ 400 mls/hr Q2H30M PRN IV PATENCY; Start 08/03/19 at 13:31; Stop 08/04/19 at 01:30; Status DC Info (PHARMACY MONITORING -- do not chart) 1 each PRN DAILY PRN MC SEE COMMENTS; Start 08/03/19 at 13:45; Status UNV Info (PHARMACY MONITORING -- do not chart) 1 each PRN DAILY PRN MC SEE COMMENTS; Start 08/03/19 at 13:45; Stop 08/07/19 at 16:56; Status DC Ondansetron HCl (Zofran) 4 mg PRN Q6HRS PRN IV NAUSEA/VOMITING; Start 08/04/19 at 07:00; Stop 08/05/19 at 06:59; Status DC Fentanyl Citrate (Fentanyl 2ml Vial) 25 mcg PRN Q5MIN PRN IV MILD PAIN 1-3; Start 08/04/19 at 07:00; Stop 08/05/19 at 06:59; Status DC Fentanyl Citrate (Fentanyl 2ml Vial) 50 mcg PRN Q5MIN PRN IV MODERATE TO SEVERE PAIN; Start 08/04/19 at 07:00; Stop 08/05/19 at 06:59; Status DC Ringer's Solution 1,000 ml @ 30 mls/hr Q24H IV ; Start 08/04/19 at 07:00; Stop 08/04/19 at 18:59; Status DC Prochlorperazine Edisylate (Compazine) 5 mg PACU PRN PRN IV NAUSEA, MRX1; Start 08/04/19 at 07:00; Stop 08/05/19 at 06:59; Status DC Cefazolin Sodium 1 gm/Sodium Chloride 500 ml @ 500 mls/hr 1X ONCE IRR ; Start 08/04/19 at 06:00; Stop 08/04/19 at 06:59; Status DC Metoprolol Tartrate (Lopressor Vial) 5 mg Q6HRS IVP Last administered on 08/07/19at 11:35; Start 08/05/19 at 18:00; Stop 08/07/19 at 16:50; Status DC Thiamine Mononitrate (Vitamin B-1) 100 mg DAILY PEG Last administered on 08/06/19at 10:26; Start 08/06/19 at 09:00 Sodium Chloride 1,000 ml @ 1,000 mls/hr Q1H PRN IV hypotension; Start 08/05/19 at 16:00; Stop 08/05/19 at 21:59; Status DC Sodium Chloride (Normal Saline Flush) 10 ml 1X PRN PRN IV AP catheter pack; Start 08/05/19 at 16:00; Stop 08/06/19 at 15:59; Status DC Sodium Chloride (Normal Saline Flush) 10 ml 1X PRN PRN IV [employer]ER catheter pack; Start 08/05/19 at 16:00; Stop 08/06/19 at 15:59; Status DC Info (PHARMACY MONITORING -- do not chart) 1 each PRN DAILY PRN MC SEE COMMENTS; Start 08/05/19 at 20:30; Status Cancel Info (PHARMACY MONITORING -- do not chart) 1 each PRN DAILY PRN MC SEE COMMENTS; Start 08/05/19 at 20:30; Status UNV Propofol 100 ml @ 0 mls/hr CONT PRN IV SEE PROTOCOL Last administered on 08/06/19at 13:51; Start 08/06/19 at 13:45; Stop 08/07/19 at 11:18; Status DC Furosemide (Lasix) 40 mg 1X ONCE IVP Last administered on 08/07/19at 10:32; Start 08/07/19 at 10:15; Stop 08/07/19 at 10:19; Status DC Metoprolol Tartrate (Lopressor Vial) 7.5 mg Q6HRS IVP Last administered on 08/11/19at 13:14; Start 08/07/19 at 18:00 Hydralazine HCl (Apresoline Inj) 10 mg PRN Q4HRS PRN IVP ELEVATED BP, SEE COMMENTS Last administered on 08/08/19at 22:36; Start 08/07/19 at 17:00; Stop 08/09/19 at 07:42; Status DC Lorazepam (Ativan Inj) 0.5 mg PRN Q4HRS PRN IVP ANXIETY / AGITATION Last administered on 08/11/19at 00:14; Start 08/07/19 at 19:30 Acetaminophen (Tylenol Supp) 650 mg PRN Q6HRS PRN [place] MILD PAIN / TEMP Last administered on 08/09/19at 07:27; Start 08/07/19 at 19:30 Hydralazine HCl (Apresoline Inj) 10 mg PRN Q4HRS PRN IVP ELEVATED BP, SEE COMMENTS Last administered on 08/10/19at 10:08; Start 08/08/19 at 12:45 Dextrose 1,000 ml @ 50 mls/hr Q20H IV Last administered on 08/11/19at 06:05; Start 08/08/19 at 16:30; Stop 08/11/19 at 11:13; Status DC Potassium Chloride/Water 100 ml @ 100 mls/hr Q1H IV Last administered on 08/10/19at 10:00; Start 08/10/19 at 08:00; Stop 08/10/19 at 10:59; Status DC Potassium Chloride/Water 100 ml @ 50 mls/hr Q2H IV Last administered on 08/11/19at 12:50; Start 08/11/19 at 07:00; Stop 08/11/19 at 14:59 Magnesium Sulfate 50 ml @ 25 mls/hr 1X ONCE IV ; Start 08/11/19 at 11:15; Stop 08/11/19 at 13:14; Status DC Amino Acids/ Glycerin/ Electrolytes 1,000 ml @ 80 mls/hr [id number] IV ; Start 08/11/19 at 11:15 Famotidine (Pepcid Vial) 20 mg BID IVP ; Start 08/11/19 at 21:00 Active Scripts Active Proair Hfa (Albuterol Sulfate) 8.5 Gm Hfa.aer.ad 2 Puff IH PRN Q4-6HRS PRN 21 Days Tessalon Perle (Benzonatate) 100 Mg Capsule 1 Cap PO TID Prednisone 50 Mg Tablet 1 Tab PO DAILY Cyclobenzaprine Hcl 5 Mg Tablet 1 Tab PO TID Ibuprofen 800 Mg Tablet 800 Mg PO Q6-8HRS Zofran Odt (Ondansetron) 4 Mg Tab.rapdis 1 Tab SL Q8HRS Ultram (Tramadol Hcl) 50 Mg Tablet 1 Tab PO Q6HRS Vitals/I & O Vital Sign - Last 24 Hours 08/10/19 08/10/19 08/10/19 08/10/19 16:20 17:18 19:15 19:28 Temp 99.4 99.4 Pulse 76 71 Resp 18 B/P (MAP) 181/81 140/69 (92) Pulse Ox 93 94 94 O2 Delivery Room Air Room Air Room Air 08/10/19 08/10/19 08/11/19 08/11/19 20:45 23:20 00:00 00:21 Temp 99.4 99.4 Pulse 65 57 Resp 18 B/P (MAP) 162/86 (111) Pulse Ox 95 O2 Delivery Room Air Room Air Room Air O2 Flow Rate 2.0 08/11/19 08/11/19 08/11/19 08/11/19 03:11 03:25 06:00 07:00 Temp 98.3 97.7 98.3 97.7 Pulse 70 54 73 Resp 18 19 B/P (MAP) 127/61 (83) 149/79 (102) Pulse Ox 94 97 O2 Delivery Room Air Room Air Room Air 08/11/19 08/11/19 08/11/19 08/11/19 07:38 10:47 12:49 13:14 Temp 97.8 97.8 Pulse 74 74 Resp 18 B/P (MAP) 154/72 (99) 154/72 Pulse Ox 92 97 O2 Delivery Room Air Room Air Room Air 08/11/19 14:50 Temp 97.8 97.8 Pulse 74 Resp 19 B/P (MAP) 145/70 (95) Pulse Ox 97 O2 Delivery Room Air Intake and Output 08/10/19 08/10/19 08/11/19 15:00 23:00 07:00 Intake Total 0 ml Output Total 800 ml 1800 ml Balance -800 ml -1800 ml Nutrition Consultation Dietary Evaluation: Recommendations by RD: Dietary education by RD, Increase Calorie Intake, Protein supplementation Comments: REC advance diet as able pending [employer] eval, goal diet regular w/Javi BID and continue MVI for wound healing If unable to advance diet within 48 - 72 hrs , recommend consideration of dobhoff placement for TFs per following: Jevity 1.5@goal rate 60 ml/hr w/200 ml water flushes q4 hrs, w/Javi BID via dobhoff and liquid MVI (wound healing) Expected Outcomes/Goals: New goal 08/06: intiaition of nutrition within 24 - 72 hrs s/p extubation- not met, goal ongoing Malnutrition Findings: Food and Nutrition Intake (Mod: <75% est energy req 7days Body Fat Depletion (Non Severe: Mild Depletion Weight Status: Appropriate CHI TONY MD Aug 11, 2019 14:59
[2019-08-11] MEDS ORDERED: AMINO AC 3%/ELECTROLYTE/GLYCER 1,000 ML IV SCH (15:00)
[2019-08-11] MEDS: AMINO AC 3%/ELECTROLYTE/GLYCER 1,000 ML IV SCH ×2 (15:39→21:21)
--- NOTE | 2019-08-11 15:45 | NUR ---
The patient pulled his central line this morning, checked area, no bleeding noted, dry dressing placed on the site. 2 peripheral IV's placed by this nurse with no complications noted. Dialysis catheter removed at [address] Caal's order, patient tolerated removal, no complications observed. The patient was also started on diet after ST assessment, tolerated thin liquids well. Patient was reoriented and told not to pull his IV's, he verbalized understanding.
[2019-08-11 19:00] VITALS: BP 98/68
[2019-08-11] MEDS: FAMOTIDINE 20 MG/2 ML VIAL IVP SCH (21:08)
[2019-08-11 23:00] VITALS: BP 114/73
[2019-08-11] MEDS ORDERED: ACETAMINOPHEN 325 MG TABLET. PO PRN (23:45)
[2019-08-12] MEDS: IPRATRPIUM/ALBUTEROL 0.5/2.5MG 3 ML NEBU. NEB SCH ×3 (00:20→08:09)
--- NOTE | 2019-08-12 02:24 | NUR ---
Pt has pulled out 2 peripheral IV's this shift and has attempted to pull out another one by biting the tubing. Pt soft mittens have been placed and pt given ativan prn however pt still restless and trying to pull things off. Sat in room with pt to attempt to reorient however pt continues to want to go upstairs and states his abdomen hurts. professional advisor Physician paged.
[2019-08-12] MEDS ORDERED: HYDROcodone/APAP 5/325MG 1 TAB TABLET PO PRN ×2 (03:00)
[2019-08-12] MEDS ORDERED: HALOPERIDOL LACTATE 5 MG/ML VIAL. IM PRN (03:00)
[2019-08-12 03:41] VITALS: BP 105/57
[2019-08-12] MEDS: METOPROLOL TARTRATE 5 MG/5 ML VIAL. IVP SCH ×2 (05:53)
--- NOTE | 2019-08-12 07:25 | NUR ---
SAEED, Paged Dr. Summers through answering service requesting stat CXR due to elevated respirations. Day nurse notified.
[2019-08-12 07:50] LABS: CALCIUM 8.3 mg/dL (8.5-10.1); CREATININE 2.5 mg/dL (0.7-1.3); MAGNESIUM 2.1 mg/dL (1.8-2.4); PHOSPHORUS 7.3 mg/dL (2.6-4.7); POTASSIUM 4.5 mmol/L (3.5-5.1)
[2019-08-12 07:55] VITALS: BP 91/58
[2019-08-12] MEDS: MICAFUNGIN 100 MG in IV DEXTROSE 5% 100ML 100 ML IV SCH (08:00)
--- NOTE | 2019-08-12 08:16 | RAD ---
CHEST AP ONLY History: Respiratory distress Comparison: August 09, 2019 Findings: Multifocal patchy opacities most prominent within the bilateral midlung, decreased in the lower lungs bilaterally. Decreased small right pleural effusion. No pneumothorax. Unchanged heart size. Impression: 1. Multifocal pulmonary opacities, decreased within the lung bases. Electronically signed by: Tramaine Granado DO (08/12/2019 8:13 AM) [id number]
[2019-08-12] MEDS ORDERED: MAGNESIUM SULFATE 1GM 100 ML IV ONE ×2 (08:30→09:00)
[2019-08-12 08:56] LABS: BASE EXCESS ABG -20 mmol/L (-3-3); HCO3 ABG 7 mmol/L (21-28); PO2 ABG 118 mmHg (65-108); SAT O2 ABG 96 % (92-99)
[2019-08-12] MEDS: FAMOTIDINE 20 MG/2 ML VIAL IVP SCH (09:00)
[2019-08-12] MEDS: MEROPENEM 1 GM in IV NORMAL SALINE 100ML 100 ML IV SCH (09:00)
[2019-08-12] MEDS: MULTIVITAMINS,THERAPEUTIC 5 ML ORAL LIQUID. PEG SCH (09:00)
[2019-08-12] MEDS: THIAMINE 100 MG TABLET. PEG SCH (09:00)
[2019-08-12 09:15] VITALS: BP 105/54
[2019-08-12 09:30] VITALS: BP 58/25
[2019-08-12 09:58] LABS: FIO2 ABG 100; PCO2 ABG 19 mmHg (35-46)
--- NOTE | 2019-08-12 10:00 | NUR ---
The patient was noted to be tachypneic at 30/min, RT was in the room and gave him a breathing treatment. This nurse noted no improvement and notified Dr. Vigil who was rounding the unit. The physician responded at the bedside and new orders were placed. The patient went into cardiorespiratory arrest,code blue initiated at 0834. Resuscitation was successful, patient was then transferred to the ICU.
--- NOTE | 2019-08-12 10:02 | NUR ---
Patient coded on 6S-- see Code Sheet. Attempted to contact family twice. No answer. After chest code, patient came to and was able to respond to questions. When asked about being placed on the ventilator, patient responded "no" and when RN asked if patient wanted to be coded/have chest compressions if his heart were to stop, patient also replied "no". Due to patient's mentation/history, RN attempted to contact family once again. No answer. Patient transferred to ICU room 115 on ventimask. SpO2 decreasing, BP decreasing. Dr. Alejandre and Dr. Vigil made decision to make patient DNR per patient's request, his hx and critical state. Patient will not be coded. Will continue to attempt to contact family. See assessments, VS.
[2019-08-12 10:08] LABS: BASO # 0.5 x10^3/uL (0.0-0.2); BASO % 1 % (0-3); EOS # 0.1 x10^3/uL (0.0-0.7); EOS % 0 % (0-3); HEMATOCRIT 24.3 % (39.0-53.0); HEMOGLOBIN 7.2 g/dL (13.0-17.5); LYMPH # 6.5 x10^3/uL (1.0-4.8); LYMPH % 14 % (24-48); MEAN CORPUSCULAR HEMOGLOBIN 32 pg (25-35); MEAN CORPUSCULAR HGB CONC 30 g/dL (31-37); MEAN CORPUSCULAR VOLUME 107 fL (79-100); MONO # 3.1 x10^3/uL (0.0-1.1); MONO % 7 % (0-9); NEUT # 35.9 x10^3/uL (1.8-7.7); NEUT % 78 % (31-73); PLATELET COUNT 387 x10^3/uL (140-400); RED BLOOD COUNT 2.28 x10^6/uL (4.30-5.70); RED CELL DISTRIBUTION WIDTH 16.1 % (11.5-14.5)
--- NOTE | 2019-08-12 10:10 | PDOC ---
Infectious Disease Note Subjective Subjective s/p respiratory failure and no pulse Vital Sign Vital Signs Vital Signs Date Time Temp Pulse Resp B/P (MAP) Pulse Ox O2 Delivery O2 Flow Rate FiO2 08/12/19 08:10 92 Nasal Cannula 2.0 08/12/19 07:55 98.3 51 20 91/58 (69) 98.3 Physical Exam PHYSICAL EXAM pt is unresponsive, no pulse , no respiration Labs Lab Laboratory Tests Test 08/11/19 15:25 08/11/19 21:00 08/12/19 07:05 08/12/19 08:45 Heparin Anti-Xa Act, Unfractionated 0.48 IU/mL (0.30-0.70) 0.80 IU/mL (0.30-0.70) 0.75 IU/mL (0.30-0.70) Sodium Level 144 mmol/L (136-145) Potassium Level 4.5 mmol/L (3.5-5.1) Chloride Level 106 mmol/L (98-107) Carbon Dioxide Level 14 mmol/L (21-32) Anion Gap 24 (6-14) Blood Urea Nitrogen 50 mg/dL (8-26) Creatinine 2.5 mg/dL (0.7-1.3) Estimated GFR (Cockcroft-Gault) 26.0 Glucose Level 76 mg/dL (70-99) Calcium Level 8.3 mg/dL (8.5-10.1) Phosphorus Level 7.3 mg/dL (2.6-4.7) Magnesium Level 2.1 mg/dL (1.8-2.4) Glucose (Fingerstick) 30 mg/dL (70-99) Test 08/12/19 08:51 08/12/19 08:54 08/12/19 08:55 O2 Saturation 96 % (92-99) Arterial Blood pH 7.15 (7.35-7.45) Arterial Blood pCO2 at Patient Temp 19 mmHg (35-46) Arterial Blood pO2 at Patient Temp 118 mmHg (65-108) Arterial Blood HCO3 7 mmol/L (21-28) Arterial Blood Base Excess -20 mmol/L (-3-3) FiO2 100 Glucose (Fingerstick) 243 mg/dL (70-99) Ammonia 12 mcmol/L (11-34) Troponin I Quantitative 0.029 ng/mL (0.000-0.055) Objective Assessment Fever Septic shock procalcitonin 25.26 Strep pneumo sepsis (4 of 4 bottles), 07/30 ? source.- ?lung with strep pneumo ? foot -Repeat BC and 08/01 neg to date. TTE (07/31) no evidence veg Leukocytosis - improved Influenza A, respiratory tract infection. Treated Acute hypoxic respiratory failure with pneumonia, status post intubation. 07/31. strep pneumo & GPR - no identified on gram stain/mold. Severe peripheral vascular disease, right foot ischemia/gangrene Encephalopathy. Lactic acidosis. Acute kidney injury - Hyperbilirubinemia. LFT elevation. Atrial fibrillation with rapid ventricular response, on amiodarone. Homelessness. Groin dermatitis. Tinea Hypernatremia Plan Plan of Care pt was pronounced ROBERTO CHAWLA MD Aug 12, 2019 10:10
[2019-08-12 10:14] LABS: WHITE BLOOD COUNT 46.2 x10^3/uL (4.0-11.0)
[2019-08-12 10:33] LABS: ALBUMIN 2.1 g/dL (3.4-5.0); ALBUMIN/GLOBULIN RATIO 0.5 (1.0-1.7); CALCIUM 8.5 mg/dL (8.5-10.1); CREATININE 2.8 mg/dL (0.7-1.3); GFR 22.8; TOTAL BILIRUBIN 2.7 mg/dL (0.2-1.0); TOTAL PROTEIN 6.1 g/dL (6.4-8.2)
--- NOTE | 2019-08-12 10:34 | PDOC ---
PULMONARY PROGRESS NOTES Subjective extubated on 08/07/2019 ,transfer to ICU this am after rapid response with hypoxia/ dyspnea pt has told nurses that he wants to . refused surgery before Vitals Vital Signs Date Time Temp Pulse Resp B/P (MAP) Pulse Ox O2 Delivery O2 Flow Rate FiO2 08/12/19 08:10 92 Nasal Cannula 2.0 08/12/19 07:55 98.3 51 20 91/58 (69) 98.3 Lungs: Clear Cardiovascular: S1, S2 Abdomen: Soft Extremities: Other (PVD) Skin: Warm Labs Laboratory Tests Test 08/10/19 15:40 08/10/19 23:50 08/11/19 06:10 08/11/19 15:25 Heparin Anti-Xa Act, Unfractionated 0.77 IU/mL (0.30-0.70) 0.56 IU/mL (0.30-0.70) 0.72 IU/mL (0.30-0.70) 0.48 IU/mL (0.30-0.70) Sodium Level 150 mmol/L (136-145) Potassium Level 2.8 mmol/L (3.5-5.1) Chloride Level 115 mmol/L (98-107) Carbon Dioxide Level 26 mmol/L (21-32) Anion Gap 9 (6-14) Blood Urea Nitrogen 35 mg/dL (8-26) Creatinine 1.1 mg/dL (0.7-1.3) Estimated GFR (Cockcroft-Gault) 67.0 Glucose Level 93 mg/dL (70-99) Calcium Level 7.8 mg/dL (8.5-10.1) Magnesium Level 1.3 mg/dL (1.8-2.4) Test 08/11/19 21:00 08/12/19 07:05 08/12/19 08:45 08/12/19 08:51 Heparin Anti-Xa Act, Unfractionated 0.80 IU/mL (0.30-0.70) 0.75 IU/mL (0.30-0.70) Sodium Level 144 mmol/L (136-145) Potassium Level 4.5 mmol/L (3.5-5.1) Chloride Level 106 mmol/L (98-107) Carbon Dioxide Level 14 mmol/L (21-32) Anion Gap 24 (6-14) Blood Urea Nitrogen 50 mg/dL (8-26) Creatinine 2.5 mg/dL (0.7-1.3) Estimated GFR (Cockcroft-Gault) 26.0 Glucose Level 76 mg/dL (70-99) Calcium Level 8.3 mg/dL (8.5-10.1) Phosphorus Level 7.3 mg/dL (2.6-4.7) Magnesium Level 2.1 mg/dL (1.8-2.4) Glucose (Fingerstick) 30 mg/dL (70-99) O2 Saturation 96 % (92-99) Arterial Blood pH 7.15 (7.35-7.45) Arterial Blood pCO2 at Patient Temp 19 mmHg (35-46) Arterial Blood pO2 at Patient Temp 118 mmHg (65-108) Arterial Blood HCO3 7 mmol/L (21-28) Arterial Blood Base Excess -20 mmol/L (-3-3) FiO2 100 Test 08/12/19 08:54 08/12/19 08:55 08/12/19 09:50 Glucose (Fingerstick) 243 mg/dL (70-99) Ammonia 12 mcmol/L (11-34) Troponin I Quantitative 0.029 ng/mL (0.000-0.055) White Blood Count 46.2 x10^3/uL (4.0-11.0) Red Blood Count 2.28 x10^6/uL (4.30-5.70) Hemoglobin 7.2 g/dL (13.0-17.5) Hematocrit 24.3 % (39.0-53.0) Mean Corpuscular Volume 107 fL (79-100) Mean Corpuscular Hemoglobin 32 pg (25-35) Mean Corpuscular Hemoglobin Concent 30 g/dL (31-37) Red Cell Distribution Width 16.1 % (11.5-14.5) Platelet Count 387 x10^3/uL (140-400) Neutrophils (%) (Auto) 78 % (31-73) Lymphocytes (%) (Auto) 14 % (24-48) Monocytes (%) (Auto) 7 % (0-9) Eosinophils (%) (Auto) 0 % (0-3) Basophils (%) (Auto) 1 % (0-3) Neutrophils # (Auto) 35.9 x10^3/uL (1.8-7.7) Lymphocytes # (Auto) 6.5 x10^3/uL (1.0-4.8) Monocytes # (Auto) 3.1 x10^3/uL (0.0-1.1) Eosinophils # (Auto) 0.1 x10^3/uL (0.0-0.7) Basophils # (Auto) 0.5 x10^3/uL (0.0-0.2) Laboratory Tests Test 08/11/19 15:25 08/11/19 21:00 08/12/19 07:05 08/12/19 08:45 Heparin Anti-Xa Act, Unfractionated 0.48 IU/mL (0.30-0.70) 0.80 IU/mL (0.30-0.70) 0.75 IU/mL (0.30-0.70) Sodium Level 144 mmol/L (136-145) Potassium Level 4.5 mmol/L (3.5-5.1) Chloride Level 106 mmol/L (98-107) Carbon Dioxide Level 14 mmol/L (21-32) Anion Gap 24 (6-14) Blood Urea Nitrogen 50 mg/dL (8-26) Creatinine 2.5 mg/dL (0.7-1.3) Estimated GFR (Cockcroft-Gault) 26.0 Glucose Level 76 mg/dL (70-99) Calcium Level 8.3 mg/dL (8.5-10.1) Phosphorus Level 7.3 mg/dL (2.6-4.7) Magnesium Level 2.1 mg/dL (1.8-2.4) Glucose (Fingerstick) 30 mg/dL (70-99) Test 08/12/19 08:51 08/12/19 08:54 08/12/19 08:55 08/12/19 09:50 O2 Saturation 96 % (92-99) Arterial Blood pH 7.15 (7.35-7.45) Arterial Blood pCO2 at Patient Temp 19 mmHg (35-46) Arterial Blood pO2 at Patient Temp 118 mmHg (65-108) Arterial Blood HCO3 7 mmol/L (21-28) Arterial Blood Base Excess -20 mmol/L (-3-3) FiO2 100 Glucose (Fingerstick) 243 mg/dL (70-99) Ammonia 12 mcmol/L (11-34) Troponin I Quantitative 0.029 ng/mL (0.000-0.055) White Blood Count 46.2 x10^3/uL (4.0-11.0) Red Blood Count 2.28 x10^6/uL (4.30-5.70) Hemoglobin 7.2 g/dL (13.0-17.5) Hematocrit 24.3 % (39.0-53.0) Mean Corpuscular Volume 107 fL (79-100) Mean Corpuscular Hemoglobin 32 pg (25-35) Mean Corpuscular Hemoglobin Concent 30 g/dL (31-37) Red Cell Distribution Width 16.1 % (11.5-14.5) Platelet Count 387 x10^3/uL (140-400) Neutrophils (%) (Auto) 78 % (31-73) Lymphocytes (%) (Auto) 14 % (24-48) Monocytes (%) (Auto) 7 % (0-9) Eosinophils (%) (Auto) 0 % (0-3) Basophils (%) (Auto) 1 % (0-3) Neutrophils # (Auto) 35.9 x10^3/uL (1.8-7.7) Lymphocytes # (Auto) 6.5 x10^3/uL (1.0-4.8) Monocytes # (Auto) 3.1 x10^3/uL (0.0-1.1) Eosinophils # (Auto) 0.1 x10^3/uL (0.0-0.7) Basophils # (Auto) 0.5 x10^3/uL (0.0-0.2) Medications Active Scripts Medications Dose Route/Sig Max Daily Dose Days Date Category Proair Hfa (Albuterol Sulfate) 8.5 Gm Hfa.aer.ad 2 Puff IH PRN Q4-6HRS PRN 21 07/25/19 Rx Tessalon Perle (Benzonatate) 100 Mg Capsule 1 Cap PO TID 07/25/19 Rx Prednisone 50 Mg Tablet 1 Tab PO DAILY 07/25/19 Rx Cyclobenzaprine Hcl 5 Mg Tablet 1 Tab PO TID 03/21/17 Rx Ibuprofen 800 Mg Tablet 800 Mg PO Q6-8HRS 03/21/17 Rx Zofran Odt (Ondansetron) 4 Mg Tab.rapdis 1 Tab SL Q8HRS 01/07/17 Rx Ultram (Tramadol Hcl) 50 Mg Tablet 1 Tab PO Q6HRS 01/29/16 Rx Comments CXR 08/11 patchy infiltrate LLL Impression . IMPRESSION: 1. Acute hypoxemic respiratory failure. MULTIFACTORIAL, now with recurrent hypoxia/ RF 2. Sepsis. 3. Pneumonia, suspect gram-negative, possibly gram-positive. 4. Influenza A. 5. New onset atrial fibrillation. 6. Peripheral vascular disease with possible peripheral emboli. 7. Metabolic acidosis. 8. Acute renal failure. 9. Severe protein malnutrition, present upon admission. 10. Elevated total bilirubin. 11. Abnormal cxr/ CHF Plan . extubated on 08/06, Now with recurrent hypoxia/ RF Pt informed RN that he does not want to live, refused surgery No family member wants to make decision for him I agree with his decision for comfort care/ d/w DR Vigil. He agrees DNR Nebs Antibiotics per ID D/W INEZ PEÑA MD Aug 12, 2019 10:34
[2019-08-12 10:43] LABS: POTASSIUM 6.1 mmol/L (3.5-5.1)
--- NOTE | 2019-08-12 10:43 | NUR ---
1024 Dr Blandon /[place] discussed patient situation. Prognosis and general repetitive wishes expressed. Notes per MD noted . Resp slowing /Buffy- giordano to apnea followed by progressive rhythm of AIVR /dieing heart . (see strips).Dr Jonnie Xavier at bedside w pronunciation. Continued attemmts to notify estranged family
--- NOTE | 2019-08-12 10:54 | NUR ---
RN called [facility], spoke with rep Morgan. Notified of TOD. Was told patient was not a candidate for tissue or organ donation. Referral number [id number].
--- NOTE | 2019-08-12 10:55 | NUR ---
Late entry: Patient transferred post code w ROSC ( reported probable resp) to ICU 115. HR sinus/freq PA/PVC'. Bp marginal -bolus at 500 /hr. Prognoses poor. Attempt x4 to notify estranged family.
--- NOTE | 2019-08-12 10:56 | NUR ---
Another attempt made to contact family. No answer.
--- NOTE | 2019-08-12 12:43 | NUR ---
[place] notified earlier #[id number] "not organ donor " as reported per [place] ie; unknown health history.Further attempts to notify estranged family w/o success.... phone message to reference Mary Rm [phone] informing of "natural " w/o return call.
[2019-08-12 13:07] LABS: % ATYL 1 % (0-0); % BANDS 4 % (0-9); % LYMPHS 15 % (24-48); % MONOS 6 % (0-10); % SEGS 74 % (35-66); ANISOCYTOSIS PRESENT; PLT ESTIMATE ADEQUATE (ADEQUATE)
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
--- NOTE | 2019-08-12 16:42 | NUR ---
Too morgue per cart.w shoes ,pants,sox.
== END 2019-08-12 10:24 | disposition expired | DRG 870 ==
LOC: ER 17:36 → 1 WEST ICU 20:09 → 6 SOUTH 08-09 20:54 → 1 WEST ICU 08-12 09:10
PROVIDERS: ADMIT Family Medicine; ATTEND Family Medicine
PROC: 02HV33Z Insertion of Infusion Device into Superior Vena Cava, Percutaneous Approach (ICD-10-PCS; principal; 2019-07-30)
PROC: 5A1955Z Respiratory Ventilation, Greater than 96 Consecutive Hours (ICD-10-PCS; 2019-07-30)
PROC: B548ZZA Ultrasonography of Superior Vena Cava, Guidance (ICD-10-PCS; 2019-07-30)
PROC: 0BH17EZ Insertion of Endotracheal Airway into Trachea, Via Natural or Artificial Opening (ICD-10-PCS; 2019-07-30)
PROC: 5A09357 Assistance with Respiratory Ventilation, Less than 24 Consecutive Hours, Continuous Positive Airway Pressure (ICD-10-PCS; 2019-07-30)
DX: A41.9 Sepsis, unspecified organism (principal); E43 Unspecified severe protein-calorie malnutrition; J96.21 Acute and chronic respiratory failure with hypoxia; J18.9 Pneumonia, unspecified organism; J10.00 Influenza due to other identified influenza virus with unspecified type of pneumonia; J96.22 Acute and chronic respiratory failure with hypercapnia; R65.21 Severe sepsis with septic shock; E87.0 Hyperosmolality and hypernatremia; E87.4 Mixed disorder of acid-base balance; G93.1 Anoxic brain damage, not elsewhere classified; J44.0 Chronic obstructive pulmonary disease with (acute) lower respiratory infection; N17.9 Acute kidney failure, unspecified; N39.0 Urinary tract infection, site not specified; R17 Unspecified jaundice; I48.91 Unspecified atrial fibrillation; B35.9 Dermatophytosis, unspecified; E87.6 Hypokalemia; F17.210 Nicotine dependence, cigarettes, uncomplicated; I11.0 Hypertensive heart disease with heart failure; I50.9 Heart failure, unspecified; I73.9 Peripheral vascular disease, unspecified; L30.9 Dermatitis, unspecified; Z59.0 Homelessness; Z82.49 Family history of ischemic heart disease and other diseases of the circulatory system; Z82.5 Family history of asthma and other chronic lower respiratory diseases; Z91.19 Patient's noncompliance with other medical treatment and regimen; Z88.5 Allergy status to narcotic agent; Z68.23 Body mass index [BMI] 23.0-23.9, adult
CPT/HCPCS: 36415; 36556; 36600; 51702; 70450; 71045; 76770; 76937; 80048; 80053; 80069; 81001; 82140; 82550; 82805; 82962; 83605; 83735; 83880; 84100; 84145; 84443; 84484; 85007; 85025; 85379; 85384; 85520; 85610; 85730; 86706; 87040; 87070; 87077; 87086; 87205; 87340; 87804; 93005; 93306; 93923; 94003; 94640; 94644; 94660; 94760; 96365; 96367; 96368; 96375; C1892; J0282; J0360; J0878; J1160; J1630; J1644; J1940; J2020; J2060; J2185; J2248; J2250; J2270; J2405; J2543; J2704; J3010; J3370; J3411; J3475; J3480; J3490; J7030; J7040; J7050; J7060; P9046; 92526; 92610; 97110; 97530; 97535; 99291-25; G0378; J7613